=== PATIENT | male | born 1950 | race Caucasian/White ===

== ENCOUNTER → 2017-06-05 08:12 | Outpatient (CLI) | payer MEDICARE, OTHER, SELFPAY ==
--- NOTE | 2017-06-05 08:17 | EKG12_ITS ---
Test Reason : PRE OP Blood Pressure : / mmHG Vent. Rate : 069 BPM Atrial Rate : 069 BPM P-R Int : 200 ms QRS Dur : 068 ms QT Int : 388 ms P-R-T Axes : 045 018 024 degrees QTc Int : 415 ms Normal sinus rhythm Normal ECG When compared with ECG of 16-MAY-2014 09:37, Vent. rate has decreased BY 43 BPM Confirmed by ANGELIQUE VILLATORO, JUANITO ([id number]), film and video editor DREAD MADRID ([id number] on 06/06/2017 8:13:08 AM Referred By: Dariel Galan Confirmed By:JUANITO MERINO MD
== END ==
PROVIDERS: Family Provider Family Medicine; PCP Family Medicine; Visit Provider Urology
DX: I10 Essential (primary) hypertension (principal); E11.9 Type 2 diabetes mellitus without complications; E78.00 Pure hypercholesterolemia, unspecified
CPT/HCPCS: 93005

== ENCOUNTER 2017-09-18 05:35 | Inpatient (IN) | payer MEDICARE, OTHER, SELFPAY ==
[2017-08-30 14:05] VITALS: BP 146/70; PULSE 83; RESP 18; TEMP 36.3; O2SAT 93; BMI 46.7
[2017-08-30 14:36] LABS: Hematocrit 38.8 % (40-54); Hemoglobin 13.3 g/dl (13.0-16.5); Mean Corp Hgb Conc 34.3 g/gl (32-36); Mean Corpuscular Hgb 30.8 pg (27.0-32.0); Mean Corpuscular Volume 89.8 fL (80-94); Mean Platelet Vol. 10.3 fl (6.2-12.0); Platelet Count 67 K/mm3 (150-450); RBC Distribution Width CV 14.1 % (11.6-14.6); RBC Distribution Width SD 46.8 fl (35.1-43.9); Red Blood Count 4.32 M/mm3 (4.6-6.2); White Blood Count 2.9 K/mm3 (4.4-11.0)
[2017-08-30 14:37] LABS: Scan Indicated on CBC? Y/N NO
[2017-08-30 14:51] LABS: Anion Gap 6 (5-15); BUN 9 mg/dL (7-18); BUN/Creat Ratio 10.5 RATIO (10-20); Calcium,Total 8.8 mg/dL (8.5-10.1); Chloride 104 mmol/L (98-107); Creatinine, Serum 0.86 mg/dL (0.70-1.30); EST Glomerular Filtration Rate 94 mL/min (>60); Est Glom Filt Rate - Afr Amer 113 mL/min (>60); Estimated Creatinine Clearance 74.19 ml/min; Glucose 259 mg/dL (74-106); Potassium 4.1 mmol/L (3.5-5.1); Sodium Level 135 mmol/L (136-145)
[2017-09-18] VITALS (11 sets, daily range): BP systolic 122–166; BP diastolic 64–81; PULSE 80–93; RESP 14–18; TEMP 35.8–36.6; O2SAT 94–98; BMI 46.0; BMI 46.3
[2017-09-18 07:08] LABS: Platelet Count 61 K/mm3 (150-450)
--- NOTE | 2017-09-18 15:45 | RAD_ITS ---
STUDY: X-RAY - PELVIS AND LEFT HIP REASON FOR EXAM: Male, 66 years old. Postop TECHNIQUE: Radiological exam, hip, unilateral, with pelvis when performed; 2 or 3 views. COMPARISON: None. FINDINGS: The patient is status post left hip arthroplasty. The hardware is intact and alignment is satisfactory. RAD/Hip Min 2 Views (Portable) IMPRESSION: Status post left hip arthroplasty with intact hardware and satisfactory alignment. Electronically Signed: Billy Walker, at 17:14 EDT Tel , Service support ,
[2017-09-18] MEDS: Lactated Ringers 1,000 ML 125 ML IV (17:10)
[2017-09-18] MEDS: Cefazolin 1 GM/50 ML BAG IV (22:21)
[2017-09-18] MEDS: Glucerna Shake 120 ML LIQUID PO (22:22)
[2017-09-18] MEDS: Tamsulosin HCl 0.4 MG Capsule PO (22:22)
[2017-09-18] MEDS: Atorvastatin Calcium 10 MG Tablet PO (22:22)
[2017-09-18] MEDS: Acetaminophen 500 MG Tablet 1000 MG PO (22:23)
[2017-09-18] MEDS: Senna/Docusate Sodium 1 Tablet 2 TABLET PO (22:23)
[2017-09-19 02:49] VITALS: BP 130/67; PULSE 86; RESP 16; TEMP 37.1; O2SAT 99
[2017-09-19 05:55] LABS: Hemoglobin 10.4 g/dl (13.0-16.5); Mean Corp Hgb Conc 33.5 g/gl (32-36); Mean Corpuscular Hgb 30.6 pg (27.0-32.0); Mean Corpuscular Volume 91.2 fL (80-94); Mean Platelet Vol. 9.5 fl (6.2-12.0); Platelet Count 66 K/mm3 (150-450); RBC Distribution Width CV 14.1 % (11.6-14.6); RBC Distribution Width SD 46.9 fl (35.1-43.9)
[2017-09-19 06:03] LABS: Scan Indicated on CBC? Y/N NO
[2017-09-19 06:17] LABS: Anion Gap 7 (5-15); BUN 12 mg/dL (7-18); BUN/Creat Ratio 17.4 RATIO (10-20); Calcium,Total 7.6 mg/dL (8.5-10.1); Chloride 106 mmol/L (98-107); Creatinine, Serum 0.69 mg/dL (0.70-1.30); EST Glomerular Filtration Rate 121 mL/min (>60); Est Glom Filt Rate - Afr Amer 147 mL/min (>60); Glucose 170 mg/dL (74-106); Potassium 4.2 mmol/L (3.5-5.1); Sodium Level 139 mmol/L (136-145)
[2017-09-19] MEDS: Acetaminophen 500 MG Tablet 1000 MG PO ×3 (06:44→21:28)
[2017-09-19] MEDS: Cefazolin 1 GM/50 ML BAG IV (06:44)
[2017-09-19 06:51] LABS: Bedside Glucose 169 mg/dL (70-110)
[2017-09-19] MEDS: oxyCODONE 5 MG Tablet PO ×2 (07:57→12:15)
[2017-09-19] MEDS: Aspirin 325 MG Tablet PO (07:58)
[2017-09-19] MEDS: Finasteride 5 MG Tablet PO (07:59)
[2017-09-19] MEDS: Cyanocobalamin 500 MCG Tablet 1000 MCG PO (07:59)
[2017-09-19] MEDS: Famotidine 20 MG Tablet PO (07:59)
[2017-09-19] MEDS: Celecoxib 200 MG Capsule PO ×2 (07:59→20:00)
[2017-09-19] MEDS: Atenolol 25 MG Tablet 12.5 MG PO (08:00)
[2017-09-19] MEDS: Losartan Potassium 50 MG Tablet PO (08:01)
[2017-09-19 08:07] VITALS: BP 120/63; PULSE 98; RESP 18; TEMP 36.9; O2SAT 95
--- NOTE | 2017-09-19 09:24 | PCM.PN.ORT ---
Subjective: Patient is resting in bed during exam. No adverse events overnight. He bled through his bandage. It had to be changed. The nurse admits that she held his Pradaxa this morning but gave him aspirin. He did receive platelets yesterday. He currently denies chest pain, shortness of breath, dizziness, calf pain. His plan is for discharge to home upon leaving the hospital. Objective: Patient is alert and oriented ?3. No acute distress at rest. Breathing easily without respiratory distress. Inspection of left hip reveals a dressing with 2 borders that are covered with moist bloody drainage. Negative Keron bilaterally. Sensation intact to light touch bilaterally. Pedal pulses present and equal bilaterally. Without signs of DVT. Neurovascularly intact. - Physical Exam Vital Signs Temp Pulse Resp BP Pulse Ox 98.5 F 98 18 120/63 95 09/19/17 08:07 09/19/17 08:07 09/19/17 08:07 09/19/17 08:07 09/19/17 08:07 Oxygen Flow Rate (L/min) 2 Oxygen Delivery Method Room Air Weight: 132.5 kg Body Mass Index (BMI) 46.3 Finger Stick Blood Glucose 161 Intake and Output for Last 24 Hours 09/17/17 09/18/17 09/19/17 23:59 23:59 23:59 Intake Total 3200 / 3200 3097 / 3097 Output Total 1400 / 1400 Balance 3200 / 3200 1697 / 1697 Laboratory Tests Past 24 Hrs 09/18/17 09/19/17 09/19/17 08:15 05:18 05:18 WBC 4.0 L RBC 3.40 L Hgb 10.4 L Hct 31.0 L MCV 91.2 MCH 30.6 MCHC 33.5 RDW 14.1 RDW Differential 46.9 H Plt Count 66 L MPV 9.5 Sodium 139 Potassium 4.2 Chloride 106 Carbon Dioxide 26.0 Anion Gap 7 BUN 12 Creatinine 0.69 L Estim Creat Clear Calc 63.80 Est GFR (MDRD) Af Amer 147 Est GFR (MDRD) Non-Af 121 BUN/Creatinine Ratio 17.4 Glucose 170 H Calcium 7.6 L Blood Type O POSITIVE Antibody Screen NEGATIVE POC Glucose 09/19/17 06:47 POC Glucose 169 H Medical Necessity - Tobacco Use Smoking Status: Former smoker Tobacco Use: Non-smoker Assessment/Plan All Active Problems History of cholecystectomy (Acute) Prolonged pt (prothrombin time) (Acute) Tachycardia (Acute) Leukocytosis (Acute) Hyperlipidemia (Acute) Diabetes mellitus, type II (Acute) Morbid obesity (Acute) Shortness of breath (Acute) Hypertension (Acute) Paroxysmal atrial fibrillation (Acute) Obstructive sleep apnea (Acute) 1. Status post left JOSE; postop day #1 2. Continue OxyIR and Tylenol for pain control 3. DVT prophylaxis; bilateral teds, SCDs discontinue aspirin therapy resume Pradaxa therapy 4. Begin PT/OT; weightbearing as tolerated left lower extremity with a walker. Hip dislocation precautions 5. Drop in hemoglobin hematocrit, thrombocytopenia; status post platelet transfusion. Currently without indication for transfusion continue to monitor 6. Leukopenia 7. Encourage incentive spirometry 8. Continue discharge planning with case management
--- NOTE | 2017-09-19 10:38 | CASEMGMT ---
WOLFGANG DIAZ Face to Face with patient for initial transition planning/care coordination assessment. WOLFGANG DIAZ introduced self and role at [facility]. Patient lying in bed, alert and oriented. Patient willing to participate in assessment and is able to answer all questions appropriately. Care providers, pharmacy, and demographics verified. Patient lives with in 2 story home with first floor setup. Patient states that he has a walker, cane, shower chair, and grab bars at home. Patient wishes to discharge home with outpatient therapy through [facility] with providing transportation. Patient states he has no further needs or concerns at this time. CM to follow for discharge planning needs that may arise. Disposition Plan: Patient to discharge home with outpatient therapy, family support, and follow-up plans in place.
[2017-09-19] MEDS: [UNRECOGNIZED DRUG - OTHER] SQ ×2 (12:14→20:00)
[2017-09-19] MEDS: INSULIN DEGLUDEC SQ ×2 (12:14→20:00)
[2017-09-19 14:00] VITALS: BP 121/65; PULSE 88; RESP 18; TEMP 36.7; O2SAT 95
[2017-09-19 17:45] LABS: Bedside Glucose 144 mg/dL (70-110)
[2017-09-19 17:50] LABS: Bedside Glucose 161 mg/dL (70-110)
[2017-09-19] MEDS: Atorvastatin Calcium 10 MG Tablet PO (19:59)
[2017-09-19 20:00] VITALS: BP 124/75; PULSE 100; RESP 18; TEMP 37.1; O2SAT 94
[2017-09-19] MEDS: Tamsulosin HCl 0.4 MG Capsule PO (20:00)
--- NOTE | 2017-09-19 20:04 | NURSING ---
Patient requesting PM meds now, states he normally takes his PM meds @ 1900.
[2017-09-19] MEDS: 0.9% NaCl Peripheral Flush Adult/Peds IV (21:30)
[2017-09-20 02:19] VITALS: BP 127/71; PULSE 102; RESP 18; TEMP 36.8; O2SAT 94
[2017-09-20] MEDS: Dabigatran Etexilate Mesylate 150 MG Capsule PO (06:08)
[2017-09-20] MEDS: Acetaminophen 500 MG Tablet 1000 MG PO ×2 (06:08→14:22)
[2017-09-20 06:14] LABS: Hematocrit 29.1 % (40-54); Hemoglobin 9.9 g/dl (13.0-16.5); Mean Corpuscular Hgb 31.7 pg (27.0-32.0); Mean Corpuscular Volume 93.3 fL (80-94); Mean Platelet Vol. 10.4 fl (6.2-12.0); Platelet Count 57 K/mm3 (150-450); RBC Distribution Width CV 13.8 % (11.6-14.6); RBC Distribution Width SD 45.3 fl (35.1-43.9); Red Blood Count 3.12 M/mm3 (4.6-6.2); White Blood Count 2.8 K/mm3 (4.4-11.0)
[2017-09-20 06:56] LABS: Scan Indicated on CBC? Y/N NO
--- NOTE | 2017-09-20 07:34 | PCM.PN.ORT ---
Subjective: Patient sitting up in bed, alert. Denies chest pain, shortness breath, calf pain, nausea vomiting. Has no other complaints. Patient ready for discharge home. Objective: Patient's dressing is clean dry intact. Patient had postop oozing, per nursing dressing was changed last night, and has remained dry at this time. Patient's thigh is nontender with minimal swelling of the operative leg. Calf is nontender, neurovascular is otherwise intact. Negative signs and symptoms of DVT. Patient's platelet count continues to remain low as noted in the lab results vital signs otherwise within normal limits. Patient is afebrile and neurovascular is otherwise intact. - Physical Exam General: Alert, Oriented x3, Cooperative HEENT: PERRLA Neurological: Cranial nerves II-XII grossly intact Psych/Mental Status: Normal Affect, Alert and oriented to time, place, person, mood and affect Vital Signs Temp Pulse Resp BP Pulse Ox 98.2 F 102 H 18 127/71 H 94 09/20/17 02:19 09/20/17 02:19 09/20/17 02:19 09/20/17 02:19 09/20/17 02:19 Oxygen Flow Rate (L/min) 2 Oxygen Delivery Method Room Air Weight: 132.5 kg Body Mass Index (BMI) 46.3 Finger Stick Blood Glucose 161 Intake and Output for Last 24 Hours 09/18/17 09/19/17 09/20/17 23:59 23:59 23:59 Intake Total 3200 / 3200 3097 / 3097 Output Total 1400 / 1400 Balance 3200 / 3200 1697 / 1697 Laboratory Tests Past 24 Hrs 09/20/17 05:28 WBC 2.8 L RBC 3.12 L Hgb 9.9 L Hct 29.1 L MCV 93.3 MCH 31.7 MCHC 34.0 RDW 13.8 RDW Differential 45.3 H Plt Count 57 L MPV 10.4 POC Glucose 09/18/17 09/18/17 16:53 06:12 POC Glucose 161 H 144 H Medical Necessity - Tobacco Use Smoking Status: Former smoker Tobacco Use: Non-smoker Assessment/Plan All Active Problems History of cholecystectomy (Acute) Prolonged pt (prothrombin time) (Acute) Tachycardia (Acute) Leukocytosis (Acute) Hyperlipidemia (Acute) Diabetes mellitus, type II (Acute) Morbid obesity (Acute) Shortness of breath (Acute) Hypertension (Acute) Paroxysmal atrial fibrillation (Acute) Obstructive sleep apnea (Acute) Status post right total hip Chronic low platelet count Plan 1. Continue all pain medications as prescribed 2. Continue Pradaxa as prescribed for postop DVT prophylaxis 3. Continue physical therapy outpatient, at [facility]. Weight-bear as tolerated with walker 4. Follow-up as scheduled with Dr. Cruz 5. Follow-up in 1-2 weeks with primary care doctor for reevaluation of platelet count 6. Discharge home today
[2017-09-20 07:35] VITALS: O2SAT 93
--- NOTE | 2017-09-20 07:46 | PCM.DC.THR ---
Discharge Diet: No Restrictions Discharge Activity: May Not Drive, May Shower, Use Walker May shower in (days): 3 - only if incision is dry and without drainage. Do NOT soak/submerge in tub/pool/ogden/stream/hot tub. May resume sexual activity in: No Restrictions Ice area for (Minutes): 20 - every hour while awake Weight Bearing Status: Weight bearing as tolerated Lifting Restrictions: 20 pounds Elevate: Operative Extremity Call your doctor if your incision/area has: Continuous Slow Oozing, Sudden Increased Bleeding, Increased Pain/ Swelling, Increased Redness, Foul Smelling Discharge Call your doctor if you observe: Fever of 101 or Higher, Inability to urinate, Inability to have a bowel movement, Shortness of breath, Fainting spells, Chest pain, Increased palpitations (irregular heartbeat), Calf discomfort, Uncontrolled pain Change Dressing in (Days):: 0 - Change daily and as needed. Remove Dressing in (days):: 9 Cleanse incision/area with: Soap & Water Allergies/Adverse Reactions: Allergies adhesive Allergy (Verified 08/30/17 13:53) Hives Sulfa (Sulfonamide Antibiotics) Allergy (Verified 08/30/17 13:53) Hives Medications to take at Discharge Atenolol [Tenormin (beta frank)] 12.5 mg PO DAILY 04/03/13 Losartan Potassium [Cozaar] 50 mg PO DAILY 04/03/13 Simvastatin [Zocor] 20 mg PO QHS 04/03/13 Dabigatran Etexilate Mesylate [Pradaxa] 150 mg PO DAILY@0600 12/05/16 Metformin HCl [Glucophage] 1,500 mg PO LUNCH 12/05/16 Tamsulosin HCl [Flomax] 0.4 mg PO QHS 12/05/16 Cholecalciferol (VIT D3) [Vitamin D3] 1,000 unit PO BID 08/30/17 Cyanocobalamin [Vitamin B12] 1,000 mcg PO DAILY@0800 08/30/17 Finasteride [Proscar] 5 mg PO DAILY 08/30/17 Insulin Degludec/Liraglutide [Xultophy 100 Unit-3.6MG/ml Pen] 25 unit SQ BID 08/30/17 Acetaminophen [Tylenol] 1,000 mg PO Q8 #90 tab 09/20/17 Oxycodone [Oxyir] 5 - 10 mg PO Q6H PRN PRN 7 Days #90 tab 09/20/17 The following prescriptions were given: Oxycodone [Oxyir] 5 - 10 mg PO Q6H PRN PRN 7 Days #90 tab PRN Reason: Mod-Severe Pain (-01/16) Acetaminophen [Tylenol] 1,000 mg PO Q8 #90 tab Primary Care Physician: Nishant Waller [Primary Care Provider] - Please Follow Up With: Cherelle Cabrera When: as scheduled
[2017-09-20 08:17] VITALS: BP 128/78; PULSE 102; RESP 18; TEMP 36.9; O2SAT 95
[2017-09-20] MEDS: Cyanocobalamin 500 MCG Tablet 1000 MCG PO (08:20)
[2017-09-20] MEDS: Atenolol 25 MG Tablet 12.5 MG PO (08:21)
[2017-09-20] MEDS: Senna/Docusate Sodium 1 Tablet 2 TABLET PO (08:21)
[2017-09-20] MEDS: Celecoxib 200 MG Capsule PO (08:22)
[2017-09-20] MEDS: Losartan Potassium 50 MG Tablet PO (08:23)
[2017-09-20] MEDS: Famotidine 20 MG Tablet PO (08:23)
[2017-09-20] MEDS: Finasteride 5 MG Tablet PO (08:24)
[2017-09-20] MEDS: INSULIN DEGLUDEC SQ (08:26)
[2017-09-20] MEDS: [UNRECOGNIZED DRUG - OTHER] SQ (08:26)
--- NOTE | 2017-09-20 09:02 | PCA ---
pt in therapy
[2017-09-20] MEDS: oxyCODONE 5 MG Tablet PO (12:10)
--- NOTE | 2017-09-20 13:14 | PCA ---
pt in therapy
[2017-09-20 14:30] VITALS: BP 142/62; PULSE 89; RESP 18; TEMP 37.1; O2SAT 92
[2017-09-25 12:25] LABS: Bedside Glucose 269 mg/dL (70-110)
[2017-09-25 12:26] LABS: Bedside Glucose 163 mg/dL (70-110)
== END 2017-09-20 14:33 | disposition home or self-care (01) | DRG 470 ==
PROVIDERS: Anesthesiology; Admitting Provider Orthopaedic Surgery; Family Provider Family Medicine; PCP Family Medicine; Visit Provider Orthopaedic Surgery
PROC: 0SRB0JZ Replacement of Left Hip Joint with Synthetic Substitute, Open Approach (ICD-10-PCS; CPT 27130; principal; 2017-09-18 06:50)
DX: M16.12 Unilateral primary osteoarthritis, left hip (principal); Z68.42 Body mass index [BMI] 45.0-49.9, adult; D69.6 Thrombocytopenia, unspecified; R71.0 Precipitous drop in hematocrit; R79.1 Abnormal coagulation profile; I48.0 Paroxysmal atrial fibrillation; E11.9 Type 2 diabetes mellitus without complications; I10 Essential (primary) hypertension; E78.00 Pure hypercholesterolemia, unspecified; K58.9 Irritable bowel syndrome, unspecified; E66.09 Other obesity due to excess calories; Z96.653 Presence of artificial knee joint, bilateral; Z79.02 Long term (current) use of antithrombotics/antiplatelets; Z79.899 Other long term (current) drug therapy
CPT/HCPCS: 36415; 73502; 80048; 82962; 83036; 85027; 85049; 86850; 86900; 86965; 87077; 87081; 97110; 97116; 97162; 97165; 97530; 97535; 97802; C1776; J7030; J7040; J7120; P9035; A4216; J2405

== ENCOUNTER → 2019-09-08 15:42 | Outpatient (CLI) | payer MEDICARE, OTHER, SELFPAY | PROVIDERS: PCP Family Medicine; Referring Provider Urology; Visit Provider Urology | DX: Z12.5 Encounter for screening for malignant neoplasm of prostate (principal) | CPT/HCPCS: 36415; 84153; G0103 ==

== ENCOUNTER → 2019-09-10 11:15 | Outpatient (CLI) | payer MEDICARE, OTHER, SELFPAY ==
[2019-09-10 13:02] LABS: PSA,Total - Annual Screen 0.92 ng/mL (0.00-4.00)
== END ==
PROVIDERS: PCP Family Medicine; Referring Provider Urology; Visit Provider Urology
DX: Z12.5 Encounter for screening for malignant neoplasm of prostate (principal)
CPT/HCPCS: 36415; 84153; G0103

== ENCOUNTER 2020-04-29 16:24 | Emergency (ER) | payer MEDICARE, OTHER, SELFPAY ==
[2020-04-29 16:25] VITALS: BP 135/73; PULSE 102; RESP 18; TEMP 36.7; O2SAT 95; BMI 44.6
[2020-04-29 16:28] VITALS: BP 135/73; PULSE 102; RESP 18; TEMP 36.7; O2SAT 95
--- NOTE | 2020-04-29 16:39 | ED.VIS.GEN ---
History of Present Illness Chief Complaint: Shortness of Breath Informant: Patient Onset: Days Context: Gradual Onset Timing: Intermittent Current Severity: Mild Maximum Severity: Moderate Narrative: Patient is a 69-year-old male history of mild COPD and atrial fibrillation the presents to the emergency department with cough and shortness of breath. Patient states he tested positive for Covid about 6 days ago. He states that he had some mild diarrhea, diminished appetite, loss of taste or smell. He is also had some low-grade fevers. He states that he is been using albuterol with some improvement, but then he will get dyspneic and have increasing cough. He denies orthopnea or weight gain. He denies any chest pain. He denies any pain with taking a deep breath. Prior similar symptoms: No Recent Illness/Hospitalization: No Past Medical History - Allergies and Home Meds Allergies/Adverse Reactions: Allergies adhesive Allergy (Verified 08/30/17 13:53) Hives Sulfa (Sulfonamide Antibiotics) Allergy (Verified 08/30/17 13:53) Hives Primary Care Physician: Nishant Waller MD [Primary Care Provider] - Prior records reviewed: Yes Past Medical History: - - Hypertension, COPD Surgical History: cholecystectomy - Laparoscopic cholecystectomy and 05/12/[address] Griffiths, - Smoking Status: Former smoker - Family History Maternal Family History: Reports: No pertinent history Paternal Family History: Reports: No pertinent history Review of Systems General: Reports: Fever. Denies: Chills, Sweats Eyes: Denies: Visual changes - bilaterally, Diplopia ENT: Denies: Rhinorrhea, Sore throat Cardiovascular: Denies: Chest pain, Palpitations Respiratory: Reports: Dyspnea, Cough. Denies: Dyspnea on exertion Gastrointestinal: Denies: Abdominal pain, Nausea, Vomiting, Diarrhea, Melena, Hematochezia Genitourinary: Denies: Dysuria, Hematuria, Frequency Musculoskeletal: Denies: Back pain, Extremity Pain Skin: Denies: Rash, Wounds Neurological: Denies: Headache, Weakness, Numbness Physical Exam Vital Signs/Narrative: Vital Signs Temp Pulse Resp BP Pulse Ox 04/29/20 16:28 98.0 F 102 H 18 135/73 H 95 04/29/20 16:25 98.0 F 102 H 18 135/73 H 95 Inital Vital Signs reviewed: Yes General: Well nourished, Well developed, No Acute Distress Head: Normocephalic, Atraumatic Eyes: Perrl, EOMI ENT: Moist mucous membranes, No rhinorrhea Neck: Supple, Nontender Cardiovascular: Regular rate, Regular rhythm, No murmurs Respiratory: No distress, Chest nontender, Diminished Abdomen: Soft, Nontender, Nondistended, Normal bowel sounds Back: Nontender, Normal Inspection Extremities: Nontender, No edema Skin: Normal color, No rash Neurological: Alert, Oriented x3, Cranial nerves II-XII grossly intact, Normal Strength, Normal Sensation Psychological: Normal affect, Normal Mood Diagnostic/Tx/Re-eval Abnormal Lab Results 04/29/20 04/29/20 04/29/20 17:06 17:06 17:06 WBC 2.3 L RBC 4.91 Hgb 14.9 Hct 44.5 MCV 90.6 MCH 30.3 MCHC 33.5 RDW Std Deviation 45.9 H RDW Coeff of Taras 13.6 Plt Count 62 L MPV 10.8 Immature Gran % (Auto) 0.400 Neut % (Auto) 60.5 Lymph % (Auto) 26.1 [place] % (Auto) 11.7 H Eos % (Auto) 0.9 Baso % (Auto) 0.4 Absolute Neuts (auto) 1.4 L Absolute Lymphs (auto) 0.60 L Nucleated RBC % 0 Sodium 132 L Potassium 4.2 Chloride 102 Carbon Dioxide 23.0 Anion Gap 7 BUN 12 Creatinine 0.90 Estim Creat Clear Calc 67.94 Est GFR (MDRD) Af Amer 108 Est GFR (MDRD) Non-Af 89 BUN/Creatinine Ratio 13.4 Glucose 253 H Lactic Acid 2.4 H* Calcium 8.6 Total Bilirubin 1.20 H AST 44 H ALT 33 Alkaline Phosphatase 84 B-Natriuretic Peptide Total Protein 7.4 Albumin 3.0 L Globulin 4.4 H Albumin/Globulin Ratio 0.7 L 04/29/20 17:06 WBC RBC Hgb Hct MCV MCH MCHC RDW Std Deviation RDW Coeff of Taras Plt Count MPV Immature Gran % (Auto) Neut % (Auto) Lymph % (Auto) [place] % (Auto) Eos % (Auto) Baso % (Auto) Absolute Neuts (auto) Absolute Lymphs (auto) Nucleated RBC % Sodium Potassium Chloride Carbon Dioxide Anion Gap BUN Creatinine Estim Creat Clear Calc Est GFR (MDRD) Af Amer Est GFR (MDRD) Non-Af BUN/Creatinine Ratio Glucose Lactic Acid Calcium Total Bilirubin AST ALT Alkaline Phosphatase B-Natriuretic Peptide 6.8 Total Protein Albumin Globulin Albumin/Globulin Ratio - Rhythm Strip Rhythm Strip: Sinus Rhythm Rate: 80 Ectopy: None - Medical Decision Making Patient presents Covid positive with cough. He is not hypoxic or tachypneic. He was given a albuterol treatment and Decadron. On reevaluation, feeling markedly improved. Chest x-ray was obtained and reviewed by myself. There is no focal infiltrative process. His labs are relatively unremarkable. He does have some leukopenia consistent with his Covid. His lactic is 2.4, but he is been having diarrhea and is on Metformin. I do not feel this represents sepsis. On reevaluation, he continues to rest comfortably without need for supplemental oxygen. At this point, I do feel that he safe for outpatient follow-up. Impression 1. COVID-19 ED Disposition - Plan for ED Patient: Instructions: Coronavirus Disease 2019 (COVID-19): Overview Prescriptions: Dexamethasone [Decadron] 6 mg PO DAILY 5 Days #5 tab Prescription Printed Referrals: Nishant Waller MD [Primary Care Provider] -
[2020-04-29] MEDS: Acetaminophen 500 MG Tablet 1000 MG PO (17:14)
[2020-04-29] MEDS: dexAMETHasone 10 MG/ML Vial 6 MG IV (17:14)
[2020-04-29 17:20] VITALS: O2SAT 95
--- NOTE | 2020-04-29 17:20 | RAD_ITS ---
STUDY: X-RAY CHEST REASON FOR EXAM: Male, 69 years old. PT TESTED POSITIVE FOR COVID RILEY, C/O COUGH, SOB, FEVER, H/A, LOSE OF TASTE and amp; SMELL, CHILLS, DIARRHEA TECHNIQUE: AP portable COMPARISON: 05/16/2014 FINDINGS: Less than optimal inspiratory effort is seen.. There is discoid atelectasis in left lower lobe. There is patchy area of increased density in left lower lobe possibly representing atypical viral pneumonia. There is no demonstrated pleural abnormality. Normal size heart. Normal mediastinum and cyn. Normal visualized pulmonary arteries. Normal visualized aortic arch and descending thoracic aorta. Dorsal spine demonstrates degenerative change. Normal visualized ribs, clavicles, and shoulders. There is no demonstrated abnormality of the visualized soft tissue structures of the upper abdomen. RAD/Chest 1 View (Portable) IMPRESSION: Findings suspicious for Covid 19 pneumonia. Clinical correlation recommended. Electronically Signed: Mio Kerns MD at 18:31 EST , Service support ,
[2020-04-29 17:55] LABS: Absolute Neutrophil Count 1.4 X10^3/uL (2.0-7.7); Basophil# 0.01 X10^3/uL; Basophil% 0.4 % (0-1); Eosinophil# 0.02 X10^3/uL; Eosinophils% 0.9 % (0-5); Hematocrit 44.5 % (40-54); Hemoglobin 14.9 g/dL (13.0-16.5); Lymphocyte % 26.1 % (19-41); Mean Corp Hgb Conc 33.5 g/dL (32-36); Mean Corpuscular Hgb 30.3 pg (27.0-32.0); Mean Corpuscular Volume 90.6 fL (80-94); Mean Platelet Vol. 10.8 fl (6.2-12.0); Monocyte# 0.27 X10^3/uL; Monocyte% 11.7 % (0-10); NRBC Flagged by Analyzer 0 % (0-5); Neutrophil # 1.39 X10^3/uL (2.7-7.7); Neutrophil % 60.5 % (47-70); POSITIVE COUNT YES; POSITIVE DIFFERENTIAL YES; Platelet Count 62 K/mm3 (150-450); RBC Distribution Width CV 13.6 % (11.6-14.6); RBC Distribution Width SD 45.9 fl (35.1-43.9); Red Blood Count 4.91 M/mm3 (4.6-6.2); White Blood Count 2.3 K/mm3 (4.4-11.0)
[2020-04-29 18:06] LABS: BNP,B-Type NATRIURETIC PEPTIDE 6.8 pg/mL (0-100)
[2020-04-29 18:15] LABS: Differential Indicated SCAN CRITERIA MET
[2020-04-29 18:18] LABS: ALB/GLOB Ratio 0.7 RATIO (0.9-2.4); AST(SGOT) 44 U/L (15-37); Alanine Aminotransfer ALT/SGPT 33 U/L (16-61); Alkaline Phosphatase 84 U/L (45-117); Anion Gap 7 (5-15); BUN 12 mg/dL (7-18); BUN/Creat Ratio 13.4 RATIO (10-20); Calcium,Total 8.6 mg/dL (8.5-10.1); Chloride 102 mmol/L (98-107); EST Glomerular Filtration Rate 89 mL/min (>60); Est Glom Filt Rate - Afr Amer 108 mL/min (>60); Estimated Creatinine Clearance 67.94 ml/min; Globulin 4.4 g/dL (2.2-4.2); Glucose 253 mg/dL (74-106); Potassium 4.2 mmol/L (3.5-5.1); Protein, Total 7.4 g/dL (6.4-8.2); Sodium Level 132 mmol/L (136-145)
[2020-04-29 18:25] LABS: Lactic Acid 2.4 mmol/L (0.4-1.9)
[2020-04-29 18:29] LABS: Anisocytosis RARE; Macrocytosis RARE; Platelet Estimate MOD DEC (ADEQ); Red Cell Morphology N CHROM NORMAL (NORM C&C); Toxic Granulation RARE
[2020-04-29 19:15] VITALS: BP 154/71; PULSE 69; RESP 20; O2SAT 97
[2020-04-29 21:36] LABS: Reflex Lactate? Y
[2020-04-30 12:04] LABS: Pathologist Review Reviewed
== END 2020-04-29 19:17 | disposition home or self-care (01) ==
LOC: ED 16:59
PROVIDERS: Emergency Provider Emergency Medicine; PCP Family Medicine
DX: U07.1 COVID-19 (principal); I10 Essential (primary) hypertension; I48.91 Unspecified atrial fibrillation; J44.9 Chronic obstructive pulmonary disease, unspecified; Z87.891 Personal history of nicotine dependence; Z88.2 Allergy status to sulfonamides; Z90.49 Acquired absence of other specified parts of digestive tract
CPT/HCPCS: 71045; 80053; 83605; 83880; 85025; 96374; 99284; A4216

== ENCOUNTER 2020-05-03 08:17 | Inpatient (IN) | payer MEDICARE, OTHER, SELFPAY ==
[2020-05-03] VITALS (13 sets, daily range): BP systolic 136–157; BP diastolic 61–73; PULSE 75–90; RESP 19–29; TEMP 36.1–37.2; O2SAT 86–94; BMI 46.1; BMI 40.1
--- NOTE | 2020-05-03 08:41 | EKG12_ITS ---
Test Reason : SOB Blood Pressure : / mmHG Vent. Rate : 081 BPM Atrial Rate : 081 BPM P-R Int : 164 ms QRS Dur : 070 ms QT Int : 368 ms P-R-T Axes : 027 -01 041 degrees QTc Int : 427 ms Normal sinus rhythm Normal ECG Confirmed by JANEL VILLATORO, LIBBY ([id number]), managing editor JEREMIAH LYLES ([id number]) on 05/05/2020 11:03:47 AM Referred By: IZABELLA Confirmed By:LIBBY ISLAS MD
--- NOTE | 2020-05-03 08:43 | ED.VIS.GEN ---
History of Present Illness Chief Complaint: Shortness of Breath Informant: Patient Narrative: 69-year-old male presents on about day 11 of COVID-19 symptoms. He tested positive last Sunday. He was seen in the emergency department on and was started on Decadron and an butyryl inhaler with spacer. He tells me he was supposed to get home oxygen set up through his primary care physician but it did not happen. He does not wear oxygen at home. He denies any known lung conditions other than sleep apnea. He notes a history of a small stroke (on Pradaxa) as well as hypertension, hyperlipidemia, and type 2 diabetes. Patient states he has been up all night coughing unable to catch his breath. He notes his blood sugars are approaching 500. He denies any chest pain. No hemoptysis. Patient was noted to be 86% in triage on room air. No home oxygen. - Past Medical History (1) Diabetes mellitus, type II Status: Chronic (2) Hyperlipidemia Status: Chronic (3) Hypertension Status: Chronic (4) Morbid obesity Status: Chronic (5) Obstructive sleep apnea Status: Chronic (6) Paroxysmal atrial fibrillation Status: Chronic Past Medical History - Allergies and Home Meds Allergies/Adverse Reactions: Allergies adhesive Allergy (Verified 08/30/17 13:53) Hives Sulfa (Sulfonamide Antibiotics) Allergy (Verified 08/30/17 13:53) Hives Primary Care Physician: Nishant Waller MD [Primary Care Provider] - Surgical History: cholecystectomy - Laparoscopic cholecystectomy and 05/12/[address] Griffiths, - Lives: Spouse/ Significant Other Smoking Status: Never smoker Alcohol: None Drugs: None - Family History Maternal Family History: Reports: No pertinent history Paternal Family History: Reports: No pertinent history Review of Systems General: Reports: Chills, Fever, Malaise, Sweats Eyes: Denies: Visual changes - bilaterally, Diplopia ENT: Denies: Rhinorrhea, Sore throat Cardiovascular: Denies: Chest pain, Palpitations Respiratory: Reports: Dyspnea, Cough, Dyspnea on exertion Gastrointestinal: Reports: Diarrhea - Resolved. Denies: Abdominal pain, Nausea, Vomiting, Melena, Hematochezia Genitourinary: Denies: Dysuria, Hematuria, Frequency Musculoskeletal: Reports: Myalgias. Denies: Back pain, Extremity Pain Skin: Denies: Rash, Wounds Neurological: Denies: Headache, Weakness, Numbness Physical Exam Vital Signs/Narrative: Vital Signs Temp Pulse Resp BP Pulse Ox 05/03/20 08:26 96.9 F L 84 20 H 151/61 H 91 05/03/20 08:25 84 20 H 151/61 H 91 05/03/20 08:23 96.9 F L 90 22 H 86 Inital Vital Signs reviewed: Yes General: Well nourished, Well developed, No Acute Distress Head: Normocephalic, Atraumatic Eyes: Perrl, EOMI ENT: Moist mucous membranes, No rhinorrhea Neck: Supple, Nontender Cardiovascular: Regular rate, Regular rhythm, No murmurs Respiratory: No distress, CTA bilaterally, Chest nontender, - - With inspiratory effort Abdomen: Soft, Nontender, Nondistended, Normal bowel sounds Back: Nontender, Normal Inspection Extremities: Nontender, No edema Skin: Normal color, No rash Neurological: Alert, Oriented x3, Cranial nerves II-XII grossly intact, Normal Strength, Normal Sensation Psychological: Normal affect, Normal Mood Diagnostic/Tx/Re-eval Clinical Impression(s) from Imaging Studies Chest X-Ray 05/03/20 08:55 IMPRESSION: Minimal increased markings at the left lung base with blunting of left costophrenic angle. There has been no change since prior study. Electronically Signed: Casimiro Marie MD at 9:09 EST , Service support , Chest CTA 05/03/20 09:36 IMPRESSION: Multiple bilateral pulmonary emboli involving branches of the lower lobe pulmonary arteries. Multiple bilateral pulmonary infiltrates as described. Splenomegaly. Electronically Signed: Casimiro Marie MD at 10:41 EST , Service support , Laboratory Last Values WBC 8.2 K/mm3 (4.4-11.0) 05/03/20 08:40 RBC 4.53 M/mm3 (4.6-6.2) L 05/03/20 08:40 Hgb 13.6 g/dL (13.0-16.5) 05/03/20 08:40 Hct 40.0 % (40-54) 05/03/20 08:40 MCV 88.3 fL (80-94) 05/03/20 08:40 MCH 30.0 pg (27.0-32.0) 05/03/20 08:40 MCHC 34.0 g/dL (32-36) 05/03/20 08:40 RDW Std Deviation 43.2 fl (35.1-43.9) 05/03/20 08:40 RDW Coeff of Taras 13.2 % (11.6-14.6) 05/03/20 08:40 Plt Count 56 K/mm3 (150-450) L 05/03/20 08:40 MPV 10.9 fl (6.2-12.0) 05/03/20 08:40 Immature Gran % (Auto) 2.200 % (0.0-0.9) H 05/03/20 08:40 Neut % (Auto) 90.7 % (47-70) H 05/03/20 08:40 Lymph % (Auto) 4.6 % (19-41) L 05/03/20 08:40 [place] % (Auto) 2.4 % (0-10) 05/03/20 08:40 Eos % (Auto) 0.1 % (0-5) 05/03/20 08:40 Baso % (Auto) 0.0 % (0-1) 05/03/20 08:40 Absolute Neuts (auto) 7.4 X10^3/uL (2.0-7.7) 05/03/20 08:40 Absolute Lymphs (auto) 0.38 X10^3/uL (0.83-4.51) L 05/03/20 08:40 Nucleated RBC % 0 % (0-5) 05/03/20 08:40 Differential Comment COMMENT 05/03/20 08:40 Platelet Estimate MOD DEC (ADEQ) 05/03/20 08:40 Fibrinogen 548 mg/dl (203-444) H 05/03/20 08:40 D-Dimer Quant (PE/DVT) 0.99 FEU/ug/m (0.27-0.49) H* 05/03/20 08:40 Sodium 133 mmol/L (136-145) L 05/03/20 08:40 Potassium 4.2 mmol/L (3.5-5.1) 05/03/20 08:40 Chloride 101 mmol/L (98-107) 05/03/20 08:40 Carbon Dioxide 24.0 mmol/L (21.0-32.0) 05/03/20 08:40 Anion Gap 8 (5-15) 05/03/20 08:40 BUN 19 mg/dL (7-18) H 05/03/20 08:40 Creatinine 0.92 mg/dL (0.70-1.30) 05/03/20 08:40 Estim Creat Clear Calc 66.46 ml/min 05/03/20 08:40 Est GFR (MDRD) Af Amer 104 mL/min (>60) 05/03/20 08:40 Est GFR (MDRD) Non-Af 86 mL/min (>60) 05/03/20 08:40 BUN/Creatinine Ratio 20.6 RATIO (10-20) H 05/03/20 08:40 Glucose 312 mg/dL (74-106) H 05/03/20 08:40 Lactic Acid 2.9 mmol/L (0.4-1.9) H* 05/03/20 08:40 Calcium 8.5 mg/dL (8.5-10.1) 05/03/20 08:40 Total Bilirubin 1.60 mg/dL (0.20-1.00) H 05/03/20 08:40 AST 26 U/L (15-37) 05/03/20 08:40 ALT 28 U/L (16-61) 05/03/20 08:40 Alkaline Phosphatase 68 U/L (45-117) 05/03/20 08:40 Total Creatine Kinase 81 U/L (39-308) 05/03/20 08:40 Troponin I < 0.015 ng/mL (<0.045) 05/03/20 08:40 C-React Prot Ext Range 120.00 mg/L (0.0-3.0) H 05/03/20 08:40 Total Protein 6.5 g/dL (6.4-8.2) 05/03/20 08:40 Albumin 2.5 g/dL (3.2-5.0) L 05/03/20 08:40 Globulin 4.0 g/dL (2.2-4.2) 05/03/20 08:40 Albumin/Globulin Ratio 0.6 RATIO (0.9-2.4) L 05/03/20 08:40 Procalcitonin 0.29 ng/mL (0.00-0.09) H 05/03/20 08:40 - EKG Initial EKG Interpretation: Sinus Rhythm - EKG demonstrates a normal sinus rhythm at a rate of 81. No concerning features of ACS or ectopy noted - Medical Decision Making Patient presenting on day 11 of COVID-19 symptoms. He is already on Decadron. He presents with hypoxemia and worsening breathing. Work-up reveals significantly elevated CRP. He reveals hyperglycemia due to his diabetes and steroids. He has evidence of multiple pulmonary embolisms and COVID-19 pneumonia. His lactic acid is elevated. I think a large percentage of his lactic acid is related to hypoxemia. Plan will be admission into his hospital. ED Disposition - Plan for ED Patient: Disposition: Acute Care Hospital [facility] Diagnosis: Hyperglycemia due to diabetes mellitus, COVID-19, Hypoxemia, Pulmonary embolism, Sepsis Referrals: Nishant Waller MD [Primary Care Provider] -
--- NOTE | 2020-05-03 08:55 | RAD_ITS ---
STUDY: X-RAY CHEST REASON FOR EXAM: Male, 69 years old. covid positive week ago. sob. sats low in triage TECHNIQUE: Single AP portable view of the chest. COMPARISON: Comparison is made with prior study dated 04/29/2020. FINDINGS: EKG electrodes are seen. Minimal increased markings at the left lung base. Blunting of the left costophrenic angle. This is unchanged. Normal size heart. Normal mediastinum and cyn. Normal visualized pulmonary arteries. Normal visualized aortic arch and descending thoracic aorta. Normal visualized thoracic spine. Normal visualized ribs, clavicles, and shoulders. There is no demonstrated abnormality of the visualized soft tissue structures of the upper abdomen. RAD/Chest 1 View (Portable) IMPRESSION: Minimal increased markings at the left lung base with blunting of left costophrenic angle. There has been no change since prior study. Electronically Signed: Casimiro Marie MD at 9:09 EST , Service support ,
[2020-05-03 09:05] LABS: Absolute Lymphocyte Count 0.38 X10^3/uL (0.83-4.51); Absolute Neutrophil Count 7.4 X10^3/uL (2.0-7.7); Eosinophil# 0.01 X10^3/uL; Eosinophils% 0.1 % (0-5); Hemoglobin 13.6 g/dL (13.0-16.5); Lymphocyte # 0.38 X10^3/ul (4.0); Lymphocyte % 4.6 % (19-41); Mean Corpuscular Volume 88.3 fL (80-94); Mean Platelet Vol. 10.9 fl (6.2-12.0); Monocyte% 2.4 % (0-10); NRBC Flagged by Analyzer 0 % (0-5); Neutrophil # 7.44 X10^3/uL (2.7-7.7); Neutrophil % 90.7 % (47-70); POSITIVE COUNT YES; POSITIVE DIFFERENTIAL YES; Platelet Count 56 K/mm3 (150-450); RBC Distribution Width CV 13.2 % (11.6-14.6); RBC Distribution Width SD 43.2 fl (35.1-43.9); Red Blood Count 4.53 M/mm3 (4.6-6.2); White Blood Count 8.2 K/mm3 (4.4-11.0)
[2020-05-03 09:06] LABS: Differential Indicated SCAN CRITERIA MET
[2020-05-03 09:15] LABS: ALB/GLOB Ratio 0.6 RATIO (0.9-2.4); AST(SGOT) 26 U/L (15-37); Alanine Aminotransfer ALT/SGPT 28 U/L (16-61); Albumin, Serum 2.5 g/dL (3.2-5.0); Alkaline Phosphatase 68 U/L (45-117); Anion Gap 8 (5-15); BUN 19 mg/dL (7-18); BUN/Creat Ratio 20.6 RATIO (10-20); CPK Total, Creatine Kinase 81 U/L (39-308); Calcium,Total 8.5 mg/dL (8.5-10.1); Chloride 101 mmol/L (98-107); Creatinine, Serum 0.92 mg/dL (0.70-1.30); EST Glomerular Filtration Rate 86 mL/min (>60); Est Glom Filt Rate - Afr Amer 104 mL/min (>60); Estimated Creatinine Clearance 66.46 ml/min; Glucose 312 mg/dL (74-106); Potassium 4.2 mmol/L (3.5-5.1); Protein, Total 6.5 g/dL (6.4-8.2); Sodium Level 133 mmol/L (136-145)
[2020-05-03 09:22] LABS: Platelet Estimate MOD DEC (ADEQ)
[2020-05-03 09:25] LABS: Lactic Acid 2.9 mmol/L (0.4-1.9)
[2020-05-03 09:26] LABS: Procalcitonin 0.29 ng/mL (0.00-0.09)
--- NOTE | 2020-05-03 09:36 | CT_ITS ---
STUDY: CTA CHEST REASON FOR EXAM: Male, 69 years old. +COVID TEST X1 WEEK AGO/NEGATIVE TEST TODAY -- SHORT OF BREATH RADIATION DOSAGE (If Supplied By Facility): CTDIvol = ( 18.6 ) mGy, DLP = ( 559.25 ) mGycm TECHNIQUE: The examination was performed with the intravenous administration of IV 100mL [id number]-[id number]. Post-processing of the angiographic images was performed, with multiplanar reformation and 3D reconstruction. Individualized dose optimization techniques were used for this CT. COMPARISON: Comparison is made with prior study dated 05/18/2014. FINDINGS: There are multiple nonocclusive intraluminal filling defects in branches of the lower lobe pulmonary arteries in keeping with pulmonary emboli. Normal thoracic aorta and visualized great vessels. There is no demonstrated aortic dissection. Normal heart and pericardium. Normal mediastinum. Normal hilar regions. Normal visualized trachea and bronchi. The lungs are well expanded. There is evidence of diffuse bilateral groundglass appearance involving both lungs in the peripheral preferential distribution. This is in keeping with the patient''s history of Covid Normal pleura. Normal chest wall structures. There are degenerative changes of thoracic spine. Moderate degree of splenomegaly. CT/CTA Chest W/WO Contrast IMPRESSION: Multiple bilateral pulmonary emboli involving branches of the lower lobe pulmonary arteries. Multiple bilateral pulmonary infiltrates as described. Splenomegaly. Electronically Signed: Casimiro Marie MD at 10:41 EST , Service support ,
[2020-05-03 09:45] LABS: Fibrinogen 548 mg/dl (203-444)
[2020-05-03 09:51] LABS: D-Dimer Quantitative (DVT/PE) 0.99 FEU/ug/m (0.27-0.49)
--- NOTE | 2020-05-03 11:22 | PCM.HP.STD ---
Problem List (1) COVID-19 Status: Acute (2) Hyperglycemia due to diabetes mellitus Status: Acute (3) Hypoxemia Status: Acute (4) Pulmonary embolism Status: Acute (5) Sepsis Status: Acute (6) Diabetes mellitus, type II Status: Chronic (7) Hyperlipidemia Status: Chronic (8) Hypertension Status: Chronic (9) Morbid obesity Status: Chronic (10) Obstructive sleep apnea Status: Chronic (11) Paroxysmal atrial fibrillation Status: Chronic (12) History of cholecystectomy Status: Resolved Comment: Patient had a laparoscopic cholecystectomy on 05/12/14 (13) Shortness of breath Status: Acute (14) Intraperitoneal bleeding Status: Suspected History of Present Illness Date of Admission: 05/03/20 Chief Complaint: Shortness of breath The patient is a 69 year old M who was diagnosed with COVID-19 on 04/27/2020 at PCPs office, seen 2 days in the emergency department with worsening symptoms discharged home on Decadron. Patient presented 5 days later with progressive shortness of breath. Patient in addition did complain of headache fatigue fever and chills. Imaging studies obtained on admission demonstrated Multiple bilateral pulmonary emboli involving branches of the lower lobe pulmonary arteries. Multiple bilateral pulmonary infiltrates as described. Splenomegaly. Of note patient was on Pradaxa for paroxysmal A. fib prior to his admission. Admitted to the cohort floor with consultation placed to both pulmonary medicine and ID Past Medical History Past Medical History (Chronic Problems): Chronic Problems Hyperlipidemia (Chronic) Diabetes mellitus, type II (Chronic) Morbid obesity (Chronic) Hypertension (Chronic) Paroxysmal atrial fibrillation (Chronic) Obstructive sleep apnea (Chronic) Allergies adhesive Allergy (Verified 08/30/17 13:53) Hives Sulfa (Sulfonamide Antibiotics) Allergy (Verified 08/30/17 13:53) Hives Home Medications: Ambulatory Orders Medication Instructions Recorded Atenolol [Tenormin (beta frank)] 12.5 mg PO DAILY 04/03/13 Losartan Potassium [Cozaar] 50 mg PO DAILY 04/03/13 Simvastatin [Zocor] 20 mg PO QHS 04/03/13 Dabigatran Etexilate Mesylate 150 mg PO DAILY@0600 12/05/16 [Pradaxa] Tamsulosin HCl [Flomax] 0.4 mg PO QHS 12/05/16 metFORMIN HCl [Glucophage] 1,500 mg PO LUNCH 12/05/16 Cholecalciferol (VIT D3) [Vitamin 1,000 unit PO BID 08/30/17 D3] Cyanocobalamin [Vitamin B12] 1,000 mcg PO DAILY@0800 08/30/17 Finasteride [Proscar] 5 mg PO DAILY 08/30/17 Insulin Degludec/Liraglutide 25 unit SQ BID 08/30/17 [Xultophy 100 Unit-3.6MG/ml Pen] Acetaminophen [Tylenol] 1,000 mg PO Q8 #90 tab 09/20/17 Oxycodone [Oxyir] 5 - 10 mg PO Q6H PRN PRN 7 Days 09/20/17 #90 tab Dexamethasone [Decadron] 6 mg PO DAILY 5 Days #5 tab 04/29/20 Surgical History: cholecystectomy - Laparoscopic cholecystectomy and 05/12/[address] Griffiths, - Psychiatric History: No pertinent psych hx Lives: Spouse/ Significant Other Smoking Status: Never smoker Alcohol: None Drugs: None - *Family History Maternal History Items: - - Alzheimer's: at age 94 Paternal History Items: No pertinent history Review of Systems Constitutional: Reports: Anorexia, Chills, Fever, Weakness, Fatigue. Denies: Night Sweats, Weight Change HEENT: Denies: Head Aches, Sinus Congestion, Sinus Drainage Cardiovascular: Denies: Chest Pain, Orthopnea, Palpitations, Paroxysmal Noc. Dyspnea Respiratory: Reports: Cough, Shortness of Breath Gastrointestinal: Denies: Abdominal Pain, Hematemesis, Hematochezia, Nausea, Melena, Vomiting Genitourinary: Denies: Dysuria, Frequency, Hematuria, Urgency Musculoskeletal: Denies: Joint Pain, Joint Tenderness Skin: Denies: Rash Neurological: Denies: Focal weakness, Numbness, Tingling Psychiatric: Denies: Homicidal Ideations, Suicidal Ideations Hematologic/ Lymphatic: Denies: Easy Bruising, Easy Bleeding VTE Information - Inpt Only VTE Present on Admission: Yes VTE Mechan Device Prophylaxis: None VTE Pharm Prophylaxis ordered?: Yes Patient Problems: Active and Suspected Problems Hyperglycemia due to diabetes mellitus (Acute) COVID-19 (Acute) Hypoxemia (Acute) Pulmonary embolism (Acute) Sepsis (Acute) Shortness of breath (Acute) Intraperitoneal bleeding (Suspected) Objective: GENERAL: cooperative HEENT: Atraumatic; EYES; Anicteric, Normal Conjunctiva NECK; supple, normal thyroid, RESPIRATORY: Diminished to auscultation CARDIOVASCULAR: Regular S1 S2, GI: soft, normoactive bowel sounds, : No Renal angle tenderness; EXTREMITIES: No edema, no clubbing, MUSCULOSKELETAL: no muscle waisting NEURO: Awake; no lateralizing signs. SKIN: No Rash PSYCH; Flat affect - Physical Exam Vitals/I&O's: Vital Signs Temp Pulse Resp BP Pulse Ox 96.9 F L 77 29 H 137/61 H 94 05/03/20 08:26 05/03/20 10:08 05/03/20 10:08 05/03/20 10:08 05/03/20 10:08 Oxygen Flow Rate (L/min) 3 Oxygen Delivery Method Nasal Cannula Weight: 129.727 kg Body Mass Index (BMI) 46.1 Finger Stick Blood Glucose 161 Microbiology Past 72 Hours 05/03/20 08:52 Mucosa - Nose SARS-CoV-2 Antigen (Rapid) - Final Laboratory Results 05/03/20 08:40: Fibrinogen 548 H, D-Dimer Quant (PE/DVT) 0.99 H* 05/03/20 08:40: Sodium 133 L, Potassium 4.2, Chloride 101, Carbon Dioxide 24.0, Anion Gap 8, BUN 19 H, Creatinine 0.92, Estim Creat Clear Calc 66.46, Est GFR (MDRD) Af Amer 104, Est GFR (MDRD) Non-Af 86, BUN/Creatinine Ratio 20.6 H, Glucose 312 H, Calcium 8.5, Total Bilirubin 1.60 H, AST 26, ALT 28, Alkaline Phosphatase 68, Total Creatine Kinase 81, Troponin I < 0.015, C-React Prot Ext Range 120.00 H, Total Protein 6.5, Albumin 2.5 L, Globulin 4.0, Albumin/Globulin Ratio 0.6 L 05/03/20 08:40: Procalcitonin 0.29 H 05/03/20 08:40: WBC 8.2, RBC 4.53 L, Hgb 13.6, Hct 40.0, MCV 88.3, MCH 30.0, MCHC 34.0, RDW Std Deviation 43.2, RDW Coeff of Taras 13.2, Plt Count 56 L, MPV 10.9, Immature Gran % (Auto) 2.200 H, Neut % (Auto) 90.7 H, Lymph % (Auto) 4.6 L, [place] % (Auto) 2.4, Eos % (Auto) 0.1, Baso % (Auto) 0.0, Absolute Neuts (auto) 7.4, Absolute Lymphs (auto) 0.38 L, Nucleated RBC % 0, Differential Comment COMMENT, Platelet Estimate MOD 05/03/20 08:40: Lactic Acid 2.9 H* Assessment/Plan All Active Problems Hyperglycemia due to diabetes mellitus (Acute) COVID-19 (Acute) Hypoxemia (Acute) Pulmonary embolism (Acute) Sepsis (Acute) History of cholecystectomy (Resolved) Shortness of breath (Acute) The patient is a 69 year old M recently diagnosed with COVID-19 who presented with progressive shortness of breath. Patient in addition did complain of headache fatigue fever and chills. Imaging studies obtained on admission demonstrated Multiple bilateral pulmonary emboli involving branches of the lower lobe pulmonary arteries as well as multiple bilateral pulmonary infiltrates 1. Acute hypoxic respiratory insufficiency ?Secondary to acute COVID-19 pneumonia with superimposed bilateral pulmonary embolism and infiltrate. Admitted to the cohort floor. Patient is on Decadron did continue in addition patient was placed on supplemental oxygen titrated to keep saturation greater than 90 with consultation placed to both pulmonary medicine as well as infectious disease 2. Acute COVID-19 pneumonitis ?Management as discussed above 3. Covid induced hypercoagulable state ?Patient presented with bilateral pulmonary embolism despite being on systemic anticoagulation with Pradaxa. Pradaxa discontinued patient started on heparin 4. Paroxysmal A. fib ?Rate controlled on systemic anticoagulation with Pradaxa which is being held in view of above 5. Diabetes mellitus type II -Controlled with hyperglycemia,patient's oral hypoglycemics held. Placed on long acting insulin, Accu-Cheks a.c. and at bedtime and covered with sliding scale insulin 6. Hypertension - Blood pressure controlled, home medications continued with dose adjustment as needed 7. Dyslipidemia -Patient is on statin therapy, continued at home dose 8. BPH ?Patient is on tamsulosin did continue 9. Morbid obesity - With a BMI of 46.2 patient was counseled on weight reduction Advance planning; did discuss with the patient regarding advanced directives as well as CODE STATUS. Did explain the various scenarios involved ( FULL CODE, DNR CCA, DNR CCA with no intubation, and DNR CC and what each meant) patient elected to code with CPR and intubation if warranted. Order was placed. Time spent on discussion 18 minutes. Clinical Impression(s) from Imaging Studies Chest X-Ray 05/03/20 08:55 IMPRESSION: Minimal increased markings at the left lung base with blunting of left costophrenic angle. There has been no change since prior study. Electronically Signed: Casimiro Marie MD at 9:09 EST , Service support , Chest CTA 05/03/20 09:36 IMPRESSION: Multiple bilateral pulmonary emboli involving branches of the lower lobe pulmonary arteries. Multiple bilateral pulmonary infiltrates as described. Splenomegaly. Electronically Signed: Casimiro Marie MD at 10:41 EST , Service support , Inpatient E&M: 13885 Init Hosp L3 Procedures: 22681 Advncd Care Plan 30 Min
--- NOTE | 2020-05-03 11:51 | PCS.PANDOC ---
PANDEMIC DOCUMENTATION INITIATED: Date: 03/15/2020 Time:
[2020-05-03 12:19] LABS: Partial Thromboplast Time 33.4 Seconds (24.1-36.2)
[2020-05-03] MEDS: HEPARIN/D5w 25,000 UNITS 25,000 UNITS/250 ML IV.SOLN. 17 UNITS IV (12:44)
[2020-05-03] MEDS: Insulin Lispro 100 UNIT/ML INSULN.PEN 10 UNIT SC ×2 (12:47→16:44)
[2020-05-03 12:48] LABS: Reflex Lactate? Y
[2020-05-03] MEDS: dexAMETHasone 4 MG Tablet 6 MG PO (13:20)
[2020-05-03 13:26] LABS: Bedside Glucose 260 mg/dL (70-110)
--- NOTE | 2020-05-03 13:59 | CON.PCM_ITS ---
Reason for Consult Date of Consultation: 05/03/20 Reason for Consultation: Acute hypoxemic respiratory insufficiency History of Present Illness: The patient is a 69-year-old male, with a history as outlined below, who presented to the emergency department on May 03 with complaints of shortness of breath and nonproductive cough. The patient was initially evaluated in the emergency department on April 29 with similar complaints. At that time, he was not noted to be hypoxemic. The patient was provided with a prescription of Decadron and discharged home. The patient initially tested positive for coronavirus 6 days ago. The patient does report having been diagnosed with a lower extremity DVT a number of years ago around the time he had knee surgery. However, he has never been diagnosed with pulmonary emboli. He is currently anticoagulated on Pradaxa due to a history he said of a mini stroke. On presentation to the emergency department, the patient was noted to be afebrile and hemodynamically stable. He was initially documented to be saturating 86% on room air. Laboratory evaluation revealed evidence of lymphopenia. Coagulation profile revealed a D-dimer of 0.99. Chemistry profile was largely unremarkable. Lactate was elevated to 2.9. Total bilirubin was increased to 1.6. Troponin was negative. Procalcitonin was noted to be 0.29. CTA chest revealed evidence of bilateral pulmonary emboli along with peripherally based groundglass changes. The patient was subsequently admitted to the coronavirus cohort unit, where he was placed on a continuous heparin infusion and Decadron. Past Medical History Past Medical History (Chronic Problems): Chronic Problems Hyperlipidemia (Chronic) Diabetes mellitus, type II (Chronic) Morbid obesity (Chronic) Hypertension (Chronic) Paroxysmal atrial fibrillation (Chronic) Obstructive sleep apnea (Chronic) Allergies adhesive Allergy (Verified 08/30/17 13:53) Hives Sulfa (Sulfonamide Antibiotics) Allergy (Verified 08/30/17 13:53) Hives Home Medications: Ambulatory Orders Medication Instructions Recorded Atenolol [Tenormin (beta frank)] 12.5 mg PO DAILY 04/03/13 Losartan Potassium [Cozaar] 50 mg PO DAILY 04/03/13 Simvastatin [Zocor] 20 mg PO QHS 04/03/13 Dabigatran Etexilate Mesylate 150 mg PO DAILY@0600 12/05/16 [Pradaxa] Tamsulosin HCl [Flomax] 0.4 mg PO QHS 12/05/16 metFORMIN HCl [Glucophage] 1,500 mg PO LUNCH 12/05/16 Cholecalciferol (VIT D3) [Vitamin 1,000 unit PO BID 08/30/17 D3] Cyanocobalamin [Vitamin B12] 1,000 mcg PO DAILY@0800 08/30/17 Finasteride [Proscar] 5 mg PO DAILY 08/30/17 Insulin Degludec/Liraglutide 25 unit SQ BID 08/30/17 [Xultophy 100 Unit-3.6MG/ml Pen] Acetaminophen [Tylenol] 1,000 mg PO Q8 #90 tab 09/20/17 Oxycodone [Oxyir] 5 - 10 mg PO Q6H PRN PRN 7 Days 09/20/17 #90 tab Dexamethasone [Decadron] 6 mg PO DAILY 5 Days #5 tab 04/29/20 Surgical History: cholecystectomy - Laparoscopic cholecystectomy and 05/12/[address] Griffiths, - Psychiatric History: No pertinent psych hx Lives: Spouse/ Significant Other Smoking Status: Never smoker Alcohol: None Drugs: None - *Family History Maternal History Items: - - Alzheimer's: at age 94 Paternal History Items: No pertinent history Review of Systems Constitutional: Reports: Chills, Fever Eyes: Denies: Blurred vision, Double vision HEENT: Denies: Head Aches, Sinus Congestion, Sinus Drainage Cardiovascular: Denies: Chest Pain, Palpitations Respiratory: Reports: Cough, Shortness of Breath Gastrointestinal: Reports: Diarrhea Genitourinary: Denies: Dysuria Musculoskeletal: Denies: Joint Pain, Joint Tenderness Skin: Denies: Rash, Wounds Neurological: Denies: Numbness, Tingling, Focal weakness Psychiatric: Denies: Anxiety, Depression, Homicidal Ideations, Suicidal Ideations Hematologic/ Lymphatic: Reports: Hx of blood clot. Denies: Easy Bruising, Easy Bleeding Patient Problems: Active and Suspected Problems Hyperglycemia due to diabetes mellitus (Acute) COVID-19 (Acute) Hypoxemia (Acute) Pulmonary embolism (Acute) Sepsis (Acute) Shortness of breath (Acute) Intraperitoneal bleeding (Suspected) Objective: The patient's most recent lab work, culture data and imaging studies have all been personally reviewed. - Physical Exam Vitals/I&O's: Vital Signs Temp Pulse Resp BP Pulse Ox 98.7 F 81 19 H 143/73 H 90 05/03/20 12:51 05/03/20 12:51 05/03/20 12:51 05/03/20 12:51 05/03/20 12:51 Oxygen Flow Rate (L/min) 4 Oxygen Delivery Method Room Air Weight: 252 lb 10.396 oz Body Mass Index (BMI) 40.1 Finger Stick Blood Glucose 161 Intake and Output for Last 24 Hours 05/01/20 05/02/20 05/03/20 23:59 23:59 23:59 Intake Total 60 / 60 Balance 60 / 60 General: Alert, Cooperative, No apparent distress HEENT: Atraumatic, Normocephalic Oral: No Gingival or Mucosal Lesions/ Ulcerations Neck: Supple, No Nodes, Trachea Midline Lungs: No rhonchi, No wheeze, No rales, Diminished Cardiovascular: Regular rate, Regular Rhythm Abdomen: Bowel Sounds Present, Soft, Non Tender, Obese Extremities: No clubbing, No cyanosis, No edema Skin: No breakdown Musculoskeletal: No Tenderness to Palpation of Joints or Extremities Lymphatic: No Cervical, Supraclavicular, or Inguinal Adenopathy Neurological: Cranial nerves II-XII grossly intact, Neuro grossly intact Psych/Mental Status: Alert and oriented to time, place, person, mood and affect Labs (Last 48 Hours) 05/03/20 05/03/20 05/03/20 08:40 08:40 08:40 WBC RBC Hgb Hct MCV MCH MCHC RDW Std Deviation RDW Coeff of Taras Plt Count MPV Immature Gran % (Auto) Neut % (Auto) Lymph % (Auto) [place] % (Auto) Eos % (Auto) Baso % (Auto) Absolute Neuts (auto) Absolute Lymphs (auto) Nucleated RBC % Differential Comment Platelet Estimate APTT Fibrinogen 548 H D-Dimer Quant (PE/DVT) 0.99 H* Sodium 133 L Potassium 4.2 Chloride 101 Carbon Dioxide 24.0 Anion Gap 8 BUN 19 H Creatinine 0.92 Estim Creat Clear Calc 66.46 Est GFR (MDRD) Af Amer 104 Est GFR (MDRD) Non-Af 86 BUN/Creatinine Ratio 20.6 H Glucose 312 H Lactic Acid Calcium 8.5 Total Bilirubin 1.60 H AST 26 ALT 28 Alkaline Phosphatase 68 Total Creatine Kinase 81 Troponin I < 0.015 C-React Prot Ext Range 120.00 H Total Protein 6.5 Albumin 2.5 L Globulin 4.0 Albumin/Globulin Ratio 0.6 L Procalcitonin 0.29 H POC Glucose 05/03/20 05/03/20 05/03/20 08:40 08:40 08:40 WBC 8.2 RBC 4.53 L Hgb 13.6 Hct 40.0 MCV 88.3 MCH 30.0 MCHC 34.0 RDW Std Deviation 43.2 RDW Coeff of Taras 13.2 Plt Count 56 L MPV 10.9 Immature Gran % (Auto) 2.200 H Neut % (Auto) 90.7 H Lymph % (Auto) 4.6 L [place] % (Auto) 2.4 Eos % (Auto) 0.1 Baso % (Auto) 0.0 Absolute Neuts (auto) 7.4 Absolute Lymphs (auto) 0.38 L Nucleated RBC % 0 Differential Comment COMMENT Platelet Estimate MOD DEC APTT 33.4 Fibrinogen D-Dimer Quant (PE/DVT) Sodium Potassium Chloride Carbon Dioxide Anion Gap BUN Creatinine Estim Creat Clear Calc Est GFR (MDRD) Af Amer Est GFR (MDRD) Non-Af BUN/Creatinine Ratio Glucose Lactic Acid 2.9 H* Calcium Total Bilirubin AST ALT Alkaline Phosphatase Total Creatine Kinase Troponin I C-React Prot Ext Range Total Protein Albumin Globulin Albumin/Globulin Ratio Procalcitonin POC Glucose 05/03/20 05/03/20 12:26 13:23 WBC RBC Hgb Hct MCV MCH MCHC RDW Std Deviation RDW Coeff of Taras Plt Count MPV Immature Gran % (Auto) Neut % (Auto) Lymph % (Auto) [place] % (Auto) Eos % (Auto) Baso % (Auto) Absolute Neuts (auto) Absolute Lymphs (auto) Nucleated RBC % Differential Comment Platelet Estimate APTT Fibrinogen D-Dimer Quant (PE/DVT) Sodium Potassium Chloride Carbon Dioxide Anion Gap BUN Creatinine Estim Creat Clear Calc Est GFR (MDRD) Af Amer Est GFR (MDRD) Non-Af BUN/Creatinine Ratio Glucose Lactic Acid Pending Calcium Total Bilirubin AST ALT Alkaline Phosphatase Total Creatine Kinase Troponin I C-React Prot Ext Range Total Protein Albumin Globulin Albumin/Globulin Ratio Procalcitonin POC Glucose 260 H Microbiology 05/03/20 08:52 Mucosa - Nose SARS-CoV-2 Antigen (Rapid) - Final Clinical Impression(s) from Imaging Studies Chest X-Ray 05/03/20 08:55 IMPRESSION: Minimal increased markings at the left lung base with blunting of left costophrenic angle. There has been no change since prior study. Electronically Signed: Casimiro Marie MD at 9:09 EST , Service support , Chest CTA 05/03/20 09:36 IMPRESSION: Multiple bilateral pulmonary emboli involving branches of the lower lobe pulmonary arteries. Multiple bilateral pulmonary infiltrates as described. Splenomegaly. Electronically Signed: Casimiro Marie MD at 10:41 EST , Service support , Current Medications Acetaminophen (Acetaminophen 325 Mg Tablet) 650 mg PO Q6H PRN PRN PRN Reason: Pain Score 1-10/Temp > 100.7 F Al Hydroxide/Mg Hydroxide (Mag Hydrox/Al Hydrox/Simeth 30 Ml Udc) 30 ml PO Q6H PRN PRN PRN Reason: Gastric Burning Albuterol Sulfate (Albuterol Ih 8.5 Gm (Proair) Inhaler (200 Puffs)) 2.5 puff INHALATION Q2H PRN PRN PRN Reason: Shortness of Breath/Wheezing Atenolol (Atenolol 25 Mg Tablet) 12.5 mg PO DAILY KEERTHI Atorvastatin Calcium (Atorvastatin Calcium 20 Mg Tablet) 20 mg PO QHS KEERTHI Cholecalciferol (Cholecalciferol (Vit D3) 1,000 Unit (25mcg)) 1,000 unit PO BID KEERTHI Cyanocobalamin (Cyanocobalamin 500 Mcg Tablet) 1,000 mcg PO DAILY KEERTHI Dexamethasone (Dexamethasone 4 Mg Tablet) 6 mg PO DAILY KEERTHI Dextrose (Dextrose 50%-Water 25 Gm/50 Ml Disp.Syrin) 0 gm IV X1 PRN; Protocol PRN Reason: Hypoglycemia Finasteride (Finasteride 5 Mg Tablet) 5 mg PO DAILY KEERTHI Glucagon (Glucagon 1 Mg/Ml Syringe) 1 mg IM .X1 PRN PRN Reason: Hypoglycemia Heparin Sodium (Porcine) (Heparin Injection (Vial) 5,000 Unit/Ml Vial) 0 unit IV UD PRN; Protocol PRN Reason: dose adjustment Hydromorphone HCl (Hydromorphone 1 Mg/Ml Syringe) 1 mg IV Q4H PRN PRN PRN Reason: Pain Score 6-10 Heparin Sodium/Dextrose () 25,000 units in 250 mls @ 17 mls/hr IV .[id number] [facility]; Protocol Last Admin: 05/03/20 12:44 Dose: 1,700 units/hr, 17 mls/hr Documented by: Insulin Glargine (Insulin Glargine 100 Units/Ml Pen) 25 units SC 1100,2200 [facility] Insulin Human Lispro (Insulin Lispro 100 Unit/Ml Insuln.Pen) 0 unit SC ACHS [facility]; Protocol Insulin Human Lispro (Insulin Lispro 100 Unit/Ml Insuln.Pen) 10 unit SC BREAKFAST [facility] Insulin Human Lispro (Insulin Lispro 100 Unit/Ml Insuln.Pen) 10 unit SC DINNER [facility] Insulin Human Lispro (Insulin Lispro 100 Unit/Ml Insuln.Pen) 10 unit SC LUNCH [facility] Last Admin: 05/03/20 12:47 Dose: 10 units Documented by: Losartan Potassium (Losartan Potassium 50 Mg Tablet) 50 mg PO DAILY [facility] Magnesium Hydroxide (Magnesium Hydroxide 30 Ml Udc) 30 ml PO DAILY PRN PRN PRN Reason: Constipation Melatonin (Melatonin 3 Mg Tablet) 3 mg PO QHS PRN PRN PRN Reason: INSOMNIA Nitroglycerin (Nitroglycerin (Inpatient Use) 0.4 Mg Tab.Subl) 0.4 mg SUBLINGUAL Q5M PRN PRN Reason: CARDIAC/CHEST PAIN Ondansetron HCl (Ondansetron 4 Mg/2 Ml Vial) 4 mg IV Q8H PRN PRN PRN Reason: NAUSEA/VOMITING Oxycodone HCl (Oxycodone 5 Mg Tablet) 10 mg PO Q4H PRN PRN PRN Reason: Pain Score 4-5 Prochlorperazine Edisylate (Prochlorperazine 10 Mg/2 Ml Vial) 5 mg IV Q4H PRN PRN PRN Reason: Breakthrough nausea/vomiting Sodium Chloride (0.9% Saline Lock 10 Ml Syringe) 10 - 40 ml IV UD PRN PRN Reason: SALINE FLUSH Tamsulosin HCl (Tamsulosin Hcl 0.4 Mg Capsule) 0.4 mg PO QHS [facility] Assessment/Plan All Active Problems Hyperglycemia due to diabetes mellitus (Acute) COVID-19 (Acute) Hypoxemia (Acute) Pulmonary embolism (Acute) Sepsis (Acute) History of cholecystectomy (Resolved) Shortness of breath (Acute) RECOMMENDATIONS: 1. Wean supplemental oxygen to maintain saturations at or above 90%. 2. Continue Decadron with plans to complete a 10-day treatment course. 3. Recommend starting remdesivir. Monitor liver and renal function accordingly. 4. Discontinue Pradaxa completely at discharge. Continue heparin infusion for now. Recommend alternative oral anticoagulation regimen at discharge. 5. Encourage incentive spirometer use and mobilize patient as tolerated. IMPRESSIONS: 1. Acute hypoxemic respiratory failure secondary to COVID-19 pneumonia and bilateral pulmonary emboli At this time, the patient is relatively stable from an oxygenation status. Agree with continuing current supportive measures, including Decadron with plans to complete a 10-day treatment course. In addition, I would recommend that remdesivir also be initiated. Infectious diseases consultation is currently pending. Given the patient's pulmonary emboli, plan to continue current heparin infusion. I would strongly recommended at discharge the patient's Pradaxa be discontinued completely and the patient transition to an alternative oral anticoagulant regimen. Plan to wean supplemental oxygen to maintain saturations at or above 90%. 2. Diabetes mellitus/hypertension/hyperlipidemia/BPH/obesity/paroxysmal atrial fibrillation Complicates care, management, recovery and prognosis. As noted above, recommend complete discontinuation of Pradaxa given high risk for bleeding complications. Continue home medications as indicated. This note was generated with GoSave[employer] software. It may contain incorrect words, spelling, and punctuation that were not noted in checking the note before signing. Inpatient E&M: 80400 Init Hosp L3
--- NOTE | 2020-05-03 14:58 | CON.PCM_ITS ---
Problem List (1) COVID-19 Status: Acute Reason for Consult: covid Consulted by: Dr. Steiner History of Present Illness: The patient is a 69 year old M presented with sx since 04/23, c/o cough, AYERS, fever, change in taste/smell, diarrhea, aches, fatigue. Covid + at PCP office 04/27. Sx worsened, more dyspnea, some chest pain. CT showed PEs, admitted on dex and hep gtt. at home with cough, not sure if she got tested. Full ROS performed and neg except as noted above. - Medical History Past Medical History (Chronic Problems): Chronic Problems Hyperlipidemia (Chronic) Diabetes mellitus, type II (Chronic) Morbid obesity (Chronic) Hypertension (Chronic) Paroxysmal atrial fibrillation (Chronic) Obstructive sleep apnea (Chronic) Allergies/Adverse Reactions: Allergies adhesive Allergy (Verified 08/30/17 13:53) Hives Sulfa (Sulfonamide Antibiotics) Allergy (Verified 08/30/17 13:53) Hives Home Medications: Ambulatory Orders Medication Instructions Recorded Atenolol [Tenormin (beta frank)] 12.5 mg PO DAILY 04/03/13 Losartan Potassium [Cozaar] 50 mg PO DAILY 04/03/13 Simvastatin [Zocor] 20 mg PO QHS 04/03/13 Dabigatran Etexilate Mesylate 150 mg PO DAILY@0600 12/05/16 [Pradaxa] Tamsulosin HCl [Flomax] 0.4 mg PO QHS 12/05/16 metFORMIN HCl [Glucophage] 1,500 mg PO LUNCH 12/05/16 Cholecalciferol (VIT D3) [Vitamin 1,000 unit PO BID 08/30/17 D3] Cyanocobalamin [Vitamin B12] 1,000 mcg PO DAILY@0800 08/30/17 Finasteride [Proscar] 5 mg PO DAILY 08/30/17 Insulin Degludec/Liraglutide 25 unit SQ BID 08/30/17 [Xultophy 100 Unit-3.6MG/ml Pen] Acetaminophen [Tylenol] 1,000 mg PO Q8 #90 tab 09/20/17 Oxycodone [Oxyir] 5 - 10 mg PO Q6H PRN PRN 7 Days 09/20/17 #90 tab Dexamethasone [Decadron] 6 mg PO DAILY 5 Days #5 tab 04/29/20 - Social History SMOKING STATUS:: Never smoker Vital Signs Temp Pulse Resp BP Pulse Ox 98.7 F 81 19 H 143/73 H 90 05/03/20 12:51 05/03/20 12:51 05/03/20 12:51 05/03/20 12:51 05/03/20 12:51 Oxygen Flow Rate (L/min) 4 Oxygen Delivery Method Room Air Weight: 114.6 kg Body Mass Index (BMI) 40.1 Finger Stick Blood Glucose 161 Microbiology Past 72 Hours 05/03/20 08:52 SARS-CoV-2 Antigen (Rapid) - Final Mucosa - Nose Laboratory Tests Past 24 Hrs 05/03/20 05/03/20 05/03/20 08:40 08:40 08:40 WBC RBC Hgb Hct MCV MCH MCHC RDW Std Deviation RDW Coeff of Taras Plt Count MPV Immature Gran % (Auto) Neut % (Auto) Lymph % (Auto) [place] % (Auto) Eos % (Auto) Baso % (Auto) Absolute Neuts (auto) Absolute Lymphs (auto) Nucleated RBC % Differential Comment Platelet Estimate APTT Fibrinogen 548 H D-Dimer Quant (PE/DVT) 0.99 H* Sodium 133 L Potassium 4.2 Chloride 101 Carbon Dioxide 24.0 Anion Gap 8 BUN 19 H Creatinine 0.92 Estim Creat Clear Calc 66.46 Est GFR (MDRD) Af Amer 104 Est GFR (MDRD) Non-Af 86 BUN/Creatinine Ratio 20.6 H Glucose 312 H Lactic Acid Calcium 8.5 Total Bilirubin 1.60 H AST 26 ALT 28 Alkaline Phosphatase 68 Total Creatine Kinase 81 Troponin I < 0.015 C-React Prot Ext Range 120.00 H Total Protein 6.5 Albumin 2.5 L Globulin 4.0 Albumin/Globulin Ratio 0.6 L Procalcitonin 0.29 H 05/03/20 05/03/20 05/03/20 08:40 08:40 08:40 WBC 8.2 RBC 4.53 L Hgb 13.6 Hct 40.0 MCV 88.3 MCH 30.0 MCHC 34.0 RDW Std Deviation 43.2 RDW Coeff of Taras 13.2 Plt Count 56 L MPV 10.9 Immature Gran % (Auto) 2.200 H Neut % (Auto) 90.7 H Lymph % (Auto) 4.6 L [place] % (Auto) 2.4 Eos % (Auto) 0.1 Baso % (Auto) 0.0 Absolute Neuts (auto) 7.4 Absolute Lymphs (auto) 0.38 L Nucleated RBC % 0 Differential Comment COMMENT Platelet Estimate MOD DEC APTT 33.4 Fibrinogen D-Dimer Quant (PE/DVT) Sodium Potassium Chloride Carbon Dioxide Anion Gap BUN Creatinine Estim Creat Clear Calc Est GFR (MDRD) Af Amer Est GFR (MDRD) Non-Af BUN/Creatinine Ratio Glucose Lactic Acid 2.9 H* Calcium Total Bilirubin AST ALT Alkaline Phosphatase Total Creatine Kinase Troponin I C-React Prot Ext Range Total Protein Albumin Globulin Albumin/Globulin Ratio Procalcitonin 05/03/20 13:23 WBC RBC Hgb Hct MCV MCH MCHC RDW Std Deviation RDW Coeff of Taras Plt Count MPV Immature Gran % (Auto) Neut % (Auto) Lymph % (Auto) [place] % (Auto) Eos % (Auto) Baso % (Auto) Absolute Neuts (auto) Absolute Lymphs (auto) Nucleated RBC % Differential Comment Platelet Estimate APTT Fibrinogen D-Dimer Quant (PE/DVT) Sodium Potassium Chloride Carbon Dioxide Anion Gap BUN Creatinine Estim Creat Clear Calc Est GFR (MDRD) Af Amer Est GFR (MDRD) Non-Af BUN/Creatinine Ratio Glucose Lactic Acid 3.0 H* Calcium Total Bilirubin AST ALT Alkaline Phosphatase Total Creatine Kinase Troponin I C-React Prot Ext Range Total Protein Albumin Globulin Albumin/Globulin Ratio Procalcitonin - Other Studies Radiology: [] reviewed Other Studies: [] Route of nutrition/ use of supplements: [] Nutritional Intake: [] IV Site: [] Rao Catheter: [] - Physical Exam General: Alert, Oriented x3, Cooperative HEENT: Atraumatic, PERRLA, EOMI Neck: Supple, No Nodes Lungs: Diminished Cardiovascular: Regular rate, Regular Rhythm Abdomen: Soft, Non Tender, Non-Distended Extremities: No edema Skin: No rashes IV Site: Peripheral, without redness Musculoskeletal: No Tenderness to Palpation of Joints or Extremities Neurological: Cranial nerves II-XII grossly intact - Assessment/Plan Antibiotics: [] Assessment/Plan: [] Active and Suspected Problems Hyperglycemia due to diabetes mellitus (Acute) COVID-19 (Acute) Hypoxemia (Acute) Pulmonary embolism (Acute) Sepsis (Acute) Shortness of breath (Acute) Intraperitoneal bleeding (Suspected) covid with hypoxia and PEs - sx started 04/23, (+) covid as an outpt. with cough, recommended she get tested and quarantine. On dex and hep gtt. Will start remdesivir. Will follow, thank you
[2020-05-03] MEDS: Insulin Lispro 100 UNIT/ML INSULN.PEN SC ×2 (16:44→21:14)
[2020-05-03 17:00] LABS: Bedside Glucose 283 mg/dL (70-110)
[2020-05-03] MEDS: 0.9% Saline Lock 10 ML Syringe IV ×2 (18:46→21:15)
[2020-05-03] MEDS: Atorvastatin Calcium 20 MG Tablet PO (21:15)
[2020-05-03] MEDS: MELATONIN 3 MG TABLET PO (21:15)
[2020-05-03] MEDS: Tamsulosin HCl 0.4 MG Capsule PO (21:15)
[2020-05-03 21:31] LABS: Bedside Glucose 330 mg/dL (70-110)
[2020-05-04] VITALS (16 sets, daily range): BP systolic 116–144; BP diastolic 56–71; PULSE 59–79; RESP 18–20; TEMP 36.2–37.1; O2SAT 90–98
[2020-05-04 01:14] LABS: Absolute Lymphocyte Count 0.29 X10^3/uL (0.83-4.51); Absolute Neutrophil Count 3.1 X10^3/uL (2.0-7.7); Differential Indicated SCAN CRITERIA MET; Hematocrit 37.1 % (40-54); Hemoglobin 12.8 g/dL (13.0-16.5); Lymphocyte # 0.29 X10^3/ul (4.0); Lymphocyte % 8.3 % (19-41); Mean Corp Hgb Conc 34.5 g/dL (32-36); Mean Corpuscular Hgb 30.5 pg (27.0-32.0); Mean Corpuscular Volume 88.3 fL (80-94); Mean Platelet Vol. 11.5 fl (6.2-12.0); Monocyte# 0.09 X10^3/uL; Monocyte% 2.6 % (0-10); NRBC Flagged by Analyzer 0 % (0-5); Neutrophil # 3.08 X10^3/uL (2.7-7.7); POSITIVE COUNT YES; POSITIVE DIFFERENTIAL YES; RBC Distribution Width CV 13.3 % (11.6-14.6); White Blood Count 3.5 K/mm3 (4.4-11.0)
[2020-05-04 01:15] LABS: Platelet Count 43 K/mm3 (150-450)
[2020-05-04 01:23] LABS: Partial Thromboplast Time 98.5 Seconds (24.1-36.2)
[2020-05-04 01:26] LABS: Platelet Estimate MKD DEC (ADEQ)
[2020-05-04 01:33] LABS: ALB/GLOB Ratio 0.6 RATIO (0.9-2.4); AST(SGOT) 26 U/L (15-37); Alanine Aminotransfer ALT/SGPT 23 U/L (16-61); Albumin, Serum 2.2 g/dL (3.2-5.0); Alkaline Phosphatase 52 U/L (45-117); Anion Gap 6 (5-15); BUN 20 mg/dL (7-18); BUN/Creat Ratio 27.3 RATIO (10-20); Calcium,Total 8.5 mg/dL (8.5-10.1); Chloride 101 mmol/L (98-107); Creatinine, Serum 0.73 mg/dL (0.70-1.30); EST Glomerular Filtration Rate 112 mL/min (>60); Est Glom Filt Rate - Afr Amer 136 mL/min (>60); Estimated Creatinine Clearance 61.14 ml/min; Globulin 3.9 g/dL (2.2-4.2); Glucose 280 mg/dL (74-106); Magnesium 1.8 mg/dL (1.6-2.6); Phosphorus 2.5 mg/dL (2.5-4.9); Potassium 4.4 mmol/L (3.5-5.1); Protein, Total 6.1 g/dL (6.4-8.2); Sodium Level 133 mmol/L (136-145)
[2020-05-04] MEDS: HEPARIN/D5w 25,000 UNITS 25,000 UNITS/250 ML IV.SOLN. 15 UNITS IV (03:47)
--- NOTE | 2020-05-04 07:34 | PCM.PN.HOSP ---
Patient Problems: Active and Suspected Problems Hyperglycemia due to diabetes mellitus (Acute) COVID-19 (Acute) Hypoxemia (Acute) Pulmonary embolism (Acute) Sepsis (Acute) Shortness of breath (Acute) Intraperitoneal bleeding (Suspected) Reason for Visit: Acute hypoxic respiratory failure Bilateral multiple PEs Acute COVID-19 pneumonitis Subjective: The patient is a 69 year old M recently diagnosed with COVID-19 who presented with progressive shortness of breath. Patient in addition did complain of headache fatigue fever and chills. Imaging studies obtained on admission demonstrated Multiple bilateral pulmonary emboli involving branches of the lower lobe pulmonary arteries as well as multiple bilateral pulmonary infiltrates 05/04/2020. Patient was admitted to monitored bed. Was started on heparin drip discontinued due to drop in his platelet count to switch to Eliquis. Was also seen in consultation by Dr. Chowdhury with infectious disease did start patient on remdesivir. Patient oxygen requirements increasing currently on 8 L at rest Objective: GENERAL: cooperative HEENT: Atraumatic; EYES; Anicteric, Normal Conjunctiva NECK; supple, normal thyroid, RESPIRATORY: Diminished to auscultation CARDIOVASCULAR: Regular S1 S2, GI: soft, normoactive bowel sounds, : No Renal angle tenderness; EXTREMITIES: No edema, no clubbing, MUSCULOSKELETAL: no muscle waisting NEURO: Awake; no lateralizing signs. SKIN: No Rash PSYCH; Flat affect Vitals/I&O's: Vital Signs Temp Pulse Resp BP Pulse Ox 98.5 F 74 18 144/67 H 92 05/04/20 04:30 05/04/20 05:15 05/04/20 04:30 05/04/20 04:30 05/04/20 04:30 Oxygen Flow Rate (L/min) 5 Oxygen Delivery Method Nasal Cannula Weight: 114.6 kg Body Mass Index (BMI) 40.1 Finger Stick Blood Glucose 161 Intake and Output for Last 24 Hours 05/02/20 05/03/20 05/04/20 23:59 23:59 23:59 Intake Total 727.87 / 727.87 118.23 / 118.23 Output Total 450 / 450 Balance 277.87 / 277.87 118.23 / 118.23 Microbiology Past 72 Hours 05/04/20 Unknown Interface Orders Legionella Antigen - Final 05/04/20 Unknown Interface Orders Streptococcus pneumoniae Antigen (M - Final 05/03/20 08:52 Mucosa - Nose SARS-CoV-2 Antigen (Rapid) - Final Laboratory Results 05/03/20 08:40: Fibrinogen 548 H, D-Dimer Quant (PE/DVT) 0.99 H* 05/03/20 08:40: Sodium 133 L, Potassium 4.2, Chloride 101, Carbon Dioxide 24.0, Anion Gap 8, BUN 19 H, Creatinine 0.92, Estim Creat Clear Calc 66.46, Est GFR (MDRD) Af Amer 104, Est GFR (MDRD) Non-Af 86, BUN/Creatinine Ratio 20.6 H, Glucose 312 H, Calcium 8.5, Total Bilirubin 1.60 H, AST 26, ALT 28, Alkaline Phosphatase 68, Total Creatine Kinase 81, Troponin I < 0.015, C-React Prot Ext Range 120.00 H, Total Protein 6.5, Albumin 2.5 L, Globulin 4.0, Albumin/Globulin Ratio 0.6 L 05/03/20 08:40: Procalcitonin 0.29 H 05/03/20 08:40: WBC 8.2, RBC 4.53 L, Hgb 13.6, Hct 40.0, MCV 88.3, MCH 30.0, MCHC 34.0, RDW Std Deviation 43.2, RDW Coeff of Taras 13.2, Plt Count 56 L, MPV 10.9, Immature Gran % (Auto) 2.200 H, Neut % (Auto) 90.7 H, Lymph % (Auto) 4.6 L, [place] % (Auto) 2.4, Eos % (Auto) 0.1, Baso % (Auto) 0.0, Absolute Neuts (auto) 7.4, Absolute Lymphs (auto) 0.38 L, Nucleated RBC % 0, Differential Comment COMMENT, Platelet Estimate MOD 05/03/20 08:40: Lactic Acid 2.9 H* 05/03/20 08:40: APTT 33.4 05/03/20 12:26: POC Glucose 260 H 05/03/20 13:23: Lactic Acid 3.0 H* 05/03/20 16:42: POC Glucose 283 H 05/03/20 18:58: APTT 71.0 H 05/03/20 21:12: POC Glucose 330 H 05/04/20 01:06: WBC 3.5 L, RBC 4.20 L, Hgb 12.8 L, Hct 37.1 L, MCV 88.3, MCH 30.5, MCHC 34.5, RDW Std Deviation 43.0, RDW Coeff of Taras 13.3, Plt Count 43 L*, MPV 11.5, Immature Gran % (Auto) 1.100 H, Neut % (Auto) 88.0 H, Lymph % (Auto) 8.3 L, [place] % (Auto) 2.6, Eos % (Auto) 0.0, Baso % (Auto) 0.0, Absolute Neuts (auto) 3.1, Absolute Lymphs (auto) 0.29 L, Nucleated RBC % 0, Diff Path Review August foll, Platelet Estimate MKD 05/04/20 01:06: Sodium 133 L, Potassium 4.4, Chloride 101, Carbon Dioxide 26.0, Anion Gap 6, BUN 20 H, Creatinine 0.73, Estim Creat Clear Calc 61.14, Est GFR (MDRD) Af Amer 136, Est GFR (MDRD) Non-Af 112, BUN/Creatinine Ratio 27.3 H, Glucose 280 H, Calcium 8.5, Phosphorus 2.5, Magnesium 1.8, Total Bilirubin 1.00, AST 26, ALT 23, Alkaline Phosphatase 52, Total Protein 6.1 L, Albumin 2.2 L, Globulin 3.9, Albumin/Globulin Ratio 0.6 L 05/04/20 01:06: APTT 98.5 H* Current Medications Acetaminophen (Acetaminophen 325 Mg Tablet) 650 mg PO Q6H PRN PRN PRN Reason: Pain Score 1-10/Temp > 100.7 F Al Hydroxide/Mg Hydroxide (Mag Hydrox/Al Hydrox/Simeth 30 Ml Udc) 30 ml PO Q6H PRN PRN PRN Reason: Gastric Burning Albuterol Sulfate (Albuterol Ih 8.5 Gm (Proair) Inhaler (200 Puffs)) 2.5 puff INHALATION Q2H PRN PRN PRN Reason: Shortness of Breath/Wheezing Apixaban (Apixaban 5 Mg Tablet) 10 mg PO BID [facility] Atenolol (Atenolol 25 Mg Tablet) 12.5 mg PO DAILY [facility] Atorvastatin Calcium (Atorvastatin Calcium 20 Mg Tablet) 20 mg PO QHS [facility] Last Admin: 05/03/20 21:15 Dose: 20 mg Documented by: Cholecalciferol (Cholecalciferol (Vit D3) 1,000 Unit (25mcg)) 1,000 unit PO BID [facility] Last Admin: 05/03/20 21:15 Dose: 1,000 unit Documented by: Cyanocobalamin (Cyanocobalamin 500 Mcg Tablet) 1,000 mcg PO DAILY [facility] Dexamethasone (Dexamethasone 4 Mg Tablet) 6 mg PO DAILY [facility] Last Admin: 05/03/20 13:20 Dose: 6 mg Documented by: Dextrose (Dextrose 50%-Water 25 Gm/50 Ml Disp.Syrin) 0 gm IV X1 PRN; Protocol PRN Reason: Hypoglycemia Finasteride (Finasteride 5 Mg Tablet) 5 mg PO DAILY [facility] Glucagon (Glucagon 1 Mg/Ml Syringe) 1 mg IM .X1 PRN PRN Reason: Hypoglycemia Hydromorphone HCl (Hydromorphone 1 Mg/Ml Syringe) 1 mg IV Q4H PRN PRN PRN Reason: Pain Score 6-10 Remdesivir 100 mg/ Sodium (Chloride) 250 mls @ 125 mls/hr IV DAILY [facility] Stop: 05/07/20 11:59 Insulin Glargine (Insulin Glargine 100 Units/Ml Pen) 25 units SC 1100,2200 [facility] Last Admin: 05/03/20 21:13 Dose: 25 units Documented by: Insulin Human Lispro (Insulin Lispro 100 Unit/Ml Insuln.Pen) 0 unit SC ACHS [facility]; Protocol Last Admin: 05/03/20 21:14 Dose: 8 units Documented by: Insulin Human Lispro (Insulin Lispro 100 Unit/Ml Insuln.Pen) 10 unit SC BREAKFAST [facility] Insulin Human Lispro (Insulin Lispro 100 Unit/Ml Insuln.Pen) 10 unit SC DINNER [facility] Last Admin: 05/03/20 16:44 Dose: 10 units Documented by: Insulin Human Lispro (Insulin Lispro 100 Unit/Ml Insuln.Pen) 10 unit SC LUNCH [facility] Last Admin: 05/03/20 12:47 Dose: 10 units Documented by: Losartan Potassium (Losartan Potassium 50 Mg Tablet) 50 mg PO DAILY [facility] Magnesium Hydroxide (Magnesium Hydroxide 30 Ml Udc) 30 ml PO DAILY PRN PRN PRN Reason: Constipation Melatonin (Melatonin 3 Mg Tablet) 3 mg PO QHS PRN PRN PRN Reason: INSOMNIA Last Admin: 05/03/20 21:15 Dose: 3 mg Documented by: Nitroglycerin (Nitroglycerin (Inpatient Use) 0.4 Mg Tab.Subl) 0.4 mg SUBLINGUAL Q5M PRN PRN Reason: CARDIAC/CHEST PAIN Ondansetron HCl (Ondansetron 4 Mg/2 Ml Vial) 4 mg IV Q8H PRN PRN PRN Reason: NAUSEA/VOMITING Oxycodone HCl (Oxycodone 5 Mg Tablet) 10 mg PO Q4H PRN PRN PRN Reason: Pain Score 4-5 Prochlorperazine Edisylate (Prochlorperazine 10 Mg/2 Ml Vial) 5 mg IV Q4H PRN PRN PRN Reason: Breakthrough nausea/vomiting Sodium Chloride (0.9% Saline Lock 10 Ml Syringe) 10 - 40 ml IV UD PRN PRN Reason: SALINE FLUSH Last Admin: 05/03/20 21:15 Dose: 10 ml Documented by: Tamsulosin HCl (Tamsulosin Hcl 0.4 Mg Capsule) 0.4 mg PO QHS [facility] Last Admin: 05/03/20 21:15 Dose: 0.4 mg Documented by: STROKE Vital Signs/Narrative: Vital Signs Temp Pulse Resp BP Pulse Ox 05/04/20 05:15 74 05/04/20 04:30 98.5 F 68 18 144/67 H 92 Medical Necessity - Tobacco Use Smoking Status: Never smoker Assessment/Plan All Active Problems Hyperglycemia due to diabetes mellitus (Acute) COVID-19 (Acute) Hypoxemia (Acute) Pulmonary embolism (Acute) Sepsis (Acute) History of cholecystectomy (Resolved) Shortness of breath (Acute) The patient is a 69 year old M recently diagnosed with COVID-19 who presented with progressive shortness of breath. Patient in addition did complain of headache fatigue fever and chills. Imaging studies obtained on admission demonstrated Multiple bilateral pulmonary emboli involving branches of the lower lobe pulmonary arteries as well as multiple bilateral pulmonary infiltrates 1. Acute hypoxic respiratory insufficiency ?Secondary to acute COVID-19 pneumonia with superimposed bilateral pulmonary embolism and infiltrate. Admitted to the cohort floor. Patient is on Decadron did continue in addition patient was placed on supplemental oxygen titrated to keep saturation greater than 90 with consultation placed to both pulmonary medicine as well as infectious disease - 05/04/2020. Patient was admitted to monitored bed. Was started on heparin drip discontinued due to drop in his platelet count to switch to Eliquis. Was also seen in consultation by Dr. Chowdhury with infectious disease did start patient on remdesivir. Patient oxygen requirements increasing currently on 8 L at rest 2. Acute COVID-19 pneumonitis ?Management as discussed above 3. Covid induced hypercoagulable state ?Patient presented with bilateral pulmonary embolism despite being on systemic anticoagulation with Pradaxa. Pradaxa discontinued patient started on heparin 4. Paroxysmal A. fib ?Rate controlled on systemic anticoagulation with Pradaxa which is being held in view of above 5. Diabetes mellitus type II -Controlled with hyperglycemia,patient's oral hypoglycemics held. Placed on long acting insulin, Accu-Cheks a.c. and at bedtime and covered with sliding scale insulin 6. Hypertension - Blood pressure controlled, home medications continued with dose adjustment as needed 7. Dyslipidemia -Patient is on statin therapy, continued at home dose 8. BPH ?Patient is on tamsulosin did continue 9. Morbid obesity - With a BMI of 46.2 patient was counseled on weight reduction 9. Thrombocytopenia ?Heparin drip discontinued Inpatient E&M: 98135 [facility] [[email or web address]] Hosp L3
--- NOTE | 2020-05-04 07:35 | PN_ITS ---
Patient Problems: Active and Suspected Problems Hyperglycemia due to diabetes mellitus (Acute) COVID-19 (Acute) Hypoxemia (Acute) Pulmonary embolism (Acute) Sepsis (Acute) Shortness of breath (Acute) Intraperitoneal bleeding (Suspected) Subjective: The patient was seen and examined at the bedside this morning. Events from the last 24 hours have been reviewed. The patient is currently afebrile, hemodynamically stable and maintaining appropriate oxygen saturations on 5 L/min via nasal cannula. The patient remains on remdesivir, Decadron and Eliquis. Platelet count is low this morning at 43,000. Liver and renal function are stable. The patient denies any resting shortness of breath but does report the presence of a continued nonproductive cough. Objective: The patient's most recent lab work, culture data and imaging studies have all been personally reviewed. - Physical Exam Vitals/I&O's: Vital Signs Temp Pulse Resp BP Pulse Ox 98.5 F 74 18 144/67 H 92 05/04/20 04:30 05/04/20 05:15 05/04/20 04:30 05/04/20 04:30 05/04/20 04:30 Oxygen Flow Rate (L/min) 5 Oxygen Delivery Method Nasal Cannula Weight: 252 lb 10.396 oz Body Mass Index (BMI) 40.1 Finger Stick Blood Glucose 161 Intake and Output for Last 24 Hours 05/02/20 05/03/20 05/04/20 23:59 23:59 23:59 Intake Total 727.87 / 727.87 118.23 / 118.23 Output Total 450 / 450 Balance 277.87 / 277.87 118.23 / 118.23 General: Alert, Oriented x3, Cooperative, No apparent distress HEENT: Atraumatic, PERRLA, Normocephalic Oral: Moist Mucosa, No Gingival or Mucosal Lesions/ Ulcerations Neck: Supple, No Nodes, Trachea Midline Lungs: No rhonchi, No wheeze, No rales, Diminished Cardiovascular: Regular rate, Regular Rhythm Abdomen: Bowel Sounds Present, Soft, Non Tender, Obese Extremities: No clubbing, No cyanosis, No edema Skin: No breakdown Musculoskeletal: No Tenderness to Palpation of Joints or Extremities Lymphatic: No Cervical, Supraclavicular, or Inguinal Adenopathy Neurological: Cranial nerves II-XII grossly intact, Neuro grossly intact Psych/Mental Status: Alert and oriented to time, place, person, mood and affect Labs (Last 48 Hours) 05/03/20 05/03/20 05/03/20 08:40 08:40 08:40 WBC RBC Hgb Hct MCV MCH MCHC RDW Std Deviation RDW Coeff of Taras Plt Count MPV Immature Gran % (Auto) Neut % (Auto) Lymph % (Auto) [place] % (Auto) Eos % (Auto) Baso % (Auto) Absolute Neuts (auto) Absolute Lymphs (auto) Nucleated RBC % Differential Comment Diff Path Review Platelet Estimate APTT Fibrinogen 548 H D-Dimer Quant (PE/DVT) 0.99 H* Sodium 133 L Potassium 4.2 Chloride 101 Carbon Dioxide 24.0 Anion Gap 8 BUN 19 H Creatinine 0.92 Estim Creat Clear Calc 66.46 Est GFR (MDRD) Af Amer 104 Est GFR (MDRD) Non-Af 86 BUN/Creatinine Ratio 20.6 H Glucose 312 H Lactic Acid Calcium 8.5 Phosphorus Magnesium Total Bilirubin 1.60 H AST 26 ALT 28 Alkaline Phosphatase 68 Total Creatine Kinase 81 Troponin I < 0.015 C-React Prot Ext Range 120.00 H Total Protein 6.5 Albumin 2.5 L Globulin 4.0 Albumin/Globulin Ratio 0.6 L Procalcitonin 0.29 H POC Glucose 05/03/20 05/03/20 05/03/20 08:40 08:40 08:40 WBC 8.2 RBC 4.53 L Hgb 13.6 Hct 40.0 MCV 88.3 MCH 30.0 MCHC 34.0 RDW Std Deviation 43.2 RDW Coeff of Taras 13.2 Plt Count 56 L MPV 10.9 Immature Gran % (Auto) 2.200 H Neut % (Auto) 90.7 H Lymph % (Auto) 4.6 L [place] % (Auto) 2.4 Eos % (Auto) 0.1 Baso % (Auto) 0.0 Absolute Neuts (auto) 7.4 Absolute Lymphs (auto) 0.38 L Nucleated RBC % 0 Differential Comment COMMENT Diff Path Review Platelet Estimate MOD DEC APTT 33.4 Fibrinogen D-Dimer Quant (PE/DVT) Sodium Potassium Chloride Carbon Dioxide Anion Gap BUN Creatinine Estim Creat Clear Calc Est GFR (MDRD) Af Amer Est GFR (MDRD) Non-Af BUN/Creatinine Ratio Glucose Lactic Acid 2.9 H* Calcium Phosphorus Magnesium Total Bilirubin AST ALT Alkaline Phosphatase Total Creatine Kinase Troponin I C-React Prot Ext Range Total Protein Albumin Globulin Albumin/Globulin Ratio Procalcitonin POC Glucose 05/03/20 05/03/20 05/03/20 12:26 13:23 16:42 WBC RBC Hgb Hct MCV MCH MCHC RDW Std Deviation RDW Coeff of Taras Plt Count MPV Immature Gran % (Auto) Neut % (Auto) Lymph % (Auto) [place] % (Auto) Eos % (Auto) Baso % (Auto) Absolute Neuts (auto) Absolute Lymphs (auto) Nucleated RBC % Differential Comment Diff Path Review Platelet Estimate APTT Fibrinogen D-Dimer Quant (PE/DVT) Sodium Potassium Chloride Carbon Dioxide Anion Gap BUN Creatinine Estim Creat Clear Calc Est GFR (MDRD) Af Amer Est GFR (MDRD) Non-Af BUN/Creatinine Ratio Glucose Lactic Acid 3.0 H* Calcium Phosphorus Magnesium Total Bilirubin AST ALT Alkaline Phosphatase Total Creatine Kinase Troponin I C-React Prot Ext Range Total Protein Albumin Globulin Albumin/Globulin Ratio Procalcitonin POC Glucose 260 H 283 H 05/03/20 05/03/20 05/04/20 18:58 21:12 01:06 WBC 3.5 L RBC 4.20 L Hgb 12.8 L Hct 37.1 L MCV 88.3 MCH 30.5 MCHC 34.5 RDW Std Deviation 43.0 RDW Coeff of Taras 13.3 Plt Count 43 L* MPV 11.5 Immature Gran % (Auto) 1.100 H Neut % (Auto) 88.0 H Lymph % (Auto) 8.3 L [place] % (Auto) 2.6 Eos % (Auto) 0.0 Baso % (Auto) 0.0 Absolute Neuts (auto) 3.1 Absolute Lymphs (auto) 0.29 L Nucleated RBC % 0 Differential Comment Diff Path Review May foll Platelet Estimate MKD DEC APTT 71.0 H Fibrinogen D-Dimer Quant (PE/DVT) Sodium Potassium Chloride Carbon Dioxide Anion Gap BUN Creatinine Estim Creat Clear Calc Est GFR (MDRD) Af Amer Est GFR (MDRD) Non-Af BUN/Creatinine Ratio Glucose Lactic Acid Calcium Phosphorus Magnesium Total Bilirubin AST ALT Alkaline Phosphatase Total Creatine Kinase Troponin I C-React Prot Ext Range Total Protein Albumin Globulin Albumin/Globulin Ratio Procalcitonin POC Glucose 330 H 05/04/20 05/04/20 01:06 01:06 WBC RBC Hgb Hct MCV MCH MCHC RDW Std Deviation RDW Coeff of Taras Plt Count MPV Immature Gran % (Auto) Neut % (Auto) Lymph % (Auto) [place] % (Auto) Eos % (Auto) Baso % (Auto) Absolute Neuts (auto) Absolute Lymphs (auto) Nucleated RBC % Differential Comment Diff Path Review Platelet Estimate APTT 98.5 H* Fibrinogen D-Dimer Quant (PE/DVT) Sodium 133 L Potassium 4.4 Chloride 101 Carbon Dioxide 26.0 Anion Gap 6 BUN 20 H Creatinine 0.73 Estim Creat Clear Calc 61.14 Est GFR (MDRD) Af Amer 136 Est GFR (MDRD) Non-Af 112 BUN/Creatinine Ratio 27.3 H Glucose 280 H Lactic Acid Calcium 8.5 Phosphorus 2.5 Magnesium 1.8 Total Bilirubin 1.00 AST 26 ALT 23 Alkaline Phosphatase 52 Total Creatine Kinase Troponin I C-React Prot Ext Range Total Protein 6.1 L Albumin 2.2 L Globulin 3.9 Albumin/Globulin Ratio 0.6 L Procalcitonin POC Glucose Microbiology 05/04/20 Unknown Interface Orders Legionella Antigen - Final 05/04/20 Unknown Interface Orders Streptococcus pneumoniae Antigen (M - Final 05/03/20 08:52 Mucosa - Nose SARS-CoV-2 Antigen (Rapid) - Final Clinical Impression(s) from Imaging Studies Chest X-Ray 05/03/20 08:55 IMPRESSION: Minimal increased markings at the left lung base with blunting of left costophrenic angle. There has been no change since prior study. Electronically Signed: Casimiro Marie MD at 9:09 EST , Service support , Chest CTA 05/03/20 09:36 IMPRESSION: Multiple bilateral pulmonary emboli involving branches of the lower lobe pulmonary arteries. Multiple bilateral pulmonary infiltrates as described. Splenomegaly. Electronically Signed: Casimiro Marie MD at 10:41 EST , Service support , Current Medications Acetaminophen (Acetaminophen 325 Mg Tablet) 650 mg PO Q6H PRN PRN PRN Reason: Pain Score 1-10/Temp > 100.7 F Al Hydroxide/Mg Hydroxide (Mag Hydrox/Al Hydrox/Simeth 30 Ml Udc) 30 ml PO Q6H PRN PRN PRN Reason: Gastric Burning Albuterol Sulfate (Albuterol Ih 8.5 Gm (Proair) Inhaler (200 Puffs)) 2.5 puff INHALATION Q2H PRN PRN PRN Reason: Shortness of Breath/Wheezing Apixaban (Apixaban 5 Mg Tablet) 10 mg PO BID [facility] Atenolol (Atenolol 25 Mg Tablet) 12.5 mg PO DAILY [facility] Atorvastatin Calcium (Atorvastatin Calcium 20 Mg Tablet) 20 mg PO QHS [facility] Last Admin: 05/03/20 21:15 Dose: 20 mg Documented by: Cholecalciferol (Cholecalciferol (Vit D3) 1,000 Unit (25mcg)) 1,000 unit PO BID [facility] Last Admin: 05/03/20 21:15 Dose: 1,000 unit Documented by: Cyanocobalamin (Cyanocobalamin 500 Mcg Tablet) 1,000 mcg PO DAILY [facility] Dexamethasone (Dexamethasone 4 Mg Tablet) 6 mg PO DAILY [facility] Last Admin: 05/03/20 13:20 Dose: 6 mg Documented by: Dextrose (Dextrose 50%-Water 25 Gm/50 Ml Disp.Syrin) 0 gm IV X1 PRN; Protocol PRN Reason: Hypoglycemia Finasteride (Finasteride 5 Mg Tablet) 5 mg PO DAILY [facility] Glucagon (Glucagon 1 Mg/Ml Syringe) 1 mg IM .X1 PRN PRN Reason: Hypoglycemia Hydromorphone HCl (Hydromorphone 1 Mg/Ml Syringe) 1 mg IV Q4H PRN PRN PRN Reason: Pain Score 6-10 Remdesivir 100 mg/ Sodium (Chloride) 250 mls @ 125 mls/hr IV DAILY [facility] Stop: 05/07/20 11:59 Insulin Glargine (Insulin Glargine 100 Units/Ml Pen) 25 units SC 1100,2200 [facility] Last Admin: 05/03/20 21:13 Dose: 25 units Documented by: Insulin Human Lispro (Insulin Lispro 100 Unit/Ml Insuln.Pen) 0 unit SC ACHS [facility]; Protocol Last Admin: 05/03/20 21:14 Dose: 8 units Documented by: Insulin Human Lispro (Insulin Lispro 100 Unit/Ml Insuln.Pen) 10 unit SC BREAKFAST [facility] Insulin Human Lispro (Insulin Lispro 100 Unit/Ml Insuln.Pen) 10 unit SC DINNER [facility] Last Admin: 05/03/20 16:44 Dose: 10 units Documented by: Insulin Human Lispro (Insulin Lispro 100 Unit/Ml Insuln.Pen) 10 unit SC LUNCH [facility] Last Admin: 05/03/20 12:47 Dose: 10 units Documented by: Losartan Potassium (Losartan Potassium 50 Mg Tablet) 50 mg PO DAILY [facility] Magnesium Hydroxide (Magnesium Hydroxide 30 Ml Udc) 30 ml PO DAILY PRN PRN PRN Reason: Constipation Melatonin (Melatonin 3 Mg Tablet) 3 mg PO QHS PRN PRN PRN Reason: INSOMNIA Last Admin: 05/03/20 21:15 Dose: 3 mg Documented by: Nitroglycerin (Nitroglycerin (Inpatient Use) 0.4 Mg Tab.Subl) 0.4 mg SUBLINGUAL Q5M PRN PRN Reason: CARDIAC/CHEST PAIN Ondansetron HCl (Ondansetron 4 Mg/2 Ml Vial) 4 mg IV Q8H PRN PRN PRN Reason: NAUSEA/VOMITING Oxycodone HCl (Oxycodone 5 Mg Tablet) 10 mg PO Q4H PRN PRN PRN Reason: Pain Score 4-5 Prochlorperazine Edisylate (Prochlorperazine 10 Mg/2 Ml Vial) 5 mg IV Q4H PRN PRN PRN Reason: Breakthrough nausea/vomiting Sodium Chloride (0.9% Saline Lock 10 Ml Syringe) 10 - 40 ml IV UD PRN PRN Reason: SALINE FLUSH Last Admin: 05/03/20 21:15 Dose: 10 ml Documented by: Tamsulosin HCl (Tamsulosin Hcl 0.4 Mg Capsule) 0.4 mg PO QHS [facility] Last Admin: 05/03/20 21:15 Dose: 0.4 mg Documented by: Medical Necessity - Tobacco Use Smoking Status: Never smoker Assessment/Plan All Active Problems Hyperglycemia due to diabetes mellitus (Acute) COVID-19 (Acute) Hypoxemia (Acute) Pulmonary embolism (Acute) Sepsis (Acute) History of cholecystectomy (Resolved) Shortness of breath (Acute) RECOMMENDATIONS: 1. Wean supplemental oxygen to maintain saturations at or above 90%. 2. Continue Decadron with plans to complete a 10-day treatment course. 3. Continue remdesivir to complete treatment course. Monitor liver and renal f unction accordingly. 4. Discontinue Pradaxa completely at discharge. Agree with transition to Eliquis. 5. Encourage incentive spirometer use and mobilize patient as tolerated. IMPRESSIONS: 1. Acute hypoxemic respiratory failure secondary to COVID-19 pneumonia and bilateral pulmonary emboli At this time, the patient is relatively stable from an oxygenation status. Agree with continuing current supportive measures, including Decadron with plans to complete a 10-day treatment course. In addition, I would recommend that remdesivir also be continued. Given the patient's pulmonary emboli, plan to continue systemic anticoagulation with Eliquis. Plan to wean supplemental oxygen to maintain saturations at or above 90%. 2. Diabetes mellitus/hypertension/hyperlipidemia/BPH/obesity/paroxysmal atrial fibrillation Complicates care, management, recovery and prognosis. Recommend complete discontinuation of Pradaxa given high risk for bleeding complications. Continue home medications as indicated. This note was generated with [employer] dictation software. It may contain incorrect words, spelling, and punctuation that were not noted in checking the note before signing. Inpatient E&M: 00022 Subs Hosp L2
[2020-05-04 08:46] LABS: Bedside Glucose 295 mg/dL (70-110)
[2020-05-04] MEDS: Insulin Lispro 100 UNIT/ML INSULN.PEN 10 UNIT SC ×2 (08:58→11:28)
[2020-05-04] MEDS: Insulin Lispro 100 UNIT/ML INSULN.PEN SC ×4 (09:02→21:20)
[2020-05-04] MEDS: dexAMETHasone 4 MG Tablet 6 MG PO (09:03)
[2020-05-04] MEDS: Cyanocobalamin 500 MCG Tablet 1000 MCG PO ×2 (09:03→09:06)
[2020-05-04 09:04] LABS: Partial Thromboplast Time 71.8 Seconds (24.1-36.2)
[2020-05-04] MEDS: Atenolol 25 MG Tablet 12.5 MG PO (09:05)
[2020-05-04] MEDS: Finasteride 5 MG Tablet PO (09:06)
[2020-05-04] MEDS: APIXABAN 5 MG TABLET 10 MG PO ×2 (09:07→21:19)
[2020-05-04] MEDS: Losartan Potassium 50 MG Tablet PO (09:10)
[2020-05-04] MEDS: 0.9% Saline Lock 10 ML Syringe IV ×3 (09:11→16:34)
--- NOTE | 2020-05-04 10:39 | CASEMGMT ---
Addendum entered by Saurabh Grant 05/04/20 11:41: Call received from Dr. Payne's office. new patient appointment made for Sunday, September 17 @ 8:30 am. Appointment placed on DC appointment list. Original Note: RN CM Assessment Note Introduced role of CM to patient. Demographics, PCP verified. Patient is awake and alert and able to participate in assessment. Pt states he lives at home independently. 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 - is home, has mild symptoms but has not been tested. -Pt is able to quarantine @ home and has family/friends to bring supplies if needed. 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 WOLFGANG DIAZ will assist with this. COVID TESTING: @ Dr. Waller's office Presentation: worsening covid-19 symptoms with progressive shortness of breath Diagnosis: COVID-19 PCP: Dr. Waller Specialists: Pt has not seen cardiology since Dr. Guthrie retired. Call to [facility] and schedule will speak with cardiology for [place] and call patient with an appointment. [facility] endocrinology does not have appts until summer. Message also left with Dr. Payne's office for new patient appointment- awaiting call back Insurance: MCR/[employer] Preferred Pharmacy: [facility] Prescription Benefit: yes LNOK: , Louise Jason Living Arrangements: Lives independently with his . Tranportation: drives DME: Has Cpap nebulizer and blood glucose monitor. No other DME. Reviewed list of DME providers in are for patient including [facility] [place], [facility] [place] [facility] and [facility]. Pt does not have a preference. Will use [facility] if home oxygen is needed. HHC: none SNF: none Patient DC Goals: Home DC Plan: home. Patient may need home oxygen on dc. Awaiting call from Dr. Payne's office re: new patient appointment CM available for discharge planning coordination. Contact CM for any concerns/needs that may arise. Ralph ARCE RN ACM
[2020-05-04 11:40] LABS: Bedside Glucose 424 mg/dL (70-110)
[2020-05-04 12:46] LABS: Pathologist Review Reviewed
[2020-05-04] MEDS: Insulin Lispro 100 UNIT/ML INSULN.PEN 15 UNIT SC (16:36)
[2020-05-04 17:55] LABS: Bedside Glucose 354 mg/dL (70-110)
[2020-05-04] MEDS: MELATONIN 3 MG TABLET PO (21:19)
[2020-05-04] MEDS: Atorvastatin Calcium 20 MG Tablet PO (21:19)
[2020-05-04] MEDS: Tamsulosin HCl 0.4 MG Capsule PO (21:19)
[2020-05-04] MEDS: Acetaminophen 325 MG Tablet 650 MG PO (21:22)
[2020-05-04 22:35] LABS: Bedside Glucose 364 mg/dL (70-110)
[2020-05-05] VITALS (14 sets, daily range): BP systolic 118–132; BP diastolic 59–69; PULSE 58–75; RESP 18; TEMP 36.1–36.6; O2SAT 89–93
[2020-05-05 06:52] LABS: Absolute Lymphocyte Count 0.36 X10^3/uL (0.83-4.51); Absolute Neutrophil Count 3.1 X10^3/uL (2.0-7.7); Lymphocyte # 0.36 X10^3/ul (4.0); Lymphocyte % 9.9 % (19-41); Mean Corp Hgb Conc 33.3 g/dL (32-36); Mean Corpuscular Hgb 29.6 pg (27.0-32.0); Mean Corpuscular Volume 88.8 fL (80-94); Mean Platelet Vol. 11.6 fl (6.2-12.0); Monocyte% 5.5 % (0-10); NRBC Flagged by Analyzer 0 % (0-5); Neutrophil # 3.06 X10^3/uL (2.7-7.7); Neutrophil % 84.1 % (47-70); POSITIVE COUNT YES; POSITIVE DIFFERENTIAL YES; POSITIVE MORPHOLOGY YES; Platelet Count 63 K/mm3 (150-450); RBC Distribution Width CV 13.2 % (11.6-14.6); RBC Distribution Width SD 43.5 fl (35.1-43.9); Red Blood Count 4.39 M/mm3 (4.6-6.2); White Blood Count 3.6 K/mm3 (4.4-11.0)
[2020-05-05 06:55] LABS: Differential Indicated SCAN CRITERIA MET
[2020-05-05 07:10] LABS: Platelet Estimate SLT DEC (ADEQ)
[2020-05-05 07:22] LABS: ALB/GLOB Ratio 0.5 RATIO (0.9-2.4); AST(SGOT) 33 U/L (15-37); Alanine Aminotransfer ALT/SGPT 28 U/L (16-61); Albumin, Serum 2.1 g/dL (3.2-5.0); Alkaline Phosphatase 62 U/L (45-117); Anion Gap 4 (5-15); BUN 26 mg/dL (7-18); BUN/Creat Ratio 37.6 RATIO (10-20); Calcium,Total 8.3 mg/dL (8.5-10.1); Chloride 103 mmol/L (98-107); Creatinine, Serum 0.69 mg/dL (0.70-1.30); EST Glomerular Filtration Rate 120 mL/min (>60); Est Glom Filt Rate - Afr Amer 145 mL/min (>60); Estimated Creatinine Clearance 61.14 ml/min; Globulin 3.9 g/dL (2.2-4.2); Glucose 253 mg/dL (74-106); Potassium 4.2 mmol/L (3.5-5.1); Sodium Level 135 mmol/L (136-145)
--- NOTE | 2020-05-05 07:29 | PN_ITS ---
Patient Problems: Active and Suspected Problems Hyperglycemia due to diabetes mellitus (Acute) COVID-19 (Acute) Hypoxemia (Acute) Pulmonary embolism (Acute) Sepsis (Acute) Shortness of breath (Acute) Intraperitoneal bleeding (Suspected) Reason for Visit: Acute hypoxic respiratory failure Bilateral multiple PEs Acute COVID-19 pneumonitis Subjective: Seen remains on high flow oxygen. Lasix added to patient's therapy. Objective: GENERAL: cooperative HEENT: Atraumatic; EYES; Anicteric, Normal Conjunctiva NECK; supple, normal thyroid, RESPIRATORY: Diminished to auscultation CARDIOVASCULAR: Regular S1 S2, GI: soft, normoactive bowel sounds, : No Renal angle tenderness; EXTREMITIES: No edema, no clubbing, MUSCULOSKELETAL: no muscle waisting NEURO: Awake; no lateralizing signs. SKIN: No Rash PSYCH; Flat affect Vitals/I&O's: Vital Signs Temp Pulse Resp BP Pulse Ox 97.5 F L 60 18 118/60 91 05/05/20 05:09 05/05/20 05:09 05/05/20 05:09 05/05/20 05:09 05/05/20 05:53 Oxygen Flow Rate (L/min) 13 Oxygen Delivery Method Nasal Cannula Weight: 114.6 kg Body Mass Index (BMI) 40.1 Finger Stick Blood Glucose 161 Intake and Output for Last 24 Hours 05/03/20 05/04/20 05/05/20 23:59 23:59 23:59 Intake Total 727.87 / 727.87 1476.48 / 1476.48 300 / 300 Output Total 450 / 450 325 / 325 Balance 277.87 / 277.87 1476.48 / 1476.48 -25 / -25 Microbiology Past 72 Hours 05/03/20 08:45 Blood Culture (Wb) - Anticubital Left Bacteria Detection (PCR) - Preliminary Staphylococcus epidermidis 05/03/20 08:45 Blood Culture (Wb) - Left Hand Blood Culture - Preliminary 05/04/20 10:15 Sputum, Expectorated/Coughed Gram Stain - Final 05/04/20 Unknown Interface Orders Legionella Antigen - Final 05/04/20 Unknown Interface Orders Streptococcus pneumoniae Antigen (M - Final 05/03/20 08:52 Mucosa - Nose SARS-CoV-2 Antigen (Rapid) - Final Laboratory Results 05/04/20 01:06: Diff Path Review Reviewed 05/04/20 08:33: POC Glucose 295 H 05/04/20 08:43: APTT 71.8 H 05/04/20 11:27: POC Glucose 424 H 05/04/20 16:25: POC Glucose 354 H 05/04/20 21:16: POC Glucose 364 H 05/05/20 06:15: WBC 3.6 L, RBC 4.39 L, Hgb 13.0, Hct 39.0 L, MCV 88.8, MCH 29.6, MCHC 33.3, RDW Std Deviation 43.5, RDW Coeff of Taras 13.2, Plt Count 63 L, MPV 11.6, Immature Gran % (Auto) 0.500, Neut % (Auto) 84.1 H, Lymph % (Auto) 9.9 L, [place] % (Auto) 5.5, Eos % (Auto) 0.0, Baso % (Auto) 0.0, Absolute Neuts (auto) 3.1, Absolute Lymphs (auto) 0.36 L, Nucleated RBC % 0, Diff Path Review August, Platelet Estimate SLT 05/05/20 06:15: Sodium 135 L, Potassium 4.2, Chloride 103, Carbon Dioxide 28.0, Anion Gap 4 L, BUN 26 H, Creatinine 0.69 L, Estim Creat Clear Calc 61.14, Est GFR (MDRD) Af Amer 145, Est GFR (MDRD) Non-Af 120, BUN/Creatinine Ratio 37.6 H, Glucose 253 H, Calcium 8.3 L, Total Bilirubin 1.00, AST 33, ALT 28, Alkaline Phosphatase 62, Total Protein 6.0 L, Albumin 2.1 L, Globulin 3.9, Albumin/Globulin Ratio 0.5 L Current Medications Acetaminophen (Acetaminophen 325 Mg Tablet) 650 mg PO Q6H PRN PRN PRN Reason: Pain Score 1-10/Temp > 100.7 F Last Admin: 05/04/20 21:22 Dose: 650 mg Documented by: Al Hydroxide/Mg Hydroxide (Mag Hydrox/Al Hydrox/Simeth 30 Ml Udc) 30 ml PO Q6H PRN PRN PRN Reason: Gastric Burning Albuterol Sulfate (Albuterol Ih 8.5 Gm (Proair) Inhaler (200 Puffs)) 2.5 puff INHALATION Q2H PRN PRN PRN Reason: Shortness of Breath/Wheezing Last Admin: 05/04/20 09:21 Dose: 2.5 puff Documented by: Apixaban (Apixaban 5 Mg Tablet) 10 mg PO BID [facility] Last Admin: 05/04/20 21:19 Dose: 10 mg Documented by: Atenolol (Atenolol 25 Mg Tablet) 12.5 mg PO DAILY [facility] Last Admin: 05/04/20 09:05 Dose: 12.5 mg Documented by: Atorvastatin Calcium (Atorvastatin Calcium 20 Mg Tablet) 20 mg PO QHS [facility] Last Admin: 05/04/20 21:19 Dose: 20 mg Documented by: Cholecalciferol (Cholecalciferol (Vit D3) 1,000 Unit (25mcg)) 1,000 unit PO BID [facility] Last Admin: 05/04/20 21:19 Dose: 1,000 unit Documented by: Cyanocobalamin (Cyanocobalamin 500 Mcg Tablet) 1,000 mcg PO DAILY [facility] Last Admin: 05/04/20 09:06 Dose: 1,000 mcg Documented by: Dexamethasone (Dexamethasone 4 Mg Tablet) 6 mg PO DAILY [facility] Last Admin: 05/04/20 09:03 Dose: 6 mg Documented by: Dextrose (Dextrose 50%-Water 25 Gm/50 Ml Disp.Syrin) 0 gm IV X1 PRN; Protocol PRN Reason: Hypoglycemia Finasteride (Finasteride 5 Mg Tablet) 5 mg PO DAILY [facility] Last Admin: 05/04/20 09:06 Dose: 5 mg Documented by: Glucagon (Glucagon 1 Mg/Ml Syringe) 1 mg IM .X1 PRN PRN Reason: Hypoglycemia Hydromorphone HCl (Hydromorphone 1 Mg/Ml Syringe) 1 mg IV Q4H PRN PRN PRN Reason: Pain Score 6-10 Remdesivir 100 mg/ Sodium (Chloride) 250 mls @ 125 mls/hr IV DAILY [facility] Stop: 05/07/20 11:59 Last Infusion: 05/04/20 13:30 Dose: Infused Documented by: Sodium Chloride () 250 mls @ 15 mls/hr IV .[id number] PRN PRN Reason: Saline Flush Last Infusion: 05/04/20 15:30 Dose: 0 mls/hr Documented by: Sodium Chloride () 250 mls @ 15 mls/hr IV .[id number] PRN PRN Reason: Additional IVPB Infusion Insulin Glargine (Insulin Glargine 100 Units/Ml Pen) 50 units SC 1100,2200 [facility] Insulin Human Lispro (Insulin Lispro 100 Unit/Ml Insuln.Pen) 0 unit SC ACHS [facility]; Protocol Last Admin: 05/04/20 21:20 Dose: 8 units Documented by: Insulin Human Lispro (Insulin Lispro 100 Unit/Ml Insuln.Pen) 20 unit SC BREAKFAST [facility] Insulin Human Lispro (Insulin Lispro 100 Unit/Ml Insuln.Pen) 20 unit SC DINNER [facility] Insulin Human Lispro (Insulin Lispro 100 Unit/Ml Insuln.Pen) 20 unit SC LUNCH [facility] Losartan Potassium (Losartan Potassium 50 Mg Tablet) 50 mg PO DAILY [facility] Last Admin: 05/04/20 09:10 Dose: 50 mg Documented by: Magnesium Hydroxide (Magnesium Hydroxide 30 Ml Udc) 30 ml PO DAILY PRN PRN PRN Reason: Constipation Melatonin (Melatonin 3 Mg Tablet) 3 mg PO QHS PRN PRN PRN Reason: INSOMNIA Last Admin: 05/04/20 21:19 Dose: 3 mg Documented by: Nitroglycerin (Nitroglycerin (Inpatient Use) 0.4 Mg Tab.Subl) 0.4 mg SUBLINGUAL Q5M PRN PRN Reason: CARDIAC/CHEST PAIN Ondansetron HCl (Ondansetron 4 Mg/2 Ml Vial) 4 mg IV Q8H PRN PRN PRN Reason: NAUSEA/VOMITING Oxycodone HCl (Oxycodone 5 Mg Tablet) 10 mg PO Q4H PRN PRN PRN Reason: Pain Score 4-5 Prochlorperazine Edisylate (Prochlorperazine 10 Mg/2 Ml Vial) 5 mg IV Q4H PRN PRN PRN Reason: Breakthrough nausea/vomiting Sodium Chloride (0.9% Saline Lock 10 Ml Syringe) 10 - 40 ml IV UD PRN PRN Reason: SALINE FLUSH Last Admin: 05/04/20 16:34 Dose: 10 ml Documented by: Tamsulosin HCl (Tamsulosin Hcl 0.4 Mg Capsule) 0.4 mg PO QHS [facility] Last Admin: 05/04/20 21:19 Dose: 0.4 mg Documented by: STROKE Vital Signs/Narrative: Vital Signs Temp Pulse Resp BP Pulse Ox 05/05/20 05:53 91 05/05/20 05:09 97.5 F L 60 18 118/60 92 05/05/20 04:03 61 Medical Necessity - Tobacco Use Smoking Status: Never smoker Assessment/Plan All Active Problems Hyperglycemia due to diabetes mellitus (Acute) COVID-19 (Acute) Hypoxemia (Acute) Pulmonary embolism (Acute) Sepsis (Acute) History of cholecystectomy (Resolved) Shortness of breath (Acute) The patient is a 69 year old M recently diagnosed with COVID-19 who presented with progressive shortness of breath. Patient in addition did complain of headache fatigue fever and chills. Imaging studies obtained on admission demonstrated Multiple bilateral pulmonary emboli involving branches of the lower lobe pulmonary arteries as well as multiple bilateral pulmonary infiltrates 1. Acute hypoxic respiratory failure ?Secondary to acute COVID-19 pneumonia with superimposed bilateral pulmonary embolism and infiltrate. Admitted to the cohort floor. Patient is on Decadron did continue in addition patient was placed on supplemental oxygen titrated to keep saturation greater than 90 with consultation placed to both pulmonary medicine as well as infectious disease - 05/04/2020. Patient was admitted to monitored bed. Was started on heparin drip discontinued due to drop in his platelet count to switch to Eliquis. Was also seen in consultation by Dr. Chowdhury with infectious disease did start patient on remdesivir. Patient oxygen requirements increasing currently on 8 L at rest ?05/05/2020; patient seen still requires high flow oxygen 2. Acute COVID-19 pneumonitis ?Management as discussed above 3. Covid induced hypercoagulable state ?Patient presented with bilateral pulmonary embolism despite being on systemic anticoagulation with Pradaxa. Pradaxa discontinued patient started on heparin 4. Paroxysmal A. fib ?Rate controlled on systemic anticoagulation with Pradaxa which is being held in view of above 5. Diabetes mellitus type II -Controlled with hyperglycemia,patient's oral hypoglycemics held. Placed on long acting insulin, Accu-Cheks a.c. and at bedtime and covered with sliding scale insulin 6. Hypertension - Blood pressure controlled, home medications continued with dose adjustment as needed 7. Dyslipidemia -Patient is on statin therapy, continued at home dose 8. BPH ?Patient is on tamsulosin did continue 9. Morbid obesity - With a BMI of 46.2 patient was counseled on weight reduction 10. Thrombocytopenia ?Heparin drip discontinued Inpatient E&M: [id number] [facility] L2
--- NOTE | 2020-05-05 07:30 | PCM.PN.PUL ---
Patient Problems: Active and Suspected Problems Hyperglycemia due to diabetes mellitus (Acute) COVID-19 (Acute) Hypoxemia (Acute) Pulmonary embolism (Acute) Sepsis (Acute) Shortness of breath (Acute) Intraperitoneal bleeding (Suspected) Subjective: The patient was seen and examined at the bedside this morning. Events from the last 24 hours have been reviewed. The patient is currently afebrile, hemodynamically stable and maintaining appropriate oxygen saturations on 13 L/min via nasal cannula. The patient remains on remdesivir, Decadron and Eliquis. Liver and renal function are stable. Platelet count is improved to 63,000 this morning. Objective: The patient's most recent lab work, culture data and imaging studies have all been personally reviewed. Sputum culture was positive for possible Haemophilus and group B streptococcus. - Physical Exam Vitals/I&O's: Vital Signs Temp Pulse Resp BP Pulse Ox 97.5 F L 60 18 118/60 91 05/05/20 05:09 05/05/20 05:09 05/05/20 05:09 05/05/20 05:09 05/05/20 05:53 Oxygen Flow Rate (L/min) 13 Oxygen Delivery Method Nasal Cannula Weight: 252 lb 10.396 oz Body Mass Index (BMI) 40.1 Finger Stick Blood Glucose 161 Intake and Output for Last 24 Hours 05/03/20 05/04/20 05/05/20 23:59 23:59 23:59 Intake Total 727.87 / 727.87 1476.48 / 1476.48 300 / 300 Output Total 450 / 450 325 / 325 Balance 277.87 / 277.87 1476.48 / 1476.48 -25 / -25 General: Alert, Cooperative HEENT: Atraumatic, Normocephalic Oral: Moist Mucosa, No Gingival or Mucosal Lesions/ Ulcerations Neck: Supple, No Nodes, Trachea Midline Lungs: Diminished Cardiovascular: Regular rate, Regular Rhythm, Normal S1, Normal S2, No murmurs Abdomen: Bowel Sounds Present, Soft, Non Tender, Obese Extremities: No clubbing, No cyanosis, No edema Skin: No breakdown Musculoskeletal: No Tenderness to Palpation of Joints or Extremities Lymphatic: No Cervical, Supraclavicular, or Inguinal Adenopathy Neurological: Cranial nerves II-XII grossly intact, Neuro grossly intact Psych/Mental Status: Alert and oriented to time, place, person, mood and affect Labs (Last 48 Hours) 05/03/20 05/03/20 05/03/20 08:40 08:40 08:40 WBC RBC Hgb Hct MCV MCH MCHC RDW Std Deviation RDW Coeff of Taras Plt Count MPV Immature Gran % (Auto) Neut % (Auto) Lymph % (Auto) [place] % (Auto) Eos % (Auto) Baso % (Auto) Absolute Neuts (auto) Absolute Lymphs (auto) Nucleated RBC % Differential Comment Diff Path Review Platelet Estimate APTT Fibrinogen 548 H D-Dimer Quant (PE/DVT) 0.99 H* Sodium 133 L Potassium 4.2 Chloride 101 Carbon Dioxide 24.0 Anion Gap 8 BUN 19 H Creatinine 0.92 Estim Creat Clear Calc 66.46 Est GFR (MDRD) Af Amer 104 Est GFR (MDRD) Non-Af 86 BUN/Creatinine Ratio 20.6 H Glucose 312 H Lactic Acid Calcium 8.5 Phosphorus Magnesium Total Bilirubin 1.60 H AST 26 ALT 28 Alkaline Phosphatase 68 Total Creatine Kinase 81 Troponin I < 0.015 C-React Prot Ext Range 120.00 H Total Protein 6.5 Albumin 2.5 L Globulin 4.0 Albumin/Globulin Ratio 0.6 L Procalcitonin 0.29 H POC Glucose 05/03/20 05/03/20 05/03/20 08:40 08:40 08:40 WBC 8.2 RBC 4.53 L Hgb 13.6 Hct 40.0 MCV 88.3 MCH 30.0 MCHC 34.0 RDW Std Deviation 43.2 RDW Coeff of Taras 13.2 Plt Count 56 L MPV 10.9 Immature Gran % (Auto) 2.200 H Neut % (Auto) 90.7 H Lymph % (Auto) 4.6 L [place] % (Auto) 2.4 Eos % (Auto) 0.1 Baso % (Auto) 0.0 Absolute Neuts (auto) 7.4 Absolute Lymphs (auto) 0.38 L Nucleated RBC % 0 Differential Comment COMMENT Diff Path Review Platelet Estimate MOD DEC APTT 33.4 Fibrinogen D-Dimer Quant (PE/DVT) Sodium Potassium Chloride Carbon Dioxide Anion Gap BUN Creatinine Estim Creat Clear Calc Est GFR (MDRD) Af Amer Est GFR (MDRD) Non-Af BUN/Creatinine Ratio Glucose Lactic Acid 2.9 H* Calcium Phosphorus Magnesium Total Bilirubin AST ALT Alkaline Phosphatase Total Creatine Kinase Troponin I C-React Prot Ext Range Total Protein Albumin Globulin Albumin/Globulin Ratio Procalcitonin POC Glucose 05/03/20 05/03/20 05/03/20 12:26 13:23 16:42 WBC RBC Hgb Hct MCV MCH MCHC RDW Std Deviation RDW Coeff of Taras Plt Count MPV Immature Gran % (Auto) Neut % (Auto) Lymph % (Auto) [place] % (Auto) Eos % (Auto) Baso % (Auto) Absolute Neuts (auto) Absolute Lymphs (auto) Nucleated RBC % Differential Comment Diff Path Review Platelet Estimate APTT Fibrinogen D-Dimer Quant (PE/DVT) Sodium Potassium Chloride Carbon Dioxide Anion Gap BUN Creatinine Estim Creat Clear Calc Est GFR (MDRD) Af Amer Est GFR (MDRD) Non-Af BUN/Creatinine Ratio Glucose Lactic Acid 3.0 H* Calcium Phosphorus Magnesium Total Bilirubin AST ALT Alkaline Phosphatase Total Creatine Kinase Troponin I C-React Prot Ext Range Total Protein Albumin Globulin Albumin/Globulin Ratio Procalcitonin POC Glucose 260 H 283 H 05/03/20 05/03/20 05/04/20 18:58 21:12 01:06 WBC 3.5 L RBC 4.20 L Hgb 12.8 L Hct 37.1 L MCV 88.3 MCH 30.5 MCHC 34.5 RDW Std Deviation 43.0 RDW Coeff of Taras 13.3 Plt Count 43 L* MPV 11.5 Immature Gran % (Auto) 1.100 H Neut % (Auto) 88.0 H Lymph % (Auto) 8.3 L [place] % (Auto) 2.6 Eos % (Auto) 0.0 Baso % (Auto) 0.0 Absolute Neuts (auto) 3.1 Absolute Lymphs (auto) 0.29 L Nucleated RBC % 0 Differential Comment Diff Path Review Reviewed Platelet Estimate MKD DEC APTT 71.0 H Fibrinogen D-Dimer Quant (PE/DVT) Sodium Potassium Chloride Carbon Dioxide Anion Gap BUN Creatinine Estim Creat Clear Calc Est GFR (MDRD) Af Amer Est GFR (MDRD) Non-Af BUN/Creatinine Ratio Glucose Lactic Acid Calcium Phosphorus Magnesium Total Bilirubin AST ALT Alkaline Phosphatase Total Creatine Kinase Troponin I C-React Prot Ext Range Total Protein Albumin Globulin Albumin/Globulin Ratio Procalcitonin POC Glucose 330 H 01/26/21 01/26/21 01/26/21 01:06 01:06 08:33 WBC RBC Hgb Hct MCV MCH MCHC RDW Std Deviation RDW Coeff of Taras Plt Count MPV Immature Gran % (Auto) Neut % (Auto) Lymph % (Auto) [place] % (Auto) Eos % (Auto) Baso % (Auto) Absolute Neuts (auto) Absolute Lymphs (auto) Nucleated RBC % Differential Comment Diff Path Review Platelet Estimate APTT 98.5 H* Fibrinogen D-Dimer Quant (PE/DVT) Sodium 133 L Potassium 4.4 Chloride 101 Carbon Dioxide 26.0 Anion Gap 6 BUN 20 H Creatinine 0.73 Estim Creat Clear Calc 61.14 Est GFR (MDRD) Af Amer 136 Est GFR (MDRD) Non-Af 112 BUN/Creatinine Ratio 27.3 H Glucose 280 H Lactic Acid Calcium 8.5 Phosphorus 2.5 Magnesium 1.8 Total Bilirubin 1.00 AST 26 ALT 23 Alkaline Phosphatase 52 Total Creatine Kinase Troponin I C-React Prot Ext Range Total Protein 6.1 L Albumin 2.2 L Globulin 3.9 Albumin/Globulin Ratio 0.6 L Procalcitonin POC Glucose 295 H 05/04/20 05/04/20 05/04/20 08:43 11:27 16:25 WBC RBC Hgb Hct MCV MCH MCHC RDW Std Deviation RDW Coeff of Taras Plt Count MPV Immature Gran % (Auto) Neut % (Auto) Lymph % (Auto) [place] % (Auto) Eos % (Auto) Baso % (Auto) Absolute Neuts (auto) Absolute Lymphs (auto) Nucleated RBC % Differential Comment Diff Path Review Platelet Estimate APTT 71.8 H Fibrinogen D-Dimer Quant (PE/DVT) Sodium Potassium Chloride Carbon Dioxide Anion Gap BUN Creatinine Estim Creat Clear Calc Est GFR (MDRD) Af Amer Est GFR (MDRD) Non-Af BUN/Creatinine Ratio Glucose Lactic Acid Calcium Phosphorus Magnesium Total Bilirubin AST ALT Alkaline Phosphatase Total Creatine Kinase Troponin I C-React Prot Ext Range Total Protein Albumin Globulin Albumin/Globulin Ratio Procalcitonin POC Glucose 424 H 354 H 05/04/20 05/05/20 05/05/20 21:16 06:15 06:15 WBC 3.6 L RBC 4.39 L Hgb 13.0 Hct 39.0 L MCV 88.8 MCH 29.6 MCHC 33.3 RDW Std Deviation 43.5 RDW Coeff of Taras 13.2 Plt Count 63 L MPV 11.6 Immature Gran % (Auto) 0.500 Neut % (Auto) 84.1 H Lymph % (Auto) 9.9 L [place] % (Auto) 5.5 Eos % (Auto) 0.0 Baso % (Auto) 0.0 Absolute Neuts (auto) 3.1 Absolute Lymphs (auto) 0.36 L Nucleated RBC % 0 Differential Comment Diff Path Review May foll Platelet Estimate SLT DEC APTT Fibrinogen D-Dimer Quant (PE/DVT) Sodium 135 L Potassium 4.2 Chloride 103 Carbon Dioxide 28.0 Anion Gap 4 L BUN 26 H Creatinine 0.69 L Estim Creat Clear Calc 61.14 Est GFR (MDRD) Af Amer 145 Est GFR (MDRD) Non-Af 120 BUN/Creatinine Ratio 37.6 H Glucose 253 H Lactic Acid Calcium 8.3 L Phosphorus Magnesium Total Bilirubin 1.00 AST 33 ALT 28 Alkaline Phosphatase 62 Total Creatine Kinase Troponin I C-React Prot Ext Range Total Protein 6.0 L Albumin 2.1 L Globulin 3.9 Albumin/Globulin Ratio 0.5 L Procalcitonin POC Glucose 364 H Microbiology 05/03/20 08:45 Blood Culture (Wb) - Anticubital Left Bacteria Detection (PCR) - Preliminary Staphylococcus epidermidis 05/03/20 08:45 Blood Culture (Wb) - Left Hand Blood Culture - Preliminary 05/04/20 10:15 Sputum, Expectorated/Coughed Gram Stain - Final 05/04/20 Unknown Interface Orders Legionella Antigen - Final 05/04/20 Unknown Interface Orders Streptococcus pneumoniae Antigen (M - Final 05/03/20 08:52 Mucosa - Nose SARS-CoV-2 Antigen (Rapid) - Final Clinical Impression(s) from Imaging Studies Chest X-Ray 05/03/20 08:55 IMPRESSION: Minimal increased markings at the left lung base with blunting of left costophrenic angle. There has been no change since prior study. Electronically Signed: Casimiro Marie MD at 9:09 EST , Service support , Chest CTA 05/03/20 09:36 IMPRESSION: Multiple bilateral pulmonary emboli involving branches of the lower lobe pulmonary arteries. Multiple bilateral pulmonary infiltrates as described. Splenomegaly. Electronically Signed: Casimiro Marie MD at 10:41 EST , Service support , Current Medications Acetaminophen (Acetaminophen 325 Mg Tablet) 650 mg PO Q6H PRN PRN PRN Reason: Pain Score 1-10/Temp > 100.7 F Last Admin: 05/04/20 21:22 Dose: 650 mg Documented by: Al Hydroxide/Mg Hydroxide (Mag Hydrox/Al Hydrox/Simeth 30 Ml Udc) 30 ml PO Q6H PRN PRN PRN Reason: Gastric Burning Albuterol Sulfate (Albuterol Ih 8.5 Gm (Proair) Inhaler (200 Puffs)) 2.5 puff INHALATION Q2H PRN PRN PRN Reason: Shortness of Breath/Wheezing Last Admin: 05/04/20 09:21 Dose: 2.5 puff Documented by: Apixaban (Apixaban 5 Mg Tablet) 10 mg PO BID [facility] Last Admin: 05/04/20 21:19 Dose: 10 mg Documented by: Atenolol (Atenolol 25 Mg Tablet) 12.5 mg PO DAILY [facility] Last Admin: 05/04/20 09:05 Dose: 12.5 mg Documented by: Atorvastatin Calcium (Atorvastatin Calcium 20 Mg Tablet) 20 mg PO QHS [facility] Last Admin: 05/04/20 21:19 Dose: 20 mg Documented by: Cholecalciferol (Cholecalciferol (Vit D3) 1,000 Unit (25mcg)) 1,000 unit PO BID [facility] Last Admin: 05/04/20 21:19 Dose: 1,000 unit Documented by: Cyanocobalamin (Cyanocobalamin 500 Mcg Tablet) 1,000 mcg PO DAILY [facility] Last Admin: 05/04/20 09:06 Dose: 1,000 mcg Documented by: Dexamethasone (Dexamethasone 4 Mg Tablet) 6 mg PO DAILY [facility] Last Admin: 05/04/20 09:03 Dose: 6 mg Documented by: Dextrose (Dextrose 50%-Water 25 Gm/50 Ml Disp.Syrin) 0 gm IV X1 PRN; Protocol PRN Reason: Hypoglycemia Finasteride (Finasteride 5 Mg Tablet) 5 mg PO DAILY [facility] Last Admin: 05/04/20 09:06 Dose: 5 mg Documented by: Glucagon (Glucagon 1 Mg/Ml Syringe) 1 mg IM .X1 PRN PRN Reason: Hypoglycemia Hydromorphone HCl (Hydromorphone 1 Mg/Ml Syringe) 1 mg IV Q4H PRN PRN PRN Reason: Pain Score 6-10 Remdesivir 100 mg/ Sodium (Chloride) 250 mls @ 125 mls/hr IV DAILY [facility] Stop: 05/07/20 11:59 Last Infusion: 05/04/20 13:30 Dose: Infused Documented by: Sodium Chloride () 250 mls @ 15 mls/hr IV .[id number] PRN PRN Reason: Saline Flush Last Infusion: 05/04/20 15:30 Dose: 0 mls/hr Documented by: Sodium Chloride () 250 mls @ 15 mls/hr IV .[id number] PRN PRN Reason: Additional IVPB Infusion Insulin Glargine (Insulin Glargine 100 Units/Ml Pen) 50 units SC 1100,2200 [facility] Insulin Human Lispro (Insulin Lispro 100 Unit/Ml Insuln.Pen) 0 unit SC ACHS [facility]; Protocol Last Admin: 05/04/20 21:20 Dose: 8 units Documented by: Insulin Human Lispro (Insulin Lispro 100 Unit/Ml Insuln.Pen) 20 unit SC BREAKFAST [facility] Insulin Human Lispro (Insulin Lispro 100 Unit/Ml Insuln.Pen) 20 unit SC DINNER [facility] Insulin Human Lispro (Insulin Lispro 100 Unit/Ml Insuln.Pen) 20 unit SC LUNCH [facility] Losartan Potassium (Losartan Potassium 50 Mg Tablet) 50 mg PO DAILY [facility] Last Admin: 05/04/20 09:10 Dose: 50 mg Documented by: Magnesium Hydroxide (Magnesium Hydroxide 30 Ml Udc) 30 ml PO DAILY PRN PRN PRN Reason: Constipation Melatonin (Melatonin 3 Mg Tablet) 3 mg PO QHS PRN PRN PRN Reason: INSOMNIA Last Admin: 05/04/20 21:19 Dose: 3 mg Documented by: Nitroglycerin (Nitroglycerin (Inpatient Use) 0.4 Mg Tab.Subl) 0.4 mg SUBLINGUAL Q5M PRN PRN Reason: CARDIAC/CHEST PAIN Ondansetron HCl (Ondansetron 4 Mg/2 Ml Vial) 4 mg IV Q8H PRN PRN PRN Reason: NAUSEA/VOMITING Oxycodone HCl (Oxycodone 5 Mg Tablet) 10 mg PO Q4H PRN PRN PRN Reason: Pain Score 4-5 Prochlorperazine Edisylate (Prochlorperazine 10 Mg/2 Ml Vial) 5 mg IV Q4H PRN PRN PRN Reason: Breakthrough nausea/vomiting Sodium Chloride (0.9% Saline Lock 10 Ml Syringe) 10 - 40 ml IV UD PRN PRN Reason: SALINE FLUSH Last Admin: 05/04/20 16:34 Dose: 10 ml Documented by: Tamsulosin HCl (Tamsulosin Hcl 0.4 Mg Capsule) 0.4 mg PO QHS [facility] Last Admin: 05/04/20 21:19 Dose: 0.4 mg Documented by: Medical Necessity - Tobacco Use Smoking Status: Never smoker Assessment/Plan All Active Problems Hyperglycemia due to diabetes mellitus (Acute) COVID-19 (Acute) Hypoxemia (Acute) Pulmonary embolism (Acute) Sepsis (Acute) History of cholecystectomy (Resolved) Shortness of breath (Acute) RECOMMENDATIONS: 1. Wean supplemental oxygen to maintain saturations at or above 90%. 2. Continue Decadron with plans to complete a 10-day treatment course. 3. Continue remdesivir to complete treatment course. Monitor liver and renal function accordingly. 4. Discontinue Pradaxa completely at discharge. Agree with transition to Eliquis. 5. Encourage incentive spirometer use and mobilize patient as tolerated. 6. Start antimicrobials. Will defer to infectious diseases. 7. Attempt gentle diuresis with IV Lasix today. IMPRESSIONS: 1. Acute hypoxemic respiratory failure secondary to COVID-19 pneumonia and bilateral pulmonary emboli Plan to continue current supportive measures, including Decadron with plans to complete a 10-day treatment course. In addition, I would recommend that remdesivir also be continued. Given the patient's pulmonary emboli, plan to continue systemic anticoagulation with Eliquis. Plan to wean supplemental oxygen to maintain saturations at or above 90%. Given that the patient is now growing Haemophilus and Streptococcus from his sputum culture, recommend antimicrobials be initiated per ID recommendations. In addition, the patient will be started on gentle diuresis today. 2. Diabetes mellitus/hypertension/hyperlipidemia/BPH/obesity/paroxysmal atrial fibrillation Complicates care, management, recovery and prognosis. Recommend complete discontinuation of Pradaxa given high risk for bleeding complications. Continue home medications as indicated. This note was generated with Dragon dictation software. It may contain incorrect words, spelling, and punctuation that were not noted in checking the note before signing. Inpatient E&M: 50478 Subs Hosp L3
[2020-05-05] MEDS: Insulin Lispro 100 UNIT/ML INSULN.PEN SC ×4 (08:10→21:03)
[2020-05-05] MEDS: Insulin Lispro 100 UNIT/ML INSULN.PEN 20 UNIT SC ×3 (08:11→16:59)
[2020-05-05] MEDS: Furosemide 40 MG/4 ML Vial IV (08:12)
[2020-05-05] MEDS: Losartan Potassium 50 MG Tablet PO (08:13)
[2020-05-05] MEDS: dexAMETHasone 4 MG Tablet 6 MG PO (08:13)
[2020-05-05] MEDS: APIXABAN 5 MG TABLET 10 MG PO ×2 (08:13→21:07)
[2020-05-05] MEDS: Atenolol 25 MG Tablet 12.5 MG PO (08:14)
[2020-05-05] MEDS: Finasteride 5 MG Tablet PO (08:14)
[2020-05-05 08:50] LABS: Bedside Glucose 257 mg/dL (70-110)
[2020-05-05 11:05] LABS: Bedside Glucose 387 mg/dL (70-110)
[2020-05-05 12:10] LABS: Pathologist Review Reviewed
[2020-05-05] MEDS: Acetaminophen 325 MG Tablet 650 MG PO (13:09)
--- NOTE | 2020-05-05 13:58 | PN.ID_ITS ---
Patient Problems: Active and Suspected Problems Hyperglycemia due to diabetes mellitus (Acute) COVID-19 (Acute) Hypoxemia (Acute) Pulmonary embolism (Acute) Sepsis (Acute) Shortness of breath (Acute) Intraperitoneal bleeding (Suspected) Subjective: Feeling better overall, some sputum, no fever, O2 worse - Physical Exam Vitals/I&O's: Vital Signs Temp Pulse Resp BP Pulse Ox 97.6 F L 75 18 126/59 H 93 05/05/20 13:43 05/05/20 13:43 05/05/20 13:45 05/05/20 13:43 05/05/20 13:43 Oxygen Flow Rate (L/min) 6 Oxygen Delivery Method Nasal Cannula Weight: 114.6 kg Body Mass Index (BMI) 40.1 Finger Stick Blood Glucose 161 Intake and Output for Last 24 Hours 05/03/20 05/04/20 05/05/20 23:59 23:59 23:59 Intake Total 727.87 / 727.87 1476.48 / 1476.48 550 / 550 Output Total 450 / 450 325 / 325 Balance 277.87 / 277.87 1476.48 / 1476.48 225 / 225 General: Alert, Cooperative, No apparent distress Lungs: Diminished Cardiovascular: Regular rate, Regular Rhythm Abdomen: Soft, Non Tender, Non-Distended Skin: No rashes Microbiology Past 72 Hours 05/04/20 10:15 Sputum, Expectorated/Coughed Gram Stain - Final 05/04/20 10:15 Sputum, Expectorated/Coughed Respiratory Culture - Preliminary GNR Possible Haemophilus sp. Streptococcus group B 05/03/20 08:45 Blood Culture (Wb) - Left Hand Bacteria Detection (PCR) - Final Staphylococcus epidermidis 05/03/20 08:45 Blood Culture (Wb) - Left Hand Blood Culture - Preliminary Staphylococcus epidermidis 05/04/20 Unknown Interface Orders Legionella Antigen - Final 05/04/20 Unknown Interface Orders Streptococcus pneumoniae Antigen (M - Final 05/03/20 08:52 Mucosa - Nose SARS-CoV-2 Antigen (Rapid) - Final Laboratory Results 05/04/20 16:25: POC Glucose 354 H 05/04/20 21:16: POC Glucose 364 H 05/05/20 06:15: WBC 3.6 L, RBC 4.39 L, Hgb 13.0, Hct 39.0 L, MCV 88.8, MCH 29.6, MCHC 33.3, RDW Std Deviation 43.5, RDW Coeff of Taras 13.2, Plt Count 63 L, MPV 11.6, Immature Gran % (Auto) 0.500, Neut % (Auto) 84.1 H, Lymph % (Auto) 9.9 L, [place] % (Auto) 5.5, Eos % (Auto) 0.0, Baso % (Auto) 0.0, Absolute Neuts (auto) 3.1, Absolute Lymphs (auto) 0.36 L, Nucleated RBC % 0, Diff Path Review Reviewed, Platelet Estimate SLT 05/05/20 06:15: Sodium 135 L, Potassium 4.2, Chloride 103, Carbon Dioxide 28.0, Anion Gap 4 L, BUN 26 H, Creatinine 0.69 L, Estim Creat Clear Calc 61.14, Est GFR (MDRD) Af Amer 145, Est GFR (MDRD) Non-Af 120, BUN/Creatinine Ratio 37.6 H, Glucose 253 H, Calcium 8.3 L, Total Bilirubin 1.00, AST 33, ALT 28, Alkaline Phosphatase 62, Total Protein 6.0 L, Albumin 2.1 L, Globulin 3.9, Albumin/Globulin Ratio 0.5 L 05/05/20 07:56: POC Glucose 257 H 05/05/20 10:47: POC Glucose 387 H Current Medications Acetaminophen (Acetaminophen 325 Mg Tablet) 650 mg PO Q6H PRN PRN PRN Reason: Pain Score 1-10/Temp > 100.7 F Last Admin: 05/05/20 13:09 Dose: 650 mg Documented by: Al Hydroxide/Mg Hydroxide (Mag Hydrox/Al Hydrox/Simeth 30 Ml Udc) 30 ml PO Q6H PRN PRN PRN Reason: Gastric Burning Albuterol Sulfate (Albuterol Ih 8.5 Gm (Proair) Inhaler (200 Puffs)) 2.5 puff INHALATION Q2H PRN PRN PRN Reason: Shortness of Breath/Wheezing Last Admin: 05/04/20 09:21 Dose: 2.5 puff Documented by: Apixaban (Apixaban 5 Mg Tablet) 10 mg PO BID [facility] Last Admin: 05/05/20 08:13 Dose: 10 mg Documented by: Atenolol (Atenolol 25 Mg Tablet) 12.5 mg PO DAILY [facility] Last Admin: 05/05/20 08:14 Dose: 12.5 mg Documented by: Atorvastatin Calcium (Atorvastatin Calcium 20 Mg Tablet) 20 mg PO QHS [facility] Last Admin: 05/04/20 21:19 Dose: 20 mg Documented by: Cholecalciferol (Cholecalciferol (Vit D3) 1,000 Unit (25mcg)) 1,000 unit PO BID [facility] Last Admin: 05/05/20 08:16 Dose: 1,000 unit Documented by: Cyanocobalamin (Cyanocobalamin 500 Mcg Tablet) 1,000 mcg PO DAILY [facility] Last Admin: 05/04/20 09:06 Dose: 1,000 mcg Documented by: Dexamethasone (Dexamethasone 4 Mg Tablet) 6 mg PO DAILY [facility] Last Admin: 05/05/20 08:13 Dose: 6 mg Documented by: Dextrose (Dextrose 50%-Water 25 Gm/50 Ml Disp.Syrin) 0 gm IV X1 PRN; Protocol PRN Reason: Hypoglycemia Finasteride (Finasteride 5 Mg Tablet) 5 mg PO DAILY [facility] Last Admin: 05/05/20 08:14 Dose: 5 mg Documented by: Glucagon (Glucagon 1 Mg/Ml Syringe) 1 mg IM .X1 PRN PRN Reason: Hypoglycemia Hydromorphone HCl (Hydromorphone 1 Mg/Ml Syringe) 1 mg IV Q4H PRN PRN PRN Reason: Pain Score 6-10 Remdesivir 100 mg/ Sodium (Chloride) 250 mls @ 125 mls/hr IV DAILY [facility] Stop: 05/07/20 11:59 Last Infusion: 05/05/20 12:52 Dose: Infused Documented by: Sodium Chloride () 250 mls @ 15 mls/hr IV .[id number] PRN PRN Reason: Saline Flush Last Infusion: 05/04/20 15:30 Dose: 0 mls/hr Documented by: Sodium Chloride () 250 mls @ 15 mls/hr IV .[id number] PRN PRN Reason: Additional IVPB Infusion Ceftriaxone Sodium 2 gm/ (Sodium Chloride) 50 mls @ 100 mls/hr IV Q24 [facility] Insulin Glargine (Insulin Glargine 100 Units/Ml Pen) 50 units SC 1100,2200 [facility] Last Admin: 05/05/20 10:55 Dose: 50 u Documented by: Insulin Human Lispro (Insulin Lispro 100 Unit/Ml Insuln.Pen) 0 unit SC ACHS [facility]; Protocol Last Admin: 05/05/20 10:54 Dose: 10 units Documented by: Insulin Human Lispro (Insulin Lispro 100 Unit/Ml Insuln.Pen) 20 unit SC BREAKFAST [facility] Last Admin: 05/05/20 08:11 Dose: 20 u Documented by: Insulin Human Lispro (Insulin Lispro 100 Unit/Ml Insuln.Pen) 20 unit SC DINNER [facility] Insulin Human Lispro (Insulin Lispro 100 Unit/Ml Insuln.Pen) 20 unit SC LUNCH [facility] Last Admin: 05/05/20 13:05 Dose: 20 u Documented by: Losartan Potassium (Losartan Potassium 50 Mg Tablet) 50 mg PO DAILY [facility] Last Admin: 05/05/20 08:13 Dose: 50 mg Documented by: Magnesium Hydroxide (Magnesium Hydroxide 30 Ml Udc) 30 ml PO DAILY PRN PRN PRN Reason: Constipation Melatonin (Melatonin 3 Mg Tablet) 3 mg PO QHS PRN PRN PRN Reason: INSOMNIA Last Admin: 05/04/20 21:19 Dose: 3 mg Documented by: Nitroglycerin (Nitroglycerin (Inpatient Use) 0.4 Mg Tab.Subl) 0.4 mg SUBLINGUAL Q5M PRN PRN Reason: CARDIAC/CHEST PAIN Ondansetron HCl (Ondansetron 4 Mg/2 Ml Vial) 4 mg IV Q8H PRN PRN PRN Reason: NAUSEA/VOMITING Oxycodone HCl (Oxycodone 5 Mg Tablet) 10 mg PO Q4H PRN PRN PRN Reason: Pain Score 4-5 Prochlorperazine Edisylate (Prochlorperazine 10 Mg/2 Ml Vial) 5 mg IV Q4H PRN PRN PRN Reason: Breakthrough nausea/vomiting Sodium Chloride (0.9% Saline Lock 10 Ml Syringe) 10 - 40 ml IV UD PRN PRN Reason: SALINE FLUSH Last Admin: 05/04/20 16:34 Dose: 10 ml Documented by: Tamsulosin HCl (Tamsulosin Hcl 0.4 Mg Capsule) 0.4 mg PO QHS [facility] Last Admin: 05/04/20 21:19 Dose: 0.4 mg Documented by: Medical Necessity - Tobacco Use Smoking Status: Never smoker Route of nutrition/ use of supplements: [] Nutritional Intake: [] IV Site: [] Rao Catheter: [] - Assessment/Plan Antibiotics: [] Assessment/Plan: [] Active and Suspected Problems Hyperglycemia due to diabetes mellitus (Acute) COVID-19 (Acute) Hypoxemia (Acute) Pulmonary embolism (Acute) Sepsis (Acute) Shortness of breath (Acute) Intraperitoneal bleeding (Suspected) covid with hypoxia and PEs - sx started 04/23, (+) covid as an outpt. with cough, recommended she get tested and quarantine. On dex, anticoagulation, and remdesivir. 1 of 2 bcx with CoNS, consistent with contaminant. O2 worse, sputum now with haemophilus and strep, will start ceftriaxone. Will follow
[2020-05-05] MEDS: 0.9% Saline Lock 10 ML Syringe IV (21:02)
[2020-05-05] MEDS: Tamsulosin HCl 0.4 MG Capsule PO (21:06)
[2020-05-05] MEDS: Atorvastatin Calcium 20 MG Tablet PO (21:06)
[2020-05-05 21:20] LABS: Bedside Glucose 342 mg/dL (70-110)
[2020-05-05 21:36] LABS: Bedside Glucose 316 mg/dL (70-110)
[2020-05-05] MEDS: MELATONIN 3 MG TABLET PO (22:10)
[2020-05-06] VITALS (12 sets, daily range): BP systolic 115–146; BP diastolic 61–67; PULSE 56–64; RESP 16–20; TEMP 36.1–36.4; O2SAT 83–93
[2020-05-06 05:29] LABS: Absolute Lymphocyte Count 0.35 X10^3/uL (0.83-4.51); Absolute Neutrophil Count 3.2 X10^3/uL (2.0-7.7); Basophil# 0.01 X10^3/uL; Basophil% 0.3 % (0-1); Hematocrit 38.2 % (40-54); Hemoglobin 13.2 g/dL (13.0-16.5); Lymphocyte # 0.35 X10^3/ul (4.0); Lymphocyte % 8.9 % (19-41); Mean Corp Hgb Conc 34.6 g/dL (32-36); Mean Corpuscular Hgb 30.6 pg (27.0-32.0); Mean Corpuscular Volume 88.4 fL (80-94); Mean Platelet Vol. 11.2 fl (6.2-12.0); Monocyte# 0.34 X10^3/uL; Monocyte% 8.7 % (0-10); NRBC Flagged by Analyzer 0 % (0-5); Neutrophil # 3.21 X10^3/uL (2.7-7.7); Neutrophil % 81.6 % (47-70); POSITIVE COUNT YES; POSITIVE DIFFERENTIAL YES; POSITIVE MORPHOLOGY YES; Platelet Count 70 K/mm3 (150-450); RBC Distribution Width CV 13.1 % (11.6-14.6); RBC Distribution Width SD 42.6 fl (35.1-43.9); Red Blood Count 4.32 M/mm3 (4.6-6.2); White Blood Count 3.9 K/mm3 (4.4-11.0)
[2020-05-06 05:47] LABS: BNP,B-Type NATRIURETIC PEPTIDE 19.7 pg/mL (0-100)
[2020-05-06 05:52] LABS: Differential Indicated SCAN CRITERIA MET
[2020-05-06 06:10] LABS: Platelet Estimate MOD DEC (ADEQ)
--- NOTE | 2020-05-06 07:47 | PCM.PN.HOSP ---
Patient Problems: Active and Suspected Problems Hyperglycemia due to diabetes mellitus (Acute) COVID-19 (Acute) Hypoxemia (Acute) Pulmonary embolism (Acute) Sepsis (Acute) Shortness of breath (Acute) Intraperitoneal bleeding (Suspected) Reason for Visit: Acute hypoxic respiratory failure Bilateral multiple PEs Acute COVID-19 pneumonitis Subjective: Patient seen states he thinks his condition is getting better however still remains on high flow oxygen. Blood glucose remains uncontrolled subsequent adjustment made to patient insulin regimen Objective: GENERAL: cooperative HEENT: Atraumatic; EYES; Anicteric, Normal Conjunctiva NECK; supple, normal thyroid, RESPIRATORY: Diminished to auscultation CARDIOVASCULAR: Regular S1 S2, GI: soft, normoactive bowel sounds, : No Renal angle tenderness; EXTREMITIES: No edema, no clubbing, MUSCULOSKELETAL: no muscle waisting NEURO: Awake; no lateralizing signs. SKIN: No Rash PSYCH; Flat affect Vitals/I&O's: Vital Signs Temp Pulse Resp BP Pulse Ox 96.9 F L 61 18 115/61 92 05/06/20 03:58 05/06/20 04:07 05/06/20 03:58 05/06/20 03:58 05/06/20 03:58 Oxygen Flow Rate (L/min) 15 Oxygen Delivery Method Nasal Cannula Weight: 114.6 kg Body Mass Index (BMI) 40.1 Finger Stick Blood Glucose 161 Intake and Output for Last 24 Hours 05/04/20 05/05/20 05/06/20 23:59 23:59 23:59 Intake Total 1476.48 / 1476.48 600 / 600 Output Total 875 / 875 450 / 450 Balance 1476.48 / 1476.48 -275 / -275 -450 / -450 Microbiology Past 72 Hours 05/03/20 08:45 Blood Culture (Wb) - Left Hand Bacteria Detection (PCR) - Final Staphylococcus epidermidis 05/03/20 08:45 Blood Culture (Wb) - Left Hand Blood Culture - Preliminary Staphylococcus epidermidis 05/04/20 10:15 Sputum, Expectorated/Coughed Gram Stain - Final 05/04/20 10:15 Sputum, Expectorated/Coughed Respiratory Culture - Preliminary Haemophilus influenzae Streptococcus group B 05/04/20 Unknown Interface Orders Legionella Antigen - Final 05/04/20 Unknown Interface Orders Streptococcus pneumoniae Antigen (M - Final 05/03/20 08:52 Mucosa - Nose SARS-CoV-2 Antigen (Rapid) - Final Laboratory Results 05/05/20 06:15: Diff Path Review Reviewed 05/05/20 07:56: POC Glucose 257 H 05/05/20 10:47: POC Glucose 387 H 05/05/20 16:56: POC Glucose 342 H 05/05/20 20:52: POC Glucose 316 H 05/06/20 05:18: WBC 3.9 L, RBC 4.32 L, Hgb 13.2, Hct 38.2 L, MCV 88.4, MCH 30.6, MCHC 34.6, RDW Std Deviation 42.6, RDW Coeff of Taras 13.1, Plt Count 70 L, MPV 11.2, Immature Gran % (Auto) 0.500, Neut % (Auto) 81.6 H, Lymph % (Auto) 8.9 L, [place] % (Auto) 8.7, Eos % (Auto) 0.0, Baso % (Auto) 0.3, Absolute Neuts (auto) 3.2, Absolute Lymphs (auto) 0.35 L, Nucleated RBC % 0, Diff Path Review August foll, Platelet Estimate MOD 05/06/20 05:18: Sodium Pending, Potassium Pending, Chloride Pending, Carbon Dioxide Pending, Anion Gap Pending, BUN Pending, Creatinine Pending, Est GFR (MDRD) Af Amer Pending, Est GFR (MDRD) Non-Af Pending, BUN/Creatinine Ratio Pending, Glucose Pending, Calcium Pending, Total Bilirubin Pending, AST Pending, ALT Pending, Alkaline Phosphatase Pending, Total Protein Pending, Albumin Pending 05/06/20 05:18: B-Natriuretic Peptide 19.7 05/06/20 05:18: Procalcitonin Pending Current Medications Acetaminophen (Acetaminophen 325 Mg Tablet) 650 mg PO Q6H PRN PRN PRN Reason: Pain Score 1-10/Temp > 100.7 F Last Admin: 05/05/20 13:09 Dose: 650 mg Documented by: Al Hydroxide/Mg Hydroxide (Mag Hydrox/Al Hydrox/Simeth 30 Ml Udc) 30 ml PO Q6H PRN PRN PRN Reason: Gastric Burning Albuterol Sulfate (Albuterol Ih 8.5 Gm (Proair) Inhaler (200 Puffs)) 2.5 puff INHALATION Q2H PRN PRN PRN Reason: Shortness of Breath/Wheezing Last Admin: 05/04/20 09:21 Dose: 2.5 puff Documented by: Apixaban (Apixaban 5 Mg Tablet) 10 mg PO BID [facility] Last Admin: 05/05/20 21:07 Dose: 10 mg Documented by: Atenolol (Atenolol 25 Mg Tablet) 12.5 mg PO DAILY [facility] Last Admin: 05/05/20 08:14 Dose: 12.5 mg Documented by: Atorvastatin Calcium (Atorvastatin Calcium 20 Mg Tablet) 20 mg PO QHS [facility] Last Admin: 05/05/20 21:06 Dose: 20 mg Documented by: Cholecalciferol (Cholecalciferol (Vit D3) 1,000 Unit (25mcg)) 1,000 unit PO BID [facility] Last Admin: 05/05/20 21:06 Dose: 1,000 unit Documented by: Cyanocobalamin (Cyanocobalamin 500 Mcg Tablet) 1,000 mcg PO DAILY [facility] Last Admin: 05/04/20 09:06 Dose: 1,000 mcg Documented by: Dexamethasone (Dexamethasone 4 Mg Tablet) 6 mg PO DAILY [facility] Last Admin: 05/05/20 08:13 Dose: 6 mg Documented by: Dextrose (Dextrose 50%-Water 25 Gm/50 Ml Disp.Syrin) 0 gm IV X1 PRN; Protocol PRN Reason: Hypoglycemia Finasteride (Finasteride 5 Mg Tablet) 5 mg PO DAILY [facility] Last Admin: 05/05/20 08:14 Dose: 5 mg Documented by: Glucagon (Glucagon 1 Mg/Ml Syringe) 1 mg IM .X1 PRN PRN Reason: Hypoglycemia Hydromorphone HCl (Hydromorphone 1 Mg/Ml Syringe) 1 mg IV Q4H PRN PRN PRN Reason: Pain Score 6-10 Remdesivir 100 mg/ Sodium (Chloride) 250 mls @ 125 mls/hr IV DAILY [facility] Stop: 05/07/20 11:59 Last Infusion: 05/05/20 12:52 Dose: Infused Documented by: Sodium Chloride () 250 mls @ 15 mls/hr IV .[id number] PRN PRN Reason: Saline Flush Last Infusion: 05/04/20 15:30 Dose: 0 mls/hr Documented by: Sodium Chloride () 250 mls @ 15 mls/hr IV .[id number] PRN PRN Reason: Additional IVPB Infusion Ceftriaxone Sodium 2 gm/ (Sodium Chloride) 50 mls @ 100 mls/hr IV Q24 [facility] Last Infusion: 05/05/20 17:28 Dose: Infused Documented by: Insulin Glargine (Insulin Glargine 100 Units/Ml Pen) 50 units SC 1100,2200 [facility] Last Admin: 05/05/20 21:04 Dose: 50 u Documented by: Insulin Human Lispro (Insulin Lispro 100 Unit/Ml Insuln.Pen) 0 unit SC ACHS [facility]; Protocol Last Admin: 05/05/20 21:03 Dose: 6 units Documented by: Insulin Human Lispro (Insulin Lispro 100 Unit/Ml Insuln.Pen) 20 unit SC BREAKFAST [facility] Last Admin: 05/05/20 08:11 Dose: 20 u Documented by: Insulin Human Lispro (Insulin Lispro 100 Unit/Ml Insuln.Pen) 20 unit SC DINNER [facility] Last Admin: 05/05/20 16:59 Dose: 20 u Documented by: Insulin Human Lispro (Insulin Lispro 100 Unit/Ml Insuln.Pen) 20 unit SC LUNCH [facility] Last Admin: 05/05/20 13:05 Dose: 20 u Documented by: Losartan Potassium (Losartan Potassium 50 Mg Tablet) 50 mg PO DAILY [facility] Last Admin: 05/05/20 08:13 Dose: 50 mg Documented by: Magnesium Hydroxide (Magnesium Hydroxide 30 Ml Udc) 30 ml PO DAILY PRN PRN PRN Reason: Constipation Melatonin (Melatonin 3 Mg Tablet) 3 mg PO QHS PRN PRN PRN Reason: INSOMNIA Last Admin: 05/05/20 22:10 Dose: 3 mg Documented by: Nitroglycerin (Nitroglycerin (Inpatient Use) 0.4 Mg Tab.Subl) 0.4 mg SUBLINGUAL Q5M PRN PRN Reason: CARDIAC/CHEST PAIN Ondansetron HCl (Ondansetron 4 Mg/2 Ml Vial) 4 mg IV Q8H PRN PRN PRN Reason: NAUSEA/VOMITING Oxycodone HCl (Oxycodone 5 Mg Tablet) 10 mg PO Q4H PRN PRN PRN Reason: Pain Score 4-5 Prochlorperazine Edisylate (Prochlorperazine 10 Mg/2 Ml Vial) 5 mg IV Q4H PRN PRN PRN Reason: Breakthrough nausea/vomiting Sodium Chloride (0.9% Saline Lock 10 Ml Syringe) 10 - 40 ml IV UD PRN PRN Reason: SALINE FLUSH Last Admin: 05/05/20 21:02 Dose: 10 ml Documented by: Sodium Chloride (Sodium Chloride 0.65% 1 [place].Btl) 2 spray NASAL TID PRN PRN PRN Reason: NASAL DRYNESS Tamsulosin HCl (Tamsulosin Hcl 0.4 Mg Capsule) 0.4 mg PO QHS [facility] Last Admin: 05/05/20 21:06 Dose: 0.4 mg Documented by: STROKE Vital Signs/Narrative: Vital Signs Temp Pulse Resp BP Pulse Ox 05/06/20 04:07 61 05/06/20 03:58 96.9 F L 60 18 115/61 92 05/06/20 03:55 83 Medical Necessity - Tobacco Use Smoking Status: Never smoker Assessment/Plan All Active Problems Hyperglycemia due to diabetes mellitus (Acute) COVID-19 (Acute) Hypoxemia (Acute) Pulmonary embolism (Acute) Sepsis (Acute) History of cholecystectomy (Resolved) Shortness of breath (Acute) The patient is a 69 year old M recently diagnosed with COVID-19 who presented with progressive shortness of breath. Patient in addition did complain of headache fatigue fever and chills. Imaging studies obtained on admission demonstrated Multiple bilateral pulmonary emboli involving branches of the lower lobe pulmonary arteries as well as multiple bilateral pulmonary infiltrates 1. Acute hypoxic respiratory failure ?Secondary to acute COVID-19 pneumonia with superimposed bilateral pulmonary embolism and infiltrate. Admitted to the cohort floor. Patient is on Decadron did continue in addition patient was placed on supplemental oxygen titrated to keep saturation greater than 90 with consultation placed to both pulmonary medicine as well as infectious disease - 05/04/2020. Patient was admitted to monitored bed. Was started on heparin drip discontinued due to drop in his platelet count to switch to Eliquis. Was also seen in consultation by Dr. Chowdhury with infectious disease did start patient on remdesivir. Patient oxygen requirements increasing currently on 8 L at rest ?05/05/2020; patient seen still requires high flow oxygen -05/06/2020; Patient seen states he thinks his condition is getting better however still remains on high flow oxygen. 2. Acute COVID-19 pneumonitis ?Management as discussed above 3. Covid induced hypercoagulable state ?Patient presented with bilateral pulmonary embolism despite being on systemic anticoagulation with Pradaxa. Pradaxa discontinued patient started on heparin 4. Paroxysmal A. fib ?Rate controlled on systemic anticoagulation with Pradaxa which is being held in view of above 5. Diabetes mellitus type II -Controlled with hyperglycemia,patient's oral hypoglycemics held. Placed on long acting insulin, Accu-Cheks a.c. and at bedtime and covered with sliding scale insulin -05/06/2020; Blood glucose remains uncontrolled subsequent adjustment made to patient insulin regimen 6. Hypertension - Blood pressure controlled, home medications continued with dose adjustment as needed 7. Dyslipidemia -Patient is on statin therapy, continued at home dose 8. BPH ?Patient is on tamsulosin did continue 9. Morbid obesity - With a BMI of 46.2 patient was counseled on weight reduction 10. Thrombocytopenia ?Heparin drip discontinued Inpatient E&M: 54319 Subs Hosp L2
[2020-05-06 08:02] LABS: ALB/GLOB Ratio 0.6 RATIO (0.9-2.4); AST(SGOT) 39 U/L (15-37); Alanine Aminotransfer ALT/SGPT 39 U/L (16-61); Albumin, Serum 2.1 g/dL (3.2-5.0); Alkaline Phosphatase 67 U/L (45-117); Anion Gap 8 (5-15); BUN 26 mg/dL (7-18); BUN/Creat Ratio 37.7 RATIO (10-20); Chloride 104 mmol/L (98-107); Creatinine, Serum 0.69 mg/dL (0.70-1.30); EST Glomerular Filtration Rate 120 mL/min (>60); Est Glom Filt Rate - Afr Amer 146 mL/min (>60); Estimated Creatinine Clearance 61.14 ml/min; Globulin 3.4 g/dL (2.2-4.2); Glucose 228 mg/dL (74-106); Potassium 4.1 mmol/L (3.5-5.1); Protein, Total 5.5 g/dL (6.4-8.2); Sodium Level 137 mmol/L (136-145)
--- NOTE | 2020-05-06 08:13 | PN_ITS ---
Patient Problems: Active and Suspected Problems Hyperglycemia due to diabetes mellitus (Acute) COVID-19 (Acute) Hypoxemia (Acute) Pulmonary embolism (Acute) Sepsis (Acute) Shortness of breath (Acute) Intraperitoneal bleeding (Suspected) Subjective: The patient was seen and examined at the bedside this morning. Events from the last 24 hours have been reviewed. The patient is currently afebrile, hemodynamically stable and maintaining appropriate oxygen saturations on 15 L/min. However, upon entering the patient's room, it was noted that the nasal cannula was not even in his nose. Systemically anticoagulated on Eliquis. In addition, he remains on antimicrobials, Decadron and remdesivir. Liver and renal function are stable. Objective: The patient's most recent lab work, culture data and imaging studies have all been personally reviewed. Sputum culture was positive for possible Haemophilus and group B streptococcus. - Physical Exam Vitals/I&O's: Vital Signs Temp Pulse Resp BP Pulse Ox 96.9 F L 58 L 18 115/61 92 05/06/20 03:58 05/06/20 07:00 05/06/20 03:58 05/06/20 03:58 05/06/20 03:58 Oxygen Flow Rate (L/min) 15 Oxygen Delivery Method Nasal Cannula Weight: 252 lb 10.396 oz Body Mass Index (BMI) 40.1 Finger Stick Blood Glucose 161 Intake and Output for Last 24 Hours 05/04/20 05/05/20 05/06/20 23:59 23:59 23:59 Intake Total 1476.48 / 1476.48 600 / 600 Output Total 875 / 875 450 / 450 Balance 1476.48 / 1476.48 -275 / -275 -450 / -450 General: Alert, Oriented x3, Cooperative, No apparent distress HEENT: Atraumatic, PERRLA, Normocephalic Oral: No Gingival or Mucosal Lesions/ Ulcerations Neck: Supple, No Nodes, Trachea Midline Lungs: No rhonchi, No wheeze, No rales, Diminished Cardiovascular: Regular rate, Regular Rhythm, Normal S1, Normal S2, No murmurs Abdomen: Bowel Sounds Present, Soft, Non Tender, Obese Extremities: No clubbing, No cyanosis, No edema Skin: No breakdown Musculoskeletal: No Tenderness to Palpation of Joints or Extremities, No Muscle Wasting Lymphatic: No Cervical, Supraclavicular, or Inguinal Adenopathy Neurological: Cranial nerves II-XII grossly intact, Neuro grossly intact Psych/Mental Status: Alert and oriented to time, place, person, mood and affect Labs (Last 48 Hours) 05/04/20 05/04/20 05/04/20 01:06 08:33 08:43 WBC RBC Hgb Hct MCV MCH MCHC RDW Std Deviation RDW Coeff of Taras Plt Count MPV Immature Gran % (Auto) Neut % (Auto) Lymph % (Auto) [place] % (Auto) Eos % (Auto) Baso % (Auto) Absolute Neuts (auto) Absolute Lymphs (auto) Nucleated RBC % Diff Path Review Reviewed Platelet Estimate APTT 71.8 H Sodium Potassium Chloride Carbon Dioxide Anion Gap BUN Creatinine Estim Creat Clear Calc Est GFR (MDRD) Af Amer Est GFR (MDRD) Non-Af BUN/Creatinine Ratio Glucose Calcium Total Bilirubin AST ALT Alkaline Phosphatase B-Natriuretic Peptide Total Protein Albumin Globulin Albumin/Globulin Ratio Procalcitonin POC Glucose 295 H 05/04/20 05/04/20 05/04/20 11:27 16:25 21:16 WBC RBC Hgb Hct MCV MCH MCHC RDW Std Deviation RDW Coeff of Taras Plt Count MPV Immature Gran % (Auto) Neut % (Auto) Lymph % (Auto) [place] % (Auto) Eos % (Auto) Baso % (Auto) Absolute Neuts (auto) Absolute Lymphs (auto) Nucleated RBC % Diff Path Review Platelet Estimate APTT Sodium Potassium Chloride Carbon Dioxide Anion Gap BUN Creatinine Estim Creat Clear Calc Est GFR (MDRD) Af Amer Est GFR (MDRD) Non-Af BUN/Creatinine Ratio Glucose Calcium Total Bilirubin AST ALT Alkaline Phosphatase B-Natriuretic Peptide Total Protein Albumin Globulin Albumin/Globulin Ratio Procalcitonin POC Glucose 424 H 354 H 364 H 05/05/20 05/05/20 05/05/20 06:15 06:15 07:56 WBC 3.6 L RBC 4.39 L Hgb 13.0 Hct 39.0 L MCV 88.8 MCH 29.6 MCHC 33.3 RDW Std Deviation 43.5 RDW Coeff of Taras 13.2 Plt Count 63 L MPV 11.6 Immature Gran % (Auto) 0.500 Neut % (Auto) 84.1 H Lymph % (Auto) 9.9 L [place] % (Auto) 5.5 Eos % (Auto) 0.0 Baso % (Auto) 0.0 Absolute Neuts (auto) 3.1 Absolute Lymphs (auto) 0.36 L Nucleated RBC % 0 Diff Path Review Reviewed Platelet Estimate SLT DEC APTT Sodium 135 L Potassium 4.2 Chloride 103 Carbon Dioxide 28.0 Anion Gap 4 L BUN 26 H Creatinine 0.69 L Estim Creat Clear Calc 61.14 Est GFR (MDRD) Af Amer 145 Est GFR (MDRD) Non-Af 120 BUN/Creatinine Ratio 37.6 H Glucose 253 H Calcium 8.3 L Total Bilirubin 1.00 AST 33 ALT 28 Alkaline Phosphatase 62 B-Natriuretic Peptide Total Protein 6.0 L Albumin 2.1 L Globulin 3.9 Albumin/Globulin Ratio 0.5 L Procalcitonin POC Glucose 257 H 05/05/20 05/05/20 05/05/20 10:47 16:56 20:52 WBC RBC Hgb Hct MCV MCH MCHC RDW Std Deviation RDW Coeff of Taras Plt Count MPV Immature Gran % (Auto) Neut % (Auto) Lymph % (Auto) [place] % (Auto) Eos % (Auto) Baso % (Auto) Absolute Neuts (auto) Absolute Lymphs (auto) Nucleated RBC % Diff Path Review Platelet Estimate APTT Sodium Potassium Chloride Carbon Dioxide Anion Gap BUN Creatinine Estim Creat Clear Calc Est GFR (MDRD) Af Amer Est GFR (MDRD) Non-Af BUN/Creatinine Ratio Glucose Calcium Total Bilirubin AST ALT Alkaline Phosphatase B-Natriuretic Peptide Total Protein Albumin Globulin Albumin/Globulin Ratio Procalcitonin POC Glucose 387 H 342 H 316 H 05/06/20 05/06/20 05/06/20 05:18 05:18 05:18 WBC 3.9 L RBC 4.32 L Hgb 13.2 Hct 38.2 L MCV 88.4 MCH 30.6 MCHC 34.6 RDW Std Deviation 42.6 RDW Coeff of Taras 13.1 Plt Count 70 L MPV 11.2 Immature Gran % (Auto) 0.500 Neut % (Auto) 81.6 H Lymph % (Auto) 8.9 L [place] % (Auto) 8.7 Eos % (Auto) 0.0 Baso % (Auto) 0.3 Absolute Neuts (auto) 3.2 Absolute Lymphs (auto) 0.35 L Nucleated RBC % 0 Diff Path Review May foll Platelet Estimate MOD DEC APTT Sodium 137 Potassium 4.1 Chloride 104 Carbon Dioxide 25.0 Anion Gap 8 BUN 26 H Creatinine 0.69 L Estim Creat Clear Calc 61.14 Est GFR (MDRD) Af Amer 146 Est GFR (MDRD) Non-Af 120 BUN/Creatinine Ratio 37.7 H Glucose 228 H Calcium 8.0 L Total Bilirubin 0.90 AST 39 H ALT 39 Alkaline Phosphatase 67 B-Natriuretic Peptide 19.7 Total Protein 5.5 L Albumin 2.1 L Globulin 3.4 Albumin/Globulin Ratio 0.6 L Procalcitonin POC Glucose 05/06/20 05:18 WBC RBC Hgb Hct MCV MCH MCHC RDW Std Deviation RDW Coeff of Taras Plt Count MPV Immature Gran % (Auto) Neut % (Auto) Lymph % (Auto) [place] % (Auto) Eos % (Auto) Baso % (Auto) Absolute Neuts (auto) Absolute Lymphs (auto) Nucleated RBC % Diff Path Review Platelet Estimate APTT Sodium Potassium Chloride Carbon Dioxide Anion Gap BUN Creatinine Estim Creat Clear Calc Est GFR (MDRD) Af Amer Est GFR (MDRD) Non-Af BUN/Creatinine Ratio Glucose Calcium Total Bilirubin AST ALT Alkaline Phosphatase B-Natriuretic Peptide Total Protein Albumin Globulin Albumin/Globulin Ratio Procalcitonin Pending POC Glucose Microbiology 05/03/20 08:45 Blood Culture (Wb) - Left Hand Bacteria Detection (PCR) - Final Staphylococcus epidermidis 05/03/20 08:45 Blood Culture (Wb) - Left Hand Blood Culture - Preliminary Staphylococcus epidermidis 05/04/20 10:15 Sputum, Expectorated/Coughed Gram Stain - Final 05/04/20 10:15 Sputum, Expectorated/Coughed Respiratory Culture - Preliminary Haemophilus influenzae Streptococcus group B Clinical Impression(s) from Imaging Studies Chest X-Ray 05/03/20 08:55 IMPRESSION: Minimal increased markings at the left lung base with blunting of left costophrenic angle. There has been no change since prior study. Electronically Signed: Casimiro Marie MD at 9:09 EST , Service support , Chest CTA 05/03/20 09:36 IMPRESSION: Multiple bilateral pulmonary emboli involving branches of the lower lobe pulmonary arteries. Multiple bilateral pulmonary infiltrates as described. Splenomegaly. Electronically Signed: Casimiro Marie MD at 10:41 EST , Service support , Current Medications Acetaminophen (Acetaminophen 325 Mg Tablet) 650 mg PO Q6H PRN PRN PRN Reason: Pain Score 1-10/Temp > 100.7 F Last Admin: 05/05/20 13:09 Dose: 650 mg Documented by: Al Hydroxide/Mg Hydroxide (Mag Hydrox/Al Hydrox/Simeth 30 Ml Udc) 30 ml PO Q6H PRN PRN PRN Reason: Gastric Burning Albuterol Sulfate (Albuterol Ih 8.5 Gm (Proair) Inhaler (200 Puffs)) 2.5 puff INHALATION Q2H PRN PRN PRN Reason: Shortness of Breath/Wheezing Last Admin: 05/04/20 09:21 Dose: 2.5 puff Documented by: Apixaban (Apixaban 5 Mg Tablet) 10 mg PO BID [facility] Last Admin: 05/05/20 21:07 Dose: 10 mg Documented by: Atenolol (Atenolol 25 Mg Tablet) 12.5 mg PO DAILY [facility] Last Admin: 05/05/20 08:14 Dose: 12.5 mg Documented by: Atorvastatin Calcium (Atorvastatin Calcium 20 Mg Tablet) 20 mg PO QHS [facility] Last Admin: 05/05/20 21:06 Dose: 20 mg Documented by: Cholecalciferol (Cholecalciferol (Vit D3) 1,000 Unit (25mcg)) 1,000 unit PO BID [facility] Last Admin: 05/05/20 21:06 Dose: 1,000 unit Documented by: Cyanocobalamin (Cyanocobalamin 500 Mcg Tablet) 1,000 mcg PO DAILY [facility] Last Admin: 05/04/20 09:06 Dose: 1,000 mcg Documented by: Dexamethasone (Dexamethasone 4 Mg Tablet) 6 mg PO DAILY [facility] Last Admin: 05/05/20 08:13 Dose: 6 mg Documented by: Dextrose (Dextrose 50%-Water 25 Gm/50 Ml Disp.Syrin) 0 gm IV X1 PRN; Protocol PRN Reason: Hypoglycemia Finasteride (Finasteride 5 Mg Tablet) 5 mg PO DAILY [facility] Last Admin: 05/05/20 08:14 Dose: 5 mg Documented by: Glucagon (Glucagon 1 Mg/Ml Syringe) 1 mg IM .X1 PRN PRN Reason: Hypoglycemia Hydromorphone HCl (Hydromorphone 1 Mg/Ml Syringe) 1 mg IV Q4H PRN PRN PRN Reason: Pain Score 6-10 Remdesivir 100 mg/ Sodium (Chloride) 250 mls @ 125 mls/hr IV DAILY [facility] Stop: 05/07/20 11:59 Last Infusion: 05/05/20 12:52 Dose: Infused Documented by: Sodium Chloride () 250 mls @ 15 mls/hr IV .[id number] PRN PRN Reason: Saline Flush Last Infusion: 05/04/20 15:30 Dose: 0 mls/hr Documented by: Sodium Chloride () 250 mls @ 15 mls/hr IV .[id number] PRN PRN Reason: Additional IVPB Infusion Ceftriaxone Sodium 2 gm/ (Sodium Chloride) 50 mls @ 100 mls/hr IV Q24 [facility] Last Infusion: 05/05/20 17:28 Dose: Infused Documented by: Insulin Glargine (Insulin Glargine 100 Units/Ml Pen) 50 units SC 1100,2200 [facility] Last Admin: 05/05/20 21:04 Dose: 50 u Documented by: Insulin Human Lispro (Insulin Lispro 100 Unit/Ml Insuln.Pen) 0 unit SC ACHS [facility]; Protocol Last Admin: 05/05/20 21:03 Dose: 6 units Documented by: Insulin Human Lispro (Insulin Lispro 100 Unit/Ml Insuln.Pen) 20 unit SC BREAKFAST [facility] Last Admin: 05/05/20 08:11 Dose: 20 u Documented by: Insulin Human Lispro (Insulin Lispro 100 Unit/Ml Insuln.Pen) 20 unit SC DINNER [facility] Last Admin: 05/05/20 16:59 Dose: 20 u Documented by: Insulin Human Lispro (Insulin Lispro 100 Unit/Ml Insuln.Pen) 20 unit SC LUNCH [facility] Last Admin: 05/05/20 13:05 Dose: 20 u Documented by: Losartan Potassium (Losartan Potassium 50 Mg Tablet) 50 mg PO DAILY [facility] Last Admin: 05/05/20 08:13 Dose: 50 mg Documented by: Magnesium Hydroxide (Magnesium Hydroxide 30 Ml Udc) 30 ml PO DAILY PRN PRN PRN Reason: Constipation Melatonin (Melatonin 3 Mg Tablet) 3 mg PO QHS PRN PRN PRN Reason: INSOMNIA Last Admin: 05/05/20 22:10 Dose: 3 mg Documented by: Nitroglycerin (Nitroglycerin (Inpatient Use) 0.4 Mg Tab.Subl) 0.4 mg SUBLINGUAL Q5M PRN PRN Reason: CARDIAC/CHEST PAIN Ondansetron HCl (Ondansetron 4 Mg/2 Ml Vial) 4 mg IV Q8H PRN PRN PRN Reason: NAUSEA/VOMITING Oxycodone HCl (Oxycodone 5 Mg Tablet) 10 mg PO Q4H PRN PRN PRN Reason: Pain Score 4-5 Prochlorperazine Edisylate (Prochlorperazine 10 Mg/2 Ml Vial) 5 mg IV Q4H PRN PRN PRN Reason: Breakthrough nausea/vomiting Sodium Chloride (0.9% Saline Lock 10 Ml Syringe) 10 - 40 ml IV UD PRN PRN Reason: SALINE FLUSH Last Admin: 05/05/20 21:02 Dose: 10 ml Documented by: Sodium Chloride (Sodium Chloride 0.65% 1 [place].Btl) 2 spray NASAL TID PRN PRN PRN Reason: NASAL DRYNESS Tamsulosin HCl (Tamsulosin Hcl 0.4 Mg Capsule) 0.4 mg PO QHS KEERTHI Last Admin: 05/05/20 21:06 Dose: 0.4 mg Documented by: Medical Necessity - Tobacco Use Smoking Status: Never smoker Assessment/Plan All Active Problems Hyperglycemia due to diabetes mellitus (Acute) COVID-19 (Acute) Hypoxemia (Acute) Pulmonary embolism (Acute) Sepsis (Acute) History of cholecystectomy (Resolved) Shortness of breath (Acute) RECOMMENDATIONS: 1. Wean supplemental oxygen to maintain saturations at or above 90%. 2. Continue Decadron with plans to complete a 10-day treatment course. 3. Continue remdesivir to complete treatment course. Monitor liver and renal function accordingly. 4. Discontinue Pradaxa completely at discharge. Agree with transition to Eliquis. 5. Encourage incentive spirometer use and mobilize patient as tolerated. 6. Continue antimicrobials per ID recommendations. 7. Continue attempts at gentle diuresis as tolerated by hemodynamics and renal function. IMPRESSIONS: 1. Acute hypoxemic respiratory failure secondary to COVID-19 pneumonia and bilateral pulmonary emboli Plan to continue current supportive measures, including Decadron with plans to complete a 10-day treatment course. In addition, I would recommend that remdesivir also be continued. Given the patient's pulmonary emboli, plan to continue systemic anticoagulation with Eliquis. Plan to wean supplemental oxygen to maintain saturations at or above 90%. Given that the patient is now growing Haemophilus and Streptococcus from his sputum culture, recommend antimicrobials be initiated per ID recommendations. In addition, the patient will be started on gentle diuresis today. 2. Diabetes mellitus/hypertension/hyperlipidemia/BPH/obesity/paroxysmal atrial fibrillation Complicates care, management, recovery and prognosis. Recommend complete discontinuation of Pradaxa given high risk for bleeding complications. Continue home medications as indicated. This note was generated with [employer] dictation software. It may contain incorrect words, spelling, and punctuation that were not noted in checking the note before signing. Inpatient E&M: 73079 Subs Hosp L2
[2020-05-06] MEDS: Insulin Lispro 100 UNIT/ML INSULN.PEN SC ×4 (08:25→21:50)
[2020-05-06] MEDS: Insulin Lispro 100 UNIT/ML INSULN.PEN 20 UNIT SC ×3 (08:25→16:47)
[2020-05-06] MEDS: Losartan Potassium 50 MG Tablet PO (08:26)
[2020-05-06] MEDS: APIXABAN 5 MG TABLET 10 MG PO ×2 (08:27→21:46)
[2020-05-06] MEDS: Cyanocobalamin 500 MCG Tablet 1000 MCG PO (08:27)
[2020-05-06] MEDS: Finasteride 5 MG Tablet PO (08:27)
[2020-05-06] MEDS: Atenolol 25 MG Tablet 12.5 MG PO (08:27)
[2020-05-06] MEDS: dexAMETHasone 4 MG Tablet 6 MG PO (08:27)
[2020-05-06 08:46] LABS: Bedside Glucose 216 mg/dL (70-110)
[2020-05-06 09:07] LABS: Procalcitonin 0.16 ng/mL (0.00-0.09)
[2020-05-06] MEDS: Furosemide 40 MG/4 ML Vial IV (09:21)
[2020-05-06 12:26] LABS: Bedside Glucose 370 mg/dL (70-110)
[2020-05-06 12:37] LABS: Pathologist Review Reviewed
[2020-05-06 17:06] LABS: Bedside Glucose 343 mg/dL (70-110)
--- NOTE | 2020-05-06 21:15 | CPS ---
set up pt's home CPAP unit from home with 15 LPM O2 bleed in
[2020-05-06] MEDS: Tamsulosin HCl 0.4 MG Capsule PO (21:46)
[2020-05-06] MEDS: Atorvastatin Calcium 20 MG Tablet PO (21:46)
[2020-05-06] MEDS: Sodium Chloride 0.65% 1 SPRAY SPRAY.BTL 2 SPRAY NASAL (21:47)
[2020-05-06 22:10] LABS: Bedside Glucose 365 mg/dL (70-110)
[2020-05-06] MEDS: MELATONIN 3 MG TABLET PO (23:37)
[2020-05-06] MEDS: Acetaminophen 325 MG Tablet 650 MG PO (23:37)
[2020-05-07] VITALS (17 sets, daily range): BP systolic 106–134; BP diastolic 51–67; PULSE 51–80; RESP 12–24; TEMP 36–36.3; O2SAT 84–94
--- NOTE | 2020-05-07 06:36 | PCM.PN.PUL ---
Patient Problems: Active and Suspected Problems Hyperglycemia due to diabetes mellitus (Acute) COVID-19 (Acute) Hypoxemia (Acute) Pulmonary embolism (Acute) Sepsis (Acute) Shortness of breath (Acute) Intraperitoneal bleeding (Suspected) Subjective: The patient was seen and examined at the bedside this morning. Events from the last 24 hours have been reviewed. The patient is currently afebrile, hemodynamically stable and maintaining appropriate oxygen saturations on 15 L/min high flow nasal cannula. The patient remains on Eliquis, antimicrobials, Decadron, remdesivir and scheduled IV Lasix. Liver and renal function are stable. Objective: The patient's most recent lab work, culture data and imaging studies have all been personally reviewed. Sputum culture was positive for possible Haemophilus and group B streptococcus. - Physical Exam Vitals/I&O's: Vital Signs Temp Pulse Resp BP Pulse Ox 97.3 F L 51 L 18 131/67 H 94 05/07/20 03:42 05/07/20 04:04 05/07/20 03:42 05/07/20 03:42 05/07/20 03:42 Oxygen Flow Rate (L/min) 15 Oxygen Delivery Method Bi-pap Weight: 252 lb 10.396 oz Body Mass Index (BMI) 40.1 Finger Stick Blood Glucose 161 Intake and Output for Last 24 Hours 05/05/20 05/06/20 05/07/20 23:59 23:59 23:59 Intake Total 600 / 600 1550 / 1550 Output Total 875 / 875 2230 / 2230 200 / 200 Balance -275 / -275 -680 / -680 -200 / -200 General: Alert, Cooperative HEENT: Atraumatic, Normocephalic Oral: No Gingival or Mucosal Lesions/ Ulcerations Neck: Supple, No Nodes, Trachea Midline Lungs: No rhonchi, No wheeze, No rales, Diminished, Tachypneic Cardiovascular: Regular rate, Regular Rhythm Abdomen: Bowel Sounds Present, Soft, Non Tender, Obese Extremities: No clubbing, No cyanosis, No edema Skin: No breakdown Musculoskeletal: No Tenderness to Palpation of Joints or Extremities Lymphatic: No Cervical, Supraclavicular, or Inguinal Adenopathy Neurological: Cranial nerves II-XII grossly intact, Neuro grossly intact Psych/Mental Status: Normal Affect, Appropriate Labs (Last 48 Hours) 05/05/20 05/05/2021 06:15 06:15 07:56 WBC 3.6 L RBC 4.39 L Hgb 13.0 Hct 39.0 L MCV 88.8 MCH 29.6 MCHC 33.3 RDW Std Deviation 43.5 RDW Coeff of Taras 13.2 Plt Count 63 L MPV 11.6 Immature Gran % (Auto) 0.500 Neut % (Auto) 84.1 H Lymph % (Auto) 9.9 L Jack % (Auto) 5.5 Eos % (Auto) 0.0 Baso % (Auto) 0.0 Absolute Neuts (auto) 3.1 Absolute Lymphs (auto) 0.36 L Nucleated RBC % 0 Diff Path Review Reviewed Platelet Estimate SLT DEC Sodium 135 L Potassium 4.2 Chloride 103 Carbon Dioxide 28.0 Anion Gap 4 L BUN 26 H Creatinine 0.69 L Estim Creat Clear Calc 61.14 Est GFR (MDRD) Af Amer 145 Est GFR (MDRD) Non-Af 120 BUN/Creatinine Ratio 37.6 H Glucose 253 H Calcium 8.3 L Total Bilirubin 1.00 AST 33 ALT 28 Alkaline Phosphatase 62 B-Natriuretic Peptide Total Protein 6.0 L Albumin 2.1 L Globulin 3.9 Albumin/Globulin Ratio 0.5 L Procalcitonin POC Glucose 257 H 05/05/20 05/05/20 05/05/20 10:47 16:56 20:52 WBC RBC Hgb Hct MCV MCH MCHC RDW Std Deviation RDW Coeff of Taras Plt Count MPV Immature Gran % (Auto) Neut % (Auto) Lymph % (Auto) Jack % (Auto) Eos % (Auto) Baso % (Auto) Absolute Neuts (auto) Absolute Lymphs (auto) Nucleated RBC % Diff Path Review Platelet Estimate Sodium Potassium Chloride Carbon Dioxide Anion Gap BUN Creatinine Estim Creat Clear Calc Est GFR (MDRD) Af Amer Est GFR (MDRD) Non-Af BUN/Creatinine Ratio Glucose Calcium Total Bilirubin AST ALT Alkaline Phosphatase B-Natriuretic Peptide Total Protein Albumin Globulin Albumin/Globulin Ratio Procalcitonin POC Glucose 387 H 342 H 316 H 05/06/20 05/06/20 05/06/20 05:18 05:18 05:18 WBC 3.9 L RBC 4.32 L Hgb 13.2 Hct 38.2 L MCV 88.4 MCH 30.6 MCHC 34.6 RDW Std Deviation 42.6 RDW Coeff of Taras 13.1 Plt Count 70 L MPV 11.2 Immature Gran % (Auto) 0.500 Neut % (Auto) 81.6 H Lymph % (Auto) 8.9 L Jack % (Auto) 8.7 Eos % (Auto) 0.0 Baso % (Auto) 0.3 Absolute Neuts (auto) 3.2 Absolute Lymphs (auto) 0.35 L Nucleated RBC % 0 Diff Path Review Reviewed Platelet Estimate MOD DEC Sodium 137 Potassium 4.1 Chloride 104 Carbon Dioxide 25.0 Anion Gap 8 BUN 26 H Creatinine 0.69 L Estim Creat Clear Calc 61.14 Est GFR (MDRD) Af Amer 146 Est GFR (MDRD) Non-Af 120 BUN/Creatinine Ratio 37.7 H Glucose 228 H Calcium 8.0 L Total Bilirubin 0.90 AST 39 H ALT 39 Alkaline Phosphatase 67 B-Natriuretic Peptide 19.7 Total Protein 5.5 L Albumin 2.1 L Globulin 3.4 Albumin/Globulin Ratio 0.6 L Procalcitonin POC Glucose 05/06/20 05/06/20 05/06/20 05:18 08:19 11:33 WBC RBC Hgb Hct MCV MCH MCHC RDW Std Deviation RDW Coeff of Taras Plt Count MPV Immature Gran % (Auto) Neut % (Auto) Lymph % (Auto) Jack % (Auto) Eos % (Auto) Baso % (Auto) Absolute Neuts (auto) Absolute Lymphs (auto) Nucleated RBC % Diff Path Review Platelet Estimate Sodium Potassium Chloride Carbon Dioxide Anion Gap BUN Creatinine Estim Creat Clear Calc Est GFR (MDRD) Af Amer Est GFR (MDRD) Non-Af BUN/Creatinine Ratio Glucose Calcium Total Bilirubin AST ALT Alkaline Phosphatase B-Natriuretic Peptide Total Protein Albumin Globulin Albumin/Globulin Ratio Procalcitonin 0.16 H POC Glucose 216 H 370 H 05/06/20 05/06/20 16:44 21:41 WBC RBC Hgb Hct MCV MCH MCHC RDW Std Deviation RDW Coeff of Taras Plt Count MPV Immature Gran % (Auto) Neut % (Auto) Lymph % (Auto) Jack % (Auto) Eos % (Auto) Baso % (Auto) Absolute Neuts (auto) Absolute Lymphs (auto) Nucleated RBC % Diff Path Review Platelet Estimate Sodium Potassium Chloride Carbon Dioxide Anion Gap BUN Creatinine Estim Creat Clear Calc Est GFR (MDRD) Af Amer Est GFR (MDRD) Non-Af BUN/Creatinine Ratio Glucose Calcium Total Bilirubin AST ALT Alkaline Phosphatase B-Natriuretic Peptide Total Protein Albumin Globulin Albumin/Globulin Ratio Procalcitonin POC Glucose 343 H 365 H Microbiology 05/04/20 10:15 Sputum, Expectorated/Coughed Gram Stain - Final 05/04/20 10:15 Sputum, Expectorated/Coughed Respiratory Culture - Preliminary Haemophilus influenzae Streptococcus group B 05/03/20 08:45 Blood Culture (Wb) - Left Hand Bacteria Detection (PCR) - Final Staphylococcus epidermidis 05/03/20 08:45 Blood Culture (Wb) - Left Hand Blood Culture - Preliminary Staphylococcus epidermidis Clinical Impression(s) from Imaging Studies Chest X-Ray 05/03/20 08:55 IMPRESSION: Minimal increased markings at the left lung base with blunting of left costophrenic angle. There has been no change since prior study. Electronically Signed: Casimiro Marie MD at 9:09 EST , Service support , Chest CTA 05/03/20 09:36 IMPRESSION: Multiple bilateral pulmonary emboli involving branches of the lower lobe pulmonary arteries. Multiple bilateral pulmonary infiltrates as described. Splenomegaly. Electronically Signed: Casimiro Marie MD at 10:41 EST , Service support , Current Medications Acetaminophen (Acetaminophen 325 Mg Tablet) 650 mg PO Q6H PRN PRN PRN Reason: Pain Score 1-10/Temp > 100.7 F Last Admin: 05/06/20 23:37 Dose: 650 mg Documented by: Al Hydroxide/Mg Hydroxide (Mag Hydrox/Al Hydrox/Simeth 30 Ml Udc) 30 ml PO Q6H PRN PRN PRN Reason: Gastric Burning Albuterol Sulfate (Albuterol Ih 8.5 Gm (Proair) Inhaler (200 Puffs)) 2.5 puff INHALATION Q2H PRN PRN PRN Reason: Shortness of Breath/Wheezing Last Admin: 05/06/20 17:16 Dose: 2.5 puff Documented by: Apixaban (Apixaban 5 Mg Tablet) 10 mg PO BID [facility] Last Admin: 05/06/20 21:46 Dose: 10 mg Documented by: Atenolol (Atenolol 25 Mg Tablet) 12.5 mg PO DAILY [facility] [place] Last Admin: 05/06/20 08:27 Dose: 12.5 mg Documented by: Atorvastatin Calcium (Atorvastatin Calcium 20 Mg Tablet) 20 mg PO QHS [facility] [place] Last Admin: 05/06/20 21:46 Dose: 20 mg Documented by: Cholecalciferol (Cholecalciferol (Vit D3) 1,000 Unit (25mcg)) 1,000 unit PO BID [facility] [place] Last Admin: 05/06/20 21:46 Dose: 1,000 unit Documented by: Cyanocobalamin (Cyanocobalamin 500 Mcg Tablet) 1,000 mcg PO DAILY [facility] [place] Last Admin: 05/06/20 08:27 Dose: 1,000 mcg Documented by: Dexamethasone (Dexamethasone 4 Mg Tablet) 6 mg PO DAILY [facility] [place] Last Admin: 05/06/20 08:27 Dose: 6 mg Documented by: Dextrose (Dextrose 50%-Water 25 Gm/50 Ml Disp.Syrin) 0 gm IV X1 PRN; Protocol PRN Reason: Hypoglycemia Finasteride (Finasteride 5 Mg Tablet) 5 mg PO DAILY [facility] [place] Last Admin: 05/06/20 08:27 Dose: 5 mg Documented by: Furosemide (Furosemide 40 Mg/4 Ml Vial) 40 mg IV DAILY [facility] [place] Last Admin: 05/06/20 09:21 Dose: 40 mg Documented by: Glucagon (Glucagon 1 Mg/Ml Syringe) 1 mg IM .X1 PRN PRN Reason: Hypoglycemia Hydromorphone HCl (Hydromorphone 1 Mg/Ml Syringe) 1 mg IV Q4H PRN PRN PRN Reason: Pain Score 6-10 Remdesivir 100 mg/ Sodium (Chloride) 250 mls @ 125 mls/hr IV DAILY [facility] [place] Stop: 05/07/20 11:59 Last Infusion: 05/06/20 13:45 Dose: Infused Documented by: Sodium Chloride () 250 mls @ 15 mls/hr IV .[id number] PRN PRN Reason: Saline Flush Last Infusion: 05/04/20 15:30 Dose: 0 mls/hr Documented by: Sodium Chloride () 250 mls @ 15 mls/hr IV .[id number] PRN PRN Reason: Additional IVPB Infusion Ceftriaxone Sodium 2 gm/ (Sodium Chloride) 50 mls @ 100 mls/hr IV Q24 [facility] [place] Last Infusion: 05/06/20 09:20 Dose: Infused Documented by: Insulin Glargine (Insulin Glargine 100 Units/Ml Pen) 50 units SC 1100,2200 [facility] Last Admin: 05/06/20 21:49 Dose: 50 u Documented by: Insulin Human Lispro (Insulin Lispro 100 Unit/Ml Insuln.Pen) 0 unit SC ACHS [facility]; Protocol Last Admin: 05/06/20 21:50 Dose: 8 units Documented by: Insulin Human Lispro (Insulin Lispro 100 Unit/Ml Insuln.Pen) 20 unit SC BREAKFAST [facility] Last Admin: 05/06/20 08:25 Dose: 20 u Documented by: Insulin Human Lispro (Insulin Lispro 100 Unit/Ml Insuln.Pen) 20 unit SC DINNER [facility] [place] Last Admin: 05/06/20 16:47 Dose: 20 u Documented by: Insulin Human Lispro (Insulin Lispro 100 Unit/Ml Insuln.Pen) 20 unit SC LUNCH [facility] [place] Last Admin: 05/06/20 11:34 Dose: 20 u Documented by: Losartan Potassium (Losartan Potassium 50 Mg Tablet) 50 mg PO DAILY [facility] [place] Last Admin: 05/06/20 08:26 Dose: 50 mg Documented by: Magnesium Hydroxide (Magnesium Hydroxide 30 Ml Udc) 30 ml PO DAILY PRN PRN PRN Reason: Constipation Melatonin (Melatonin 3 Mg Tablet) 3 mg PO QHS PRN PRN PRN Reason: INSOMNIA Last Admin: 05/06/20 23:37 Dose: 3 mg Documented by: Nitroglycerin (Nitroglycerin (Inpatient Use) 0.4 Mg Tab.Subl) 0.4 mg SUBLINGUAL Q5M PRN PRN Reason: CARDIAC/CHEST PAIN Ondansetron HCl (Ondansetron 4 Mg/2 Ml Vial) 4 mg IV Q8H PRN PRN PRN Reason: NAUSEA/VOMITING Oxycodone HCl (Oxycodone 5 Mg Tablet) 10 mg PO Q4H PRN PRN PRN Reason: Pain Score 4-5 Prochlorperazine Edisylate (Prochlorperazine 10 Mg/2 Ml Vial) 5 mg IV Q4H PRN PRN PRN Reason: Breakthrough nausea/vomiting Sodium Chloride (0.9% Saline Lock 10 Ml Syringe) 10 - 40 ml IV UD PRN PRN Reason: SALINE FLUSH Last Admin: 05/05/20 21:02 Dose: 10 ml Documented by: Sodium Chloride (Sodium Chloride 0.65% 1 [place].Btl) 2 spray NASAL TID PRN PRN PRN Reason: NASAL DRYNESS Last Admin: 05/06/20 21:47 Dose: 2 spray Documented by: Tamsulosin HCl (Tamsulosin Hcl 0.4 Mg Capsule) 0.4 mg PO QHS [facility] Last Admin: 05/06/20 21:46 Dose: 0.4 mg Documented by: Medical Necessity - Tobacco Use Smoking Status: Never smoker Assessment/Plan All Active Problems Hyperglycemia due to diabetes mellitus (Acute) COVID-19 (Acute) Hypoxemia (Acute) Pulmonary embolism (Acute) Sepsis (Acute) History of cholecystectomy (Resolved) Shortness of breath (Acute) RECOMMENDATIONS: 1. Wean supplemental oxygen to maintain saturations at or above 90%. 2. Continue Decadron with plans to complete a 10-day treatment course. 3. Continue remdesivir to complete treatment course. Monitor liver and renal function accordingly. 4. Discontinue Pradaxa completely at discharge. Agree with transition to Eliquis. 5. Encourage incentive spirometer use and mobilize patient as tolerated. 6. Continue antimicrobials per ID recommendations. 7. Continue attempts at gentle diuresis as tolerated by hemodynamics and renal function. IMPRESSIONS: 1. Acute hypoxemic respiratory failure secondary to COVID-19 pneumonia and bilateral pulmonary emboli Plan to continue current supportive measures, including Decadron with plans to complete a 10-day treatment course. In addition, I would recommend that remdesivir also be continued. Given the patient's pulmonary emboli, plan to continue systemic anticoagulation with Eliquis. Plan to wean supplemental oxygen to maintain saturations at or above 90%. Given that the patient is now growing Haemophilus and Streptococcus from his sputum culture, recommend antimicrobials be initiated per ID recommendations. In addition, the patient will be continued on IV diuretic therapy as tolerated by hemodynamics and renal function. 2. Diabetes mellitus/hypertension/hyperlipidemia/BPH/obesity/paroxysmal atrial fibrillation Complicates care, management, recovery and prognosis. Recommend complete discontinuation of Pradaxa given high risk for bleeding complications. Continue home medications as indicated. This note was generated with [employer] software. It may contain incorrect words, spelling, and punctuation that were not noted in checking the note before signing. Inpatient E&M: 42993 Subs Hosp L2
[2020-05-07 07:16] LABS: Absolute Lymphocyte Count 0.38 X10^3/uL (0.83-4.51); Absolute Neutrophil Count 3.1 X10^3/uL (2.0-7.7); Basophil# 0.01 X10^3/uL; Basophil% 0.3 % (0-1); Hematocrit 40.2 % (40-54); Hemoglobin 13.1 g/dL (13.0-16.5); Lymphocyte # 0.38 X10^3/ul (4.0); Lymphocyte % 9.7 % (19-41); Mean Corp Hgb Conc 32.6 g/dL (32-36); Mean Corpuscular Hgb 29.4 pg (27.0-32.0); Mean Corpuscular Volume 90.3 fL (80-94); Monocyte% 10.2 % (0-10); NRBC Flagged by Analyzer 0 % (0-5); Neutrophil # 3.08 X10^3/uL (2.7-7.7); Neutrophil % 78.8 % (47-70); POSITIVE COUNT YES; POSITIVE DIFFERENTIAL YES; Platelet Count 68 K/mm3 (150-450); RBC Distribution Width CV 13.8 % (11.6-14.6); RBC Distribution Width SD 44.2 fl (35.1-43.9); Red Blood Count 4.45 M/mm3 (4.6-6.2); White Blood Count 3.9 K/mm3 (4.4-11.0)
--- NOTE | 2020-05-07 07:32 | PN_ITS ---
Patient Problems: Active and Suspected Problems Hyperglycemia due to diabetes mellitus (Acute) COVID-19 (Acute) Hypoxemia (Acute) Pulmonary embolism (Acute) Sepsis (Acute) Shortness of breath (Acute) Intraperitoneal bleeding (Suspected) Reason for Visit: Acute hypoxic respiratory failure Bilateral multiple PEs Acute COVID-19 pneumonitis Subjective: Patient seen states he thinks his condition is getting better however still remains on high flow oxygen. Blood glucose remains uncontrolled subsequent adjustment made to patient insulin regimen 05/07/2020; no significant improvement in patient's clinical condition with patient requiring BiPAP during the night. Cultures obtained on admission results are as below Microbiology 05/04/20 10:15 Gram Stain - Final Sputum, Expectorated/Coughed Respiratory Culture - Preliminary Haemophilus influenzae Streptococcus group B 05/03/20 08:45 Bacteria Detection (PCR) - Final Blood Culture (Wb) - Left Hand Staphylococcus epidermidis Blood Culture - Preliminary Staphylococcus epidermidis Objective: GENERAL: cooperative HEENT: Atraumatic; EYES; Anicteric, Normal Conjunctiva NECK; supple, normal thyroid, RESPIRATORY: Diminished to auscultation CARDIOVASCULAR: Regular S1 S2, GI: soft, normoactive bowel sounds, : No Renal angle tenderness; EXTREMITIES: No edema, no clubbing, MUSCULOSKELETAL: no muscle waisting NEURO: Awake; no lateralizing signs. SKIN: No Rash PSYCH; Flat affect Vitals/I&O's: Vital Signs Temp Pulse Resp BP Pulse Ox 97.3 F L 51 L 18 131/67 H 90 05/07/20 03:42 05/07/20 04:04 05/07/20 03:42 05/07/20 03:42 05/07/20 07:20 Oxygen Flow Rate (L/min) 15 Oxygen Delivery Method Nasal Cannula Weight: 114.6 kg Body Mass Index (BMI) 40.1 Finger Stick Blood Glucose 161 Intake and Output for Last 24 Hours 05/05/20 05/06/20 05/07/20 23:59 23:59 23:59 Intake Total 600 / 600 1550 / 1550 200 / 200 Output Total 875 / 875 2230 / 2230 500 / 500 Balance -275 / -275 -680 / -680 -300 / -300 Microbiology Past 72 Hours 05/04/20 10:15 Sputum, Expectorated/Coughed Gram Stain - Final 05/04/20 10:15 Sputum, Expectorated/Coughed Respiratory Culture - Preliminary Haemophilus influenzae Streptococcus group B 05/03/20 08:45 Blood Culture (Wb) - Left Hand Bacteria Detection (PCR) - Final Staphylococcus epidermidis 05/03/20 08:45 Blood Culture (Wb) - Left Hand Blood Culture - Preliminary Staphylococcus epidermidis Laboratory Results 05/06/20 05:18: Diff Path Review Reviewed 05/06/20 05:18: Sodium 137, Potassium 4.1, Chloride 104, Carbon Dioxide 25.0, Anion Gap 8, BUN 26 H, Creatinine 0.69 L, Estim Creat Clear Calc 61.14, Est GFR (MDRD) Af Amer 146, Est GFR (MDRD) Non-Af 120, BUN/Creatinine Ratio 37.7 H, Glucose 228 H, Calcium 8.0 L, Total Bilirubin 0.90, AST 39 H, ALT 39, Alkaline Phosphatase 67, Total Protein 5.5 L, Albumin 2.1 L, Globulin 3.4, Albumin/Globulin Ratio 0.6 L 05/06/20 05:18: Procalcitonin 0.16 H 05/06/20 08:19: POC Glucose 216 H 05/06/20 11:33: POC Glucose 370 H 05/06/20 16:44: POC Glucose 343 H 05/06/20 21:41: POC Glucose 365 H 05/07/20 06:30: WBC Pending, RBC Pending, Hgb Pending, Hct Pending, MCV Pending, MCH Pending, MCHC Pending, RDW Std Deviation Pending, RDW Coeff of Taras Pending, Plt Count Pending, Neut % (Auto) Pending, Absolute Neuts (auto) Pending 05/07/20 06:30: Sodium Pending, Potassium Pending, Chloride Pending, Carbon Dioxide Pending, Anion Gap Pending, BUN Pending, Creatinine Pending, Est GFR (MDRD) Af Amer Pending, Est GFR (MDRD) Non-Af Pending, BUN/Creatinine Ratio Pending, Glucose Pending, Calcium Pending, Total Bilirubin Pending, AST Pending, ALT Pending, Alkaline Phosphatase Pending, Total Protein Pending, Albumin Pend ing Current Medications Acetaminophen (Acetaminophen 325 Mg Tablet) 650 mg PO Q6H PRN PRN PRN Reason: Pain Score 1-10/Temp > 100.7 F Last Admin: 01/28/21 23:37 Dose: 650 mg Documented by: Al Hydroxide/Mg Hydroxide (Mag Hydrox/Al Hydrox/Simeth 30 Ml Udc) 30 ml PO Q6H PRN PRN PRN Reason: Gastric Burning Albuterol Sulfate (Albuterol Ih 8.5 Gm (Proair) Inhaler (200 Puffs)) 2.5 puff INHALATION Q2H PRN PRN PRN Reason: Shortness of Breath/Wheezing Last Admin: 05/06/20 17:16 Dose: 2.5 puff Documented by: Apixaban (Apixaban 5 Mg Tablet) 10 mg PO BID [facility] Last Admin: 05/06/20 21:46 Dose: 10 mg Documented by: Atenolol (Atenolol 25 Mg Tablet) 12.5 mg PO DAILY [facility] Last Admin: 05/06/20 08:27 Dose: 12.5 mg Documented by: Atorvastatin Calcium (Atorvastatin Calcium 20 Mg Tablet) 20 mg PO QHS [facility] Last Admin: 05/06/20 21:46 Dose: 20 mg Documented by: Cholecalciferol (Cholecalciferol (Vit D3) 1,000 Unit (25mcg)) 1,000 unit PO BID [facility] Last Admin: 05/06/20 21:46 Dose: 1,000 unit Documented by: Cyanocobalamin (Cyanocobalamin 500 Mcg Tablet) 1,000 mcg PO DAILY [facility] Last Admin: 05/06/20 08:27 Dose: 1,000 mcg Documented by: Dexamethasone (Dexamethasone 4 Mg Tablet) 6 mg PO DAILY [facility] Last Admin: 05/06/20 08:27 Dose: 6 mg Documented by: Dextrose (Dextrose 50%-Water 25 Gm/50 Ml Disp.Syrin) 0 gm IV X1 PRN; Protocol PRN Reason: Hypoglycemia Finasteride (Finasteride 5 Mg Tablet) 5 mg PO DAILY [facility] Last Admin: 05/06/20 08:27 Dose: 5 mg Documented by: Furosemide (Furosemide 40 Mg/4 Ml Vial) 40 mg IV DAILY [facility] Last Admin: 05/06/20 09:21 Dose: 40 mg Documented by: Glucagon (Glucagon 1 Mg/Ml Syringe) 1 mg IM .X1 PRN PRN Reason: Hypoglycemia Hydromorphone HCl (Hydromorphone 1 Mg/Ml Syringe) 1 mg IV Q4H PRN PRN PRN Reason: Pain Score 6-10 Remdesivir 100 mg/ Sodium (Chloride) 250 mls @ 125 mls/hr IV DAILY [facility] Stop: 05/07/20 11:59 Last Infusion: 05/06/20 13:45 Dose: Infused Documented by: Sodium Chloride () 250 mls @ 15 mls/hr IV .[id number] PRN PRN Reason: Saline Flush Last Infusion: 05/04/20 15:30 Dose: 0 mls/hr Documented by: Sodium Chloride () 250 mls @ 15 mls/hr IV .[id number] PRN PRN Reason: Additional IVPB Infusion Ceftriaxone Sodium 2 gm/ (Sodium Chloride) 50 mls @ 100 mls/hr IV Q24 [facility] Last Infusion: 05/06/20 09:20 Dose: Infused Documented by: Insulin Glargine (Insulin Glargine 100 Units/Ml Pen) 50 units SC 1100,2200 [facility] Last Admin: 05/06/20 21:49 Dose: 50 u Documented by: Insulin Human Lispro (Insulin Lispro 100 Unit/Ml Insuln.Pen) 0 unit SC ACHS [facility]; Protocol Last Admin: 05/06/20 21:50 Dose: 8 units Documented by: Insulin Human Lispro (Insulin Lispro 100 Unit/Ml Insuln.Pen) 20 unit SC BREAKFAST [facility] Last Admin: 05/06/20 08:25 Dose: 20 u Documented by: Insulin Human Lispro (Insulin Lispro 100 Unit/Ml Insuln.Pen) 20 unit SC DINNER [facility] Last Admin: 05/06/20 16:47 Dose: 20 u Documented by: Insulin Human Lispro (Insulin Lispro 100 Unit/Ml Insuln.Pen) 20 unit SC LUNCH [facility] Last Admin: 05/06/20 11:34 Dose: 20 u Documented by: Losartan Potassium (Losartan Potassium 50 Mg Tablet) 50 mg PO DAILY [facility] Last Admin: 05/06/20 08:26 Dose: 50 mg Documented by: Magnesium Hydroxide (Magnesium Hydroxide 30 Ml Udc) 30 ml PO DAILY PRN PRN PRN Reason: Constipation Melatonin (Melatonin 3 Mg Tablet) 3 mg PO QHS PRN PRN PRN Reason: INSOMNIA Last Admin: 05/06/20 23:37 Dose: 3 mg Documented by: Nitroglycerin (Nitroglycerin (Inpatient Use) 0.4 Mg Tab.Subl) 0.4 mg SUBLINGUAL Q5M PRN PRN Reason: CARDIAC/CHEST PAIN Ondansetron HCl (Ondansetron 4 Mg/2 Ml Vial) 4 mg IV Q8H PRN PRN PRN Reason: NAUSEA/VOMITING Oxycodone HCl (Oxycodone 5 Mg Tablet) 10 mg PO Q4H PRN PRN PRN Reason: Pain Score 4-5 Prochlorperazine Edisylate (Prochlorperazine 10 Mg/2 Ml Vial) 5 mg IV Q4H PRN PRN PRN Reason: Breakthrough nausea/vomiting Sodium Chloride (0.9% Saline Lock 10 Ml Syringe) 10 - 40 ml IV UD PRN PRN Reason: SALINE FLUSH Last Admin: 05/05/20 21:02 Dose: 10 ml Documented by: Sodium Chloride (Sodium Chloride 0.65% 1 [place].Btl) 2 spray NASAL TID PRN PRN PRN Reason: NASAL DRYNESS Last Admin: 05/06/20 21:47 Dose: 2 spray Documented by: Tamsulosin HCl (Tamsulosin Hcl 0.4 Mg Capsule) 0.4 mg PO QHS [facility] Last Admin: 05/06/20 21:46 Dose: 0.4 mg Documented by: STROKE Vital Signs/Narrative: Vital Signs Temp Pulse Resp BP Pulse Ox 05/07/20 07:20 90 05/07/20 04:04 51 L 05/07/20 03:42 97.3 F L 54 L 18 131/67 H 94 Medical Necessity - Tobacco Use Smoking Status: Never smoker Assessment/Plan All Active Problems Hyperglycemia due to diabetes mellitus (Acute) COVID-19 (Acute) Hypoxemia (Acute) Pulmonary embolism (Acute) Sepsis (Acute) History of cholecystectomy (Resolved) Shortness of breath (Acute) The patient is a 69 year old M recently diagnosed with COVID-19 who presented with progressive shortness of breath. Patient in addition did complain of headache fatigue fever and chills. Imaging studies obtained on admission demonstrated Multiple bilateral pulmonary emboli involving branches of the lower lobe pulmonary arteries as well as multiple bilateral pulmonary infiltrates 1. Acute hypoxic respiratory failure ?Secondary to acute COVID-19 pneumonia with superimposed bilateral pulmonary embolism and infiltrate. Admitted to the cohort floor. Patient is on Decadron did continue in addition patient was placed on supplemental oxygen titrated to keep saturation greater than 90 with consultation placed to both pulmonary medicine as well as infectious disease - 05/04/2020. Patient was admitted to monitored bed. Was started on heparin drip discontinued due to drop in his platelet count to switch to Eliquis. Was also seen in consultation by Dr. Chowdhury with infectious disease did start patient on remdesivir. Patient oxygen requirements increasing currently on 8 L at rest ?05/05/2020; patient seen still requires high flow oxygen -05/06/2020; Patient seen states he thinks his condition is getting better however still remains on high flow oxygen. -05/07/2020; 05/07/2020; no significant improvement in patient's clinical condition with patient requiring BiPAP during the night. patient sputum cultures grew Haemophilus influenzae Streptococcus group B Rocephin added to patient's therapy. Blood cultures positive for staph epi thought to be contaminant 2. Acute COVID-19 pneumonitis ?Management as discussed above -05/07/2020; patient sputum cultures grew Haemophilus influenzae Streptococcus group B Rocephin added to patient's therapy. Blood cultures positive for staph epi thought to be contaminant 3. Covid induced hypercoagulable state ?Patient presented with bilateral pulmonary embolism despite being on systemic anticoagulation with Pradaxa. Pradaxa discontinued patient started on heparin 4. Paroxysmal A. fib ?Rate controlled on systemic anticoagulation with Pradaxa which is being held in view of above 5. Diabetes mellitus type II -Controlled with hyperglycemia,patient's oral hypoglycemics held. Placed on long acting insulin, Accu-Cheks a.c. and at bedtime and covered with sliding scale insulin -05/06/2020; Blood glucose remains uncontrolled subsequent adjustment made to patient insulin regimen 6. Hypertension - Blood pressure controlled, home medications continued with dose adjustment as needed 7. Dyslipidemia -Patient is on statin therapy, continued at home dose 8. BPH ?Patient is on tamsulosin did continue 9. Morbid obesity - With a BMI of 46.2 patient was counseled on weight reduction 10. Thrombocytopenia ?Heparin drip discontinued Inpatient E&M: [id number] [facility] H[facility] L3
[2020-05-07 07:41] LABS: Differential Indicated SCAN CRITERIA MET
[2020-05-07 07:42] LABS: Platelet Estimate MOD DEC (ADEQ)
[2020-05-07] MEDS: Atenolol 25 MG Tablet 12.5 MG PO (08:01)
[2020-05-07] MEDS: Furosemide 40 MG/4 ML Vial IV (08:01)
[2020-05-07] MEDS: dexAMETHasone 4 MG Tablet 6 MG PO (08:01)
[2020-05-07] MEDS: Finasteride 5 MG Tablet PO (08:01)
[2020-05-07] MEDS: APIXABAN 5 MG TABLET 10 MG PO ×2 (08:01→20:24)
[2020-05-07] MEDS: Losartan Potassium 50 MG Tablet PO (08:02)
[2020-05-07] MEDS: Cyanocobalamin 500 MCG Tablet 1000 MCG PO (08:02)
[2020-05-07] MEDS: Insulin Lispro 100 UNIT/ML INSULN.PEN SC ×4 (08:03→23:13)
[2020-05-07] MEDS: Insulin Lispro 100 UNIT/ML INSULN.PEN 20 UNIT SC ×3 (08:03→16:16)
[2020-05-07 08:05] LABS: ALB/GLOB Ratio 0.6 RATIO (0.9-2.4); AST(SGOT) 53 U/L (15-37); Alanine Aminotransfer ALT/SGPT 46 U/L (16-61); Albumin, Serum 1.9 g/dL (3.2-5.0); Alkaline Phosphatase 89 U/L (45-117); Anion Gap 7 (5-15); BUN 28 mg/dL (7-18); BUN/Creat Ratio 40.9 RATIO (10-20); Calcium,Total 8.1 mg/dL (8.5-10.1); Chloride 106 mmol/L (98-107); Creatinine, Serum 0.68 mg/dL (0.70-1.30); EST Glomerular Filtration Rate 121 mL/min (>60); Est Glom Filt Rate - Afr Amer 146 mL/min (>60); Estimated Creatinine Clearance 61.14 ml/min; Globulin 3.4 g/dL (2.2-4.2); Glucose 284 mg/dL (74-106); Potassium 4.6 mmol/L (3.5-5.1); Protein, Total 5.3 g/dL (6.4-8.2); Sodium Level 136 mmol/L (136-145)
[2020-05-07 08:41] LABS: Bedside Glucose 284 mg/dL (70-110)
[2020-05-07 11:56] LABS: Bedside Glucose 337 mg/dL (70-110)
--- NOTE | 2020-05-07 15:51 | PN.ID_ITS ---
Patient Problems: Active and Suspected Problems Hyperglycemia due to diabetes mellitus (Acute) COVID-19 (Acute) Hypoxemia (Acute) Pulmonary embolism (Acute) Sepsis (Acute) Shortness of breath (Acute) Intraperitoneal bleeding (Suspected) Subjective: Feeling better, less sputum, no fever - Physical Exam Vitals/I&O's: Vital Signs Temp Pulse Resp BP Pulse Ox 97.1 F L 55 L 20 H 106/54 L 88 05/07/20 13:00 05/07/20 13:00 05/07/20 13:00 05/07/20 13:00 05/07/20 13:00 Oxygen Flow Rate (L/min) 14 Oxygen Delivery Method Nasal Cannula Weight: 114.6 kg Body Mass Index (BMI) 40.1 Finger Stick Blood Glucose 161 Intake and Output for Last 24 Hours 05/05/20 05/06/20 05/07/20 23:59 23:59 23:59 Intake Total 600 / 600 1550 / 1550 500 / 500 Output Total 875 / 875 2230 / 2230 500 / 500 Balance -275 / -275 -680 / -680 0 / 0 General: Alert, Cooperative, No apparent distress Lungs: Diminished Cardiovascular: Regular rate, Regular Rhythm Abdomen: Soft, Non Tender, Non-Distended Skin: No rashes Microbiology Past 72 Hours 05/04/20 10:15 Sputum, Expectorated/Coughed Gram Stain - Final 05/04/20 10:15 Sputum, Expectorated/Coughed Respiratory Culture - Final Haemophilus influenzae Streptococcus agalactiae (B) 05/03/20 08:45 Blood Culture (Wb) - Left Hand Bacteria Detection (PCR) - Final Staphylococcus epidermidis 05/03/20 08:45 Blood Culture (Wb) - Left Hand Blood Culture - Preliminary Staphylococcus epidermidis Laboratory Results 05/06/20 16:44: POC Glucose 343 H 05/06/20 21:41: POC Glucose 365 H 05/07/20 06:30: WBC 3.9 L, RBC 4.45 L, Hgb 13.1, Hct 40.2, MCV 90.3, MCH 29.4, MCHC 32.6 D, RDW Std Deviation 44.2 H, RDW Coeff of Taras 13.8, Plt Count 68 L, MPV 11.0, Immature Gran % (Auto) 1.000 H, Neut % (Auto) 78.8 H, Lymph % (Auto) 9 .7 L, [place] % (Auto) 10.2 H, Eos % (Auto) 0.0, Baso % (Auto) 0.3, Absolute Neuts (auto) 3.1, Absolute Lymphs (auto) 0.38 L, Nucleated RBC % 0, Platelet Estimate MOD 05/07/20 06:30: Sodium 136, Potassium 4.6, Chloride 106, Carbon Dioxide 23.0, Anion Gap 7, BUN 28 H, Creatinine 0.68 L, Estim Creat Clear Calc 61.14, Est GFR (MDRD) Af Amer 146, Est GFR (MDRD) Non-Af 121, BUN/Creatinine Ratio 40.9 H, Glucose 284 H, Calcium 8.1 L, Total Bilirubin 1.00, AST 53 H, ALT 46, Alkaline Phosphatase 89, Total Protein 5.3 L, Albumin 1.9 L, Globulin 3.4, Albumin/Globulin Ratio 0.6 L 05/07/20 07:55: POC Glucose 284 H 05/07/20 11:47: POC Glucose 337 H Current Medications Acetaminophen (Acetaminophen 325 Mg Tablet) 650 mg PO Q6H PRN PRN PRN Reason: Pain Score 1-10/Temp > 100.7 F Last Admin: 05/06/20 23:37 Dose: 650 mg Documented by: Al Hydroxide/Mg Hydroxide (Mag Hydrox/Al Hydrox/Simeth 30 Ml Udc) 30 ml PO Q6H PRN PRN PRN Reason: Gastric Burning Albuterol Sulfate (Albuterol Ih 8.5 Gm (Proair) Inhaler (200 Puffs)) 2.5 puff INHALATION Q2H PRN PRN PRN Reason: Shortness of Breath/Wheezing Last Admin: 05/06/20 17:16 Dose: 2.5 puff Documented by: Apixaban (Apixaban 5 Mg Tablet) 10 mg PO BID [facility] Last Admin: 05/07/20 08:01 Dose: 10 mg Documented by: Atenolol (Atenolol 25 Mg Tablet) 12.5 mg PO DAILY [facility] Last Admin: 05/07/20 08:01 Dose: 12.5 mg Documented by: Atorvastatin Calcium (Atorvastatin Calcium 20 Mg Tablet) 20 mg PO QHS [facility] Last Admin: 05/06/20 21:46 Dose: 20 mg Documented by: Cholecalciferol (Cholecalciferol (Vit D3) 1,000 Unit (25mcg)) 1,000 unit PO BID [facility] Last Admin: 05/07/20 08:02 Dose: 1,000 unit Documented by: Cyanocobalamin (Cyanocobalamin 500 Mcg Tablet) 1,000 mcg PO DAILY [facility] Last Admin: 05/07/20 08:02 Dose: 1,000 mcg Documented by: Dexamethasone (Dexamethasone 4 Mg Tablet) 6 mg PO DAILY [facility] Last Admin: 05/07/20 08:01 Dose: 6 mg Documented by: Dextrose (Dextrose 50%-Water 25 Gm/50 Ml Disp.Syrin) 0 gm IV X1 PRN; Protocol PRN Reason: Hypoglycemia Finasteride (Finasteride 5 Mg Tablet) 5 mg PO DAILY [facility] Last Admin: 05/07/20 08:01 Dose: 5 mg Documented by: Furosemide (Furosemide 40 Mg/4 Ml Vial) 40 mg IV DAILY [facility] Last Admin: 05/07/20 08:01 Dose: 40 mg Documented by: Glucagon (Glucagon 1 Mg/Ml Syringe) 1 mg IM .X1 PRN PRN Reason: Hypoglycemia Hydromorphone HCl (Hydromorphone 1 Mg/Ml Syringe) 1 mg IV Q4H PRN PRN PRN Reason: Pain Score 6-10 Sodium Chloride () 250 mls @ 15 mls/hr IV .[id number] PRN PRN Reason: Saline Flush Last Infusion: 05/04/20 15:30 Dose: 0 mls/hr Documented by: Sodium Chloride () 250 mls @ 15 mls/hr IV .[id number] PRN PRN Reason: Additional IVPB Infusion Ceftriaxone Sodium 2 gm/ (Sodium Chloride) 50 mls @ 100 mls/hr IV Q24 [facility] Last Infusion: 05/07/20 08:44 Dose: Infused Documented by: Insulin Glargine (Insulin Glargine 100 Units/Ml Pen) 50 units SC 1100,2200 [facility] Last Admin: 05/07/20 12:49 Dose: 50 u Documented by: Insulin Human Lispro (Insulin Lispro 100 Unit/Ml Insuln.Pen) 0 unit SC ACHS [facility]; Protocol Last Admin: 05/07/20 12:55 Dose: 8 units Documented by: Insulin Human Lispro (Insulin Lispro 100 Unit/Ml Insuln.Pen) 20 unit SC BREAKFAST [facility] Last Admin: 05/07/20 08:03 Dose: 20 u Documented by: Insulin Human Lispro (Insulin Lispro 100 Unit/Ml Insuln.Pen) 20 unit SC DINNER [facility] Last Admin: 05/06/20 16:47 Dose: 20 u Documented by: Insulin Human Lispro (Insulin Lispro 100 Unit/Ml Insuln.Pen) 20 unit SC LUNCH [facility] Last Admin: 05/07/20 12:53 Dose: 20 u Documented by: Losartan Potassium (Losartan Potassium 50 Mg Tablet) 50 mg PO DAILY [facility] Last Admin: 05/07/20 08:02 Dose: 50 mg Documented by: Magnesium Hydroxide (Magnesium Hydroxide 30 Ml Udc) 30 ml PO DAILY PRN PRN PRN Reason: Constipation Melatonin (Melatonin 3 Mg Tablet) 3 mg PO QHS PRN PRN PRN Reason: INSOMNIA Last Admin: 05/06/20 23:37 Dose: 3 mg Documented by: Nitroglycerin (Nitroglycerin (Inpatient Use) 0.4 Mg Tab.Subl) 0.4 mg SUBLINGUAL Q5M PRN PRN Reason: CARDIAC/CHEST PAIN Ondansetron HCl (Ondansetron 4 Mg/2 Ml Vial) 4 mg IV Q8H PRN PRN PRN Reason: NAUSEA/VOMITING Oxycodone HCl (Oxycodone 5 Mg Tablet) 10 mg PO Q4H PRN PRN PRN Reason: Pain Score 4-5 Prochlorperazine Edisylate (Prochlorperazine 10 Mg/2 Ml Vial) 5 mg IV Q4H PRN PRN PRN Reason: Breakthrough nausea/vomiting Sodium Chloride (0.9% Saline Lock 10 Ml Syringe) 10 - 40 ml IV UD PRN PRN Reason: SALINE FLUSH Last Admin: 05/05/20 21:02 Dose: 10 ml Documented by: Sodium Chloride (Sodium Chloride 0.65% 1 [place].Btl) 2 spray NASAL TID PRN PRN PRN Reason: NASAL DRYNESS Last Admin: 05/06/20 21:47 Dose: 2 spray Documented by: Tamsulosin HCl (Tamsulosin Hcl 0.4 Mg Capsule) 0.4 mg PO QHS [facility] Last Admin: 05/06/20 21:46 Dose: 0.4 mg Documented by: Medical Necessity - Tobacco Use Smoking Status: Never smoker Route of nutrition/ use of supplements: [] Nutritional Intake: [] IV Site: [] Rao Catheter: [] - Assessment/Plan Antibiotics: [] Assessment/Plan: [] Active and Suspected Problems Hyperglycemia due to diabetes mellitus (Acute) COVID-19 (Acute) Hypoxemia (Acute) Pulmonary embolism (Acute) Sepsis (Acute) Shortness of breath (Acute) Intraperitoneal bleeding (Suspected) covid with hypoxia and PEs - sx started 04/23, (+) covid as an outpt. with cough, recommended she get tested and quarantine. On dex, anticoagulation, and remdesivir. 1 of 2 bcx with CoNS, consistent with contaminant. Sputum with haemophilus and strep, cont ceftriaxone. Feeling better. Still sats in mid 80s on 13L with exertion. Will follow
--- NOTE | 2020-05-07 20:16 | NURSING ---
montyn,mariana aware, contacting hospitalist. this rn remains at bedside
[2020-05-07] MEDS: Atorvastatin Calcium 20 MG Tablet PO (20:23)
[2020-05-07] MEDS: Tamsulosin HCl 0.4 MG Capsule PO (20:23)
[2020-05-07] MEDS: MELATONIN 3 MG TABLET PO (20:26)
[2020-05-07 21:41] LABS: Bedside Glucose 343 mg/dL (70-110)
[2020-05-07] MEDS: LORazepam 2 MG/ML Syringe 0.5 MG IV (22:53)
[2020-05-07] MEDS: 0.9% Saline Lock 10 ML Syringe IV (22:54)
[2020-05-07] MEDS: Acetaminophen 325 MG Tablet 650 MG PO (23:14)
[2020-05-07 23:41] LABS: Bedside Glucose 301 mg/dL (70-110)
[2020-05-08] VITALS (14 sets, daily range): BP systolic 110–149; BP diastolic 49–70; PULSE 55–64; RESP 12–26; TEMP 36–36.6; O2SAT 86–99
[2020-05-08] MEDS: LORazepam 2 MG/ML Syringe 0.5 MG IV ×2 (03:23→23:15)
[2020-05-08] MEDS: 0.9% Saline Lock 10 ML Syringe IV ×3 (03:24→23:15)
--- NOTE | 2020-05-08 05:52 | PCM.PN.PUL ---
Patient Problems: Active and Suspected Problems Hyperglycemia due to diabetes mellitus (Acute) COVID-19 (Acute) Hypoxemia (Acute) Pulmonary embolism (Acute) Sepsis (Acute) Shortness of breath (Acute) Intraperitoneal bleeding (Suspected) Subjective: The patient was seen and examined at the bedside this morning. Events from the last 24 hours have been reviewed. The patient is currently afebrile, hemodynamically stable and maintaining appropriate oxygen saturations on Airvo heated high flow oxygen with an FiO2 requirement of 91%. The patient has completed his treatment course of remdesivir. He remains systemically anticoagulated on Eliquis. The patient also remains on antimicrobials, Decadron and scheduled IV Lasix. He is currently documented to be overall net +700 mL for the hospital admission. Objective: The patient's most recent lab work, culture data and imaging studies have all been personally reviewed. Sputum culture was positive for possible Haemophilus and group B streptococcus. - Physical Exam Vitals/I&O's: Vital Signs Temp Pulse Resp BP Pulse Ox 96.8 F L 59 L 24 H 149/66 H 89 05/08/20 05:23 05/08/20 05:31 05/08/20 05:31 05/08/20 05:23 05/08/20 05:31 Oxygen Flow Rate (L/min) 15 Oxygen Delivery Method Airvo Weight: 252 lb 10.396 oz Body Mass Index (BMI) 40.1 Finger Stick Blood Glucose 161 Intake and Output for Last 24 Hours 05/06/20 05/07/20 05/08/20 23:59 23:59 23:59 Intake Total 1550 / 1550 1550 / 1800 550 / 550 Output Total 2230 / 2230 1200 / 1700 1000 / 1000 Balance -680 / -680 350 / 100 -450 / -450 General: Alert, Cooperative HEENT: Atraumatic, PERRLA, Normocephalic Oral: No Gingival or Mucosal Lesions/ Ulcerations Neck: Supple, No Nodes, Trachea Midline Lungs: Diminished, Tachypneic Cardiovascular: Regular rate, Regular Rhythm, Normal S1, Normal S2, No murmurs Abdomen: Bowel Sounds Present, Soft, Non Tender, Obese Extremities: No clubbing, No cyanosis, No edema Skin: No breakdown Musculoskeletal: No Tenderness to Palpation of Joints or Extremities, No Muscle Wasting Lymphatic: No Cervical, Supraclavicular, or Inguinal Adenopathy Neurological: Cranial nerves II-XII grossly intact, Neuro grossly intact Psych/Mental Status: Normal Affect Labs (Last 48 Hours) 05/06/20 05/06/20 05/06/20 05:18 05:18 05:18 WBC RBC Hgb Hct MCV MCH MCHC RDW Std Deviation RDW Coeff of Taras Plt Count MPV Immature Gran % (Auto) Neut % (Auto) Lymph % (Auto) [place] % (Auto) Eos % (Auto) Baso % (Auto) Absolute Neuts (auto) Absolute Lymphs (auto) Nucleated RBC % Diff Path Review Reviewed Platelet Estimate MOD DEC Sodium 137 Potassium 4.1 Chloride 104 Carbon Dioxide 25.0 Anion Gap 8 BUN 26 H Creatinine 0.69 L Estim Creat Clear Calc 61.14 Est GFR (MDRD) Af Amer 146 Est GFR (MDRD) Non-Af 120 BUN/Creatinine Ratio 37.7 H Glucose 228 H Calcium 8.0 L Total Bilirubin 0.90 AST 39 H ALT 39 Alkaline Phosphatase 67 Total Protein 5.5 L Albumin 2.1 L Globulin 3.4 Albumin/Globulin Ratio 0.6 L Procalcitonin 0.16 H POC Glucose 05/06/20 05/06/20 05/06/20 08:19 11:33 16:44 WBC RBC Hgb Hct MCV MCH MCHC RDW Std Deviation RDW Coeff of Taras Plt Count MPV Immature Gran % (Auto) Neut % (Auto) Lymph % (Auto) [place] % (Auto) Eos % (Auto) Baso % (Auto) Absolute Neuts (auto) Absolute Lymphs (auto) Nucleated RBC % Diff Path Review Platelet Estimate Sodium Potassium Chloride Carbon Dioxide Anion Gap BUN Creatinine Estim Creat Clear Calc Est GFR (MDRD) Af Amer Est GFR (MDRD) Non-Af BUN/Creatinine Ratio Glucose Calcium Total Bilirubin AST ALT Alkaline Phosphatase Total Protein Albumin Globulin Albumin/Globulin Ratio Procalcitonin POC Glucose 216 H 370 H 343 H 05/06/20 05/07/20 05/07/20 21:41 06:30 06:30 WBC 3.9 L RBC 4.45 L Hgb 13.1 Hct 40.2 MCV 90.3 MCH 29.4 MCHC 32.6 D RDW Std Deviation 44.2 H RDW Coeff of Taras 13.8 Plt Count 68 L MPV 11.0 Immature Gran % (Auto) 1.000 H Neut % (Auto) 78.8 H Lymph % (Auto) 9.7 L [place] % (Auto) 10.2 H Eos % (Auto) 0.0 Baso % (Auto) 0.3 Absolute Neuts (auto) 3.1 Absolute Lymphs (auto) 0.38 L Nucleated RBC % 0 Diff Path Review Platelet Estimate MOD DEC Sodium 136 Potassium 4.6 Chloride 106 Carbon Dioxide 23.0 Anion Gap 7 BUN 28 H Creatinine 0.68 L Estim Creat Clear Calc 61.14 Est GFR (MDRD) Af Amer 146 Est GFR (MDRD) Non-Af 121 BUN/Creatinine Ratio 40.9 H Glucose 284 H Calcium 8.1 L Total Bilirubin 1.00 AST 53 H ALT 46 Alkaline Phosphatase 89 Total Protein 5.3 L Albumin 1.9 L Globulin 3.4 Albumin/Globulin Ratio 0.6 L Procalcitonin POC Glucose 365 H 05/07/20 05/07/20 05/07/20 07:55 11:47 16:15 WBC RBC Hgb Hct MCV MCH MCHC RDW Std Deviation RDW Coeff of Taras Plt Count MPV Immature Gran % (Auto) Neut % (Auto) Lymph % (Auto) [place] % (Auto) Eos % (Auto) Baso % (Auto) Absolute Neuts (auto) Absolute Lymphs (auto) Nucleated RBC % Diff Path Review Platelet Estimate Sodium Potassium Chloride Carbon Dioxide Anion Gap BUN Creatinine Estim Creat Clear Calc Est GFR (MDRD) Af Amer Est GFR (MDRD) Non-Af BUN/Creatinine Ratio Glucose Calcium Total Bilirubin AST ALT Alkaline Phosphatase Total Protein Albumin Globulin Albumin/Globulin Ratio Procalcitonin POC Glucose 284 H 337 H 343 H 05/07/20 23:00 WBC RBC Hgb Hct MCV MCH MCHC RDW Std Deviation RDW Coeff of Taras Plt Count MPV Immature Gran % (Auto) Neut % (Auto) Lymph % (Auto) [place] % (Auto) Eos % (Auto) Baso % (Auto) Absolute Neuts (auto) Absolute Lymphs (auto) Nucleated RBC % Diff Path Review Platelet Estimate Sodium Potassium Chloride Carbon Dioxide Anion Gap BUN Creatinine Estim Creat Clear Calc Est GFR (MDRD) Af Amer Est GFR (MDRD) Non-Af BUN/Creatinine Ratio Glucose Calcium Total Bilirubin AST ALT Alkaline Phosphatase Total Protein Albumin Globulin Albumin/Globulin Ratio Procalcitonin POC Glucose 301 H Microbiology 05/04/20 10:15 Sputum, Expectorated/Coughed Gram Stain - Final 05/04/20 10:15 Sputum, Expectorated/Coughed Respiratory Culture - Final Haemophilus influenzae Streptococcus agalactiae (B) 05/03/20 08:45 Blood Culture (Wb) - Left Hand Bacteria Detection (PCR) - Final Staphylococcus epidermidis 05/03/20 08:45 Blood Culture (Wb) - Left Hand Blood Culture - Preliminary Staphylococcus epidermidis Clinical Impression(s) from Imaging Studies Chest X-Ray 05/03/20 08:55 IMPRESSION: Minimal increased markings at the left lung base with blunting of left costophrenic angle. There has been no change since prior study. Electronically Signed: Casimiro Marie MD at 9:09 EST , Service support , Chest CTA 05/03/20 09:36 IMPRESSION: Multiple bilateral pulmonary emboli involving branches of the lower lobe pulmonary arteries. Multiple bilateral pulmonary infiltrates as described. Splenomegaly. Electronically Signed: Casimiro Marie MD at 10:41 EST , Service support , Current Medications Acetaminophen (Acetaminophen 325 Mg Tablet) 650 mg PO Q6H PRN PRN PRN Reason: Pain Score 1-10/Temp > 100.7 F Last Admin: 05/07/20 23:14 Dose: 650 mg Documented by: Al Hydroxide/Mg Hydroxide (Mag Hydrox/Al Hydrox/Simeth 30 Ml Udc) 30 ml PO Q6H PRN PRN PRN Reason: Gastric Burning Albuterol Sulfate (Albuterol Ih 8.5 Gm (Proair) Inhaler (200 Puffs)) 2.5 puff INHALATION Q2H PRN PRN PRN Reason: Shortness of Breath/Wheezing Last Admin: 05/07/20 16:21 Dose: 2.5 puff Documented by: Apixaban (Apixaban 5 Mg Tablet) 10 mg PO BID [facility] Last Admin: 05/07/20 20:24 Dose: 10 mg Documented by: Atenolol (Atenolol 25 Mg Tablet) 12.5 mg PO DAILY [facility] Last Admin: 05/07/20 08:01 Dose: 12.5 mg Documented by: Atorvastatin Calcium (Atorvastatin Calcium 20 Mg Tablet) 20 mg PO QHS [facility] Last Admin: 05/07/20 20:23 Dose: 20 mg Documented by: Cholecalciferol (Cholecalciferol (Vit D3) 1,000 Unit (25mcg)) 1,000 unit PO BID [facility] Last Admin: 05/07/20 23:14 Dose: 1,000 unit Documented by: Cyanocobalamin (Cyanocobalamin 500 Mcg Tablet) 1,000 mcg PO DAILY [facility] Last Admin: 05/07/20 08:02 Dose: 1,000 mcg Documented by: Dexamethasone (Dexamethasone 4 Mg Tablet) 6 mg PO DAILY [facility] Last Admin: 05/07/20 08:01 Dose: 6 mg Documented by: Dextrose (Dextrose 50%-Water 25 Gm/50 Ml Disp.Syrin) 0 gm IV X1 PRN; Protocol PRN Reason: Hypoglycemia Finasteride (Finasteride 5 Mg Tablet) 5 mg PO DAILY [facility] Last Admin: 05/07/20 08:01 Dose: 5 mg Documented by: Furosemide (Furosemide 40 Mg/4 Ml Vial) 40 mg IV DAILY [facility] Last Admin: 05/07/20 08:01 Dose: 40 mg Documented by: Glucagon (Glucagon 1 Mg/Ml Syringe) 1 mg IM .X1 PRN PRN Reason: Hypoglycemia Hydromorphone HCl (Hydromorphone 1 Mg/Ml Syringe) 1 mg IV Q4H PRN PRN PRN Reason: Pain Score 6-10 Sodium Chloride () 250 mls @ 15 mls/hr IV .[id number] PRN PRN Reason: Saline Flush Last Infusion: 05/04/20 15:30 Dose: 0 mls/hr Documented by: Sodium Chloride () 250 mls @ 15 mls/hr IV .[id number] PRN PRN Reason: Additional IVPB Infusion Ceftriaxone Sodium 2 gm/ (Sodium Chloride) 50 mls @ 100 mls/hr IV Q24 [facility] Last Infusion: 05/07/20 08:44 Dose: Infused Documented by: Insulin Glargine (Insulin Glargine 100 Units/Ml Pen) 50 units SC 1100,2200 [facility] Last Admin: 05/07/20 23:13 Dose: 50 u Documented by: Insulin Human Lispro (Insulin Lispro 100 Unit/Ml Insuln.Pen) 0 unit SC ACHS [facility]; Protocol Last Admin: 05/07/20 23:13 Dose: 6 units Documented by: Insulin Human Lispro (Insulin Lispro 100 Unit/Ml Insuln.Pen) 20 unit SC BREAKFAST [facility] Last Admin: 05/07/20 08:03 Dose: 20 u Documented by: Insulin Human Lispro (Insulin Lispro 100 Unit/Ml Insuln.Pen) 20 unit SC DINNER [facility] Last Admin: 05/07/20 16:16 Dose: 20 u Documented by: Insulin Human Lispro (Insulin Lispro 100 Unit/Ml Insuln.Pen) 20 unit SC LUNCH [facility] Last Admin: 05/07/20 12:53 Dose: 20 u Documented by: Lorazepam (Lorazepam 2 Mg/Ml Syringe) 0.5 mg IV Q4H PRN PRN PRN Reason: anxiety/agitation with BIPAP Last Admin: 05/08/20 03:23 Dose: 0.5 mg Documented by: Losartan Potassium (Losartan Potassium 50 Mg Tablet) 50 mg PO DAILY [facility] Last Admin: 05/07/20 08:02 Dose: 50 mg Documented by: Magnesium Hydroxide (Magnesium Hydroxide 30 Ml Udc) 30 ml PO DAILY PRN PRN PRN Reason: Constipation Melatonin (Melatonin 3 Mg Tablet) 3 mg PO QHS PRN PRN PRN Reason: INSOMNIA Last Admin: 05/07/20 20:26 Dose: 3 mg Documented by: Nitroglycerin (Nitroglycerin (Inpatient Use) 0.4 Mg Tab.Subl) 0.4 mg SUBLINGUAL Q5M PRN PRN Reason: CARDIAC/CHEST PAIN Ondansetron HCl (Ondansetron 4 Mg/2 Ml Vial) 4 mg IV Q8H PRN PRN PRN Reason: NAUSEA/VOMITING Oxycodone HCl (Oxycodone 5 Mg Tablet) 10 mg PO Q4H PRN PRN PRN Reason: Pain Score 4-5 Prochlorperazine Edisylate (Prochlorperazine 10 Mg/2 Ml Vial) 5 mg IV Q4H PRN PRN PRN Reason: Breakthrough nausea/vomiting Sodium Chloride (0.9% Saline Lock 10 Ml Syringe) 10 - 40 ml IV UD PRN PRN Reason: SALINE FLUSH Last Admin: 05/08/20 03:24 Dose: 10 ml Documented by: Sodium Chloride (Sodium Chloride 0.65% 1 [place].Btl) 2 spray NASAL TID PRN PRN PRN Reason: NASAL DRYNESS Last Admin: 05/06/20 21:47 Dose: 2 spray Documented by: Tamsulosin HCl (Tamsulosin Hcl 0.4 Mg Capsule) 0.4 mg PO QHS [facility] Last Admin: 05/07/20 20:23 Dose: 0.4 mg Documented by: Medical Necessity - Tobacco Use Smoking Status: Never smoker Assessment/Plan All Active Problems Hyperglycemia due to diabetes mellitus (Acute) COVID-19 (Acute) Hypoxemia (Acute) Pulmonary embolism (Acute) Sepsis (Acute) History of cholecystectomy (Resolved) Shortness of breath (Acute) RECOMMENDATIONS: 1. Continue to wean FiO2 to maintain saturations at or above 90%. 2. Continue Decadron with plans to complete a 10-day treatment course. 3. Continue systemic anticoagulation with Eliquis. 4. Encourage incentive spirometer use and mobilize patient as tolerated. 5. Continue antimicrobials per ID recommendations. 6. Continue attempts at gentle diuresis as tolerated by hemodynamics and renal function. 7. BiPAP, if needed, can be utilized to improve oxygenation and hopefully assist with alveolar recruitment. IMPRESSIONS: 1. Acute hypoxemic respiratory failure secondary to COVID-19 pneumonia and bilateral pulmonary emboli Plan to continue current supportive measures, including Decadron with plans to complete a 10-day treatment course. Goal to maintain oxygen saturations at or above 90%. The patient has completed a treatment course of remdesivir. He remains on antimicrobials per ID recommendations, given Haemophilus isolated from sputum culture. The patient will also be maintained on IV diuretic therapy as tolerated by hemodynamics and renal function. If needed, the patient can be transition to BiPAP to assist with alveolar recruitment. 2. Diabetes mellitus/hypertension/hyperlipidemia/BPH/obesity/paroxysmal atrial fibrillation Complicates care, management, recovery and prognosis. Recommend complete discontinuation of Pradaxa given high risk for bleeding complications. Continue home medications as indicated. This note was generated with [employer] dictation software. It may contain incorrect words, spelling, and punctuation that were not noted in checking the note before signing. Inpatient E&M: [id number] [facility] L[facility]
[2020-05-08 05:58] LABS: Absolute Lymphocyte Count 0.63 X10^3/uL (0.83-4.51); Absolute Neutrophil Count 5.5 X10^3/uL (2.0-7.7); Basophil# 0.01 X10^3/uL; Basophil% 0.1 % (0-1); Eosinophil# 0.02 X10^3/uL; Eosinophils% 0.3 % (0-5); Hematocrit 41.7 % (40-54); Hemoglobin 13.7 g/dL (13.0-16.5); Lymphocyte # 0.63 X10^3/ul (4.0); Lymphocyte % 9.4 % (19-41); Mean Corp Hgb Conc 32.9 g/dL (32-36); Mean Corpuscular Hgb 29.6 pg (27.0-32.0); Mean Corpuscular Volume 90.1 fL (80-94); Mean Platelet Vol. 11.2 fl (6.2-12.0); Monocyte# 0.45 X10^3/uL; Monocyte% 6.7 % (0-10); NRBC Flagged by Analyzer 0 % (0-5); Neutrophil # 5.49 X10^3/uL (2.7-7.7); Neutrophil % 81.7 % (47-70); POSITIVE COUNT YES; Platelet Count 84 K/mm3 (150-450); RBC Distribution Width CV 13.3 % (11.6-14.6); RBC Distribution Width SD 44.3 fl (35.1-43.9); Red Blood Count 4.63 M/mm3 (4.6-6.2); White Blood Count 6.7 K/mm3 (4.4-11.0)
[2020-05-08 07:14] LABS: ALB/GLOB Ratio 0.5 RATIO (0.9-2.4); AST(SGOT) 53 U/L (15-37); Alanine Aminotransfer ALT/SGPT 51 U/L (16-61); Alkaline Phosphatase 92 U/L (45-117); Anion Gap 5 (5-15); BUN 27 mg/dL (7-18); BUN/Creat Ratio 35.2 RATIO (10-20); Calcium,Total 8.5 mg/dL (8.5-10.1); Chloride 104 mmol/L (98-107); Creatinine, Serum 0.77 mg/dL (0.70-1.30); EST Glomerular Filtration Rate 106 mL/min (>60); Est Glom Filt Rate - Afr Amer 129 mL/min (>60); Estimated Creatinine Clearance 61.14 ml/min; Globulin 4.2 g/dL (2.2-4.2); Glucose 232 mg/dL (74-106); Potassium 4.2 mmol/L (3.5-5.1); Protein, Total 6.2 g/dL (6.4-8.2); Sodium Level 138 mmol/L (136-145)
--- NOTE | 2020-05-08 07:36 | PN_ITS ---
Patient Problems: Active and Suspected Problems Hyperglycemia due to diabetes mellitus (Acute) COVID-19 (Acute) Hypoxemia (Acute) Pulmonary embolism (Acute) Sepsis (Acute) Shortness of breath (Acute) Intraperitoneal bleeding (Suspected) Reason for Visit: Acute hypoxic respiratory failure Bilateral multiple PEs Acute COVID-19 pneumonitis Subjective: Patient seen states he thinks his condition is getting better however still remains on high flow oxygen. Blood glucose remains uncontrolled subsequent adjustment made to patient insulin regimen 05/07/2020; no significant improvement in patient's clinical condition with patient requiring BiPAP during the night. 05/08/2020; patient seen, remains on high flow oxygen Airvo. Patient requested for Rao catheter placement in view of patient being on Lasix. Blood glucose level still not well controlled. Objective: GENERAL: cooperative HEENT: Atraumatic; EYES; Anicteric, Normal Conjunctiva NECK; supple, normal thyroid, RESPIRATORY: Diminished to auscultation CARDIOVASCULAR: Regular S1 S2, GI: soft, normoactive bowel sounds, : No Renal angle tenderness; EXTREMITIES: No edema, no clubbing, MUSCULOSKELETAL: no muscle waisting NEURO: Awake; no lateralizing signs. SKIN: No Rash PSYCH; Flat affect Vitals/I&O's: Vital Signs Temp Pulse Resp BP Pulse Ox 97 F L 60 20 H 133/62 H 92 05/08/20 06:24 05/08/20 06:24 05/08/20 06:24 05/08/20 06:24 05/08/20 06:24 Oxygen Flow Rate (L/min) 15 Oxygen Delivery Method Airvo Weight: 114.6 kg Body Mass Index (BMI) 40.1 Finger Stick Blood Glucose 161 Intake and Output for Last 24 Hours 05/06/20 05/07/20 05/08/20 23:59 23:59 23:59 Intake Total 1550 / 1550 1550 / 1800 550 / 550 Output Total 2230 / 2230 1200 / 1700 1000 / 1000 Balance -680 / -680 350 / 100 -450 / -450 Microbiology Past 72 Hours 05/04/20 10:15 Sputum, Expectorated/Coughed Gram Stain - Final 05/04/20 10:15 Sputum, Expectorated/Coughed Respiratory Culture - Final Haemophilus influenzae Streptococcus agalactiae (B) 05/03/20 08:45 Blood Culture (Wb) - Left Hand Bacteria Detection (PCR) - Final Staphylococcus epidermidis 05/03/20 08:45 Blood Culture (Wb) - Left Hand Blood Culture - Preliminary Staphylococcus epidermidis Laboratory Results 05/07/20 06:30: WBC 3.9 L, RBC 4.45 L, Hgb 13.1, Hct 40.2, MCV 90.3, MCH 29.4, MCHC 32.6 D, RDW Std Deviation 44.2 H, RDW Coeff of Taras 13.8, Plt Count 68 L, MPV 11.0, Immature Gran % (Auto) 1.000 H, Neut % (Auto) 78.8 H, Lymph % (Auto) 9.7 L, Irwin % (Auto) 10.2 H, Eos % (Auto) 0.0, Baso % (Auto) 0.3, Absolute Neuts (auto) 3.1, Absolute Lymphs (auto) 0.38 L, Nucleated RBC % 0, Platelet Estimate MOD 05/07/20 06:30: Sodium 136, Potassium 4.6, Chloride 106, Carbon Dioxide 23.0, Anion Gap 7, BUN 28 H, Creatinine 0.68 L, Estim Creat Clear Calc 61.14, Est GFR (MDRD) Af Amer 146, Est GFR (MDRD) Non-Af 121, BUN/Creatinine Ratio 40.9 H, Glucose 284 H, Calcium 8.1 L, Total Bilirubin 1.00, AST 53 H, ALT 46, Alkaline Phosphatase 89, Total Protein 5.3 L, Albumin 1.9 L, Globulin 3.4, Albumin/Globulin Ratio 0.6 L 05/07/20 07:55: POC Glucose 284 H 05/07/20 11:47: POC Glucose 337 H 05/07/20 16:15: POC Glucose 343 H 05/07/20 23:00: POC Glucose 301 H 05/08/20 05:38: WBC 6.7, RBC 4.63, Hgb 13.7, Hct 41.7, MCV 90.1, MCH 29.6, MCHC 32.9, RDW Std Deviation 44.3 H, RDW Coeff of Taras 13.3, Plt Count 84 L, MPV 11.2, Immature Gran % (Auto) 1.800 H, Neut % (Auto) 81.7 H, Lymph % (Auto) 9.4 L, Irwin % (Auto) 6.7, Eos % (Auto) 0.3, Baso % (Auto) 0.1, Absolute Neuts (auto) 5.5, Absolute Lymphs (auto) 0.63 L, Nucleated RBC % 0 05/08/20 05:38: Sodium Cancelled, Potassium Cancelled, Chloride Cancelled, Carbon Dioxide Cancelled, Anion Gap Cancelled, BUN Cancelled, Creatinine Cancelled, Estim Creat Clear Calc Cancelled, Est GFR (MDRD) Af Amer Cancelled, Est GFR (MDRD) Non-Af Cancelled, BUN/Creatinine Ratio Cancelled, Glucose Cancelled, Calcium Cancelled, Total Bilirubin Cancelled, AST Cancelled, ALT Cancelled, Alkaline Phosphatase Cancelled, Total Protein Cancelled, Albumin Cancelled, Globulin Cancelled, Albumin/Globulin Ratio Cancelled 05/08/20 06:40: Sodium 138, Potassium 4.2, Chloride 104, Carbon Dioxide 29.0, Anion Gap 5, BUN 27 H, Creatinine 0.77, Estim Creat Clear Calc 61.14, Est GFR (MDRD) Af Amer 129, Est GFR (MDRD) Non-Af 106, BUN/Creatinine Ratio 35.2 H, Glucose 232 H, Calcium 8.5, Total Bilirubin 1.20 H, AST 53 H, ALT 51, Alkaline Phosphatase 92, Total Protein 6.2 L, Albumin 2.0 L, Globulin 4.2, Albumin/Globulin Ratio 0.5 L Current Medications Acetaminophen (Acetaminophen 325 Mg Tablet) 650 mg PO Q6H PRN PRN PRN Reason: Pain Score 1-10/Temp > 100.7 F Last Admin: 05/07/20 23:14 Dose: 650 mg Documented by: Al Hydroxide/Mg Hydroxide (Mag Hydrox/Al Hydrox/Simeth 30 Ml Udc) 30 ml PO Q6H PRN PRN PRN Reason: Gastric Burning Albuterol Sulfate (Albuterol Ih 8.5 Gm (Proair) Inhaler (200 Puffs)) 2.5 puff INHALATION Q2H PRN PRN PRN Reason: Shortness of Breath/Wheezing Last Admin: 05/07/20 16:21 Dose: 2.5 puff Documented by: Apixaban (Apixaban 5 Mg Tablet) 10 mg PO BID KEERTHI Last Admin: 05/07/20 20:24 Dose: 10 mg Documented by: Atenolol (Atenolol 25 Mg Tablet) 12.5 mg PO DAILY [facility] Last Admin: 05/07/20 08:01 Dose: 12.5 mg Documented by: Atorvastatin Calcium (Atorvastatin Calcium 20 Mg Tablet) 20 mg PO QHS [facility] Last Admin: 05/07/20 20:23 Dose: 20 mg Documented by: Cholecalciferol (Cholecalciferol (Vit D3) 1,000 Unit (25mcg)) 1,000 unit PO BID [facility] Last Admin: 05/07/20 23:14 Dose: 1,000 unit Documented by: Cyanocobalamin (Cyanocobalamin 500 Mcg Tablet) 1,000 mcg PO DAILY [facility] Last Admin: 05/07/20 08:02 Dose: 1,000 mcg Documented by: Dexamethasone (Dexamethasone 4 Mg Tablet) 6 mg PO DAILY [facility] Last Admin: 05/07/20 08:01 Dose: 6 mg Documented by: Dextrose (Dextrose 50%-Water 25 Gm/50 Ml Disp.Syrin) 0 gm IV X1 PRN; Protocol PRN Reason: Hypoglycemia Finasteride (Finasteride 5 Mg Tablet) 5 mg PO DAILY [facility] Last Admin: 05/07/20 08:01 Dose: 5 mg Documented by: Furosemide (Furosemide 40 Mg/4 Ml Vial) 40 mg IV DAILY [facility] Last Admin: 05/07/20 08:01 Dose: 40 mg Documented by: Glucagon (Glucagon 1 Mg/Ml Syringe) 1 mg IM .X1 PRN PRN Reason: Hypoglycemia Hydromorphone HCl (Hydromorphone 1 Mg/Ml Syringe) 1 mg IV Q4H PRN PRN PRN Reason: Pain Score 6-10 Sodium Chloride () 250 mls @ 15 mls/hr IV .[id number] PRN PRN Reason: Saline Flush Last Infusion: 05/04/20 15:30 Dose: 0 mls/hr Documented by: Sodium Chloride () 250 mls @ 15 mls/hr IV .[id number] PRN PRN Reason: Additional IVPB Infusion Ceftriaxone Sodium 2 gm/ (Sodium Chloride) 50 mls @ 100 mls/hr IV Q24 [facility] Last Infusion: 05/07/20 08:44 Dose: Infused Documented by: Insulin Glargine (Insulin Glargine 100 Units/Ml Pen) 50 units SC 1100,2200 [facility] Last Admin: 05/07/20 23:13 Dose: 50 u Documented by: Insulin Human Lispro (Insulin Lispro 100 Unit/Ml Insuln.Pen) 0 unit SC ACHS [facility]; Protocol Last Admin: 05/07/20 23:13 Dose: 6 units Documented by: Insulin Human Lispro (Insulin Lispro 100 Unit/Ml Insuln.Pen) 20 unit SC BREAKFAST [facility] Last Admin: 05/07/20 08:03 Dose: 20 u Documented by: Insulin Human Lispro (Insulin Lispro 100 Unit/Ml Insuln.Pen) 20 unit SC DINNER [facility] Last Admin: 05/07/20 16:16 Dose: 20 u Documented by: Insulin Human Lispro (Insulin Lispro 100 Unit/Ml Insuln.Pen) 20 unit SC LUNCH [facility] Last Admin: 05/07/20 12:53 Dose: 20 u Documented by: Lorazepam (Lorazepam 2 Mg/Ml Syringe) 0.5 mg IV Q4H PRN PRN PRN Reason: anxiety/agitation with BIPAP Last Admin: 05/08/20 03:23 Dose: 0.5 mg Documented by: Losartan Potassium (Losartan Potassium 50 Mg Tablet) 50 mg PO DAILY [facility] Last Admin: 05/07/20 08:02 Dose: 50 mg Documented by: Magnesium Hydroxide (Magnesium Hydroxide 30 Ml Udc) 30 ml PO DAILY PRN PRN PRN Reason: Constipation Melatonin (Melatonin 3 Mg Tablet) 3 mg PO QHS PRN PRN PRN Reason: INSOMNIA Last Admin: 05/07/20 20:26 Dose: 3 mg Documented by: Nitroglycerin (Nitroglycerin (Inpatient Use) 0.4 Mg Tab.Subl) 0.4 mg SUBLINGUAL Q5M PRN PRN Reason: CARDIAC/CHEST PAIN Ondansetron HCl (Ondansetron 4 Mg/2 Ml Vial) 4 mg IV Q8H PRN PRN PRN Reason: NAUSEA/VOMITING Oxycodone HCl (Oxycodone 5 Mg Tablet) 10 mg PO Q4H PRN PRN PRN Reason: Pain Score 4-5 Prochlorperazine Edisylate (Prochlorperazine 10 Mg/2 Ml Vial) 5 mg IV Q4H PRN PRN PRN Reason: Breakthrough nausea/vomiting Sodium Chloride (0.9% Saline Lock 10 Ml Syringe) 10 - 40 ml IV UD PRN PRN Reason: SALINE FLUSH Last Admin: 05/08/20 03:24 Dose: 10 ml Documented by: Sodium Chloride (Sodium Chloride 0.65% 1 Anthony Anthony.Btl) 2 spray NASAL TID PRN PRN PRN Reason: NASAL DRYNESS Last Admin: 05/06/20 21:47 Dose: 2 spray Documented by: Tamsulosin HCl (Tamsulosin Hcl 0.4 Mg Capsule) 0.4 mg PO QHS KEERTHI Last Admin: 05/07/20 20:23 Dose: 0.4 mg Documented by: STROKE Vital Signs/Narrative: Vital Signs Temp Pulse Resp BP Pulse Ox 05/08/20 06:24 97 F L 60 20 H 133/62 H 92 05/08/20 05:31 59 L 24 H 89 05/08/20 05:23 96.8 F L 63 20 H 149/66 H 92 05/08/20 03:39 56 L 26 H 86 Medical Necessity - Tobacco Use Smoking Status: Never smoker Assessment/Plan All Active Problems Hyperglycemia due to diabetes mellitus (Acute) COVID-19 (Acute) Hypoxemia (Acute) Pulmonary embolism (Acute) Sepsis (Acute) History of cholecystectomy (Resolved) Shortness of breath (Acute) The patient is a 69 year old M recently diagnosed with COVID-19 who presented with progressive shortness of breath. Patient in addition did complain of headache fatigue fever and chills. Imaging studies obtained on admission demonstrated Multiple bilateral pulmonary emboli involving branches of the lower lobe pulmonary arteries as well as multiple bilateral pulmonary infiltrates 1. Acute hypoxic respiratory failure ?Secondary to acute COVID-19 pneumonia with superimposed bilateral pulmonary embolism and infiltrate. Admitted to the cohort floor. Patient is on Decadron did continue in addition patient was placed on supplemental oxygen titrated to keep saturation greater than 90 with consultation placed to both pulmonary medicine as well as infectious disease - 05/04/2020. Patient was admitted to monitored bed. Was started on heparin drip discontinued due to drop in his platelet count to switch to Eliquis. Was also seen in consultation by Dr. Chowdhury with infectious disease did start patient on remdesivir. Patient oxygen requirements increasing currently on 8 L at rest ?05/05/2020; patient seen still requires high flow oxygen -05/06/2020; Patient seen states he thinks his condition is getting better however still remains on high flow oxygen. -05/07/2020; 05/07/2020; no significant improvement in patient's clinical condition with patient requiring BiPAP during the night. patient sputum cultures grew Haemophilus influenzae Streptococcus group B Rocephin added to patient's therapy. Blood cultures positive for staph epi thought to be contaminant 05/08/2020; patient seen, remains on high flow oxygen Airvo 2. Acute COVID-19 pneumonitis ?Management as discussed above -05/07/2020; patient sputum cultures grew Haemophilus influenzae Streptococcus group B Rocephin added to patient's therapy. Blood cultures positive for staph epi thought to be contaminant 3. Covid induced hypercoagulable state ?Patient presented with bilateral pulmonary embolism despite being on systemic anticoagulation with Pradaxa. Pradaxa discontinued patient started on heparin 4. Paroxysmal A. fib ?Rate controlled on systemic anticoagulation with Pradaxa which is being held in view of above 5. Diabetes mellitus type II -Controlled with hyperglycemia,patient's oral hypoglycemics held. Placed on long acting insulin, Accu-Cheks a.c. and at bedtime and covered with sliding scale insulin -05/06/2020; Blood glucose remains uncontrolled subsequent adjustment made to patient insulin regimen 6. Hypertension - Blood pressure controlled, home medications continued with dose adjustment as needed 7. Dyslipidemia -Patient is on statin therapy, continued at home dose 8. BPH ?Patient is on tamsulosin did continue 9. Morbid obesity - With a BMI of 46.2 patient was counseled on weight reduction 10. Thrombocytopenia ?Heparin drip discontinued -05/08/2020; patient platelet count continues to rise. 84 as of today Inpatient E&M: 63389 Subs Hosp L2
[2020-05-08] MEDS: Insulin Lispro 100 UNIT/ML INSULN.PEN 20 UNIT SC ×3 (09:15→16:56)
[2020-05-08] MEDS: Insulin Lispro 100 UNIT/ML INSULN.PEN SC ×4 (09:16→20:50)
[2020-05-08] MEDS: Furosemide 40 MG/4 ML Vial IV (09:22)
[2020-05-08] MEDS: dexAMETHasone 4 MG Tablet 6 MG PO (09:24)
[2020-05-08] MEDS: Cyanocobalamin 500 MCG Tablet 1000 MCG PO (09:25)
[2020-05-08] MEDS: Atenolol 25 MG Tablet 12.5 MG PO (09:26)
[2020-05-08] MEDS: APIXABAN 5 MG TABLET 10 MG PO ×2 (09:28→20:49)
[2020-05-08] MEDS: Losartan Potassium 50 MG Tablet PO (09:29)
[2020-05-08] MEDS: Finasteride 5 MG Tablet PO (09:29)
[2020-05-08 10:00] LABS: Bedside Glucose 239 mg/dL (70-110)
[2020-05-08 11:41] LABS: Bedside Glucose 304 mg/dL (70-110)
[2020-05-08] MEDS: oxyCODONE 5 MG Tablet 10 MG PO (13:54)
[2020-05-08 16:55] LABS: Bedside Glucose 333 mg/dL (70-110)
[2020-05-08] MEDS: Atorvastatin Calcium 20 MG Tablet PO (20:49)
[2020-05-08] MEDS: Tamsulosin HCl 0.4 MG Capsule PO (20:49)
[2020-05-08 22:41] LABS: Bedside Glucose 341 mg/dL (70-110)
[2020-05-09] VITALS (11 sets, daily range): BP systolic 124–134; BP diastolic 59–76; PULSE 58–75; RESP 12–24; TEMP 36.6; O2SAT 86–94
--- NOTE | 2020-05-09 05:51 | PCM.PN.PUL ---
Patient Problems: Active and Suspected Problems Hyperglycemia due to diabetes mellitus (Acute) COVID-19 (Acute) Hypoxemia (Acute) Pulmonary embolism (Acute) Sepsis (Acute) Shortness of breath (Acute) Intraperitoneal bleeding (Suspected) Subjective: The patient was seen and examined at the bedside this morning. Events from the last 24 hours have been reviewed. The patient is currently afebrile, hemodynamically stable and maintaining appropriate saturations on Airvo heated high flow oxygen with an FiO2 requirement of 90%. The patient did tolerate BiPAP overnight. The patient has completed his treatment course of remdesivir. He remains systemically anticoagulated on Eliquis. The patient also remains on antimicrobials, Decadron and scheduled IV Lasix. The patient is currently documented to be overall net -700 mL for the hospital admission. Renal function is stable. Objective: The patient's most recent lab work, culture data and imaging studies have all been personally reviewed. Sputum culture was positive for possible Haemophilus and group B streptococcus. - Physical Exam Vitals/I&O's: Vital Signs Temp Pulse Resp BP Pulse Ox 97.9 F 60 22 H 127/65 H 90 05/09/20 02:05 05/09/20 05:00 05/09/20 05:00 05/09/20 02:05 05/09/20 05:00 Oxygen Flow Rate (L/min) 60 Oxygen Delivery Method Bi-pap Weight: 252 lb 10.396 oz Body Mass Index (BMI) 40.1 Finger Stick Blood Glucose 161 Intake and Output for Last 24 Hours 05/07/20 05/08/20 05/09/20 23:59 23:59 23:59 Intake Total 1550 / 1800 1335.25 / 1335.25 Output Total 1200 / 1700 3200 / 3200 Balance 350 / 100 -1864.75 / -1864.75 General: Alert, Cooperative, No apparent distress HEENT: Atraumatic, PERRLA, Normocephalic Oral: No Gingival or Mucosal Lesions/ Ulcerations Neck: Supple, No Nodes, Trachea Midline Lungs: No rhonchi, No wheeze, No rales, Diminished, Tachypneic, - - Speaking in complete sentences. No accessory muscle use. Cardiovascular: Regular rate, Regular Rhythm, Normal S1, Normal S2, No murmurs Abdomen: Bowel Sounds Present, Soft, Non Tender, Obese Extremities: No clubbing, No cyanosis, No edema Skin: No breakdown Musculoskeletal: No Tenderness to Palpation of Joints or Extremities, No Muscle Wasting Lymphatic: No Cervical, Supraclavicular, or Inguinal Adenopathy Neurological: Cranial nerves II-XII grossly intact, Neuro grossly intact Psych/Mental Status: Normal Affect, Appropriate Labs (Last 48 Hours) 05/07/20 05/07/20 05/07/20 06:30 06:30 07:55 WBC 3.9 L RBC 4.45 L Hgb 13.1 Hct 40.2 MCV 90.3 MCH 29.4 MCHC 32.6 D RDW Std Deviation 44.2 H RDW Coeff of Taras 13.8 Plt Count 68 L MPV 11.0 Immature Gran % (Auto) 1.000 H Neut % (Auto) 78.8 H Lymph % (Auto) 9.7 L [place] % (Auto) 10.2 H Eos % (Auto) 0.0 Baso % (Auto) 0.3 Absolute Neuts (auto) 3.1 Absolute Lymphs (auto) 0.38 L Nucleated RBC % 0 Platelet Estimate MOD DEC Sodium 136 Potassium 4.6 Chloride 106 Carbon Dioxide 23.0 Anion Gap 7 BUN 28 H Creatinine 0.68 L Estim Creat Clear Calc 61.14 Est GFR (MDRD) Af Amer 146 Est GFR (MDRD) Non-Af 121 BUN/Creatinine Ratio 40.9 H Glucose 284 H Calcium 8.1 L Total Bilirubin 1.00 AST 53 H ALT 46 Alkaline Phosphatase 89 Total Protein 5.3 L Albumin 1.9 L Globulin 3.4 Albumin/Globulin Ratio 0.6 L POC Glucose 284 H 05/07/20 05/07/20 05/07/20 11:47 16:15 23:00 WBC RBC Hgb Hct MCV MCH MCHC RDW Std Deviation RDW Coeff of Taras Plt Count MPV Immature Gran % (Auto) Neut % (Auto) Lymph % (Auto) [place] % (Auto) Eos % (Auto) Baso % (Auto) Absolute Neuts (auto) Absolute Lymphs (auto) Nucleated RBC % Platelet Estimate Sodium Potassium Chloride Carbon Dioxide Anion Gap BUN Creatinine Estim Creat Clear Calc Est GFR (MDRD) Af Amer Est GFR (MDRD) Non-Af BUN/Creatinine Ratio Glucose Calcium Total Bilirubin AST ALT Alkaline Phosphatase Total Protein Albumin Globulin Albumin/Globulin Ratio POC Glucose 337 H 343 H 301 H 05/08/20 05/08/20 05/08/20 05:38 05:38 06:40 WBC 6.7 RBC 4.63 Hgb 13.7 Hct 41.7 MCV 90.1 MCH 29.6 MCHC 32.9 RDW Std Deviation 44.3 H RDW Coeff of Taras 13.3 Plt Count 84 L MPV 11.2 Immature Gran % (Auto) 1.800 H Neut % (Auto) 81.7 H Lymph % (Auto) 9.4 L [place] % (Auto) 6.7 Eos % (Auto) 0.3 Baso % (Auto) 0.1 Absolute Neuts (auto) 5.5 Absolute Lymphs (auto) 0.63 L Nucleated RBC % 0 Platelet Estimate Sodium Cancelled 138 Potassium Cancelled 4.2 Chloride Cancelled 104 Carbon Dioxide Cancelled 29.0 Anion Gap Cancelled 5 BUN Cancelled 27 H Creatinine Cancelled 0.77 Estim Creat Clear Calc Cancelled 61.14 Est GFR (MDRD) Af Amer Cancelled 129 Est GFR (MDRD) Non-Af Cancelled 106 BUN/Creatinine Ratio Cancelled 35.2 H Glucose Cancelled 232 H Calcium Cancelled 8.5 Total Bilirubin Cancelled 1.20 H AST Cancelled 53 H ALT Cancelled 51 Alkaline Phosphatase Cancelled 92 Total Protein Cancelled 6.2 L Albumin Cancelled 2.0 L Globulin Cancelled 4.2 Albumin/Globulin Ratio Cancelled 0.5 L POC Glucose 05/08/20 05/08/20 05/08/20 09:13 11:24 16:43 WBC RBC Hgb Hct MCV MCH MCHC RDW Std Deviation RDW Coeff of Taras Plt Count MPV Immature Gran % (Auto) Neut % (Auto) Lymph % (Auto) [place] % (Auto) Eos % (Auto) Baso % (Auto) Absolute Neuts (auto) Absolute Lymphs (auto) Nucleated RBC % Platelet Estimate Sodium Potassium Chloride Carbon Dioxide Anion Gap BUN Creatinine Estim Creat Clear Calc Est GFR (MDRD) Af Amer Est GFR (MDRD) Non-Af BUN/Creatinine Ratio Glucose Calcium Total Bilirubin AST ALT Alkaline Phosphatase Total Protein Albumin Globulin Albumin/Globulin Ratio POC Glucose 239 H 304 H 333 H 05/08/20 20:44 WBC RBC Hgb Hct MCV MCH MCHC RDW Std Deviation RDW Coeff of Taras Plt Count MPV Immature Gran % (Auto) Neut % (Auto) Lymph % (Auto) [place] % (Auto) Eos % (Auto) Baso % (Auto) Absolute Neuts (auto) Absolute Lymphs (auto) Nucleated RBC % Platelet Estimate Sodium Potassium Chloride Carbon Dioxide Anion Gap BUN Creatinine Estim Creat Clear Calc Est GFR (MDRD) Af Amer Est GFR (MDRD) Non-Af BUN/Creatinine Ratio Glucose Calcium Total Bilirubin AST ALT Alkaline Phosphatase Total Protein Albumin Globulin Albumin/Globulin Ratio POC Glucose 341 H Microbiology 05/03/20 08:45 Blood Culture (Wb) - Left Hand Bacteria Detection (PCR) - Final Staphylococcus epidermidis 05/03/20 08:45 Blood Culture (Wb) - Left Hand Blood Culture - Final Staphylococcus epidermidis 05/03/20 08:40 Blood Culture (Wb) - Anticubital Left Blood Culture - Final No growth in 5 days. 05/04/20 10:15 Sputum, Expectorated/Coughed Gram Stain - Final 05/04/20 10:15 Sputum, Expectorated/Coughed Respiratory Culture - Final Haemophilus influenzae Streptococcus agalactiae (B) Clinical Impression(s) from Imaging Studies Chest X-Ray 05/03/20 08:55 IMPRESSION: Minimal increased markings at the left lung base with blunting of left costophrenic angle. There has been no change since prior study. Electronically Signed: Casimiro Marie MD at 9:09 EST , Service support , Chest CTA 05/03/20 09:36 IMPRESSION: Multiple bilateral pulmonary emboli involving branches of the lower lobe pulmonary arteries. Multiple bilateral pulmonary infiltrates as described. Splenomegaly. Electronically Signed: Casimiro Marie MD at 10:41 EST , Service support , Current Medications Acetaminophen (Acetaminophen 325 Mg Tablet) 650 mg PO Q6H PRN PRN PRN Reason: Pain Score 1-10/Temp > 100.7 F Last Admin: 05/07/20 23:14 Dose: 650 mg Documented by: Al Hydroxide/Mg Hydroxide (Mag Hydrox/Al Hydrox/Simeth 30 Ml Udc) 30 ml PO Q6H PRN PRN PRN Reason: Gastric Burning Albuterol Sulfate (Albuterol Ih 8.5 Gm (Proair) Inhaler (200 Puffs)) 2.5 puff INHALATION Q2H PRN PRN PRN Reason: Shortness of Breath/Wheezing Last Admin: 05/08/20 09:42 Dose: 2.5 puff Documented by: Apixaban (Apixaban 5 Mg Tablet) 10 mg PO BID [facility] Last Admin: 05/08/20 20:49 Dose: 10 mg Documented by: Atenolol (Atenolol 25 Mg Tablet) 12.5 mg PO DAILY [facility] Last Admin: 05/08/20 09:26 Dose: 12.5 mg Documented by: Atorvastatin Calcium (Atorvastatin Calcium 20 Mg Tablet) 20 mg PO QHS [facility] Last Admin: 05/08/20 20:49 Dose: 20 mg Documented by: Cholecalciferol (Cholecalciferol (Vit D3) 1,000 Unit (25mcg)) 1,000 unit PO BID [facility] Last Admin: 05/08/20 20:49 Dose: 1,000 unit Documented by: Cyanocobalamin (Cyanocobalamin 500 Mcg Tablet) 1,000 mcg PO DAILY [facility] Last Admin: 05/08/20 09:25 Dose: 1,000 mcg Documented by: Dexamethasone (Dexamethasone 4 Mg Tablet) 6 mg PO DAILY [facility] Last Admin: 05/08/20 09:24 Dose: 6 mg Documented by: Dextrose (Dextrose 50%-Water 25 Gm/50 Ml Disp.Syrin) 0 gm IV X1 PRN; Protocol PRN Reason: Hypoglycemia Finasteride (Finasteride 5 Mg Tablet) 5 mg PO DAILY [facility] Last Admin: 05/08/20 09:29 Dose: 5 mg Documented by: Furosemide (Furosemide 40 Mg/4 Ml Vial) 40 mg IV DAILY [facility] Last Admin: 05/08/20 09:22 Dose: 40 mg Documented by: Glucagon (Glucagon 1 Mg/Ml Syringe) 1 mg IM .X1 PRN PRN Reason: Hypoglycemia Hydromorphone HCl (Hydromorphone 1 Mg/Ml Syringe) 1 mg IV Q4H PRN PRN PRN Reason: Pain Score 6-10 Sodium Chloride () 250 mls @ 15 mls/hr IV .[id number] PRN PRN Reason: Saline Flush Last Infusion: 05/08/20 12:21 Dose: 0 mls/hr Documented by: Sodium Chloride () 250 mls @ 15 mls/hr IV .[id number] PRN PRN Reason: Additional IVPB Infusion Ceftriaxone Sodium 2 gm/ (Sodium Chloride) 50 mls @ 100 mls/hr IV Q24 [facility] Last Infusion: 05/08/20 10:00 Dose: Infused Documented by: Insulin Glargine (Insulin Glargine 100 Units/Ml Pen) 50 units SC 1100,2200 [facility] Last Admin: 05/08/20 20:49 Dose: 50 u Documented by: Insulin Human Lispro (Insulin Lispro 100 Unit/Ml Insuln.Pen) 0 unit SC ACHS [facility]; Protocol Last Admin: 05/08/20 20:50 Dose: 8 units Documented by: Insulin Human Lispro (Insulin Lispro 100 Unit/Ml Insuln.Pen) 20 unit SC BREAKFAST [facility] Last Admin: 05/08/20 09:15 Dose: 20 u Documented by: Insulin Human Lispro (Insulin Lispro 100 Unit/Ml Insuln.Pen) 20 unit SC DINNER [facility] Last Admin: 05/08/20 16:56 Dose: 20 u Documented by: Insulin Human Lispro (Insulin Lispro 100 Unit/Ml Insuln.Pen) 20 unit SC LUNCH [facility] Last Admin: 05/08/20 11:26 Dose: 20 u Documented by: Lorazepam (Lorazepam 2 Mg/Ml Syringe) 0.5 mg IV Q4H PRN PRN PRN Reason: anxiety/agitation with BIPAP Last Admin: 05/08/20 23:15 Dose: 0.5 mg Documented by: Losartan Potassium (Losartan Potassium 50 Mg Tablet) 50 mg PO DAILY [facility] Last Admin: 05/08/20 09:29 Dose: 50 mg Documented by: Magnesium Hydroxide (Magnesium Hydroxide 30 Ml Udc) 30 ml PO DAILY PRN PRN PRN Reason: Constipation Melatonin (Melatonin 3 Mg Tablet) 3 mg PO QHS PRN PRN PRN Reason: INSOMNIA Last Admin: 05/07/20 20:26 Dose: 3 mg Documented by: Nitroglycerin (Nitroglycerin (Inpatient Use) 0.4 Mg Tab.Subl) 0.4 mg SUBLINGUAL Q5M PRN PRN Reason: CARDIAC/CHEST PAIN Ondansetron HCl (Ondansetron 4 Mg/2 Ml Vial) 4 mg IV Q8H PRN PRN PRN Reason: NAUSEA/VOMITING Oxycodone HCl (Oxycodone 5 Mg Tablet) 10 mg PO Q4H PRN PRN PRN Reason: Pain Score 4-5 Last Admin: 05/08/20 13:54 Dose: 5 mg Documented by: Prochlorperazine Edisylate (Prochlorperazine 10 Mg/2 Ml Vial) 5 mg IV Q4H PRN PRN PRN Reason: Breakthrough nausea/vomiting Sodium Chloride (0.9% Saline Lock 10 Ml Syringe) 10 - 40 ml IV UD PRN PRN Reason: SALINE FLUSH Last Admin: 05/08/20 23:15 Dose: 10 ml Documented by: Sodium Chloride (Sodium Chloride 0.65% 1 [place]gate.Btl) 2 spray NASAL TID PRN PRN PRN Reason: NASAL DRYNESS Last Admin: 05/06/20 21:47 Dose: 2 spray Documented by: Tamsulosin HCl (Tamsulosin Hcl 0.4 Mg Capsule) 0.4 mg PO QHS [facility] Last Admin: 05/08/20 20:49 Dose: 0.4 mg Documented by: Medical Necessity - Tobacco Use Smoking Status: Never smoker Assessment/Plan All Active Problems Hyperglycemia due to diabetes mellitus (Acute) COVID-19 (Acute) Hypoxemia (Acute) Pulmonary embolism (Acute) Sepsis (Acute) History of cholecystectomy (Resolved) Shortness of breath (Acute) RECOMMENDATIONS: 1. Continue to wean FiO2 to maintain saturations at or above 90%. 2. Continue Decadron with plans to complete a 10-day treatment course. 3. Continue systemic anticoagulation with Eliquis. 4. Encourage incentive spirometer use and mobilize patient as tolerated. 5. Continue antimicrobials per ID recommendations. 6. Continue attempts at gentle diuresis as tolerated by hemodynamics and renal function. 7. BiPAP, if needed, can be utilized to improve oxygenation and hopefully assist with alveolar recruitment. IMPRESSIONS: 1. Acute hypoxemic respiratory failure secondary to COVID-19 pneumonia and bilateral pulmonary emboli Plan to continue current supportive measures, including Decadron with plans to complete a 10-day treatment course. Goal to maintain oxygen saturations at or above 90%. The patient has completed a treatment course of remdesivir. He remains on antimicrobials per ID recommendations, given Haemophilus isolated from sputum culture. The patient will also be maintained on IV diuretic therapy as tolerated by hemodynamics and renal function. If needed, the patient can be transition to BiPAP to assist with alveolar recruitment. 2. Diabetes mellitus/hypertension/hyperlipidemia/BPH/obesity/paroxysmal atrial fibrillation Complicates care, management, recovery and prognosis. Recommend complete discontinuation of Pradaxa given high risk for bleeding complications. Continue home medications as indicated. This note was generated with [employer] ([employer]) dictation software. It may contain incorrect words, spelling, and punctuation that were not noted in checking the note before signing. Inpatient E&M: 62904 Subs Hosp L3
[2020-05-09 06:22] LABS: Absolute Lymphocyte Count 0.52 X10^3/uL (0.83-4.51); Absolute Neutrophil Count 6.3 X10^3/uL (2.0-7.7); Basophil# 0.01 X10^3/uL; Basophil% 0.1 % (0-1); Eosinophil# 0.02 X10^3/uL; Eosinophils% 0.3 % (0-5); Hemoglobin 14.1 g/dL (13.0-16.5); Lymphocyte # 0.52 X10^3/ul (4.0); Mean Corp Hgb Conc 32.8 g/dL (32-36); Mean Corpuscular Hgb 29.7 pg (27.0-32.0); Mean Corpuscular Volume 90.5 fL (80-94); Mean Platelet Vol. 11.3 fl (6.2-12.0); NRBC Flagged by Analyzer 0 % (0-5); Neutrophil # 6.28 X10^3/uL (2.7-7.7); Neutrophil % 84.7 % (47-70); POSITIVE COUNT YES; POSITIVE DIFFERENTIAL YES; Platelet Count 84 K/mm3 (150-450); RBC Distribution Width CV 13.6 % (11.6-14.6); RBC Distribution Width SD 45.5 fl (35.1-43.9); Red Blood Count 4.75 M/mm3 (4.6-6.2); White Blood Count 7.4 K/mm3 (4.4-11.0)
[2020-05-09 06:45] LABS: ALB/GLOB Ratio 0.5 RATIO (0.9-2.4); AST(SGOT) 35 U/L (15-37); Alanine Aminotransfer ALT/SGPT 50 U/L (16-61); Albumin, Serum 1.9 g/dL (3.2-5.0); Alkaline Phosphatase 90 U/L (45-117); Anion Gap 3 (5-15); BUN 26 mg/dL (7-18); BUN/Creat Ratio 34.1 RATIO (10-20); Calcium,Total 8.7 mg/dL (8.5-10.1); Chloride 102 mmol/L (98-107); Creatinine, Serum 0.76 mg/dL (0.70-1.30); EST Glomerular Filtration Rate 107 mL/min (>60); Est Glom Filt Rate - Afr Amer 129 mL/min (>60); Estimated Creatinine Clearance 61.14 ml/min; Globulin 4.2 g/dL (2.2-4.2); Glucose 248 mg/dL (74-106); Potassium 4.2 mmol/L (3.5-5.1); Protein, Total 6.1 g/dL (6.4-8.2); Sodium Level 136 mmol/L (136-145)
[2020-05-09] MEDS: Insulin Lispro 100 UNIT/ML INSULN.PEN SC ×4 (08:29→20:39)
[2020-05-09] MEDS: Insulin Lispro 100 UNIT/ML INSULN.PEN 25 UNIT SC ×3 (08:31→17:19)
[2020-05-09] MEDS: dexAMETHasone 4 MG Tablet 6 MG PO (08:37)
[2020-05-09] MEDS: Atenolol 25 MG Tablet 12.5 MG PO (08:38)
[2020-05-09] MEDS: APIXABAN 5 MG TABLET 10 MG PO ×2 (08:40→20:35)
[2020-05-09] MEDS: Losartan Potassium 50 MG Tablet PO (08:40)
[2020-05-09] MEDS: 0.9% Saline Lock 10 ML Syringe IV ×2 (08:41→23:20)
[2020-05-09] MEDS: Finasteride 5 MG Tablet PO (08:41)
[2020-05-09] MEDS: Furosemide 40 MG/4 ML Vial IV (08:41)
[2020-05-09] MEDS: Cyanocobalamin 500 MCG Tablet 1000 MCG PO (08:44)
--- NOTE | 2020-05-09 10:11 | PCM.PN.HOSP ---
Patient Problems: Active and Suspected Problems Hyperglycemia due to diabetes mellitus (Acute) COVID-19 (Acute) Hypoxemia (Acute) Pulmonary embolism (Acute) Sepsis (Acute) Shortness of breath (Acute) Intraperitoneal bleeding (Suspected) Reason for Visit: Acute hypoxic respiratory failure Bilateral multiple PEs Acute COVID-19 pneumonitis Subjective: Patient seen appears comfortable at rest however remains on Airvo oxygen saturation in the high 80s to low 90s. Objective: GENERAL: cooperative HEENT: Atraumatic; EYES; Anicteric, Normal Conjunctiva NECK; supple, normal thyroid, RESPIRATORY: Diminished to auscultation CARDIOVASCULAR: Regular S1 S2, GI: soft, normoactive bowel sounds, : No Renal angle tenderness; EXTREMITIES: No edema, no clubbing, MUSCULOSKELETAL: no muscle waisting NEURO: Awake; no lateralizing signs. SKIN: No Rash PSYCH; Flat affect Vitals/I&O's: Vital Signs Temp Pulse Resp BP Pulse Ox 97.8 F 64 18 134/64 H 93 05/09/20 08:57 05/09/20 08:57 05/09/20 08:57 05/09/20 08:57 05/09/20 08:57 Oxygen Flow Rate (L/min) 60 Oxygen Delivery Method Airvo Weight: 114.6 kg Body Mass Index (BMI) 40.1 Finger Stick Blood Glucose 161 Intake and Output for Last 24 Hours 05/07/20 05/08/20 05/09/20 23:59 23:59 23:59 Intake Total 1550 / 1800 1335.25 / 1335.25 500 / 500 Output Total 1200 / 1700 3200 / 3200 850 / 850 Balance 350 / 100 -1864.75 / -1864.75 -350 / -350 Microbiology Past 72 Hours 05/03/20 08:45 Blood Culture (Wb) - Left Hand Bacteria Detection (PCR) - Final Staphylococcus epidermidis 05/03/20 08:45 Blood Culture (Wb) - Left Hand Blood Culture - Final Staphylococcus epidermidis 05/03/20 08:40 Blood Culture (Wb) - Anticubital Left Blood Culture - Final No growth in 5 days. 05/04/20 10:15 Sputum, Expectorated/Coughed Gram Stain - Final 05/04/20 10:15 Sputum, Expectorated/Coughed Respiratory Culture - Final Haemophilus influenzae Streptococcus agalactiae (B) Laboratory Results 05/08/20 11:24: POC Glucose 304 H 05/08/20 16:43: POC Glucose 333 H 05/08/20 20:44: POC Glucose 341 H 05/09/20 05:50: WBC 7.4, RBC 4.75, Hgb 14.1, Hct 43.0, MCV 90.5, MCH 29.7, MCHC 32.8, RDW Std Deviation 45.5 H, RDW Coeff of Taras 13.6, Plt Count 84 L, MPV 11.3, Immature Gran % (Auto) 3.900 H, Neut % (Auto) 84.7 H, Lymph % (Auto) 7.0 L, [place] % (Auto) 4.0, Eos % (Auto) 0.3, Baso % (Auto) 0.1, Absolute Neuts (auto) 6.3, Absolute Lymphs (auto) 0.52 L, Nucleated RBC % 0 05/09/20 05:50: Sodium 136, Potassium 4.2, Chloride 102, Carbon Dioxide 31.0, Anion Gap 3 L, BUN 26 H, Creatinine 0.76, Estim Creat Clear Calc 61.14, Est GFR (MDRD) Af Amer 129, Est GFR (MDRD) Non-Af 107, BUN/Creatinine Ratio 34.1 H, Glucose 248 H, Calcium 8.7, Total Bilirubin 1.10 H, AST 35, ALT 50, Alkaline Phosphatase 90, Total Protein 6.1 L, Albumin 1.9 L, Globulin 4.2, Albumin/Globulin Ratio 0.5 L Current Medications Acetaminophen (Acetaminophen 325 Mg Tablet) 650 mg PO Q6H PRN PRN PRN Reason: Pain Score 1-10/Temp > 100.7 F Last Admin: 05/07/20 23:14 Dose: 650 mg Documented by: Al Hydroxide/Mg Hydroxide (Mag Hydrox/Al Hydrox/Simeth 30 Ml Udc) 30 ml PO Q6H PRN PRN PRN Reason: Gastric Burning Albuterol Sulfate (Albuterol Ih 8.5 Gm (Proair) Inhaler (200 Puffs)) 2.5 puff INHALATION Q2H PRN PRN PRN Reason: Shortness of Breath/Wheezing Last Admin: 05/08/20 09:42 Dose: 2.5 puff Documented by: Apixaban (Apixaban 5 Mg Tablet) 10 mg PO BID KEERTHI Last Admin: 05/09/20 08:40 Dose: 10 mg Documented by: Atenolol (Atenolol 25 Mg Tablet) 12.5 mg PO DAILY [facility] Last Admin: 05/09/20 08:38 Dose: 12.5 mg Documented by: Atorvastatin Calcium (Atorvastatin Calcium 20 Mg Tablet) 20 mg PO QHS [facility] Last Admin: 05/08/20 20:49 Dose: 20 mg Documented by: Cholecalciferol (Cholecalciferol (Vit D3) 1,000 Unit (25mcg)) 1,000 unit PO BID [facility] Last Admin: 05/09/20 08:38 Dose: 1,000 unit Documented by: Cyanocobalamin (Cyanocobalamin 500 Mcg Tablet) 1,000 mcg PO DAILY [facility] Last Admin: 05/09/20 08:44 Dose: 1,000 mcg Documented by: Dexamethasone (Dexamethasone 4 Mg Tablet) 6 mg PO DAILY [facility] Last Admin: 05/09/20 08:37 Dose: 6 mg Documented by: Dextrose (Dextrose 50%-Water 25 Gm/50 Ml Disp.Syrin) 0 gm IV X1 PRN; Protocol PRN Reason: Hypoglycemia Finasteride (Finasteride 5 Mg Tablet) 5 mg PO DAILY [facility] Last Admin: 05/09/20 08:41 Dose: 5 mg Documented by: Furosemide (Furosemide 40 Mg/4 Ml Vial) 40 mg IV DAILY [facility] Last Admin: 05/09/20 08:41 Dose: 40 mg Documented by: Glucagon (Glucagon 1 Mg/Ml Syringe) 1 mg IM .X1 PRN PRN Reason: Hypoglycemia Hydromorphone HCl (Hydromorphone 1 Mg/Ml Syringe) 1 mg IV Q4H PRN PRN PRN Reason: Pain Score 6-10 Sodium Chloride () 250 mls @ 15 mls/hr IV .[id number] PRN PRN Reason: Saline Flush Last Infusion: 05/08/20 12:21 Dose: 0 mls/hr Documented by: Sodium Chloride () 250 mls @ 15 mls/hr IV .[id number] PRN PRN Reason: Additional IVPB Infusion Ceftriaxone Sodium 2 gm/ (Sodium Chloride) 50 mls @ 100 mls/hr IV Q24 [facility] Last Admin: 05/09/20 08:52 Dose: 100 mls/hr Documented by: Insulin Glargine (Insulin Glargine 100 Units/Ml Pen) 60 units SC 1100,2200 [facility] Last Admin: 05/09/20 08:31 Dose: 60 u Documented by: Insulin Human Lispro (Insulin Lispro 100 Unit/Ml Insuln.Pen) 0 unit SC ACHS [facility]; Protocol Last Admin: 05/09/20 08:29 Dose: 4 units Documented by: Insulin Human Lispro (Insulin Lispro 100 Unit/Ml Insuln.Pen) 25 unit SC DINNER [facility] Insulin Human Lispro (Insulin Lispro 100 Unit/Ml Insuln.Pen) 25 unit SC BREAKFAST [facility] Last Admin: 05/09/20 08:31 Dose: 25 u Documented by: Insulin Human Lispro (Insulin Lispro 100 Unit/Ml Insuln.Pen) 25 unit SC LUNCH [facility] Lorazepam (Lorazepam 2 Mg/Ml Syringe) 0.5 mg IV Q4H PRN PRN PRN Reason: anxiety/agitation with BIPAP Last Admin: 05/08/20 23:15 Dose: 0.5 mg Documented by: Losartan Potassium (Losartan Potassium 50 Mg Tablet) 50 mg PO DAILY [facility] Last Admin: 05/09/20 08:40 Dose: 50 mg Documented by: Magnesium Hydroxide (Magnesium Hydroxide 30 Ml Udc) 30 ml PO DAILY PRN PRN PRN Reason: Constipation Melatonin (Melatonin 3 Mg Tablet) 3 mg PO QHS PRN PRN PRN Reason: INSOMNIA Last Admin: 05/07/20 20:26 Dose: 3 mg Documented by: Nitroglycerin (Nitroglycerin (Inpatient Use) 0.4 Mg Tab.Subl) 0.4 mg SUBLINGUAL Q5M PRN PRN Reason: CARDIAC/CHEST PAIN Ondansetron HCl (Ondansetron 4 Mg/2 Ml Vial) 4 mg IV Q8H PRN PRN PRN Reason: NAUSEA/VOMITING Oxycodone HCl (Oxycodone 5 Mg Tablet) 10 mg PO Q4H PRN PRN PRN Reason: Pain Score 4-5 Last Admin: 05/08/20 13:54 Dose: 5 mg Documented by: Prochlorperazine Edisylate (Prochlorperazine 10 Mg/2 Ml Vial) 5 mg IV Q4H PRN PRN PRN Reason: Breakthrough nausea/vomiting Sodium Chloride (0.9% Saline Lock 10 Ml Syringe) 10 - 40 ml IV UD PRN PRN Reason: SALINE FLUSH Last Admin: 05/09/20 08:41 Dose: 10 ml Documented by: Sodium Chloride (Sodium Chloride 0.65% 1 [place] Crenshaw.Btl) 2 spray NASAL TID PRN PRN PRN Reason: NASAL DRYNESS Last Admin: 05/06/20 21:47 Dose: 2 spray Documented by: Tamsulosin HCl (Tamsulosin Hcl 0.4 Mg Capsule) 0.4 mg PO QHS [facility] Last Admin: 05/08/20 20:49 Dose: 0.4 mg Documented by: STROKE Vital Signs/Narrative: Vital Signs Temp Pulse Resp BP Pulse Ox 05/09/20 08:57 97.8 F 64 18 134/64 H 93 05/09/20 07:12 59 L 22 H 90 Medical Necessity - Tobacco Use Smoking Status: Never smoker Assessment/Plan All Active Problems Hyperglycemia due to diabetes mellitus (Acute) COVID-19 (Acute) Hypoxemia (Acute) Pulmonary embolism (Acute) Sepsis (Acute) History of cholecystectomy (Resolved) Shortness of breath (Acute) The patient is a 69 year old M recently diagnosed with COVID-19 who presented with progressive shortness of breath. Patient in addition did complain of headache fatigue fever and chills. Imaging studies obtained on admission demonstrated Multiple bilateral pulmonary emboli involving branches of the lower lobe pulmonary arteries as well as multiple bilateral pulmonary infiltrates 1. Acute hypoxic respiratory failure ?Secondary to acute COVID-19 pneumonia with superimposed bilateral pulmonary embolism and infiltrate. Admitted to the cohort floor. Patient is on Decadron did continue in addition patient was placed on supplemental oxygen titrated to keep saturation greater than 90 with consultation placed to both pulmonary medicine as well as infectious disease - 05/04/2020. Patient was admitted to monitored bed. Was started on heparin drip discontinued due to drop in his platelet count to switch to Eliquis. Was also seen in consultation by Dr. Chowdhury with infectious disease did start patient on remdesivir. Patient oxygen requirements increasing currently on 8 L at rest ?05/05/2020; patient seen still requires high flow oxygen -05/06/2020; Patient seen states he thinks his condition is getting better however still remains on high flow oxygen. -05/07/2020; 05/07/2020; no significant improvement in patient's clinical condition with patient requiring BiPAP during the night. patient sputum cultures grew Haemophilus influenzae Streptococcus group B Rocephin added to patient's therapy. Blood cultures positive for staph epi thought to be contaminant 05/08/2020; patient seen, remains on high flow oxygen Airvo -05/09/2020: Patient seen appears comfortable at rest however remains on Airvo oxygen saturation in the high 80s to low 90s. He is also on Lasix 2. Acute COVID-19 pneumonitis ?Management as discussed above -05/07/2020; patient sputum cultures grew Haemophilus influenzae Streptococcus group B Rocephin added to patient's therapy. Blood cultures positive for staph epi thought to be contaminant 3. Covid induced hypercoagulable state ?Patient presented with bilateral pulmonary embolism despite being on systemic anticoagulation with Pradaxa. Pradaxa discontinued patient started on heparin 4. Paroxysmal A. fib ?Rate controlled on systemic anticoagulation with Pradaxa which is being held in view of above 5. Diabetes mellitus type II -Controlled with hyperglycemia,patient's oral hypoglycemics held. Placed on long acting insulin, Accu-Cheks a.c. and at bedtime and covered with sliding scale insulin -05/06/2020; Blood glucose remains uncontrolled subsequent adjustment made to patient insulin regimen -05/09/2020; blood glucose still remains uncontrolled did increase patient based as well as scheduled premeal insulin. 6. Hypertension - Blood pressure controlled, home medications continued with dose adjustment as needed 7. Dyslipidemia -Patient is on statin therapy, continued at home dose 8. BPH ?Patient is on tamsulosin did continue 9. Morbid obesity - With a BMI of 46.2 patient was counseled on weight reduction 10. Thrombocytopenia ?Heparin drip discontinued -05/08/2020; patient platelet count continues to rise. 84 as of today Inpatient E&M: 06887 Subs Hosp L2
[2020-05-09 12:15] LABS: Bedside Glucose 296 mg/dL (70-110)
--- NOTE | 2020-05-09 15:15 | CPS ---
Patient is eating, in no distress. Encouraged patient to wear Bipap. States he will not wear the Bipap because it morris him up. He will wear a non rebreather mask over the Airvo Cannula, by his choice.
[2020-05-09 17:15] LABS: Bedside Glucose 243 mg/dL (70-110)
[2020-05-09] MEDS: oxyCODONE 5 MG Tablet 10 MG PO (18:54)
[2020-05-09] MEDS: Atorvastatin Calcium 20 MG Tablet PO (20:36)
[2020-05-09] MEDS: Tamsulosin HCl 0.4 MG Capsule PO (20:36)
[2020-05-09 20:56] LABS: Bedside Glucose 283 mg/dL (70-110)
[2020-05-09] MEDS: LORazepam 2 MG/ML Syringe 0.5 MG IV (23:19)
[2020-05-09] MEDS: Acetaminophen 325 MG Tablet 650 MG PO (23:19)
[2020-05-09] MEDS: MELATONIN 3 MG TABLET PO (23:19)
[2020-05-10] VITALS (28 sets, daily range): BP systolic 96–141; BP diastolic 50–82; PULSE 54–80; RESP 12–26; TEMP 35.8–36.6; O2SAT 86–96
--- NOTE | 2020-05-10 00:20 | CPS ---
Patient desaturated quickly with transition to BiPAP. Poor recovery was observed. Patient was therefore transitioned to AVAPS to try to help with oxygenation. Patient is tolerating the mode change fine.
[2020-05-10 08:52] LABS: Absolute Lymphocyte Count 0.57 X10^3/uL (0.83-4.51); Absolute Neutrophil Count 6.5 X10^3/uL (2.0-7.7); Basophil# 0.03 X10^3/uL; Basophil% 0.4 % (0-1); Eosinophil# 0.05 X10^3/uL; Eosinophils% 0.7 % (0-5); Hematocrit 41.1 % (40-54); Hemoglobin 14.1 g/dL (13.0-16.5); Lymphocyte # 0.57 X10^3/ul (4.0); Lymphocyte % 7.5 % (19-41); Mean Corp Hgb Conc 34.3 g/dL (32-36); Mean Corpuscular Volume 90.3 fL (80-94); Mean Platelet Vol. 11.1 fl (6.2-12.0); Monocyte# 0.28 X10^3/uL; Monocyte% 3.7 % (0-10); NRBC Flagged by Analyzer 0 % (0-5); Neutrophil # 6.52 X10^3/uL (2.7-7.7); Neutrophil % 85.5 % (47-70); POSITIVE COUNT YES; POSITIVE DIFFERENTIAL YES; Platelet Count 80 K/mm3 (150-450); RBC Distribution Width CV 13.7 % (11.6-14.6); RBC Distribution Width SD 44.9 fl (35.1-43.9); Red Blood Count 4.55 M/mm3 (4.6-6.2); White Blood Count 7.6 K/mm3 (4.4-11.0)
[2020-05-10 08:53] LABS: Differential Indicated SCAN CRITERIA MET
[2020-05-10 09:14] LABS: ALB/GLOB Ratio 0.4 RATIO (0.9-2.4); AST(SGOT) 40 U/L (15-37); Alanine Aminotransfer ALT/SGPT 57 U/L (16-61); Albumin, Serum 1.8 g/dL (3.2-5.0); Alkaline Phosphatase 89 U/L (45-117); Anion Gap 6 (5-15); BUN 34 mg/dL (7-18); BUN/Creat Ratio 47.7 RATIO (10-20); Calcium,Total 8.8 mg/dL (8.5-10.1); Chloride 103 mmol/L (98-107); Creatinine, Serum 0.71 mg/dL (0.70-1.30); EST Glomerular Filtration Rate 116 mL/min (>60); Est Glom Filt Rate - Afr Amer 140 mL/min (>60); Estimated Creatinine Clearance 61.14 ml/min; Globulin 4.2 g/dL (2.2-4.2); Glucose 170 mg/dL (74-106); Potassium 4.3 mmol/L (3.5-5.1); Sodium Level 138 mmol/L (136-145)
[2020-05-10 09:17] LABS: Platelet Estimate MOD DEC (ADEQ)
[2020-05-10] MEDS: Insulin Lispro 100 UNIT/ML INSULN.PEN SC ×2 (09:33→12:26)
[2020-05-10] MEDS: APIXABAN 5 MG TABLET 10 MG PO ×2 (09:36→21:00)
[2020-05-10] MEDS: Insulin Lispro 100 UNIT/ML INSULN.PEN 25 UNIT SC ×2 (09:36→12:27)
[2020-05-10] MEDS: Losartan Potassium 50 MG Tablet PO (09:37)
[2020-05-10] MEDS: Finasteride 5 MG Tablet PO (09:37)
[2020-05-10] MEDS: Atenolol 25 MG Tablet 12.5 MG PO (09:37)
[2020-05-10] MEDS: dexAMETHasone 4 MG Tablet 6 MG PO (09:38)
[2020-05-10] MEDS: Furosemide 40 MG/4 ML Vial IV (09:38)
[2020-05-10 10:01] LABS: Bedside Glucose 208 mg/dL (70-110)
[2020-05-10] MEDS: oxyCODONE 5 MG Tablet 10 MG PO (10:47)
--- NOTE | 2020-05-10 11:05 | PCM.PN.PUL ---
Patient Problems: Active and Suspected Problems Hyperglycemia due to diabetes mellitus (Acute) COVID-19 (Acute) Hypoxemia (Acute) Pulmonary embolism (Acute) Sepsis (Acute) Shortness of breath (Acute) Intraperitoneal bleeding (Suspected) Subjective: Patient reports he subjectively improved compared to yesterday. Patient is still requiring a nonrebreather and Airvo to maintain marginal saturations during the day. Patient was able to tolerate breakfast this morning and wore BiPAP for approximately 5 hours overnight. Patient with very poor insight into overall condition and feels that he is doing fine despite requiring 100% FiO2 to maintain marginal saturations. - Physical Exam Vitals/I&O's: Vital Signs Temp Pulse Resp BP Pulse Ox 36.6 C 80 28 H 122/60 H 88 05/10/20 05:48 05/10/20 09:49 05/10/20 07:50 05/10/20 05:48 05/10/20 07:50 Oxygen Flow Rate (L/min) 60 Oxygen Delivery Method Airvo Weight: 114.6 kg Body Mass Index (BMI) 40.1 Finger Stick Blood Glucose 161 Intake and Output for Last 24 Hours 05/08/20 05/09/20 05/10/20 23:59 23:59 23:59 Intake Total 1335.25 / 1335.25 881.75 / 881.75 320 / 320 Output Total 3200 / 3200 2250 / 2250 300 / 300 Balance -1864.75 / -1864.75 -1368.25 / -1368.25 General: Alert, Oriented x3, Cooperative, No apparent distress, - - Moderate conversational dyspnea on Airvo and nonrebreather HEENT: Atraumatic, PERRLA, EOMI, Normocephalic, - - Glasses in place. Scleral injection noted. Oral: Moist Mucosa, No Gingival or Mucosal Lesions/ Ulcerations Neck: Supple, No JVD, No Nodes, Trachea Midline Lungs: No rhonchi, No wheeze, No rales, Diminished, - - Symmetric expansion. Cardiovascular: Regular rate, Regular Rhythm, Normal S1, Normal S2, No murmurs, No rub noted, No Gallop Abdomen: Bowel Sounds Present, Soft, Non Tender, Non-Distended, Obese Extremities: No clubbing, No cyanosis, No edema Skin: No rashes, - - Slight breakdown at the corner of nonrebreather mask Musculoskeletal: No Tenderness to Palpation of Joints or Extremities Lymphatic: No Cervical, Supraclavicular, or Inguinal Adenopathy Neurological: Cranial nerves II-XII grossly intact, Neuro grossly intact, Motor Exam 5/5 strength throughout Psych/Mental Status: Alert and oriented to time, place, person, mood and affect Microbiology Past 72 Hours 05/03/20 08:45 Blood Culture (Wb) - Left Hand Bacteria Detection (PCR) - Final Staphylococcus epidermidis 05/03/20 08:45 Blood Culture (Wb) - Left Hand Blood Culture - Final Staphylococcus epidermidis 05/03/20 08:40 Blood Culture (Wb) - Anticubital Left Blood Culture - Final No growth in 5 days. 05/04/20 10:15 Sputum, Expectorated/Coughed Gram Stain - Final 05/04/20 10:15 Sputum, Expectorated/Coughed Respiratory Culture - Final Haemophilus influenzae Streptococcus agalactiae (B) Laboratory Results 05/09/20 11:46: POC Glucose 296 H 05/09/20 16:55: POC Glucose 243 H 05/09/20 20:30: POC Glucose 283 H 05/10/20 08:36: WBC 7.6, RBC 4.55 L, Hgb 14.1, Hct 41.1, MCV 90.3, MCH 31.0, MCHC 34.3, RDW Std Deviation 44.9 H, RDW Coeff of Taras 13.7, Plt Count 80 L, MPV 11.1, Immature Gran % (Auto) 2.200 H, Neut % (Auto) 85.5 H, Lymph % (Auto) 7.5 L, [place] % (Auto) 3.7, Eos % (Auto) 0.7, Baso % (Auto) 0.4, Absolute Neuts (auto) 6.5, Absolute Lymphs (auto) 0.57 L, Nucleated RBC % 0, Differential Comment COMMENT, Platelet Estimate MOD 05/10/20 08:36: Sodium 138, Potassium 4.3, Chloride 103, Carbon Dioxide 29.0, Anion Gap 6, BUN 34 H, Creatinine 0.71, Estim Creat Clear Calc 61.14, Est GFR (MDRD) Af Amer 140, Est GFR (MDRD) Non-Af 116, BUN/Creatinine Ratio 47.7 H, Glucose 170 H, Calcium 8.8, Total Bilirubin 1.20 H, AST 40 H, ALT 57, Alkaline Phosphatase 89, Total Protein 6.0 L, Albumin 1.8 L, Globulin 4.2, Albumin/Globulin Ratio 0.4 L 05/10/20 09:30: POC Glucose 208 H Current Medications Acetaminophen (Acetaminophen 325 Mg Tablet) 650 mg PO Q6H PRN PRN PRN Reason: Pain Score 1-10/Temp > 100.7 F Last Admin: 05/09/20 23:19 Dose: 650 mg Documented by: Al Hydroxide/Mg Hydroxide (Mag Hydrox/Al Hydrox/Simeth 30 Ml Udc) 30 ml PO Q6H PRN PRN PRN Reason: Gastric Burning Albuterol Sulfate (Albuterol Ih 8.5 Gm (Proair) Inhaler (200 Puffs)) 2.5 puff INHALATION Q2H PRN PRN PRN Reason: Shortness of Breath/Wheezing Last Admin: 05/09/20 18:57 Dose: 2.5 puff Documented by: Apixaban (Apixaban 5 Mg Tablet) 10 mg PO BID [facility] Last Admin: 05/10/20 09:36 Dose: 10 mg Documented by: Atenolol (Atenolol 25 Mg Tablet) 12.5 mg PO DAILY [facility] Last Admin: 05/10/20 09:37 Dose: 12.5 mg Documented by: Atorvastatin Calcium (Atorvastatin Calcium 20 Mg Tablet) 20 mg PO QHS [facility] Last Admin: 05/09/20 20:36 Dose: 20 mg Documented by: Cholecalciferol (Cholecalciferol (Vit D3) 1,000 Unit (25mcg)) 1,000 unit PO BID [facility] Last Admin: 05/10/20 09:38 Dose: 1,000 unit Documented by: Cyanocobalamin (Cyanocobalamin 500 Mcg Tablet) 1,000 mcg PO DAILY [facility] Last Admin: 05/09/20 08:44 Dose: 1,000 mcg Documented by: Dexamethasone (Dexamethasone 4 Mg Tablet) 6 mg PO DAILY [facility] Last Admin: 05/10/20 09:38 Dose: 6 mg Documented by: Dextrose (Dextrose 50%-Water 25 Gm/50 Ml Disp.Syrin) 0 gm IV X1 PRN; Protocol PRN Reason: Hypoglycemia Finasteride (Finasteride 5 Mg Tablet) 5 mg PO DAILY [facility] Last Admin: 05/10/20 09:37 Dose: 5 mg Documented by: Furosemide (Furosemide 40 Mg/4 Ml Vial) 40 mg IV DAILY [facility] Last Admin: 05/10/20 09:38 Dose: 40 mg Documented by: Glucagon (Glucagon 1 Mg/Ml Syringe) 1 mg IM .X1 PRN PRN Reason: Hypoglycemia Hydromorphone HCl (Hydromorphone 1 Mg/Ml Syringe) 1 mg IV Q4H PRN PRN PRN Reason: Pain Score 6-10 Sodium Chloride () 250 mls @ 15 mls/hr IV .[id number] PRN PRN Reason: Saline Flush Last Infusion: 05/09/20 11:29 Dose: 0 mls/hr Documented by: Sodium Chloride () 250 mls @ 15 mls/hr IV .[id number] PRN PRN Reason: Additional IVPB Infusion Ceftriaxone Sodium 2 gm/ (Sodium Chloride) 50 mls @ 100 mls/hr IV Q24 [facility] Last Infusion: 05/09/20 09:22 Dose: Infused Documented by: Insulin Glargine (Insulin Glargine 100 Units/Ml Pen) 60 units SC 1100,2200 [facility] Last Admin: 05/09/20 20:40 Dose: 60 u Documented by: Insulin Human Lispro (Insulin Lispro 100 Unit/Ml Insuln.Pen) 0 unit SC ACHS [facility]; Protocol Last Admin: 05/10/20 09:33 Dose: 4 units Documented by: Insulin Human Lispro (Insulin Lispro 100 Unit/Ml Insuln.Pen) 25 unit SC DINNER [facility] Last Admin: 05/09/20 17:19 Dose: 25 u Documented by: Insulin Human Lispro (Insulin Lispro 100 Unit/Ml Insuln.Pen) 25 unit SC BREAKFAST [facility] Last Admin: 05/10/20 09:36 Dose: 25 u Documented by: Insulin Human Lispro (Insulin Lispro 100 Unit/Ml Insuln.Pen) 25 unit SC LUNCH [facility] Last Admin: 05/09/20 11:48 Dose: 25 u Documented by: Lorazepam (Lorazepam 2 Mg/Ml Syringe) 0.5 mg IV Q4H PRN PRN PRN Reason: anxiety/agitation with BIPAP Last Admin: 05/09/20 23:19 Dose: 0.5 mg Documented by: Losartan Potassium (Losartan Potassium 50 Mg Tablet) 50 mg PO DAILY [facility] Last Admin: 05/10/20 09:37 Dose: 50 mg Documented by: Magnesium Hydroxide (Magnesium Hydroxide 30 Ml Udc) 30 ml PO DAILY PRN PRN PRN Reason: Constipation Melatonin (Melatonin 3 Mg Tablet) 3 mg PO QHS PRN PRN PRN Reason: INSOMNIA Last Admin: 05/09/20 23:19 Dose: 3 mg Documented by: Nitroglycerin (Nitroglycerin (Inpatient Use) 0.4 Mg Tab.Subl) 0.4 mg SUBLINGUAL Q5M PRN PRN Reason: CARDIAC/CHEST PAIN Ondansetron HCl (Ondansetron 4 Mg/2 Ml Vial) 4 mg IV Q8H PRN PRN PRN Reason: NAUSEA/VOMITING Oxycodone HCl (Oxycodone 5 Mg Tablet) 10 mg PO Q4H PRN PRN PRN Reason: Pain Score 4-5 Last Admin: 05/10/20 10:47 Dose: 10 mg Documented by: Prochlorperazine Edisylate (Prochlorperazine 10 Mg/2 Ml Vial) 5 mg IV Q4H PRN PRN PRN Reason: Breakthrough nausea/vomiting Sodium Chloride (0.9% Saline Lock 10 Ml Syringe) 10 - 40 ml IV UD PRN PRN Reason: SALINE FLUSH Last Admin: 05/09/20 23:20 Dose: 10 ml Documented by: Sodium Chloride (Sodium Chloride 0.65% 1 [place] Mason.Btl) 2 spray NASAL TID PRN PRN PRN Reason: NASAL DRYNESS Last Admin: 05/06/20 21:47 Dose: 2 spray Documented by: Tamsulosin HCl (Tamsulosin Hcl 0.4 Mg Capsule) 0.4 mg PO QHS [facility] Last Admin: 05/09/20 20:36 Dose: 0.4 mg Documented by: Medical Necessity - Tobacco Use Smoking Status: Never smoker Assessment/Plan All Active Problems Hyperglycemia due to diabetes mellitus (Acute) COVID-19 (Acute) Hypoxemia (Acute) Pulmonary embolism (Acute) Sepsis (Acute) History of cholecystectomy (Resolved) Shortness of breath (Acute) RECOMMENDATIONS: 1. Continue to wean FiO2 to maintain saturations at or above 90%. 2. Continue Decadron with plans to complete a 10-day treatment course. 3. Continue systemic anticoagulation with Eliquis. 4. Encourage incentive spirometer use and mobilize patient as tolerated. 5. Continue antimicrobials per ID recommendations. 6. Continue attempts at gentle diuresis as tolerated by hemodynamics and renal function. 7. BiPAP, if needed, can be utilized to improve oxygenation and hopefully assist with alveolar recruitment. Cannot exclude the need for intubation IMPRESSIONS: 1. Acute hypoxemic respiratory failure secondary to COVID-19 pneumonia and bilateral pulmonary emboli Plan to continue current supportive measures, including Decadron with plans to complete a 10-day treatment course. Goal to maintain oxygen saturations at or above 90%. The patient has completed a treatment course of remdesivir. He remains on antimicrobials per ID recommendations, given Haemophilus isolated from sputum culture. The patient will also be maintained on IV diuretic therapy as tolerated by hemodynamics and renal function. If needed, the patient can be transition to BiPAP to assist with alveolar recruitment. Spent significant amount of time relating the patient is on 100% FiO2 and is still at risk for need for intubation. Patient is very clear that he would be intubated if necessary, but does not appear to realize just how close he currently is to requiring this intervention. Patient is willing to wear the BiPAP during the day if it would help. Total discussion time for CODE STATUS was 17 minutes. 2. Diabetes mellitus/hypertension/hyperlipidemia/BPH/obesity/paroxysmal atrial fibrillation Complicates care, management, recovery and prognosis. Recommend complete discontinuation of Pradaxa given high risk for bleeding complications. Continue home medications as indicated. Inpatient E&M: 69287 [facility] Hosp L3 Procedures: 61254 Advncd Care Plan 30 Min
[2020-05-10] MEDS: Cyanocobalamin 500 MCG Tablet 1000 MCG PO (12:01)
[2020-05-10 12:41] LABS: Bedside Glucose 238 mg/dL (70-110)
[2020-05-10] MEDS: 0.9% Saline Lock 10 ML Syringe IV ×2 (12:51→22:41)
--- NOTE | 2020-05-10 13:01 | RAD_ITS ---
STUDY: X-RAY CHEST REASON FOR EXAM: Male, 69 years old. Hypoxia, COVID, bilateral PE TECHNIQUE: Single AP portable view of the chest. COMPARISON: Comparison is made with prior study dated 10/31/2020. FINDINGS: EKG electrodes are seen. Since prior study, there is evidence of patchy infiltrates in the peripheral distribution involving both lungs slightly worse on the left side. There is no demonstrated pleural abnormality. Normal size heart. Normal mediastinum and cyn. Normal visualized pulmonary arteries. Normal visualized aortic arch and descending thoracic aorta. Normal visualized thoracic spine. Normal visualized ribs, clavicles, and shoulders. There is no demonstrated abnormality of the visualized soft tissue structures of the upper abdomen. RAD/Chest 1 View (Portable) IMPRESSION: Patchy bilateral pulmonary infiltrates in a peripheral distribution worse in the left hemithorax. Findings are in keeping with Covid. Electronically Signed: Casimiro Marie MD at 13:48 EST , Service support ,
--- NOTE | 2020-05-10 13:24 | PCM.PN.HOSP ---
Patient Problems: Active and Suspected Problems Hyperglycemia due to diabetes mellitus (Acute) COVID-19 (Acute) Hypoxemia (Acute) Pulmonary embolism (Acute) Sepsis (Acute) Shortness of breath (Acute) Intraperitoneal bleeding (Suspected) Reason for Visit: Follow-up on respiratory failure/COVID-19 pneumonia/bilateral multiple PE Subjective: Patient was seen and examined. His oxygen saturation is still low on Airvo; he has been refusing use of BiPAP. He agreed to use BiPAP more frequently when discussed with pulmonology. Objective: Physical exam: General: Alert, Cooperative, No apparent distress HEENT: Atraumatic, PERRLA, Normocephalic Oral: No Gingival or Mucosal Lesions/ Ulcerations Neck: Supple, No Nodes, Trachea Midline Lungs:Diminished, appears slightly dyspneic Cardiovascular: Regular rate, Regular Rhythm, Normal S1, Normal S2, No murmurs Abdomen: Bowel Sounds Present, Soft, Non Tender, Obese Extremities: No edema Skin: No breakdown Musculoskeletal: No Tenderness to Palpation of Joints or Extremities, No Muscle Wasting Lymphatic: No Cervical, Supraclavicular, or Inguinal Adenopathy Neurological: Cranial nerves II-XII grossly intact, Neuro grossly intact Psych/Mental Status: Normal Affect, Appropriate Vitals/I&O's: Vital Signs Temp Pulse Resp BP Pulse Ox 96.5 F L 56 L 20 H 114/62 88 05/10/20 12:17 05/10/20 12:17 05/10/20 12:17 05/10/20 12:17 05/10/20 12:17 Oxygen Flow Rate (L/min) 60 Oxygen Delivery Method Bi-pap Weight: 114.6 kg Body Mass Index (BMI) 40.1 Finger Stick Blood Glucose 161 Intake and Output for Last 24 Hours 05/08/20 05/09/20 05/10/20 23:59 23:59 23:59 Intake Total 1335.25 / 1335.25 881.75 / 881.75 805 / 805 Output Total 3200 / 3200 2250 / 2250 1450 / 1450 Balance -1864.75 / -1864.75 -1368.25 / -1368.25 -645 / -645 Microbiology Past 72 Hours 05/03/20 08:45 Blood Culture (Wb) - Left Hand Bacteria Detection (PCR) - Final Staphylococcus epidermidis 05/03/20 08:45 Blood Culture (Wb) - Left Hand Blood Culture - Final Staphylococcus epidermidis 05/03/20 08:40 Blood Culture (Wb) - Anticubital Left Blood Culture - Final No growth in 5 days. Laboratory Results 05/09/20 16:55: POC Glucose 243 H 05/09/20 20:30: POC Glucose 283 H 05/10/20 08:36: WBC 7.6, RBC 4.55 L, Hgb 14.1, Hct 41.1, MCV 90.3, MCH 31.0, MCHC 34.3, RDW Std Deviation 44.9 H, RDW Coeff of Taras 13.7, Plt Count 80 L, MPV 11.1, Immature Gran % (Auto) 2.200 H, Neut % (Auto) 85.5 H, Lymph % (Auto) 7.5 L, [place] % (Auto) 3.7, Eos % (Auto) 0.7, Baso % (Auto) 0.4, Absolute Neuts (auto) 6.5, Absolute Lymphs (auto) 0.57 L, Nucleated RBC % 0, Differential Comment COMMENT, Platelet Estimate MOD 05/10/20 08:36: Sodium 138, Potassium 4.3, Chloride 103, Carbon Dioxide 29.0, Anion Gap 6, BUN 34 H, Creatinine 0.71, Estim Creat Clear Calc 61.14, Est GFR (MDRD) Af Amer 140, Est GFR (MDRD) Non-Af 116, BUN/Creatinine Ratio 47.7 H, Glucose 170 H, Calcium 8.8, Total Bilirubin 1.20 H, AST 40 H, ALT 57, Alkaline Phosphatase 89, Total Protein 6.0 L, Albumin 1.8 L, Globulin 4.2, Albumin/Globulin Ratio 0.4 L 05/10/20 09:30: POC Glucose 208 H 05/10/20 12:25: POC Glucose 238 H Current Medications Acetaminophen (Acetaminophen 325 Mg Tablet) 650 mg PO Q6H PRN PRN PRN Reason: Pain Score 1-10/Temp > 100.7 F Last Admin: 05/09/20 23:19 Dose: 650 mg Documented by: Al Hydroxide/Mg Hydroxide (Mag Hydrox/Al Hydrox/Simeth 30 Ml Udc) 30 ml PO Q6H PRN PRN PRN Reason: Gastric Burning Albuterol Sulfate (Albuterol Ih 8.5 Gm (Proair) Inhaler (200 Puffs)) 2.5 puff INHALATION Q2H PRN PRN PRN Reason: Shortness of Breath/Wheezing Last Admin: 05/09/20 18:57 Dose: 2.5 puff Documented by: Apixaban (Apixaban 5 Mg Tablet) 10 mg PO BID [facility] Last Admin: 05/10/20 09:36 Dose: 10 mg Documented by: Atenolol (Atenolol 25 Mg Tablet) 12.5 mg PO DAILY [facility] Last Admin: 05/10/20 09:37 Dose: 12.5 mg Documented by: Atorvastatin Calcium (Atorvastatin Calcium 20 Mg Tablet) 20 mg PO QHS [facility] Last Admin: 05/09/20 20:36 Dose: 20 mg Documented by: Cholecalciferol (Cholecalciferol (Vit D3) 1,000 Unit (25mcg)) 1,000 unit PO BID [facility] Last Admin: 05/10/20 09:38 Dose: 1,000 unit Documented by: Cyanocobalamin (Cyanocobalamin 500 Mcg Tablet) 1,000 mcg PO DAILY [facility] Last Admin: 05/10/20 12:01 Dose: 1,000 mcg Documented by: Dexamethasone (Dexamethasone 4 Mg Tablet) 6 mg PO DAILY [facility] Last Admin: 05/10/20 09:38 Dose: 6 mg Documented by: Dextrose (Dextrose 50%-Water 25 Gm/50 Ml Disp.Syrin) 0 gm IV X1 PRN; Protocol PRN Reason: Hypoglycemia Finasteride (Finasteride 5 Mg Tablet) 5 mg PO DAILY [facility] Last Admin: 05/10/20 09:37 Dose: 5 mg Documented by: Furosemide (Furosemide 40 Mg/4 Ml Vial) 40 mg IV DAILY [facility] Last Admin: 05/10/20 09:38 Dose: 40 mg Documented by: Glucagon (Glucagon 1 Mg/Ml Syringe) 1 mg IM .X1 PRN PRN Reason: Hypoglycemia Hydromorphone HCl (Hydromorphone 1 Mg/Ml Syringe) 1 mg IV Q4H PRN PRN PRN Reason: Pain Score 6-10 Sodium Chloride () 250 mls @ 15 mls/hr IV .[id number] PRN PRN Reason: Saline Flush Last Infusion: 05/10/20 12:52 Dose: 0 mls/hr Documented by: Sodium Chloride () 250 mls @ 15 mls/hr IV .[id number] PRN PRN Reason: Additional IVPB Infusion Ceftriaxone Sodium 2 gm/ (Sodium Chloride) 50 mls @ 100 mls/hr IV Q24 [facility] Last Infusion: 05/10/20 12:31 Dose: Infused Documented by: Insulin Glargine (Insulin Glargine 100 Units/Ml Pen) 60 units SC 1100,2200 [facility] Last Admin: 05/10/20 12:01 Dose: 60 u Documented by: Insulin Human Lispro (Insulin Lispro 100 Unit/Ml Insuln.Pen) 0 unit SC ACHS [facility]; Protocol Last Admin: 05/10/20 12:26 Dose: 4 units Documented by: Insulin Human Lispro (Insulin Lispro 100 Unit/Ml Insuln.Pen) 25 unit SC DINNER [facility] Last Admin: 05/09/20 17:19 Dose: 25 u Documented by: Insulin Human Lispro (Insulin Lispro 100 Unit/Ml Insuln.Pen) 25 unit SC BREAKFAST [facility] Last Admin: 05/10/20 09:36 Dose: 25 u Documented by: Insulin Human Lispro (Insulin Lispro 100 Unit/Ml Insuln.Pen) 25 unit SC LUNCH [facility] Last Admin: 05/10/20 12:27 Dose: 25 u Documented by: Lorazepam (Lorazepam 2 Mg/Ml Syringe) 0.5 mg IV Q4H PRN PRN PRN Reason: anxiety/agitation with BIPAP Last Admin: 05/09/20 23:19 Dose: 0.5 mg Documented by: Losartan Potassium (Losartan Potassium 50 Mg Tablet) 50 mg PO DAILY [facility] Last Admin: 05/10/20 09:37 Dose: 50 mg Documented by: Magnesium Hydroxide (Magnesium Hydroxide 30 Ml Udc) 30 ml PO DAILY PRN PRN PRN Reason: Constipation Melatonin (Melatonin 3 Mg Tablet) 3 mg PO QHS PRN PRN PRN Reason: INSOMNIA Last Admin: 05/09/20 23:19 Dose: 3 mg Documented by: Nitroglycerin (Nitroglycerin (Inpatient Use) 0.4 Mg Tab.Subl) 0.4 mg SUBLINGUAL Q5M PRN PRN Reason: CARDIAC/CHEST PAIN Ondansetron HCl (Ondansetron 4 Mg/2 Ml Vial) 4 mg IV Q8H PRN PRN PRN Reason: NAUSEA/VOMITING Oxycodone HCl (Oxycodone 5 Mg Tablet) 10 mg PO Q4H PRN PRN PRN Reason: Pain Score 4-5 Last Admin: 05/10/20 10:47 Dose: 10 mg Documented by: Prochlorperazine Edisylate (Prochlorperazine 10 Mg/2 Ml Vial) 5 mg IV Q4H PRN PRN PRN Reason: Breakthrough nausea/vomiting Sodium Chloride (0.9% Saline Lock 10 Ml Syringe) 10 - 40 ml IV UD PRN PRN Reason: SALINE FLUSH Last Admin: 05/10/20 12:51 Dose: 10 ml Documented by: Sodium Chloride (Sodium Chloride 0.65% 1 [place].Btl) 2 spray NASAL TID PRN PRN PRN Reason: NASAL DRYNESS Last Admin: 05/06/20 21:47 Dose: 2 spray Documented by: Tamsulosin HCl (Tamsulosin Hcl 0.4 Mg Capsule) 0.4 mg PO QHS [facility] Last Admin: 05/09/20 20:36 Dose: 0.4 mg Documented by: STROKE Vital Signs/Narrative: Vital Signs Temp Pulse Resp BP Pulse Ox 05/10/20 12:17 96.5 F L 56 L 20 H 114/62 88 05/10/20 11:12 78 24 H 88 05/10/20 10:00 68 05/10/20 09:49 80 Medical Necessity - Tobacco Use Smoking Status: Never smoker Assessment/Plan All Active Problems Hyperglycemia due to diabetes mellitus (Acute) COVID-19 (Acute) Hypoxemia (Acute) Pulmonary embolism (Acute) Sepsis (Acute) History of cholecystectomy (Resolved) Shortness of breath (Acute) 1. Acute respiratory failure secondary to COVID-19 pneumonia/bilateral PE, slightly worsening Continue with breathing treatments, po steroids, encourage use of incentive spirometer. Wean off oxygen for SPO2 more than 94% Pulmonology following 2. Acute COVID-19 pneumonia with hypoxia, with possible concomitant HCAP Sputum cultures positive for Haemophilus influenza and Streptococcus agalactiae Continue IV ceftriaxone and Decadron 3. Acute bilateral PE likely secondary to #2 Continue on apixaban 4. Staph epidermidis bacteremia, likely contaminant Continue on IV ceftriaxone 5. Hypertension/hyperlipidemia/paroxysmal atrial fibrillation, appears stable, complicates care Continue on atenolol, atorvastatin, losartan 6. Type II DM, blood sugars fairly uncontrolled, Continue Lantus and premeal insulin as well as insulin sliding scale 7. DVT prophylaxis?on apixaban Inpatient E&M: 38856 Subs Hosp L3
[2020-05-10 13:26] LABS: Allen Test Positive; Base Excess 3 mmol/L (-2 to +2); Bicarbonate 26.5 mmol/L (22-26); Blood Gas Specimen Type ART; FI02 100; Mode BiLevel; O2 Delivery Device BiPAP; PEEP 12; PO2 57 mmHG (75-100); RR 12; SITE R Brach; SO2 91 % (95-99); Total Carbon Dioxide 28 mmol/L; Vt 500; pCO2 36.2 mmHg (35-45); pH 7.47 (7.35-7.45)
--- NOTE | 2020-05-10 14:20 | NURSING ---
REPORT CALLED TO ICU NURSE.
--- NOTE | 2020-05-10 15:36 | PCM.PN.ID ---
Patient Problems: Active and Suspected Problems Hyperglycemia due to diabetes mellitus (Acute) COVID-19 (Acute) Hypoxemia (Acute) Pulmonary embolism (Acute) Sepsis (Acute) Shortness of breath (Acute) Intraperitoneal bleeding (Suspected) Subjective: Moved to icu with hypoxia. Feeling ok, no sputum. - Physical Exam Vitals/I&O's: Vital Signs Temp Pulse Resp BP Pulse Ox 96.5 F L 59 L 20 H 118/58 L 94 05/10/20 12:17 05/10/20 15:15 05/10/20 15:15 05/10/20 15:15 05/10/20 15:15 Oxygen Flow Rate (L/min) 60 Oxygen Delivery Method Bi-pap Weight: 114.6 kg Body Mass Index (BMI) 40.1 Finger Stick Blood Glucose 161 Intake and Output for Last 24 Hours 05/08/20 05/09/20 05/10/20 23:59 23:59 23:59 Intake Total 1335.25 / 1335.25 881.75 / 881.75 805 / 805 Output Total 3200 / 3200 2250 / 2250 1450 / 1450 Balance -1864.75 / -1864.75 -1368.25 / -1368.25 -645 / -645 General: Alert, Cooperative, No apparent distress Lungs: Diminished Cardiovascular: Regular rate, Regular Rhythm Abdomen: Soft, Non Tender, Non-Distended Skin: No rashes Microbiology Past 72 Hours 05/03/20 08:45 Blood Culture (Wb) - Left Hand Bacteria Detection (PCR) - Final Staphylococcus epidermidis 05/03/20 08:45 Blood Culture (Wb) - Left Hand Blood Culture - Final Staphylococcus epidermidis 05/03/20 08:40 Blood Culture (Wb) - Anticubital Left Blood Culture - Final No growth in 5 days. Laboratory Results 05/09/20 16:55: POC Glucose 243 H 05/09/20 20:30: POC Glucose 283 H 05/10/20 08:36: WBC 7.6, RBC 4.55 L, Hgb 14.1, Hct 41.1, MCV 90.3, MCH 31.0, MCHC 34.3, RDW Std Deviation 44.9 H, RDW Coeff of Taras 13.7, Plt Count 80 L, MPV 11.1, Immature Gran % (Auto) 2.200 H, Neut % (Auto) 85.5 H, Lymph % (Auto) 7.5 L, [place] % (Auto) 3.7, Eos % (Auto) 0.7, Baso % (Auto) 0.4, Absolute Neuts (auto) 6.5, Absolute Lymphs (auto) 0.57 L, Nucleated RBC % 0, Differential Comment COMMENT, Platelet Estimate MOD 05/10/20 08:36: Sodium 138, Potassium 4.3, Chloride 103, Carbon Dioxide 29.0, Anion Gap 6, BUN 34 H, Creatinine 0.71, Estim Creat Clear Calc 61.14, Est GFR (MDRD) Af Amer 140, Est GFR (MDRD) Non-Af 116, BUN/Creatinine Ratio 47.7 H, Glucose 170 H, Calcium 8.8, Total Bilirubin 1.20 H, AST 40 H, ALT 57, Alkaline Phosphatase 89, Total Protein 6.0 L, Albumin 1.8 L, Globulin 4.2, Albumin/Globulin Ratio 0.4 L 05/10/20 09:30: POC Glucose 208 H 05/10/20 12:25: POC Glucose 238 H 05/10/20 13:19: Specimen Type ART, Sample Site R Brach, pH 7.47 H, Bicarbonate Actual 26.5 H, Total CO2 28, Base Excess 3 H, O2 Saturation 91 L, O2 % 100, ABG pCO2 36.2, ABG pO2 57 L, Agapito Test Positive, Respiration Rate 12, O2 Delivery Device BiPAP, Vent Mode BiLevel, Tidal Volume 500, POC PEEP 12 Current Medications Acetaminophen (Acetaminophen 325 Mg Tablet) 650 mg PO Q6H PRN PRN PRN Reason: Pain Score 1-10/Temp > 100.7 F Last Admin: 05/09/20 23:19 Dose: 650 mg Documented by: Al Hydroxide/Mg Hydroxide (Mag Hydrox/Al Hydrox/Simeth 30 Ml Udc) 30 ml PO Q6H PRN PRN PRN Reason: Gastric Burning Albuterol Sulfate (Albuterol Ih 8.5 Gm (Proair) Inhaler (200 Puffs)) 2.5 puff INHALATION Q2H PRN PRN PRN Reason: Shortness of Breath/Wheezing Last Admin: 05/09/20 18:57 Dose: 2.5 puff Documented by: Apixaban (Apixaban 5 Mg Tablet) 10 mg PO BID [facility] Last Admin: 05/10/20 09:36 Dose: 10 mg Documented by: Atenolol (Atenolol 25 Mg Tablet) 12.5 mg PO DAILY [facility] Last Admin: 05/10/20 09:37 Dose: 12.5 mg Documented by: Atorvastatin Calcium (Atorvastatin Calcium 20 Mg Tablet) 20 mg PO QHS [facility] Last Admin: 05/09/20 20:36 Dose: 20 mg Documented by: Cholecalciferol (Cholecalciferol (Vit D3) 1,000 Unit (25mcg)) 1,000 unit PO BID [facility] Last Admin: 05/10/20 09:38 Dose: 1,000 unit Documented by: Cyanocobalamin (Cyanocobalamin 500 Mcg Tablet) 1,000 mcg PO DAILY [facility] Last Admin: 05/10/20 12:01 Dose: 1,000 mcg Documented by: Dexamethasone (Dexamethasone 4 Mg Tablet) 6 mg PO DAILY [facility] Last Admin: 05/10/20 09:38 Dose: 6 mg Documented by: Dextrose (Dextrose 50%-Water 25 Gm/50 Ml Disp.Syrin) 0 gm IV X1 PRN; Protocol PRN Reason: Hypoglycemia Finasteride (Finasteride 5 Mg Tablet) 5 mg PO DAILY [facility] Last Admin: 05/10/20 09:37 Dose: 5 mg Documented by: Furosemide (Furosemide 40 Mg/4 Ml Vial) 40 mg IV DAILY [facility] Last Admin: 05/10/20 09:38 Dose: 40 mg Documented by: Glucagon (Glucagon 1 Mg/Ml Syringe) 1 mg IM .X1 PRN PRN Reason: Hypoglycemia Hydromorphone HCl (Hydromorphone 1 Mg/Ml Syringe) 1 mg IV Q4H PRN PRN PRN Reason: Pain Score 6-10 Sodium Chloride () 250 mls @ 15 mls/hr IV .[id number] PRN PRN Reason: Saline Flush Last Infusion: 05/10/20 14:57 Dose: Infused Documented by: Sodium Chloride () 250 mls @ 15 mls/hr IV .[id number] PRN PRN Reason: Additional IVPB Infusion Ceftriaxone Sodium 2 gm/ (Sodium Chloride) 50 mls @ 100 mls/hr IV Q24 [facility] Last Infusion: 05/10/20 12:31 Dose: Infused Documented by: Insulin Glargine (Insulin Glargine 100 Units/Ml Pen) 64 units SC 1100,2200 [facility] Insulin Human Lispro (Insulin Lispro 100 Unit/Ml Insuln.Pen) 25 unit SC DINNER [facility] Last Admin: 05/09/20 17:19 Dose: 25 u Documented by: Insulin Human Lispro (Insulin Lispro 100 Unit/Ml Insuln.Pen) 25 unit SC BREAKFAST [facility] Last Admin: 05/10/20 09:36 Dose: 25 u Documented by: Insulin Human Lispro (Insulin Lispro 100 Unit/Ml Insuln.Pen) 25 unit SC LUNCH [facility] Last Admin: 05/10/20 12:27 Dose: 25 u Documented by: Insulin Human Lispro (Insulin Lispro 100 Unit/Ml Insuln.Pen) 0 unit SC Q6 [facility]; Protocol Lorazepam (Lorazepam 2 Mg/Ml Syringe) 0.5 mg IV Q4H PRN PRN PRN Reason: anxiety/agitation with BIPAP Last Admin: 05/09/20 23:19 Dose: 0.5 mg Documented by: Losartan Potassium (Losartan Potassium 50 Mg Tablet) 50 mg PO DAILY [facility] Last Admin: 05/10/20 09:37 Dose: 50 mg Documented by: Magnesium Hydroxide (Magnesium Hydroxide 30 Ml Udc) 30 ml PO DAILY PRN PRN PRN Reason: Constipation Melatonin (Melatonin 3 Mg Tablet) 3 mg PO QHS PRN PRN PRN Reason: INSOMNIA Last Admin: 05/09/20 23:19 Dose: 3 mg Documented by: Nitroglycerin (Nitroglycerin (Inpatient Use) 0.4 Mg Tab.Subl) 0.4 mg SUBLINGUAL Q5M PRN PRN Reason: CARDIAC/CHEST PAIN Ondansetron HCl (Ondansetron 4 Mg/2 Ml Vial) 4 mg IV Q8H PRN PRN PRN Reason: NAUSEA/VOMITING Oxycodone HCl (Oxycodone 5 Mg Tablet) 10 mg PO Q4H PRN PRN PRN Reason: Pain Score 4-5 Last Admin: 05/10/20 10:47 Dose: 10 mg Documented by: Prochlorperazine Edisylate (Prochlorperazine 10 Mg/2 Ml Vial) 5 mg IV Q4H PRN PRN PRN Reason: Breakthrough nausea/vomiting Sodium Chloride (0.9% Saline Lock 10 Ml Syringe) 10 - 40 ml IV UD PRN PRN Reason: SALINE FLUSH Last Admin: 05/10/20 12:51 Dose: 10 ml Documented by: Sodium Chloride (Sodium Chloride 0.65% 1 [place].Btl) 2 spray NASAL TID PRN PRN PRN Reason: NASAL DRYNESS Last Admin: 05/06/20 21:47 Dose: 2 spray Documented by: Tamsulosin HCl (Tamsulosin Hcl 0.4 Mg Capsule) 0.4 mg PO QHS [facility] Last Admin: 05/09/20 20:36 Dose: 0.4 mg Documented by: Medical Necessity - Tobacco Use Smoking Status: Never smoker Route of nutrition/ use of supplements: [] Nutritional Intake: [] IV Site: [] Rao Catheter: [] - Assessment/Plan Antibiotics: [] Assessment/Plan: [] Active and Suspected Problems Hyperglycemia due to diabetes mellitus (Acute) COVID-19 (Acute) Hypoxemia (Acute) Pulmonary embolism (Acute) Sepsis (Acute) Shortness of breath (Acute) Intraperitoneal bleeding (Suspected) covid with hypoxia and PEs - sx started 04/23, (+) covid as an outpt. On dex, anticoagulation, and completed remdesivir. 1 of 2 bcx with CoNS, consistent with contaminant. Sputum with haemophilus and strep, cont ceftriaxone, day 6. O2 worse, moved to icu. Will follow, d/w Dr. López
[2020-05-10 17:11] LABS: Bedside Glucose 91 mg/dL (70-110)
[2020-05-10] MEDS: Tamsulosin HCl 0.4 MG Capsule PO (21:00)
[2020-05-10] MEDS: MELATONIN 3 MG TABLET PO (21:00)
[2020-05-10] MEDS: Atorvastatin Calcium 20 MG Tablet PO (21:00)
[2020-05-10 21:20] LABS: Bedside Glucose 89 mg/dL (70-110)
[2020-05-10] MEDS: LORazepam 2 MG/ML Syringe 0.5 MG IV (22:43)
[2020-05-11] VITALS (35 sets, daily range): BP systolic 93–133; BP diastolic 46–92; PULSE 51–70; RESP 12–28; TEMP 36.1–37; O2SAT 82–95
[2020-05-11 00:31] LABS: Bedside Glucose 82 mg/dL (70-110)
[2020-05-11] MEDS: Dextrose 50%-Water 25 GM/50 ML DISP.SYRIN IV (03:54)
[2020-05-11 03:55] LABS: Absolute Lymphocyte Count 1.14 X10^3/uL (0.83-4.51); Absolute Neutrophil Count 17.9 X10^3/uL (2.0-7.7); Basophil% 0.5 % (0-1); Eosinophil# 0.02 X10^3/uL; Eosinophils% 0.1 % (0-5); Hematocrit 43.9 % (40-54); Hemoglobin 15.3 g/dL (13.0-16.5); Lymphocyte # 1.14 X10^3/ul (4.0); Lymphocyte % 5.6 % (19-41); Mean Corp Hgb Conc 34.9 g/dL (32-36); Mean Corpuscular Hgb 31.4 pg (27.0-32.0); Mean Corpuscular Volume 90.1 fL (80-94); Mean Platelet Vol. 10.4 fl (6.2-12.0); Monocyte# 0.71 X10^3/uL; Monocyte% 3.5 % (0-10); NRBC Flagged by Analyzer 0 % (0-5); Neutrophil # 17.85 X10^3/uL (2.7-7.7); Neutrophil % 88.2 % (47-70); Platelet Count 182 K/mm3 (150-450); RBC Distribution Width SD 45.4 fl (35.1-43.9); Red Blood Count 4.87 M/mm3 (4.6-6.2); White Blood Count 20.2 K/mm3 (4.4-11.0)
--- NOTE | 2020-05-11 03:58 | NURSING ---
Pt states his stomach is in knots, like blood sugar is low. Checked blood glucose, 70mg/dl. 12.5 grams of D50 given as per protocol. Pt is NPO.
--- NOTE | 2020-05-11 04:10 | NURSING ---
Repeat glucose 134 mg/dl after admin of 12.5g D50.
[2020-05-11 04:11] LABS: ALB/GLOB Ratio 0.4 RATIO (0.9-2.4); AST(SGOT) 43 U/L (15-37); Alanine Aminotransfer ALT/SGPT 58 U/L (16-61); Albumin, Serum 1.8 g/dL (3.2-5.0); Alkaline Phosphatase 92 U/L (45-117); Anion Gap 9 (5-15); BUN 38 mg/dL (7-18); BUN/Creat Ratio 47.4 RATIO (10-20); Calcium,Total 8.7 mg/dL (8.5-10.1); Chloride 101 mmol/L (98-107); EST Glomerular Filtration Rate 101 mL/min (>60); Est Glom Filt Rate - Afr Amer 122 mL/min (>60); Estimated Creatinine Clearance 76.43 ml/min; Globulin 4.7 g/dL (2.2-4.2); Glucose 73 mg/dL (74-106); Potassium 4.3 mmol/L (3.5-5.1); Protein, Total 6.5 g/dL (6.4-8.2); Sodium Level 138 mmol/L (136-145)
--- NOTE | 2020-05-11 07:12 | PN_ITS ---
Patient Problems: Active and Suspected Problems Hyperglycemia due to diabetes mellitus (Acute) COVID-19 (Acute) Hypoxemia (Acute) Pulmonary embolism (Acute) Sepsis (Acute) Shortness of breath (Acute) Intraperitoneal bleeding (Suspected) Reason for Visit: Follow-up on respiratory failure/COVID-19 pneumonia/bilateral multiple PE Subjective: Patient seen and examined. Remains on Airvo; saturating between 90% on FiO2 100%. Objective: Physical exam: General: Alert, cooperative, no apparent distress HEENT: Atraumatic, PERRLA, Normocephalic Oral: No Gingival or Mucosal Lesions/ Ulcerations Neck: Supple, No Nodes, Trachea Midline Lungs:Diminished, appears slightly dyspneic Cardiovascular: Regular rate, Regular Rhythm, Normal S1, Normal S2, No murmurs Abdomen: Bowel Sounds Present, Soft, Non Tender, Obese Extremities: No edema Skin: No breakdown Musculoskeletal: No Tenderness to Palpation of Joints or Extremities, No Muscle Wasting Lymphatic: No cervical, supraclavicular, or inguinal adenopathy Neurological: Cranial nerves II-XII grossly intact, Neuro grossly intact Psych/Mental Status: Normal Affect, Appropriate Vitals/I&O's: Vital Signs Temp Pulse Resp BP Pulse Ox 97.2 F L 58 L 16 95/55 L 93 05/11/20 04:00 05/11/20 07:00 05/11/20 07:00 05/11/20 07:00 05/11/20 07:00 Oxygen Flow Rate (L/min) 60 Oxygen Delivery Method Bi-pap Weight: 120.5 kg Body Mass Index (BMI) 40.1 Finger Stick Blood Glucose 161 Intake and Output for Last 24 Hours 05/09/20 05/10/20 05/11/20 23:59 23:59 23:59 Intake Total 881.75 / 881.75 805 / 805 Output Total 2250 / 2250 1750 / 2050 550 / 550 Balance -1368.25 / -1368.25 -945 / -1245 -550 / -550 Microbiology Past 72 Hours 05/03/20 08:45 Blood Culture (Wb) - Left Hand Bacteria Detection (PCR) - Final Staphylococcus epidermidis 05/03/20 08:45 Blood Culture (Wb) - Left Hand Blood Culture - Final Staphylococcus epidermidis 05/03/20 08:40 Blood Culture (Wb) - Anticubital Left Blood Culture - Final No growth in 5 days. Laboratory Results 05/10/20 08:36: WBC 7.6, RBC 4.55 L, Hgb 14.1, Hct 41.1, MCV 90.3, MCH 31.0, MCHC 34.3, RDW Std Deviation 44.9 H, RDW Coeff of Taras 13.7, Plt Count 80 L, MPV 11.1, Immature Gran % (Auto) 2.200 H, Neut % (Auto) 85.5 H, Lymph % (Auto) 7.5 L , [place] % (Auto) 3.7, Eos % (Auto) 0.7, Baso % (Auto) 0.4, Absolute Neuts (auto) 6.5, Absolute Lymphs (auto) 0.57 L, Nucleated RBC % 0, Differential Comment COMMENT, Platelet Estimate MOD 05/10/20 08:36: Sodium 138, Potassium 4.3, Chloride 103, Carbon Dioxide 29.0, Anion Gap 6, BUN 34 H, Creatinine 0.71, Estim Creat Clear Calc 61.14, Est GFR (MDRD) Af Amer 140, Est GFR (MDRD) Non-Af 116, BUN/Creatinine Ratio 47.7 H, Glucose 170 H, Calcium 8.8, Total Bilirubin 1.20 H, AST 40 H, ALT 57, Alkaline Phosphatase 89, Total Protein 6.0 L, Albumin 1.8 L, Globulin 4.2, Albumin/Globulin Ratio 0.4 L 05/10/20 09:30: POC Glucose 208 H 05/10/20 12:25: POC Glucose 238 H 05/10/20 13:19: Specimen Type ART, Sample Site R Brach, pH 7.47 H, Bicarbonate Actual 26.5 H, Total CO2 28, Base Excess 3 H, O2 Saturation 91 L, O2 % 100, ABG pCO2 36.2, ABG pO2 57 L, Agapito Test Positive, Respiration Rate 12, O2 Delivery Device BiPAP, Vent Mode BiLevel, Tidal Volume 500, POC PEEP 12 05/10/20 17:03: POC Glucose 91 05/10/20 20:58: POC Glucose 89 05/11/20 00:10: POC Glucose 82 05/11/20 03:45: WBC 20.2 H, RBC 4.87, Hgb 15.3, Hct 43.9, MCV 90.1, MCH 31.4, MCHC 34.9, RDW Std Deviation 45.4 H, RDW Coeff of Taras 14.0, Plt Count 182, MPV 10.4, Immature Gran % (Auto) 2.100 H, Neut % (Auto) 88.2 H, Lymph % (Auto) 5.6 L , [place] % (Auto) 3.5, Eos % (Auto) 0.1, Baso % (Auto) 0.5, Absolute Neuts (auto) 17.9 H, Absolute Lymphs (auto) 1.14, Nucleated RBC % 0 05/11/20 03:45: Sodium 138, Potassium 4.3, Chloride 101, Carbon Dioxide 28.0, Anion Gap 9, BUN 38 H, Creatinine 0.80, Estim Creat Clear Calc 76.43, Est GFR (MDRD) Af Amer 122, Est GFR (MDRD) Non-Af 101, BUN/Creatinine Ratio 47.4 H, Glucose 73 L, Calcium 8.7, Total Bilirubin 1.50 H, AST 43 H, ALT 58, Alkaline Phosphatase 92, Total Protein 6.5, Albumin 1.8 L, Globulin 4.7 H, Albumin/Globulin Ratio 0.4 L Current Medications Acetaminophen (Acetaminophen 325 Mg Tablet) 650 mg PO Q6H PRN PRN PRN Reason: Pain Score 1-10/Temp > 100.7 F Last Admin: 05/09/20 23:19 Dose: 650 mg Documented by: Al Hydroxide/Mg Hydroxide (Mag Hydrox/Al Hydrox/Simeth 30 Ml Udc) 30 ml PO Q6H PRN PRN PRN Reason: Gastric Burning Albuterol Sulfate (Albuterol Ih 8.5 Gm (Proair) Inhaler (200 Puffs)) 2.5 puff INHALATION Q2H PRN PRN PRN Reason: Shortness of Breath/Wheezing Last Admin: 05/09/20 18:57 Dose: 2.5 puff Documented by: Apixaban (Apixaban 5 Mg Tablet) 10 mg PO BID [facility] Last Admin: 05/10/20 21:00 Dose: 10 mg Documented by: Atenolol (Atenolol 25 Mg Tablet) 12.5 mg PO DAILY [facility] Last Admin: 05/10/20 09:37 Dose: 12.5 mg Documented by: Atorvastatin Calcium (Atorvastatin Calcium 20 Mg Tablet) 20 mg PO QHS [facility] Last Admin: 05/10/20 21:00 Dose: 20 mg Documented by: Cholecalciferol (Cholecalciferol (Vit D3) 1,000 Unit (25mcg)) 1,000 unit PO BID [facility] Last Admin: 05/10/20 21:00 Dose: 1,000 unit Documented by: Cyanocobalamin (Cyanocobalamin 500 Mcg Tablet) 1,000 mcg PO DAILY [facility] Last Admin: 05/10/20 12:01 Dose: 1,000 mcg Documented by: Dexamethasone (Dexamethasone 4 Mg Tablet) 6 mg PO DAILY [facility] Last Admin: 05/10/20 09:38 Dose: 6 mg Documented by: Dextrose (Dextrose 50%-Water 25 Gm/50 Ml Disp.Syrin) 0 gm IV X1 PRN; Protocol PRN Reason: Hypoglycemia Last Admin: 05/11/20 03:54 Dose: 12.5 gm Documented by: Finasteride (Finasteride 5 Mg Tablet) 5 mg PO DAILY [facility] Last Admin: 05/10/20 09:37 Dose: 5 mg Documented by: Furosemide (Furosemide 40 Mg/4 Ml Vial) 40 mg IV DAILY [facility] Last Admin: 05/10/20 09:38 Dose: 40 mg Documented by: Glucagon (Glucagon 1 Mg/Ml Syringe) 1 mg IM .X1 PRN PRN Reason: Hypoglycemia Hydromorphone HCl (Hydromorphone 1 Mg/Ml Syringe) 1 mg IV Q4H PRN PRN PRN Reason: Pain Score 6-10 Sodium Chloride () 250 mls @ 15 mls/hr IV .[id number] PRN PRN Reason: Saline Flush Last Infusion: 05/10/20 14:57 Dose: Infused Documented by: Sodium Chloride () 250 mls @ 15 mls/hr IV .[id number] PRN PRN Reason: Additional IVPB Infusion Ceftriaxone Sodium 2 gm/ (Sodium Chloride) 50 mls @ 100 mls/hr IV Q24 [facility] Last Infusion: 05/10/20 12:31 Dose: Infused Documented by: Insulin Glargine (Insulin Glargine 100 Units/Ml Pen) 32 units SC 1100,2200 [facility] Insulin Human Lispro (Insulin Lispro 100 Unit/Ml Insuln.Pen) 0 unit SC Q6 [facility]; Protocol Last Admin: 05/11/20 06:10 Dose: Not Given Documented by: Lorazepam (Lorazepam 2 Mg/Ml Syringe) 0.5 mg IV Q4H PRN PRN PRN Reason: anxiety/agitation with BIPAP Last Admin: 05/10/20 22:43 Dose: 0.5 mg Documented by: Losartan Potassium (Losartan Potassium 50 Mg Tablet) 50 mg PO DAILY [facility] Last Admin: 05/10/20 09:37 Dose: 50 mg Documented by: Magnesium Hydroxide (Magnesium Hydroxide 30 Ml Udc) 30 ml PO DAILY PRN PRN PRN Reason: Constipation Melatonin (Melatonin 3 Mg Tablet) 3 mg PO QHS PRN PRN PRN Reason: INSOMNIA Last Admin: 05/10/20 21:00 Dose: 3 mg Documented by: Nitroglycerin (Nitroglycerin (Inpatient Use) 0.4 Mg Tab.Subl) 0.4 mg SUBLINGUAL Q5M PRN PRN Reason: CARDIAC/CHEST PAIN Ondansetron HCl (Ondansetron 4 Mg/2 Ml Vial) 4 mg IV Q8H PRN PRN PRN Reason: NAUSEA/VOMITING Oxycodone HCl (Oxycodone 5 Mg Tablet) 10 mg PO Q4H PRN PRN PRN Reason: Pain Score 4-5 Last Admin: 05/10/20 10:47 Dose: 10 mg Documented by: Prochlorperazine Edisylate (Prochlorperazine 10 Mg/2 Ml Vial) 5 mg IV Q4H PRN PRN PRN Reason: Breakthrough nausea/vomiting Sodium Chloride (0.9% Saline Lock 10 Ml Syringe) 10 - 40 ml IV UD PRN PRN Reason: SALINE FLUSH Last Admin: 05/10/20 22:41 Dose: 10 ml Documented by: Sodium Chloride (Sodium Chloride 0.65% 1 [place].Btl) 2 spray NASAL TID PRN PRN PRN Reason: NASAL DRYNESS Last Admin: 05/06/20 21:47 Dose: 2 spray Documented by: Tamsulosin HCl (Tamsulosin Hcl 0.4 Mg Capsule) 0.4 mg PO QHS [facility] Last Admin: 05/10/20 21:00 Dose: 0.4 mg Documented by: STROKE Vital Signs/Narrative: Vital Signs Temp Pulse Resp BP Pulse Ox 05/11/20 07:00 58 L 16 95/55 L 93 05/11/20 06:00 58 L 16 99/55 L 95 05/11/20 05:00 56 L 17 94/54 L 93 05/11/20 04:00 97.2 F L 53 L 20 H 105/46 L 94 05/11/20 03:59 53 L 05/11/20 03:20 53 L 15 92 Medical Necessity - Tobacco Use Smoking Status: Never smoker Assessment/Plan All Active Problems Hyperglycemia due to diabetes mellitus (Acute) COVID-19 (Acute) Hypoxemia (Acute) Pulmonary embolism (Acute) Sepsis (Acute) History of cholecystectomy (Resolved) Shortness of breath (Acute) 1. Acute respiratory failure secondary to COVID-19 pneumonia/bilateral PE, worsening Continue with breathing treatments, po steroids, encourage use of incentive spirometer. Wean off oxygen for SPO2 more than 94% Pulmonology following 2. Acute COVID-19 pneumonia with hypoxia, with possible concomitant HCAP Sputum cultures positive for Haemophilus influenza and Streptococcus agalactiae Continue IV ceftriaxone and Decadron Continue on Lasix IV 3. Acute bilateral PE likely secondary to #2 Continue on apixaban 4. Staph epidermidis bacteremia, likely contaminant Continue on IV ceftriaxone 5. Hypertension/hyperlipidemia/paroxysmal atrial fibrillation, appears stable, complicates care Continue on atenolol, atorvastatin, losartan 6. Type II DM, blood sugars fairly uncontrolled, Continue Lantus and premeal insulin as well as insulin sliding scale 7. DVT prophylaxis?on apixaban Inpatient E&M: [id number] [facility] L3
[2020-05-11 07:40] LABS: Bedside Glucose 70 mg/dL (70-110)
[2020-05-11 07:40] LABS: Bedside Glucose 134 mg/dL (70-110)
--- NOTE | 2020-05-11 07:45 | CPS ---
Placed pt on Airvo @60lpm and 93%, Sat of 91%.
--- NOTE | 2020-05-11 07:56 | PCM.PN.INT ---
Subjective: Patient was transferred to the intensive care unit overnight secondary to progressive hypoxia. However, upon arriving to the intensive care unit patient saturations improved. Patient did report a productive cough prior to leaving [facility] 2. Overnight, patient has been able to be weaned on FiO2 to 70% on BiPAP, but oxygenation is marginal on Airvo. General: Alert, Oriented x3, Cooperative, - - Mild to moderate conversational dyspnea HEENT: Atraumatic, PERRLA, EOMI, Normocephalic, - - No scleral icterus or injection noted Oral: No Gingival or Mucosal Lesions/ Ulcerations, Dry Mucosa Neck: Supple, No JVD, No Nodes, Trachea Midline Lungs: No rhonchi, No wheeze, No rales, Diminished Cardiovascular: Normal S1, Normal S2, No murmurs, Bradycardic, No rub noted, No Gallop Abdomen: Bowel Sounds Present, Soft, Non Tender, Non-Distended, Obese Extremities: No clubbing, No cyanosis, Capillary Refill Less than 3 Seconds Skin: No rashes, No breakdown Musculoskeletal: No Tenderness to Palpation of Joints or Extremities Lymphatic: No Cervical, Supraclavicular, or Inguinal Adenopathy Neurological: Cranial nerves II-XII grossly intact, Neuro grossly intact, Motor Exam 5/5 strength throughout Psych/Mental Status: Anxious, Restless Vital Signs Temp Pulse Resp BP Pulse Ox 36.2 C L 60 16 95/55 L 93 05/11/20 04:00 05/11/20 07:52 05/11/20 07:00 05/11/20 07:00 05/11/20 07:00 Oxygen Flow Rate (L/min) 60 Oxygen Delivery Method Bi-pap Weight: 120.5 kg Body Mass Index (BMI) 40.1 Finger Stick Blood Glucose 161 Intake and Output for Last 24 Hours 05/09/20 05/10/20 05/11/20 23:59 23:59 23:59 Intake Total 881.75 / 881.75 805 / 805 Output Total 2250 / 2250 1750 / 2050 550 / 550 Balance -1368.25 / -1368.25 -945 / -1245 -550 / -550 Labs (Last 48 Hours) 05/09/20 05/09/20 05/09/20 11:46 16:55 20:30 WBC RBC Hgb Hct MCV MCH MCHC RDW Std Deviation RDW Coeff of Taras Plt Count MPV Immature Gran % (Auto) Neut % (Auto) Lymph % (Auto) [place] % (Auto) Eos % (Auto) Baso % (Auto) Absolute Neuts (auto) Absolute Lymphs (auto) Nucleated RBC % Differential Comment Platelet Estimate Specimen Type Sample Site pH Bicarbonate Actual Total CO2 Base Excess O2 Saturation O2 % ABG pCO2 ABG pO2 Agapito Test Respiration Rate O2 Delivery Device Vent Mode Tidal Volume POC PEEP Sodium Potassium Chloride Carbon Dioxide Anion Gap BUN Creatinine Estim Creat Clear Calc Est GFR (MDRD) Af Amer Est GFR (MDRD) Non-Af BUN/Creatinine Ratio Glucose Calcium Total Bilirubin AST ALT Alkaline Phosphatase Total Protein Albumin Globulin Albumin/Globulin Ratio POC Glucose 296 H 243 H 283 H 05/10/20 05/10/20 05/10/20 08:36 08:36 09:30 WBC 7.6 RBC 4.55 L Hgb 14.1 Hct 41.1 MCV 90.3 MCH 31.0 MCHC 34.3 RDW Std Deviation 44.9 H RDW Coeff of Taras 13.7 Plt Count 80 L MPV 11.1 Immature Gran % (Auto) 2.200 H Neut % (Auto) 85.5 H Lymph % (Auto) 7.5 L [place] % (Auto) 3.7 Eos % (Auto) 0.7 Baso % (Auto) 0.4 Absolute Neuts (auto) 6.5 Absolute Lymphs (auto) 0.57 L Nucleated RBC % 0 Differential Comment COMMENT Platelet Estimate MOD DEC Specimen Type Sample Site pH Bicarbonate Actual Total CO2 Base Excess O2 Saturation O2 % ABG pCO2 ABG pO2 Agapito Test Respiration Rate O2 Delivery Device Vent Mode Tidal Volume POC PEEP Sodium 138 Potassium 4.3 Chloride 103 Carbon Dioxide 29.0 Anion Gap 6 BUN 34 H Creatinine 0.71 Estim Creat Clear Calc 61.14 Est GFR (MDRD) Af Amer 140 Est GFR (MDRD) Non-Af 116 BUN/Creatinine Ratio 47.7 H Glucose 170 H Calcium 8.8 Total Bilirubin 1.20 H AST 40 H ALT 57 Alkaline Phosphatase 89 Total Protein 6.0 L Albumin 1.8 L Globulin 4.2 Albumin/Globulin Ratio 0.4 L POC Glucose 208 H 05/10/20 05/10/20 05/10/20 12:25 13:19 17:03 WBC RBC Hgb Hct MCV MCH MCHC RDW Std Deviation RDW Coeff of Taras Plt Count MPV Immature Gran % (Auto) Neut % (Auto) Lymph % (Auto) [place] % (Auto) Eos % (Auto) Baso % (Auto) Absolute Neuts (auto) Absolute Lymphs (auto) Nucleated RBC % Differential Comment Platelet Estimate Specimen Type ART Sample Site R Brach pH 7.47 H Bicarbonate Actual 26.5 H Total CO2 28 Base Excess 3 H O2 Saturation 91 L O2 % 100 ABG pCO2 36.2 ABG pO2 57 L Agapito Test Positive Respiration Rate 12 O2 Delivery Device BiPAP Vent Mode BiLevel Tidal Volume 500 POC PEEP 12 Sodium Potassium Chloride Carbon Dioxide Anion Gap BUN Creatinine Estim Creat Clear Calc Est GFR (MDRD) Af Amer Est GFR (MDRD) Non-Af BUN/Creatinine Ratio Glucose Calcium Total Bilirubin AST ALT Alkaline Phosphatase Total Protein Albumin Globulin Albumin/Globulin Ratio POC Glucose 238 H 91 05/10/20 05/11/20 05/11/20 20:58 00:10 03:45 WBC 20.2 H RBC 4.87 Hgb 15.3 Hct 43.9 MCV 90.1 MCH 31.4 MCHC 34.9 RDW Std Deviation 45.4 H RDW Coeff of Taras 14.0 Plt Count 182 MPV 10.4 Immature Gran % (Auto) 2.100 H Neut % (Auto) 88.2 H Lymph % (Auto) 5.6 L [place] % (Auto) 3.5 Eos % (Auto) 0.1 Baso % (Auto) 0.5 Absolute Neuts (auto) 17.9 H Absolute Lymphs (auto) 1.14 Nucleated RBC % 0 Differential Comment Platelet Estimate Specimen Type Sample Site pH Bicarbonate Actual Total CO2 Base Excess O2 Saturation O2 % ABG pCO2 ABG pO2 Agapito Test Respiration Rate O2 Delivery Device Vent Mode Tidal Volume POC PEEP Sodium Potassium Chloride Carbon Dioxide Anion Gap BUN Creatinine Estim Creat Clear Calc Est GFR (MDRD) Af Amer Est GFR (MDRD) Non-Af BUN/Creatinine Ratio Glucose Calcium Total Bilirubin AST ALT Alkaline Phosphatase Total Protein Albumin Globulin Albumin/Globulin Ratio POC Glucose 89 82 05/11/20 05/11/20 05/11/20 03:45 03:51 04:09 WBC RBC Hgb Hct MCV MCH MCHC RDW Std Deviation RDW Coeff of Taras Plt Count MPV Immature Gran % (Auto) Neut % (Auto) Lymph % (Auto) [place] % (Auto) Eos % (Auto) Baso % (Auto) Absolute Neuts (auto) Absolute Lymphs (auto) Nucleated RBC % Differential Comment Platelet Estimate Specimen Type Sample Site pH Bicarbonate Actual Total CO2 Base Excess O2 Saturation O2 % ABG pCO2 ABG pO2 Agapito Test Respiration Rate O2 Delivery Device Vent Mode Tidal Volume POC PEEP Sodium 138 Potassium 4.3 Chloride 101 Carbon Dioxide 28.0 Anion Gap 9 BUN 38 H Creatinine 0.80 Estim Creat Clear Calc 76.43 Est GFR (MDRD) Af Amer 122 Est GFR (MDRD) Non-Af 101 BUN/Creatinine Ratio 47.4 H Glucose 73 L Calcium 8.7 Total Bilirubin 1.50 H AST 43 H ALT 58 Alkaline Phosphatase 92 Total Protein 6.5 Albumin 1.8 L Globulin 4.7 H Albumin/Globulin Ratio 0.4 L POC Glucose 70 134 H Clinical Impression(s) from Imaging Studies Chest X-Ray 05/10/20 13:01 IMPRESSION: Patchy bilateral pulmonary infiltrates in a peripheral distribution worse in the left hemithorax. Findings are in keeping with Covid. Electronically Signed: Casimiro Marie MD at 13:48 EST , Service support , Medical Necessity - Tobacco Use Smoking Status: Never smoker Assessment/Plan All Active Problems Hyperglycemia due to diabetes mellitus (Acute) COVID-19 (Acute) Hypoxemia (Acute) Pulmonary embolism (Acute) Sepsis (Acute) History of cholecystectomy (Resolved) Shortness of breath (Acute) RECOMMENDATIONS: 1. Continue to wean FiO2 to maintain saturations at or above 90%. 2. Continue Decadron with plans to complete a 10-day treatment course. 3. Continue systemic anticoagulation with Eliquis. 4. Encourage incentive spirometer use and mobilize patient as tolerated. 5. Continue antimicrobials per ID recommendations. 6. Continue attempts at gentle diuresis as tolerated by hemodynamics and renal function. 7. Anticipate short BiPAP breaks. Cannot exclude the need for intubation later today IMPRESSIONS: 1. Acute hypoxemic respiratory failure secondary to COVID-19 pneumonia and bilateral pulmonary emboli Patient appeared to respond well to recruitment measures with BiPAP therapy overnight with decreasing FiO2. However, patient is demanding transition to Airvo and may lose some recruitment. Patient did have some choking episodes overnight and chest x-ray looks slightly worse compared to previous. Cannot exclude the need for intubation moving forward. We will continue anticoagulation for now. Patient is on antibiotics, but defer to infectious disease on continuation/course. Will attempt to give an additional dose of Lasix this evening. Patient continues to have significantly poor insight into his overall condition. 2. Diabetes mellitus/hypertension/hyperlipidemia/BPH/obesity/paroxysmal atrial fibrillation Complicates care, management, recovery and prognosis. Recommend complete discontinuation of Pradaxa given high risk for bleeding complications. Continue home medications as indicated. Inpatient E&M: [id number] [facility] L3
[2020-05-11] MEDS: 0.9% Saline Lock 10 ML Syringe IV ×3 (09:11→18:03)
[2020-05-11] MEDS: Ondansetron 4 MG/2 ML Vial IV (09:14)
[2020-05-11] MEDS: Furosemide 40 MG/4 ML Vial IV ×2 (09:18→18:05)
[2020-05-11] MEDS: Atenolol 25 MG Tablet 12.5 MG PO (09:19)
[2020-05-11] MEDS: APIXABAN 5 MG TABLET 10 MG PO (09:19)
[2020-05-11] MEDS: dexAMETHasone 4 MG Tablet 6 MG PO (09:20)
[2020-05-11] MEDS: Finasteride 5 MG Tablet PO (09:20)
[2020-05-11] MEDS: Cyanocobalamin 500 MCG Tablet 1000 MCG PO (09:20)
--- NOTE | 2020-05-11 09:53 | PN.ID_ITS ---
Patient Problems: Active and Suspected Problems Hyperglycemia due to diabetes mellitus (Acute) COVID-19 (Acute) Hypoxemia (Acute) Pulmonary embolism (Acute) Sepsis (Acute) Shortness of breath (Acute) Intraperitoneal bleeding (Suspected) Subjective: Feeling better today. No fever, some upset stomach. - Physical Exam Vitals/I&O's: Vital Signs Temp Pulse Resp BP Pulse Ox 97.2 F L 60 28 H 95/55 L 91 05/11/20 04:00 05/11/20 07:52 05/11/20 07:45 05/11/20 07:00 05/11/20 09:30 Oxygen Flow Rate (L/min) 60 Oxygen Delivery Method Airvo Weight: 120.5 kg Body Mass Index (BMI) 40.1 Finger Stick Blood Glucose 161 Intake and Output for Last 24 Hours 05/09/20 05/10/20 05/11/20 23:59 23:59 23:59 Intake Total 881.75 / 881.75 805 / 805 50 / 50 Output Total 2250 / 2250 1750 / 2050 550 / 550 Balance -1368.25 / -1368.25 -945 / -1245 -500 / -500 General: Alert, Cooperative, No apparent distress Lungs: Diminished Cardiovascular: Regular rate, Regular Rhythm Abdomen: Soft, Non Tender, Non-Distended Skin: No rashes Microbiology Past 72 Hours 05/03/20 08:45 Blood Culture (Wb) - Left Hand Bacteria Detection (PCR) - Final Staphylococcus epidermidis 05/03/20 08:45 Blood Culture (Wb) - Left Hand Blood Culture - Final Staphylococcus epidermidis 05/03/20 08:40 Blood Culture (Wb) - Anticubital Left Blood Culture - Final No growth in 5 days. Laboratory Results 05/10/20 09:30: POC Glucose 208 H 05/10/20 12:25: POC Glucose 238 H 05/10/20 13:19: Specimen Type ART, Sample Site R Brach, pH 7.47 H, Bicarbonate Actual 26.5 H, Total CO2 28, Base Excess 3 H, O2 Saturation 91 L, O2 % 100, ABG pCO2 36.2, ABG pO2 57 L, Agapito Test Positive, Respiration Rate 12, O2 Delivery Device BiPAP, Vent Mode BiLevel, Tidal Volume 500, POC PEEP 12 05/10/20 17:03: POC Glucose 91 05/10/20 20:58: POC Glucose 89 05/11/20 00:10: POC Glucose 82 05/11/20 03:45: WBC 20.2 H, RBC 4.87, Hgb 15.3, Hct 43.9, MCV 90.1, MCH 31.4, MCHC 34.9, RDW Std Deviation 45.4 H, RDW Coeff of Taras 14.0, Plt Count 182, MPV 10.4, Immature Gran % (Auto) 2.100 H, Neut % (Auto) 88.2 H, Lymph % (Auto) 5.6 L , [place] % (Auto) 3.5, Eos % (Auto) 0.1, Baso % (Auto) 0.5, Absolute Neuts (auto) 17.9 H, Absolute Lymphs (auto) 1.14, Nucleated RBC % 0 05/11/20 03:45: Sodium 138, Potassium 4.3, Chloride 101, Carbon Dioxide 28.0, Anion Gap 9, BUN 38 H, Creatinine 0.80, Estim Creat Clear Calc 76.43, Est GFR (MDRD) Af Amer 122, Est GFR (MDRD) Non-Af 101, BUN/Creatinine Ratio 47.4 H, Glucose 73 L, Calcium 8.7, Total Bilirubin 1.50 H, AST 43 H, ALT 58, Alkaline Phosphatase 92, Total Protein 6.5, Albumin 1.8 L, Globulin 4.7 H, Albumin/Globulin Ratio 0.4 L 05/11/20 03:51: POC Glucose 70 05/11/20 04:09: POC Glucose 134 H Current Medications Acetaminophen (Acetaminophen 325 Mg Tablet) 650 mg PO Q6H PRN PRN PRN Reason: Pain Score 1-10/Temp > 100.7 F Last Admin: 05/09/20 23:19 Dose: 650 mg Documented by: Al Hydroxide/Mg Hydroxide (Mag Hydrox/Al Hydrox/Simeth 30 Ml Udc) 30 ml PO Q6H PRN PRN PRN Reason: Gastric Burning Albuterol Sulfate (Albuterol Ih 8.5 Gm (Proair) Inhaler (200 Puffs)) 2.5 puff INHALATION Q2H PRN PRN PRN Reason: Shortness of Breath/Wheezing Last Admin: 05/09/20 18:57 Dose: 2.5 puff Documented by: Apixaban (Apixaban 5 Mg Tablet) 10 mg PO BID [facility] Last Admin: 05/11/20 09:19 Dose: 10 mg Documented by: Atenolol (Atenolol 25 Mg Tablet) 12.5 mg PO DAILY [facility] Last Admin: 05/11/20 09:19 Dose: 12.5 mg Documented by: Atorvastatin Calcium (Atorvastatin Calcium 20 Mg Tablet) 20 mg PO QHS [facility] Last Admin: 05/10/20 21:00 Dose: 20 mg Documented by: Cholecalciferol (Cholecalciferol (Vit D3) 1,000 Unit (25mcg)) 1,000 unit PO BID [facility] Last Admin: 05/11/20 09:19 Dose: 1,000 unit Documented by: Cyanocobalamin (Cyanocobalamin 500 Mcg Tablet) 1,000 mcg PO DAILY [facility] Last Admin: 05/11/20 09:20 Dose: 1,000 mcg Documented by: Dexamethasone (Dexamethasone 4 Mg Tablet) 6 mg PO DAILY [facility] Last Admin: 05/11/20 09:20 Dose: 6 mg Documented by: Dextrose (Dextrose 50%-Water 25 Gm/50 Ml Disp.Syrin) 0 gm IV X1 PRN; Protocol PRN Reason: Hypoglycemia Last Admin: 05/11/20 03:54 Dose: 12.5 gm Documented by: Finasteride (Finasteride 5 Mg Tablet) 5 mg PO DAILY [facility] Last Admin: 05/11/20 09:20 Dose: 5 mg Documented by: Furosemide (Furosemide 40 Mg/4 Ml Vial) 40 mg IV DAILY [facility] Last Admin: 05/11/20 09:18 Dose: 40 mg Documented by: Furosemide (Furosemide 40 Mg/4 Ml Vial) 40 mg IV X1 ONE Stop: 05/11/20 18:01 Glucagon (Glucagon 1 Mg/Ml Syringe) 1 mg IM .X1 PRN PRN Reason: Hypoglycemia Hydromorphone HCl (Hydromorphone 1 Mg/Ml Syringe) 1 mg IV Q4H PRN PRN PRN Reason: Pain Score 6-10 Sodium Chloride () 250 mls @ 15 mls/hr IV .[id number] PRN PRN Reason: Saline Flush Last Admin: 05/11/20 09:10 Dose: 15 mls/hr Documented by: Sodium Chloride () 250 mls @ 15 mls/hr IV .[id number] PRN PRN Reason: Additional IVPB Infusion Ceftriaxone Sodium 2 gm/ (Sodium Chloride) 50 mls @ 100 mls/hr IV Q24 [facility] Last Infusion: 05/11/20 09:45 Dose: Infused Documented by: Insulin Glargine (Insulin Glargine 100 Units/Ml Pen) 32 units SC 1100,2200 [facility] Insulin Human Lispro (Insulin Lispro 100 Unit/Ml Insuln.Pen) 0 unit SC Q6 [facility]; Protocol Last Admin: 05/11/20 06:10 Dose: Not Given Documented by: Lorazepam (Lorazepam 2 Mg/Ml Syringe) 0.5 mg IV Q4H PRN PRN PRN Reason: anxiety/agitation with BIPAP Last Admin: 05/10/20 22:43 Dose: 0.5 mg Documented by: Magnesium Hydroxide (Magnesium Hydroxide 30 Ml Udc) 30 ml PO DAILY PRN PRN PRN Reason: Constipation Melatonin (Melatonin 3 Mg Tablet) 3 mg PO QHS PRN PRN PRN Reason: INSOMNIA Last Admin: 05/10/20 21:00 Dose: 3 mg Documented by: Nitroglycerin (Nitroglycerin (Inpatient Use) 0.4 Mg Tab.Subl) 0.4 mg SUBLINGUAL Q5M PRN PRN Reason: CARDIAC/CHEST PAIN Ondansetron HCl (Ondansetron 4 Mg/2 Ml Vial) 4 mg IV Q8H PRN PRN PRN Reason: NAUSEA/VOMITING Last Admin: 05/11/20 09:14 Dose: 4 mg Documented by: Oxycodone HCl (Oxycodone 5 Mg Tablet) 10 mg PO Q4H PRN PRN PRN Reason: Pain Score 4-5 Last Admin: 05/10/20 10:47 Dose: 10 mg Documented by: Prochlorperazine Edisylate (Prochlorperazine 10 Mg/2 Ml Vial) 5 mg IV Q4H PRN PRN PRN Reason: Breakthrough nausea/vomiting Sodium Chloride (0.9% Saline Lock 10 Ml Syringe) 10 - 40 ml IV UD PRN PRN Reason: SALINE FLUSH Last Admin: 05/11/20 09:11 Dose: 20 ml Documented by: Sodium Chloride (Sodium Chloride 0.65% 1 [place].Btl) 2 spray NASAL TID PRN PRN PRN Reason: NASAL DRYNESS Last Admin: 05/06/20 21:47 Dose: 2 spray Documented by: Tamsulosin HCl (Tamsulosin Hcl 0.4 Mg Capsule) 0.4 mg PO QHS [facility] Last Admin: 05/10/20 21:00 Dose: 0.4 mg Documented by: Medical Necessity - Tobacco Use Smoking Status: Never smoker Route of nutrition/ use of supplements: [] Nutritional Intake: [] IV Site: [] Rao Catheter: [] - Assessment/Plan Antibiotics: [] Assessment/Plan: [] Active and Suspected Problems Hyperglycemia due to diabetes mellitus (Acute) COVID-19 (Acute) Hypoxemia (Acute) Pulmonary embolism (Acute) Sepsis (Acute) Shortness of breath (Acute) Intraperitoneal bleeding (Suspected) covid with hypoxia and PEs - sx started 04/23, (+) covid as an outpt. On dex, anticoagulation, and completed remdesivir. 1 of 2 bcx with CoNS, consistent with contaminant. Sputum with haemophilus and strep, will stop ceftriaxone, day 7. O2 better today. Will follow
[2020-05-11 11:21] LABS: Bedside Glucose 91 mg/dL (70-110)
[2020-05-11] MEDS: oxyCODONE 5 MG Tablet 10 MG PO ×2 (12:21→21:42)
[2020-05-11] MEDS: Insulin Lispro 100 UNIT/ML INSULN.PEN SC (18:03)
[2020-05-11 18:15] LABS: Bedside Glucose 198 mg/dL (70-110)
[2020-05-11] MEDS: APIXABAN 5 MG TABLET PO (19:36)
[2020-05-11] MEDS: Tamsulosin HCl 0.4 MG Capsule PO (19:36)
[2020-05-11] MEDS: Atorvastatin Calcium 20 MG Tablet PO (19:36)
--- NOTE | 2020-05-11 20:37 | CPS ---
Pt.'s FiO2 decreased to 90%
[2020-05-11] MEDS: MELATONIN 3 MG TABLET PO (21:42)
[2020-05-11 21:55] LABS: Bedside Glucose 177 mg/dL (70-110)
[2020-05-12] VITALS (44 sets, daily range): BP systolic 71–165; BP diastolic 44–95; PULSE 54–73; RESP 12–22; TEMP 36.3–37.1; O2SAT 88–96; BMI 42.2
[2020-05-12 04:35] LABS: Absolute Lymphocyte Count 0.54 X10^3/uL (0.83-4.51); Absolute Neutrophil Count 11.6 X10^3/uL (2.0-7.7); Basophil# 0.02 X10^3/uL; Basophil% 0.2 % (0-1); Eosinophil# 0.04 X10^3/uL; Eosinophils% 0.3 % (0-5); Hematocrit 43.4 % (40-54); Hemoglobin 14.4 g/dL (13.0-16.5); Lymphocyte # 0.54 X10^3/ul (4.0); Lymphocyte % 4.2 % (19-41); Mean Corp Hgb Conc 33.2 g/dL (32-36); Mean Corpuscular Hgb 30.1 pg (27.0-32.0); Mean Corpuscular Volume 90.8 fL (80-94); Mean Platelet Vol. 11.3 fl (6.2-12.0); Monocyte# 0.59 X10^3/uL; Monocyte% 4.6 % (0-10); NRBC Flagged by Analyzer 0 % (0-5); Neutrophil # 11.55 X10^3/uL (2.7-7.7); Neutrophil % 89.7 % (47-70); POSITIVE DIFFERENTIAL YES; Platelet Count 123 K/mm3 (150-450); RBC Distribution Width CV 13.7 % (11.6-14.6); RBC Distribution Width SD 46.1 fl (35.1-43.9); Red Blood Count 4.78 M/mm3 (4.6-6.2); White Blood Count 12.9 K/mm3 (4.4-11.0)
[2020-05-12 04:50] LABS: Differential Indicated SCAN CRITERIA MET
[2020-05-12 05:12] LABS: Differential Comment SCANNED
[2020-05-12 05:52] LABS: Anion Gap 6 (5-15); BUN 46 mg/dL (7-18); BUN/Creat Ratio 48.7 RATIO (10-20); Calcium,Total 8.3 mg/dL (8.5-10.1); Chloride 101 mmol/L (98-107); Creatinine, Serum 0.94 mg/dL (0.70-1.30); EST Glomerular Filtration Rate 84 mL/min (>60); Est Glom Filt Rate - Afr Amer 101 mL/min (>60); Estimated Creatinine Clearance 65.04 ml/min; Glucose 216 mg/dL (74-106); Magnesium 2.4 mg/dL (1.6-2.6); Phosphorus 4.9 mg/dL (2.5-4.9); Potassium 4.7 mmol/L (3.5-5.1); Sodium Level 136 mmol/L (136-145)
--- NOTE | 2020-05-12 07:24 | PCM.PN.HOSP ---
Patient Problems: Active and Suspected Problems Hyperglycemia due to diabetes mellitus (Acute) COVID-19 (Acute) Hypoxemia (Acute) Pulmonary embolism (Acute) Sepsis (Acute) Shortness of breath (Acute) Intraperitoneal bleeding (Suspected) Reason for Visit: Follow-up on respiratory failure/COVID-19 pneumonia/bilateral multiple PE Subjective: Patient was seen and examined. Overnight, patient remained on very high levels of oxygen he was intubated this morning after a lengthy family discussion with voip engineer. Objective: Physical exam: General: Alert, cooperative, no apparent distress HEENT: Atraumatic, PERRLA, Normocephalic Oral: No Gingival or Mucosal Lesions/ Ulcerations Neck: Supple, No Nodes, Trachea Midline Lungs:Diminished, appears slightly dyspneic Cardiovascular: Regular rate, Regular Rhythm, Normal S1, Normal S2, No murmurs Abdomen: Bowel Sounds Present, Soft, Non Tender, Obese Extremities: No edema Skin: No breakdown Musculoskeletal: No Tenderness to Palpation of Joints or Extremities, No Muscle Wasting Lymphatic: No cervical, supraclavicular, or inguinal adenopathy Neurological: Cranial nerves II-XII grossly intact, Neuro grossly intact Psych/Mental Status: Normal Affect, Appropriate Vitals/I&O's: Vital Signs Temp Pulse Resp BP Pulse Ox 97.4 F L 66 18 109/67 93 05/12/20 04:00 05/12/20 07:00 05/12/20 07:00 05/12/20 07:00 05/12/20 07:00 Oxygen Flow Rate (L/min) 60 Oxygen Delivery Method Bi-pap Weight: 120.5 kg Body Mass Index (BMI) 40.1 Finger Stick Blood Glucose 161 Intake and Output for Last 24 Hours 05/10/20 05/11/20 05/12/20 23:59 23:59 23:59 Intake Total 805 / 805 621.25 / 621.25 120 / 120 Output Total 1750 / 2050 1675 / 1825 150 / 150 Balance -945 / -1245 -1053.75 / -1203.75 -30 / -30 Laboratory Results 05/11/20 03:51: POC Glucose 70 05/11/20 04:09: POC Glucose 134 H 05/11/20 10:56: POC Glucose 91 05/11/20 17:58: POC Glucose 198 H 05/11/20 21:41: POC Glucose 177 H 05/12/20 04:25: WBC 12.9 H, RBC 4.78, Hgb 14.4, Hct 43.4, MCV 90.8, MCH 30.1, MCHC 33.2, RDW Std Deviation 46.1 H, RDW Coeff of Taras 13.7, Plt Count 123 L, MPV 11.3, Immature Gran % (Auto) 1.000 H, Neut % (Auto) 89.7 H, Lymph % (Auto) 4.2 L, [place] % (Auto) 4.6, Eos % (Auto) 0.3, Baso % (Auto) 0.2, Absolute Neuts (auto) 11.6 H, Absolute Lymphs (auto) 0.54 L, Nucleated RBC % 0, Differential Comment SCANNED 05/12/20 04:25: Sodium 136, Potassium 4.7, Chloride 101, Carbon Dioxide 29.0, Anion Gap 6, BUN 46 H, Creatinine 0.94, Estim Creat Clear Calc 65.04, Est GFR (MDRD) Af Amer 101, Est GFR (MDRD) Non-Af 84, BUN/Creatinine Ratio 48.7 H, Glucose 216 H, Calcium 8.3 L, Phosphorus 4.9, Magnesium 2.4 Current Medications Acetaminophen (Acetaminophen 325 Mg Tablet) 650 mg PO Q6H PRN PRN PRN Reason: Pain Score 1-10/Temp > 100.7 F Last Admin: 05/09/20 23:19 Dose: 650 mg Documented by: Al Hydroxide/Mg Hydroxide (Mag Hydrox/Al Hydrox/Simeth 30 Ml Udc) 30 ml PO Q6H PRN PRN PRN Reason: Gastric Burning Albuterol Sulfate (Albuterol Ih 8.5 Gm (Proair) Inhaler (200 Puffs)) 2.5 puff INHALATION Q2H PRN PRN PRN Reason: Shortness of Breath/Wheezing Last Admin: 05/09/20 18:57 Dose: 2.5 puff Documented by: Apixaban (Apixaban 5 Mg Tablet) 5 mg PO BID [facility] Last Admin: 05/11/20 19:36 Dose: 5 mg Documented by: Atenolol (Atenolol 25 Mg Tablet) 12.5 mg PO DAILY [facility] Last Admin: 05/11/20 09:19 Dose: 12.5 mg Documented by: Atorvastatin Calcium (Atorvastatin Calcium 20 Mg Tablet) 20 mg PO QHS [facility] Last Admin: 05/11/20 19:36 Dose: 20 mg Documented by: Cholecalciferol (Cholecalciferol (Vit D3) 1,000 Unit (25mcg)) 1,000 unit PO BID [facility] Last Admin: 05/11/20 19:36 Dose: 1,000 unit Documented by: Cyanocobalamin (Cyanocobalamin 500 Mcg Tablet) 1,000 mcg PO DAILY [facility] Last Admin: 05/11/20 09:20 Dose: 1,000 mcg Documented by: Dexamethasone (Dexamethasone 4 Mg Tablet) 6 mg PO DAILY [facility] Stop: 05/12/20 12:31 Last Admin: 05/11/20 09:20 Dose: 6 mg Documented by: Dextrose (Dextrose 50%-Water 25 Gm/50 Ml Disp.Syrin) 0 gm IV X1 PRN; Protocol PRN Reason: Hypoglycemia Last Admin: 05/11/20 03:54 Dose: 12.5 gm Documented by: Finasteride (Finasteride 5 Mg Tablet) 5 mg PO DAILY [facility] Last Admin: 05/11/20 09:20 Dose: 5 mg Documented by: Furosemide (Furosemide 40 Mg/4 Ml Vial) 40 mg IV DAILY [facility] Last Admin: 05/11/20 09:18 Dose: 40 mg Documented by: Glucagon (Glucagon 1 Mg/Ml Syringe) 1 mg IM .X1 PRN PRN Reason: Hypoglycemia Hydromorphone HCl (Hydromorphone 1 Mg/Ml Syringe) 1 mg IV Q4H PRN PRN PRN Reason: Pain Score 6-10 Sodium Chloride () 250 mls @ 15 mls/hr IV .[id number] PRN PRN Reason: Saline Flush Last Infusion: 05/11/20 11:15 Dose: 0 mls/hr Documented by: Sodium Chloride () 250 mls @ 15 mls/hr IV .[id number] PRN PRN Reason: Additional IVPB Infusion Insulin Glargine (Insulin Glargine 100 Units/Ml Pen) 15 units SC 1100,2200 [facility] Insulin Human Lispro (Insulin Lispro 100 Unit/Ml Insuln.Pen) 0 unit SC Q6 [facility]; Protocol Last Admin: 05/12/20 06:16 Dose: Not Given Documented by: Lorazepam (Lorazepam 2 Mg/Ml Syringe) 0.5 mg IV Q4H PRN PRN PRN Reason: anxiety/agitation with BIPAP Last Admin: 05/10/20 22:43 Dose: 0.5 mg Documented by: Magnesium Hydroxide (Magnesium Hydroxide 30 Ml Udc) 30 ml PO DAILY PRN PRN PRN Reason: Constipation Melatonin (Melatonin 3 Mg Tablet) 3 mg PO QHS PRN PRN PRN Reason: INSOMNIA Last Admin: 05/11/20 21:42 Dose: 3 mg Documented by: Nitroglycerin (Nitroglycerin (Inpatient Use) 0.4 Mg Tab.Subl) 0.4 mg SUBLINGUAL Q5M PRN PRN Reason: CARDIAC/CHEST PAIN Ondansetron HCl (Ondansetron 4 Mg/2 Ml Vial) 4 mg IV Q8H PRN PRN PRN Reason: NAUSEA/VOMITING Last Admin: 05/11/20 09:14 Dose: 4 mg Documented by: Oxycodone HCl (Oxycodone 5 Mg Tablet) 10 mg PO Q4H PRN PRN PRN Reason: Pain Score 4-5 Last Admin: 05/11/20 21:42 Dose: 10 mg Documented by: Prochlorperazine Edisylate (Prochlorperazine 10 Mg/2 Ml Vial) 5 mg IV Q4H PRN PRN PRN Reason: Breakthrough nausea/vomiting Sodium Chloride (0.9% Saline Lock 10 Ml Syringe) 10 - 40 ml IV UD PRN PRN Reason: SALINE FLUSH Last Admin: 05/11/20 18:03 Dose: 20 ml Documented by: Sodium Chloride (Sodium Chloride 0.65% 1 [place].Btl) 2 spray NASAL TID PRN PRN PRN Reason: NASAL DRYNESS Last Admin: 05/06/20 21:47 Dose: 2 spray Documented by: Tamsulosin HCl (Tamsulosin Hcl 0.4 Mg Capsule) 0.4 mg PO QHS [facility] Last Admin: 05/11/20 19:36 Dose: 0.4 mg Documented by: STROKE Vital Signs/Narrative: Vital Signs Temp Pulse Resp BP Pulse Ox 05/12/20 07:00 66 18 109/67 93 05/12/20 06:00 56 L 14 133/61 H 91 05/12/20 05:00 59 L 17 126/59 H 92 05/12/20 04:52 65 16 91 05/12/20 04:00 97.4 F L 59 L 16 142/58 H 93 05/12/20 03:25 67 Medical Necessity - Tobacco Use Smoking Status: Never smoker Assessment/Plan All Active Problems Hyperglycemia due to diabetes mellitus (Acute) COVID-19 (Acute) Hypoxemia (Acute) Pulmonary embolism (Acute) Sepsis (Acute) History of cholecystectomy (Resolved) Shortness of breath (Acute) 1. Acute respiratory failure secondary to COVID-19 pneumonia/bilateral PE, worsened Status post intubation this morning, 05/12/20 Continue with breathing treatments Wean off oxygen for SPO2 more than 94% Pulmonology following 2. Acute COVID-19 pneumonia with hypoxia, with possible concomitant HCAP Sputum cultures positive for Haemophilus influenza and Streptococcus agalactiae Completed IV ceftriaxone and Decadron Continue on Lasix IV 3. Acute bilateral PE likely secondary to #2 Continue on apixaban 4. Staph epidermidis bacteremia, likely contaminant Completed IV ceftriaxone 5. Hypertension/hyperlipidemia/paroxysmal atrial fibrillation, appears stable, complicates care Continue on atenolol, atorvastatin, losartan 6. Type II DM, blood sugars fairly uncontrolled, Continue Lantus and premeal insulin as well as insulin sliding scale 7. DVT prophylaxis?on apixaban Inpatient E&M: 16002 [facility] Hosp L3
[2020-05-12] MEDS: Midazolam 2 MG/2 ML Syringe IV (09:05)
[2020-05-12] MEDS: Etomidate 20 MG/10 ML Vial IV (09:08)
[2020-05-12] MEDS: Propofol 10MG/Ml 1,000 MG/100 ML Bottle 7.2 MG CONT INF (09:10)
--- NOTE | 2020-05-12 09:30 | NURSING ---
Patient is discussing his code status with his on the phone. both the patient and his discussed options with Dr López before patient decided he wanted to continue as a full code. Respiratory therapy was notified and patient was prepared for intubation. Patient intubated with #8 ETT, 23 cm @ the lip. Intubation slightly complicated when patient began biting on the ETT, Propofol and fentanyl gtts were initiated and succinochline was given. after medication took effect the patient was intubated without further difficulty. Dr López placed the OG tube using the glidescope. X-ray confirmed good positioning for both tubes per Dr López.
--- NOTE | 2020-05-12 09:35 | RAD_ITS ---
STUDY: X-RAY CHEST REASON FOR EXAM: Male, 69 years old. ETT placement TECHNIQUE: Single AP portable view of the chest. COMPARISON: Comparison is made with prior study dated 05/10/2020. FINDINGS: An endotracheal tube has been placed. The tip of the endotracheal tube is at 4.5 cm proximal to the adonis. An orogastric tube is seen with tip below the left hemidiaphragm. EKG electrodes are seen. Stable bilateral pulmonary infiltrates in a peripheral distribution. There is no demonstrated pleural abnormality. Normal size heart. Normal mediastinum and cyn. Normal visualized pulmonary arteries. Normal visualized aortic arch and descending thoracic aorta. There are diffuse degenerative changes of the visualized thoracic spine. Normal visualized ribs, clavicles, and shoulders. There is no demonstrated abnormality of the visualized soft tissue structures of the upper abdomen. RAD/Chest 1 View (Portable) IMPRESSION: The tip of the endotracheal tube is at 4.5 cm proximal to the adonis. Stable bilateral patchy pulmonary infiltrates in a peripheral distribution. Electronically Signed: Casimiro Marie MD at 10:45 EST , Service support ,
[2020-05-12] MEDS: LORazepam 2 MG/ML Syringe IV (10:00)
--- NOTE | 2020-05-12 10:19 | PCM.PN.INT ---
Subjective: Extensive conversations this morning with patient and his about respiratory status. Patient was requesting to go home with hospice, but when he found that he was too sick to go home with hospice had elected to be intubated. Patient was intubated at approximately 9 AM in a semiurgent fashion. Patient overall felt subjectively unchanged compared to previous. Objective: Intubation was attempted using the glide scope. Patient did receive 2 of Versed, 20 of etomidate and initiation of propofol upon initial evaluation. Placement was difficult secondary to patient biting on the endotracheal tube, so did have a protracted attempts. Patient desaturated to 80% before he was given 150 of succinylcholine. Patient was then intubated and was noted to have positive color change with tube condensation and direct visualization through the cords. OG was placed using direct visualization. Chest x-ray was examined showing adequate placement of supportive devices with bilateral infiltrates. General: - - Intubated and sedated. Fair vent synchrony. Morbidly obese. HEENT: Atraumatic, PERRLA, EOMI, Normocephalic, - - Slight scleral injection without icterus Oral: No Gingival or Mucosal Lesions/ Ulcerations, Dry Mucosa Neck: Supple, No JVD, No Nodes, Trachea Midline Lungs: No wheeze, No rales, Diminished, Rhonchi - Right greater than left Cardiovascular: Normal S1, Normal S2, No murmurs, Bradycardic, No rub noted, No Gallop Abdomen: Bowel Sounds Present, Soft, Non Tender, Non-Distended, Obese Extremities: No clubbing, No cyanosis, Edema - 1+ lower extremity Skin: - - No change compared to previous Musculoskeletal: No Tenderness to Palpation of Joints or Extremities Lymphatic: No Cervical, Supraclavicular, or Inguinal Adenopathy Neurological: Cranial nerves II-XII grossly intact, Neuro grossly intact, Motor Exam 5/5 strength throughout Psych/Mental Status: Flat Affect Vital Signs Temp Pulse Resp BP Pulse Ox 36.3 C L 58 L 18 109/67 93 05/12/20 04:00 05/12/20 07:23 05/12/20 07:00 05/12/20 07:00 05/12/20 07:00 Oxygen Flow Rate (L/min) 60 Oxygen Delivery Method Bi-pap Weight: 120.5 kg Body Mass Index (BMI) 40.1 Finger Stick Blood Glucose 161 Intake and Output for Last 24 Hours 05/10/20 05/11/20 05/12/20 23:59 23:59 23:59 Intake Total 805 / 805 621.25 / 621.25 120 / 120 Output Total 1750 / 2050 1675 / 1825 150 / 150 Balance -945 / -1245 -1053.75 / -1203.75 -30 / -30 Labs (Last 48 Hours) 05/10/20 05/10/20 05/10/20 12:25 13:19 17:03 WBC RBC Hgb Hct MCV MCH MCHC RDW Std Deviation RDW Coeff of Taras Plt Count MPV Immature Gran % (Auto) Neut % (Auto) Lymph % (Auto) [place] % (Auto) Eos % (Auto) Baso % (Auto) Absolute Neuts (auto) Absolute Lymphs (auto) Nucleated RBC % Differential Comment Specimen Type ART Sample Site R Brach pH 7.47 H Bicarbonate Actual 26.5 H Total CO2 28 Base Excess 3 H O2 Saturation 91 L O2 % 100 ABG pCO2 36.2 ABG pO2 57 L [place] Test Positive Respiration Rate 12 O2 Delivery Device BiPAP Vent Mode BiLevel Tidal Volume 500 POC PEEP 12 Sodium Potassium Chloride Carbon Dioxide Anion Gap BUN Creatinine Estim Creat Clear Calc Est GFR (MDRD) Af Amer Est GFR (MDRD) Non-Af BUN/Creatinine Ratio Glucose Calcium Phosphorus Magnesium Total Bilirubin AST ALT Alkaline Phosphatase Total Protein Albumin Globulin Albumin/Globulin Ratio POC Glucose 238 H 91 05/10/20 05/11/20 05/11/20 20:58 00:10 03:45 WBC 20.2 H RBC 4.87 Hgb 15.3 Hct 43.9 MCV 90.1 MCH 31.4 MCHC 34.9 RDW Std Deviation 45.4 H RDW Coeff of Taras 14.0 Plt Count 182 MPV 10.4 Immature Gran % (Auto) 2.100 H Neut % (Auto) 88.2 H Lymph % (Auto) 5.6 L [place] % (Auto) 3.5 Eos % (Auto) 0.1 Baso % (Auto) 0.5 Absolute Neuts (auto) 17.9 H Absolute Lymphs (auto) 1.14 Nucleated RBC % 0 Differential Comment Specimen Type Sample Site pH Bicarbonate Actual Total CO2 Base Excess O2 Saturation O2 % ABG pCO2 ABG pO2 Ag[place]ito Test Respiration Rate O2 Delivery Device Vent Mode Tidal Volume POC PEEP Sodium Potassium Chloride Carbon Dioxide Anion Gap BUN Creatinine Estim Creat Clear Calc Est GFR (MDRD) Af Amer Est GFR (MDRD) Non-Af BUN/Creatinine Ratio Glucose Calcium Phosphorus Magnesium Total Bilirubin AST ALT Alkaline Phosphatase Total Protein Albumin Globulin Albumin/Globulin Ratio POC Glucose 89 82 05/11/20 05/11/20 05/11/20 03:45 03:51 04:09 WBC RBC Hgb Hct MCV MCH MCHC RDW Std Deviation RDW Coeff of Taras Plt Count MPV Immature Gran % (Auto) Neut % (Auto) Lymph % (Auto) [place] % (Auto) Eos % (Auto) Baso % (Auto) Absolute Neuts (auto) Absolute Lymphs (auto) Nucleated RBC % Differential Comment Specimen Type Sample Site pH Bicarbonate Actual Total CO2 Base Excess O2 Saturation O2 % ABG pCO2 ABG pO2 Agapito Test Respiration Rate O2 Delivery Device Vent Mode Tidal Volume POC PEEP Sodium 138 Potassium 4.3 Chloride 101 Carbon Dioxide 28.0 Anion Gap 9 BUN 38 H Creatinine 0.80 Estim Creat Clear Calc 76.43 Est GFR (MDRD) Af Amer 122 Est GFR (MDRD) Non-Af 101 BUN/Creatinine Ratio 47.4 H Glucose 73 L Calcium 8.7 Phosphorus Magnesium Total Bilirubin 1.50 H AST 43 H ALT 58 Alkaline Phosphatase 92 Total Protein 6.5 Albumin 1.8 L Globulin 4.7 H Albumin/Globulin Ratio 0.4 L POC Glucose 70 134 H 05/11/20 05/11/20 05/11/20 10:56 17:58 21:41 WBC RBC Hgb Hct MCV MCH MCHC RDW Std Deviation RDW Coeff of Taras Plt Count MPV Immature Gran % (Auto) Neut % (Auto) Lymph % (Auto) [place] % (Auto) Eos % (Auto) Baso % (Auto) Absolute Neuts (auto) Absolute Lymphs (auto) Nucleated RBC % Differential Comment Specimen Type Sample Site pH Bicarbonate Actual Total CO2 Base Excess O2 Saturation O2 % ABG pCO2 ABG pO2 [place]ito Test Respiration Rate O2 Delivery Device Vent Mode Tidal Volume POC PEEP Sodium Potassium Chloride Carbon Dioxide Anion Gap BUN Creatinine Estim Creat Clear Calc Est GFR (MDRD) Af Amer Est GFR (MDRD) Non-Af BUN/Creatinine Ratio Glucose Calcium Phosphorus Magnesium Total Bilirubin AST ALT Alkaline Phosphatase Total Protein Albumin Globulin Albumin/Globulin Ratio POC Glucose 91 198 H 177 H 05/12/20 05/12/20 04:25 04:25 WBC 12.9 H RBC 4.78 Hgb 14.4 Hct 43.4 MCV 90.8 MCH 30.1 MCHC 33.2 RDW Std Deviation 46.1 H RDW Coeff of Taras 13.7 Plt Count 123 L MPV 11.3 Immature Gran % (Auto) 1.000 H Neut % (Auto) 89.7 H Lymph % (Auto) 4.2 L [place] % (Auto) 4.6 Eos % (Auto) 0.3 Baso % (Auto) 0.2 Absolute Neuts (auto) 11.6 H Absolute Lymphs (auto) 0.54 L Nucleated RBC % 0 Differential Comment SCANNED Specimen Type Sample Site pH Bicarbonate Actual Total CO2 Base Excess O2 Saturation O2 % ABG pCO2 ABG pO2 Agapito Test Respiration Rate O2 Delivery Device Vent Mode Tidal Volume POC PEEP Sodium 136 Potassium 4.7 Chloride 101 Carbon Dioxide 29.0 Anion Gap 6 BUN 46 H Creatinine 0.94 Estim Creat Clear Calc 65.04 Est GFR (MDRD) Af Amer 101 Est GFR (MDRD) Non-Af 84 BUN/Creatinine Ratio 48.7 H Glucose 216 H Calcium 8.3 L Phosphorus 4.9 Magnesium 2.4 Total Bilirubin AST ALT Alkaline Phosphatase Total Protein Albumin Globulin Albumin/Globulin Ratio POC Glucose Clinical Impression(s) from Imaging Studies Chest X-Ray 05/03/20 08:55 IMPRESSION: Minimal increased markings at the left lung base with blunting of left costophrenic angle. There has been no change since prior study. Electronically Signed: Casimiro Marie MD at 9:09 EST , Service support , Chest CTA 05/03/20 09:36 IMPRESSION: Multiple bilateral pulmonary emboli involving branches of the lower lobe pulmonary arteries. Multiple bilateral pulmonary infiltrates as described. Splenomegaly. Electronically Signed: Casimiro Marie MD at 10:41 EST , Service support , Chest X-Ray 05/10/20 13:01 IMPRESSION: Patchy bilateral pulmonary infiltrates in a peripheral distribution worse in the left hemithorax. Findings are in keeping with Covid. Electronically Signed: Casimiro Marie MD at 13:48 EST , Service support , Medical Necessity - Tobacco Use Smoking Status: Never smoker Assessment/Plan All Active Problems Hyperglycemia due to diabetes mellitus (Acute) COVID-19 (Acute) Hypoxemia (Acute) Pulmonary embolism (Acute) Sepsis (Acute) History of cholecystectomy (Resolved) Shortness of breath (Acute) RECOMMENDATIONS: 1. Increase PEEP as necessary. Continue to wean FiO2 to maintain saturations at or above 90%. 2. Continue Decadron with plans to complete a 10-day treatment course. Place PICC 3. Continue systemic anticoagulation with Eliquis. 4. Propofol and fentanyl for vent synchrony. Obtain sputum culture after intubation 5. Initiate tube feeds 6. Continue attempts at gentle diuresis as tolerated by hemodynamics and renal function. 7. Discontinue p.o. pain medications IMPRESSIONS: 1. Acute hypoxemic respiratory failure secondary to COVID-19 pneumonia and bilateral pulmonary emboli Patient with consistent decompensation over hospital course. Patient was on BiPAP for essentially 3 days prior to requiring intubation on 05/12/2020. Will increase PEEP as necessary to provide oxygenation. Medications for synchrony will be added. Patient will also be placed on tube feeds to help with nutritional status along with a bowel regimen given narcotics. PICC line will be placed for access as renal function is within normal limits. has been updated as to patient's condition. 2. Diabetes mellitus/hypertension/hyperlipidemia/BPH/obesity/paroxysmal atrial fibrillation Complicates care, management, recovery and prognosis. Recommend complete discontinuation of Pradaxa given high risk for bleeding complications. Continue home medications as indicated. TIME: 78 minutes of critical care time spent addressing patient's acute hypoxic respiratory failure, COVID-19 pneumonia, pulmonary emboli, review of all data and collaboration with care team (7 AM to 9:30 AM) Procedures: [id number] Critial Care Addl 30 Min 9xxxx: [id number] Critical care first hour
[2020-05-12] MEDS: Propofol 10MG/Ml 1,000 MG/100 ML Bottle 36.2 MG CONT INF (10:44)
--- NOTE | 2020-05-12 11:24 | PCM.NTREPORT ---
Nutrition Therapy Report - History Nutrition Services has been consulted to:: Manage nutrient details of diet order, Manage enteral nutrition Current diet / nutrition support order:: clear liquid diet - Anthropometric Measurements Height:: 5 ft 6.5 in Weight:: 120.5 kg Body Mass Index (BMI):: 42.2 - Relevant Labs Relevant Labs:: WBC 12.9 K/mm3 (4.4-11.0) H 05/12/20 04:25 RBC 4.55 M/mm3 (4.6-6.2) L 05/10/20 08:36 Hgb 12.8 g/dL (13.0-16.5) L 05/04/20 01:06 Hct 38.2 % (40-54) L 05/06/20 05:18 RDW Std Deviation 46.1 fl (35.1-43.9) H 05/12/20 04:25 Plt Count 123 K/mm3 (150-450) L 05/12/20 04:25 Immature Gran % (Auto) 1.000 % (0.0-0.9) H 05/12/20 04:25 Neut % (Auto) 89.7 % (47-70) H 05/12/20 04:25 Lymph % (Auto) 4.2 % (19-41) L 05/12/20 04:25 [place] % (Auto) 10.2 % (0-10) H 05/07/20 06:30 Absolute Neuts (auto) 11.6 X10^3/uL (2.0-7.7) H 05/12/20 04:25 Absolute Lymphs (auto) 0.54 X10^3/uL (0.83-4.51) L 05/12/20 04:25 APTT 71.8 Seconds (24.1-36.2) H 05/04/20 08:43 Fibrinogen 548 mg/dl (203-444) H 05/03/20 08:40 D-Dimer Quant (PE/DVT) 0.99 FEU/ug/m (0.27-0.49) H* 05/03/20 08:40 Sodium 135 mmol/L (136-145) L 05/05/20 06:15 Anion Gap 3 (5-15) L 05/09/20 05:50 BUN 46 mg/dL (7-18) H 05/12/20 04:25 Creatinine 0.68 mg/dL (0.70-1.30) L 05/07/20 06:30 BUN/Creatinine Ratio 48.7 RATIO (10-20) H 05/12/20 04:25 Glucose 216 mg/dL (74-106) H 05/12/20 04:25 Lactic Acid 3.0 mmol/L (0.4-1.9) H* 05/03/20 13:23 Calcium 8.3 mg/dL (8.5-10.1) L 05/12/20 04:25 Total Bilirubin 1.50 mg/dL (0.20-1.00) H 05/11/20 03:45 AST 43 U/L (15-37) H 05/11/20 03:45 C-React Prot Ext Range 120.00 mg/L (0.0-3.0) H 05/03/20 08:40 Total Protein 6.0 g/dL (6.4-8.2) L 05/10/20 08:36 Albumin 1.8 g/dL (3.2-5.0) L 05/11/20 03:45 Globulin 4.7 g/dL (2.2-4.2) H 05/11/20 03:45 Albumin/Globulin Ratio 0.4 RATIO (0.9-2.4) L 05/11/20 03:45 Procalcitonin 0.16 ng/mL (0.00-0.09) H 05/06/20 05:18 - Assessment Food / Nutrition-Related History:: Discussed in ICU rounds. Pt intubated this AM. OGT in place. Last BM 05/09/20. Last ate breakfast 05/10; was on clear liquids/NPO d/t worsening resp. status and need for possible intubation. Per dante Trejo to start enteral nutrition support this date. - Nutrition Diagnosis Problem / Etiology / Signs & Symptoms (PES):: Inadequate oral intake related to inadequate energy intake d/t resp. failure as evidenced by as evidenced by PO intake meeting less than 75% of estimated nutritional needs x 48 hours Evidence of Malnutrition Exists:: No - Nutrition Intervention Nutrition Prescription:: [id number] calories/day (ASPEN guidelines, 11-14 calories/kg). 120-144 (1-1.2 g/kg). 1650mL fluid/day (1mL/calorie) - Food / Nutrient Delivery Interventions Summary of nutrition intervention:: Will start enteral nutrition support and change diet order to NPO while intubated. Nutrition support ordered as / adjusted to:: While intubated- Vital HP via OGT at 65mL/hour w/ 50mL H2O flush every 4 hours to provide 1560 calories, 136 g protein, and 1604mL total fluid/day. Would start at 15mL/hour and increase by 10mL every 12 hours as pt tolerates until goal rate achieved. Nutrition education provided?: No - MNT Monitoring Further MNT monitoring and evaluation required?: Yes MNT Follow-up in:: 1-2 days
[2020-05-12 11:33] LABS: CPK Total, Creatine Kinase 43 U/L (39-308); Triglycerides 69 mg/dL
[2020-05-12] MEDS: Furosemide 40 MG/4 ML Vial IV (11:58)
[2020-05-12] MEDS: APIXABAN 5 MG TABLET GT ×2 (11:58→20:02)
[2020-05-12] MEDS: dexAMETHasone 4 MG Tablet 6 MG GT (11:58)
[2020-05-12] MEDS: Finasteride 5 MG Tablet PO (11:58)
[2020-05-12] MEDS: Cyanocobalamin 500 MCG Tablet 1000 MCG GT (11:59)
[2020-05-12] MEDS: Vital High Protein 1,000 ML 65 ML GT (13:05)
--- NOTE | 2020-05-12 13:17 | PN.ID_ITS ---
Patient Problems: Active and Suspected Problems Hyperglycemia due to diabetes mellitus (Acute) COVID-19 (Acute) Hypoxemia (Acute) Pulmonary embolism (Acute) Sepsis (Acute) Shortness of breath (Acute) Intraperitoneal bleeding (Suspected) Subjective: Intubated this AM, had been feeling ok per notes, no fever. Small amount of secretions from ETT since intubation. - Physical Exam Vitals/I&O's: Vital Signs Temp Pulse Resp BP Pulse Ox 97.9 F 59 L 18 100/48 L 94 05/12/20 12:00 05/12/20 13:00 05/12/20 13:00 05/12/20 13:00 05/12/20 13:00 Oxygen Flow Rate (L/min) 60 Oxygen Delivery Method Mechanical Ventilator Weight: 120.5 kg Body Mass Index (BMI) 42.2 Finger Stick Blood Glucose 161 Intake and Output for Last 24 Hours 05/10/20 05/11/20 05/12/20 23:59 23:59 23:59 Intake Total 805 / 805 621.25 / 621.25 246.01 / 246.01 Output Total 1750 / 2050 1675 / 1825 300 / 300 Balance -945 / -1245 -1053.75 / -1203.75 -53.99 / -53.99 General: No apparent distress Lungs: Diminished Cardiovascular: Regular rate, Regular Rhythm Abdomen: Soft, Non Tender, Non-Distended Skin: No rashes Laboratory Results 05/11/20 17:58: POC Glucose 198 H 05/11/20 21:41: POC Glucose 177 H 05/12/20 04:25: WBC 12.9 H, RBC 4.78, Hgb 14.4, Hct 43.4, MCV 90.8, MCH 30.1, MCHC 33.2, RDW Std Deviation 46.1 H, RDW Coeff of Taras 13.7, Plt Count 123 L, MPV 11.3, Immature Gran % (Auto) 1.000 H, Neut % (Auto) 89.7 H, Lymph % (Auto) 4.2 L , [place] % (Auto) 4.6, Eos % (Auto) 0.3, Baso % (Auto) 0.2, Absolute Neuts (auto) 11.6 H, Absolute Lymphs (auto) 0.54 L, Nucleated RBC % 0, Differential Comment SCANNED 05/12/20 04:25: Sodium 136, Potassium 4.7, Chloride 101, Carbon Dioxide 29.0, Anion Gap 6, BUN 46 H, Creatinine 0.94, Estim Creat Clear Calc 65.04, Est GFR (MDRD) Af Amer 101, Est GFR (MDRD) Non-Af 84, BUN/Creatinine Ratio 48.7 H, Glucose 216 H, Calcium 8.3 L, Phosphorus 4.9, Magnesium 2.4 05/12/20 04:25: Total Creatine Kinase 43, Triglycerides 69 Current Medications Acetaminophen (Acetaminophen 650 Mg/20 Ml Udc) 650 mg GT Q6H PRN PRN PRN Reason: Pain Score 1-10/Temp > 100.7 F Al Hydroxide/Mg Hydroxide (Mag Hydrox/Al Hydrox/Simeth 30 Ml Udc) 30 ml GT Q6H PRN PRN PRN Reason: Gastric Burning Albuterol Sulfate (Albuterol Ih 8.5 Gm (Proair) Inhaler (200 Puffs)) 2.5 puff INHALATION Q2H PRN PRN PRN Reason: Shortness of Breath/Wheezing Last Admin: 05/09/20 18:57 Dose: 2.5 puff Documented by: Apixaban (Apixaban 5 Mg Tablet) 5 mg GT BID [facility] Last Admin: 05/12/20 11:58 Dose: 5 mg Documented by: Atenolol (Atenolol 25 Mg Tablet) 12.5 mg GT DAILY [facility] Last Admin: 05/12/20 11:59 Dose: Not Given Documented by: Atorvastatin Calcium (Atorvastatin Calcium 20 Mg Tablet) 20 mg GT QHS [facility] Cholecalciferol (Cholecalciferol (Vit D3) 1,000 Unit (25mcg)) 1,000 unit GT BID [facility] Last Admin: 05/12/20 11:59 Dose: 1,000 unit Documented by: Cyanocobalamin (Cyanocobalamin 500 Mcg Tablet) 1,000 mcg GT DAILY [facility] Last Admin: 05/12/20 11:59 Dose: 1,000 mcg Documented by: Dextrose (Dextrose 50%-Water 25 Gm/50 Ml Disp.Syrin) 0 gm IV X1 PRN; Protocol PRN Reason: Hypoglycemia Last Admin: 05/11/20 03:54 Dose: 12.5 gm Documented by: Finasteride (Finasteride 5 Mg Tablet) 5 mg PO DAILY [facility] Last Admin: 05/12/20 11:58 Dose: 5 mg Documented by: Furosemide (Furosemide 40 Mg/4 Ml Vial) 40 mg IV DAILY [facility] Last Admin: 05/12/20 11:58 Dose: 40 mg Documented by: Glucagon (Glucagon 1 Mg/Ml Syringe) 1 mg IM .X1 PRN PRN Reason: Hypoglycemia Sodium Chloride () 250 mls @ 15 mls/hr IV .[id number] PRN PRN Reason: Saline Flush Last Infusion: 05/11/20 11:15 Dose: 0 mls/hr Documented by: Sodium Chloride () 250 mls @ 15 mls/hr IV .[id number] PRN PRN Reason: Additional IVPB Infusion Propofol (Diprivan) 1,000 mg in 100 mls @ 7.23 mls/hr CONT INF .Q12H [facility]; Protocol Last Titration: 05/12/20 13:00 Dose: 20 mcg/kg/min, 14.5 mls/hr Documented by: Fentanyl Citrate 1,000 mcg/ (Sodium Chloride) 100 mls @ 5 mls/hr CONT INF .Q20H [facility]; Protocol Last Admin: 05/12/20 13:00 Dose: 150 mcg/hr, 15 mls/hr Documented by: Enteral Nutritional Formula (Vital High Protein) 1,000 mls @ 65 mls/hr GT .[id number] [facility] Last Admin: 05/12/20 13:05 Dose: 65 mls/hr Documented by: Insulin Glargine (Insulin Glargine 100 Units/Ml Pen) 15 units SC 1100,2200 [facility] Last Admin: 05/12/20 11:58 Dose: 15 u Documented by: Insulin Human Lispro (Insulin Lispro 100 Unit/Ml Insuln.Pen) 0 unit SC Q6 [facility]; Protocol Last Admin: 05/12/20 11:59 Dose: Not Given Documented by: Lorazepam (Lorazepam 2 Mg/Ml Syringe) 2 mg IV Q2H PRN PRN PRN Reason: ANXIETY/AGITATION Last Admin: 05/12/20 10:00 Dose: 2 mg Documented by: Magnesium Hydroxide (Magnesium Hydroxide 30 Ml Udc) 30 ml GT DAILY PRN PRN PRN Reason: Constipation Melatonin (Melatonin 3 Mg Tablet) 3 mg PO QHS PRN PRN PRN Reason: INSOMNIA Last Admin: 05/11/20 21:42 Dose: 3 mg Documented by: Nitroglycerin (Nitroglycerin (Inpatient Use) 0.4 Mg Tab.Subl) 0.4 mg SUBLINGUAL Q5M PRN PRN Reason: CARDIAC/CHEST PAIN Ondansetron HCl (Ondansetron 4 Mg/2 Ml Vial) 4 mg IV Q8H PRN PRN PRN Reason: NAUSEA/VOMITING Last Admin: 05/11/20 09:14 Dose: 4 mg Documented by: Prochlorperazine Edisylate (Prochlorperazine 10 Mg/2 Ml Vial) 5 mg IV Q4H PRN PRN PRN Reason: Breakthrough nausea/vomiting Senna/Docusate Sodium (Senna/Docusate Sodium 1 Tablet) 2 tablet GT BID KEERTHI Sodium Chloride (0.9% Saline Lock 10 Ml Syringe) 10 - 40 ml IV UD PRN PRN Reason: SALINE FLUSH Last Admin: 05/11/20 18:03 Dose: 20 ml Documented by: Sodium Chloride (Sodium Chloride 0.65% 1 Gladys Gladys.Btl) 2 spray NASAL TID PRN PRN PRN Reason: NASAL DRYNESS Last Admin: 05/06/20 21:47 Dose: 2 spray Documented by: Tamsulosin HCl (Tamsulosin Hcl 0.4 Mg Capsule) 0.4 mg PO QHS KEERTHI Last Admin: 05/11/20 19:36 Dose: 0.4 mg Documented by: Medical Necessity - Tobacco Use Smoking Status: Never smoker Route of nutrition/ use of supplements: [] Nutritional Intake: [] IV Site: [] Rao Catheter: [] - Assessment/Plan Antibiotics: [] Assessment/Plan: [] Active and Suspected Problems Hyperglycemia due to diabetes mellitus (Acute) COVID-19 (Acute) Hypoxemia (Acute) Pulmonary embolism (Acute) Sepsis (Acute) Shortness of breath (Acute) Intraperitoneal bleeding (Suspected) covid with hypoxia and PEs - sx started 04/23, (+) covid as an outpt. On dex, anticoagulation, and completed remdesivir. 1 of 2 bcx with CoNS, consistent with contaminant. Sputum with haemophilus and strep, treated with 7 days of ceftriaxone. Now intubated this AM, sputum cx sent. Will follow, d/w nursing
[2020-05-12] MEDS: Propofol 10MG/Ml 1,000 MG/100 ML Bottle 14.5 MG CONT INF (14:30)
--- NOTE | 2020-05-12 16:43 | RAD_ITS ---
HISTORY: PICC LINE PLACEMENT XR Chest 1 View TECHNIQUE: Single frontal view of chest. # of images incl. paperwork: 1 COMPARISON: 05/12/2020 at 9:34 AM FINDINGS: LINES: Interval placement of left-sided PICC line with the tip within the mid SVC. ET tube and nasogastric tube unchanged. CARDIOVASCULAR STRUCTURES: Normal heart size. LUNGS: Moderate parenchymal opacities throughout bilateral lungs compatible with multifocal pneumonia. PLEURA: No layering pleural effusions or pneumothorax. BONES: No acute osseous abnormality of the thorax. RAD/Chest 1 View (Portable) IMPRESSION: 1. Interval placement of left-sided PICC line with the tip within the mid SVC. No pneumothorax. 2. No significant interval change of cardiopulmonary status. at 1824 Reported and signed by: Keagan Hensley MD Electronically Signed: Keagan Hensley MD at 18:23 EST Tel , Service support ,
[2020-05-12] MEDS: Insulin Lispro 100 UNIT/ML INSULN.PEN SC (17:34)
[2020-05-12 18:00] LABS: Bedside Glucose 270 mg/dL (70-110)
[2020-05-12] MEDS: 0.9% Saline Lock 10 ML Syringe IV (20:01)
[2020-05-12] MEDS: Tamsulosin HCl 0.4 MG Capsule PO (20:01)
[2020-05-12] MEDS: Atorvastatin Calcium 20 MG Tablet GT (20:02)
[2020-05-12] MEDS: Senna/Docusate Sodium 1 Tablet 2 TABLET GT (20:02)
[2020-05-12] MEDS: Propofol 10MG/Ml 1,000 MG/100 ML Bottle 10.8 MG CONT INF (22:36)
[2020-05-12 23:05] LABS: Bedside Glucose 307 mg/dL (70-110)
[2020-05-13] VITALS (32 sets, daily range): BP systolic 95–155; BP diastolic 42–55; PULSE 44–67; RESP 11–21; TEMP 36.4–37.7; O2SAT 91–97
[2020-05-13] MEDS: Insulin Lispro 100 UNIT/ML INSULN.PEN SC ×5 (00:28→23:46)
[2020-05-13 03:48] LABS: Absolute Lymphocyte Count 0.48 X10^3/uL (0.83-4.51); Absolute Neutrophil Count 11.2 X10^3/uL (2.0-7.7); Basophil# 0.01 X10^3/uL; Basophil% 0.1 % (0-1); Eosinophil# 0.01 X10^3/uL; Eosinophils% 0.1 % (0-5); Hematocrit 39.9 % (40-54); Hemoglobin 13.2 g/dL (13.0-16.5); Lymphocyte # 0.48 X10^3/ul (4.0); Lymphocyte % 3.9 % (19-41); Mean Corp Hgb Conc 33.1 g/dL (32-36); Mean Corpuscular Hgb 30.8 pg (27.0-32.0); Mean Corpuscular Volume 93.2 fL (80-94); Mean Platelet Vol. 10.7 fl (6.2-12.0); Monocyte# 0.49 X10^3/uL; NRBC Flagged by Analyzer 0 % (0-5); Neutrophil # 11.16 X10^3/uL (2.7-7.7); POSITIVE DIFFERENTIAL YES; Platelet Count 116 K/mm3 (150-450); RBC Distribution Width CV 13.7 % (11.6-14.6); RBC Distribution Width SD 46.7 fl (35.1-43.9); Red Blood Count 4.28 M/mm3 (4.6-6.2); White Blood Count 12.3 K/mm3 (4.4-11.0)
[2020-05-13 03:50] LABS: Differential Indicated SCAN CRITERIA MET
[2020-05-13 04:06] LABS: Differential Comment SCANNED
[2020-05-13] MEDS: TITRATION PARAMETER CHANGE 1 EACH IV (04:12)
[2020-05-13 05:07] LABS: ALB/GLOB Ratio 0.4 RATIO (0.9-2.4); AST(SGOT) 53 U/L (15-37); Alanine Aminotransfer ALT/SGPT 78 U/L (16-61); Albumin, Serum 1.7 g/dL (3.2-5.0); Alkaline Phosphatase 119 U/L (45-117); Anion Gap 6 (5-15); BUN 74 mg/dL (7-18); BUN/Creat Ratio 56.9 RATIO (10-20); Calcium,Total 8.3 mg/dL (8.5-10.1); Chloride 99 mmol/L (98-107); EST Glomerular Filtration Rate 58 mL/min (>60); Est Glom Filt Rate - Afr Amer 70 mL/min (>60); Estimated Creatinine Clearance 47.03 ml/min; Glucose 364 mg/dL (74-106); Potassium 4.8 mmol/L (3.5-5.1); Protein, Total 5.7 g/dL (6.4-8.2); Sodium Level 134 mmol/L (136-145)
[2020-05-13] MEDS: Polyethylene Glycol 3350 17 GM PACKET GT (05:32)
[2020-05-13 05:45] LABS: Bedside Glucose 335 mg/dL (70-110)
--- NOTE | 2020-05-13 07:44 | PN_ITS ---
Subjective: Patient did okay overnight. Oxygen status has improved compared to previous. Blood sugars have been elevated. Significant secretions have been noted and endotracheal tube. Nursing did report that patient has signs of breakdown in the gluteal fold. General: - - Intubated and sedated. RASS -1. HEENT: Atraumatic, PERRLA, EOMI, Normocephalic, - - No scleral icterus or injection noted Oral: Moist Mucosa, No Gingival or Mucosal Lesions/ Ulcerations, - - Some breakdown of the lip noted Neck: Supple, No JVD, No Nodes, Trachea Midline Lungs: No wheeze, No rales, Diminished, Rhonchi, - - Symmetric expansion Cardiovascular: Regular rate, Regular Rhythm, Normal S1, Normal S2, No murmurs, No rub noted, No Gallop Abdomen: Bowel Sounds Present, Soft, Non Tender, Non-Distended Extremities: No clubbing, No cyanosis, Edema - Trace to lower extremity Skin: No rashes, No breakdown Musculoskeletal: No Tenderness to Palpation of Joints or Extremities Lymphatic: No Cervical, Supraclavicular, or Inguinal Adenopathy Neurological: Cranial nerves II-XII grossly intact, Neuro grossly intact, Motor Exam 5/5 strength throughout Psych/Mental Status: Flat Affect Vital Signs Temp Pulse Resp BP Pulse Ox 36.4 C L 65 16 106/50 L 95 05/13/20 04:00 05/13/20 07:12 05/13/20 07:12 05/13/20 07:00 05/13/20 07:12 Oxygen Flow Rate (L/min) 60 Oxygen Delivery Method Mechanical Ventilator Weight: 126.3 kg Body Mass Index (BMI) 42.2 Finger Stick Blood Glucose 161 Intake and Output for Last 24 Hours 05/11/20 05/12/20 05/13/20 23:59 23:59 23:59 Intake Total 621.25 / 621.25 494.58 / 878.38 695.53 / 695.53 Output Total 1675 / 1825 575 / 850 675 / 675 Balance -1053.75 / -1203.75 -80.42 / 28.38 20.53 / 20.53 Labs (Last 48 Hours) 05/11/20 05/11/20 05/11/20 10:56 17:58 21:41 WBC RBC Hgb Hct MCV MCH MCHC RDW Std Deviation RDW Coeff of Taras Plt Count MPV Immature Gran % (Auto) Neut % (Auto) Lymph % (Auto) [place] % (Auto) Eos % (Auto) Baso % (Auto) Absolute Neuts (auto) Absolute Lymphs (auto) Nucleated RBC % Differential Comment Sodium Potassium Chloride Carbon Dioxide Anion Gap BUN Creatinine Estim Creat Clear Calc Est GFR (MDRD) Af Amer Est GFR (MDRD) Non-Af BUN/Creatinine Ratio Glucose Calcium Phosphorus Magnesium Total Bilirubin AST ALT Alkaline Phosphatase Total Creatine Kinase Total Protein Albumin Globulin Albumin/Globulin Ratio Triglycerides POC Glucose 91 198 H 177 H 05/12/20 05/12/20 05/12/20 04:25 04:25 04:25 WBC 12.9 H RBC 4.78 Hgb 14.4 Hct 43.4 MCV 90.8 MCH 30.1 MCHC 33.2 RDW Std Deviation 46.1 H RDW Coeff of Taras 13.7 Plt Count 123 L MPV 11.3 Immature Gran % (Auto) 1.000 H Neut % (Auto) 89.7 H Lymph % (Auto) 4.2 L [place] % (Auto) 4.6 Eos % (Auto) 0.3 Baso % (Auto) 0.2 Absolute Neuts (auto) 11.6 H Absolute Lymphs (auto) 0.54 L Nucleated RBC % 0 Differential Comment SCANNED Sodium 136 Potassium 4.7 Chloride 101 Carbon Dioxide 29.0 Anion Gap 6 BUN 46 H Creatinine 0.94 Estim Creat Clear Calc 65.04 Est GFR (MDRD) Af Amer 101 Est GFR (MDRD) Non-Af 84 BUN/Creatinine Ratio 48.7 H Glucose 216 H Calcium 8.3 L Phosphorus 4.9 Magnesium 2.4 Total Bilirubin AST ALT Alkaline Phosphatase Total Creatine Kinase 43 Total Protein Albumin Globulin Albumin/Globulin Ratio Triglycerides 69 POC Glucose 05/12/20 05/12/20 05/13/20 17:33 19:53 03:40 WBC 12.3 H RBC 4.28 L Hgb 13.2 Hct 39.9 L MCV 93.2 MCH 30.8 MCHC 33.1 RDW Std Deviation 46.7 H RDW Coeff of Taras 13.7 Plt Count 116 L MPV 10.7 Immature Gran % (Auto) 0.900 Neut % (Auto) 91.0 H Lymph % (Auto) 3.9 L [place] % (Auto) 4.0 Eos % (Auto) 0.1 Baso % (Auto) 0.1 Absolute Neuts (auto) 11.2 H Absolute Lymphs (auto) 0.48 L Nucleated RBC % 0 Differential Comment SCANNED Sodium Potassium Chloride Carbon Dioxide Anion Gap BUN Creatinine Estim Creat Clear Calc Est GFR (MDRD) Af Amer Est GFR (MDRD) Non-Af BUN/Creatinine Ratio Glucose Calcium Phosphorus Magnesium Total Bilirubin AST ALT Alkaline Phosphatase Total Creatine Kinase Total Protein Albumin Globulin Albumin/Globulin Ratio Triglycerides POC Glucose 270 H 307 H 05/13/20 05/13/20 03:40 05:31 WBC RBC Hgb Hct MCV MCH MCHC RDW Std Deviation RDW Coeff of Taras Plt Count MPV Immature Gran % (Auto) Neut % (Auto) Lymph % (Auto) [place] % (Auto) Eos % (Auto) Baso % (Auto) Absolute Neuts (auto) Absolute Lymphs (auto) Nucleated RBC % Differential Comment Sodium 134 L Potassium 4.8 Chloride 99 Carbon Dioxide 29.0 Anion Gap 6 BUN 74 H Creatinine 1.30 Estim Creat Clear Calc 47.03 Est GFR (MDRD) Af Amer 70 Est GFR (MDRD) Non-Af 58 L BUN/Creatinine Ratio 56.9 H Glucose 364 H Calcium 8.3 L Phosphorus Magnesium Total Bilirubin 1.40 H AST 53 H ALT 78 H Alkaline Phosphatase 119 H Total Creatine Kinase Total Protein 5.7 L Albumin 1.7 L Globulin 4.0 Albumin/Globulin Ratio 0.4 L Triglycerides POC Glucose 335 H Microbiology 05/12/20 09:40 Sputum, Induced/Lukens Gram Stain - Final Medical Necessity - Tobacco Use Smoking Status: Never smoker Assessment/Plan All Active Problems Hyperglycemia due to diabetes mellitus (Acute) COVID-19 (Acute) Hypoxemia (Acute) Pulmonary embolism (Acute) Sepsis (Acute) History of cholecystectomy (Resolved) Shortness of breath (Acute) RECOMMENDATIONS: 1. Wean PEEP as necessary. Continue to wean FiO2 to maintain saturations at or above 90%. 2. Continue Decadron with plans to complete a 10-day treatment course. 3. Continue systemic anticoagulation with Eliquis. 4. Propofol and fentanyl for vent synchrony. Await sputum culture after intubation 5. Titrate tube feeds to goal. Increase insulin coverage. 6. Continue attempts at gentle diuresis as tolerated by hemodynamics and renal function. IMPRESSIONS: 1. Acute hypoxemic respiratory failure secondary to COVID-19 pneumonia and bilateral pulmonary emboli Patient with consistent decompensation over hospital course. Patient was on BiPAP for essentially 3 days prior to requiring intubation on 05/12/2020. Oxygenation status has significantly improved, possibly secondary to better pulmonary toileting. Discontinue Ativan. Increase tube feeds to goal. Will need increased Lantus with sliding scale. PICC line was placed for access 2. Diabetes mellitus/hypertension/hyperlipidemia/BPH/obesity/paroxysmal atrial fibrillation Complicates care, management, recovery and prognosis. Recommend complete discontinuation of Pradaxa given high risk for bleeding complications. Increase Lantus TIME: 38 minutes of critical care time spent addressing patient's acute hypoxic respiratory failure, COVID-19 pneumonia, pulmonary emboli, review of all data and collaboration with care team (5:30 AM to 7:30 AM) [phone]: [id number] Critical care first hour
[2020-05-13] MEDS: Propofol 10MG/Ml 1,000 MG/100 ML Bottle 11.4 MG CONT INF ×3 (08:06→20:54)
[2020-05-13] MEDS: Menthol/Lanolin/Calamine/Znox 113 GM Tube 1 APPLIC TOPICAL ×3 (08:30→17:28)
--- NOTE | 2020-05-13 09:41 | PN.ID_ITS ---
Patient Problems: Active and Suspected Problems Hyperglycemia due to diabetes mellitus (Acute) COVID-19 (Acute) Hypoxemia (Acute) Pulmonary embolism (Acute) Sepsis (Acute) Shortness of breath (Acute) Intraperitoneal bleeding (Suspected) Subjective: On vent, O2 improved, no fever - Physical Exam Vitals/I&O's: Vital Signs Temp Pulse Resp BP Pulse Ox 97.5 F L 65 16 106/50 L 95 05/13/20 04:00 05/13/20 07:12 05/13/20 07:12 05/13/20 07:00 05/13/20 07:12 Oxygen Flow Rate (L/min) 60 Oxygen Delivery Method Mechanical Ventilator Weight: 126.3 kg Body Mass Index (BMI) 42.2 Finger Stick Blood Glucose 161 Intake and Output for Last 24 Hours 05/11/20 05/12/20 05/13/20 23:59 23:59 23:59 Intake Total 621.25 / 621.25 494.58 / 878.38 735.77 / 735.77 Output Total 1675 / 1825 575 / 850 675 / 675 Balance -1053.75 / -1203.75 -80.42 / 28.38 60.77 / 60.77 General: No apparent distress Lungs: Diminished Cardiovascular: Regular rate, Regular Rhythm Abdomen: Soft, Non Tender, Non-Distended Skin: No rashes Microbiology Past 72 Hours 05/12/20 09:40 Sputum, Induced/Lukens Gram Stain - Final Laboratory Results 05/12/20 04:25: Total Creatine Kinase 43, Triglycerides 69 05/12/20 17:33: POC Glucose 270 H 05/12/20 19:53: POC Glucose 307 H 05/13/20 03:40: WBC 12.3 H, RBC 4.28 L, Hgb 13.2, Hct 39.9 L, MCV 93.2, MCH 30.8, MCHC 33.1, RDW Std Deviation 46.7 H, RDW Coeff of Taras 13.7, Plt Count 116 L, MPV 10.7, Immature Gran % (Auto) 0.900, Neut % (Auto) 91.0 H, Lymph % (Auto) 3.9 L, [place] % (Auto) 4.0, Eos % (Auto) 0.1, Baso % (Auto) 0.1, Absolute Neuts (auto) 11.2 H, Absolute Lymphs (auto) 0.48 L, Nucleated RBC % 0, Differential Comment SCANNED 05/13/20 03:40: Sodium 134 L, Potassium 4.8, Chloride 99, Carbon Dioxide 29.0, Anion Gap 6, BUN 74 H, Creatinine 1.30, Estim Creat Clear Calc 47.03, Est GFR (MDRD) Af Amer 70, Est GFR (MDRD) Non-Af 58 L, BUN/Creatinine Ratio 56.9 H, Glucose 364 H, Calcium 8.3 L, Total Bilirubin 1.40 H, AST 53 H, ALT 78 H, Alkaline Phosphatase 119 H, Total Protein 5.7 L, Albumin 1.7 L, Globulin 4.0, Albumin/Globulin Ratio 0.4 L 05/13/20 05:31: POC Glucose 335 H Current Medications Acetaminophen (Acetaminophen 650 Mg/20 Ml Udc) 650 mg GT Q6H PRN PRN PRN Reason: Pain Score 1-10/Temp > 100.7 F Al Hydroxide/Mg Hydroxide (Mag Hydrox/Al Hydrox/Simeth 30 Ml Udc) 30 ml GT Q6H PRN PRN PRN Reason: Gastric Burning Albuterol Sulfate (Albuterol Ih 8.5 Gm (Proair) Inhaler (200 Puffs)) 2.5 puff INHALATION Q2H PRN PRN PRN Reason: Shortness of Breath/Wheezing Last Admin: 05/09/20 18:57 Dose: 2.5 puff Documented by: Apixaban (Apixaban 5 Mg Tablet) 5 mg GT BID [facility] Last Admin: 05/12/20 20:02 Dose: 5 mg Documented by: Atenolol (Atenolol 25 Mg Tablet) 12.5 mg GT DAILY [facility] Last Admin: 05/12/20 11:59 Dose: Not Given Documented by: Atorvastatin Calcium (Atorvastatin Calcium 20 Mg Tablet) 20 mg GT QHS [facility] Last Admin: 05/12/20 20:02 Dose: 20 mg Documented by: Calamine/Phenol (Menthol/Lanolin/Calamine/Znox 113 Gm Tube) 1 applic TOPICAL TIDCM [facility]; Protocol Last Admin: 05/13/20 08:30 Dose: 1 applicatio Documented by: Chlorhexidine Gluconate (Chlorhexidine 15 Ml) 15 ml PO BID [facility] Cholecalciferol (Cholecalciferol (Vit D3) 1,000 Unit (25mcg)) 1,000 unit GT BID [facility] Last Admin: 05/12/20 20:01 Dose: 1,000 unit Documented by: Cyanocobalamin (Cyanocobalamin 500 Mcg Tablet) 1,000 mcg GT DAILY [facility] Last Admin: 05/12/20 11:59 Dose: 1,000 mcg Documented by: Dexamethasone (Dexamethasone 4 Mg Tablet) 6 mg GT DAILY [facility] Stop: 05/21/20 10:01 Dextrose (Dextrose 50%-Water 25 Gm/50 Ml Disp.Syrin) 0 gm IV X1 PRN; Protocol PRN Reason: Hypoglycemia Last Admin: 05/11/20 03:54 Dose: 12.5 gm Documented by: Finasteride (Finasteride 5 Mg Tablet) 5 mg PO DAILY [facility] Last Admin: 05/12/20 11:58 Dose: 5 mg Documented by: Furosemide (Furosemide 40 Mg/4 Ml Vial) 40 mg IV DAILY [facility] Last Admin: 05/12/20 11:58 Dose: 40 mg Documented by: Glucagon (Glucagon 1 Mg/Ml Syringe) 1 mg IM .X1 PRN PRN Reason: Hypoglycemia Sodium Chloride () 250 mls @ 15 mls/hr IV .[id number] PRN PRN Reason: Saline Flush Last Admin: 05/13/20 09:00 Dose: 15 mls/hr Documented by: Sodium Chloride () 250 mls @ 15 mls/hr IV .[id number] PRN PRN Reason: Additional IVPB Infusion Propofol (Diprivan) 1,000 mg in 100 mls @ 7.578 mls/hr CONT INF .Q12H [facility]; Protocol Last Admin: 05/13/20 09:26 Dose: Not Given Documented by: Fentanyl Citrate 1,000 mcg/ (Sodium Chloride) 100 mls @ 5 mls/hr CONT INF .Q20H [facility]; Protocol Last Titration: 05/13/20 09:00 Dose: 125 mcg/hr, 12.5 mls/hr Documented by: Enteral Nutritional Formula (Vital High Protein) 1,000 mls @ 65 mls/hr GT .[id number] [facility] Last Admin: 05/13/20 04:58 Dose: Not Given Documented by: Pantoprazole Sodium 40 mg/ (Sodium Chloride) 110 mls @ 330 mls/hr IV Q12 [facility] Insulin Glargine (Insulin Glargine 100 Units/Ml Pen) 35 units SC 1100,2200 [facility] Insulin Human Lispro (Insulin Lispro 100 Unit/Ml Insuln.Pen) 0 unit SC Q6 [facility]; Protocol Last Admin: 05/13/20 05:32 Dose: 8 u Documented by: Magnesium Hydroxide (Magnesium Hydroxide 30 Ml Udc) 30 ml GT DAILY PRN PRN PRN Reason: Constipation Melatonin (Melatonin 3 Mg Tablet) 3 mg PO QHS PRN PRN PRN Reason: INSOMNIA Last Admin: 05/11/20 21:42 Dose: 3 mg Documented by: Nitroglycerin (Nitroglycerin (Inpatient Use) 0.4 Mg Tab.Subl) 0.4 mg SUBLINGUAL Q5M PRN PRN Reason: CARDIAC/CHEST PAIN Ondansetron HCl (Ondansetron 4 Mg/2 Ml Vial) 4 mg IV Q8H PRN PRN PRN Reason: NAUSEA/VOMITING Last Admin: 05/11/20 09:14 Dose: 4 mg Documented by: Prochlorperazine Edisylate (Prochlorperazine 10 Mg/2 Ml Vial) 5 mg IV Q4H PRN PRN PRN Reason: Breakthrough nausea/vomiting Senna/Docusate Sodium (Senna/Docusate Sodium 1 Tablet) 2 tablet GT BID [facility] Last Admin: 05/12/20 20:02 Dose: 2 tablet Documented by: Sodium Chloride (0.9% Saline Lock 10 Ml Syringe) 10 - 40 ml IV UD PRN PRN Reason: SALINE FLUSH Last Admin: 05/12/20 20:01 Dose: 10 ml Documented by: Sodium Chloride (Sodium Chloride 0.65% 1 [place].Btl) 2 spray NASAL TID PRN PRN PRN Reason: NASAL DRYNESS Last Admin: 05/06/20 21:47 Dose: 2 spray Documented by: Tamsulosin HCl (Tamsulosin Hcl 0.4 Mg Capsule) 0.4 mg PO QHS [facility] Last Admin: 05/12/20 20:01 Dose: 0.4 mg Documented by: Medical Necessity - Tobacco Use Smoking Status: Never smoker Route of nutrition/ use of supplements: [] Nutritional Intake: [] IV Site: [] Rao Catheter: [] - Assessment/Plan Antibiotics: [] Assessment/Plan: [] Active and Suspected Problems Hyperglycemia due to diabetes mellitus (Acute) COVID-19 (Acute) Hypoxemia (Acute) Pulmonary embolism (Acute) Sepsis (Acute) Shortness of breath (Acute) Intraperitoneal bleeding (Suspected) covid with hypoxia and PEs - sx started 04/23, (+) covid as an outpt. On dex, anticoagulation, and completed remdesivir. 1 of 2 bcx with CoNS, consistent with contaminant. Sputum with haemophilus and strep, treated with 7 days of ceftriaxone. Now intubated 2/3, sputum cx neg so far. O2 improved. Will extend course of dex. Will follow
[2020-05-13] MEDS: Chlorhexidine 15 ML PO ×2 (10:47→20:54)
[2020-05-13] MEDS: APIXABAN 5 MG TABLET GT ×2 (10:48→20:57)
[2020-05-13] MEDS: Cyanocobalamin 500 MCG Tablet 1000 MCG GT (10:48)
[2020-05-13] MEDS: dexAMETHasone 4 MG Tablet 6 MG GT (10:48)
[2020-05-13] MEDS: Senna/Docusate Sodium 1 Tablet 2 TABLET GT ×2 (10:48→20:58)
[2020-05-13] MEDS: Atenolol 25 MG Tablet 12.5 MG GT (10:49)
[2020-05-13] MEDS: Furosemide 40 MG/4 ML Vial IV (10:49)
[2020-05-13 11:00] LABS: Bedside Glucose 374 mg/dL (70-110)
--- NOTE | 2020-05-13 12:53 | PN_ITS ---
Patient Problems: Active and Suspected Problems Hyperglycemia due to diabetes mellitus (Acute) COVID-19 (Acute) Hypoxemia (Acute) Pulmonary embolism (Acute) Sepsis (Acute) Shortness of breath (Acute) Intraperitoneal bleeding (Suspected) Subjective: Patient intubated, sedated and on a ventilator. O2 has been weaned from 70 to 60% in the last 24 hours and oxygenation remained stable. Vitals/I&O's: Vital Signs Temp Pulse Resp BP Pulse Ox 99.9 F H 61 18 101/44 L 95 05/13/20 08:00 05/13/20 11:10 05/13/20 11:10 05/13/20 09:00 05/13/20 11:10 Oxygen Flow Rate (L/min) 60 Oxygen Delivery Method Mechanical Ventilator Weight: 126.3 kg Body Mass Index (BMI) 42.2 Finger Stick Blood Glucose 161 Intake and Output for Last 24 Hours 05/11/20 05/12/20 05/13/20 23:59 23:59 23:59 Intake Total 621.25 / 621.25 494.58 / 878.38 787.77 / 787.77 Output Total 1675 / 1825 575 / 850 1125 / 1125 Balance -1053.75 / -1203.75 -80.42 / 28.38 -337.23 / -337.23 Microbiology Past 72 Hours 05/12/20 09:40 Sputum, Induced/Lukens Gram Stain - Final 05/12/20 09:40 Sputum, Induced/Lukens Respiratory Culture - Preliminary Presumptive C albicans Laboratory Results 05/12/20 17:33: POC Glucose 270 H 05/12/20 19:53: POC Glucose 307 H 05/13/20 03:40: WBC 12.3 H, RBC 4.28 L, Hgb 13.2, Hct 39.9 L, MCV 93.2, MCH 30.8, MCHC 33.1, RDW Std Deviation 46.7 H, RDW Coeff of Taras 13.7, Plt Count 116 L, MPV 10.7, Immature Gran % (Auto) 0.900, Neut % (Auto) 91.0 H, Lymph % (Auto) 3.9 L, [place] % (Auto) 4.0, Eos % (Auto) 0.1, Baso % (Auto) 0.1, Absolute Neuts (auto) 11.2 H, Absolute Lymphs (auto) 0.48 L, Nucleated RBC % 0, Differential Comment SCANNED 05/13/20 03:40: Sodium 134 L, Potassium 4.8, Chloride 99, Carbon Dioxide 29.0, Anion Gap 6, BUN 74 H, Creatinine 1.30, Estim Creat Clear Calc 47.03, Est GFR (MDRD) Af Amer 70, Est GFR (MDRD) Non-Af 58 L, BUN/Creatinine Ratio 56.9 H, Glucose 364 H, Calcium 8.3 L, Total Bilirubin 1.40 H, AST 53 H, ALT 78 H, Alkaline Phosphatase 119 H, Total Protein 5.7 L, Albumin 1.7 L, Globulin 4.0, Albumin/Globulin Ratio 0.4 L 05/13/20 05:31: POC Glucose 335 H 05/13/20 10:47: POC Glucose 374 H Current Medications Acetaminophen (Acetaminophen 650 Mg/20 Ml Udc) 650 mg GT Q6H PRN PRN PRN Reason: Pain Score 1-10/Temp > 100.7 F Al Hydroxide/Mg Hydroxide (Mag Hydrox/Al Hydrox/Simeth 30 Ml Udc) 30 ml GT Q6H PRN PRN PRN Reason: Gastric Burning Albuterol Sulfate (Albuterol Ih 8.5 Gm (Proair) Inhaler (200 Puffs)) 2.5 puff INHALATION Q2H PRN PRN PRN Reason: Shortness of Breath/Wheezing Last Admin: 05/09/20 18:57 Dose: 2.5 puff Documented by: Apixaban (Apixaban 5 Mg Tablet) 5 mg GT BID [facility] Last Admin: 05/13/20 10:48 Dose: 5 mg Documented by: Atenolol (Atenolol 25 Mg Tablet) 12.5 mg GT DAILY [facility] Last Admin: 05/13/20 10:49 Dose: 12.5 mg Documented by: Atorvastatin Calcium (Atorvastatin Calcium 20 Mg Tablet) 20 mg GT QHS [facility] Last Admin: 05/12/20 20:02 Dose: 20 mg Documented by: Calamine/Phenol (Menthol/Lanolin/Calamine/Znox 113 Gm Tube) 1 applic TOPICAL TIDCM [facility]; Protocol Last Admin: 05/13/20 10:55 Dose: 1 applicatio Documented by: Chlorhexidine Gluconate (Chlorhexidine 15 Ml) 15 ml PO BID [facility] Last Admin: 05/13/20 10:47 Dose: 15 ml Documented by: Cholecalciferol (Cholecalciferol (Vit D3) 1,000 Unit (25mcg)) 1,000 unit GT BID [facility] Last Admin: 05/13/20 10:48 Dose: 1,000 unit Documented by: Cyanocobalamin (Cyanocobalamin 500 Mcg Tablet) 1,000 mcg GT DAILY [facility] Last Admin: 05/13/20 10:48 Dose: 1,000 mcg Documented by: Dexamethasone (Dexamethasone 4 Mg Tablet) 6 mg GT DAILY [facility] Stop: 05/21/20 10:01 Last Admin: 05/13/20 10:48 Dose: 6 mg Documented by: Dextrose (Dextrose 50%-Water 25 Gm/50 Ml Disp.Syrin) 0 gm IV X1 PRN; Protocol PRN Reason: Hypoglycemia Last Admin: 05/11/20 03:54 Dose: 12.5 gm Documented by: Furosemide (Furosemide 40 Mg/4 Ml Vial) 40 mg IV DAILY [facility] Last Admin: 05/13/20 10:49 Dose: 40 mg Documented by: Glucagon (Glucagon 1 Mg/Ml Syringe) 1 mg IM .X1 PRN PRN Reason: Hypoglycemia Sodium Chloride () 250 mls @ 15 mls/hr IV .[id number] PRN PRN Reason: Saline Flush Last Infusion: 05/13/20 12:28 Dose: 0 mls/hr Documented by: Sodium Chloride () 250 mls @ 15 mls/hr IV .[id number] PRN PRN Reason: Additional IVPB Infusion Propofol (Diprivan) 1,000 mg in 100 mls @ 7.578 mls/hr CONT INF .Q12H [facility]; Protocol Last Admin: 05/13/20 09:26 Dose: Not Given Documented by: Fentanyl Citrate 1,000 mcg/ (Sodium Chloride) 100 mls @ 5 mls/hr CONT INF .Q20H [facility]; Protocol Last Titration: 05/13/20 09:00 Dose: 125 mcg/hr, 12.5 mls/hr Documented by: Enteral Nutritional Formula (Vital High Protein) 1,000 mls @ 65 mls/hr GT .[id number] [facility] Last Admin: 05/13/20 04:58 Dose: Not Given Documented by: Pantoprazole Sodium 40 mg/ (Sodium Chloride) 110 mls @ 330 mls/hr IV Q12 [facility] Last Admin: 05/13/20 12:28 Dose: 330 mls/hr Documented by: Insulin Glargine (Insulin Glargine 100 Units/Ml Pen) 35 units SC BID [facility] Last Admin: 05/13/20 10:50 Dose: 35 u Documented by: Insulin Human Lispro (Insulin Lispro 100 Unit/Ml Insuln.Pen) 0 unit SC Q6 [facility]; Protocol Last Admin: 05/13/20 10:55 Dose: 8 u Documented by: Magnesium Hydroxide (Magnesium Hydroxide 30 Ml Udc) 30 ml GT DAILY PRN PRN PRN Reason: Constipation Melatonin (Melatonin 3 Mg Tablet) 3 mg PO QHS PRN PRN PRN Reason: INSOMNIA Last Admin: 05/11/20 21:42 Dose: 3 mg Documented by: Nitroglycerin (Nitroglycerin (Inpatient Use) 0.4 Mg Tab.Subl) 0.4 mg SUBLINGUAL Q5M PRN PRN Reason: CARDIAC/CHEST PAIN Ondansetron HCl (Ondansetron 4 Mg/2 Ml Vial) 4 mg IV Q8H PRN PRN PRN Reason: NAUSEA/VOMITING Last Admin: 05/11/20 09:14 Dose: 4 mg Documented by: Prochlorperazine Edisylate (Prochlorperazine 10 Mg/2 Ml Vial) 5 mg IV Q4H PRN PRN PRN Reason: Breakthrough nausea/vomiting Senna/Docusate Sodium (Senna/Docusate Sodium 1 Tablet) 2 tablet GT BID [facility] Last Admin: 05/13/20 10:48 Dose: 2 tablet Documented by: Sodium Chloride (0.9% Saline Lock 10 Ml Syringe) 10 - 40 ml IV UD PRN PRN Reason: SALINE FLUSH Last Admin: 05/12/20 20:01 Dose: 10 ml Documented by: Sodium Chloride (Sodium Chloride 0.65% 1 [place].Btl) 2 spray NASAL TID PRN PRN PRN Reason: NASAL DRYNESS Last Admin: 05/06/20 21:47 Dose: 2 spray Documented by: STROKE Vital Signs/Narrative: Vital Signs Pulse Resp BP Pulse Ox 05/13/20 11:10 61 18 95 05/13/20 09:00 67 16 101/44 L 93 Medical Necessity - Tobacco Use Smoking Status: Never smoker Assessment/Plan All Active Problems Hyperglycemia due to diabetes mellitus (Acute) COVID-19 (Acute) Hypoxemia (Acute) Pulmonary embolism (Acute) Sepsis (Acute) History of cholecystectomy (Resolved) Shortness of breath (Acute) Acute hypoxic respiratory failure secondary to COVID-19 pneumonia and bilateral PE -Patient is currently intubated on a ventilator (intubation 05/12/2020) -Wean PEEP and FiO2 as oxygen saturations allow--> currently on 60% FiO2 PEEP of 8 -Patient has completed remdesivir -Continue Decadron through 05/21/2020 for infectious disease -Continue full anticoagulation with apixaban 5 mg twice daily -Pulmonary toilet -Appreciate pulmonary and ID consult Haemophilus influenza and strep agalactiae -Patient has completed a 7-day course of ceftriaxone Pulmonary embolism -Continue apixaban 5 mg twice daily DM-2 -Blood sugars are uncontrolled with Decadron -Lantus was already increased to 35 units twice daily today by Dr. López -Continue SSI -Consider scheduled log if blood sugars remain elevated Hyperlipidemia Continue atorvastatin Hypertension -Continue IV Lasix 40 mg daily -Continue atenolol 12.5 mg daily BPH -Rao -May need to consider Flomax or other alpha-frank prior to Rao removal PAF -Patient had been on Pradaxa this has been discontinued in favor of Eliquis at this time -Is currently in normal sinus rhythm -Continue beta-frank Morbid obesity -BMI 44.3 -Recommend weight loss -Complicates overall clinical picture DVT prophylaxis -Fully anticoagulated with Eliquis CODE STATUS -Full code
[2020-05-13] MEDS: Vital High Protein 1,000 ML 65 ML GT (15:23)
[2020-05-13 17:41] LABS: Bedside Glucose 390 mg/dL (70-110)
[2020-05-13] MEDS: Atorvastatin Calcium 20 MG Tablet GT (20:57)
[2020-05-13 23:46] LABS: Bedside Glucose 347 mg/dL (70-110)
[2020-05-13 23:50] LABS: Bedside Glucose 377 mg/dL (70-110)
[2020-05-14] VITALS (38 sets, daily range): BP systolic 93–168; BP diastolic 41–121; PULSE 46–85; RESP 11–31; TEMP 36.3–36.8; O2SAT 89–95
[2020-05-14 02:21] LABS: Bedside Glucose 398 mg/dL (70-110)
[2020-05-14] MEDS: Magnesium Hydroxide 30 ML UDC GT (02:45)
[2020-05-14] MEDS: Propofol 10MG/Ml 1,000 MG/100 ML Bottle 11.4 MG CONT INF (04:00)
[2020-05-14 04:35] LABS: Absolute Lymphocyte Count 0.64 X10^3/uL (0.83-4.51); Absolute Neutrophil Count 12.5 X10^3/uL (2.0-7.7); Basophil# 0.03 X10^3/uL; Basophil% 0.2 % (0-1); Eosinophil# 0.02 X10^3/uL; Eosinophils% 0.1 % (0-5); Hematocrit 41.9 % (40-54); Hemoglobin 13.8 g/dL (13.0-16.5); Lymphocyte # 0.64 X10^3/ul (4.0); Lymphocyte % 4.5 % (19-41); Mean Corp Hgb Conc 32.9 g/dL (32-36); Mean Corpuscular Hgb 30.3 pg (27.0-32.0); Mean Corpuscular Volume 91.9 fL (80-94); Mean Platelet Vol. 11.1 fl (6.2-12.0); Monocyte# 0.97 X10^3/uL; Monocyte% 6.8 % (0-10); NRBC Flagged by Analyzer 0 % (0-5); Neutrophil # 12.52 X10^3/uL (2.7-7.7); Neutrophil % 87.3 % (47-70); Platelet Count 123 K/mm3 (150-450); RBC Distribution Width CV 13.4 % (11.6-14.6); RBC Distribution Width SD 45.7 fl (35.1-43.9); Red Blood Count 4.56 M/mm3 (4.6-6.2); White Blood Count 14.3 K/mm3 (4.4-11.0)
[2020-05-14 04:56] LABS: ALB/GLOB Ratio 0.4 RATIO (0.9-2.4); AST(SGOT) 50 U/L (15-37); Alanine Aminotransfer ALT/SGPT 84 U/L (16-61); Albumin, Serum 1.7 g/dL (3.2-5.0); Alkaline Phosphatase 140 U/L (45-117); Anion Gap 4 (5-15); BUN 75 mg/dL (7-18); BUN/Creat Ratio 66.4 RATIO (10-20); Calcium,Total 8.3 mg/dL (8.5-10.1); Chloride 101 mmol/L (98-107); Creatinine, Serum 1.13 mg/dL (0.70-1.30); EST Glomerular Filtration Rate 68 mL/min (>60); Est Glom Filt Rate - Afr Amer 82 mL/min (>60); Estimated Creatinine Clearance 54.11 ml/min; Globulin 4.3 g/dL (2.2-4.2); Glucose 419 mg/dL (74-106); Potassium 4.7 mmol/L (3.5-5.1); Sodium Level 135 mmol/L (136-145)
--- NOTE | 2020-05-14 05:08 | NURSING ---
05/14/2020 0445: Patient self-extubated. RN at bedside. Oxygen applied to patient. Hospitalist and Respiratory called to bedside. 0510: Etomidate 20mg given 0511: Succinycholine 100mg given 0512: Size 8 ET placed, [address] Chaves
[2020-05-14] MEDS: Etomidate 20 MG/10 ML Vial IV (05:10)
--- NOTE | 2020-05-14 05:17 | RAD_ITS ---
STUDY: X-RAY CHEST REASON FOR EXAM: Male, 69 years old. COVID + -- ET AND OG TUBE PLACEMENTS TECHNIQUE: Single frontal view of the chest. COMPARISON: 05/12/2020. FINDINGS: EKG leads artifacts. Left upper extremity PICC line tip projects over the right atrium. Nasogastric tube the tip projecting over the topography of the stomach. Endotracheal tube with the tip approximately 2.3 cm superior to adonis. The heart is within normal limits in size on portable AP technique. There are low lung volumes present. Left pleural effusion. Diffuse pulmonary infiltrates. There is no pneumothorax identified. RAD/Chest 1 View (Portable) IMPRESSION: Support apparatus as above. Diffuse pulmonary infiltrates. Nonspecific however can be seen with infectious inflammatory process. Findings can be seen with an atypical viral infectious process given patient''s history. Recommend follow-up imaging to resolution. No significant change in the appearance of the lungs. Electronically Signed: Dennis Baldwin MD at 6:32 EST Tel , Service support ,
[2020-05-14] MEDS: Propofol 200 MG/20 ML Vial 20 MG IV BOLUS (05:20)
--- NOTE | 2020-05-14 05:29 | PCM.PN.BLA ---
Progress Note Endotracheal Intubation Note Indication: Acute hypoxemic respiratory failure Performed by: Dr. Sourav Chaves Patient extubated himself. He became hypoxic and despite ambu bagging he remained hypoxic. Glidescope was used and inserted into the oropharynx at which time there was a Grade 2 view of the vocal cords. An 8 -telugu endotracheal tube was inserted and visualized going through the vocal cords. The stylette was removed and cuff was inflated. Colorimetric change was visualized on the CO2 detector. Breath sounds were heard equally in both lung mark. The endotracheal tube was placed at 24 cm, measured at the lips. A STAT chest x-ray was ordered to verify endotracheal tube placement. The patient tolerated the procedure well and there were no immediate complications. STROKE Vital Signs/Narrative: Vital Signs Pulse Resp BP Pulse Ox 05/14/20 02:00 46 L 11 L 104/49 L 91 05/14/20 01:35 48 L 16 91 Procedures: [id number] Insert Emergency Airway
[2020-05-14] MEDS: Insulin Lispro 100 UNIT/ML INSULN.PEN SC ×3 (05:37→18:29)
[2020-05-14 06:46] LABS: Bedside Glucose 398 mg/dL (70-110)
--- NOTE | 2020-05-14 07:08 | PCM.PN.INT ---
Subjective: Patient did okay overnight. Unfortunately, patient self extubated at approximately 5 AM. Patient had to be immediately reintubated and has had increased oxygen requirements. Some bloody secretions have been noted after repeat intubation, but respiratory reports secretions had improved prior to acute event. Patient had also tolerated tube feeds, but has not had a bowel movement despite interventions. General: - - Intubated and sedated. RASS -2. Morbidly obese. Fair vent synchrony with intermittent coughing HEENT: Atraumatic, PERRLA, EOMI, Normocephalic, - - No scleral icterus or injection noted Oral: Moist Mucosa, No Gingival or Mucosal Lesions/ Ulcerations Neck: Supple, No JVD, No Nodes, Trachea Midline Lungs: No rhonchi, No wheeze, No rales, Diminished, - - Symmetric expansion. No dullness to percussion. Cardiovascular: Normal S1, Normal S2, No murmurs, Bradycardic, No rub noted, No Gallop Abdomen: Bowel Sounds Present, Soft, Non Tender, Non-Distended, Obese Extremities: No clubbing, No cyanosis, No edema, Capillary Refill Less than 3 Seconds Skin: No rashes, No breakdown Musculoskeletal: No Tenderness to Palpation of Joints or Extremities Lymphatic: No Cervical, Supraclavicular, or Inguinal Adenopathy Neurological: Cranial nerves II-XII grossly intact, Neuro grossly intact, - - Spontaneous movement of all extremities. Psych/Mental Status: Flat Affect, Restless Vital Signs Temp Pulse Resp BP Pulse Ox 36.6 C 64 20 H 129/70 H 93 05/14/20 04:00 05/14/20 06:50 05/14/20 06:50 05/14/20 06:00 05/14/20 06:50 Oxygen Flow Rate (L/min) 60 Oxygen Delivery Method Mechanical Ventilator Weight: 124.6 kg Body Mass Index (BMI) 42.2 Finger Stick Blood Glucose 161 Intake and Output for Last 24 Hours 05/12/20 05/13/20 05/14/20 23:59 23:59 23:59 Intake Total 494.58 / 878.38 2269.68 / 2331.29 747.08 / 747.08 Output Total 575 / 850 2425 / 2425 500 / 500 Balance -80.42 / 28.38 -155.32 / -93.71 247.08 / 247.08 Labs (Last 48 Hours) 05/12/20 05/12/20 05/12/20 04:25 17:33 19:53 WBC RBC Hgb Hct MCV MCH MCHC RDW Std Deviation RDW Coeff of Taras Plt Count MPV Immature Gran % (Auto) Neut % (Auto) Lymph % (Auto) Swisher % (Auto) Eos % (Auto) Baso % (Auto) Absolute Neuts (auto) Absolute Lymphs (auto) Nucleated RBC % Differential Comment Sodium Potassium Chloride Carbon Dioxide Anion Gap BUN Creatinine Estim Creat Clear Calc Est GFR (MDRD) Af Amer Est GFR (MDRD) Non-Af BUN/Creatinine Ratio Glucose Calcium Total Bilirubin AST ALT Alkaline Phosphatase Total Creatine Kinase 43 Total Protein Albumin Globulin Albumin/Globulin Ratio Triglycerides 69 POC Glucose 270 H 307 H 05/13/20 05/13/20 05/13/20 00:15 03:40 03:40 WBC 12.3 H RBC 4.28 L Hgb 13.2 Hct 39.9 L MCV 93.2 MCH 30.8 MCHC 33.1 RDW Std Deviation 46.7 H RDW Coeff of Taras 13.7 Plt Count 116 L MPV 10.7 Immature Gran % (Auto) 0.900 Neut % (Auto) 91.0 H Lymph % (Auto) 3.9 L Swisher % (Auto) 4.0 Eos % (Auto) 0.1 Baso % (Auto) 0.1 Absolute Neuts (auto) 11.2 H Absolute Lymphs (auto) 0.48 L Nucleated RBC % 0 Differential Comment SCANNED Sodium 134 L Potassium 4.8 Chloride 99 Carbon Dioxide 29.0 Anion Gap 6 BUN 74 H Creatinine 1.30 Estim Creat Clear Calc 47.03 Est GFR (MDRD) Af Amer 70 Est GFR (MDRD) Non-Af 58 L BUN/Creatinine Ratio 56.9 H Glucose 364 H Calcium 8.3 L Total Bilirubin 1.40 H AST 53 H ALT 78 H Alkaline Phosphatase 119 H Total Creatine Kinase Total Protein 5.7 L Albumin 1.7 L Globulin 4.0 Albumin/Globulin Ratio 0.4 L Triglycerides POC Glucose 347 H 05/13/20 05/13/20 05/13/20 05:31 10:47 17:26 WBC RBC Hgb Hct MCV MCH MCHC RDW Std Deviation RDW Coeff of Taras Plt Count MPV Immature Gran % (Auto) Neut % (Auto) Lymph % (Auto) Swisher % (Auto) Eos % (Auto) Baso % (Auto) Absolute Neuts (auto) Absolute Lymphs (auto) Nucleated RBC % Differential Comment Sodium Potassium Chloride Carbon Dioxide Anion Gap BUN Creatinine Estim Creat Clear Calc Est GFR (MDRD) Af Amer Est GFR (MDRD) Non-Af BUN/Creatinine Ratio Glucose Calcium Total Bilirubin AST ALT Alkaline Phosphatase Total Creatine Kinase Total Protein Albumin Globulin Albumin/Globulin Ratio Triglycerides POC Glucose 335 H 374 H 390 H 05/13/20 05/13/20 05/14/20 20:53 23:46 04:25 WBC 14.3 H RBC 4.56 L Hgb 13.8 Hct 41.9 MCV 91.9 MCH 30.3 MCHC 32.9 RDW Std Deviation 45.7 H RDW Coeff of Taras 13.4 Plt Count 123 L MPV 11.1 Immature Gran % (Auto) 1.100 H Neut % (Auto) 87.3 H Lymph % (Auto) 4.5 L Swisher % (Auto) 6.8 Eos % (Auto) 0.1 Baso % (Auto) 0.2 Absolute Neuts (auto) 12.5 H Absolute Lymphs (auto) 0.64 L Nucleated RBC % 0 Differential Comment Sodium Potassium Chloride Carbon Dioxide Anion Gap BUN Creatinine Estim Creat Clear Calc Est GFR (MDRD) Af Amer Est GFR (MDRD) Non-Af BUN/Creatinine Ratio Glucose Calcium Total Bilirubin AST ALT Alkaline Phosphatase Total Creatine Kinase Total Protein Albumin Globulin Albumin/Globulin Ratio Triglycerides POC Glucose 377 H 398 H 05/14/20 05/14/20 04:25 05:36 WBC RBC Hgb Hct MCV MCH MCHC RDW Std Deviation RDW Coeff of Taras Plt Count MPV Immature Gran % (Auto) Neut % (Auto) Lymph % (Auto) Swisher % (Auto) Eos % (Auto) Baso % (Auto) Absolute Neuts (auto) Absolute Lymphs (auto) Nucleated RBC % Differential Comment Sodium 135 L Potassium 4.7 Chloride 101 Carbon Dioxide 30.0 Anion Gap 4 L BUN 75 H Creatinine 1.13 Estim Creat Clear Calc 54.11 Est GFR (MDRD) Af Amer 82 Est GFR (MDRD) Non-Af 68 BUN/Creatinine Ratio 66.4 H Glucose 419 H Calcium 8.3 L Total Bilirubin 1.20 H AST 50 H ALT 84 H Alkaline Phosphatase 140 H Total Creatine Kinase Total Protein 6.0 L Albumin 1.7 L Globulin 4.3 H Albumin/Globulin Ratio 0.4 L Triglycerides POC Glucose 398 H Microbiology 05/12/20 09:40 Sputum, Induced/Lukens Gram Stain - Final 05/12/20 09:40 Sputum, Induced/Lukens Respiratory Culture - Preliminary Presumptive C albicans Clinical Impression(s) from Imaging Studies Chest X-Ray 05/14/20 05:17 IMPRESSION: Support apparatus as above. Diffuse pulmonary infiltrates. Nonspecific however can be seen with infectious inflammatory process. Findings can be seen with an atypical viral infectious process given patient''s history. Recommend follow-up imaging to resolution. No significant change in the appearance of the lungs. Electronically Signed: Dennis Baldwin MD at 6:32 EST Tel , Service support , Medical Necessity - Tobacco Use Smoking Status: Never smoker Assessment/Plan All Active Problems Hyperglycemia due to diabetes mellitus (Acute) COVID-19 (Acute) Hypoxemia (Acute) Pulmonary embolism (Acute) Sepsis (Acute) History of cholecystectomy (Resolved) Shortness of breath (Acute) RECOMMENDATIONS: 1. Wean PEEP as necessary. Continue to wean FiO2 to maintain saturations at or above 90%. 2. Continue repeat Decadron with plans to complete a 10-day treatment course. 3. Continue systemic anticoagulation with Eliquis. 4. Propofol and fentanyl for vent synchrony. 5. Titrate tube feeds to goal. Increase insulin coverage. Aggressive bowel regimen 6. Continue attempts at gentle diuresis as tolerated by hemodynamics and renal function. IMPRESSIONS: 1. Acute hypoxemic respiratory failure secondary to COVID-19 pneumonia and bilateral pulmonary emboli Patient with consistent decompensation over hospital course. Patient was on BiPAP for essentially 3 days prior to requiring intubation on 05/12/2020. Oxygenation had significantly improved immediately after intubation. However, with self extubation, the recruitment likely occurred. We will continue with ventilatory support through the day today. Slightly increased infiltrates may be secondary to decreased recruitment. Secretions have significantly improved and are only showing Shawna. This would be suggestive of retained secretions with contamination more than a superinfection. Infectious diseases following. 2. Diabetes mellitus/hypertension/hyperlipidemia/BPH/obesity/paroxysmal atrial fibrillation Complicates care, management, recovery and prognosis. Recommend complete discontinuation of Pradaxa given high risk for bleeding complications. Increase Lantus TIME: 33 minutes of critical care time spent addressing patient's acute hypoxic respiratory failure, COVID-19 pneumonia, pulmonary emboli, review of all data and collaboration with care team (6 AM to 7 AM) [id number]: [id number] Critical care first hour
--- NOTE | 2020-05-14 07:29 | PN_ITS ---
Patient Problems: Active and Suspected Problems Hyperglycemia due to diabetes mellitus (Acute) COVID-19 (Acute) Hypoxemia (Acute) Pulmonary embolism (Acute) Sepsis (Acute) Shortness of breath (Acute) Intraperitoneal bleeding (Suspected) Reason for Visit: Follow-up on respiratory failure/COVID-19 pneumonia/bilateral multiple PE Subjective: Patient was seen and examined. He extubated himself this morning. He has been re-intubated, sedated at time of exam. No other acute events overnight. Objective: Physical exam: General: Intubated and sedated HEENT: Atraumatic, PERRLA, EOMI, Normocephalic, - - No scleral icterus or injection noted Oral: Moist Mucosa, No Gingival or Mucosal Lesions/ Ulcerations, - - Some breakdown of the lip noted Neck: Supple, No JVD, No Nodes, Trachea Midline Lungs: No wheeze, No rales, Diminished, Rhonchi, - - Symmetric expansion Cardiovascular: Regular rate, Regular Rhythm, Normal S1, Normal S2, No murmurs, No rub noted, No Gallop Abdomen: Bowel Sounds Present, Soft, Non Tender, Non-Distended Extremities: No clubbing, No cyanosis, Edema - Trace to lower extremity Skin: No rashes, No breakdown Musculoskeletal: No Tenderness to Palpation of Joints or Extremities Lymphatic: No Cervical, Supraclavicular, or Inguinal Adenopathy Neurological: Cranial nerves II-XII grossly intact, Neuro grossly intact, Motor Exam 5/5 strength throughout Vitals/I&O's: Vital Signs Temp Pulse Resp BP Pulse Ox 97.8 F 64 20 H 129/70 H 93 05/14/20 04:00 05/14/20 06:50 05/14/20 06:50 05/14/20 06:00 05/14/20 06:50 Oxygen Flow Rate (L/min) 60 Oxygen Delivery Method Mechanical Ventilator Weight: 124.6 kg Body Mass Index (BMI) 42.2 Finger Stick Blood Glucose 161 Intake and Output for Last 24 Hours 05/12/20 05/13/20 05/14/20 23:59 23:59 23:59 Intake Total 494.58 / 878.38 2269.68 / 2331.29 747.08 / 747.08 Output Total 575 / 850 2425 / 2425 500 / 500 Balance -80.42 / 28.38 -155.32 / -93.71 247.08 / 247.08 Microbiology Past 72 Hours 05/12/20 09:40 Sputum, Induced/Lukens Gram Stain - Final 05/12/20 09:40 Sputum, Induced/Lukens Respiratory Culture - Preliminary Presumptive C albicans Laboratory Results 05/13/20 00:15: POC Glucose 347 H 05/13/20 10:47: POC Glucose 374 H 05/13/20 17:26: POC Glucose 390 H 05/13/20 20:53: POC Glucose 377 H 05/13/20 23:46: POC Glucose 398 H 05/14/20 04:25: WBC 14.3 H, RBC 4.56 L, Hgb 13.8, Hct 41.9, MCV 91.9, MCH 30.3, MCHC 32.9, RDW Std Deviation 45.7 H, RDW Coeff of Taras 13.4, Plt Count 123 L, MPV 11.1, Immature Gran % (Auto) 1.100 H, Neut % (Auto) 87.3 H, Lymph % (Auto) 4.5 L , [place] % (Auto) 6.8, Eos % (Auto) 0.1, Baso % (Auto) 0.2, Absolute Neuts (auto) 12.5 H, Absolute Lymphs (auto) 0.64 L, Nucleated RBC % 0 05/14/20 04:25: Sodium 135 L, Potassium 4.7, Chloride 101, Carbon Dioxide 30.0, Anion Gap 4 L, BUN 75 H, Creatinine 1.13, Estim Creat Clear Calc 54.11, Est GFR (MDRD) Af Amer 82, Est GFR (MDRD) Non-Af 68, BUN/Creatinine Ratio 66.4 H, Glucose 419 H, Calcium 8.3 L, Total Bilirubin 1.20 H, AST 50 H, ALT 84 H, Alkaline Phosphatase 140 H, Total Protein 6.0 L, Albumin 1.7 L, Globulin 4.3 H, Albumin/Globulin Ratio 0.4 L 05/14/20 05:36: POC Glucose 398 H Current Medications Acetaminophen (Acetaminophen 650 Mg/20 Ml Udc) 650 mg GT Q6H PRN PRN PRN Reason: Pain Score 1-10/Temp > 100.7 F Al Hydroxide/Mg Hydroxide (Mag Hydrox/Al Hydrox/Simeth 30 Ml Udc) 30 ml GT Q6H PRN PRN PRN Reason: Gastric Burning Albuterol Sulfate (Albuterol Ih 8.5 Gm (Proair) Inhaler (200 Puffs)) 2.5 puff INHALATION Q2H PRN PRN PRN Reason: Shortness of Breath/Wheezing Last Admin: 05/09/20 18:57 Dose: 2.5 puff Documented by: Apixaban (Apixaban 5 Mg Tablet) 5 mg GT BID [facility] Last Admin: 05/13/20 20:57 Dose: 5 mg Documented by: Atenolol (Atenolol 25 Mg Tablet) 12.5 mg GT DAILY [facility] Last Admin: 05/13/20 10:49 Dose: 12.5 mg Documented by: Atorvastatin Calcium (Atorvastatin Calcium 20 Mg Tablet) 20 mg GT QHS [facility] Last Admin: 05/13/20 20:57 Dose: 20 mg Documented by: Calamine/Phenol (Menthol/Lanolin/Calamine/Znox 113 Gm Tube) 1 applic TOPICAL TI DCM [facility]; Protocol Last Admin: 05/13/20 17:28 Dose: 1 applicatio Documented by: Chlorhexidine Gluconate (Chlorhexidine 15 Ml) 15 ml PO BID [facility] Last Admin: 05/13/20 20:54 Dose: 15 ml Documented by: Cholecalciferol (Cholecalciferol (Vit D3) 1,000 Unit (25mcg)) 1,000 unit GT BID [facility] Last Admin: 05/13/20 20:59 Dose: 1,000 unit Documented by: Cyanocobalamin (Cyanocobalamin 500 Mcg Tablet) 1,000 mcg GT DAILY [facility] Last Admin: 05/13/20 10:48 Dose: 1,000 mcg Documented by: Dexamethasone (Dexamethasone 4 Mg Tablet) 6 mg GT DAILY [facility] Stop: 05/21/20 10:01 Last Admin: 05/13/20 10:48 Dose: 6 mg Documented by: Dextrose (Dextrose 50%-Water 25 Gm/50 Ml Disp.Syrin) 0 gm IV X1 PRN; Protocol PRN Reason: Hypoglycemia Last Admin: 05/11/20 03:54 Dose: 12.5 gm Documented by: Furosemide (Furosemide 40 Mg/4 Ml Vial) 40 mg IV DAILY [facility] Last Admin: 05/13/20 10:49 Dose: 40 mg Documented by: Glucagon (Glucagon 1 Mg/Ml Syringe) 1 mg IM .X1 PRN PRN Reason: Hypoglycemia Sodium Chloride () 250 mls @ 15 mls/hr IV .[id number] PRN PRN Reason: Saline Flush Last Infusion: 05/14/20 06:00 Dose: Infused Documented by: Sodium Chloride () 250 mls @ 15 mls/hr IV .[id number] PRN PRN Reason: Additional IVPB Infusion Propofol (Diprivan) 1,000 mg in 100 mls @ 7.578 mls/hr CONT INF .Q12H [facility]; Protocol Last Titration: 05/14/20 06:30 Dose: 15 mcg/kg/min, 11.4 mls/hr Documented by: Fentanyl Citrate 1,000 mcg/ (Sodium Chloride) 100 mls @ 5 mls/hr CONT INF .Q20H [facility]; Protocol Last Titration: 05/14/20 06:45 Dose: 125 mcg/hr, 12.5 mls/hr Documented by: Enteral Nutritional Formula (Vital High Protein) 1,000 mls @ 65 mls/hr GT .[id number] [facility] Last Admin: 05/13/20 17:12 Dose: Not Given Documented by: Pantoprazole Sodium 40 mg/ (Sodium Chloride) 110 mls @ 330 mls/hr IV Q12 [facility] Last Infusion: 05/13/20 23:07 Dose: Infused Documented by: Insulin Glargine (Insulin Glargine 100 Units/Ml Pen) 65 units SC BID [facility] Insulin Human Lispro (Insulin Lispro 100 Unit/Ml Insuln.Pen) 0 unit SC Q6 [facility]; Protocol Last Admin: 05/14/20 05:37 Dose: 10 u Documented by: Magnesium Hydroxide (Magnesium Hydroxide 30 Ml Udc) 30 ml GT DAILY PRN PRN PRN Reason: Constipation Last Admin: 05/14/20 02:45 Dose: 30 ml Documented by: Melatonin (Melatonin 3 Mg Tablet) 3 mg PO QHS PRN PRN PRN Reason: INSOMNIA Last Admin: 05/11/20 21:42 Dose: 3 mg Documented by: Nitroglycerin (Nitroglycerin (Inpatient Use) 0.4 Mg Tab.Subl) 0.4 mg SUBLINGUAL Q5M PRN PRN Reason: CARDIAC/CHEST PAIN Ondansetron HCl (Ondansetron 4 Mg/2 Ml Vial) 4 mg IV Q8H PRN PRN PRN Reason: NAUSEA/VOMITING Last Admin: 05/11/20 09:14 Dose: 4 mg Documented by: Polyethylene Glycol (Polyethylene Glycol 3350 17 Gm Packet) 17 gm PO DAILY [facility] Prochlorperazine Edisylate (Prochlorperazine 10 Mg/2 Ml Vial) 5 mg IV Q4H PRN PRN PRN Reason: Breakthrough nausea/vomiting Senna/Docusate Sodium (Senna/Docusate Sodium 1 Tablet) 2 tablet GT BID [facility] Last Admin: 05/13/20 20:58 Dose: 2 tablet Documented by: Sodium Chloride (0.9% Saline Lock 10 Ml Syringe) 10 - 40 ml IV UD PRN PRN Reason: SALINE FLUSH Last Admin: 05/12/20 20:01 Dose: 10 ml Documented by: Sodium Chloride (Sodium Chloride 0.65% 1 [place].Btl) 2 spray NASAL TID PRN PRN PRN Reason: NASAL DRYNESS Last Admin: 05/06/20 21:47 Dose: 2 spray Documented by: STROKE Vital Signs/Narrative: Vital Signs Temp Pulse Resp BP Pulse Ox 05/14/20 06:50 64 20 H 93 05/14/20 06:00 68 15 129/70 H 94 05/14/20 05:30 80 21 H 168/67 H 90 05/14/20 05:15 85 14 152/84 H 89 05/14/20 05:11 82 31 H 91 05/14/20 05:00 82 12 131/121 H 92 05/14/20 04:20 72 18 92 05/14/20 04:00 97.8 F 48 L 11 L 114/49 L 90 Medical Necessity - Tobacco Use Smoking Status: Never smoker Assessment/Plan All Active Problems Hyperglycemia due to diabetes mellitus (Acute) COVID-19 (Acute) Hypoxemia (Acute) Pulmonary embolism (Acute) Sepsis (Acute) History of cholecystectomy (Resolved) Shortness of breath (Acute) 1. Acute respiratory failure secondary to COVID-19 pneumonia/bilateral PE, worsened Status post intubation on 05/12/20 Patient self extubated on 05/14/20 morning; reintubated later Continue with breathing treatments Pulmonology following 2. Acute COVID-19 pneumonia with hypoxia, with possible concomitant HCAP Sputum cultures positive for Haemophilus influenza and Streptococcus agalactiae Completed IV ceftriaxone; on Decadron Continue on Lasix IV 3. Acute bilateral PE likely secondary to #2 Continue on apixaban 4. Staph epidermidis bacteremia, likely contaminant Completed IV ceftriaxone 5. Hypertension/hyperlipidemia/paroxysmal atrial fibrillation, appears stable, complicates care Continue on atenolol, atorvastatin, losartan 6. Type II DM, blood sugars fairly uncontrolled, Lantus increased today to 65 units twice daily Continue with insulin sliding scale also 7. DVT prophylaxis?on apixaban Inpatient E&M: 34277 Subs Hosp L3
--- NOTE | 2020-05-14 09:07 | CRPHASE1 ---
Patient Communication Former Patient:: Phase I, Phase II Risk Factors/Lifestyle Laboratory Values: Cardiac Rehab Phase I Labs Triglycerides 69 mg/dL (-199) 05/12/20 04:25 Cardiac Rehabilitation Info Cardiac Rehabilitation Program Information: Cardiac Rehabilitation is important for patients like you who are recovering from a heart problem. Cardiac rehabilitation programs are recognized as integral to the continued care of the patient with coronary heart disease. The cardiac rehabilitation program is designed to optimize a patient's physical, psychological, and social functioning. Health manager care management work in cardiac rehabilitation programs and assist you with getting the treatments you need to get stronger and healthier - like exercise, healthy eating habits, and medications. Cardiac rehabilitation has been show to help people with heart problems live longer and have better life enjoyment than people who do not go to cardiac rehabilitation. Please contact the Cardiac Rehabilitation Program at [facility] at in two weeks if you have not heard from them.
[2020-05-14] MEDS: Propofol 10MG/Ml 1,000 MG/100 ML Bottle 18.7 MG CONT INF ×3 (09:09→21:43)
[2020-05-14] MEDS: Menthol/Lanolin/Calamine/Znox 113 GM Tube 1 APPLIC TOPICAL ×3 (09:53→17:39)
[2020-05-14] MEDS: Chlorhexidine 15 ML PO ×2 (11:22→21:44)
[2020-05-14] MEDS: Polyethylene Glycol 3350 17 GM PACKET PO (11:22)
[2020-05-14] MEDS: Senna/Docusate Sodium 1 Tablet 2 TABLET GT ×2 (11:23→21:42)
[2020-05-14] MEDS: APIXABAN 5 MG TABLET GT ×2 (11:23→21:43)
[2020-05-14] MEDS: dexAMETHasone 4 MG Tablet 6 MG GT (11:23)
[2020-05-14] MEDS: Furosemide 40 MG/4 ML Vial IV (11:23)
[2020-05-14] MEDS: 0.9% Saline Lock 10 ML Syringe IV (11:26)
[2020-05-14] MEDS: Cyanocobalamin 500 MCG Tablet 1000 MCG GT (12:05)
--- NOTE | 2020-05-14 12:38 | CASEMGMT ---
Social Work SW placed call to pt Louise Jason to offer support. Louise expresses appreciation for medical updates she has been getting from nursing staff. Louise states children and neighbors have been supportive of her during pt illness and hospitalization. Support provided and Louise made aware the SW will remain available should needs arise and will assist with discharge planning at appropriate time. MIKE Skinner
[2020-05-14 12:56] LABS: Bedside Glucose 241 mg/dL (70-110)
[2020-05-14] MEDS: Propofol 10MG/Ml 1,000 MG/100 ML Bottle 22.4 MG CONT INF (13:53)
[2020-05-14] MEDS: CHLORHEXIDINE GLUC 2% CLOTH 1 EACH TOWELETTE TOPICAL (14:27)
--- NOTE | 2020-05-14 14:29 | PCM.PN.ID ---
Patient Problems: Active and Suspected Problems Hyperglycemia due to diabetes mellitus (Acute) COVID-19 (Acute) Hypoxemia (Acute) Pulmonary embolism (Acute) Sepsis (Acute) Shortness of breath (Acute) Intraperitoneal bleeding (Suspected) Subjective: Self extubated and required reintubation. No fever. - Physical Exam Vitals/I&O's: Vital Signs Temp Pulse Resp BP Pulse Ox 98.0 F 55 L 16 110/46 L 94 05/14/20 12:00 05/14/20 13:50 05/14/20 13:50 05/14/20 13:45 05/14/20 13:50 Oxygen Flow Rate (L/min) 60 Oxygen Delivery Method Mechanical Ventilator Weight: 124.6 kg Body Mass Index (BMI) 42.2 Finger Stick Blood Glucose 161 Intake and Output for Last 24 Hours 05/12/20 05/13/20 05/14/20 23:59 23:59 23:59 Intake Total 494.58 / 878.38 2269.68 / 2331.29 1250.88 / 1250.88 Output Total 575 / 850 2425 / 2425 950 / 950 Balance -80.42 / 28.38 -155.32 / -93.71 300.88 / 300.88 General: No apparent distress Lungs: Diminished Cardiovascular: Regular rate, Regular Rhythm Abdomen: Soft, Non Tender, Non-Distended Skin: No rashes Microbiology Past 72 Hours 05/12/20 09:40 Sputum, Induced/Lukens Gram Stain - Final 05/12/20 09:40 Sputum, Induced/Lukens Respiratory Culture - Final Presumptive C albicans Laboratory Results 05/13/20 00:15: POC Glucose 347 H 05/13/20 17:26: POC Glucose 390 H 05/13/20 20:53: POC Glucose 377 H 05/13/20 23:46: POC Glucose 398 H 05/14/20 04:25: WBC 14.3 H, RBC 4.56 L, Hgb 13.8, Hct 41.9, MCV 91.9, MCH 30.3, MCHC 32.9, RDW Std Deviation 45.7 H, RDW Coeff of Taras 13.4, Plt Count 123 L, MPV 11.1, Immature Gran % (Auto) 1.100 H, Neut % (Auto) 87.3 H, Lymph % (Auto) 4.5 L, [place] % (Auto) 6.8, Eos % (Auto) 0.1, Baso % (Auto) 0.2, Absolute Neuts (auto) 12.5 H, Absolute Lymphs (auto) 0.64 L, Nucleated RBC % 0 05/14/20 04:25: Sodium 135 L, Potassium 4.7, Chloride 101, Carbon Dioxide 30.0, Anion Gap 4 L, BUN 75 H, Creatinine 1.13, Estim Creat Clear Calc 54.11, Est GFR (MDRD) Af Amer 82, Est GFR (MDRD) Non-Af 68, BUN/Creatinine Ratio 66.4 H, Glucose 419 H, Calcium 8.3 L, Total Bilirubin 1.20 H, AST 50 H, ALT 84 H, Alkaline Phosphatase 140 H, Total Protein 6.0 L, Albumin 1.7 L, Globulin 4.3 H, Albumin/Globulin Ratio 0.4 L 05/14/20 05:36: POC Glucose 398 H 05/14/20 12:46: POC Glucose 241 H Current Medications Acetaminophen (Acetaminophen 650 Mg/20 Ml Udc) 650 mg GT Q6H PRN PRN PRN Reason: Pain Score 1-10/Temp > 100.7 F Al Hydroxide/Mg Hydroxide (Mag Hydrox/Al Hydrox/Simeth 30 Ml Udc) 30 ml GT Q6H PRN PRN PRN Reason: Gastric Burning Albuterol Sulfate (Albuterol Ih 8.5 Gm (Proair) Inhaler (200 Puffs)) 2.5 puff INHALATION Q2H PRN PRN PRN Reason: Shortness of Breath/Wheezing Last Admin: 05/09/20 18:57 Dose: 2.5 puff Documented by: Apixaban (Apixaban 5 Mg Tablet) 5 mg GT BID [facility] Last Admin: 05/14/20 11:23 Dose: 5 mg Documented by: Atorvastatin Calcium (Atorvastatin Calcium 20 Mg Tablet) 20 mg GT QHS [facility] Last Admin: 05/13/20 20:57 Dose: 20 mg Documented by: Calamine/Phenol (Menthol/Lanolin/Calamine/Znox 113 Gm Tube) 1 applic TOPICAL TIDCM [facility]; Protocol Last Admin: 05/14/20 12:30 Dose: 1 applicatio Documented by: Chlorhexidine Gluconate (Chlorhexidine 15 Ml) 15 ml PO BID [facility] Last Admin: 05/14/20 11:22 Dose: 15 ml Documented by: Chlorhexidine Gluconate (Chlorhexidine Gluc 2% Cloth 1 Each [place]) 1 each TOPICAL DAILY [facility] Last Admin: 05/14/20 14:27 Dose: 1 each Documented by: Cholecalciferol (Cholecalciferol (Vit D3) 1,000 Unit (25mcg)) 1,000 unit GT BID [facility] Last Admin: 05/14/20 11:23 Dose: 1,000 unit Documented by: Cyanocobalamin (Cyanocobalamin 500 Mcg Tablet) 1,000 mcg GT DAILY [facility] Last Admin: 05/14/20 12:05 Dose: 1,000 mcg Documented by: Dexamethasone (Dexamethasone 4 Mg Tablet) 6 mg GT DAILY [facility] Stop: 05/21/20 10:01 Last Admin: 05/14/20 11:23 Dose: 6 mg Documented by: Dextrose (Dextrose 50%-Water 25 Gm/50 Ml Disp.Syrin) 0 gm IV X1 PRN; Protocol PRN Reason: Hypoglycemia Last Admin: 05/11/20 03:54 Dose: 12.5 gm Documented by: Furosemide (Furosemide 40 Mg/4 Ml Vial) 40 mg IV DAILY [facility]ERTH[facility] Last Admin: 05/14/20 11:23 Dose: 40 mg Documented by: Glucagon (Glucagon 1 Mg/Ml Syringe) 1 mg IM .X1 PRN PRN Reason: Hypoglycemia Sodium Chloride () 250 mls @ 15 mls/hr IV .[id number] PRN PRN Reason: Saline Flush Last Infusion: 05/14/20 06:00 Dose: Infused Documented by: Sodium Chloride () 250 mls @ 15 mls/hr IV .[id number] PRN PRN Reason: Additional IVPB Infusion Propofol (Diprivan) 1,000 mg in 100 mls @ 7.476 mls/hr CONT INF .Q12H [facility]; Protocol Last Admin: 05/14/20 13:53 Dose: 30 mcg/kg/min, 22.4 mls/hr Documented by: Fentanyl Citrate 1,000 mcg/ (Sodium Chloride) 100 mls @ 5 mls/hr CONT INF .Q20H [facility]; Protocol Last Titration: 05/14/20 13:55 Dose: 175 mcg/hr, 17.5 mls/hr Documented by: Enteral Nutritional Formula (Vital High Protein) 1,000 mls @ 65 mls/hr GT .[id number] [facility] Last Admin: 05/13/20 17:12 Dose: Not Given Documented by: Pantoprazole Sodium 40 mg/ (Sodium Chloride) 110 mls @ 330 mls/hr IV Q12 [facility] Last Infusion: 05/14/20 10:58 Dose: Infused Documented by: Insulin Glargine (Insulin Glargine 100 Units/Ml Pen) 65 units SC BID [facility] Last Admin: 05/14/20 11:24 Dose: 65 u Documented by: Insulin Human Lispro (Insulin Lispro 100 Unit/Ml Insuln.Pen) 0 unit SC Q6 [facility]; Protocol Last Admin: 05/14/20 12:47 Dose: 4 u Documented by: Magnesium Hydroxide (Magnesium Hydroxide 30 Ml Udc) 30 ml GT DAILY PRN PRN PRN Reason: Constipation Last Admin: 05/14/20 02:45 Dose: 30 ml Documented by: Melatonin (Melatonin 3 Mg Tablet) 3 mg PO QHS PRN PRN PRN Reason: INSOMNIA Last Admin: 05/11/20 21:42 Dose: 3 mg Documented by: Nitroglycerin (Nitroglycerin (Inpatient Use) 0.4 Mg Tab.Subl) 0.4 mg SUBLINGUAL Q5M PRN PRN Reason: CARDIAC/CHEST PAIN Ondansetron HCl (Ondansetron 4 Mg/2 Ml Vial) 4 mg IV Q8H PRN PRN PRN Reason: NAUSEA/VOMITING Last Admin: 05/11/20 09:14 Dose: 4 mg Documented by: Polyethylene Glycol (Polyethylene Glycol 3350 17 Gm Packet) 17 gm PO DAILY [facility] Last Admin: 05/14/20 11:22 Dose: 17 gm Documented by: Prochlorperazine Edisylate (Prochlorperazine 10 Mg/2 Ml Vial) 5 mg IV Q4H PRN PRN PRN Reason: Breakthrough nausea/vomiting Senna/Docusate Sodium (Senna/Docusate Sodium 1 Tablet) 2 tablet GT BID [facility] Last Admin: 05/14/20 11:23 Dose: 2 tablet Documented by: Sodium Chloride (0.9% Saline Lock 10 Ml Syringe) 10 - 40 ml IV UD PRN PRN Reason: SALINE FLUSH Last Admin: 05/14/20 11:26 Dose: 10 ml Documented by: Sodium Chloride (Sodium Chloride 0.65% [address].Btl) 2 spray NASAL TID PRN PRN PRN Reason: NASAL DRYNESS Last Admin: 05/06/20 21:47 Dose: 2 spray Documented by: Medical Necessity - Tobacco Use Smoking Status: Never smoker Route of nutrition/ use of supplements: [] Nutritional Intake: [] IV Site: [] Rao Catheter: [] - Assessment/Plan Antibiotics: [] Assessment/Plan: [] Active and Suspected Problems Hyperglycemia due to diabetes mellitus (Acute) COVID-19 (Acute) Hypoxemia (Acute) Pulmonary embolism (Acute) Sepsis (Acute) Shortness of breath (Acute) Intraperitoneal bleeding (Suspected) covid with hypoxia and PEs - sx started 04/23, (+) covid as an outpt. On dex, anticoagulation, and completed remdesivir. 1 of 2 bcx with CoNS, consistent with contaminant. Sputum with haemophilus and strep, treated with 7 days of ceftriaxone. Now intubated /3, sputum cx neg so far. O2 improved. Extended course of dex. Will follow, d/w nursing
[2020-05-14 18:35] LABS: Bedside Glucose 380 mg/dL (70-110)
[2020-05-14] MEDS: Atorvastatin Calcium 20 MG Tablet GT (21:42)
[2020-05-14] MEDS: Vital High Protein 1,000 ML 65 ML GT (21:44)
[2020-05-15] VITALS (37 sets, daily range): BP systolic 94–143; BP diastolic 45–70; PULSE 52–91; RESP 12–19; TEMP 36.2–37.3; O2SAT 88–94
[2020-05-15 00:01] LABS: Bedside Glucose 370 mg/dL (70-110)
[2020-05-15] MEDS: Insulin Lispro 100 UNIT/ML INSULN.PEN SC ×5 (00:07→23:31)
[2020-05-15 01:31] LABS: Bedside Glucose 320 mg/dL (70-110)
[2020-05-15] MEDS: Propofol 10MG/Ml 1,000 MG/100 ML Bottle 18.7 MG CONT INF (02:45)
[2020-05-15 04:45] LABS: Absolute Lymphocyte Count 0.66 X10^3/uL (0.83-4.51); Absolute Neutrophil Count 10.7 X10^3/uL (2.0-7.7); Basophil# 0.01 X10^3/uL; Basophil% 0.1 % (0-1); Eosinophils% 0.8 % (0-5); Hematocrit 39.6 % (40-54); Hemoglobin 13.2 g/dL (13.0-16.5); Lymphocyte # 0.66 X10^3/ul (4.0); Lymphocyte % 5.4 % (19-41); Mean Corp Hgb Conc 33.3 g/dL (32-36); Mean Corpuscular Hgb 31.2 pg (27.0-32.0); Mean Corpuscular Volume 93.6 fL (80-94); Monocyte# 0.78 X10^3/uL; Monocyte% 6.3 % (0-10); NRBC Flagged by Analyzer 0 % (0-5); Neutrophil # 10.65 X10^3/uL (2.7-7.7); Neutrophil % 86.3 % (47-70); POSITIVE COUNT YES; Platelet Count 90 K/mm3 (150-450); RBC Distribution Width CV 13.7 % (11.6-14.6); RBC Distribution Width SD 46.5 fl (35.1-43.9); Red Blood Count 4.23 M/mm3 (4.6-6.2); White Blood Count 12.3 K/mm3 (4.4-11.0)
[2020-05-15 04:46] LABS: Differential Indicated SCAN CRITERIA MET
[2020-05-15 05:05] LABS: Differential Comment SCANNED; Platelet Estimate SLT DEC (ADEQ)
[2020-05-15] MEDS: Propofol 10MG/Ml 1,000 MG/100 ML Bottle 19 MG CONT INF ×5 (05:20→23:00)
[2020-05-15] MEDS: TITRATION PARAMETER CHANGE 1 EACH IV (05:29)
[2020-05-15 05:47] LABS: ALB/GLOB Ratio 0.4 RATIO (0.9-2.4); AST(SGOT) 66 U/L (15-37); Alanine Aminotransfer ALT/SGPT 93 U/L (16-61); Albumin, Serum 1.5 g/dL (3.2-5.0); Alkaline Phosphatase 146 U/L (45-117); Anion Gap 3 (5-15); BUN 71 mg/dL (7-18); BUN/Creat Ratio 77.1 RATIO (10-20); Calcium,Total 7.6 mg/dL (8.5-10.1); Chloride 101 mmol/L (98-107); Creatinine, Serum 0.92 mg/dL (0.70-1.30); EST Glomerular Filtration Rate 86 mL/min (>60); Est Glom Filt Rate - Afr Amer 104 mL/min (>60); Estimated Creatinine Clearance 66.46 ml/min; Globulin 3.9 g/dL (2.2-4.2); Glucose 356 mg/dL (74-106); Magnesium 2.9 mg/dL (1.6-2.6); Phosphorus 3.2 mg/dL (2.5-4.9); Potassium 4.8 mmol/L (3.5-5.1); Protein, Total 5.4 g/dL (6.4-8.2); Sodium Level 135 mmol/L (136-145)
[2020-05-15] MEDS: Magnesium Hydroxide 30 ML UDC GT (05:54)
[2020-05-15] MEDS: Insulin Lispro 100 UNIT/ML INSULN.PEN 20 UNIT SC (06:47)
[2020-05-15 06:55] LABS: Bedside Glucose 306 mg/dL (70-110)
--- NOTE | 2020-05-15 07:45 | PCM.PN.INT ---
Subjective: Patient did okay overnight. Patient has had elevated glucoses despite elevated Lantus. Patient's oxygenation has remained relatively stable. However, patient is reportedly developing bloody secretions with occasional mucus plugging. Patient also noted to have maroon stools. No hemodynamic instability was reported. General: - - Intubated and sedated. RASS -2. Opens eyes to voice briefly. HEENT: Atraumatic, PERRLA, EOMI, Normocephalic, - - Scleral injection without icterus Oral: Moist Mucosa, No Gingival or Mucosal Lesions/ Ulcerations Neck: Supple, No JVD, No Nodes, Trachea Midline Lungs: No rhonchi, No wheeze, No rales, Diminished, - - Decreased breath sounds left lower lobe Cardiovascular: Normal S1, Normal S2, No murmurs, Irregular Rate, No rub noted, No Gallop, - - Intermittent nonsustained V. tach noted Abdomen: Soft, Non Tender, Hyperactive Bowel Sounds, Distended - Slightly Extremities: No clubbing, No cyanosis, Edema Skin: - - No change from previous Musculoskeletal: No Tenderness to Palpation of Joints or Extremities, No Muscle Wasting Lymphatic: No Cervical, Supraclavicular, or Inguinal Adenopathy Neurological: Cranial nerves II-XII grossly intact, Neuro grossly intact, Motor Exam 5/5 strength throughout Psych/Mental Status: Flat Affect Vital Signs Temp Pulse Resp BP Pulse Ox 36.4 C L 71 13 139/47 H 91 05/15/20 04:00 05/15/20 06:00 05/15/20 06:00 05/15/20 06:00 05/15/20 06:00 Oxygen Flow Rate (L/min) 60 Oxygen Delivery Method Mechanical Ventilator Weight: 126.4 kg Body Mass Index (BMI) 42.2 Finger Stick Blood Glucose 161 Intake and Output for Last 24 Hours 05/13/20 05/14/20 05/15/20 23:59 23:59 23:59 Intake Total 2269.68 / 2331.29 1782.28 / 2842.48 1719.76 / 1719.76 Output Total 2425 / 2425 1750 / 2150 850 / 850 Balance -155.32 / -93.71 32.28 / 692.48 869.76 / 869.76 Labs (Last 48 Hours) 05/13/20 05/13/20 05/13/20 00:15 10:47 17:26 WBC RBC Hgb Hct MCV MCH MCHC RDW Std Deviation RDW Coeff of Taras Plt Count MPV Immature Gran % (Auto) Neut % (Auto) Lymph % (Auto) [place] % (Auto) Eos % (Auto) Baso % (Auto) Absolute Neuts (auto) Absolute Lymphs (auto) Nucleated RBC % Differential Comment Platelet Estimate Sodium Potassium Chloride Carbon Dioxide Anion Gap BUN Creatinine Estim Creat Clear Calc Est GFR (MDRD) Af Amer Est GFR (MDRD) Non-Af BUN/Creatinine Ratio Glucose Calcium Phosphorus Magnesium Total Bilirubin AST ALT Alkaline Phosphatase Total Protein Albumin Globulin Albumin/Globulin Ratio POC Glucose 347 H 374 H 390 H 05/13/20 05/13/20 05/14/20 20:53 23:46 04:25 WBC 14.3 H RBC 4.56 L Hgb 13.8 Hct 41.9 MCV 91.9 MCH 30.3 MCHC 32.9 RDW Std Deviation 45.7 H RDW Coeff of Taras 13.4 Plt Count 123 L MPV 11.1 Immature Gran % (Auto) 1.100 H Neut % (Auto) 87.3 H Lymph % (Auto) 4.5 L [place] % (Auto) 6.8 Eos % (Auto) 0.1 Baso % (Auto) 0.2 Absolute Neuts (auto) 12.5 H Absolute Lymphs (auto) 0.64 L Nucleated RBC % 0 Differential Comment Platelet Estimate Sodium Potassium Chloride Carbon Dioxide Anion Gap BUN Creatinine Estim Creat Clear Calc Est GFR (MDRD) Af Amer Est GFR (MDRD) Non-Af BUN/Creatinine Ratio Glucose Calcium Phosphorus Magnesium Total Bilirubin AST ALT Alkaline Phosphatase Total Protein Albumin Globulin Albumin/Globulin Ratio POC Glucose 377 H 398 H 05/14/20 05/14/20 05/14/20 04:25 05:36 12:46 WBC RBC Hgb Hct MCV MCH MCHC RDW Std Deviation RDW Coeff of Taras Plt Count MPV Immature Gran % (Auto) Neut % (Auto) Lymph % (Auto) [place] % (Auto) Eos % (Auto) Baso % (Auto) Absolute Neuts (auto) Absolute Lymphs (auto) Nucleated RBC % Differential Comment Platelet Estimate Sodium 135 L Potassium 4.7 Chloride 101 Carbon Dioxide 30.0 Anion Gap 4 L BUN 75 H Creatinine 1.13 Estim Creat Clear Calc 54.11 Est GFR (MDRD) Af Amer 82 Est GFR (MDRD) Non-Af 68 BUN/Creatinine Ratio 66.4 H Glucose 419 H Calcium 8.3 L Phosphorus Magnesium Total Bilirubin 1.20 H AST 50 H ALT 84 H Alkaline Phosphatase 140 H Total Protein 6.0 L Albumin 1.7 L Globulin 4.3 H Albumin/Globulin Ratio 0.4 L POC Glucose 398 H 241 H 05/14/20 05/14/20 05/15/20 18:17 21:40 00:04 WBC RBC Hgb Hct MCV MCH MCHC RDW Std Deviation RDW Coeff of Taras Plt Count MPV Immature Gran % (Auto) Neut % (Auto) Lymph % (Auto) [place] % (Auto) Eos % (Auto) Baso % (Auto) Absolute Neuts (auto) Absolute Lymphs (auto) Nucleated RBC % Differential Comment Platelet Estimate Sodium Potassium Chloride Carbon Dioxide Anion Gap BUN Creatinine Estim Creat Clear Calc Est GFR (MDRD) Af Amer Est GFR (MDRD) Non-Af BUN/Creatinine Ratio Glucose Calcium Phosphorus Magnesium Total Bilirubin AST ALT Alkaline Phosphatase Total Protein Albumin Globulin Albumin/Globulin Ratio POC Glucose 380 H 370 H 320 H 05/15/20 05/15/20 05/15/20 04:29 04:29 04:29 WBC 12.3 H RBC 4.23 L Hgb 13.2 Hct 39.6 L MCV 93.6 MCH 31.2 MCHC 33.3 RDW Std Deviation 46.5 H RDW Coeff of Taras 13.7 Plt Count 90 L MPV 11.0 Immature Gran % (Auto) 1.100 H Neut % (Auto) 86.3 H Lymph % (Auto) 5.4 L [place] % (Auto) 6.3 Eos % (Auto) 0.8 Baso % (Auto) 0.1 Absolute Neuts (auto) 10.7 H Absolute Lymphs (auto) 0.66 L Nucleated RBC % 0 Differential Comment SCANNED Platelet Estimate SLT DEC Sodium 135 L Potassium 4.8 Chloride 101 Carbon Dioxide 31.0 Anion Gap 3 L BUN 71 H Creatinine 0.92 Estim Creat Clear Calc 66.46 Est GFR (MDRD) Af Amer 104 Est GFR (MDRD) Non-Af 86 BUN/Creatinine Ratio 77.1 H Glucose 356 H Calcium 7.6 L Phosphorus 3.2 Cancelled Magnesium 2.9 H Cancelled Total Bilirubin 1.20 H AST 66 H ALT 93 H Alkaline Phosphatase 146 H Total Protein 5.4 L Albumin 1.5 L Globulin 3.9 Albumin/Globulin Ratio 0.4 L POC Glucose 05/15/20 05:52 WBC RBC Hgb Hct MCV MCH MCHC RDW Std Deviation RDW Coeff of Taras Plt Count MPV Immature Gran % (Auto) Neut % (Auto) Lymph % (Auto) [place] % (Auto) Eos % (Auto) Baso % (Auto) Absolute Neuts (auto) Absolute Lymphs (auto) Nucleated RBC % Differential Comment Platelet Estimate Sodium Potassium Chloride Carbon Dioxide Anion Gap BUN Creatinine Estim Creat Clear Calc Est GFR (MDRD) Af Amer Est GFR (MDRD) Non-Af BUN/Creatinine Ratio Glucose Calcium Phosphorus Magnesium Total Bilirubin AST ALT Alkaline Phosphatase Total Protein Albumin Globulin Albumin/Globulin Ratio POC Glucose 306 H Microbiology 05/15/20 06:15 Stool Stool Occult Blood (GERMÁN) - Final Occult Blood Positive 05/12/20 09:40 Sputum, Induced/Lukens Gram Stain - Final 05/12/20 09:40 Sputum, Induced/Lukens Respiratory Culture - Final Presumptive C albicans Medical Necessity - Tobacco Use Smoking Status: Never smoker Assessment/Plan All Active Problems Hyperglycemia due to diabetes mellitus (Acute) COVID-19 (Acute) Hypoxemia (Acute) Pulmonary embolism (Acute) Sepsis (Acute) History of cholecystectomy (Resolved) Shortness of breath (Acute) RECOMMENDATIONS: 1. Wean PEEP as necessary. Continue to wean FiO2 to maintain saturations at or above 90%. 2. Continue repeat Decadron with plans to complete a 10-day treatment course. 3. Discontinue Eliquis given bleeding 4. Propofol and fentanyl for vent synchrony. 5. Continue tube feeds to goal. Increase insulin coverage. Aggressive bowel regimen 6. Continue attempts at gentle diuresis as tolerated by hemodynamics and renal function. IMPRESSIONS: 1. Acute hypoxemic respiratory failure secondary to COVID-19 pneumonia and bilateral pulmonary emboli Patient with consistent decompensation over hospital course. Patient was on BiPAP for essentially 3 days prior to requiring intubation on 05/12/2020. Oxygenation had significantly improved immediately after intubation. Patient appears to have stabilized from a respiratory standpoint outside of increased issues with plugging. This may be secondary to hemoptysis. Eliquis has been discontinued. 2. Diabetes mellitus/hypertension/hyperlipidemia/BPH/obesity/paroxysmal atrial fibrillation Complicates care, management, recovery and prognosis. Recommend complete discontinuation of Pradaxa given high risk for bleeding complications. Increase Lantus 3. Melanotic stools/hemoptysis Will have to hold anticoagulation for now. Possibly start heparin drip if bleeding persists. ROSE globin remained stable. There is no indication for transfusion at this time. TIME: 33 minutes of critical care time spent addressing patient's acute hypoxic respiratory failure, COVID-19 pneumonia, pulmonary emboli, review of all data and collaboration with care team (6:30 AM to 7:50 AM) [id number] Critical care first hour
--- NOTE | 2020-05-15 07:55 | PN_ITS ---
Patient Problems: Active and Suspected Problems Hyperglycemia due to diabetes mellitus (Acute) COVID-19 (Acute) Hypoxemia (Acute) Pulmonary embolism (Acute) Sepsis (Acute) Shortness of breath (Acute) Intraperitoneal bleeding (Suspected) Reason for Visit: Follow-up on respiratory failure/COVID-19 pneumonia/bilateral multiple PE Subjective: Patient was seen and examined. He developed maroon-colored stools. Off Lovenox, on pantoprazole IV. No other acute events overnight. Objective: Physical exam: General: Intubated and sedated HEENT: Atraumatic, PERRLA, EOMI, Normocephalic, - - No scleral icterus or injection noted Oral: Moist Mucosa, No Gingival or Mucosal Lesions/ Ulcerations, - - Some breakdown of the lip noted Neck: Supple, No JVD, No Nodes, Trachea Midline Lungs: No wheeze, No rales, Diminished, Rhonchi, - - Symmetric expansion Cardiovascular: Regular rate, Regular Rhythm, Normal S1, Normal S2, No murmurs, No rub noted, No Gallop Abdomen: Bowel Sounds Present, Soft, Non Tender, Non-Distended Extremities: No clubbing, No cyanosis, Edema - Trace to lower extremity Skin: No rashes, No breakdown Musculoskeletal: No Tenderness to Palpation of Joints or Extremities Lymphatic: No Cervical, Supraclavicular, or Inguinal Adenopathy Neurological: Cranial nerves II-XII grossly intact, Neuro grossly intact, Motor Exam 5/5 strength throughout Vitals/I&O's: Vital Signs Temp Pulse Resp BP Pulse Ox 97.5 F L 71 13 139/47 H 91 05/15/20 04:00 05/15/20 06:00 05/15/20 06:00 05/15/20 06:00 05/15/20 06:00 Oxygen Flow Rate (L/min) 60 Oxygen Delivery Method Mechanical Ventilator Weight: 126.4 kg Body Mass Index (BMI) 42.2 Finger Stick Blood Glucose 161 Intake and Output for Last 24 Hours 05/13/20 05/14/20 05/15/20 23:59 23:59 23:59 Intake Total 2269.68 / 2331.29 1782.28 / 2842.48 1719.76 / 1719.76 Output Total 2425 / 2425 1750 / 2150 850 / 850 Balance -155.32 / -93.71 32.28 / 692.48 869.76 / 869.76 Microbiology Past 72 Hours 05/15/20 06:15 Stool Stool Occult Blood (GERMÁN) - Final Occult Blood Positive 05/12/20 09:40 Sputum, Induced/Lukens Gram Stain - Final 05/12/20 09:40 Sputum, Induced/Lukens Respiratory Culture - Final Presumptive C albicans Laboratory Results 05/14/20 12:46: POC Glucose 241 H 05/14/20 18:17: POC Glucose 380 H 05/14/20 21:40: POC Glucose 370 H 05/15/20 00:04: POC Glucose 320 H 05/15/20 04:29: WBC 12.3 H, RBC 4.23 L, Hgb 13.2, Hct 39.6 L, MCV 93.6, MCH 31.2, MCHC 33.3, RDW Std Deviation 46.5 H, RDW Coeff of Taras 13.7, Plt Count 90 L , MPV 11.0, Immature Gran % (Auto) 1.100 H, Neut % (Auto) 86.3 H, Lymph % (Auto) 5.4 L, [place] % (Auto) 6.3, Eos % (Auto) 0.8, Baso % (Auto) 0.1, Absolute Neuts (auto) 10.7 H, Absolute Lymphs (auto) 0.66 L, Nucleated RBC % 0, Differential Comment SCANNED, Platelet Estimate SLT 05/15/20 04:29: Sodium 135 L, Potassium 4.8, Chloride 101, Carbon Dioxide 31.0, Anion Gap 3 L, BUN 71 H, Creatinine 0.92, Estim Creat Clear Calc 66.46, Est GFR (MDRD) Af Amer 104, Est GFR (MDRD) Non-Af 86, BUN/Creatinine Ratio 77.1 H, Glucose 356 H, Calcium 7.6 L, Phosphorus 3.2, Magnesium 2.9 H, Total Bilirubin 1.20 H, AST 66 H, ALT 93 H, Alkaline Phosphatase 146 H, Total Protein 5.4 L, Albumin 1.5 L, Globulin 3.9, Albumin/Globulin Ratio 0.4 L 05/15/20 04:29: Phosphorus Cancelled, Magnesium Cancelled 05/15/20 05:52: POC Glucose 306 H Current Medications Acetaminophen (Acetaminophen 650 Mg/20 Ml Udc) 650 mg GT Q6H PRN PRN PRN Reason: Pain Score 1-10/Temp > 100.7 F Al Hydroxide/Mg Hydroxide (Mag Hydrox/Al Hydrox/Simeth 30 Ml Udc) 30 ml GT Q6H PRN PRN PRN Reason: Gastric Burning Albuterol Sulfate (Albuterol Ih 8.5 Gm (Proair) Inhaler (200 Puffs)) 2.5 puff INHALATION Q2H PRN PRN PRN Reason: Shortness of Breath/Wheezing Last Admin: 05/09/20 18:57 Dose: 2.5 puff Documented by: Atorvastatin Calcium (Atorvastatin Calcium 20 Mg Tablet) 20 mg GT QHS [facility] Last Admin: 05/14/20 21:42 Dose: 20 mg Documented by: Calamine/Phenol (Menthol/Lanolin/Calamine/Znox 113 Gm Tube) 1 applic TOPICAL TIDCM [facility]; Protocol Last Admin: 05/14/20 17:39 Dose: 1 applicatio Documented by: Chlorhexidine Gluconate (Chlorhexidine 15 Ml) 15 ml PO BID [facility] Last Admin: 05/14/20 21:44 Dose: 15 ml Documented by: Chlorhexidine Gluconate (Chlorhexidine Gluc 2% Cloth 1 Each Towelette) 1 each TOPICAL DAILY [facility] Last Admin: 05/14/20 14:27 Dose: 1 each Documented by: Cholecalciferol (Cholecalciferol (Vit D3) 1,000 Unit (25mcg)) 1,000 unit GT BID [facility] Last Admin: 05/14/20 21:43 Dose: 1,000 unit Documented by: Cyanocobalamin (Cyanocobalamin 500 Mcg Tablet) 1,000 mcg GT DAILY [facility] Last Admin: 05/14/20 12:05 Dose: 1,000 mcg Documented by: Dexamethasone (Dexamethasone 4 Mg Tablet) 6 mg GT DAILY [facility] Stop: 05/21/20 10:01 Last Admin: 05/14/20 11:23 Dose: 6 mg Documented by: Dextrose (Dextrose 50%-Water 25 Gm/50 Ml Disp.Syrin) 0 gm IV X1 PRN; Protocol PRN Reason: Hypoglycemia Last Admin: 05/11/20 03:54 Dose: 12.5 gm Documented by: Furosemide (Furosemide 40 Mg/4 Ml Vial) 40 mg IV DAILY [facility] Last Admin: 05/14/20 11:23 Dose: 40 mg Documented by: Glucagon (Glucagon 1 Mg/Ml Syringe) 1 mg IM .X1 PRN PRN Reason: Hypoglycemia Sodium Chloride () 250 mls @ 15 mls/hr IV .[id number] PRN PRN Reason: Saline Flush Last Admin: 05/14/20 14:41 Dose: 15 mls/hr Documented by: Sodium Chloride () 250 mls @ 15 mls/hr IV .[id number] PRN PRN Reason: Additional IVPB Infusion Propofol (Diprivan) 1,000 mg in 100 mls @ 7.584 mls/hr CONT INF .Q12H [facility]; Protocol Last Titration: 05/15/20 06:00 Dose: 15 mcg/kg/min, 11.4 mls/hr Documented by: Fentanyl Citrate 1,000 mcg/ (Sodium Chloride) 100 mls @ 5 mls/hr CONT INF .Q20H [facility]; Protocol Last Titration: 05/15/20 06:00 Dose: 175 mcg/hr, 17.5 mls/hr Documented by: Enteral Nutritional Formula (Vital High Protein) 1,000 mls @ 65 mls/hr GT .[id number] [facility] Last Admin: 05/14/20 21:44 Dose: 65 mls/hr Documented by: Pantoprazole Sodium 40 mg/ (Sodium Chloride) 110 mls @ 330 mls/hr IV Q12 [facility] Last Infusion: 05/14/20 22:50 Dose: Infused Documented by: Insulin Glargine (Insulin Glargine 100 Units/Ml Pen) 100 units SC BID [facility] Insulin Human Lispro (Insulin Lispro 100 Unit/Ml Insuln.Pen) 0 unit SC Q6 [facility]; Protocol Last Admin: 05/15/20 05:53 Dose: 6 u Documented by: Magnesium Hydroxide (Magnesium Hydroxide 30 Ml Udc) 30 ml GT DAILY PRN PRN PRN Reason: Constipation Last Admin: 05/15/20 05:54 Dose: 30 ml Documented by: Melatonin (Melatonin 3 Mg Tablet) 3 mg PO QHS PRN PRN PRN Reason: INSOMNIA Last Admin: 05/11/20 21:42 Dose: 3 mg Documented by: Nitroglycerin (Nitroglycerin (Inpatient Use) 0.4 Mg Tab.Subl) 0.4 mg SUBLINGUAL Q5M PRN PRN Reason: CARDIAC/CHEST PAIN Ondansetron HCl (Ondansetron 4 Mg/2 Ml Vial) 4 mg IV Q8H PRN PRN PRN Reason: NAUSEA/VOMITING Last Admin: 05/11/20 09:14 Dose: 4 mg Documented by: Polyethylene Glycol (Polyethylene Glycol 3350 17 Gm Packet) 17 gm PO DAILY [facility] Last Admin: 05/14/20 11:22 Dose: 17 gm Documented by: Prochlorperazine Edisylate (Prochlorperazine 10 Mg/2 Ml Vial) 5 mg IV Q4H PRN PRN PRN Reason: Breakthrough nausea/vomiting Senna/Docusate Sodium (Senna/Docusate Sodium 1 Tablet) 2 tablet GT BID [facility] Last Admin: 05/14/20 21:42 Dose: 2 tablet Documented by: Sodium Chloride (0.9% Saline Lock 10 Ml Syringe) 10 - 40 ml IV UD PRN PRN Reason: SALINE FLUSH Last Admin: 05/14/20 11:26 Dose: 10 ml Documented by: Sodium Chloride (Sodium Chloride 0.65% 1 [place].Btl) 2 spray NASAL TID PRN PRN PRN Reason: NASAL DRYNESS Last Admin: 05/06/20 21:47 Dose: 2 spray Documented by: STROKE Vital Signs/Narrative: Vital Signs Temp Pulse Resp BP Pulse Ox 05/15/20 06:00 71 13 139/47 H 91 05/15/20 05:00 66 13 129/51 H 91 05/15/20 04:56 66 15 91 05/15/20 04:00 97.5 F L 60 13 108/70 93 Medical Necessity - Tobacco Use Smoking Status: Never smoker Assessment/Plan All Active Problems Hyperglycemia due to diabetes mellitus (Acute) COVID-19 (Acute) Hypoxemia (Acute) Pulmonary embolism (Acute) Sepsis (Acute) History of cholecystectomy (Resolved) Shortness of breath (Acute) 1. Acute respiratory failure secondary to COVID-19 pneumonia/bilateral PE, worsened Status post intubation on 05/12/20 Patient self extubated on 05/14/20 morning; reintubated later Continue with breathing treatments Pulmonology following 2. Acute COVID-19 pneumonia with hypoxia, with possible concomitant HCAP Sputum cultures positive for Haemophilus influenza and Streptococcus agalactiae Completed 7 days of IV ceftriaxone; on extended Decadron Continue on Lasix IV 3. Acute GI bleed, off Eliquis, on IV PPI 4. Acute bilateral PE likely secondary to #2 Off Apixaban 5. Staph epidermidis bacteremia, likely contaminant Completed IV ceftriaxone 6. Hypertension/hyperlipidemia/paroxysmal atrial fibrillation, appears stable, complicates care Continue on atenolol, atorvastatin, losartan 7. Type II DM, blood sugars fairly uncontrolled, Lantus increased today to 100 units BID Continue with insulin sliding scale also 8. DVT prophylaxis?off apixaban Inpatient E&M: 54223 Subs Hosp L3
[2020-05-15] MEDS: Furosemide 40 MG/4 ML Vial IV (08:33)
[2020-05-15] MEDS: Senna/Docusate Sodium 1 Tablet 2 TABLET GT ×2 (08:33→21:00)
[2020-05-15] MEDS: dexAMETHasone 4 MG Tablet 6 MG GT (08:33)
[2020-05-15] MEDS: Polyethylene Glycol 3350 17 GM PACKET PO (08:34)
[2020-05-15] MEDS: Cyanocobalamin 500 MCG Tablet 1000 MCG GT (08:34)
[2020-05-15] MEDS: Chlorhexidine 15 ML PO ×2 (08:35→21:01)
[2020-05-15] MEDS: Menthol/Lanolin/Calamine/Znox 113 GM Tube 1 APPLIC TOPICAL ×3 (08:45→17:10)
[2020-05-15] MEDS: CHLORHEXIDINE GLUC 2% CLOTH 1 EACH TOWELETTE TOPICAL (09:37)
--- NOTE | 2020-05-15 10:02 | CM.UR ---
Participated in interdisciplinary rounds this am. participated via phone. Patient remains on vent. He started with rectal bleeding and some bloody secretions when suctioned. Dr. López is holding the eliquis. Has completed his course of antibiotics. Case management will continue to follow for discharge planning. Salas Billings RN, [facility].
[2020-05-15] MEDS: Vital High Protein 1,000 ML 65 ML GT (12:45)
[2020-05-15] MEDS: 0.9% Saline Lock 10 ML Syringe IV ×2 (12:48→20:59)
[2020-05-15 13:51] LABS: Bedside Glucose 297 mg/dL (70-110)
[2020-05-15 17:21] LABS: Bedside Glucose 340 mg/dL (70-110)
[2020-05-15] MEDS: Atorvastatin Calcium 20 MG Tablet GT (21:00)
[2020-05-15 23:55] LABS: Bedside Glucose 345 mg/dL (70-110)
[2020-05-16] VITALS (36 sets, daily range): BP systolic 93–169; BP diastolic 43–87; PULSE 59–102; RESP 12–24; TEMP 36.8–37.4; O2SAT 90–93
[2020-05-16] MEDS: CHLORHEXIDINE GLUC 2% CLOTH 1 EACH TOWELETTE TOPICAL ×2 (01:20→23:33)
[2020-05-16] MEDS: Propofol 10MG/Ml 1,000 MG/100 ML Bottle 19 MG CONT INF (01:37)
[2020-05-16 04:39] LABS: Absolute Lymphocyte Count 0.57 X10^3/uL (0.83-4.51); Basophil# 0.01 X10^3/uL; Basophil% 0.1 % (0-1); Eosinophil# 0.08 X10^3/uL; Eosinophils% 1.1 % (0-5); Hematocrit 37.4 % (40-54); Hemoglobin 11.7 g/dL (13.0-16.5); Lymphocyte # 0.57 X10^3/ul (4.0); Mean Corp Hgb Conc 31.3 g/dL (32-36); Mean Corpuscular Hgb 29.7 pg (27.0-32.0); Mean Corpuscular Volume 94.9 fL (80-94); Mean Platelet Vol. 10.5 fl (6.2-12.0); Monocyte# 0.39 X10^3/uL; Monocyte% 5.5 % (0-10); NRBC Flagged by Analyzer 0 % (0-5); Neutrophil # 6.02 X10^3/uL (2.7-7.7); Neutrophil % 84.5 % (47-70); POSITIVE COUNT YES; POSITIVE DIFFERENTIAL YES; Platelet Count 62 K/mm3 (150-450); RBC Distribution Width CV 13.9 % (11.6-14.6); RBC Distribution Width SD 48.3 fl (35.1-43.9); Red Blood Count 3.94 M/mm3 (4.6-6.2); White Blood Count 7.1 K/mm3 (4.4-11.0)
[2020-05-16] MEDS: TITRATION PARAMETER CHANGE 1 EACH IV (04:56)
[2020-05-16 05:05] LABS: Differential Indicated SCAN CRITERIA MET
[2020-05-16 05:06] LABS: Differential Comment SCANNED; Platelet Estimate MOD DEC (ADEQ)
[2020-05-16 05:22] LABS: ALB/GLOB Ratio 0.4 RATIO (0.9-2.4); AST(SGOT) 61 U/L (15-37); Alanine Aminotransfer ALT/SGPT 105 U/L (16-61); Albumin, Serum 1.4 g/dL (3.2-5.0); Alkaline Phosphatase 162 U/L (45-117); Anion Gap 2 (5-15); BUN 69 mg/dL (7-18); BUN/Creat Ratio 78.8 RATIO (10-20); Calcium,Total 7.9 mg/dL (8.5-10.1); Chloride 106 mmol/L (98-107); Creatinine, Serum 0.88 mg/dL (0.70-1.30); EST Glomerular Filtration Rate 91 mL/min (>60); Est Glom Filt Rate - Afr Amer 110 mL/min (>60); Estimated Creatinine Clearance 69.48 ml/min; Globulin 3.8 g/dL (2.2-4.2); Glucose 363 mg/dL (74-106); Potassium 5.1 mmol/L (3.5-5.1); Protein, Total 5.2 g/dL (6.4-8.2); Sodium Level 142 mmol/L (136-145)
[2020-05-16] MEDS: Insulin Lispro 100 UNIT/ML INSULN.PEN SC ×4 (06:17→23:04)
[2020-05-16] MEDS: 0.9% Saline Lock 10 ML Syringe IV ×6 (06:18→23:33)
[2020-05-16] MEDS: Vital High Protein 1,000 ML 65 ML GT ×2 (06:18→21:15)
[2020-05-16] MEDS: Propofol 10MG/Ml 1,000 MG/100 ML Bottle 15.2 MG CONT INF ×2 (07:15→14:00)
[2020-05-16 07:25] LABS: Bedside Glucose 322 mg/dL (70-110)
--- NOTE | 2020-05-16 07:38 | PCM.PN.HOSP ---
Patient Problems: Active and Suspected Problems Hyperglycemia due to diabetes mellitus (Acute) COVID-19 (Acute) Hypoxemia (Acute) Pulmonary embolism (Acute) Sepsis (Acute) Shortness of breath (Acute) Intraperitoneal bleeding (Suspected) Reason for Visit: Follow-up on respiratory failure/COVID-19 pneumonia/bilateral multiple PE Subjective: Patient was seen and examined. He continues to have multiple maroon-colored stools. Remains intubated. Otherwise no new complaints. Objective: Physical exam: General: Intubated and sedated HEENT: Atraumatic, PERRLA, EOMI, Normocephalic, - - No scleral icterus or injection noted Oral: Moist Mucosa, No Gingival or Mucosal Lesions/ Ulcerations, - - Some breakdown of the lip noted Neck: Supple, No JVD, No Nodes, Trachea Midline Lungs: No wheeze, No rales, Diminished, Rhonchi, - - Symmetric expansion Cardiovascular: Regular rate, Regular Rhythm, Normal S1, Normal S2, No murmurs, No rub noted, No Gallop Abdomen: Bowel Sounds Present, Soft, Non Tender, Non-Distended Extremities: No clubbing, No cyanosis, Edema - Trace to lower extremity Skin: No rashes, No breakdown Musculoskeletal: No Tenderness to Palpation of Joints or Extremities Lymphatic: No Cervical, Supraclavicular, or Inguinal Adenopathy Neurological: Cranial nerves II-XII grossly intact, Neuro grossly intact Vitals/I&O's: Vital Signs Temp Pulse Resp BP Pulse Ox 98.8 F 64 13 121/52 H 92 05/16/20 07:00 05/16/20 07:00 05/16/20 07:00 05/16/20 07:00 05/16/20 07:00 Oxygen Flow Rate (L/min) 60 Oxygen Delivery Method Mechanical Ventilator Weight: 127 kg Body Mass Index (BMI) 42.2 Finger Stick Blood Glucose 161 Intake and Output for Last 24 Hours 05/14/20 05/15/20 05/16/20 23:59 23:59 23:59 Intake Total 1782.28 / 2842.48 3740.03 / 3776.53 758.70 / 758.70 Output Total 1750 / 2150 2575 / 2575 455 / 455 Balance 32.28 / 692.48 1165.03 / 1201.53 303.70 / 303.70 Microbiology Past 72 Hours 05/15/20 06:15 Stool Stool Occult Blood (GERMÁN) - Final Occult Blood Positive 05/12/20 09:40 Sputum, Induced/Lukens Gram Stain - Final 05/12/20 09:40 Sputum, Induced/Lukens Respiratory Culture - Final Presumptive C albicans Laboratory Results 05/15/20 12:43: POC Glucose 297 H 05/15/20 16:50: POC Glucose 340 H 05/15/20 22:58: POC Glucose 345 H 05/16/20 04:20: WBC 7.1, RBC 3.94 L, Hgb 11.7 L, Hct 37.4 L, MCV 94.9 H, MCH 29.7, MCHC 31.3 L D, RDW Std Deviation 48.3 H, RDW Coeff of Taras 13.9, Plt Count 62 L, MPV 10.5, Immature Gran % (Auto) 0.800, Neut % (Auto) 84.5 H, Lymph % (Auto) 8.0 L, [place] % (Auto) 5.5, Eos % (Auto) 1.1, Baso % (Auto) 0.1, Absolute Neuts (auto) 6.0, Absolute Lymphs (auto) 0.57 L, Nucleated RBC % 0, Differential Comment SCANNED, Platelet Estimate MOD 05/16/20 04:20: Sodium 142, Potassium 5.1, Chloride 106, Carbon Dioxide 34.0 H, Anion Gap 2 L, BUN 69 H, Creatinine 0.88, Estim Creat Clear Calc 69.48, Est GFR (MDRD) Af Amer 110, Est GFR (MDRD) Non-Af 91, BUN/Creatinine Ratio 78.8 H, Glucose 363 H, Calcium 7.9 L, Total Bilirubin 0.80, AST 61 H, ALT 105 H, Alkaline Phosphatase 162 H, Total Protein 5.2 L, Albumin 1.4 L, Globulin 3.8, Albumin/Globulin Ratio 0.4 L 05/16/20 06:13: POC Glucose 322 H Current Medications Acetaminophen (Acetaminophen 650 Mg/20 Ml Udc) 650 mg GT Q6H PRN PRN PRN Reason: Pain Score 1-10/Temp > 100.7 F Al Hydroxide/Mg Hydroxide (Mag Hydrox/Al Hydrox/Simeth 30 Ml Udc) 30 ml GT Q6H PRN PRN PRN Reason: Gastric Burning Albuterol Sulfate (Albuterol Ih 8.5 Gm (Proair) Inhaler (200 Puffs)) 2.5 puff INHALATION Q2H PRN PRN PRN Reason: Shortness of Breath/Wheezing Last Admin: 05/09/20 18:57 Dose: 2.5 puff Documented by: Atorvastatin Calcium (Atorvastatin Calcium 20 Mg Tablet) 20 mg GT QHS [facility] Last Admin: 05/15/20 21:00 Dose: 20 mg Documented by: Calamine/Phenol (Menthol/Lanolin/Calamine/Znox 113 Gm Tube) 1 applic TOPICAL TIDCM [facility]; Protocol Last Admin: 05/15/20 17:10 Dose: 1 applicatio Documented by: Chlorhexidine Gluconate (Chlorhexidine 15 Ml) 15 ml PO BID [facility] Last Admin: 05/15/20 21:01 Dose: 15 ml Documented by: Chlorhexidine Gluconate (Chlorhexidine Gluc 2% Cloth 1 Each Towelette) 1 each TOPICAL DAILY [facility] Last Admin: 05/16/20 01:20 Dose: 1 each Documented by: Cholecalciferol (Cholecalciferol (Vit D3) 1,000 Unit (25mcg)) 1,000 unit GT BID [facility] Last Admin: 05/15/20 21:00 Dose: 1,000 unit Documented by: Cyanocobalamin (Cyanocobalamin 500 Mcg Tablet) 1,000 mcg GT DAILY [facility] Last Admin: 05/15/20 08:34 Dose: 1,000 mcg Documented by: Dexamethasone (Dexamethasone 4 Mg Tablet) 6 mg GT DAILY [facility] Stop: 05/21/20 10:01 Last Admin: 05/15/20 08:33 Dose: 6 mg Documented by: Dextrose (Dextrose 50%-Water 25 Gm/50 Ml Disp.Syrin) 0 gm IV X1 PRN; Protocol PRN Reason: Hypoglycemia Last Admin: 05/11/20 03:54 Dose: 12.5 gm Documented by: Furosemide (Furosemide 40 Mg/4 Ml Vial) 40 mg IV DAILY [facility] Last Admin: 05/15/20 08:33 Dose: 40 mg Documented by: Glucagon (Glucagon 1 Mg/Ml Syringe) 1 mg IM .X1 PRN PRN Reason: Hypoglycemia Sodium Chloride () 250 mls @ 15 mls/hr IV .[id number] PRN PRN Reason: Saline Flush Last Infusion: 05/15/20 07:22 Dose: Infused Documented by: Sodium Chloride () 250 mls @ 15 mls/hr IV .[id number] PRN PRN Reason: Additional IVPB Infusion Propofol (Diprivan) 1,000 mg in 100 mls @ 7.62 mls/hr CONT INF .Q12H [facility]; Protocol Last Admin: 05/16/20 07:15 Dose: 20 mcg/kg/min, 15.2 mls/hr Documented by: Fentanyl Citrate 1,000 mcg/ (Sodium Chloride) 100 mls @ 5 mls/hr CONT INF .Q20H [facility]; Protocol Last Titration: 05/16/20 07:15 Dose: 175 mcg/hr, 17.5 mls/hr Documented by: Enteral Nutritional Formula (Vital High Protein) 1,000 mls @ 65 mls/hr GT .[id number] [facility] Last Admin: 05/16/20 06:18 Dose: 65 mls/hr Documented by: Pantoprazole Sodium 40 mg/ (Sodium Chloride) 110 mls @ 330 mls/hr IV Q12 [facility] Last Infusion: 05/15/20 21:26 Dose: Infused Documented by: Insulin Glargine (Insulin Glargine 100 Units/Ml Pen) 120 units SC BID [facility] Insulin Human Lispro (Insulin Lispro 100 Unit/Ml Insuln.Pen) 0 unit SC Q6 [facility]; Protocol Last Admin: 05/16/20 06:17 Dose: 9 u Documented by: Magnesium Hydroxide (Magnesium Hydroxide 30 Ml Udc) 30 ml GT DAILY PRN PRN PRN Reason: Constipation Last Admin: 05/15/20 05:54 Dose: 30 ml Documented by: Melatonin (Melatonin 3 Mg Tablet) 3 mg PO QHS PRN PRN PRN Reason: INSOMNIA Last Admin: 05/11/20 21:42 Dose: 3 mg Documented by: Nitroglycerin (Nitroglycerin (Inpatient Use) 0.4 Mg Tab.Subl) 0.4 mg SUBLINGUAL Q5M PRN PRN Reason: CARDIAC/CHEST PAIN Ondansetron HCl (Ondansetron 4 Mg/2 Ml Vial) 4 mg IV Q8H PRN PRN PRN Reason: NAUSEA/VOMITING Last Admin: 05/11/20 09:14 Dose: 4 mg Documented by: Polyethylene Glycol (Polyethylene Glycol 3350 17 Gm Packet) 17 gm PO DAILY [facility] Last Admin: 05/15/20 08:34 Dose: 17 gm Documented by: Prochlorperazine Edisylate (Prochlorperazine 10 Mg/2 Ml Vial) 5 mg IV Q4H PRN PRN PRN Reason: Breakthrough nausea/vomiting Senna/Docusate Sodium (Senna/Docusate Sodium 1 Tablet) 2 tablet GT BID [facility] Last Admin: 05/15/20 21:00 Dose: 2 tablet Documented by: Sodium Chloride (0.9% Saline Lock 10 Ml Syringe) 10 - 40 ml IV UD PRN PRN Reason: SALINE FLUSH Last Admin: 05/16/20 06:18 Dose: 20 ml Documented by: Sodium Chloride (Sodium Chloride 0.65% 1 [place].Btl) 2 spray NASAL TID PRN PRN PRN Reason: NASAL DRYNESS Last Admin: 05/06/20 21:47 Dose: 2 spray Documented by: STROKE Vital Signs/Narrative: Vital Signs Temp Pulse Resp BP Pulse Ox 05/16/20 07:00 98.8 F 64 13 121/52 H 92 05/16/20 06:00 98.4 F 60 13 108/47 L 93 05/16/20 05:00 98.4 F 61 14 99/46 L 92 05/16/20 04:00 98.6 F 62 14 97/48 L 92 Medical Necessity - Tobacco Use Smoking Status: Never smoker Assessment/Plan All Active Problems Hyperglycemia due to diabetes mellitus (Acute) COVID-19 (Acute) Hypoxemia (Acute) Pulmonary embolism (Acute) Sepsis (Acute) History of cholecystectomy (Resolved) Shortness of breath (Acute) 1. Acute respiratory failure secondary to COVID-19 pneumonia/bilateral PE, worsened Status post intubation on 05/12/20 Patient self extubated on 05/14/20 morning; reintubated later Continue with breathing treatments Pulmonology following 2. Acute COVID-19 pneumonia with hypoxia, with possible concomitant HCAP Sputum cultures positive for Haemophilus influenza and Streptococcus agalactiae Completed 7 days of IV ceftriaxone; on extended Decadron Continue on Lasix IV 3. Acute GI bleed, noted on 05/15/20, hemoglobin appears to have dropped from 13.2-11.7 Repeat H&H at 5 PM Continue off Eliquis, on IV PPI 4. Acute bilateral PE likely secondary to #2 Off Apixaban 5. Staph epidermidis bacteremia, likely contaminant Completed IV ceftriaxone 6. Hypertension/hyperlipidemia/paroxysmal atrial fibrillation, appears stable, complicates care Continue on atenolol, atorvastatin, losartan 7. Type II DM, blood sugars fairly uncontrolled, Lantus increased today to 100 units BID Continue with insulin sliding scale also 8. DVT prophylaxis?off apixaban, SCDs Inpatient E&M: 53018 Subs Hosp L3
--- NOTE | 2020-05-16 07:39 | PCM.PN.INT ---
Subjective: Patient did okay overnight. Blood pressures have been marginal, but no pressors have been required. Patient continues to have hyperglycemia despite Lantus therapy. Nursing has reported multiple small to moderate bowel movements that are maroon in color. Endotracheal secretions have improved and oxygen has been weaned. General: - - Intubated and sedated. RASS -2. HEENT: Atraumatic, PERRLA, EOMI, Normocephalic, - - No scleral icterus or injection noted Oral: No Gingival or Mucosal Lesions/ Ulcerations, Dry Mucosa Neck: Supple, No JVD, No Nodes, Trachea Midline, - - PICC is clean, dry and intact Lungs: No rhonchi, No wheeze, No rales, Diminished Cardiovascular: Regular rate, Regular Rhythm, Normal S1, Normal S2, No murmurs, No rub noted, No Gallop Abdomen: Bowel Sounds Present, Soft, Non Tender, Non-Distended, Obese Extremities: No clubbing, No cyanosis, Edema - Trace Skin: - - Significant breakdown in the gluteal fold Musculoskeletal: No Tenderness to Palpation of Joints or Extremities Lymphatic: No Cervical, Supraclavicular, or Inguinal Adenopathy Neurological: Cranial nerves II-XII grossly intact, Neuro grossly intact, Motor Exam 5/5 strength throughout Psych/Mental Status: Flat Affect Vital Signs Temp Pulse Resp BP Pulse Ox 37.1 C 64 13 121/52 H 92 05/16/20 07:00 05/16/20 07:00 05/16/20 07:00 05/16/20 07:00 05/16/20 07:00 Oxygen Flow Rate (L/min) 60 Oxygen Delivery Method Mechanical Ventilator Weight: 127 kg Body Mass Index (BMI) 42.2 Finger Stick Blood Glucose 161 Intake and Output for Last 24 Hours 05/14/20 05/15/20 05/16/20 23:59 23:59 23:59 Intake Total 1782.28 / 2842.48 3740.03 / 3776.53 758.70 / 758.70 Output Total 1750 / 2150 2575 / 2575 455 / 455 Balance 32.28 / 692.48 1165.03 / 1201.53 303.70 / 303.70 Labs (Last 48 Hours) 05/14/20 05/14/20 05/14/20 12:46 18:17 21:40 WBC RBC Hgb Hct MCV MCH MCHC RDW Std Deviation RDW Coeff of Taras Plt Count MPV Immature Gran % (Auto) Neut % (Auto) Lymph % (Auto) [place] % (Auto) Eos % (Auto) Baso % (Auto) Absolute Neuts (auto) Absolute Lymphs (auto) Nucleated RBC % Differential Comment Platelet Estimate Sodium Potassium Chloride Carbon Dioxide Anion Gap BUN Creatinine Estim Creat Clear Calc Est GFR (MDRD) Af Amer Est GFR (MDRD) Non-Af BUN/Creatinine Ratio Glucose Calcium Phosphorus Magnesium Total Bilirubin AST ALT Alkaline Phosphatase Total Protein Albumin Globulin Albumin/Globulin Ratio POC Glucose 241 H 380 H 370 H 05/15/20 05/15/20 05/15/20 00:04 04:29 04:29 WBC 12.3 H RBC 4.23 L Hgb 13.2 Hct 39.6 L MCV 93.6 MCH 31.2 MCHC 33.3 RDW Std Deviation 46.5 H RDW Coeff of Taras 13.7 Plt Count 90 L MPV 11.0 Immature Gran % (Auto) 1.100 H Neut % (Auto) 86.3 H Lymph % (Auto) 5.4 L [place] % (Auto) 6.3 Eos % (Auto) 0.8 Baso % (Auto) 0.1 Absolute Neuts (auto) 10.7 H Absolute Lymphs (auto) 0.66 L Nucleated RBC % 0 Differential Comment SCANNED Platelet Estimate SLT DEC Sodium 135 L Potassium 4.8 Chloride 101 Carbon Dioxide 31.0 Anion Gap 3 L BUN 71 H Creatinine 0.92 Estim Creat Clear Calc 66.46 Est GFR (MDRD) Af Amer 104 Est GFR (MDRD) Non-Af 86 BUN/Creatinine Ratio 77.1 H Glucose 356 H Calcium 7.6 L Phosphorus 3.2 Magnesium 2.9 H Total Bilirubin 1.20 H AST 66 H ALT 93 H Alkaline Phosphatase 146 H Total Protein 5.4 L Albumin 1.5 L Globulin 3.9 Albumin/Globulin Ratio 0.4 L POC Glucose 320 H 05/15/20 05/15/20 05/15/20 04:29 05:52 12:43 WBC RBC Hgb Hct MCV MCH MCHC RDW Std Deviation RDW Coeff of Taras Plt Count MPV Immature Gran % (Auto) Neut % (Auto) Lymph % (Auto) [place] % (Auto) Eos % (Auto) Baso % (Auto) Absolute Neuts (auto) Absolute Lymphs (auto) Nucleated RBC % Differential Comment Platelet Estimate Sodium Potassium Chloride Carbon Dioxide Anion Gap BUN Creatinine Estim Creat Clear Calc Est GFR (MDRD) Af Amer Est GFR (MDRD) Non-Af BUN/Creatinine Ratio Glucose Calcium Phosphorus Cancelled Magnesium Cancelled Total Bilirubin AST ALT Alkaline Phosphatase Total Protein Albumin Globulin Albumin/Globulin Ratio POC Glucose 306 H 297 H 05/15/20 05/15/20 05/16/20 16:50 22:58 04:20 WBC 7.1 RBC 3.94 L Hgb 11.7 L Hct 37.4 L MCV 94.9 H MCH 29.7 MCHC 31.3 L D RDW Std Deviation 48.3 H RDW Coeff of Taras 13.9 Plt Count 62 L MPV 10.5 Immature Gran % (Auto) 0.800 Neut % (Auto) 84.5 H Lymph % (Auto) 8.0 L [place] % (Auto) 5.5 Eos % (Auto) 1.1 Baso % (Auto) 0.1 Absolute Neuts (auto) 6.0 Absolute Lymphs (auto) 0.57 L Nucleated RBC % 0 Differential Comment SCANNED Platelet Estimate MOD DEC Sodium Potassium Chloride Carbon Dioxide Anion Gap BUN Creatinine Estim Creat Clear Calc Est GFR (MDRD) Af Amer Est GFR (MDRD) Non-Af BUN/Creatinine Ratio Glucose Calcium Phosphorus Magnesium Total Bilirubin AST ALT Alkaline Phosphatase Total Protein Albumin Globulin Albumin/Globulin Ratio POC Glucose 340 H 345 H 05/16/20 05/16/20 04:20 06:13 WBC RBC Hgb Hct MCV MCH MCHC RDW Std Deviation RDW Coeff of Taras Plt Count MPV Immature Gran % (Auto) Neut % (Auto) Lymph % (Auto) [place] % (Auto) Eos % (Auto) Baso % (Auto) Absolute Neuts (auto) Absolute Lymphs (auto) Nucleated RBC % Differential Comment Platelet Estimate Sodium 142 Potassium 5.1 Chloride 106 Carbon Dioxide 34.0 H Anion Gap 2 L BUN 69 H Creatinine 0.88 Estim Creat Clear Calc 69.48 Est GFR (MDRD) Af Amer 110 Est GFR (MDRD) Non-Af 91 BUN/Creatinine Ratio 78.8 H Glucose 363 H Calcium 7.9 L Phosphorus Magnesium Total Bilirubin 0.80 AST 61 H ALT 105 H Alkaline Phosphatase 162 H Total Protein 5.2 L Albumin 1.4 L Globulin 3.8 Albumin/Globulin Ratio 0.4 L POC Glucose 322 H Microbiology 05/15/20 06:15 Stool Stool Occult Blood (GERMÁN) - Final Occult Blood Positive 05/12/20 09:40 Sputum, Induced/Lukens Gram Stain - Final 05/12/20 09:40 Sputum, Induced/Lukens Respiratory Culture - Final Presumptive C albicans Medical Necessity - Tobacco Use Smoking Status: Never smoker Assessment/Plan All Active Problems Hyperglycemia due to diabetes mellitus (Acute) COVID-19 (Acute) Hypoxemia (Acute) Pulmonary embolism (Acute) Sepsis (Acute) History of cholecystectomy (Resolved) Shortness of breath (Acute) RECOMMENDATIONS: 1. Wean PEEP as possible. Continue to wean FiO2 to maintain saturations at or above 90%. 2. Continue repeat Decadron with plans to complete a 10-day treatment course. 3. Discontinue Eliquis given bleeding. On PPI twice daily 4. Propofol and fentanyl for vent synchrony. 5. Continue tube feeds to goal. Increase insulin coverage. Aggressive bowel regimen 6. Hold diuretic therapy given possible GI bleed IMPRESSIONS: 1. Acute hypoxemic respiratory failure secondary to COVID-19 pneumonia and bilateral pulmonary emboli Patient with consistent decompensation over hospital course. Patient was on BiPAP for essentially 3 days prior to requiring intubation on 05/12/2020. Oxygenation had significantly improved immediately after intubation. Patient appears to have stabilized from a respiratory standpoint outside of increased issues with plugging. This may be secondary to hemoptysis. Eliquis has been discontinued. Patient may need to be evaluated for lower extremity Dopplers with an IVC filter if present as anticoagulation will likely not be able to be continued. Continue to wean PEEP as tolerated. 2. Diabetes mellitus/hypertension/hyperlipidemia/BPH/obesity/paroxysmal atrial fibrillation Complicates care, management, recovery and prognosis. Recommend complete discontinuation of Pradaxa given high risk for bleeding complications. Increase Lantus 3. Melanotic stools/hemoptysis Will have to hold anticoagulation for now. Possibly start heparin drip if needs anticoagulation. There is no indication for transfusion at this time. Family understands why patient cannot receive anticoagulation at this time. Patient may benefit from a surgery evaluation, but hopes that coagulation will occur with discontinuation of Eliquis. TIME: 35 minutes of critical care time spent addressing patient's acute hypoxic respiratory failure, COVID-19 pneumonia, pulmonary emboli, review of all data and collaboration with care team (5:30 AM to 6:45 AM) [phone]: [id number] Critical care first hour
[2020-05-16] MEDS: Menthol/Lanolin/Calamine/Znox 113 GM Tube 1 APPLIC TOPICAL ×3 (08:18→17:38)
[2020-05-16] MEDS: Cyanocobalamin 500 MCG Tablet 1000 MCG GT (08:18)
[2020-05-16] MEDS: dexAMETHasone 4 MG Tablet 6 MG GT (08:19)
[2020-05-16] MEDS: Senna/Docusate Sodium 1 Tablet 2 TABLET GT ×2 (08:19→21:11)
[2020-05-16] MEDS: Chlorhexidine 15 ML PO ×2 (11:21→21:11)
[2020-05-16 11:55] LABS: Bedside Glucose 319 mg/dL (70-110)
[2020-05-16] MEDS: Polyethylene Glycol 3350 17 GM PACKET PO (17:38)
[2020-05-16 17:46] LABS: Hematocrit 38.4 % (40-54); Hemoglobin 12.4 g/dL (13.0-16.5); POSITIVE COUNT YES
[2020-05-16 17:52] LABS: International Normalized Ratio 1.4; Prothrombin Time (Protime)PT. 16.1 SECONDS (11.7-14.9)
[2020-05-16 17:53] LABS: Partial Thromboplast Time 27.9 Seconds (24.1-36.2)
[2020-05-16 19:16] LABS: Bedside Glucose 298 mg/dL (70-110)
[2020-05-16] MEDS: Atorvastatin Calcium 20 MG Tablet GT (21:11)
[2020-05-16] MEDS: Propofol 10MG/Ml 1,000 MG/100 ML Bottle 11.4 MG CONT INF (21:40)
[2020-05-17] VITALS (36 sets, daily range): BP systolic 90–144; BP diastolic 44–88; PULSE 59–93; RESP 12–21; TEMP 37.1–37.5; O2SAT 90–95
[2020-05-17 01:46] LABS: Bedside Glucose 217 mg/dL (70-110)
[2020-05-17] MEDS: Propofol 10MG/Ml 1,000 MG/100 ML Bottle 15.2 MG CONT INF (03:40)
[2020-05-17 03:42] LABS: Absolute Lymphocyte Count 0.54 X10^3/uL (0.83-4.51); Absolute Neutrophil Count 4.7 X10^3/uL (2.0-7.7); Basophil# 0.01 X10^3/uL; Basophil% 0.2 % (0-1); Eosinophils% 1.7 % (0-5); Hematocrit 36.3 % (40-54); Hemoglobin 11.9 g/dL (13.0-16.5); Lymphocyte # 0.54 X10^3/ul (4.0); Lymphocyte % 9.3 % (19-41); Mean Corp Hgb Conc 32.8 g/dL (32-36); Mean Corpuscular Hgb 31.2 pg (27.0-32.0); Mean Platelet Vol. 11.5 fl (6.2-12.0); Monocyte# 0.42 X10^3/uL; Monocyte% 7.2 % (0-10); NRBC Flagged by Analyzer 0 % (0-5); Neutrophil # 4.69 X10^3/uL (2.7-7.7); Neutrophil % 80.9 % (47-70); POSITIVE COUNT YES; POSITIVE DIFFERENTIAL YES; Platelet Count 56 K/mm3 (150-450); RBC Distribution Width CV 14.1 % (11.6-14.6); RBC Distribution Width SD 49.1 fl (35.1-43.9); Red Blood Count 3.82 M/mm3 (4.6-6.2); White Blood Count 5.8 K/mm3 (4.4-11.0)
[2020-05-17 03:43] LABS: Differential Indicated SCAN CRITERIA MET
[2020-05-17 03:59] LABS: ALB/GLOB Ratio 0.4 RATIO (0.9-2.4); AST(SGOT) 68 U/L (15-37); Alanine Aminotransfer ALT/SGPT 105 U/L (16-61); Albumin, Serum 1.4 g/dL (3.2-5.0); Alkaline Phosphatase 168 U/L (45-117); Anion Gap 2 (5-15); BUN 56 mg/dL (7-18); BUN/Creat Ratio 75.4 RATIO (10-20); Chloride 106 mmol/L (98-107); Creatinine, Serum 0.74 mg/dL (0.70-1.30); EST Glomerular Filtration Rate 110 mL/min (>60); Est Glom Filt Rate - Afr Amer 133 mL/min (>60); Estimated Creatinine Clearance 61.14 ml/min; Glucose 228 mg/dL (74-106); Potassium 5.3 mmol/L (3.5-5.1); Protein, Total 5.4 g/dL (6.4-8.2); Sodium Level 142 mmol/L (136-145)
[2020-05-17] MEDS: Insulin Lispro 100 UNIT/ML INSULN.PEN SC ×3 (05:47→17:32)
[2020-05-17] MEDS: 0.9% Saline Lock 10 ML Syringe IV ×3 (05:55→17:33)
[2020-05-17] MEDS: TITRATION PARAMETER CHANGE 1 EACH IV ×2 (06:11→06:19)
[2020-05-17] MEDS: Propofol 10MG/Ml 1,000 MG/100 ML Bottle 15.4 MG CONT INF ×2 (06:33→21:20)
--- NOTE | 2020-05-17 06:34 | PN_ITS ---
Subjective: The patient was seen and examined at the bedside this morning. Events from the last 24 hours have been reviewed. The patient currently has a low-grade fever but remains hemodynamically stable. He remains on assist control mode of mechanical ventilation with an FiO2 requirement of 50% and PEEP of 10. He remains sedated on both propofol and fentanyl. He is currently tolerating tube feeds. The patient does continue to have maroon-colored bowel movements, per nursing report. However, hemoglobin remains stable. The patient is currently documented to be overall net -2 L for the hospital admission. Objective: The patient's most recent lab work, culture data and imaging studies have all been personally reviewed. Sputum culture was positive for possible Haemophilus and group B streptococcus. General: - - Intubated, sedated and mechanically ventilated. No ventilator dyssynchrony noted. HEENT: Atraumatic, PERRLA, Normocephalic Oral: No Gingival or Mucosal Lesions/ Ulcerations, - - Endotracheal and OG tubes in place Neck: Supple, No Nodes, Trachea Midline Lungs: No rhonchi, No wheeze, No rales, Diminished Cardiovascular: Regular rate, Regular Rhythm Abdomen: Bowel Sounds Present, Soft, Non Tender, Obese Extremities: No clubbing, No cyanosis, No edema Skin: No rashes Musculoskeletal: No Muscle Wasting Lymphatic: No Cervical, Supraclavicular, or Inguinal Adenopathy Neurological: - - No focal neurological deficits. Remains sedated on the ventilator. Vital Signs Temp Pulse Resp BP Pulse Ox 99.2 F H 69 12 105/45 L 93 05/17/20 06:00 05/17/20 06:00 05/17/20 06:00 05/17/20 06:00 05/17/20 06:00 Oxygen Flow Rate (L/min) 60 Oxygen Delivery Method Mechanical Ventilator Weight: 282 lb 3.067 oz Body Mass Index (BMI) 42.2 Finger Stick Blood Glucose 161 Intake and Output for Last 24 Hours 05/15/20 05/16/20 05/17/20 23:59 23:59 23:59 Intake Total 3740.03 / 3776.53 2385.52 / 2406.82 721.12 / 721.12 Output Total 2575 / 2575 1780 / 1780 300 / 300 Balance 1165.03 / 1201.53 605.52 / 626.82 421.12 / 421.12 Labs (Last 48 Hours) 05/15/20 05/15/20 05/15/20 05:52 12:43 16:50 WBC RBC Hgb Hct MCV MCH MCHC RDW Std Deviation RDW Coeff of Taras Plt Count MPV Immature Gran % (Auto) Neut % (Auto) Lymph % (Auto) [place] % (Auto) Eos % (Auto) Baso % (Auto) Absolute Neuts (auto) Absolute Lymphs (auto) Nucleated RBC % Differential Comment Platelet Estimate PT INR APTT Sodium Potassium Chloride Carbon Dioxide Anion Gap BUN Creatinine Estim Creat Clear Calc Est GFR (MDRD) Af Amer Est GFR (MDRD) Non-Af BUN/Creatinine Ratio Glucose Calcium Total Bilirubin AST ALT Alkaline Phosphatase Total Protein Albumin Globulin Albumin/Globulin Ratio POC Glucose 306 H 297 H 340 H 05/15/20 05/16/20 05/16/20 22:58 04:20 04:20 WBC 7.1 RBC 3.94 L Hgb 11.7 L Hct 37.4 L MCV 94.9 H MCH 29.7 MCHC 31.3 L D RDW Std Deviation 48.3 H RDW Coeff of Taras 13.9 Plt Count 62 L MPV 10.5 Immature Gran % (Auto) 0.800 Neut % (Auto) 84.5 H Lymph % (Auto) 8.0 L [place] % (Auto) 5.5 Eos % (Auto) 1.1 Baso % (Auto) 0.1 Absolute Neuts (auto) 6.0 Absolute Lymphs (auto) 0.57 L Nucleated RBC % 0 Differential Comment SCANNED Platelet Estimate MOD DEC PT INR APTT Sodium 142 Potassium 5.1 Chloride 106 Carbon Dioxide 34.0 H Anion Gap 2 L BUN 69 H Creatinine 0.88 Estim Creat Clear Calc 69.48 Est GFR (MDRD) Af Amer 110 Est GFR (MDRD) Non-Af 91 BUN/Creatinine Ratio 78.8 H Glucose 363 H Calcium 7.9 L Total Bilirubin 0.80 AST 61 H ALT 105 H Alkaline Phosphatase 162 H Total Protein 5.2 L Albumin 1.4 L Globulin 3.8 Albumin/Globulin Ratio 0.4 L POC Glucose 345 H 05/16/20 05/16/20 05/16/20 06:13 11:13 16:48 WBC RBC Hgb Hct MCV MCH MCHC RDW Std Deviation RDW Coeff of Taras Plt Count MPV Immature Gran % (Auto) Neut % (Auto) Lymph % (Auto) [place] % (Auto) Eos % (Auto) Baso % (Auto) Absolute Neuts (auto) Absolute Lymphs (auto) Nucleated RBC % Differential Comment Platelet Estimate PT INR APTT Sodium Potassium Chloride Carbon Dioxide Anion Gap BUN Creatinine Estim Creat Clear Calc Est GFR (MDRD) Af Amer Est GFR (MDRD) Non-Af BUN/Creatinine Ratio Glucose Calcium Total Bilirubin AST ALT Alkaline Phosphatase Total Protein Albumin Globulin Albumin/Globulin Ratio POC Glucose 322 H 319 H 298 H 05/16/20 05/16/20 05/16/20 17:30 17:30 23:03 WBC RBC Hgb 12.4 L Hct 38.4 L MCV MCH MCHC RDW Std Deviation RDW Coeff of Taras Plt Count MPV Immature Gran % (Auto) Neut % (Auto) Lymph % (Auto) [place] % (Auto) Eos % (Auto) Baso % (Auto) Absolute Neuts (auto) Absolute Lymphs (auto) Nucleated RBC % Differential Comment Platelet Estimate PT 16.1 H INR 1.4 APTT 27.9 Sodium Potassium Chloride Carbon Dioxide Anion Gap BUN Creatinine Estim Creat Clear Calc Est GFR (MDRD) Af Amer Est GFR (MDRD) Non-Af BUN/Creatinine Ratio Glucose Calcium Total Bilirubin AST ALT Alkaline Phosphatase Total Protein Albumin Globulin Albumin/Globulin Ratio POC Glucose 217 H 05/17/20 05/17/20 03:30 03:30 WBC 5.8 RBC 3.82 L Hgb 11.9 L Hct 36.3 L MCV 95.0 H MCH 31.2 MCHC 32.8 RDW Std Deviation 49.1 H RDW Coeff of Taras 14.1 Plt Count 56 L MPV 11.5 Immature Gran % (Auto) 0.700 Neut % (Auto) 80.9 H Lymph % (Auto) 9.3 L [place] % (Auto) 7.2 Eos % (Auto) 1.7 Baso % (Auto) 0.2 Absolute Neuts (auto) 4.7 Absolute Lymphs (auto) 0.54 L Nucleated RBC % 0 Differential Comment Platelet Estimate PT INR APTT Sodium 142 Potassium 5.3 H Chloride 106 Carbon Dioxide 34.0 H Anion Gap 2 L BUN 56 H Creatinine 0.74 Estim Creat Clear Calc 61.14 Est GFR (MDRD) Af Amer 133 Est GFR (MDRD) Non-Af 110 BUN/Creatinine Ratio 75.4 H Glucose 228 H Calcium 8.0 L Total Bilirubin 0.90 AST 68 H ALT 105 H Alkaline Phosphatase 168 H Total Protein 5.4 L Albumin 1.4 L Globulin 4.0 Albumin/Globulin Ratio 0.4 L POC Glucose Microbiology 05/15/20 15:00 Sputum, Induced/Lukens Gram Stain - Final 05/15/20 15:00 Sputum, Induced/Lukens Respiratory Culture - Preliminary Appears to be normal respiratory manasa. Further studies to follow. 05/15/20 06:15 Stool Stool Occult Blood (GERMÁN) - Final Occult Blood Positive Clinical Impression(s) from Imaging Studies Chest X-Ray 05/03/20 08:55 IMPRESSION: Minimal increased markings at the left lung base with blunting of left costophrenic angle. There has been no change since prior study. Electronically Signed: Casimiro Marie MD at 9:09 EST , Service support , Chest CTA 05/03/20 09:36 IMPRESSION: Multiple bilateral pulmonary emboli involving branches of the lower lobe pulmonary arteries. Multiple bilateral pulmonary infiltrates as described. Splenomegaly. Electronically Signed: Casimiro Marie MD at 10:41 EST , Service support , Chest X-Ray 05/10/20 13:01 IMPRESSION: Patchy bilateral pulmonary infiltrates in a peripheral distribution worse in the left hemithorax. Findings are in keeping with Covid. Electronically Signed: Casimiro Marie MD at 13:48 EST , Service support , Chest X-Ray 05/12/20 09:35 IMPRESSION: The tip of the endotracheal tube is at 4.5 cm proximal to the adonis. Stable bilateral patchy pulmonary infiltrates in a peripheral distribution. Electronically Signed: Casimiro Marie MD at 10:45 EST , Service support , Chest X-Ray 05/12/20 16:43 IMPRESSION: 1. Interval placement of left-sided PICC line with the tip within the mid SVC. No pneumothorax. 2. No significant interval change of cardiopulmonary status. at 1824 Reported and signed by: Keagan Hensley MD Electronically Signed: Keagan Hensley MD at 18:23 EST Tel , Service support , Chest X-Ray 05/14/20 05:17 IMPRESSION: Support apparatus as above. Diffuse pulmonary infiltrates. Nonspecific however can be seen with infectious inflammatory process. Findings can be seen with an atypical viral infectious process given patient''s history. Recommend follow-up imaging to resolution. No significant change in the appearance of the lungs. Electronically Signed: Dennis Baldwin MD at 6:32 EST Tel , Service support , Medical Necessity - Tobacco Use Smoking Status: Never smoker Assessment/Plan All Active Problems Hyperglycemia due to diabetes mellitus (Acute) COVID-19 (Acute) Hypoxemia (Acute) Pulmonary embolism (Acute) Sepsis (Acute) History of cholecystectomy (Resolved) Shortness of breath (Acute) RECOMMENDATIONS: 1. Continue patient on assist control mode of mechanical ventilation and wean FiO2 and PEEP to maintain saturations at or above 90%. 2. Continue Decadron as ordered. 3. Start continuous heparin infusion. Monitor hemoglobin and platelet count tomorrow. 4. Continue PPI therapy twice daily. 5. Continue tube feeds as tolerated. 6. Continue Lantus and sliding scale insulin coverage. 7. Ongoing goals of care discussions with the patient's . IMPRESSIONS: 1. Acute hypoxemic respiratory failure secondary to COVID-19 pneumonia and bilateral pulmonary emboli The patient was initially admitted to the hospital and diagnosed with COVID-19 pneumonia and bilateral pulmonary emboli. Over the course of his hospitalization, the patient continued to decompensate from a respiratory perspective, requiring increasing amounts of supplemental oxygen. The patient eventually required intubation on May 12. Plan to continue the patient on assist control mode of mechanical ventilation and wean FiO2 and PEEP to maintain saturations at or above 90%. The patient has completed a treatment course of remdesivir and will remain on Decadron. The patient was also treated with antibiotics given Haemophilus isolated from sputum culture. Although the patient was initially started on Eliquis, his systemic anticoagulation was discontinued over concerns for possible lower GI bleeding. However, given the fact that his hemoglobin remained stable, I would advocate that a continuous heparin infusion be started today. 2. Melena/occult blood positive stools Plan to continue current supportive measures with twice daily PPI therapy. As noted above, given the patient's history of PE, he will be started on a continuous heparin infusion today. If hemoglobin or platelet count continues to drop, will need to reconsider possibly discontinuing all forms of antico agulation. 3. Diabetes mellitus/hypertension/hyperlipidemia/BPH/obesity/paroxysmal atrial fibrillation Complicates care, management, recovery and prognosis. Continue home medications as indicated. Physical therapy to work with the patient as tolerated. Continue Lantus and sliding scale insulin coverage. TIME: 38 minutes of critical care time, independent of procedures, was spent addressing the patient's acute hypoxemic respiratory failure, COVID-19 pneumonia, pulmonary emboli, possible lower GI bleeding, review of all data and collaboration with the care team. ([id number]) [id number]: [id number] Critical care first hour
[2020-05-17 06:35] LABS: Bedside Glucose 238 mg/dL (70-110)
--- NOTE | 2020-05-17 07:20 | PCM.PN.HOSP ---
Patient Problems: Active and Suspected Problems Hyperglycemia due to diabetes mellitus (Acute) COVID-19 (Acute) Hypoxemia (Acute) Pulmonary embolism (Acute) Sepsis (Acute) Shortness of breath (Acute) Intraperitoneal bleeding (Suspected) Subjective: Patient overnight with continued low-grade fevers otherwise no acute events per nursing report. Patient continued intubated with FiO2 50% and PEEP of 10 on both propofol and fentanyl with toleration of tube feeds. Per discussion with ICU staff patient with continued maroon-colored bowel movements although hemoglobin has remained stable. ICU staff discussed current presentation with patient family this a.m. and they understand that at this point he is near 2 weeks intubated status and will continue to closely monitor but likely will not want patient trached or PEG. Patient without obvious evidence of chills, nausea, emesis, abdominal pain, chest pain or dyspnea although limited given intubated, sedated status. Objective: Physical Examination: General: Sedated, intubated, no obvious distress, laying in the ICU bed. Skin: normal color, turgor, no icterus, cyanosis. HEENT: AT/NC, EOM unable to be assessed given sedated status as noted, PERRLA, mildly dry MM, ET tube and OG tube in place. Lungs: Diminished breath sounds, greater bases, symmetric rise, intubated, sedated, no obvious rales, rhonchi or wheezing currently. Heart: Regular rate and rhythm; no gallop, rub audible. Abdomen: soft, overly obese, NTTP, ND, mildly hyperactive bowel sounds. Extremities: no cyanosis or clubbing, mild bilateral ankle and hand nonpitting edema. Neurological: Patient sedated, intubated, not alert or oriented, cognitive function not baseline intact, pupils equally reactive to light and accomodation; cranial nerves unable to be assessed given sedated status, not moving extremities to withdrawal but heavily sedated, strength accordingly severely globally decreased. Psychiatric: affect appears flat, sedate, no acute evidence of depressive or anxiety feelings. Vitals/I&O's: Vital Signs Temp Pulse Resp BP Pulse Ox 99.2 F H 69 12 105/45 L 93 05/17/20 06:00 05/17/20 06:00 05/17/20 06:00 05/17/20 06:00 05/17/20 06:00 Oxygen Flow Rate (L/min) 60 Oxygen Delivery Method Mechanical Ventilator Weight: 282 lb 3.067 oz Body Mass Index (BMI) 42.2 Finger Stick Blood Glucose 161 Intake and Output for Last 24 Hours 05/15/20 05/16/20 05/17/20 23:59 23:59 23:59 Intake Total 3740.03 / 3776.53 2385.52 / 2406.82 721.12 / 721.12 Output Total 2575 / 2575 1780 / 1780 300 / 300 Balance 1165.03 / 1201.53 605.52 / 626.82 421.12 / 421.12 Microbiology Past 72 Hours 05/15/20 15:00 Sputum, Induced/Lukens Gram Stain - Final 05/15/20 15:00 Sputum, Induced/Lukens Respiratory Culture - Preliminary Appears to be normal respiratory manasa. Further studies to follow. 05/15/20 06:15 Stool Stool Occult Blood (GERMÁN) - Final Occult Blood Positive 05/12/20 09:40 Sputum, Induced/Lukens Gram Stain - Final 05/12/20 09:40 Sputum, Induced/Lukens Respiratory Culture - Final Presumptive C albicans Laboratory Results 05/16/20 06:13: POC Glucose 322 H 05/16/20 11:13: POC Glucose 319 H 05/16/20 16:48: POC Glucose 298 H 05/16/20 17:30: Hgb 12.4 L, Hct 38.4 L 05/16/20 17:30: PT 16.1 H, INR 1.4, APTT 27.9 05/16/20 23:03: POC Glucose 217 H 05/17/20 03:30: WBC 5.8, RBC 3.82 L, Hgb 11.9 L, Hct 36.3 L, MCV 95.0 H, MCH 31.2, MCHC 32.8, RDW Std Deviation 49.1 H, RDW Coeff of Taras 14.1, Plt Count 56 L, MPV 11.5, Immature Gran % (Auto) 0.700, Neut % (Auto) 80.9 H, Lymph % (Auto) 9.3 L, [place] % (Auto) 7.2, Eos % (Auto) 1.7, Baso % (Auto) 0.2, Absolute Neuts (auto) 4.7, Absolute Lymphs (auto) 0.54 L, Nucleated RBC % 0 02/08/21 03:30: Sodium 142, Potassium 5.3 H, Chloride 106, Carbon Dioxide 34.0 H, Anion Gap 2 L, BUN 56 H, Creatinine 0.74, Estim Creat Clear Calc 61.14, Est GFR (MDRD) Af Amer 133, Est GFR (MDRD) Non-Af 110, BUN/Creatinine Ratio 75.4 H, Glucose 228 H, Calcium 8.0 L, Total Bilirubin 0.90, AST 68 H, ALT 105 H, Alkaline Phosphatase 168 H, Total Protein 5.4 L, Albumin 1.4 L, Globulin 4.0, Albumin/Globulin Ratio 0.4 L 05/17/20 05:46: POC Glucose 238 H Current Medications Acetaminophen (Acetaminophen 650 Mg/20 Ml Udc) 650 mg GT Q6H PRN PRN PRN Reason: Pain Score 1-10/Temp > 100.7 F Al Hydroxide/Mg Hydroxide (Mag Hydrox/Al Hydrox/Simeth 30 Ml Udc) 30 ml GT Q6H PRN PRN PRN Reason: Gastric Burning Albuterol Sulfate (Albuterol Ih 8.5 Gm (Proair) Inhaler (200 Puffs)) 2.5 puff INHALATION Q2H PRN PRN PRN Reason: Shortness of Breath/Wheezing Last Admin: 05/09/20 18:57 Dose: 2.5 puff Documented by: Atorvastatin Calcium (Atorvastatin Calcium 20 Mg Tablet) 20 mg GT QHS [facility] Last Admin: 05/16/20 21:11 Dose: 20 mg Documented by: Calamine/Phenol (Menthol/Lanolin/Calamine/Znox 113 Gm Tube) 1 applic TOPICAL TIDCM KEERTHI; Protocol Last Admin: 05/16/20 17:38 Dose: 1 applicatio Documented by: Chlorhexidine Gluconate (Chlorhexidine 15 Ml) 15 ml PO BID [facility] Last Admin: 05/16/20 21:11 Dose: 15 ml Documented by: Chlorhexidine Gluconate (Chlorhexidine Gluc 2% Cloth 1 Each Towelette) 1 each TOPICAL DAILY [facility] Last Admin: 05/16/20 23:33 Dose: 1 each Documented by: Cholecalciferol (Cholecalciferol (Vit D3) 1,000 Unit (25mcg)) 1,000 unit GT BID [facility] Last Admin: 05/16/20 21:12 Dose: 1,000 unit Documented by: Cyanocobalamin (Cyanocobalamin 500 Mcg Tablet) 1,000 mcg GT DAILY KEERTHI Last Admin: 05/16/20 08:18 Dose: 1,000 mcg Documented by: Dexamethasone (Dexamethasone 4 Mg Tablet) 6 mg GT DAILY [facility] Stop: 05/21/20 10:01 Last Admin: 05/16/20 08:19 Dose: 6 mg Documented by: Dextrose (Dextrose 50%-Water 25 Gm/50 Ml Disp.Syrin) 0 gm IV X1 PRN; Protocol PRN Reason: Hypoglycemia Last Admin: 05/11/20 03:54 Dose: 12.5 gm Documented by: Glucagon (Glucagon 1 Mg/Ml Syringe) 1 mg IM .X1 PRN PRN Reason: Hypoglycemia Sodium Chloride () 250 mls @ 15 mls/hr IV .[id number] PRN PRN Reason: Saline Flush Last Infusion: 05/15/20 07:22 Dose: Infused Documented by: Sodium Chloride () 250 mls @ 15 mls/hr IV .[id number] PRN PRN Reason: Additional IVPB Infusion Propofol (Diprivan) 1,000 mg in 100 mls @ 7.68 mls/hr CONT INF .Q12H KEERTHI; Protocol Last Admin: 05/17/20 06:33 Dose: 20 mcg/kg/min, 15.4 mls/hr Documented by: Fentanyl Citrate 1,000 mcg/ (Sodium Chloride) 100 mls @ 5 mls/hr CONT INF .Q20H [facility]; Protocol Last Titration: 05/17/20 06:00 Dose: 175 mcg/hr, 17.5 mls/hr Documented by: Enteral Nutritional Formula (Vital High Protein) 1,000 mls @ 65 mls/hr GT .[id number] [facility] Last Admin: 05/16/20 21:15 Dose: 65 mls/hr Documented by: Pantoprazole Sodium 40 mg/ (Sodium Chloride) 110 mls @ 330 mls/hr IV Q12 [facility] Last Infusion: 05/16/20 21:32 Dose: Infused Documented by: Insulin Glargine (Insulin Glargine 100 Units/Ml Pen) 120 units SC BID@0000,1200 KEERTHI Last Admin: 05/16/20 23:06 Dose: 120 units Documented by: Insulin Human Lispro (Insulin Lispro 100 Unit/Ml Insuln.Pen) 0 unit SC Q6 KEERTHI; Protocol Last Admin: 05/17/20 05:47 Dose: 6 u Documented by: Magnesium Hydroxide (Magnesium Hydroxide 30 Ml Udc) 30 ml GT DAILY PRN PRN PRN Reason: Constipation Last Admin: 05/15/20 05:54 Dose: 30 ml Documented by: Melatonin (Melatonin 3 Mg Tablet) 3 mg PO QHS PRN PRN PRN Reason: INSOMNIA Last Admin: 05/11/20 21:42 Dose: 3 mg Documented by: Nitroglycerin (Nitroglycerin (Inpatient Use) 0.4 Mg Tab.Subl) 0.4 mg SUBLINGUAL Q5M PRN PRN Reason: CARDIAC/CHEST PAIN Ondansetron HCl (Ondansetron 4 Mg/2 Ml Vial) 4 mg IV Q8H PRN PRN PRN Reason: NAUSEA/VOMITING Last Admin: 05/11/20 09:14 Dose: 4 mg Documented by: Polyethylene Glycol (Polyethylene Glycol 3350 17 Gm Packet) 17 gm PO DAILY KEERTHI Last Admin: 05/16/20 17:38 Dose: 17 gm Documented by: Prochlorperazine Edisylate (Prochlorperazine 10 Mg/2 Ml Vial) 5 mg IV Q4H PRN PRN PRN Reason: Breakthrough nausea/vomiting Senna/Docusate Sodium (Senna/Docusate Sodium 1 Tablet) 2 tablet GT BID [facility] Last Admin: 05/16/20 21:11 Dose: 2 tablet Documented by: Sodium Chloride (0.9% Saline Lock 10 Ml Syringe) 10 - 40 ml IV UD PRN PRN Reason: SALINE FLUSH Last Admin: 05/17/20 05:55 Dose: 30 ml Documented by: Sodium Chloride (Sodium Chloride 0.65% 1 [place].Btl) 2 spray NASAL TID PRN PRN PRN Reason: NASAL DRYNESS Last Admin: 05/06/20 21:47 Dose: 2 spray Documented by: STROKE Vital Signs/Narrative: Vital Signs Temp Pulse Resp BP Pulse Ox 05/17/20 06:00 99.2 F H 69 12 105/45 L 93 05/17/20 05:00 99.2 F H 70 12 111/55 L 92 05/17/20 04:00 98.8 F 81 14 138/58 H 92 05/17/20 03:21 62 16 92 Medical Necessity - Tobacco Use Smoking Status: Never smoker Assessment/Plan All Active Problems Hyperglycemia due to diabetes mellitus (Acute) COVID-19 (Acute) Hypoxemia (Acute) Pulmonary embolism (Acute) Sepsis (Acute) History of cholecystectomy (Resolved) Shortness of breath (Acute) The patient is a 69 y/o M w/ PMHx: Chronic Thrombocytopenia, Morbid Obesity, HTN, HLD, Diabetes mellitus type II, PAF, MARIELLE, BPH who presents to the [facility] ED on 05/03/20 with history of Covid diagnosis on 04/27/2020 per PCP office with worsening symptoms despite discharged home at that time on Decadron with progressively worsening dyspnea, headache, fatigue, fever, chills. 1. Acute hypoxic respiratory failure secondary to acute bilateral pneumonia and bilateral pulmonary emboli secondary to acute COVID-19 viral syndrome: Following admission patient with continued decompensation requiring eventual intubation 05/12/2020, evaluated by insurance broker and infectious disease with completion of remdesivir regimen, continued on Decadron with plan to continue 10-day course, treated also initially with antibiotics for sputum culture with noted Haemophilus, transition to Eliquis from Pradaxa secondary to bilateral PE however significant concerns as noted with possible GI bleeding although hemoglobin had remained stable therefore this had transiently been discontinued, plan 05/17/2020 transition to heparin drip with continued close monitoring without bolus, trend CBC, CMP, continue sedation with vent management per insurance broker, continue tube feeds currently at goal, continue both Lantus and insulin sliding scale coverage per tube feed protocols. Family 05/17/2020 noting would likely defer trach or PEG if patient is unable to be extubated. 2. Questionable GI bleed with melanotic stools noted to be occult blood positive: Continue patient on twice daily high-dose PPI, had been on Pradaxa prior to presentation with transition to Eliquis given noted bilateral PE however onset of concerning GI bleed therefore this has been discontinued, given significant presentation, high risk planned reinitiation anticoagulation with heparin drip 05/17/2020, will continue to closely monitor hemoglobin level, admission 05/03/2020 hemoglobin 13.6, 05/17/2020 11.9, continue to closely follow. If platelets or hemoglobin significantly decreased will necessitate discontinuation of heparin drip. Acute on Chronic thrombocytopenia: Admission platelets 56, improved following anticoagulation hold however despite this hold trended down again with noted 05/17/2020 platelets 56, will continue to closely monitor especially given intention for heparin initiation as noted above #1, #2. Prior baseline platelets appear to 3. Be primarily 60-80. 4. Elevated LFTs: Admission 05/03/2020 AST/ALT 26/28, alk phos 68 with eventual rise starting on 05/13/2020 with total bilirubin 1.40, AST/ALT 53/78, alk phos 119, now 05/17/2020 total bilirubin 0.9, AST/ALT 68/105, alk phos 168, likely secondary to acute presentation as noted #1, continue to closely trend. 5. Diabetes mellitus type II with hyperglycemia secondary to #1 with steroid usage as noted: Hold oral home regimen, continue altered insulin regimen currently insulin glargine 120 units subcu twice daily, currently on tube feeds, continue accu checks w/ ISS per tube feed protocols. 6. PAF: Previously on Pradaxa, discontinued and transition to Eliquis upon presentation as noted with #1 however held given #2, currently attempting heparin drip with continued close monitoring as noted, not on rate or rhythm agent currently. 7. Hypertension: BPs remain low normal, outpatient normally on atenolol, losartan which were both held, resume if clinically appropriate. 8. Hyperlipidemia: We will continue patient statin therapy. 9. Morbid Obesity: Weight loss and lifestyle changes will be encouraged once patient becomes cognizant/extubated if appropriate, nutrition consulted and following as noted for tube feeds. 10. MARIELLE: Currently intubated and sedated as noted above. 11. GERD: Currently on IV PPI as noted above. 12. DVT prophylaxis: SCDs, heparin drip being initiated, continue to closely monitor CBC as noted above. 13. CODE STATUS: Full code currently however family reticent to perform trach and PEG therefore likely if unable to be extubated would have transition of CODE STATUS. Inpatient E&M: [id number] [facility]
[2020-05-17] MEDS: Menthol/Lanolin/Calamine/Znox 113 GM Tube 1 APPLIC TOPICAL ×4 (08:28→21:38)
[2020-05-17] MEDS: Chlorhexidine 15 ML PO ×2 (08:29→21:36)
[2020-05-17] MEDS: dexAMETHasone 4 MG Tablet 6 MG GT (08:31)
[2020-05-17] MEDS: Polyethylene Glycol 3350 17 GM PACKET PO (08:31)
[2020-05-17] MEDS: Cyanocobalamin 500 MCG Tablet 1000 MCG GT (08:32)
[2020-05-17] MEDS: Senna/Docusate Sodium 1 Tablet 2 TABLET GT ×2 (08:32→21:39)
--- NOTE | 2020-05-17 10:14 | CASEMGMT ---
SW participated in ICU rounds, SW called after rounds to offer support. states that the doctor was talking about the pt getting a trach and peg, and she spoke w/their daughter about this. She states their daughter said pt would not want to do this. SW offered support and reminded her as per what the doctor said this morning, pt could be on the vent about 14 days before he would be asking family for a decision in regard to this. SW reminded that she is making decisions based on what the pt would want, though acknowledged that this can be difficult. SW let know SW is here for support to her and her family as needed. states understanding. She did also ask about how the hospital stay would be covered. SW explained pt will have a deductible and then should be covered, based on his insurance. SW remains available as needed. MIKALA Armas
[2020-05-17] MEDS: HEPARIN/D5w 25,000 UNITS 25,000 UNITS/250 ML IV.SOLN. 16 UNITS IV (11:15)
[2020-05-17 11:35] LABS: Bedside Glucose 209 mg/dL (70-110)
[2020-05-17] MEDS: Propofol 10MG/Ml 1,000 MG/100 ML Bottle 19.2 MG CONT INF ×2 (13:00→15:30)
--- NOTE | 2020-05-17 14:08 | PN.ID_ITS ---
Patient Problems: Active and Suspected Problems Hyperglycemia due to diabetes mellitus (Acute) COVID-19 (Acute) Hypoxemia (Acute) Pulmonary embolism (Acute) Sepsis (Acute) Shortness of breath (Acute) Intraperitoneal bleeding (Suspected) Subjective: No fever, on vent - Physical Exam Vitals/I&O's: Vital Signs Temp Pulse Resp BP Pulse Ox 99.5 F H 65 14 126/50 H 93 05/17/20 14:00 05/17/20 14:00 05/17/20 14:00 05/17/20 14:00 05/17/20 14:00 Oxygen Flow Rate (L/min) 60 Oxygen Delivery Method Mechanical Ventilator Weight: 128 kg Body Mass Index (BMI) 42.2 Finger Stick Blood Glucose 161 Intake and Output for Last 24 Hours 05/15/20 05/16/20 05/17/20 23:59 23:59 23:59 Intake Total 3740.03 / 3776.53 2385.52 / 2406.82 1602.99 / 1602.99 Output Total 2575 / 2575 1780 / 1780 900 / 900 Balance 1165.03 / 1201.53 605.52 / 626.82 702.99 / 702.99 General: No apparent distress Lungs: Diminished Cardiovascular: Regular rate, Regular Rhythm Abdomen: Soft, Non Tender, Non-Distended Skin: No rashes Microbiology Past 72 Hours 05/15/20 15:00 Sputum, Induced/Lukens Gram Stain - Final 05/15/20 15:00 Sputum, Induced/Lukens Respiratory Culture - Preliminary Appears to be normal respiratory manasa. Further studies to follow. 05/15/20 06:15 Stool Stool Occult Blood (GERMÁN) - Final Occult Blood Positive Laboratory Results 05/16/20 16:48: POC Glucose 298 H 05/16/20 17:30: Hgb 12.4 L, Hct 38.4 L 05/16/20 17:30: PT 16.1 H, INR 1.4, APTT 27.9 05/16/20 23:03: POC Glucose 217 H 05/17/20 03:30: WBC 5.8, RBC 3.82 L, Hgb 11.9 L, Hct 36.3 L, MCV 95.0 H, MCH 31.2, MCHC 32.8, RDW Std Deviation 49.1 H, RDW Coeff of Taras 14.1, Plt Count 56 L , MPV 11.5, Immature Gran % (Auto) 0.700, Neut % (Auto) 80.9 H, Lymph % (Auto) 9.3 L, [place] % (Auto) 7.2, Eos % (Auto) 1.7, Baso % (Auto) 0.2, Absolute Neuts (auto) 4.7, Absolute Lymphs (auto) 0.54 L, Nucleated RBC % 0 05/17/20 03:30: Sodium 142, Potassium 5.3 H, Chloride 106, Carbon Dioxide 34.0 H , Anion Gap 2 L, BUN 56 H, Creatinine 0.74, Estim Creat Clear Calc 61.14, Est GFR (MDRD) Af Amer 133, Est GFR (MDRD) Non-Af 110, BUN/Creatinine Ratio 75.4 H, Glucose 228 H, Calcium 8.0 L, Total Bilirubin 0.90, AST 68 H, ALT 105 H, Alkaline Phosphatase 168 H, Total Protein 5.4 L, Albumin 1.4 L, Globulin 4.0, Albumin/Globulin Ratio 0.4 L 05/17/20 05:46: POC Glucose 238 H 05/17/20 11:08: POC Glucose 209 H Current Medications Acetaminophen (Acetaminophen 650 Mg/20 Ml Udc) 650 mg GT Q6H PRN PRN PRN Reason: Pain Score 1-10/Temp > 100.7 F Al Hydroxide/Mg Hydroxide (Mag Hydrox/Al Hydrox/Simeth 30 Ml Udc) 30 ml GT Q6H PRN PRN PRN Reason: Gastric Burning Albuterol Sulfate (Albuterol Ih 8.5 Gm (Proair) Inhaler (200 Puffs)) 2.5 puff INHALATION Q2H PRN PRN PRN Reason: Shortness of Breath/Wheezing Last Admin: 05/09/20 18:57 Dose: 2.5 puff Documented by: Atorvastatin Calcium (Atorvastatin Calcium 20 Mg Tablet) 20 mg GT QHS KEERTHI Last Admin: 05/16/20 21:11 Dose: 20 mg Documented by: Calamine/Phenol (Menthol/Lanolin/Calamine/Znox 113 Gm Tube) 1 applic TOPICAL TID KEERTHI; Protocol Chlorhexidine Gluconate (Chlorhexidine 15 Ml) 15 ml PO BID KEERTHI Last Admin: 05/17/20 08:29 Dose: 15 ml Documented by: Chlorhexidine Gluconate (Chlorhexidine Gluc 2% Cloth 1 Each Towelette) 1 each TOPICAL DAILY KEERTHI Last Admin: 05/16/20 23:33 Dose: 1 each Documented by: Cholecalciferol (Cholecalciferol (Vit D3) 1,000 Unit (25mcg)) 1,000 unit GT BID KEERTHI Last Admin: 05/17/20 08:32 Dose: 1,000 unit Documented by: Cyanocobalamin (Cyanocobalamin 500 Mcg Tablet) 1,000 mcg GT DAILY KEERTHI Last Admin: 05/17/20 08:32 Dose: 1,000 mcg Documented by: Dexamethasone (Dexamethasone 4 Mg Tablet) 6 mg GT DAILY KEERTHI Stop: 05/21/20 10:01 Last Admin: 05/17/20 08:31 Dose: 6 mg Documented by: Dextrose (Dextrose 50%-Water 25 Gm/50 Ml Disp.Syrin) 0 gm IV X1 PRN; Protocol PRN Reason: Hypoglycemia Last Admin: 05/11/20 03:54 Dose: 12.5 gm Documented by: Glucagon (Glucagon 1 Mg/Ml Syringe) 1 mg IM .X1 PRN PRN Reason: Hypoglycemia Heparin Sodium (Porcine) (Heparin Injection (Vial) 5,000 Unit/Ml Vial) 0 unit IV UD PRN; Protocol PRN Reason: dose adjustment Sodium Chloride () 250 mls @ 15 mls/hr IV .[id number] PRN PRN Reason: Saline Flush Last Infusion: 05/17/20 11:55 Dose: 0 mls/hr Documented by: Sodium Chloride () 250 mls @ 15 mls/hr IV .[id number] PRN PRN Reason: Additional IVPB Infusion Propofol (Diprivan) 1,000 mg in 100 mls @ 7.68 mls/hr CONT INF .Q12H KEERTHI; Protocol Last Titration: 05/17/20 14:00 Dose: 25 mcg/kg/min, 19.2 mls/hr Documented by: Fentanyl Citrate 1,000 mcg/ (Sodium Chloride) 100 mls @ 5 mls/hr CONT INF .Q20H KEERTHI; Protocol Last Titration: 05/17/20 14:00 Dose: 175 mcg/hr, 17.5 mls/hr Documented by: Enteral Nutritional Formula (Vital High Protein) 1,000 mls @ 65 mls/hr GT .[id number] KEERTHI Last Admin: 05/16/20 21:15 Dose: 65 mls/hr Documented by: Pantoprazole Sodium 40 mg/ (Sodium Chloride) 110 mls @ 330 mls/hr IV Q12 REPLACED BY [facility] Last Infusion: 05/17/20 09:54 Dose: Infused Documented by: Heparin Sodium/Dextrose () 25,000 units in 250 mls @ 16 mls/hr IV .[id number] REPLACED BY [facility]; Protocol Last Admin: 05/17/20 11:15 Dose: 1,600 units/hr, 16 mls/hr Documented by: Insulin Glargine (Insulin Glargine 100 Units/Ml Pen) 120 units SC BID@0000,1200 REPLACED BY [facility] Last Admin: 05/17/20 11:18 Dose: 120 units Documented by: Insulin Human Lispro (Insulin Lispro 100 Unit/Ml Insuln.Pen) 0 unit SC Q6 REPLACED BY [facility]; Protocol Last Admin: 05/17/20 11:18 Dose: 3 u Documented by: Magnesium Hydroxide (Magnesium Hydroxide 30 Ml Udc) 30 ml GT DAILY PRN PRN PRN Reason: Constipation Last Admin: 05/15/20 05:54 Dose: 30 ml Documented by: Melatonin (Melatonin 3 Mg Tablet) 3 mg PO QHS PRN PRN PRN Reason: INSOMNIA Last Admin: 05/11/20 21:42 Dose: 3 mg Documented by: Nitroglycerin (Nitroglycerin (Inpatient Use) 0.4 Mg Tab.Subl) 0.4 mg SUBLINGUAL Q5M PRN PRN Reason: CARDIAC/CHEST PAIN Ondansetron HCl (Ondansetron 4 Mg/2 Ml Vial) 4 mg IV Q8H PRN PRN PRN Reason: NAUSEA/VOMITING Last Admin: 05/11/20 09:14 Dose: 4 mg Documented by: Polyethylene Glycol (Polyethylene Glycol 3350 17 Gm Packet) 17 gm PO DAILY REPLACED BY [facility] Last Admin: 05/17/20 08:31 Dose: 17 gm Documented by: Prochlorperazine Edisylate (Prochlorperazine 10 Mg/2 Ml Vial) 5 mg IV Q4H PRN PRN PRN Reason: Breakthrough nausea/vomiting Senna/Docusate Sodium (Senna/Docusate Sodium 1 Tablet) 2 tablet GT BID REPLACED BY [facility] Last Admin: 05/17/20 08:32 Dose: 2 tablet Documented by: Sodium Chloride (0.9% Saline Lock 10 Ml Syringe) 10 - 40 ml IV UD PRN PRN Reason: SALINE FLUSH Last Admin: 05/17/20 08:32 Dose: 20 ml Documented by: Sodium Chloride (Sodium Chloride 0.65% 1 [place].Btl) 2 spray NASAL TID PRN PRN PRN Reason: NASAL DRYNESS Last Admin: 05/06/20 21:47 Dose: 2 spray Documented by: Medical Necessity - Tobacco Use Smoking Status: Never smoker Route of nutrition/ use of supplements: [] Nutritional Intake: [] IV Site: [] Rao Catheter: [] - Assessment/Plan Antibiotics: [] Assessment/Plan: [] Active and Suspected Problems Hyperglycemia due to diabetes mellitus (Acute) COVID-19 (Acute) Hypoxemia (Acute) Pulmonary embolism (Acute) Sepsis (Acute) Shortness of breath (Acute) Intraperitoneal bleeding (Suspected) covid with hypoxia and PEs - sx started 04/23, (+) covid as an outpt. On dex, anticoagulation, and completed remdesivir. 1 of 2 bcx with CoNS, consistent with contaminant. Sputum with haemophilus and strep, treated with 7 days of ceftriaxone. Now intubated 2/3, sputum cx neg so far. O2 improved. Extended course of dex. Will follow
[2020-05-17] MEDS: Vital High Protein 1,000 ML 65 ML GT (15:08)
[2020-05-17 17:51] LABS: Bedside Glucose 260 mg/dL (70-110)
[2020-05-17] MEDS: Nystatin Powder 15gm Bottle 1 APPLIC TOPICAL (21:38)
[2020-05-17] MEDS: Atorvastatin Calcium 20 MG Tablet GT (21:39)
[2020-05-18] VITALS (40 sets, daily range): BP systolic 84–137; BP diastolic 43–69; PULSE 58–85; RESP 11–24; TEMP 37.2–37.6; O2SAT 88–98
[2020-05-18] MEDS: Insulin Lispro 100 UNIT/ML INSULN.PEN SC ×4 (00:37→17:30)
[2020-05-18] MEDS: Propofol 10MG/Ml 1,000 MG/100 ML Bottle 15.4 MG CONT INF ×2 (02:15→05:40)
[2020-05-18 04:56] LABS: Absolute Lymphocyte Count 0.62 X10^3/uL (0.83-4.51); Absolute Neutrophil Count 5.6 X10^3/uL (2.0-7.7); Basophil# 0.01 X10^3/uL; Basophil% 0.1 % (0-1); Eosinophil# 0.12 X10^3/uL; Eosinophils% 1.7 % (0-5); Hematocrit 37.9 % (40-54); Hemoglobin 12.4 g/dL (13.0-16.5); Lymphocyte # 0.62 X10^3/ul (4.0); Lymphocyte % 8.9 % (19-41); Mean Corp Hgb Conc 32.7 g/dL (32-36); Mean Corpuscular Hgb 31.2 pg (27.0-32.0); Mean Corpuscular Volume 95.2 fL (80-94); Mean Platelet Vol. 11.9 fl (6.2-12.0); Monocyte# 0.49 X10^3/uL; Monocyte% 7.1 % (0-10); NRBC Flagged by Analyzer 0 % (0-5); Neutrophil # 5.62 X10^3/uL (2.7-7.7); Neutrophil % 80.9 % (47-70); POSITIVE COUNT YES; Platelet Count 58 K/mm3 (150-450); RBC Distribution Width CV 14.2 % (11.6-14.6); RBC Distribution Width SD 49.3 fl (35.1-43.9); Red Blood Count 3.98 M/mm3 (4.6-6.2)
[2020-05-18] MEDS: TITRATION PARAMETER CHANGE 1 EACH IV (05:09)
[2020-05-18 05:12] LABS: ALB/GLOB Ratio 0.3 RATIO (0.9-2.4); AST(SGOT) 66 U/L (15-37); Alanine Aminotransfer ALT/SGPT 103 U/L (16-61); Albumin, Serum 1.3 g/dL (3.2-5.0); Alkaline Phosphatase 175 U/L (45-117); Anion Gap 2 (5-15); BUN 50 mg/dL (7-18); Calcium,Total 7.7 mg/dL (8.5-10.1); Chloride 106 mmol/L (98-107); EST Glomerular Filtration Rate 117 mL/min (>60); Est Glom Filt Rate - Afr Amer 142 mL/min (>60); Estimated Creatinine Clearance 61.14 ml/min; Globulin 4.1 g/dL (2.2-4.2); Glucose 197 mg/dL (74-106); Potassium 4.8 mmol/L (3.5-5.1); Protein, Total 5.4 g/dL (6.4-8.2); Sodium Level 141 mmol/L (136-145)
[2020-05-18] MEDS: Menthol/Lanolin/Calamine/Znox 113 GM Tube 1 APPLIC TOPICAL ×3 (06:00→21:15)
[2020-05-18] MEDS: Nystatin Powder 15gm Bottle 1 APPLIC TOPICAL ×3 (06:00→21:16)
--- NOTE | 2020-05-18 06:01 | PN_ITS ---
Subjective: The patient was seen and examined at the bedside this morning. Events from the last 24 hours have been reviewed. The patient is currently afebrile, hemodynamically stable and maintaining appropriate oxygen saturations on assist control mode of mechanical ventilation with an FiO2 requirement of 55% and PEEP of 5. The patient did have some yellow secretions noted from his endotracheal tube overnight. Attempt to reinstitute systemic anticoagulation with continuous heparin yesterday was unsuccessful as the patient had increased bloody GI outpu t. Therefore, all forms of systemic anticoagulation have been discontinued at this time, despite the patient's known recent diagnosis of pulmonary embolism. Objective: The patient's most recent lab work, culture data and imaging studies have all been personally reviewed. Sputum culture was positive for possible Haemophilus and group B streptococcus. General: - - Remains intubated, sedated and mechanically ventilated. HEENT: Atraumatic, PERRLA, Normocephalic Oral: No Gingival or Mucosal Lesions/ Ulcerations, - - Stable endotracheal and OG tubes. Neck: Supple, No Nodes, Trachea Midline Lungs: Diminished, - - Scant rhonchi Cardiovascular: Regular rate, Regular Rhythm Abdomen: Bowel Sounds Present, Soft, Non Tender, Obese Extremities: No clubbing, No cyanosis, No edema Skin: - - No significant change from previous Musculoskeletal: No Tenderness to Palpation of Joints or Extremities, No Muscle Wasting Lymphatic: No Cervical, Supraclavicular, or Inguinal Adenopathy Neurological: - - No focal neurological deficits. Remains sedated with a RASS of +1. Vital Signs Temp Pulse Resp BP Pulse Ox 99.3 F H 72 12 110/55 L 93 05/18/20 05:00 05/18/20 05:00 05/18/20 05:00 05/18/20 05:00 05/18/20 05:00 Oxygen Flow Rate (L/min) 60 Oxygen Delivery Method Mechanical Ventilator Weight: 283 lb 8.231 oz Body Mass Index (BMI) 42.2 Finger Stick Blood Glucose 161 Intake and Output for Last 24 Hours 05/16/20 05/17/20 05/18/20 23:59 23:59 23:59 Intake Total 2385.52 / 2406.82 2541.29 / 3128.19 830.61 / 830.61 Output Total 1780 / 1780 1255 / 1605 350 / 350 Balance 605.52 / 626.82 1286.29 / 1523.19 480.61 / 480.61 Labs (Last 48 Hours) 05/16/20 05/16/20 05/16/20 06:13 11:13 16:48 WBC RBC Hgb Hct MCV MCH MCHC RDW Std Deviation RDW Coeff of Taras Plt Count MPV Immature Gran % (Auto) Neut % (Auto) Lymph % (Auto) [place] % (Auto) Eos % (Auto) Baso % (Auto) Absolute Neuts (auto) Absolute Lymphs (auto) Nucleated RBC % PT INR APTT Sodium Potassium Chloride Carbon Dioxide Anion Gap BUN Creatinine Estim Creat Clear Calc Est GFR (MDRD) Af Amer Est GFR (MDRD) Non-Af BUN/Creatinine Ratio Glucose Calcium Total Bilirubin AST ALT Alkaline Phosphatase Total Protein Albumin Globulin Albumin/Globulin Ratio POC Glucose 322 H 319 H 298 H 05/16/20 05/16/20 05/16/20 17:30 17:30 23:03 WBC RBC Hgb 12.4 L Hct 38.4 L MCV MCH MCHC RDW Std Deviation RDW Coeff of Taras Plt Count MPV Immature Gran % (Auto) Neut % (Auto) Lymph % (Auto) [place] % (Auto) Eos % (Auto) Baso % (Auto) Absolute Neuts (auto) Absolute Lymphs (auto) Nucleated RBC % PT 16.1 H INR 1.4 APTT 27.9 Sodium Potassium Chloride Carbon Dioxide Anion Gap BUN Creatinine Estim Creat Clear Calc Est GFR (MDRD) Af Amer Est GFR (MDRD) Non-Af BUN/Creatinine Ratio Glucose Calcium Total Bilirubin AST ALT Alkaline Phosphatase Total Protein Albumin Globulin Albumin/Globulin Ratio POC Glucose 217 H 05/17/20 05/17/20 05/17/20 03:30 03:30 05:46 WBC 5.8 RBC 3.82 L Hgb 11.9 L Hct 36.3 L MCV 95.0 H MCH 31.2 MCHC 32.8 RDW Std Deviation 49.1 H RDW Coeff of Taras 14.1 Plt Count 56 L MPV 11.5 Immature Gran % (Auto) 0.700 Neut % (Auto) 80.9 H Lymph % (Auto) 9.3 L [place] % (Auto) 7.2 Eos % (Auto) 1.7 Baso % (Auto) 0.2 Absolute Neuts (auto) 4.7 Absolute Lymphs (auto) 0.54 L Nucleated RBC % 0 PT INR APTT Sodium 142 Potassium 5.3 H Chloride 106 Carbon Dioxide 34.0 H Anion Gap 2 L BUN 56 H Creatinine 0.74 Estim Creat Clear Calc 61.14 Est GFR (MDRD) Af Amer 133 Est GFR (MDRD) Non-Af 110 BUN/Creatinine Ratio 75.4 H Glucose 228 H Calcium 8.0 L Total Bilirubin 0.90 AST 68 H ALT 105 H Alkaline Phosphatase 168 H Total Protein 5.4 L Albumin 1.4 L Globulin 4.0 Albumin/Globulin Ratio 0.4 L POC Glucose 238 H 05/17/20 05/17/20 05/18/20 11:08 17:30 04:30 WBC 7.0 RBC 3.98 L Hgb 12.4 L Hct 37.9 L MCV 95.2 H MCH 31.2 MCHC 32.7 RDW Std Deviation 49.3 H RDW Coeff of Taras 14.2 Plt Count 58 L MPV 11.9 Immature Gran % (Auto) 1.300 H Neut % (Auto) 80.9 H Lymph % (Auto) 8.9 L [place] % (Auto) 7.1 Eos % (Auto) 1.7 Baso % (Auto) 0.1 Absolute Neuts (auto) 5.6 Absolute Lymphs (auto) 0.62 L Nucleated RBC % 0 PT INR APTT Sodium Potassium Chloride Carbon Dioxide Anion Gap BUN Creatinine Estim Creat Clear Calc Est GFR (MDRD) Af Amer Est GFR (MDRD) Non-Af BUN/Creatinine Ratio Glucose Calcium Total Bilirubin AST ALT Alkaline Phosphatase Total Protein Albumin Globulin Albumin/Globulin Ratio POC Glucose 209 H 260 H 05/18/20 04:30 WBC RBC Hgb Hct MCV MCH MCHC RDW Std Deviation RDW Coeff of Taras Plt Count MPV Immature Gran % (Auto) Neut % (Auto) Lymph % (Auto) [place] % (Auto) Eos % (Auto) Baso % (Auto) Absolute Neuts (auto) Absolute Lymphs (auto) Nucleated RBC % PT INR APTT Sodium 141 Potassium 4.8 Chloride 106 Carbon Dioxide 33.0 H Anion Gap 2 L BUN 50 H Creatinine 0.70 Estim Creat Clear Calc 61.14 Est GFR (MDRD) Af Amer 142 Est GFR (MDRD) Non-Af 117 BUN/Creatinine Ratio 71.0 H Glucose 197 H Calcium 7.7 L Total Bilirubin 1.10 H AST 66 H ALT 103 H Alkaline Phosphatase 175 H Total Protein 5.4 L Albumin 1.3 L Globulin 4.1 Albumin/Globulin Ratio 0.3 L POC Glucose Microbiology 05/15/20 15:00 Sputum, Induced/Lukens Gram Stain - Final 05/15/20 15:00 Sputum, Induced/Lukens Respiratory Culture - Preliminary Appears to be normal respiratory manasa. Further studies to follow. Clinical Impression(s) from Imaging Studies Chest X-Ray 05/03/20 08:55 IMPRESSION: Minimal increased markings at the left lung base with blunting of left costophrenic angle. There has been no change since prior study. Electronically Signed: Casimiro Marie MD at 9:09 EST , Service support , Chest CTA 05/03/20 09:36 IMPRESSION: Multiple bilateral pulmonary emboli involving branches of the lower lobe pulmonary arteries. Multiple bilateral pulmonary infiltrates as described. Splenomegaly. Electronically Signed: Casimiro Marie MD at 10:41 EST , Service support , Chest X-Ray 05/10/20 13:01 IMPRESSION: Patchy bilateral pulmonary infiltrates in a peripheral distribution worse in the left hemithorax. Findings are in keeping with Covid. Electronically Signed: Casimiro Marie MD at 13:48 EST , Service support , Chest X-Ray 05/12/20 09:35 IMPRESSION: The tip of the endotracheal tube is at 4.5 cm proximal to the adonis. Stable bilateral patchy pulmonary infiltrates in a peripheral distribution. Electronically Signed: Casimiro Marie MD at 10:45 EST , Service support , Chest X-Ray 05/12/20 16:43 IMPRESSION: 1. Interval placement of left-sided PICC line with the tip within the mid SVC. No pneumothorax. 2. No significant interval change of cardiopulmonary status. at 1824 Reported and signed by: Keagan Hensley MD Electronically Signed: Keagan Hensley MD at 18:23 EST Tel , Service support , Chest X-Ray 05/14/20 05:17 IMPRESSION: Support apparatus as above. Diffuse pulmonary infiltrates. Nonspecific however can be seen with infectious inflammatory process. Findings can be seen with an atypical viral infectious process given patient''s history. Recommend follow-up imaging to resolution. No significant change in the appearance of the lungs. Electronically Signed: Dennis Baldwin MD at 6:32 EST Tel , Service support , Medical Necessity - Tobacco Use Smoking Status: Never smoker Assessment/Plan All Active Problems Hyperglycemia due to diabetes mellitus (Acute) COVID-19 (Acute) Hypoxemia (Acute) Pulmonary embolism (Acute) Sepsis (Acute) History of cholecystectomy (Resolved) Shortness of breath (Acute) RECOMMENDATIONS: 1. Continue patient on assist control mode of mechanical ventilation and wean FiO2 and PEEP to maintain saturations at or above 90%. 2. Continue Decadron as ordered. 3. Stop all forms of systemic anticoagulation however concerns for GI blood loss. 4. Continue PPI therapy twice daily. 5. Continue tube feeds as tolerated. 6. Continue Lantus and sliding scale insulin coverage. 7. Start scheduled IV Lasix as tolerated by hemodynamics and renal function. 8. Ongoing goals of care discussions with the patient's . IMPRESSIONS: 1. Acute hypoxemic respiratory failure secondary to COVID-19 pneumonia and bilateral pulmonary emboli The patient was initially admitted to the hospital and diagnosed with COVID-19 pneumonia and bilateral pulmonary emboli. Over the course of his hospitalization, the patient continued to decompensate from a respiratory perspective, requiring increasing amounts of supplemental oxygen. The patient eventually required intubation on May 12. Plan to continue the patient on assist control mode of mechanical ventilation and wean FiO2 and PEEP to maintain saturations at or above 90%. The patient has completed a treatment course of remdesivir and will remain on Decadron. The patient was also treated with antibiotics given Haemophilus isolated from sputum culture. Although the patient was initially started on Eliquis, his systemic anticoagulation was discontinued over concerns for possible lower GI bleeding. 2. Melena/occult blood positive stools Plan to continue current supportive measures with twice daily PPI therapy. The patient is unable to tolerate any form of systemic anticoagulation without developing increased GI blood loss. Continue to monitor H&H daily. No current indication for transfusion of blood products. 3. Diabetes mellitus/hypertension/hyperlipidemia/BPH/obesity/paroxysmal atrial fibrillation Complicates care, management, recovery and prognosis. Continue home medications as indicated. Physical therapy to work with the patient as tolerated. Continue Lantus and sliding scale insulin coverage. TIME: 35 minutes of critical care time, independent of procedures, was spent addressing the patient's acute hypoxemic respiratory failure, COVID-19 pneumonia, pulmonary emboli, possible lower GI bleeding, review of all data and collaboration with the care team. [id number]) [phone] [id number] Critical care first hour
[2020-05-18 06:06] LABS: Bedside Glucose 206 mg/dL (70-110)
[2020-05-18 06:55] LABS: Bedside Glucose 167 mg/dL (70-110)
--- NOTE | 2020-05-18 07:10 | PCM.PN.HOSP ---
Patient Problems: Active and Suspected Problems Hyperglycemia due to diabetes mellitus (Acute) COVID-19 (Acute) Hypoxemia (Acute) Pulmonary embolism (Acute) Sepsis (Acute) Shortness of breath (Acute) Intraperitoneal bleeding (Suspected) Subjective: Patient remains afebrile with continued mechanical ventilation with FiO2 60% currently on PEEP of 5. Patient with ongoing toleration of tube feeds. Patient was continued propofol and fentanyl. Patient trialed yesterday on heparin drip however this was unsuccessful as he had bloody output 5 the OG therefore patient currently not anticoagulated with history of pulmonary embolism currently. Patient no obvious evidence of fevers, chills, nausea, emesis, abdominal pain, chest pain or dyspnea; however, intubated and sedated thus questioning and examination limited. Objective: Physical Examination: General: Sedated, intubated, no obvious distress, laying in the ICU bed, NAD currently, does not awaken to stimuli. Skin: normal color, turgor, no icterus, cyanosis. HEENT: AT/NC, EOM unable to be assessed given sedated status as noted, PERRLA, mildly dry MM, ET tube and OG tube in place. Lungs: Diminished breath sounds, greater bases, symmetric rise, intubated, sedated, no obvious rales, rhonchi or wheezing currently. Heart: Regular rate and rhythm; no gallop, rub audible. Abdomen: soft, overly obese, NTTP, ND, mildly hyperactive bowel sounds. Extremities: no cyanosis or clubbing, mild bilateral ankle and hand nonpitting edema. Neurological: Patient sedated, intubated, not alert or oriented, cognitive function not baseline intact, pupils equally reactive to light and accomodation; cranial nerves unable to be assessed given sedated status, not moving extremities to withdrawal, strength accordingly severely globally decreased. Psychiatric: affect appears flat, no acute evidence of depressive or anxiety feelings. Vitals/I&O's: Vital Signs Temp Pulse Resp BP Pulse Ox 99.3 F H 76 18 107/45 L 91 05/18/20 06:00 05/18/20 07:01 05/18/20 07:01 05/18/20 06:00 05/18/20 07:01 Oxygen Flow Rate (L/min) 60 Oxygen Delivery Method Mechanical Ventilator Weight: 283 lb 8.231 oz Body Mass Index (BMI) 42.2 Finger Stick Blood Glucose 161 Intake and Output for Last 24 Hours 05/16/20 05/17/20 05/18/20 23:59 23:59 23:59 Intake Total 2385.52 / 2406.82 2541.29 / 3128.19 1275.51 / 1275.51 Output Total 1780 / 1780 1255 / 1605 750 / 750 Balance 605.52 / 626.82 1286.29 / 1523.19 525.51 / 525.51 Microbiology Past 72 Hours 05/15/20 15:00 Sputum, Induced/Lukens Gram Stain - Final 05/15/20 15:00 Sputum, Induced/Lukens Respiratory Culture - Preliminary Appears to be normal respiratory manasa. Further studies to follow. 05/15/20 06:15 Stool Stool Occult Blood (GERMÁN) - Final Occult Blood Positive Laboratory Results 05/17/20 11:08: POC Glucose 209 H 05/17/20 17:30: POC Glucose 260 H 05/18/20 00:20: POC Glucose 206 H 05/18/20 04:30: WBC 7.0, RBC 3.98 L, Hgb 12.4 L, Hct 37.9 L, MCV 95.2 H, MCH 31.2, MCHC 32.7, RDW Std Deviation 49.3 H, RDW Coeff of Taras 14.2, Plt Count 58 L, MPV 11.9, Immature Gran % (Auto) 1.300 H, Neut % (Auto) 80.9 H, Lymph % (Auto) 8.9 L, [place] % (Auto) 7.1, Eos % (Auto) 1.7, Baso % (Auto) 0.1, Absolute Neuts (auto) 5.6, Absolute Lymphs (auto) 0.62 L, Nucleated RBC % 0 05/18/20 04:30: Sodium 141, Potassium 4.8, Chloride 106, Carbon Dioxide 33.0 H, Anion Gap 2 L, BUN 50 H, Creatinine 0.70, Estim Creat Clear Calc 61.14, Est GFR (MDRD) Af Amer 142, Est GFR (MDRD) Non-Af 117, BUN/Creatinine Ratio 71.0 H, Glucose 197 H, Calcium 7.7 L, Total Bilirubin 1.10 H, AST 66 H, ALT 103 H, Alkaline Phosphatase 175 H, Total Protein 5.4 L, Albumin 1.3 L, Globulin 4.1, Albumin/Globulin Ratio 0.3 L 05/18/20 05:58: POC Glucose 167 H Current Medications Acetaminophen (Acetaminophen 650 Mg/20 Ml Udc) 650 mg GT Q6H PRN PRN PRN Reason: Pain Score 1-10/Temp > 100.7 F Al Hydroxide/Mg Hydroxide (Mag Hydrox/Al Hydrox/Simeth 30 Ml Udc) 30 ml GT Q6H PRN PRN PRN Reason: Gastric Burning Albuterol Sulfate (Albuterol Ih 8.5 Gm (Proair) Inhaler (200 Puffs)) 2.5 puff INHALATION Q2H PRN PRN PRN Reason: Shortness of Breath/Wheezing Last Admin: 05/09/20 18:57 Dose: 2.5 puff Documented by: Atorvastatin Calcium (Atorvastatin Calcium 20 Mg Tablet) 20 mg GT QHS [facility] Last Admin: 05/17/20 21:39 Dose: 20 mg Documented by: Calamine/Phenol (Menthol/Lanolin/Calamine/Znox 113 Gm Tube) 1 applic TOPICAL TID [facility] [place]; Protocol Last Admin: 05/18/20 06:00 Dose: 1 applicatio Documented by: Chlorhexidine Gluconate (Chlorhexidine 15 Ml) 15 ml PO BID [facility] [place] Last Admin: 05/17/20 21:36 Dose: 15 ml Documented by: Chlorhexidine Gluconate (Chlorhexidine Gluc 2% Cloth 1 Each Towelette) 1 each TOPICAL DAILY [facility] [place] Last Admin: 05/16/20 23:33 Dose: 1 each Documented by: Cholecalciferol (Cholecalciferol (Vit D3) 1,000 Unit (25mcg)) 1,000 unit GT BID [facility] [place] Last Admin: 05/17/20 21:39 Dose: 1,000 unit Documented by: Cyanocobalamin (Cyanocobalamin 500 Mcg Tablet) 1,000 mcg GT DAILY [facility] [place] Last Admin: 05/17/20 08:32 Dose: 1,000 mcg Documented by: Dexamethasone (Dexamethasone 4 Mg Tablet) 6 mg GT DAILY [facility] [place] Stop: 05/21/20 10:01 Last Admin: 05/17/20 08:31 Dose: 6 mg Documented by: Dextrose (Dextrose 50%-Water 25 Gm/50 Ml Disp.Syrin) 0 gm IV X1 PRN; Protocol PRN Reason: Hypoglycemia Last Admin: 05/11/20 03:54 Dose: 12.5 gm Documented by: Glucagon (Glucagon 1 Mg/Ml Syringe) 1 mg IM .X1 PRN PRN Reason: Hypoglycemia Sodium Chloride () 250 mls @ 15 mls/hr IV .[id number] PRN PRN Reason: Saline Flush Last Infusion: 05/18/20 00:50 Dose: 0 mls/hr Documented by: Sodium Chloride () 250 mls @ 15 mls/hr IV .[id number] PRN PRN Reason: Additional IVPB Infusion Propofol (Diprivan) 1,000 mg in 100 mls @ 7.716 mls/hr CONT INF .Q12H [facility]; Protocol Last Titration: 05/18/20 06:00 Dose: 20 mcg/kg/min, 15.4 mls/hr Documented by: Fentanyl Citrate 1,000 mcg/ (Sodium Chloride) 100 mls @ 5 mls/hr CONT INF .Q20H [facility]; Protocol Last Titration: 05/18/20 06:00 Dose: 175 mcg/hr, 17.5 mls/hr Documented by: Enteral Nutritional Formula (Vital High Protein) 1,000 mls @ 65 mls/hr GT .[id number] [facility] Last Admin: 05/17/20 15:08 Dose: 65 mls/hr Documented by: Pantoprazole Sodium 40 mg/ (Sodium Chloride) 110 mls @ 330 mls/hr IV Q12 [facility] [place] Last Infusion: 05/17/20 22:18 Dose: Infused Documented by: Insulin Glargine (Insulin Glargine 100 Units/Ml Pen) 120 units SC BID@0000,1200 [facility] Last Admin: 05/18/20 00:38 Dose: 120 units Documented by: Insulin Human Lispro (Insulin Lispro 100 Unit/Ml Insuln.Pen) 0 unit SC Q6 [facility]; Protocol Last Admin: 05/18/20 05:59 Dose: 3 u Documented by: Magnesium Hydroxide (Magnesium Hydroxide 30 Ml Udc) 30 ml GT DAILY PRN PRN PRN Reason: Constipation Last Admin: 05/15/20 05:54 Dose: 30 ml Documented by: Melatonin (Melatonin 3 Mg Tablet) 3 mg PO QHS PRN PRN PRN Reason: INSOMNIA Last Admin: 05/11/20 21:42 Dose: 3 mg Documented by: Nitroglycerin (Nitroglycerin (Inpatient Use) 0.4 Mg Tab.Subl) 0.4 mg SUBLINGUAL Q5M PRN PRN Reason: CARDIAC/CHEST PAIN Nystatin (Nystatin Powder 15gm Bottle) 1 applic TOPICAL TID [facility] [place]; Protocol Last Admin: 05/18/20 06:00 Dose: 1 applicatio Documented by: Ondansetron HCl (Ondansetron 4 Mg/2 Ml Vial) 4 mg IV Q8H PRN PRN PRN Reason: NAUSEA/VOMITING Last Admin: 05/11/20 09:14 Dose: 4 mg Documented by: Polyethylene Glycol (Polyethylene Glycol 3350 17 Gm Packet) 17 gm PO DAILY [facility] [place] Last Admin: 05/17/20 08:31 Dose: 17 gm Documented by: Prochlorperazine Edisylate (Prochlorperazine 10 Mg/2 Ml Vial) 5 mg IV Q4H PRN PRN PRN Reason: Breakthrough nausea/vomiting Senna/Docusate Sodium (Senna/Docusate Sodium 1 Tablet) 2 tablet GT BID [facility] [place] Last Admin: 05/17/20 21:39 Dose: 2 tablet Documented by: Sodium Chloride (0.9% Saline Lock 10 Ml Syringe) 10 - 40 ml IV UD PRN PRN Reason: SALINE FLUSH Last Admin: 05/17/20 17:33 Dose: 20 ml Documented by: Sodium Chloride (Sodium Chloride 0.65% 1 [place] Mascotte.Btl) 2 spray NASAL TID PRN PRN PRN Reason: NASAL DRYNESS Last Admin: 05/06/20 21:47 Dose: 2 spray Documented by: STROKE Vital Signs/Narrative: Vital Signs Temp Pulse Resp BP Pulse Ox 05/18/20 07:01 76 18 91 05/18/20 06:00 99.3 F H 75 15 107/45 L 91 05/18/20 05:00 99.3 F H 72 12 110/55 L 93 05/18/20 04:39 72 17 93 05/18/20 04:00 99.5 F H 73 15 97/51 L 92 Medical Necessity - Tobacco Use Smoking Status: Never smoker Assessment/Plan All Active Problems Hyperglycemia due to diabetes mellitus (Acute) COVID-19 (Acute) Hypoxemia (Acute) Pulmonary embolism (Acute) Sepsis (Acute) History of cholecystectomy (Resolved) Shortness of breath (Acute) The patient is a 69 y/o M w/ PMHx: Chronic Thrombocytopenia, Morbid Obesity, HTN, HLD, Diabetes mellitus type II, PAF, MARIELLE, BPH who presents to the [facility] ED on 05/03/20 with history of Covid diagnosis on 04/27/2020 per PCP office with worsening symptoms despite discharged home at that time on Decadron with progressively worsening dyspnea, headache, fatigue, fever, chills. 1. Acute hypoxic respiratory failure secondary to acute bilateral pneumonia and bilateral pulmonary emboli secondary to acute COVID-19 viral syndrome: Following admission patient with continued decompensation requiring eventual intubation 05/12/2020, evaluated by welt treater and infectious disease with completion of remdesivir regimen, continued on Decadron with plan to continue 10-day course, treated also initially with antibiotics for sputum culture with noted Haemophilus, transitioned to Eliquis from Pradaxa secondary to bilateral PE however significant concerns as noted with possible GI bleeding although hemoglobin had remained stable therefore discontinued, 05/17/2020 transitioned to heparin drip which failed with onset bloody output via OG however Hgb remained stable despite this onset. Continued sedation with vent management per welt treater, continue tube feeds currently at goal, continue both Lantus and insulin sliding scale coverage per tube feed protocols, 05/18/20 IV scheduled lasix intention per ICU. Family 05/17/2020 noting would likely defer trach or PEG if patient is unable to be extubated. 2. Acute GI bleed with melanotic stools noted to be occult blood positive: Continue patient on twice daily high-dose PPI, had been on Pradaxa prior to presentation with transition to Eliquis given noted bilateral PE however onset of concerning GI bleed therefore this had been discontinued, given significant presentation, high risk planned reinitiation anticoagulation with heparin drip 05/17/2020 with close monitoring with noted blood output via OG thus discontinued. Admission 05/03/2020 hemoglobin 13.6, 05/17/2020 11.9-->05/18/20 CBC w/ Hgb 12.4, Plts 58. 3. Acute on Chronic thrombocytopenia: Admission platelets 56, improved following anticoagulation hold however despite this hold trended down again with noted 05/17/2020 platelets 56, heparin drip trial as noted 05/17/20 failed, 05/18/20 CBC w/ plts 58, continue to closely monitor. Prior baseline platelets appeared primarily 60-80. 4. Elevated LFTs: Admission 05/03/2020 AST/ALT 26/28, alk phos 68 with eventual rise starting on 05/13/2020 with total bilirubin 1.40, AST/ALT 53/78, alk phos 119-->05/18/2020 total bilirubin 1.10, AST/ALT 66/103, alk phos 175, likely secondary to acute presentation as noted #1, continue to closely trend. 5. Diabetes mellitus type II with hyperglycemia secondary to #1 with steroid usage as noted: Hold oral home regimen, continue altered insulin regimen currently insulin glargine 120 units subcu twice daily, currently on tube feeds, continue accu checks w/ ISS per tube feed protocols. 6. PAF: Previously on Pradaxa, discontinued and transition to Eliquis upon presentation as noted with #1 however held given #2, currently attempting heparin drip with continued close monitoring as noted, not on rate or rhythm agent currently. 7. Hypertension: BPs remain low normal, outpatient normally on atenolol, losartan which were both held, resume if clinically appropriate. 8. Hyperlipidemia: We will continue patient statin therapy. 9. Morbid Obesity: Weight loss and lifestyle changes will be encouraged once patient becomes cognizant/extubated if appropriate, nutrition consulted and following as noted for tube feeds. 10. MARIELLE: Currently intubated and sedated as noted above. 11. GERD: Currently on IV PPI as noted above. 12. DVT prophylaxis: SCDs, heparin drip unsuccessful, not anticoagulated. 13. CODE STATUS: Full code currently however family reticent to perform trach and PEG therefore likely if unable to be extubated would have transition of CODE STATUS. Inpatient E&M: [id number] [facility] L3
[2020-05-18] MEDS: 0.9% Saline Lock 10 ML Syringe IV (08:22)
[2020-05-18] MEDS: Senna/Docusate Sodium 1 Tablet 2 TABLET GT (08:23)
[2020-05-18] MEDS: Chlorhexidine 15 ML PO ×2 (08:23→21:16)
[2020-05-18] MEDS: Furosemide 40 MG/4 ML Vial IV (08:24)
[2020-05-18] MEDS: dexAMETHasone 4 MG Tablet 6 MG GT (08:24)
[2020-05-18] MEDS: Cyanocobalamin 500 MCG Tablet 1000 MCG GT (08:24)
[2020-05-18] MEDS: CHLORHEXIDINE GLUC 2% CLOTH 1 EACH TOWELETTE TOPICAL (08:24)
[2020-05-18] MEDS: Vital High Protein 1,000 ML 65 ML GT ×2 (08:25→21:17)
[2020-05-18] MEDS: Propofol 10MG/Ml 1,000 MG/100 ML Bottle 11.6 MG CONT INF ×2 (12:19→18:54)
[2020-05-18 12:46] LABS: Bedside Glucose 158 mg/dL (70-110)
[2020-05-18 17:25] LABS: Bedside Glucose 191 mg/dL (70-110)
[2020-05-18] MEDS: Atorvastatin Calcium 20 MG Tablet GT (21:12)
[2020-05-19] VITALS (40 sets, daily range): BP systolic 88–180; BP diastolic 44–89; PULSE 53–108; RESP 11–32; TEMP 37.2–37.7; O2SAT 89–95
[2020-05-19] MEDS: Insulin Lispro 100 UNIT/ML INSULN.PEN SC ×3 (01:16→17:59)
[2020-05-19] MEDS: Propofol 10MG/Ml 1,000 MG/100 ML Bottle 15.4 MG CONT INF (01:20)
[2020-05-19 04:43] LABS: Absolute Lymphocyte Count 0.95 X10^3/uL (0.83-4.51); Absolute Neutrophil Count 4.5 X10^3/uL (2.0-7.7); Basophil# 0.01 X10^3/uL; Basophil% 0.2 % (0-1); Eosinophil# 0.12 X10^3/uL; Eosinophils% 1.9 % (0-5); Hematocrit 40.7 % (40-54); Hemoglobin 13.1 g/dL (13.0-16.5); Lymphocyte # 0.95 X10^3/ul (4.0); Lymphocyte % 15.4 % (19-41); Mean Corp Hgb Conc 32.2 g/dL (32-36); Mean Corpuscular Volume 96.2 fL (80-94); Mean Platelet Vol. 12.3 fl (6.2-12.0); Monocyte# 0.52 X10^3/uL; Monocyte% 8.4 % (0-10); NRBC Flagged by Analyzer 0 % (0-5); Neutrophil # 4.51 X10^3/uL (2.7-7.7); POSITIVE COUNT YES; RBC Distribution Width CV 14.4 % (11.6-14.6); RBC Distribution Width SD 49.9 fl (35.1-43.9); Red Blood Count 4.23 M/mm3 (4.6-6.2); White Blood Count 6.2 K/mm3 (4.4-11.0)
[2020-05-19 04:44] LABS: Differential Indicated SCAN CRITERIA MET; Platelet Count 45 K/mm3 (150-450)
[2020-05-19 04:46] LABS: Bedside Glucose 189 mg/dL (70-110)
[2020-05-19 05:04] LABS: Platelet Estimate ADEQUATE (ADEQ)
[2020-05-19 05:30] LABS: ALB/GLOB Ratio 0.3 RATIO (0.9-2.4); AST(SGOT) 73 U/L (15-37); Alanine Aminotransfer ALT/SGPT 106 U/L (16-61); Albumin, Serum 1.6 g/dL (3.2-5.0); Alkaline Phosphatase 202 U/L (45-117); Anion Gap 3 (5-15); BUN 51 mg/dL (7-18); BUN/Creat Ratio 62.7 RATIO (10-20); Calcium,Total 8.4 mg/dL (8.5-10.1); Chloride 107 mmol/L (98-107); Creatinine, Serum 0.81 mg/dL (0.70-1.30); EST Glomerular Filtration Rate 99 mL/min (>60); Est Glom Filt Rate - Afr Amer 120 mL/min (>60); Estimated Creatinine Clearance 75.48 ml/min; Globulin 4.8 g/dL (2.2-4.2); Glucose 203 mg/dL (74-106); Potassium 4.9 mmol/L (3.5-5.1); Protein, Total 6.4 g/dL (6.4-8.2); Sodium Level 143 mmol/L (136-145)
[2020-05-19] MEDS: Nystatin Powder 15gm Bottle 1 APPLIC TOPICAL ×3 (06:14→21:14)
[2020-05-19] MEDS: Menthol/Lanolin/Calamine/Znox 113 GM Tube 1 APPLIC TOPICAL ×3 (06:14→21:14)
[2020-05-19 06:20] LABS: Bedside Glucose 178 mg/dL (70-110)
[2020-05-19] MEDS: Propofol 10MG/Ml 1,000 MG/100 ML Bottle 23.1 MG CONT INF (06:30)
--- NOTE | 2020-05-19 06:38 | PCM.PN.INT ---
Subjective: The patient was seen and examined at the bedside this morning. Events from the last 24 hours have been reviewed. The patient is currently afebrile, hemodynamically stable and maintaining appropriate oxygen saturations on assist control mode of mechanical ventilation with an FiO2 requirement of 65%. The patient failed his spontaneous awakening trial this morning due to development of agitation and oxygen desaturation. The patient does continue to have maroon-colored stools, per nursing report. Platelet count continues to drop and was noted to be 45,000 this morning. Creatinine is stable. The patient is essentially overall net even for the hospitalization, according to I's and O's documented. Objective: The patient's most recent lab work, culture data and imaging studies have all been personally reviewed. Sputum culture was positive for possible Haemophilus and group B streptococcus. General: - - The patient remains intubated, sedated and mechanically ventilated. HEENT: Atraumatic, PERRLA, Normocephalic Oral: No Gingival or Mucosal Lesions/ Ulcerations, - - Stable endotracheal and OG tubes Neck: Supple, No Nodes, Trachea Midline Lungs: No rhonchi, No wheeze, No rales, Diminished Cardiovascular: Regular rate, Regular Rhythm, No murmurs Abdomen: Bowel Sounds Present, Soft, Non Tender, Obese Extremities: No clubbing, No cyanosis, No edema Skin: - - No significant change from previous Musculoskeletal: No Tenderness to Palpation of Joints or Extremities Lymphatic: No Cervical, Supraclavicular, or Inguinal Adenopathy Neurological: - - No focal neurological deficits. Remains sedated with a RASS of -1. Vital Signs Temp Pulse Resp BP Pulse Ox 99.8 F H 108 H 26 H 180/89 H 89 05/19/20 06:00 05/19/20 06:00 05/19/20 06:00 05/19/20 06:00 05/19/20 06:00 Oxygen Flow Rate (L/min) 60 Oxygen Delivery Method Mechanical Ventilator Weight: 283 lb 4.704 oz Body Mass Index (BMI) 42.2 Finger Stick Blood Glucose 161 Intake and Output for Last 24 Hours 05/17/20 05/18/20 05/19/20 23:59 23:59 23:59 Intake Total 2541.29 / 3128.19 3533.58 / 4008.98 754.50 / 754.50 Output Total 1255 / 1605 2350 / 2700 350 / 350 Balance 1286.29 / 1523.19 1183.58 / 1308.98 404.50 / 404.50 Labs (Last 48 Hours) 05/17/20 05/17/20 05/18/20 11:08 17:30 00:20 WBC RBC Hgb Hct MCV MCH MCHC RDW Std Deviation RDW Coeff of Taras Plt Count MPV Immature Gran % (Auto) Neut % (Auto) Lymph % (Auto) [place] % (Auto) Eos % (Auto) Baso % (Auto) Absolute Neuts (auto) Absolute Lymphs (auto) Nucleated RBC % Diff Path Review Platelet Estimate Sodium Potassium Chloride Carbon Dioxide Anion Gap BUN Creatinine Estim Creat Clear Calc Est GFR (MDRD) Af Amer Est GFR (MDRD) Non-Af BUN/Creatinine Ratio Glucose Calcium Total Bilirubin AST ALT Alkaline Phosphatase Total Protein Albumin Globulin Albumin/Globulin Ratio POC Glucose 209 H 260 H 206 H 05/18/20 05/18/20 05/18/20 04:30 04:30 05:58 WBC 7.0 RBC 3.98 L Hgb 12.4 L Hct 37.9 L MCV 95.2 H MCH 31.2 MCHC 32.7 RDW Std Deviation 49.3 H RDW Coeff of Taras 14.2 Plt Count 58 L MPV 11.9 Immature Gran % (Auto) 1.300 H Neut % (Auto) 80.9 H Lymph % (Auto) 8.9 L [place] % (Auto) 7.1 Eos % (Auto) 1.7 Baso % (Auto) 0.1 Absolute Neuts (auto) 5.6 Absolute Lymphs (auto) 0.62 L Nucleated RBC % 0 [address] Review Platelet Estimate Sodium 141 Potassium 4.8 Chloride 106 Carbon Dioxide 33.0 H Anion Gap 2 L BUN 50 H Creatinine 0.70 Estim Creat Clear Calc 61.14 Est GFR (MDRD) Af Amer 142 Est GFR (MDRD) Non-Af 117 BUN/Creatinine Ratio 71.0 H Glucose 197 H Calcium 7.7 L Total Bilirubin 1.10 H AST 66 H ALT 103 H Alkaline Phosphatase 175 H Total Protein 5.4 L Albumin 1.3 L Globulin 4.1 Albumin/Globulin Ratio 0.3 L POC Glucose 167 H 05/18/20 05/18/20 05/19/20 12:16 17:18 01:07 WBC RBC Hgb Hct MCV MCH MCHC RDW Std Deviation RDW Coeff of Taras Plt Count MPV Immature Gran % (Auto) Neut % (Auto) Lymph % (Auto) [place] % (Auto) Eos % (Auto) Baso % (Auto) Absolute Neuts (auto) Absolute Lymphs (auto) Nucleated RBC % Diff Path Review Platelet Estimate Sodium Potassium Chloride Carbon Dioxide Anion Gap BUN Creatinine Estim Creat Clear Calc Est GFR (MDRD) Af Amer Est GFR (MDRD) Non-Af BUN/Creatinine Ratio Glucose Calcium Total Bilirubin AST ALT Alkaline Phosphatase Total Protein Albumin Globulin Albumin/Globulin Ratio POC Glucose 158 H 191 H 189 H 05/19/20 05/19/20 05/19/20 04:30 04:30 05:00 WBC 6.2 RBC 4.23 L Hgb 13.1 Hct 40.7 MCV 96.2 H MCH 31.0 MCHC 32.2 RDW Std Deviation 49.9 H RDW Coeff of Taras 14.4 Plt Count 45 L* MPV 12.3 H Immature Gran % (Auto) 1.100 H Neut % (Auto) 73.0 H Lymph % (Auto) 15.4 L [place] % (Auto) 8.4 Eos % (Auto) 1.9 Baso % (Auto) 0.2 Absolute Neuts (auto) 4.5 Absolute Lymphs (auto) 0.95 Nucleated RBC % 0 [address] Review May foll Platelet Estimate ADEQUATE Sodium Cancelled 143 Potassium Cancelled 4.9 Chloride Cancelled 107 Carbon Dioxide Cancelled 33.0 H Anion Gap Cancelled 3 L BUN Cancelled 51 H Creatinine Cancelled 0.81 Estim Creat Clear Calc Cancelled 75.48 Est GFR (MDRD) Af Amer Cancelled 120 Est GFR (MDRD) Non-Af Cancelled 99 BUN/Creatinine Ratio Cancelled 62.7 H Glucose Cancelled 203 H Calcium Cancelled 8.4 L Total Bilirubin Cancelled 1.20 H AST Cancelled 73 H ALT Cancelled 106 H Alkaline Phosphatase Cancelled 202 H Total Protein Cancelled 6.4 Albumin Cancelled 1.6 L Globulin Cancelled 4.8 H Albumin/Globulin Ratio Cancelled 0.3 L POC Glucose 05/19/20 05:15 WBC RBC Hgb Hct MCV MCH MCHC RDW Std Deviation RDW Coeff of Taras Plt Count MPV Immature Gran % (Auto) Neut % (Auto) Lymph % (Auto) [place] % (Auto) Eos % (Auto) Baso % (Auto) Absolute Neuts (auto) Absolute Lymphs (auto) Nucleated RBC % Diff Path Review Platelet Estimate Sodium Potassium Chloride Carbon Dioxide Anion Gap BUN Creatinine Estim Creat Clear Calc Est GFR (MDRD) Af Amer Est GFR (MDRD) Non-Af BUN/Creatinine Ratio Glucose Calcium Total Bilirubin AST ALT Alkaline Phosphatase Total Protein Albumin Globulin Albumin/Globulin Ratio POC Glucose 178 H Microbiology 05/15/20 15:00 Sputum, Induced/Lukens Gram Stain - Final 05/15/20 15:00 Sputum, Induced/Lukens Respiratory Culture - Final Clinical Impression(s) from Imaging Studies Chest X-Ray 05/03/20 08:55 IMPRESSION: Minimal increased markings at the left lung base with blunting of left costophrenic angle. There has been no change since prior study. Electronically Signed: Casimiro Marie MD at 9:09 EST , Service support , Chest CTA 05/03/20 09:36 IMPRESSION: Multiple bilateral pulmonary emboli involving branches of the lower lobe pulmonary arteries. Multiple bilateral pulmonary infiltrates as described. Splenomegaly. Electronically Signed: Casimiro Marie MD at 10:41 EST , Service support , Chest X-Ray 05/10/20 13:01 IMPRESSION: Patchy bilateral pulmonary infiltrates in a peripheral distribution worse in the left hemithorax. Findings are in keeping with Covid. Electronically Signed: Casimiro Marie MD at 13:48 EST , Service support , Chest X-Ray 05/12/20 09:35 IMPRESSION: The tip of the endotracheal tube is at 4.5 cm proximal to the adonis. Stable bilateral patchy pulmonary infiltrates in a peripheral distribution. Electronically Signed: Casimiro Marie MD at 10:45 EST , Service support , Chest X-Ray 05/12/20 16:43 IMPRESSION: 1. Interval placement of left-sided PICC line with the tip within the mid SVC. No pneumothorax. 2. No significant interval change of cardiopulmonary status. at 1824 Reported and signed by: Keagan Hensley MD Electronically Signed: Keagan Hensley MD at 18:23 EST Tel , Service support , Chest X-Ray 05/14/20 05:17 IMPRESSION: Support apparatus as above. Diffuse pulmonary infiltrates. Nonspecific however can be seen with infectious inflammatory process. Findings can be seen with an atypical viral infectious process given patient''s history. Recommend follow-up imaging to resolution. No significant change in the appearance of the lungs. Electronically Signed: Dennis Baldwin MD at 6:32 EST Tel , Service support , Medical Necessity - Tobacco Use Smoking Status: Never smoker Assessment/Plan All Active Problems Hyperglycemia due to diabetes mellitus (Acute) COVID-19 (Acute) Hypoxemia (Acute) Pulmonary embolism (Acute) Sepsis (Acute) History of cholecystectomy (Resolved) Shortness of breath (Acute) RECOMMENDATIONS: 1. Continue to wean FiO2 and PEEP to maintain saturations at or above 90%. 2. Continue Decadron as ordered. 3. Stop all forms of systemic anticoagulation over concerns for GI blood loss. 4. Continue PPI therapy twice daily. 5. Continue tube feeds as tolerated. 6. Continue Lantus and sliding scale insulin coverage. 7. Ongoing goals of care discussions with the patient's . 8. Start scheduled Seroquel and transition to Precedex for sedation. IMPRESSIONS: 1. Acute hypoxemic respiratory failure secondary to COVID-19 pneumonia and bilateral pulmonary emboli The patient was initially admitted to the hospital and diagnosed with COVID-19 pneumonia and bilateral pulmonary emboli. Over the course of his hospitalization, the patient continued to decompensate from a respiratory perspective, requiring increasing amounts of supplemental oxygen. The patient eventually required intubation on May 12. Plan to continue the patient on assist control mode of mechanical ventilation and wean FiO2 and PEEP to maintain saturations at or above 90%. The patient has completed a treatment course of remdesivir and will remain on Decadron. The patient was also treated with antibiotics given Haemophilus isolated from sputum culture. Although the patient was initially started on Eliquis, his systemic anticoagulation was discontinued over concerns for possible lower GI bleeding. 2. Melena/occult blood positive stools Plan to continue current supportive measures with twice daily PPI therapy. The patient is unable to tolerate any form of systemic anticoagulation without developing increased GI blood loss. Continue to monitor H&H daily. No current indication for transfusion of blood products. 3. Diabetes mellitus/hypertension/hyperlipidemia/BPH/obesity/paroxysmal atrial fibrillation Complicates care, management, recovery and prognosis. Continue home medications as indicated. Physical therapy to work with the patient as tolerated. Continue Lantus and sliding scale insulin coverage. TIME: 35 minutes of critical care time, independent of procedures, was spent addressing the patient's acute hypoxemic respiratory failure, COVID-19 pneumonia, pulmonary emboli, possible lower GI bleeding, review of all data and collaboration with the care team. ([id number]) [id number]: [id number] Critical care first hour
--- NOTE | 2020-05-19 07:14 | PCM.PN.HOSP ---
Patient Problems: Active and Suspected Problems Hyperglycemia due to diabetes mellitus (Acute) COVID-19 (Acute) Hypoxemia (Acute) Pulmonary embolism (Acute) Sepsis (Acute) Shortness of breath (Acute) Intraperitoneal bleeding (Suspected) Subjective: Patient overnight with stable vital signs, remained afebrile, notable agitation and hypoxia with weaning trial. Patient with ongoing maroon-colored holes although hemoglobin remained stable, currently 13.1 but did have platelet decreased to 45. Discussed case and patient current presentation with junior electrical engineer who noted plan for transition to Seroquel and Precedex with wean off of propofol with planned repeat trial in a.m. 05/20/2020 for extubation. Patient with more coarse rhonchorous breath sounds and staff notes that he did improve with RT interventions. Patient with no obvious evidence of fevers, chills, nausea, emesis, abdominal pain, chest pain although limited given sedated, intubated status. Objective: Physical Examination: General: Sedated, intubated, no obvious distress, laying in the ICU bed, NAD currently, does not awaken to stimuli, currently being weaned off of propofol to Seroquel and Precedex. Skin: normal color, turgor, no icterus, cyanosis. HEENT: AT/NC, EOM unable to be assessed given sedated status as noted, PERRLA, mildly dry MM, ET tube and OG tube in place. Lungs: Diminished breath sounds, greater bases, symmetric rise, intubated, sedated, no obvious rales, rhonchi or wheezing currently. Heart: Regular rate and rhythm; no gallop, rub audible. Abdomen: soft, overly obese, NTTP, ND, continued mildly hyperactive bowel sounds. Extremities: no cyanosis or clubbing, mild bilateral ankle and hand nonpitting edema. Neurological: Patient sedated, intubated, not alert or oriented, cognitive function not baseline intact, pupils equally reactive to light and accomodation; cranial nerves unable to be assessed given sedated status, not moving extremities to withdrawal, strength accordingly severely globally decreased. Psychiatric: affect appears flat, no acute evidence of depressive or anxiety feelings. Vitals/I&O's: Vital Signs Temp Pulse Resp BP Pulse Ox 99.8 F H 108 H 26 H 180/89 H 89 05/19/20 06:00 05/19/20 06:00 05/19/20 06:00 05/19/20 06:00 05/19/20 06:00 Oxygen Flow Rate (L/min) 60 Oxygen Delivery Method Mechanical Ventilator Weight: 283 lb 4.704 oz Body Mass Index (BMI) 42.2 Finger Stick Blood Glucose 161 Intake and Output for Last 24 Hours 05/17/20 05/18/20 05/19/20 23:59 23:59 23:59 Intake Total 2541.29 / 3128.19 3533.58 / 4008.98 1239.50 / 1239.50 Output Total 1255 / 1605 2350 / 2700 700 / 700 Balance 1286.29 / 1523.19 1183.58 / 1308.98 539.50 / 539.50 Microbiology Past 72 Hours 05/15/20 15:00 Sputum, Induced/Lukens Gram Stain - Final 05/15/20 15:00 Sputum, Induced/Lukens Respiratory Culture - Final Laboratory Results 05/18/20 12:16: POC Glucose 158 H 05/18/20 17:18: POC Glucose 191 H 05/19/20 01:07: POC Glucose 189 H 05/19/20 04:30: WBC 6.2, RBC 4.23 L, Hgb 13.1, Hct 40.7, MCV 96.2 H, MCH 31.0, MCHC 32.2, RDW Std Deviation 49.9 H, RDW Coeff of Taras 14.4, Plt Count 45 L*, MPV 12.3 H, Immature Gran % (Auto) 1.100 H, Neut % (Auto) 73.0 H, Lymph % (Auto) 15.4 L, [place] % (Auto) 8.4, Eos % (Auto) 1.9, Baso % (Auto) 0.2, Absolute Neuts (auto) 4.5, Absolute Lymphs (auto) 0.95, Nucleated RBC % 0, Diff Path Review May najma, Platelet Estimate ADEQUATE 05/19/20 04:30: Sodium Cancelled, Potassium Cancelled, Chloride Cancelled, Carbon Dioxide Cancelled, Anion Gap Cancelled, BUN Cancelled, Creatinine Cancelled, Estim Creat Clear Calc Cancelled, Est GFR (MDRD) Af Amer Cancelled, Est GFR (MDRD) Non-Af Cancelled, BUN/Creatinine Ratio Cancelled, Glucose Cancelled, Calcium Cancelled, Total Bilirubin Cancelled, AST Cancelled, ALT Cancelled, Alkaline Phosphatase Cancelled, Total Protein Cancelled, Albumin Cancelled, Globulin Cancelled, Albumin/Globulin Ratio Cancelled 05/19/20 05:00: Sodium 143, Potassium 4.9, Chloride 107, Carbon Dioxide 33.0 H, Anion Gap 3 L, BUN 51 H, Creatinine 0.81, Estim Creat Clear Calc 75.48, Est GFR (MDRD) Af Amer 120, Est GFR (MDRD) Non-Af 99, BUN/Creatinine Ratio 62.7 H, Glucose 203 H, Calcium 8.4 L, Total Bilirubin 1.20 H, AST 73 H, ALT 106 H, Alkaline Phosphatase 202 H, Total Protein 6.4, Albumin 1.6 L, Globulin 4.8 H, Albumin/Globulin Ratio 0.3 L 05/19/20 05:15: POC Glucose 178 H Current Medications Acetaminophen (Acetaminophen 650 Mg/20 Ml Udc) 650 mg GT Q6H PRN PRN PRN Reason: Pain Score 1-10/Temp > 100.7 F Al Hydroxide/Mg Hydroxide (Mag Hydrox/Al Hydrox/Simeth 30 Ml Udc) 30 ml GT Q6H PRN PRN PRN Reason: Gastric Burning Albuterol Sulfate (Albuterol Ih 8.5 Gm (Proair) Inhaler (200 Puffs)) 2.5 puff INHALATION Q2H PRN PRN PRN Reason: Shortness of Breath/Wheezing Last Admin: 05/09/20 18:57 Dose: 2.5 puff Documented by: Atorvastatin Calcium (Atorvastatin Calcium 20 Mg Tablet) 20 mg GT QHS KEERTHI Last Admin: 05/18/20 21:12 Dose: 20 mg Documented by: Calamine/Phenol (Menthol/Lanolin/Calamine/Znox 113 Gm Tube) 1 applic TOPICAL TID KEERTHI; Protocol Last Admin: 05/19/20 06:14 Dose: 1 applicatio Documented by: Chlorhexidine Gluconate (Chlorhexidine 15 Ml) 15 ml PO BID KEERTHI Last Admin: 05/18/20 21:16 Dose: 15 ml Documented by: Chlorhexidine Gluconate (Chlorhexidine Gluc 2% Cloth 1 Each Towelette) 1 each TOPICAL DAILY KEERTHI Last Admin: 05/18/20 08:24 Dose: 1 each Documented by: Cholecalciferol (Cholecalciferol (Vit D3) 1,000 Unit (25mcg)) 1,000 unit GT BID [facility] Last Admin: 05/18/20 21:12 Dose: 1,000 unit Documented by: Cyanocobalamin (Cyanocobalamin 500 Mcg Tablet) 1,000 mcg GT DAILY [facility] Last Admin: 05/18/20 08:24 Dose: 1,000 mcg Documented by: Dexamethasone (Dexamethasone 4 Mg Tablet) 6 mg GT DAILY [facility] Stop: 05/21/20 10:01 Last Admin: 05/18/20 08:24 Dose: 6 mg Documented by: Dextrose (Dextrose 50%-Water 25 Gm/50 Ml Disp.Syrin) 0 gm IV X1 PRN; Protocol PRN Reason: Hypoglycemia Last Admin: 05/11/20 03:54 Dose: 12.5 gm Documented by: Glucagon (Glucagon 1 Mg/Ml Syringe) 1 mg IM .X1 PRN PRN Reason: Hypoglycemia Sodium Chloride () 250 mls @ 15 mls/hr IV .[id number] PRN PRN Reason: Saline Flush Last Infusion: 05/18/20 19:27 Dose: Infused Documented by: Sodium Chloride () 250 mls @ 15 mls/hr IV .[id number] PRN PRN Reason: Additional IVPB Infusion Propofol (Diprivan) 1,000 mg in 100 mls @ 7.716 mls/hr CONT INF .Q12H [facility]; Protocol Last Admin: 05/19/20 06:30 Dose: 30 mcg/kg/min, 23.1 mls/hr Documented by: Fentanyl Citrate 1,000 mcg/ (Sodium Chloride) 100 mls @ 5 mls/hr CONT INF .Q20H [facility]; Protocol Last Admin: 05/19/20 06:30 Dose: 200 mcg/hr, 20 mls/hr Documented by: Enteral Nutritional Formula (Vital High Protein) 1,000 mls @ 65 mls/hr GT .[id number] [facility] Last Admin: 05/18/20 21:17 Dose: 65 mls/hr Documented by: Pantoprazole Sodium 40 mg/ (Sodium Chloride) 110 mls @ 330 mls/hr IV Q12 [facility] Last Infusion: 05/19/20 00:04 Dose: Infused Documented by: Insulin Glargine (Insulin Glargine 100 Units/Ml Pen) 120 units SC BID@0000,1200 [facility] Last Admin: 05/19/20 01:16 Dose: 120 units Documented by: Insulin Human Lispro (Insulin Lispro 100 Unit/Ml Insuln.Pen) 0 unit SC Q6 [facility]; Protocol Last Admin: 05/19/20 06:13 Dose: 3 u Documented by: Magnesium Hydroxide (Magnesium Hydroxide 30 Ml Udc) 30 ml GT DAILY PRN PRN PRN Reason: Constipation Last Admin: 05/15/20 05:54 Dose: 30 ml Documented by: Melatonin (Melatonin 3 Mg Tablet) 3 mg PO QHS PRN PRN PRN Reason: INSOMNIA Last Admin: 05/11/20 21:42 Dose: 3 mg Documented by: Nitroglycerin (Nitroglycerin (Inpatient Use) 0.4 Mg Tab.Subl) 0.4 mg SUBLINGUAL Q5M PRN PRN Reason: CARDIAC/CHEST PAIN Nystatin (Nystatin Powder 15gm Bottle) 1 applic TOPICAL TID [facility]; Protocol Last Admin: 05/19/20 06:14 Dose: 1 applicatio Documented by: Ondansetron HCl (Ondansetron 4 Mg/2 Ml Vial) 4 mg IV Q8H PRN PRN PRN Reason: NAUSEA/VOMITING Last Admin: 05/11/20 09:14 Dose: 4 mg Documented by: Polyethylene Glycol (Polyethylene Glycol 3350 17 Gm Packet) 17 gm PO DAILY PRN PRN Reason: CONSTIPATION Prochlorperazine Edisylate (Prochlorperazine 10 Mg/2 Ml Vial) 5 mg IV Q4H PRN PRN PRN Reason: Breakthrough nausea/vomiting Senna/Docusate Sodium (Senna/Docusate Sodium 1 Tablet) 2 tablet GT BID PRN PRN Reason: CONSTIPATION Sodium Chloride (0.9% Saline Lock 10 Ml Syringe) 10 - 40 ml IV UD PRN PRN Reason: SALINE FLUSH Last Admin: 05/18/20 08:22 Dose: 20 ml Documented by: Sodium Chloride (Sodium Chloride 0.65% 1 [place].Btl) 2 spray NASAL TID PRN PRN PRN Reason: NASAL DRYNESS Last Admin: 05/06/20 21:47 Dose: 2 spray Documented by: STROKE Vital Signs/Narrative: Vital Signs Temp Pulse Resp BP Pulse Ox 05/19/20 06:00 99.8 F H 108 H 26 H 180/89 H 89 05/19/20 05:44 92 05/19/20 05:00 99.3 F H 88 19 H 160/66 H 90 05/19/20 04:59 92 20 H 90 05/19/20 04:00 99.1 F 105 H 24 H 101/54 L 89 05/19/20 03:24 69 Medical Necessity - Tobacco Use Smoking Status: Never smoker Assessment/Plan All Active Problems Hyperglycemia due to diabetes mellitus (Acute) COVID-19 (Acute) Hypoxemia (Acute) Pulmonary embolism (Acute) Sepsis (Acute) History of cholecystectomy (Resolved) Shortness of breath (Acute) The patient is a 69 y/o M w/ PMHx: Chronic Thrombocytopenia, Morbid Obesity, HTN, HLD, Diabetes mellitus type II, PAF, MARIELLE, BPH who presents to the [facility] ED on 05/03/20 with history of Covid diagnosis on 04/27/2020 per PCP office with worsening symptoms despite discharged home at that time on Decadron with progressively worsening dyspnea, headache, fatigue, fever, chills. 1. Acute hypoxic respiratory failure secondary to acute bilateral pneumonia and bilateral pulmonary emboli secondary to acute COVID-19 viral syndrome: Following admission patient with continued decompensation requiring eventual intubation 05/12/2020, evaluated by junior electrical engineer and infectious disease with completion of remdesivir regimen, continued on Decadron with plan to continue 10-day course, treated also initially with antibiotics for sputum culture with noted Haemophilus, transitioned to Eliquis from Pradaxa secondary to bilateral PE however significant concerns as noted with possible GI bleeding although hemoglobin had remained stable therefore discontinued, 05/17/2020 transitioned to heparin drip which failed with onset bloody output via OG however Hgb remained stable despite this onset. Continued sedation with vent management per junior electrical engineer, continue tube feeds currently at goal, continue both Lantus and insulin sliding scale coverage per tube feed protocols, 05/18/20 IV scheduled lasix intention per ICU; however, patient with resulting hypotension thus diuresis held. Family 05/17/2020 noting would likely defer trach or PEG if patient is unable to be extubated. 05/19/2020 planned transition off propofol to Precedex and Seroquel per discussion with junior electrical engineer with repeat attempted extubation trial 05/20/2020. 2. Acute GI bleed with melanotic stools noted to be occult blood positive: Continue patient on twice daily high-dose PPI, had been on Pradaxa prior to presentation with transition to Eliquis given noted bilateral PE however onset of concerning GI bleed therefore this had been discontinued, given significant presentation, high risk planned reinitiation anticoagulation with heparin drip 05/17/2020 with close monitoring with noted blood output via OG thus discontinued. Admission 05/03/2020 hemoglobin 13.6, 05/17/2020 11.9-->05/19/20 CBC w/ Hgb 13.1, Plts 45. 3. Acute on Chronic thrombocytopenia: Admission platelets 56, improved following anticoagulation hold however despite this hold trended down again with noted 05/17/2020 platelets 56, heparin drip trial as noted 05/17/20 failed, 05/19/20 CBC w/ plts 45, continue to closely monitor. Prior baseline platelets appeared primarily 60-80. 4. Elevated LFTs: Admission 05/03/2020 AST/ALT 26/28, alk phos 68 with eventual rise starting on 05/13/2020 with total bilirubin 1.40, AST/ALT 53/78, alk phos 119-->05/19/2020 total bilirubin 1.20, AST/ALT 73/106, alk phos 202, likely secondary to acute presentation as noted #1, continue to closely trend. 5. Diabetes mellitus type II with hyperglycemia secondary to #1 with steroid usage as noted: Hold oral home regimen, continue altered insulin regimen currently insulin glargine 120 units subcu twice daily, currently on tube feeds, continue accu checks w/ ISS per tube feed protocols. BS currently 150-200. 6. PAF: Previously on Pradaxa, discontinued and transition to Eliquis upon presentation as noted with #1 however held given #2, currently attempting heparin drip with continued close monitoring as noted, not on rate or rhythm agent currently. 7. Hypertension: BPs remain low normal, outpatient normally on atenolol, losartan which were both held, resume if clinically appropriate. 8. Hyperlipidemia: We will continue patient statin therapy. 9. Morbid Obesity: Weight loss and lifestyle changes will be encouraged once patient becomes cognizant/extubated if appropriate, nutrition consulted and following as noted for tube feeds. 10. MARIELLE: Currently intubated and sedated as noted above. 11. GERD: Currently on IV PPI as noted above. 12. DVT prophylaxis: SCDs, heparin drip unsuccessful, not anticoagulated. 13. CODE STATUS: Full code currently however family reticent to perform trach and PEG therefore likely if unable to be extubated would have transition of CODE STATUS. Inpatient E&M: 38580 Subs Hosp L3
[2020-05-19] MEDS: Chlorhexidine 15 ML PO ×2 (08:33→21:20)
[2020-05-19] MEDS: dexAMETHasone 4 MG Tablet 6 MG GT (08:34)
[2020-05-19] MEDS: CHLORHEXIDINE GLUC 2% CLOTH 1 EACH TOWELETTE TOPICAL (08:34)
[2020-05-19] MEDS: Cyanocobalamin 500 MCG Tablet 1000 MCG GT (08:34)
[2020-05-19] MEDS: Propofol 10MG/Ml 1,000 MG/100 ML Bottle 19.3 MG CONT INF (09:00)
[2020-05-19 09:43] LABS: CPK Total, Creatine Kinase 50 U/L (39-308); Triglycerides 81 mg/dL
[2020-05-19] MEDS: Dexmedetomidine 400 mcg in 0.9% NS 96 mL 16.1 MCG CONT INF (11:01)
[2020-05-19] MEDS: QUEtiapine 25 MG Tablet GT ×2 (11:02→21:13)
[2020-05-19] MEDS: Vital High Protein 1,000 ML 65 ML GT (11:05)
--- NOTE | 2020-05-19 11:06 | CASEMGMT ---
RN Note: participated in ICU interdisciplinary rounds. participated in rounds via phone. Pt remains on ventilator,60% O2. Failed spontaneous breathing trial this am. Anticoagulation on hold due to melena. Pt is on PPI therapy. Presedix started. TF vital High Protein, 65 ml/hr. DC Disposition: ROBIND. Ralph VON RN ACM
[2020-05-19 11:40] LABS: Bedside Glucose 147 mg/dL (70-110)
[2020-05-19 13:33] LABS: Pathologist Review Reviewed
--- NOTE | 2020-05-19 15:35 | PN.ID_ITS ---
Patient Problems: Active and Suspected Problems Hyperglycemia due to diabetes mellitus (Acute) COVID-19 (Acute) Hypoxemia (Acute) Pulmonary embolism (Acute) Sepsis (Acute) Shortness of breath (Acute) Intraperitoneal bleeding (Suspected) Subjective: O2 improving, no fever - Physical Exam Vitals/I&O's: Vital Signs Temp Pulse Resp BP Pulse Ox 99.6 F H 64 18 106/44 L 95 05/19/20 14:00 05/19/20 15:08 05/19/20 15:00 05/19/20 15:00 05/19/20 15:00 Oxygen Flow Rate (L/min) 60 Oxygen Delivery Method Mechanical Ventilator Weight: 128.5 kg Body Mass Index (BMI) 42.2 Finger Stick Blood Glucose 161 Intake and Output for Last 24 Hours 05/17/20 05/18/20 05/19/20 23:59 23:59 23:59 Intake Total 2541.29 / 3128.19 3533.58 / 4008.98 2387.12 / 2387.12 Output Total 1255 / 1605 2350 / 2700 1050 / 1050 Balance 1286.29 / 1523.19 1183.58 / 1308.98 1337.12 / 1337.12 General: No apparent distress Lungs: Clear to auscultation, Diminished Cardiovascular: Regular rate, Regular Rhythm Abdomen: Soft, Non Tender, Non-Distended Skin: No rashes Microbiology Past 72 Hours 05/15/20 15:00 Sputum, Induced/Lukens Gram Stain - Final 05/15/20 15:00 Sputum, Induced/Lukens Respiratory Culture - Final Laboratory Results 05/18/20 17:18: POC Glucose 191 H 05/19/20 01:07: POC Glucose 189 H 05/19/20 04:30: WBC 6.2, RBC 4.23 L, Hgb 13.1, Hct 40.7, MCV 96.2 H, MCH 31.0, MCHC 32.2, RDW Std Deviation 49.9 H, RDW Coeff of Atras 14.4, Plt Count 45 L*, MPV 12.3 H, Immature Gran % (Auto) 1.100 H, Neut % (Auto) 73.0 H, Lymph % (Auto) 15.4 L, [place] % (Auto) 8.4, Eos % (Auto) 1.9, Baso % (Auto) 0.2, Absolute Neuts (auto) 4.5, Absolute Lymphs (auto) 0.95, Nucleated RBC % 0, Diff Path Review Reviewed, Platelet Estimate ADEQUATE 05/19/20 04:30: Sodium Cancelled, Potassium Cancelled, Chloride Cancelled, Carbon Dioxide Cancelled, Anion Gap Cancelled, BUN Cancelled, Creatinine Cancelled, Estim Creat Clear Calc Cancelled, Est GFR (MDRD) Af Amer Cancelled, Est GFR (MDRD) Non-Af Cancelled, BUN/Creatinine Ratio Cancelled, Glucose Cancelled, Calcium Cancelled, Total Bilirubin Cancelled, AST Cancelled, ALT Cancelled, Alkaline Phosphatase Cancelled, Total Protein Cancelled, Albumin Cancelled, Globulin Cancelled, Albumin/Globulin Ratio Cancelled 05/19/20 05:00: Sodium 143, Potassium 4.9, Chloride 107, Carbon Dioxide 33.0 H, Anion Gap 3 L, BUN 51 H, Creatinine 0.81, Estim Creat Clear Calc 75.48, Est GFR (MDRD) Af Amer 120, Est GFR (MDRD) Non-Af 99, BUN/Creatinine Ratio 62.7 H, Gluc ose 203 H, Calcium 8.4 L, Total Bilirubin 1.20 H, AST 73 H, ALT 106 H, Alkaline Phosphatase 202 H, Total Protein 6.4, Albumin 1.6 L, Globulin 4.8 H, Albumin/Globulin Ratio 0.3 L 05/19/20 05:00: Total Creatine Kinase 50, Triglycerides 81 05/19/20 05:15: POC Glucose 178 H 05/19/20 11:03: POC Glucose 147 H Current Medications Acetaminophen (Acetaminophen 650 Mg/20 Ml Udc) 650 mg GT Q6H PRN PRN PRN Reason: Pain Score 1-10/Temp > 100.7 F Al Hydroxide/Mg Hydroxide (Mag Hydrox/Al Hydrox/Simeth 30 Ml Udc) 30 ml GT Q6H PRN PRN PRN Reason: Gastric Burning Albuterol Sulfate (Albuterol Ih 8.5 Gm (Proair) Inhaler (200 Puffs)) 2.5 puff INHALATION Q2H PRN PRN PRN Reason: Shortness of Breath/Wheezing Last Admin: 05/09/20 18:57 Dose: 2.5 puff Documented by: Atorvastatin Calcium (Atorvastatin Calcium 20 Mg Tablet) 20 mg GT QHS [facility] Last Admin: 05/18/20 21:12 Dose: 20 mg Documented by: Calamine/Phenol (Menthol/Lanolin/Calamine/Znox 113 Gm Tube) 1 applic TOPICAL TID [facility]; Protocol Last Admin: 05/19/20 13:09 Dose: 1 applicatio Documented by: Chlorhexidine Gluconate (Chlorhexidine 15 Ml) 15 ml PO BID [facility] Last Admin: 05/19/20 08:33 Dose: 15 ml Documented by: Chlorhexidine Gluconate (Chlorhexidine Gluc 2% Cloth 1 Each Towelette) 1 each TOPICAL DAILY [facility] Last Admin: 05/19/20 08:34 Dose: 1 each Documented by: Cholecalciferol (Cholecalciferol (Vit D3) 1,000 Unit (25mcg)) 1,000 unit GT BID [facility] Last Admin: 05/19/20 08:34 Dose: 1,000 unit Documented by: Cyanocobalamin (Cyanocobalamin 500 Mcg Tablet) 1,000 mcg GT DAILY [facility] Last Admin: 05/19/20 08:34 Dose: 1,000 mcg Documented by: Dexamethasone (Dexamethasone 4 Mg Tablet) 6 mg GT DAILY [facility] Stop: 05/21/20 10:01 Last Admin: 05/19/20 08:34 Dose: 6 mg Documented by: Dextrose (Dextrose 50%-Water 25 Gm/50 Ml Disp.Syrin) 0 gm IV X1 PRN; Protocol PRN Reason: Hypoglycemia Last Admin: 05/11/20 03:54 Dose: 12.5 gm Documented by: Glucagon (Glucagon 1 Mg/Ml Syringe) 1 mg IM .X1 PRN PRN Reason: Hypoglycemia Sodium Chloride () 250 mls @ 15 mls/hr IV .[id number] PRN PRN Reason: Saline Flush Last Infusion: 05/18/20 19:27 Dose: Infused Documented by: Sodium Chloride () 250 mls @ 15 mls/hr IV .[id number] PRN PRN Reason: Additional IVPB Infusion Propofol (Diprivan) 1,000 mg in 100 mls @ 7.716 mls/hr CONT INF .Q12H [facility]; Protocol Last Titration: 05/19/20 15:00 Dose: 5 mcg/kg/min, 3.9 mls/hr Documented by: Fentanyl Citrate 1,000 mcg/ (Sodium Chloride) 100 mls @ 5 mls/hr CONT INF .Q20H [facility]; Protocol Last Titration: 05/19/20 15:00 Dose: 150 mcg/hr, 15 mls/hr Documented by: Enteral Nutritional Formula (Vital High Protein) 1,000 mls @ 65 mls/hr GT .[id number] [facility] Last Admin: 05/19/20 11:05 Dose: 65 mls/hr Documented by: Pantoprazole Sodium 40 mg/ (Sodium Chloride) 110 mls @ 330 mls/hr IV Q12 [facility] Last Infusion: 05/19/20 10:32 Dose: Infused Documented by: Insulin Glargine (Insulin Glargine 100 Units/Ml Pen) 120 units SC BID@0000,1200 [facility] Last Admin: 05/19/20 11:04 Dose: 120 units Documented by: Insulin Human Lispro (Insulin Lispro 100 Unit/Ml Insuln.Pen) 0 unit SC Q6 [facility]; Protocol Last Admin: 05/19/20 11:04 Dose: Not Given Documented by: Magnesium Hydroxide (Magnesium Hydroxide 30 Ml Udc) 30 ml GT DAILY PRN PRN PRN Reason: Constipation Last Admin: 05/15/20 05:54 Dose: 30 ml Documented by: Melatonin (Melatonin 3 Mg Tablet) 3 mg PO QHS PRN PRN PRN Reason: INSOMNIA Last Admin: 05/11/20 21:42 Dose: 3 mg Documented by: Nitroglycerin (Nitroglycerin (Inpatient Use) 0.4 Mg Tab.Subl) 0.4 mg SUBLINGUAL Q5M PRN PRN Reason: CARDIAC/CHEST PAIN Nystatin (Nystatin Powder 15gm Bottle) 1 applic TOPICAL TID [facility]; Protocol Last Admin: 05/19/20 13:09 Dose: 1 applicatio Documented by: Ondansetron HCl (Ondansetron 4 Mg/2 Ml Vial) 4 mg IV Q8H PRN PRN PRN Reason: NAUSEA/VOMITING Last Admin: 05/11/20 09:14 Dose: 4 mg Documented by: Polyethylene Glycol (Polyethylene Glycol 3350 17 Gm Packet) 17 gm PO DAILY PRN PRN Reason: CONSTIPATION Prochlorperazine Edisylate (Prochlorperazine 10 Mg/2 Ml Vial) 5 mg IV Q4H PRN PRN PRN Reason: Breakthrough nausea/vomiting Quetiapine Fumarate (Quetiapine 25 Mg Tablet) 25 mg GT BID [facility] Last Admin: 05/19/20 11:02 Dose: 25 mg Documented by: Senna/Docusate Sodium (Senna/Docusate Sodium 1 Tablet) 2 tablet GT BID PRN PRN Reason: CONSTIPATION Sodium Chloride (0.9% Saline Lock 10 Ml Syringe) 10 - 40 ml IV UD PRN PRN Reason: SALINE FLUSH Last Admin: 05/18/20 08:22 Dose: 20 ml Documented by: Sodium Chloride (Sodium Chloride 0.65% 1 [place].Btl) 2 spray NASAL TID PRN PRN PRN Reason: NASAL DRYNESS Last Admin: 05/06/20 21:47 Dose: 2 spray Documented by: Medical Necessity - Tobacco Use Smoking Status: Never smoker Route of nutrition/ use of supplements: [] Nutritional Intake: [] IV Site: [] Rao Catheter: [] - Assessment/Plan Antibiotics: [] Assessment/Plan: [] Active and Suspected Problems Hyperglycemia due to diabetes mellitus (Acute) COVID-19 (Acute) Hypoxemia (Acute) Pulmonary embolism (Acute) Sepsis (Acute) Shortness of breath (Acute) Intraperitoneal bleeding (Suspected) covid with hypoxia and PEs - sx started 04/23, (+) covid as an outpt. On dex, anticoagulation, and completed remdesivir. 1 of 2 bcx with CoNS, consistent with contaminant. Sputum with haemophilus and strep, treated with 7 days of ceftriaxone. Now intubated 2/3, sputum cx neg so far. O2 improved. Extended course of dex. Out of iso today. Will follow, d/w Dr. Black
[2020-05-19] MEDS: Propofol 10MG/Ml 1,000 MG/100 ML Bottle 7.7 MG CONT INF ×2 (16:23→23:36)
[2020-05-19 18:05] LABS: Bedside Glucose 161 mg/dL (70-110)
[2020-05-19] MEDS: Atorvastatin Calcium 20 MG Tablet GT (21:13)
[2020-05-19] MEDS: 0.9% Saline Lock 10 ML Syringe IV (23:31)
[2020-05-19 23:35] LABS: Bedside Glucose 127 mg/dL (70-110)
[2020-05-20] VITALS (37 sets, daily range): BP systolic 82–179; BP diastolic 44–102; PULSE 69–125; RESP 12–29; TEMP 37.3–37.9; O2SAT 89–98
[2020-05-20] MEDS: CHLORHEXIDINE GLUC 2% CLOTH 1 EACH TOWELETTE TOPICAL (00:03)
[2020-05-20] MEDS: Vital High Protein 1,000 ML 65 ML GT ×2 (04:02→21:44)
[2020-05-20] MEDS: 0.9% Saline Lock 10 ML Syringe IV ×3 (04:02→21:56)
[2020-05-20 04:19] LABS: Absolute Lymphocyte Count 1.01 X10^3/uL (0.83-4.51); Absolute Neutrophil Count 5.6 X10^3/uL (2.0-7.7); Basophil# 0.03 X10^3/uL; Basophil% 0.4 % (0-1); Eosinophil# 0.13 X10^3/uL; Eosinophils% 1.7 % (0-5); Hematocrit 36.8 % (40-54); Hemoglobin 11.9 g/dL (13.0-16.5); Lymphocyte # 1.01 X10^3/ul (4.0); Lymphocyte % 13.3 % (19-41); Mean Corp Hgb Conc 32.3 g/dL (32-36); Mean Corpuscular Hgb 30.9 pg (27.0-32.0); Mean Corpuscular Volume 95.6 fL (80-94); Monocyte# 0.63 X10^3/uL; Monocyte% 8.3 % (0-10); NRBC Flagged by Analyzer 0 % (0-5); Neutrophil # 5.62 X10^3/uL (2.7-7.7); Neutrophil % 74.2 % (47-70); POSITIVE COUNT YES; Platelet Count 51 K/mm3 (150-450); RBC Distribution Width CV 14.6 % (11.6-14.6); RBC Distribution Width SD 49.8 fl (35.1-43.9); Red Blood Count 3.85 M/mm3 (4.6-6.2); White Blood Count 7.6 K/mm3 (4.4-11.0)
[2020-05-20] MEDS: TITRATION PARAMETER CHANGE 1 EACH IV (04:26)
[2020-05-20 04:28] LABS: BUN 52 mg/dL (7-18); Creatinine, Serum 0.72 mg/dL (0.70-1.30); Estimated Creatinine Clearance 61.14 ml/min; Glucose 103 mg/dL (74-106)
[2020-05-20 04:29] LABS: ALB/GLOB Ratio 0.3 RATIO (0.9-2.4); AST(SGOT) 81 U/L (15-37); Alanine Aminotransfer ALT/SGPT 101 U/L (16-61); Albumin, Serum 1.4 g/dL (3.2-5.0); Alkaline Phosphatase 191 U/L (45-117); Anion Gap 3 (5-15); BUN/Creat Ratio 72.1 RATIO (10-20); Calcium,Total 8.1 mg/dL (8.5-10.1); Chloride 109 mmol/L (98-107); EST Glomerular Filtration Rate 114 mL/min (>60); Est Glom Filt Rate - Afr Amer 138 mL/min (>60); Globulin 4.5 g/dL (2.2-4.2); Potassium 4.3 mmol/L (3.5-5.1); Protein, Total 5.9 g/dL (6.4-8.2); Sodium Level 145 mmol/L (136-145)
[2020-05-20] MEDS: Nystatin Powder 15gm Bottle 1 APPLIC TOPICAL ×3 (05:22→21:40)
[2020-05-20] MEDS: Menthol/Lanolin/Calamine/Znox 113 GM Tube 1 APPLIC TOPICAL ×3 (05:23→21:41)
[2020-05-20 05:36] LABS: Bedside Glucose 93 mg/dL (70-110)
[2020-05-20] MEDS: Propofol 10MG/Ml 1,000 MG/100 ML Bottle 15.5 MG CONT INF (06:12)
--- NOTE | 2020-05-20 06:14 | PN_ITS ---
Subjective: The patient was seen and examined at the bedside this morning. Events from the last 24 hours have been reviewed. The patient is currently afebrile, hemodynamically stable and maintaining appropriate oxygen saturations on assist control mode of mechanical ventilation with an FiO2 requirement of 55% and PEEP of 5. Yesterday, an attempt was made to transition the patient to Precedex for sedation. However, the patient did develop significant bradycardia and the aforementioned medication had to be discontinued. He was then transition back to propofol and fentanyl. This morning, his sedation was placed on hold for a spontaneous awakening trial. As a consequence of holding his sedation, the patient became tachypneic and tachycardic. His FiO2 requirement also increased. Therefore, the patient did fail his spontaneous awakening trial. He did have 2 stools noted by nursing staff overnight. He is currently tolerating tube feeds. Platelet count has stabilized at 51,000 this morning. The patient is currently documented to be overall net +1.6 L for the hospital admission. Objective: The patient's most recent lab work, culture data and imaging studies have all been personally reviewed. Sputum culture was positive for possible Haemophilus and group B streptococcus. General: - - Remains intubated, sedated and mechanically ventilated. No ventilator dyssynchrony noted. HEENT: Atraumatic, Normocephalic Oral: No Gingival or Mucosal Lesions/ Ulcerations, - - Endotracheal and OG tubes in place Neck: Supple, No Nodes, Trachea Midline Lungs: Diminished, Tachypneic, Wheezes Cardiovascular: Normal S1, Normal S2, No murmurs, Tachycardic Abdomen: Bowel Sounds Present, Soft, Non Tender, Obese Extremities: No clubbing, No cyanosis, No edema Skin: - - No significant change from previous Musculoskeletal: No Tenderness to Palpation of Joints or Extremities Lymphatic: No Cervical, Supraclavicular, or Inguinal Adenopathy Neurological: - - No focal neurological deficits. Moves extremities spontaneously. Not following commands at the present time. Vital Signs Temp Pulse Resp BP Pulse Ox 99.9 F H 118 H 29 H 179/82 H 90 05/20/20 06:00 05/20/20 06:00 05/20/20 06:00 05/20/20 06:00 05/20/20 06:00 Oxygen Flow Rate (L/min) 60 Oxygen Delivery Method Mechanical Ventilator Weight: 283 lb 15.286 oz Body Mass Index (BMI) 42.2 Finger Stick Blood Glucose 161 Intake and Output for Last 24 Hours 05/18/20 05/19/20 05/20/20 23:59 23:59 23:59 Intake Total 3533.58 / 4008.98 3599.83 / 3614.26 387.69 / 387.69 Output Total 2350 / 2700 1885 / 1885 450 / 450 Balance 1183.58 / 1308.98 1714.83 / 1729.26 -62.31 / -62.31 Labs (Last 48 Hours) 05/18/20 05/18/20 05/18/20 05:58 12:16 17:18 WBC RBC Hgb Hct MCV MCH MCHC RDW Std Deviation RDW Coeff of Taras Plt Count MPV Immature Gran % (Auto) Neut % (Auto) Lymph % (Auto) Clayton % (Auto) Eos % (Auto) Baso % (Auto) Absolute Neuts (auto) Absolute Lymphs (auto) Nucleated RBC % Diff Path Review Platelet Estimate Sodium Potassium Chloride Carbon Dioxide Anion Gap BUN Creatinine Estim Creat Clear Calc Est GFR (MDRD) Af Amer Est GFR (MDRD) Non-Af BUN/Creatinine Ratio Glucose Calcium Total Bilirubin AST ALT Alkaline Phosphatase Total Creatine Kinase Total Protein Albumin Globulin Albumin/Globulin Ratio Triglycerides POC Glucose 167 H 158 H 191 H 05/19/20 05/19/20 05/19/20 01:07 04:30 04:30 WBC 6.2 RBC 4.23 L Hgb 13.1 Hct 40.7 MCV 96.2 H MCH 31.0 MCHC 32.2 RDW Std Deviation 49.9 H RDW Coeff of Taras 14.4 Plt Count 45 L* MPV 12.3 H Immature Gran % (Auto) 1.100 H Neut % (Auto) 73.0 H Lymph % (Auto) 15.4 L Clayton % (Auto) 8.4 Eos % (Auto) 1.9 Baso % (Auto) 0.2 Absolute Neuts (auto) 4.5 Absolute Lymphs (auto) 0.95 Nucleated RBC % 0 [address] Review Reviewed Platelet Estimate ADEQUATE Sodium Cancelled Potassium Cancelled Chloride Cancelled Carbon Dioxide Cancelled Anion Gap Cancelled BUN Cancelled Creatinine Cancelled Estim Creat Clear Calc Cancelled Est GFR (MDRD) Af Amer Cancelled Est GFR (MDRD) Non-Af Cancelled BUN/Creatinine Ratio Cancelled Glucose Cancelled Calcium Cancelled Total Bilirubin Cancelled AST Cancelled ALT Cancelled Alkaline Phosphatase Cancelled Total Creatine Kinase Total Protein Cancelled Albumin Cancelled Globulin Cancelled Albumin/Globulin Ratio Cancelled Triglycerides POC Glucose 189 H 05/19/20 05/19/20 05/19/20 05:00 05:00 05:15 WBC RBC Hgb Hct MCV MCH MCHC RDW Std Deviation RDW Coeff of Taras Plt Count MPV Immature Gran % (Auto) Neut % (Auto) Lymph % (Auto) Clayton % (Auto) Eos % (Auto) Baso % (Auto) Absolute Neuts (auto) Absolute Lymphs (auto) Nucleated RBC % Diff Path Review Platelet Estimate Sodium 143 Potassium 4.9 Chloride 107 Carbon Dioxide 33.0 H Anion Gap 3 L BUN 51 H Creatinine 0.81 Estim Creat Clear Calc 75.48 Est GFR (MDRD) Af Amer 120 Est GFR (MDRD) Non-Af 99 BUN/Creatinine Ratio 62.7 H Glucose 203 H Calcium 8.4 L Total Bilirubin 1.20 H AST 73 H ALT 106 H Alkaline Phosphatase 202 H Total Creatine Kinase 50 Total Protein 6.4 Albumin 1.6 L Globulin 4.8 H Albumin/Globulin Ratio 0.3 L Triglycerides 81 POC Glucose 178 H 05/19/20 05/19/20 05/19/20 11:03 17:58 23:27 WBC RBC Hgb Hct MCV MCH MCHC RDW Std Deviation RDW Coeff of Taras Plt Count MPV Immature Gran % (Auto) Neut % (Auto) Lymph % (Auto) Clayton % (Auto) Eos % (Auto) Baso % (Auto) Absolute Neuts (auto) Absolute Lymphs (auto) Nucleated RBC % Diff Path Review Platelet Estimate Sodium Potassium Chloride Carbon Dioxide Anion Gap BUN Creatinine Estim Creat Clear Calc Est GFR (MDRD) Af Amer Est GFR (MDRD) Non-Af BUN/Creatinine Ratio Glucose Calcium Total Bilirubin AST ALT Alkaline Phosphatase Total Creatine Kinase Total Protein Albumin Globulin Albumin/Globulin Ratio Triglycerides POC Glucose 147 H 161 H 127 H 05/20/20 05/20/20 05/20/20 04:05 04:05 05:18 WBC 7.6 RBC 3.85 L Hgb 11.9 L Hct 36.8 L MCV 95.6 H MCH 30.9 MCHC 32.3 RDW Std Deviation 49.8 H RDW Coeff of Taras 14.6 Plt Count 51 L MPV 12.0 Immature Gran % (Auto) 2.100 H Neut % (Auto) 74.2 H Lymph % (Auto) 13.3 L Clayton % (Auto) 8.3 Eos % (Auto) 1.7 Baso % (Auto) 0.4 Absolute Neuts (auto) 5.6 Absolute Lymphs (auto) 1.01 Nucleated RBC % 0 [address] Review Platelet Estimate Sodium 145 Potassium 4.3 Chloride 109 H Carbon Dioxide 33.0 H Anion Gap 3 L BUN 52 H Creatinine 0.72 Estim Creat Clear Calc 61.14 Est GFR (MDRD) Af Amer 138 Est GFR (MDRD) Non-Af 114 BUN/Creatinine Ratio 72.1 H Glucose 103 Calcium 8.1 L Total Bilirubin 1.20 H AST 81 H ALT 101 H Alkaline Phosphatase 191 H Total Creatine Kinase Total Protein 5.9 L Albumin 1.4 L Globulin 4.5 H Albumin/Globulin Ratio 0.3 L Triglycerides POC Glucose 93 Microbiology 05/15/20 15:00 Sputum, Induced/Lukens Gram Stain - Final 05/15/20 15:00 Sputum, Induced/Lukens Respiratory Culture - Final Clinical Impression(s) from Imaging Studies Chest X-Ray 05/03/20 08:55 IMPRESSION: Minimal increased markings at the left lung base with blunting of left costophrenic angle. There has been no change since prior study. Electronically Signed: Casimiro Marie MD at 9:09 EST , Service support , Chest CTA 05/03/20 09:36 IMPRESSION: Multiple bilateral pulmonary emboli involving branches of the lower lobe pulmonary arteries. Multiple bilateral pulmonary infiltrates as described. Splenomegaly. Electronically Signed: Casimiro Marie MD at 10:41 EST , Service support , Chest X-Ray 05/10/20 13:01 IMPRESSION: Patchy bilateral pulmonary infiltrates in a peripheral distribution worse in the left hemithorax. Findings are in keeping with Covid. Electronically Signed: Casimiro Marie MD at 13:48 EST , Service support , Chest X-Ray 05/12/20 09:35 IMPRESSION: The tip of the endotracheal tube is at 4.5 cm proximal to the adonis. Stable bilateral patchy pulmonary infiltrates in a peripheral distribution. Electronically Signed: Casimiro Marie MD at 10:45 EST , Service support , Chest X-Ray 05/12/20 16:43 IMPRESSION: 1. Interval placement of left-sided PICC line with the tip within the mid SVC. No pneumothorax. 2. No significant interval change of cardiopulmonary status. at 1824 Reported and signed by: Keagan Hensley MD Electronically Signed: Keagan Hensley MD at 18:23 EST Tel , Service support , Chest X-Ray 05/14/20 05:17 IMPRESSION: Support apparatus as above. Diffuse pulmonary infiltrates. Nonspecific however can be seen with infectious inflammatory process. Findings can be seen with an atypical viral infectious process given patient''s history. Recommend follow-up imaging to resolution. No significant change in the appearance of the lungs. Electronically Signed: Dennis Baldwin MD at 6:32 EST Tel , Service support , Medical Necessity - Tobacco Use Smoking Status: Never smoker Assessment/Plan All Active Problems Hyperglycemia due to diabetes mellitus (Acute) COVID-19 (Acute) Hypoxemia (Acute) Pulmonary embolism (Acute) Sepsis (Acute) History of cholecystectomy (Resolved) Shortness of breath (Acute) RECOMMENDATIONS: 1. Continue to wean FiO2 and PEEP to maintain saturations at or above 90%. 2. Continue Decadron as ordered. 3. Continue to hold all forms of systemic anticoagulation over concerns for GI blood loss. 4. Continue PPI therapy twice daily. 5. Continue tube feeds as tolerated. 6. Continue Lantus and sliding scale insulin coverage. 7. Ongoing goals of care discussions with the patient's . IMPRESSIONS: 1. Acute hypoxemic respiratory failure secondary to COVID-19 pneumonia and bilateral pulmonary emboli The patient was initially admitted to the hospital and diagnosed with COVID-19 pneumonia and bilateral pulmonary emboli. Over the course of his hospitalization, the patient continued to decompensate from a respiratory perspective, requiring increasing amounts of supplemental oxygen. The patient eventually required intubation on May 12. Plan to continue the patient on assist control mode of mechanical ventilation and wean FiO2 and PEEP to maintain saturations at or above 90%. The patient has completed a treatment course of remdesivir and will remain on Decadron. The patient was also treated with antibiotics given Haemophilus isolated from sputum culture. Although the patient was initially started on Eliquis, his systemic anticoagulation was discontinued over concerns for possible lower GI bleeding. 2. Melena/occult blood positive stools Plan to continue current supportive measures with twice daily PPI therapy. The patient is unable to tolerate any form of systemic anticoagulation without developing increased GI blood loss. Continue to monitor H&H daily. No current indication for transfusion of blood products. 3. Diabetes mellitus/hypertension/hyperlipidemia/BPH/obesity/paroxysmal atrial fibrillation Complicates care, management, recovery and prognosis. Continue home medications as indicated. Physical therapy to work with the patient as tolerated. Continue Lantus and sliding scale insulin coverage. TIME: 35 minutes of critical care time, independent of procedures, was spent addressing the patient's acute hypoxemic respiratory failure, COVID-19 pneumonia, pulmonary emboli, possible lower GI bleeding, review of all data and collaboration with the care team. [id number]) [id number] Critical care first hour
[2020-05-20 07:11] LABS: Allen Test Positive; Base Excess 8 mmol/L (-2 to +2); Bicarbonate 30.9 mmol/L (22-26); Blood Gas Specimen Type ART; FI02 55; Mode AC; O2 Delivery Device Adult Vent; PEEP 5; PO2 62 mmHG (75-100); RR 12; SITE L Radial; SO2 94 % (95-99); Total Carbon Dioxide 32 mmol/L; Vt 450; pCO2 38.5 mmHg (35-45); pH 7.51 (7.35-7.45)
--- NOTE | 2020-05-20 07:11 | PN_ITS ---
Patient Problems: Active and Suspected Problems Hyperglycemia due to diabetes mellitus (Acute) COVID-19 (Acute) Hypoxemia (Acute) Pulmonary embolism (Acute) Sepsis (Acute) Shortness of breath (Acute) Intraperitoneal bleeding (Suspected) Subjective: Patient became bradycardic with precedex and was transitioned back to propofol. He had onset of tachycardia following sedation hold for spontaneous breathing trial with significant tachypnea in addition prompting reinitiation of sedation. Patient FiO2 requirement additionally increased overnight. Patient with 2 stools overnight and continues to have maroon color. Patient with continued low-grade temperatures overnight, mild hypotension but no obvious evidence of chills, nausea, emesis, abdominal pain, chest pain. Objective: Physical Examination: General: Sedated, intubated, no obvious distress, laying in the ICU bed, NAD, sedation has been resumed, patient will awaken currently to some stimuli. Skin: normal color, turgor, no icterus, cyanosis. HEENT: AT/NC, EOM unable to be assessed given sedated status as noted, PERRLA, mildly dry MM, ET tube and OG tube in place. Lungs: Diminished breath sounds, greater bases, symmetric rise, intubated, sedated, no obvious rales, rhonchi or wheezing currently. Heart: Regular rate and rhythm; no gallop, rub audible. Abdomen: soft, overly obese, NTTP, ND, continued mildly hyperactive bowel sounds. Extremities: no cyanosis or clubbing, mild bilateral ankle and hand nonpitting edema. Neurological: Patient sedated, intubated, will awaken to some stimuli, not able to answer orientation questions, cognitive function not baseline intact, pupils equally reactive to light and accomodation; cranial nerves unable to be assessed given sedated status, not moving extremities to withdrawal, strength accordingly severely globally decreased. Psychiatric: affect appears flat, does awaken to some stimuli, not agitated, no acute evidence of depressive or anxiety feelings. Vitals/I&O's: Vital Signs Temp Pulse Resp BP Pulse Ox 99.9 F H 107 H 27 H 179/82 H 90 05/20/20 06:00 05/20/20 06:45 05/20/20 06:45 05/20/20 06:00 05/20/20 06:45 Oxygen Flow Rate (L/min) 60 Oxygen Delivery Method Mechanical Ventilator Weight: 283 lb 15.286 oz Body Mass Index (BMI) 42.2 Finger Stick Blood Glucose 161 Intake and Output for Last 24 Hours 05/18/20 05/19/20 05/20/20 23:59 23:59 23:59 Intake Total 3533.58 / 4008.98 3599.83 / 3614.26 399.33 / 399.33 Output Total 2350 / 2700 1885 / 1885 450 / 450 Balance 1183.58 / 1308.98 1714.83 / 1729.26 -50.67 / -50.67 Microbiology Past 72 Hours 05/15/20 15:00 Sputum, Induced/Lukens Gram Stain - Final 05/15/20 15:00 Sputum, Induced/Lukens Respiratory Culture - Final Laboratory Results 05/19/20 04:30: Diff Path Review Reviewed 05/19/20 05:00: Total Creatine Kinase 50, Triglycerides 81 05/19/20 11:03: POC Glucose 147 H 05/19/20 17:58: POC Glucose 161 H 05/19/20 23:27: POC Glucose 127 H 05/20/20 04:05: WBC 7.6, RBC 3.85 L, Hgb 11.9 L, Hct 36.8 L, MCV 95.6 H, MCH 30.9, MCHC 32.3, RDW Std Deviation 49.8 H, RDW Coeff of Taras 14.6, Plt Count 51 L , MPV 12.0, Immature Gran % (Auto) 2.100 H, Neut % (Auto) 74.2 H, Lymph % (Auto) 13.3 L, Estill % (Auto) 8.3, Eos % (Auto) 1.7, Baso % (Auto) 0.4, Absolute Neuts (auto) 5.6, Absolute Lymphs (auto) 1.01, Nucleated RBC % 0 05/20/20 04:05: Sodium 145, Potassium 4.3, Chloride 109 H, Carbon Dioxide 33.0 H , Anion Gap 3 L, BUN 52 H, Creatinine 0.72, Estim Creat Clear Calc 61.14, Est GFR (MDRD) Af Amer 138, Est GFR (MDRD) Non-Af 114, BUN/Creatinine Ratio 72.1 H, Glucose 103, Calcium 8.1 L, Total Bilirubin 1.20 H, AST 81 H, ALT 101 H, Alkaline Phosphatase 191 H, Total Protein 5.9 L, Albumin 1.4 L, Globulin 4.5 H, Albumin/Globulin Ratio 0.3 L 05/20/20 05:18: POC Glucose 93 05/20/20 07:02: Specimen Type ART, Sample Site L Radial, pH 7.51 H, Bicarbonate Actual 30.9 H, Total CO2 32, Base Excess 8 H, O2 Saturation 94 L, O2 % 55, ABG pCO2 38.5, ABG pO2 62 L, Agapito Test Positive, Respiration Rate 12, O2 Delivery Device Adult Vent, Vent Mode AC, Tidal Volume 450, POC PEEP 5 Current Medications Acetaminophen (Acetaminophen 650 Mg/20 Ml Udc) 650 mg GT Q6H PRN PRN PRN Reason: Pain Score 1-10/Temp > 100.7 F Al Hydroxide/Mg Hydroxide (Mag Hydrox/Al Hydrox/Simeth 30 Ml Udc) 30 ml GT Q6H PRN PRN PRN Reason: Gastric Burning Albuterol Sulfate (Albuterol Ih 8.5 Gm (Proair) Inhaler (200 Puffs)) 2.5 puff INHALATION Q2H PRN PRN PRN Reason: Shortness of Breath/Wheezing Last Admin: 05/09/20 18:57 Dose: 2.5 puff Documented by: Atorvastatin Calcium (Atorvastatin Calcium 20 Mg Tablet) 20 mg GT QHS [facility] Last Admin: 05/19/20 21:13 Dose: 20 mg Documented by: Calamine/Phenol (Menthol/Lanolin/Calamine/Znox 113 Gm Tube) 1 applic TOPICAL TID [facility]; Protocol Last Admin: 05/20/20 05:23 Dose: 1 applicatio Documented by: Chlorhexidine Gluconate (Chlorhexidine 15 Ml) 15 ml PO BID [facility] Last Admin: 05/19/20 21:20 Dose: 15 ml Documented by: Chlorhexidine Gluconate (Chlorhexidine Gluc 2% Cloth 1 Each Towelette) 1 each TOPICAL DAILY [facility] Last Admin: 05/20/20 00:03 Dose: 1 each Documented by: Cholecalciferol (Cholecalciferol (Vit D3) 1,000 Unit (25mcg)) 1,000 unit GT BID [facility] Last Admin: 05/19/20 21:13 Dose: 1,000 unit Documented by: Cyanocobalamin (Cyanocobalamin 500 Mcg Tablet) 1,000 mcg GT DAILY [facility] Last Admin: 05/19/20 08:34 Dose: 1,000 mcg Documented by: Dexamethasone (Dexamethasone 4 Mg Tablet) 6 mg GT DAILY [facility]ERTH[facility] Stop: 05/21/20 10:01 Last Admin: 05/19/20 08:34 Dose: 6 mg Documented by: Dextrose (Dextrose 50%-Water 25 Gm/50 Ml Disp.Syrin) 0 gm IV X1 PRN; Protocol PRN Reason: Hypoglycemia Last Admin: 05/11/20 03:54 Dose: 12.5 gm Documented by: Glucagon (Glucagon 1 Mg/Ml Syringe) 1 mg IM .X1 PRN PRN Reason: Hypoglycemia Sodium Chloride () 250 mls @ 15 mls/hr IV .[id number] PRN PRN Reason: Saline Flush Last Infusion: 05/18/20 19:27 Dose: Infused Documented by: Sodium Chloride () 250 mls @ 15 mls/hr IV .[id number] PRN PRN Reason: Additional IVPB Infusion Propofol (Diprivan) 1,000 mg in 100 mls @ 7.728 mls/hr CONT INF .Q12H [facility]; Protocol Last Titration: 05/20/20 06:45 Dose: 20 mcg/kg/min, 15.5 mls/hr Documented by: Fentanyl Citrate 1,000 mcg/ (Sodium Chloride) 100 mls @ 5 mls/hr CONT INF .Q20H [facility]; Protocol Last Titration: 05/20/20 06:00 Dose: 125 mcg/hr, 12.5 mls/hr Documented by: Enteral Nutritional Formula (Vital High Protein) 1,000 mls @ 65 mls/hr GT .[id number] [facility] Last Admin: 05/20/20 04:02 Dose: 65 mls/hr Documented by: Pantoprazole Sodium 40 mg/ (Sodium Chloride) 110 mls @ 330 mls/hr IV Q12 [facility] Last Infusion: 05/19/20 21:40 Dose: Infused Documented by: Insulin Glargine (Insulin Glargine 100 Units/Ml Pen) 120 units SC BID@0000,1200 [facility] Last Admin: 05/19/20 23:28 Dose: 120 units Documented by: Insulin Human Lispro (Insulin Lispro 100 Unit/Ml Insuln.Pen) 0 unit SC Q6 [facility]; Protocol Last Admin: 05/20/20 05:23 Dose: Not Given Documented by: Magnesium Hydroxide (Magnesium Hydroxide 30 Ml Udc) 30 ml GT DAILY PRN PRN PRN Reason: Constipation Last Admin: 05/15/20 05:54 Dose: 30 ml Documented by: Melatonin (Melatonin 3 Mg Tablet) 3 mg PO QHS PRN PRN PRN Reason: INSOMNIA Last Admin: 05/11/20 21:42 Dose: 3 mg Documented by: Nitroglycerin (Nitroglycerin (Inpatient Use) 0.4 Mg Tab.Subl) 0.4 mg SUBLINGUAL Q5M PRN PRN Reason: CARDIAC/CHEST PAIN Nystatin (Nystatin Powder 15gm Bottle) 1 applic TOPICAL TID [facility]; Protocol Last Admin: 05/20/20 05:22 Dose: 1 applicatio Documented by: Ondansetron HCl (Ondansetron 4 Mg/2 Ml Vial) 4 mg IV Q8H PRN PRN PRN Reason: NAUSEA/VOMITING Last Admin: 05/11/20 09:14 Dose: 4 mg Documented by: Polyethylene Glycol (Polyethylene Glycol 3350 17 Gm Packet) 17 gm PO DAILY PRN PRN Reason: CONSTIPATION Prochlorperazine Edisylate (Prochlorperazine 10 Mg/2 Ml Vial) 5 mg IV Q4H PRN PRN PRN Reason: Breakthrough nausea/vomiting Quetiapine Fumarate (Quetiapine 25 Mg Tablet) 25 mg GT BID [facility] Last Admin: 05/19/20 21:13 Dose: 25 mg Documented by: Senna/Docusate Sodium (Senna/Docusate Sodium 1 Tablet) 2 tablet GT BID PRN PRN Reason: CONSTIPATION Sodium Chloride (0.9% Saline Lock 10 Ml Syringe) 10 - 40 ml IV UD PRN PRN Reason: SALINE FLUSH Last Admin: 05/20/20 04:02 Dose: 30 ml Documented by: Sodium Chloride (Sodium Chloride 0.65% 1 [place].Btl) 2 spray NASAL TID PRN PRN PRN Reason: NASAL DRYNESS Last Admin: 05/06/20 21:47 Dose: 2 spray Documented by: STROKE Vital Signs/Narrative: Vital Signs Temp Pulse Resp BP Pulse Ox 05/20/20 06:45 107 H 27 H 90 05/20/20 06:00 99.9 F H 118 H 29 H 179/82 H 90 05/20/20 05:00 99.6 F H 110 H 22 H 134/51 H 90 05/20/20 04:27 117 H 24 H 91 05/20/20 04:00 99.6 F H 81 17 117/45 L 89 Medical Necessity - Tobacco Use Smoking Status: Never smoker Assessment/Plan All Active Problems Hyperglycemia due to diabetes mellitus (Acute) COVID-19 (Acute) Hypoxemia (Acute) Pulmonary embolism (Acute) Sepsis (Acute) History of cholecystectomy (Resolved) Shortness of breath (Acute) The patient is a 69 y/o M w/ PMHx: Chronic Thrombocytopenia, Morbid Obesity, HTN, HLD, Diabetes mellitus type II, PAF, MARIELLE, BPH who presents to the [facility] ED on 05/03/20 with history of Covid diagnosis on 04/27/2020 per PCP office with worsening symptoms despite discharged home at that time on Decadron with progressively worsening dyspnea, headache, fatigue, fever, chills. 1. Acute hypoxic respiratory failure secondary to acute bilateral pneumonia and bilateral pulmonary emboli secondary to acute COVID-19 viral syndrome: Following admission patient with continued decompensation requiring eventual intubation 05/12/2020, evaluated by cryptologist and infectious disease with completion of remdesivir regimen, continued on Decadron with plan to continue 10-day course, treated also initially with antibiotics for sputum culture with noted Haemophilus, transitioned to Eliquis from Pradaxa secondary to bilateral PE however significant concerns as noted with possible GI bleeding although hemoglobin had remained stable therefore discontinued, 05/17/2020 transitioned to heparin drip which failed with onset bloody output via OG however Hgb remained stable despite this onset. Continued sedation with vent management per cryptologist, continue tube feeds currently at goal, continue both Lantus and insulin sliding scale coverage per tube feed protocols, 05/18/20 IV scheduled lasix intention per ICU; however, patient with resulting hypotension thus diuresis held. Family 05/17/2020 noting would likely defer trach or PEG if patient is unable to be extubated. 05/19/2020 attempted transition off propofol to Precedex and Seroquel; however, significant bradycardia and agitation with resumption of propofol and fentanyl. 05/19/20-05/20/20 increased FiO2, low grade T, failed AM SBT. 2 weeks intubation deon 05/26/20, will continue SBT; however, given increased requirements some concerns about extubation potential. Family remains specific about no intention for trach/peg. 2. Acute GI bleed with melanotic stools noted to be occult blood positive: Continue patient on twice daily high-dose PPI, had been on Pradaxa prior to presentation with transition to Eliquis given noted bilateral PE however onset of concerning GI bleed therefore this had been discontinued, given significant presentation, high risk planned reinitiation anticoagulation with heparin drip with close monitoring with noted blood output via OG thus discontinued. Admission 05/03/2020 hemoglobin 13.6, 05/17/2020 11.9-->05/20/20 CBC w/ Hgb 11.9, Plts 51. 3. Acute on Chronic thrombocytopenia: Admission platelets 56, improved following anticoagulation hold however despite this hold trended down again with noted 05/17/2020 platelets 56, heparin drip trial as noted 05/17/20 failed, 05/20/20 CBC w/ plts 51, continue to closely monitor. Prior baseline platelets appeared primarily 60-80. 4. Elevated LFTs: Admission 05/03/2020 AST/ALT 26/28, alk phos 68 with eventual rise starting on 05/13/2020 with total bilirubin 1.40, AST/ALT 53/78, alk phos 119-->05/20/2020 total bilirubin 1.20, AST/ALT 81/101, alk phos 191, likely secondary to acute presentation as noted #1, continue to closely trend. 5. Diabetes mellitus type II with hyperglycemia secondary to #1 with steroid usage as noted: Hold oral home regimen, continue altered insulin regimen currently insulin glargine 120 units subcu twice daily, currently on tube feeds, continue accu checks w/ ISS per tube feed protocols. BS currently 150-200. 6. PAF: Previously on Pradaxa, discontinued and transition to Eliquis upon presentation as noted with #1 however held given #2, currently attempting heparin drip with continued close monitoring as noted, not on rate or rhythm agent currently. 7. Hypertension: BPs remain low normal, outpatient normally on atenolol, losartan which were both held, resume if clinically appropriate. 8. Hyperlipidemia: We will continue patient statin therapy. 9. Morbid Obesity: Weight loss and lifestyle changes will be encouraged once patient becomes cognizant/extubated if appropriate, nutrition consulted and following as noted for tube feeds. 10. MARIELLE: Currently intubated and sedated as noted above. 11. GERD: Currently on IV PPI as noted above. 12. DVT prophylaxis: SCDs, heparin drip unsuccessful, not anticoagulated. 13. CODE STATUS: Full code currently however family reticent to perform trach and PEG therefore likely if unable to be extubated would have transition of CODE STATUS if intubation ongoing to 05/26/20. Inpatient E&M: [id number] [facility] L3
[2020-05-20] MEDS: Chlorhexidine 15 ML PO ×2 (07:58→21:47)
[2020-05-20] MEDS: Acetaminophen 650 MG/20 ML UDC GT (08:00)
[2020-05-20] MEDS: Furosemide 40 MG/4 ML Vial IV (08:55)
[2020-05-20] MEDS: dexAMETHasone 4 MG Tablet 6 MG GT (10:03)
[2020-05-20] MEDS: QUEtiapine 25 MG Tablet 50 MG GT ×2 (10:03→21:40)
[2020-05-20] MEDS: Cyanocobalamin 500 MCG Tablet 1000 MCG GT (10:03)
[2020-05-20 11:10] LABS: Bedside Glucose 101 mg/dL (70-110)
[2020-05-20] MEDS: Propofol 10MG/Ml 1,000 MG/100 ML Bottle 7.7 MG CONT INF (12:44)
--- NOTE | 2020-05-20 13:29 | CASEMGMT ---
Social Work SW attended ICU rounds. Pt continues to be intubated. Discussed benefit of family visit with team which is agreeable for to come in. Phone call to pt Louise and informed she can visit pt today. Luoise in and with pt. SW met with Louise in room and offered emotional support. Louise tearful throughout conversation. States she has talked to physician and nursing and is understanding of pt prognosis. Louise states their daughter who lives in [place] will be arriving on Sunday and will be assisting Louise in making decisions concerning pt care. Louise advised that SW will remain available for additional support as needed. SW to continue to follow. MIKE Skinner
--- NOTE | 2020-05-20 14:49 | CHAPLAIN ---
Type of Pastoral Visit _x__ Initial Visit ___ Follow-up Visit ___ On-call Visit ___ General Patient Visit ___ Spiritual Assessment ___ Family Conference ___ Bereavement ___ Rapid Response ___ Code Blue ___ Other (describe below) Pastoral Care Referral From ___ Patient ___ Family _x__ Nurse ___ Physician ___ Advertising Strategist ___ Health Care Manager ___ Other (describe below) Sacrament/Intervention _x__ Active listening ___ Anointing ___ Roman Catholic ___ Bereavement ___ Communion _x__ Shelia exploration ___ _x__ Life review _x__ Prayer ___ Reconciliation ___ Sacrament of Sick _x__ Supportive presence ___ Wedding ___ Other (describe below) Pastoral Comments request by RN for support to spouse of this patient as spouse is in the room for first time with patient since his admission; spouse is very welcoming of presence and spiritual/emotional support; spouse talks of patient and his interests, his shelia, and his service to others; spouse expresses the difficulty of the situation and that her shelia and support/prayers of many others are what help her in this time; DR enters room to talk with spouse; spouse is tearful; continual presence and offer of support given to spouse; prayer is requested; offer of future support given
[2020-05-20] MEDS: Insulin Lispro 100 UNIT/ML INSULN.PEN SC ×2 (17:10→23:13)
[2020-05-20 17:16] LABS: Bedside Glucose 170 mg/dL (70-110)
[2020-05-20] MEDS: Propofol 10MG/Ml 1,000 MG/100 ML Bottle 11.6 MG CONT INF (20:35)
[2020-05-20] MEDS: Atorvastatin Calcium 20 MG Tablet GT (21:40)
[2020-05-20 23:25] LABS: Bedside Glucose 159 mg/dL (70-110)
[2020-05-21] VITALS (37 sets, daily range): BP systolic 83–180; BP diastolic 35–85; PULSE 68–107; RESP 11–29; TEMP 37.2–37.8; O2SAT 90–97
[2020-05-21] MEDS: CHLORHEXIDINE GLUC 2% CLOTH 1 EACH TOWELETTE TOPICAL (03:34)
[2020-05-21 04:15] LABS: Absolute Lymphocyte Count 0.68 X10^3/uL (0.83-4.51); Absolute Neutrophil Count 2.8 X10^3/uL (2.0-7.7); Basophil# 0.01 X10^3/uL; Basophil% 0.3 % (0-1); Eosinophil# 0.07 X10^3/uL; Eosinophils% 1.8 % (0-5); Hematocrit 33.6 % (40-54); Hemoglobin 10.7 g/dL (13.0-16.5); Lymphocyte # 0.68 X10^3/ul (4.0); Lymphocyte % 17.2 % (19-41); Mean Corp Hgb Conc 31.8 g/dL (32-36); Mean Corpuscular Hgb 30.5 pg (27.0-32.0); Mean Corpuscular Volume 95.7 fL (80-94); Mean Platelet Vol. 11.8 fl (6.2-12.0); Monocyte# 0.37 X10^3/uL; Monocyte% 9.4 % (0-10); NRBC Flagged by Analyzer 0 % (0-5); Neutrophil # 2.78 X10^3/uL (2.7-7.7); Neutrophil % 70.3 % (47-70); POSITIVE COUNT YES; RBC Distribution Width CV 14.6 % (11.6-14.6); RBC Distribution Width SD 50.4 fl (35.1-43.9); Red Blood Count 3.51 M/mm3 (4.6-6.2)
[2020-05-21] MEDS: TITRATION PARAMETER CHANGE 1 EACH IV (04:18)
[2020-05-21] MEDS: 0.9% Saline Lock 10 ML Syringe IV ×2 (04:18→10:20)
[2020-05-21 04:22] LABS: Differential Indicated SCAN CRITERIA MET; Platelet Count 40 K/mm3 (150-450)
[2020-05-21 04:39] LABS: ALB/GLOB Ratio 0.3 RATIO (0.9-2.4); AST(SGOT) 72 U/L (15-37); Alanine Aminotransfer ALT/SGPT 92 U/L (16-61); Albumin, Serum 1.3 g/dL (3.2-5.0); Alkaline Phosphatase 169 U/L (45-117); Anion Gap 3 (5-15); BUN 50 mg/dL (7-18); Calcium,Total 7.8 mg/dL (8.5-10.1); Chloride 110 mmol/L (98-107); Creatinine, Serum 0.69 mg/dL (0.70-1.30); EST Glomerular Filtration Rate 119 mL/min (>60); Est Glom Filt Rate - Afr Amer 144 mL/min (>60); Estimated Creatinine Clearance 61.14 ml/min; Globulin 4.2 g/dL (2.2-4.2); Glucose 153 mg/dL (74-106); Potassium 4.3 mmol/L (3.5-5.1); Protein, Total 5.5 g/dL (6.4-8.2); Sodium Level 145 mmol/L (136-145)
[2020-05-21 04:41] LABS: Platelet Estimate MKD DEC (ADEQ)
[2020-05-21] MEDS: Nystatin Powder 15gm Bottle 1 APPLIC TOPICAL ×3 (05:32→21:11)
[2020-05-21] MEDS: Menthol/Lanolin/Calamine/Znox 113 GM Tube 1 APPLIC TOPICAL ×3 (05:32→21:11)
[2020-05-21 05:40] LABS: Bedside Glucose 142 mg/dL (70-110)
[2020-05-21] MEDS: Propofol 10MG/Ml 1,000 MG/100 ML Bottle 11.6 MG CONT INF ×2 (05:41→12:24)
--- NOTE | 2020-05-21 06:23 | PCM.PN.INT ---
Subjective: The patient was seen and examined at the bedside this morning. Events from the last 24 hours have been reviewed. The patient is currently afebrile, hemodynamically stable and maintaining appropriate oxygen saturations on assist control mode of mechanical ventilation with an FiO2 requirement of 40% and PEEP of 5. Although the patient did pass his spontaneous awakening trial this morning, he subsequently failed his SBT due to worsening hypoxia. The patient did have 2 brown bowel movements noted overnight by the nursing staff. He continues to tolerate tube feeds. Platelet count fell this morning to 40,000. Hemoglobin is stable at 10.7 g/dL. The patient was again given a one-time dose of Lasix yesterday, only to become hypotensive as a consequence. Objective: The patient's most recent lab work, culture data and imaging studies have all been personally reviewed. Sputum culture was positive for possible Haemophilus and group B streptococcus. General: - - Remains intubated, sedated and mechanically ventilated. HEENT: Atraumatic, PERRLA, Normocephalic Oral: No Gingival or Mucosal Lesions/ Ulcerations, - - Endotracheal and OG tubes remain in place Neck: Supple, No Nodes, Trachea Midline Lungs: No rhonchi, No wheeze, No rales, Diminished, Tachypneic Cardiovascular: Regular rate, Regular Rhythm Abdomen: Bowel Sounds Present, Soft, Non Tender, Obese Extremities: No clubbing, No cyanosis, No edema Skin: - - No significant change from previous Musculoskeletal: No Tenderness to Palpation of Joints or Extremities Lymphatic: No Cervical, Supraclavicular, or Inguinal Adenopathy Neurological: - - No focal deficits. Attempt to move extremities spontaneously. Still not following commands appropriately. Vital Signs Temp Pulse Resp BP Pulse Ox 99.6 F H 84 16 142/75 H 90 05/21/20 06:00 05/21/20 06:00 05/21/20 06:00 05/21/20 06:00 05/21/20 06:00 Oxygen Flow Rate (L/min) 60 Oxygen Delivery Method Mechanical Ventilator Weight: 285 lb 4.45 oz Body Mass Index (BMI) 42.2 Finger Stick Blood Glucose 161 Intake and Output for Last 24 Hours 05/19/20 05/20/20 05/21/20 23:59 23:59 23:59 Intake Total 3599.83 / 3614.26 2789.60 / 2798.80 505.67 / 505.67 Output Total 1885 / 1885 2300 / 2300 440 / 440 Balance 1714.83 / 1729.26 489.60 / 498.80 65.67 / 65.67 Labs (Last 48 Hours) 05/19/20 05/19/20 05/19/20 04:30 05:00 11:03 WBC RBC Hgb Hct MCV MCH MCHC RDW Std Deviation RDW Coeff of Taras Plt Count MPV Immature Gran % (Auto) Neut % (Auto) Lymph % (Auto) [place] % (Auto) Eos % (Auto) Baso % (Auto) Absolute Neuts (auto) Absolute Lymphs (auto) Nucleated RBC % Diff Path Review Reviewed Platelet Estimate Specimen Type Sample Site pH Bicarbonate Actual Total CO2 Base Excess O2 Saturation O2 % ABG pCO2 ABG pO2 Agapito Test Respiration Rate O2 Delivery Device Vent Mode Tidal Volume POC PEEP Sodium Potassium Chloride Carbon Dioxide Anion Gap BUN Creatinine Estim Creat Clear Calc Est GFR (MDRD) Af Amer Est GFR (MDRD) Non-Af BUN/Creatinine Ratio Glucose Calcium Total Bilirubin AST ALT Alkaline Phosphatase Total Creatine Kinase 50 Total Protein Albumin Globulin Albumin/Globulin Ratio Triglycerides 81 POC Glucose 147 H 05/19/20 05/19/20 05/20/20 17:58 23:27 04:05 WBC 7.6 RBC 3.85 L Hgb 11.9 L Hct 36.8 L MCV 95.6 H MCH 30.9 MCHC 32.3 RDW Std Deviation 49.8 H RDW Coeff of Taras 14.6 Plt Count 51 L MPV 12.0 Immature Gran % (Auto) 2.100 H Neut % (Auto) 74.2 H Lymph % (Auto) 13.3 L [place] % (Auto) 8.3 Eos % (Auto) 1.7 Baso % (Auto) 0.4 Absolute Neuts (auto) 5.6 Absolute Lymphs (auto) 1.01 Nucleated RBC % 0 Diff Path Review Platelet Estimate Specimen Type Sample Site pH Bicarbonate Actual Total CO2 Base Excess O2 Saturation O2 % ABG pCO2 ABG pO2 Agapito Test Respiration Rate O2 Delivery Device Vent Mode Tidal Volume POC PEEP Sodium Potassium Chloride Carbon Dioxide Anion Gap BUN Creatinine Estim Creat Clear Calc Est GFR (MDRD) Af Amer Est GFR (MDRD) Non-Af BUN/Creatinine Ratio Glucose Calcium Total Bilirubin AST ALT Alkaline Phosphatase Total Creatine Kinase Total Protein Albumin Globulin Albumin/Globulin Ratio Triglycerides POC Glucose 161 H 127 H 05/20/20 05/20/20 05/20/20 04:05 05:18 07:02 WBC RBC Hgb Hct MCV MCH MCHC RDW Std Deviation RDW Coeff of Taras Plt Count MPV Immature Gran % (Auto) Neut % (Auto) Lymph % (Auto) [place] % (Auto) Eos % (Auto) Baso % (Auto) Absolute Neuts (auto) Absolute Lymphs (auto) Nucleated RBC % Diff Path Review Platelet Estimate Specimen Type ART Sample Site L Radial pH 7.51 H Bicarbonate Actual 30.9 H Total CO2 32 Base Excess 8 H O2 Saturation 94 L O2 % 55 ABG pCO2 38.5 ABG pO2 62 L Agapito Test Positive Respiration Rate 12 O2 Delivery Device Adult Vent Vent Mode AC Tidal Volume 450 POC PEEP 5 Sodium 145 Potassium 4.3 Chloride 109 H Carbon Dioxide 33.0 H Anion Gap 3 L BUN 52 H Creatinine 0.72 Estim Creat Clear Calc 61.14 Est GFR (MDRD) Af Amer 138 Est GFR (MDRD) Non-Af 114 BUN/Creatinine Ratio 72.1 H Glucose 103 Calcium 8.1 L Total Bilirubin 1.20 H AST 81 H ALT 101 H Alkaline Phosphatase 191 H Total Creatine Kinase Total Protein 5.9 L Albumin 1.4 L Globulin 4.5 H Albumin/Globulin Ratio 0.3 L Triglycerides POC Glucose 93 05/20/20 05/20/20 05/20/20 11:03 17:10 23:10 WBC RBC Hgb Hct MCV MCH MCHC RDW Std Deviation RDW Coeff of Taras Plt Count MPV Immature Gran % (Auto) Neut % (Auto) Lymph % (Auto) [place] % (Auto) Eos % (Auto) Baso % (Auto) Absolute Neuts (auto) Absolute Lymphs (auto) Nucleated RBC % Diff Path Review Platelet Estimate Specimen Type Sample Site pH Bicarbonate Actual Total CO2 Base Excess O2 Saturation O2 % ABG pCO2 ABG pO2 Agapito Test Respiration Rate O2 Delivery Device Vent Mode Tidal Volume POC PEEP Sodium Potassium Chloride Carbon Dioxide Anion Gap BUN Creatinine Estim Creat Clear Calc Est GFR (MDRD) Af Amer Est GFR (MDRD) Non-Af BUN/Creatinine Ratio Glucose Calcium Total Bilirubin AST ALT Alkaline Phosphatase Total Creatine Kinase Total Protein Albumin Globulin Albumin/Globulin Ratio Triglycerides POC Glucose 101 170 H 159 H 05/21/20 05/21/20 05/21/20 04:10 04:10 05:28 WBC 4.0 L RBC 3.51 L Hgb 10.7 L Hct 33.6 L MCV 95.7 H MCH 30.5 MCHC 31.8 L RDW Std Deviation 50.4 H RDW Coeff of Taras 14.6 Plt Count 40 L* MPV 11.8 Immature Gran % (Auto) 1.000 H Neut % (Auto) 70.3 H Lymph % (Auto) 17.2 L [place] % (Auto) 9.4 Eos % (Auto) 1.8 Baso % (Auto) 0.3 Absolute Neuts (auto) 2.8 Absolute Lymphs (auto) 0.68 L Nucleated RBC % 0 Diff Path Review May foll Platelet Estimate MKD DEC Specimen Type Sample Site pH Bicarbonate Actual Total CO2 Base Excess O2 Saturation O2 % ABG pCO2 ABG pO2 Agapito Test Respiration Rate O2 Delivery Device Vent Mode Tidal Volume POC PEEP Sodium 145 Potassium 4.3 Chloride 110 H Carbon Dioxide 32.0 Anion Gap 3 L BUN 50 H Creatinine 0.69 L Estim Creat Clear Calc 61.14 Est GFR (MDRD) Af Amer 144 Est GFR (MDRD) Non-Af 119 BUN/Creatinine Ratio 72.0 H Glucose 153 H Calcium 7.8 L Total Bilirubin 0.90 AST 72 H ALT 92 H Alkaline Phosphatase 169 H Total Creatine Kinase Total Protein 5.5 L Albumin 1.3 L Globulin 4.2 Albumin/Globulin Ratio 0.3 L Triglycerides POC Glucose 142 H Clinical Impression(s) from Imaging Studies Chest X-Ray 05/03/20 08:55 IMPRESSION: Minimal increased markings at the left lung base with blunting of left costophrenic angle. There has been no change since prior study. Electronically Signed: Casimiro Marie MD at 9:09 EST , Service support , Chest CTA 05/03/20 09:36 IMPRESSION: Multiple bilateral pulmonary emboli involving branches of the lower lobe pulmonary arteries. Multiple bilateral pulmonary infiltrates as described. Splenomegaly. Electronically Signed: Casimiro Marie MD at 10:41 EST , Service support , Chest X-Ray 05/10/20 13:01 IMPRESSION: Patchy bilateral pulmonary infiltrates in a peripheral distribution worse in the left hemithorax. Findings are in keeping with Covid. Electronically Signed: Casimiro Marie MD at 13:48 EST , Service support , Chest X-Ray 05/12/20 09:35 IMPRESSION: The tip of the endotracheal tube is at 4.5 cm proximal to the adonis. Stable bilateral patchy pulmonary infiltrates in a peripheral distribution. Electronically Signed: Casimiro Marie MD at 10:45 EST , Service support , Chest X-Ray 05/12/20 16:43 IMPRESSION: 1. Interval placement of left-sided PICC line with the tip within the mid SVC. No pneumothorax. 2. No significant interval change of cardiopulmonary status. at 1824 Reported and signed by: Keagan Hensley MD Electronically Signed: Keagan Hensley MD at 18:23 EST Tel , Service support , Chest X-Ray 05/14/20 05:17 IMPRESSION: Support apparatus as above. Diffuse pulmonary infiltrates. Nonspecific however can be seen with infectious inflammatory process. Findings can be seen with an atypical viral infectious process given patient''s history. Recommend follow-up imaging to resolution. No significant change in the appearance of the lungs. Electronically Signed: Dennis Baldwin MD at 6:32 EST Tel , Service support , Medical Necessity - Tobacco Use Smoking Status: Never smoker Assessment/Plan All Active Problems Hyperglycemia due to diabetes mellitus (Acute) COVID-19 (Acute) Hypoxemia (Acute) Pulmonary embolism (Acute) Sepsis (Acute) History of cholecystectomy (Resolved) Shortness of breath (Acute) RECOMMENDATIONS: 1. Continue to wean FiO2 and PEEP to maintain saturations at or above 90%. 2. Continue Decadron as ordered. 3. Continue to hold all forms of systemic anticoagulation over concerns for GI blood loss. 4. Continue PPI therapy twice daily. 5. Continue tube feeds as tolerated. 6. Continue Lantus and sliding scale insulin coverage. 7. Given foul-smelling sputum noted by nursing staff and lack of overall clinical improvement, will start empiric antimicrobials. 8. Ongoing goals of care discussions with the patient's . IMPRESSIONS: 1. Acute hypoxemic respiratory failure secondary to COVID-19 pneumonia and bilateral pulmonary emboli The patient was initially admitted to the hospital and diagnosed with COVID-19 pneumonia and bilateral pulmonary emboli. Over the course of his hospitalization, the patient continued to decompensate from a respiratory perspective, requiring increasing amounts of supplemental oxygen. The patient eventually required intubation on May 12. Plan to continue the patient on assist control mode of mechanical ventilation and wean FiO2 and PEEP to maintain saturations at or above 90%. The patient has completed a treatment course of remdesivir and will remain on Decadron. The patient was also treated with antibiotics given Haemophilus isolated from sputum culture. Although the patient was initially started on Eliquis, his systemic anticoagulation was discontinued over concerns for possible lower GI bleeding. 2. Melena/occult blood positive stools Plan to continue current supportive measures with twice daily PPI therapy. The patient is unable to tolerate any form of systemic anticoagulation without developing increased GI blood loss. Continue to monitor H&H daily. No current indication for transfusion of blood products. 3. Diabetes mellitus/hypertension/hyperlipidemia/BPH/obesity/paroxysmal atrial fibrillation Complicates care, management, recovery and prognosis. Continue home medications as indicated. Physical therapy to work with the patient as tolerated. Continue Lantus and sliding scale insulin coverage. TIME: 34 minutes of critical care time, independent of procedures, was spent addressing the patient's acute hypoxemic respiratory failure, COVID-19 pneumonia, pulmonary emboli, possible lower GI bleeding, review of all data and collaboration with the care team. [id number]) [id number] Critical care first hour
--- NOTE | 2020-05-21 07:02 | PN_ITS ---
Patient Problems: Active and Suspected Problems Hyperglycemia due to diabetes mellitus (Acute) COVID-19 (Acute) Hypoxemia (Acute) Pulmonary embolism (Acute) Sepsis (Acute) Shortness of breath (Acute) Intraperitoneal bleeding (Suspected) Subjective: Patient overnight with no acute events per staff report continued on both fentanyl and propofol until weaning trial with improved toleration however eventually patient became significantly hypoxic therefore sedation and settings were resumed. Patient fortunately was able to decrease his FiO2 to 40%. Overnight patient with brown bowel movements per report with no obvious maroon- colored stools. Tube feeds remain at goal. Patient with administration of IV Lasix day prior however output still notable for positive balance and patient became hypotensive. Patient with ongoing low-grade temperatures. Patient without evidence evidence of chills, nausea, emesis, abdominal pain, chest pain. Objective: Physical Examination: General: Sedated, intubated, no obvious distress, laying in the ICU bed, NAD, awakens to stimuli but very lethargic. Skin: normal color, turgor, no icterus, cyanosis. HEENT: AT/NC, EOM unable to be assessed given sedated status as noted although does awaken to stimuli today, PERRLA, mildly dry MM, ET tube and OG tube in place. Lungs: Diminished breath sounds, mildly coarse, symmetric rise, intubated, sedated, no obvious rales or wheezing currently. Heart: Regular rate and rhythm; no gallop, rub audible. Abdomen: soft, overly obese, NTTP, ND, normalize bowel sounds currently. Extremities: no cyanosis or clubbing, mild bilateral ankle and hand nonpitting edema. Neurological: Patient sedated, intubated, awakens to some stimuli today, not able to answer orientation questions, cognitive function not baseline intact, pupils equally reactive to light and accomodation; cranial nerves unable to be assessed given sedated status, not moving extremities to withdrawal, strength accordingly severely globally decreased. Psychiatric: affect appears flat, sedate, no acute evidence of depressive or anxiety feelings. Vitals/I&O's: Vital Signs Temp Pulse Resp BP Pulse Ox 99.6 F H 83 22 H 142/75 H 91 05/21/20 06:00 05/21/20 06:45 05/21/20 06:45 05/21/20 06:00 05/21/20 06:45 Oxygen Flow Rate (L/min) 60 Oxygen Delivery Method Mechanical Ventilator Weight: 285 lb 4.45 oz Body Mass Index (BMI) 42.2 Finger Stick Blood Glucose 161 Intake and Output for Last 24 Hours 05/19/20 05/20/20 05/21/20 23:59 23:59 23:59 Intake Total 3599.83 / 3614.26 2789.60 / 2798.80 508.57 / 508.57 Output Total 1885 / 1885 2300 / 2300 440 / 440 Balance 1714.83 / 1729.26 489.60 / 498.80 68.57 / 68.57 Microbiology Past 72 Hours 05/15/20 15:00 Sputum, Induced/Lukens Gram Stain - Final 05/15/20 15:00 Sputum, Induced/[place]ukens Respiratory Culture - Final Laboratory Results 05/20/20 07:02: Specimen Type ART, Sample Site L Radial, pH 7.51 H, Bicarbonate Actual 30.9 H, Total CO2 32, Base Excess 8 H, O2 Saturation 94 L, O2 % 55, ABG pCO2 38.5, ABG pO2 62 L, Agapito Test Positive, Respiration Rate 12, O2 Delivery Device Adult Vent, Vent Mode AC, Tidal Volume 450, POC PEEP 5 05/20/20 11:03: POC Glucose 101 05/20/20 17:10: POC Glucose 170 H 05/20/20 23:10: POC Glucose 159 H 05/21/20 04:10: WBC 4.0 L, RBC 3.51 L, Hgb 10.7 L, Hct 33.6 L, MCV 95.7 H, MCH 30.5, MCHC 31.8 L, RDW Std Deviation 50.4 H, RDW Coeff of Taras 14.6, Plt Count 40 L*, MPV 11.8, Immature Gran % (Auto) 1.000 H, Neut % (Auto) 70.3 H, Lymph % (Auto) 17.2 L, Ogle % (Auto) 9.4, Eos % (Auto) 1.8, Baso % (Auto) 0.3, Absolute Neuts (auto) 2.8, Absolute Lymphs (auto) 0.68 L, Nucleated RBC % 0, Diff Path Review August, Platelet Estimate MKD 05/21/20 04:10: Sodium 145, Potassium 4.3, Chloride 110 H, Carbon Dioxide 32.0, Anion Gap 3 L, BUN 50 H, Creatinine 0.69 L, Estim Creat Clear Calc 61.14, Est GFR (MDRD) Af Amer 144, Est GFR (MDRD) Non-Af 119, BUN/Creatinine Ratio 72.0 H, Glucose 153 H, Calcium 7.8 L, Total Bilirubin 0.90, AST 72 H, ALT 92 H, Alkaline Phosphatase 169 H, Total Protein 5.5 L, Albumin 1.3 L, Globulin 4.2, Albumin/Globulin Ratio 0.3 L 05/21/20 05:28: POC Glucose 142 H Current Medications Acetaminophen (Acetaminophen 650 Mg/20 Ml Udc) 650 mg GT Q6H PRN PRN PRN Reason: Pain Score 1-10/Temp > 100.7 F Last Admin: 05/20/20 08:00 Dose: 650 mg Documented by: Al Hydroxide/Mg Hydroxide (Mag Hydrox/Al Hydrox/Simeth 30 Ml Udc) 30 ml GT Q6H PRN PRN PRN Reason: Gastric Burning Albuterol Sulfate (Albuterol Ih 8.5 Gm (Proair) Inhaler (200 Puffs)) 2.5 puff INHALATION Q2H PRN PRN PRN Reason: Shortness of Breath/Wheezing Last Admin: 05/09/20 18:57 Dose: 2.5 puff Documented by: Atorvastatin Calcium (Atorvastatin Calcium 20 Mg Tablet) 20 mg GT QHS [facility] Last Admin: 05/20/20 21:40 Dose: 20 mg Documented by: Calamine/Phenol (Menthol/Lanolin/Calamine/Znox 113 Gm Tube) 1 applic TOPICAL TID KEERTHI; Protocol Last Admin: 05/21/20 05:32 Dose: 1 applicatio Documented by: Chlorhexidine Gluconate (Chlorhexidine 15 Ml) 15 ml PO BID [facility] Last Admin: 05/20/20 21:47 Dose: 15 ml Documented by: Chlorhexidine Gluconate (Chlorhexidine Gluc 2% Cloth 1 Each Towe[place]) 1 each TOPICAL DAILY [facility] Last Admin: 05/21/20 03:34 Dose: 1 each Documented by: Cholecalciferol (Cholecalciferol (Vit D3) 1,000 Unit (25mcg)) 1,000 unit GT BID [facility] Last Admin: 05/20/20 21:40 Dose: 1,000 unit Documented by: Cyanocobalamin (Cyanocobalamin 500 Mcg Tablet) 1,000 mcg GT DAILY KEERTHI Last Admin: 05/20/20 10:03 Dose: 1,000 mcg Documented by: Dexamethasone (Dexamethasone 4 Mg Tablet) 6 mg GT DAILY KEERTHI Stop: 05/21/20 10:01 Last Admin: 05/20/20 10:03 Dose: 6 mg Documented by: Dextrose (Dextrose 50%-Water 25 Gm/50 Ml Disp.Syrin) 0 gm IV X1 PRN; Protocol PRN Reason: Hypoglycemia Last Admin: 05/11/20 03:54 Dose: 12.5 gm Documented by: Glucagon (Glucagon 1 Mg/Ml Syringe) 1 mg IM .X1 PRN PRN Reason: Hypoglycemia Sodium Chloride () 250 mls @ 15 mls/hr IV .[id number] PRN PRN Reason: Saline Flush Last Infusion: 05/18/20 19:27 Dose: Infused Documented by: Sodium Chloride () 250 mls @ 15 mls/hr IV .[id number] PRN PRN Reason: Additional IVPB Infusion Propofol (Diprivan) 1,000 mg in 100 mls @ 7.764 mls/hr CONT INF .Q12H KEERTHI; Protocol Last Titration: 05/21/20 06:15 Dose: 15 mcg/kg/min, 11.6 mls/hr Documented by: Fentanyl Citrate 1,000 mcg/ (Sodium Chloride) 100 mls @ 5 mls/hr CONT INF .Q20H KEERTHI; Protocol Last Titration: 05/21/20 06:00 Dose: 125 mcg/hr, 12.5 mls/hr Documented by: Enteral Nutritional Formula (Vital High Protein) 1,000 mls @ 65 mls/hr GT .[id number] KEERTHI Last Admin: 05/20/20 21:44 Dose: 65 mls/hr Documented by: Pantoprazole Sodium 40 mg/ (Sodium Chloride) 110 mls @ 330 mls/hr IV Q12 [facility] Last Infusion: 05/20/20 22:05 Dose: Infused Documented by: Insulin Glargine (Insulin Glargine 100 Units/Ml Pen) 100 units SC BID [facility] Last Admin: 05/20/20 23:11 Dose: 100 u Documented by: Insulin Human Lispro (Insulin Lispro 100 Unit/Ml Insuln.Pen) 0 unit SC Q6 KEERTHI; Protocol Last Admin: 05/21/20 05:32 Dose: Not Given Documented by: Magnesium Hydroxide (Magnesium Hydroxide 30 Ml Udc) 30 ml GT DAILY PRN PRN PRN Reason: Constipation Last Admin: 05/15/20 05:54 Dose: 30 ml Documented by: Nitroglycerin (Nitroglycerin (Inpatient Use) 0.4 Mg Tab.Subl) 0.4 mg SUBLINGUAL Q5M PRN PRN Reason: CARDIAC/CHEST PAIN Nystatin (Nystatin Powder 15gm Bottle) 1 applic TOPICAL TID [facility]; Protocol Last Admin: 05/21/20 05:32 Dose: 1 applicatio Documented by: Ondansetron HCl (Ondansetron 4 Mg/2 Ml Vial) 4 mg IV Q8H PRN PRN PRN Reason: NAUSEA/VOMITING Last Admin: 05/11/20 09:14 Dose: 4 mg Documented by: Polyethylene Glycol (Polyethylene Glycol 3350 17 Gm Packet) 17 gm PO DAILY PRN PRN Reason: CONSTIPATION Prochlorperazine Edisylate (Prochlorperazine 10 Mg/2 Ml Vial) 5 mg IV Q4H PRN PRN PRN Reason: Breakthrough nausea/vomiting Quetiapine Fumarate (Quetiapine 25 Mg Tablet) 50 mg GT BID [facility] Last Admin: 05/20/20 21:40 Dose: 50 mg Documented by: Senna/Docusate Sodium (Senna/Docusate Sodium 1 Tablet) 2 tablet GT BID PRN PRN Reason: CONSTIPATION Sodium Chloride (0.9% Saline Lock 10 Ml Syringe) 10 - 40 ml IV UD PRN PRN Reason: SALINE FLUSH Last Admin: 05/21/20 04:18 Dose: 20 ml Documented by: Sodium Chloride (Sodium Chloride 0.65% 1 [place].Btl) 2 spray NASAL TID PRN PRN PRN Reason: NASAL DRYNESS Last Admin: 05/06/20 21:47 Dose: 2 spray Documented by: STROKE Vital Signs/Narrative: Vital Signs Temp Pulse Resp BP Pulse Ox 05/21/20 06:45 83 22 H 91 05/21/20 06:00 99.6 F H 84 16 142/75 H 90 05/21/20 05:00 99.4 F H 103 H 21 H 180/85 H 91 05/21/20 04:48 107 H 29 H 90 05/21/20 04:00 98.9 F 78 15 98/61 94 05/21/20 03:41 73 Medical Necessity - Tobacco Use Smoking Status: Never smoker Assessment/Plan All Active Problems Hyperglycemia due to diabetes mellitus (Acute) COVID-19 (Acute) Hypoxemia (Acute) Pulmonary embolism (Acute) Sepsis (Acute) History of cholecystectomy (Resolved) Shortness of breath (Acute) The patient is a 69 y/o M w/ PMHx: Chronic Thrombocytopenia, Morbid Obesity, HTN, HLD, Diabetes mellitus type II, PAF, MARIELLE, BPH who presents to the [facility] ED on 05/03/20 with history of Covid diagnosis on 04/27/2020 per PCP office with worsening symptoms despite discharged home at that time on Decadron with progressively worsening dyspnea, headache, fatigue, fever, chills. 1. Acute hypoxic respiratory failure secondary to acute bilateral pneumonia and bilateral pulmonary emboli secondary to acute COVID-19 viral syndrome: Following admission patient with continued decompensation requiring eventual intubation 05/12/2020, evaluated by technical support professional and infectious disease with completion of remdesivir regimen, continued on Decadron with plan to continue 10-day course, treated also initially with antibiotics for sputum culture with noted Haemophilus with 7-day course of Rocephin, transitioned to Eliquis from Pradaxa secondary to bilateral PE however significant concerns as noted with possible GI bleeding although hemoglobin had remained stable therefore discontinued, 05/17/2020 transitioned to heparin drip which failed with onset bloody output via OG however Hgb remained stable despite this onset. 05/18/20 IV scheduled lasix intention per ICU; however, patient with resulting hypotension thus diuresis held with occasional pulse dose Lasix times with recurrent hypotension. 05/19/2020 attempted transition off propofol to Precedex and Seroquel; however, significant bradycardia and agitation with resumption of propofol and fentanyl. 2 weeks intubation deon 05/26/20 and per discussion with family would attempt extubation at that time and institute comfort measures if declined with transition to to DNR CCA, no intubation status. Patient 05/21/2020 with ongoing low-grade temperature, coarse breath sounds with reported foul-smelling sputum patient initiated on IV Zosyn therapy, MRSA screen performed and negative. 2. Acute GI bleed with melanotic stools noted to be occult blood positive: Continue patient on twice daily high-dose PPI, had been on Pradaxa prior to presentation with transition to Eliquis given noted bilateral PE however onset of concerning GI bleed therefore this had been discontinued, given significant presentation, high risk planned reinitiation anticoagulation with heparin drip 05/17/2020 with close monitoring with noted blood output via OG thus discontinued. Admission 05/03/2020 hemoglobin 13.6, 05/17/2020 11.9-->05/21/20 CBC w/ Hgb 10.7, Plts 40. As noted 05/20/2020 overnight brown stools, hemoglobin however continu es to slowly decline. 3. Acute on Chronic thrombocytopenia: Admission platelets 56, improved following anticoagulation hold however despite this hold trended down again with noted 05/17/2020 platelets 56, heparin drip trial as noted 05/17/20 failed, 05/21/20 CBC w/ plts 40, continue to closely monitor. Prior baseline platelets appeared primarily 60-80. 4. Elevated LFTs: Admission 05/03/2020 AST/ALT 26/28, alk phos 68 with eventual rise starting on 05/13/2020 with total bilirubin 1.40, AST/ALT 53/78, alk phos 119-->05/21/2020 total bilirubin 0.90, AST/ALT 72/92, alk phos 169, likely secondary to acute presentation as noted #1, continue to closely trend. 5. Diabetes mellitus type II with hyperglycemia secondary to #1 with steroid usage as noted: Hold oral home regimen, continue altered insulin regimen currently insulin glargine 120 units subcu twice daily, currently on tube feeds, continue accu checks w/ ISS per tube feed protocols. BS currently 150-200. 6. PAF: Previously on Pradaxa, discontinued and transition to Eliquis upon presentation as noted with #1 however held given #2, currently attempting heparin drip with continued close monitoring as noted, not on rate or rhythm agent currently. 7. Hypertension: BPs remain low normal step following IV Lasix and ministration with hypotension transiently, outpatient normally on atenolol, losartan, continue to hold. 8. Hyperlipidemia: We will continue patient statin therapy. 9. Morbid Obesity: Weight loss and lifestyle changes will be encouraged once patient becomes cognizant/extubated if appropriate, nutrition consulted and f ollowing as noted for tube feeds. 10. MARIELLE: Currently intubated and sedated as noted above. 11. GERD: Currently on IV PPI as noted above. 12. DVT prophylaxis: SCDs, heparin drip unsuccessful, not anticoagulated. 13. CODE STATUS: DNR CCA, no intubation status, transition to per family request. Inpatient E&M: [id number] [facility] Hosp L3
[2020-05-21] MEDS: Chlorhexidine 15 ML PO ×2 (08:45→20:08)
[2020-05-21 09:36] LABS: Pathologist Review Reviewed
[2020-05-21] MEDS: dexAMETHasone 4 MG Tablet 6 MG GT (10:20)
[2020-05-21] MEDS: QUEtiapine 25 MG Tablet 50 MG GT ×2 (10:20→20:57)
[2020-05-21] MEDS: Cyanocobalamin 500 MCG Tablet 1000 MCG GT (10:20)
[2020-05-21] MEDS: Vital High Protein 1,000 ML 65 ML GT (12:25)
--- NOTE | 2020-05-21 13:52 | PCM.PN.ID ---
Patient Problems: Active and Suspected Problems Hyperglycemia due to diabetes mellitus (Acute) COVID-19 (Acute) Hypoxemia (Acute) Pulmonary embolism (Acute) Sepsis (Acute) Shortness of breath (Acute) Intraperitoneal bleeding (Suspected) Subjective: On vent, no fever, foul smelling sputum reported - Physical Exam Vitals/I&O's: Vital Signs Temp Pulse Resp BP Pulse Ox 99.5 F H 71 16 99/51 L 93 05/21/20 12:00 05/21/20 13:15 05/21/20 13:15 05/21/20 13:00 05/21/20 13:15 Oxygen Flow Rate (L/min) 60 Oxygen Delivery Method Mechanical Ventilator Weight: 129.4 kg Body Mass Index (BMI) 42.2 Finger Stick Blood Glucose 161 Intake and Output for Last 24 Hours 05/19/20 05/20/20 05/21/20 23:59 23:59 23:59 Intake Total 3599.83 / 3614.26 2789.60 / 2798.80 1298.79 / 1298.79 Output Total 1885 / 1885 2300 / 2300 990 / 990 Balance 1714.83 / 1729.26 489.60 / 498.80 308.79 / 308.79 General: Non-Cooperative Lungs: Diminished Cardiovascular: Regular rate, Regular Rhythm Abdomen: Soft, Non Tender, Non-Distended Skin: No rashes Laboratory Results 05/20/20 17:10: POC Glucose 170 H 05/20/20 23:10: POC Glucose 159 H 05/21/20 04:10: WBC 4.0 L, RBC 3.51 L, Hgb 10.7 L, Hct 33.6 L, MCV 95.7 H, MCH 30.5, MCHC 31.8 L, RDW Std Deviation 50.4 H, RDW Coeff of Taras 14.6, Plt Count 40 L*, MPV 11.8, Immature Gran % (Auto) 1.000 H, Neut % (Auto) 70.3 H, Lymph % (Auto) 17.2 L, [place] % (Auto) 9.4, Eos % (Auto) 1.8, Baso % (Auto) 0.3, Absolute Neuts (auto) 2.8, Absolute Lymphs (auto) 0.68 L, Nucleated RBC % 0, Diff Path Review Reviewed, Platelet Estimate MKD 05/21/20 04:10: Sodium 145, Potassium 4.3, Chloride 110 H, Carbon Dioxide 32.0, Anion Gap 3 L, BUN 50 H, Creatinine 0.69 L, Estim Creat Clear Calc 61.14, Est GFR (MDRD) Af Amer 144, Est GFR (MDRD) Non-Af 119, BUN/Creatinine Ratio 72.0 H, Glucose 153 H, Calcium 7.8 L, Total Bilirubin 0.90, AST 72 H, ALT 92 H, Alkaline Phosphatase 169 H, Total Protein 5.5 L, Albumin 1.3 L, Globulin 4.2, Albumin/Globulin Ratio 0.3 L 05/21/20 05:28: POC Glucose 142 H 05/21/20 11:45: MRSA (PCR) Pending Current Medications Acetaminophen (Acetaminophen 650 Mg/20 Ml Udc) 650 mg GT Q6H PRN PRN PRN Reason: Pain Score 1-10/Temp > 100.7 F Last Admin: 05/20/20 08:00 Dose: 650 mg Documented by: Al Hydroxide/Mg Hydroxide (Mag Hydrox/Al Hydrox/Simeth 30 Ml Udc) 30 ml GT Q6H PRN PRN PRN Reason: Gastric Burning Albuterol Sulfate (Albuterol Ih 8.5 Gm (Proair) Inhaler (200 Puffs)) 2.5 puff INHALATION Q2H PRN PRN PRN Reason: Shortness of Breath/Wheezing Last Admin: 05/09/20 18:57 Dose: 2.5 puff Documented by: Atorvastatin Calcium (Atorvastatin Calcium 20 Mg Tablet) 20 mg GT QHS KEERTHI Last Admin: 05/20/20 21:40 Dose: 20 mg Documented by: Calamine/Phenol (Menthol/Lanolin/Calamine/Znox 113 Gm Tube) 1 applic TOPICAL TID KEERTHI; Protocol Last Admin: 05/21/20 05:32 Dose: 1 applicatio Documented by: Chlorhexidine Gluconate (Chlorhexidine 15 Ml) 15 ml PO BID KEERTHI Last Admin: 05/21/20 08:45 Dose: 15 ml Documented by: Chlorhexidine Gluconate (Chlorhexidine Gluc 2% Cloth 1 Each Towelette) 1 each TOPICAL DAILY KEERTHI Last Admin: 05/21/20 03:34 Dose: 1 each Documented by: Cholecalciferol (Cholecalciferol (Vit D3) 1,000 Unit (25mcg)) 1,000 unit GT BID [facility] [place] Last Admin: 05/21/20 10:20 Dose: 1,000 unit Documented by: Cyanocobalamin (Cyanocobalamin 500 Mcg Tablet) 1,000 mcg GT DAILY [facility] [place] Last Admin: 05/21/20 10:20 Dose: 1,000 mcg Documented by: Dextrose (Dextrose 50%-Water 25 Gm/50 Ml Disp.Syrin) 0 gm IV X1 PRN; Protocol PRN Reason: Hypoglycemia Last Admin: 05/11/20 03:54 Dose: 12.5 gm Documented by: Glucagon (Glucagon 1 Mg/Ml Syringe) 1 mg IM .X1 PRN PRN Reason: Hypoglycemia Sodium Chloride () 250 mls @ 15 mls/hr IV .[id number] PRN PRN Reason: Saline Flush Last Infusion: 05/18/20 19:27 Dose: Infused Documented by: Sodium Chloride () 250 mls @ 15 mls/hr IV .[id number] PRN PRN Reason: Additional IVPB Infusion Propofol (Diprivan) 1,000 mg in 100 mls @ 7.764 mls/hr CONT INF .Q12H [facility] [place]; Protocol Last Titration: 05/21/20 13:00 Dose: 15 mcg/kg/min, 11.6 mls/hr Documented by: Fentanyl Citrate 1,000 mcg/ (Sodium Chloride) 100 mls @ 5 mls/hr CONT INF .Q20H [facility] [place]; Protocol Last Titration: 05/21/20 13:00 Dose: 150 mcg/hr, 15 mls/hr Documented by: Enteral Nutritional Formula (Vital High Protein) 1,000 mls @ 65 mls/hr GT .[id number] [facility] [place] Last Admin: 05/21/20 12:25 Dose: 65 mls/hr Documented by: Pantoprazole Sodium 40 mg/ (Sodium Chloride) 110 mls @ 330 mls/hr IV Q12 [facility] [place] Last Infusion: 05/21/20 10:47 Dose: Infused Documented by: Piperacillin Sod/Tazobactam (Sod 3.375 gm/ Sodium Chloride) 50 mls @ 12.5 mls/hr IV Q8 [facility] [place] Last Admin: 05/21/20 10:56 Dose: 12.5 mls/hr Documented by: Insulin Glargine (Insulin Glargine 100 Units/Ml Pen) 90 units SC Q12H [facility] [place] Last Admin: 05/21/20 11:44 Dose: 90 u Documented by: Insulin Human Lispro (Insulin Lispro 100 Unit/Ml Insuln.Pen) 0 unit SC Q6 [facility] [place]; Protocol Last Admin: 05/21/20 11:44 Dose: Not Given Documented by: Magnesium Hydroxide (Magnesium Hydroxide 30 Ml Udc) 30 ml GT DAILY PRN PRN PRN Reason: Constipation Last Admin: 05/15/20 05:54 Dose: 30 ml Documented by: Nitroglycerin (Nitroglycerin (Inpatient Use) 0.4 Mg Tab.Subl) 0.4 mg SUBLINGUAL Q5M PRN PRN Reason: CARDIAC/CHEST PAIN Nystatin (Nystatin Powder 15gm Bottle) 1 applic TOPICAL TID [facility] [place]; Protocol Last Admin: 05/21/20 05:32 Dose: 1 applicatio Documented by: Ondansetron HCl (Ondansetron 4 Mg/2 Ml Vial) 4 mg IV Q8H PRN PRN PRN Reason: NAUSEA/VOMITING Last Admin: 05/11/20 09:14 Dose: 4 mg Documented by: Polyethylene Glycol (Polyethylene Glycol 3350 17 Gm Packet) 17 gm PO DAILY PRN PRN Reason: CONSTIPATION Prochlorperazine Edisylate (Prochlorperazine 10 Mg/2 Ml Vial) 5 mg IV Q4H PRN PRN PRN Reason: Breakthrough nausea/vomiting Quetiapine Fumarate (Quetiapine 25 Mg Tablet) 50 mg GT BID [facility] [place] Last Admin: 05/21/20 10:20 Dose: 50 mg Documented by: Senna/Docusate Sodium (Senna/Docusate Sodium 1 Tablet) 2 tablet GT BID PRN PRN Reason: CONSTIPATION Sodium Chloride (0.9% Saline Lock 10 Ml Syringe) 10 - 40 ml IV UD PRN PRN Reason: SALINE FLUSH Last Admin: 05/21/20 10:20 Dose: 10 ml Documented by: Sodium Chloride (Sodium Chloride 0.65% 1 [place].Btl) 2 spray NASAL TID PRN PRN PRN Reason: NASAL DRYNESS Last Admin: 05/06/20 21:47 Dose: 2 spray Documented by: Medical Necessity - Tobacco Use Smoking Status: Never smoker Route of nutrition/ use of supplements: [] Nutritional Intake: [] IV Site: [] Rao Catheter: [] - Assessment/Plan Antibiotics: [] Assessment/Plan: [] Active and Suspected Problems Hyperglycemia due to diabetes mellitus (Acute) COVID-19 (Acute) Hypoxemia (Acute) Pulmonary embolism (Acute) Sepsis (Acute) Shortness of breath (Acute) Intraperitoneal bleeding (Suspected) covid with hypoxia and PEs - sx started 04/23, (+) covid as an outpt. On dex, anticoagulation, and completed remdesivir. 1 of 2 bcx with CoNS, consistent with contaminant. Sputum with haemophilus and strep, treated with 7 days of ceftriaxone. Now intubated 2/3, sputum cx neg so far. Extended course of dex. Out of iso. Zosyn started. Will follow, d/w Dr. Black
[2020-05-21 14:22] LABS: M R Staph aureus DNA By PCR Negative (Negative); Probe Check PASS; Specimen Processing Control PASS
[2020-05-21 15:16] LABS: Bedside Glucose 113 mg/dL (70-110)
[2020-05-21 18:16] LABS: Bedside Glucose 189 mg/dL (70-110)
[2020-05-21] MEDS: Insulin Lispro 100 UNIT/ML INSULN.PEN SC (18:33)
[2020-05-21] MEDS: Propofol 10MG/Ml 1,000 MG/100 ML Bottle 7.8 MG CONT INF (20:20)
[2020-05-21] MEDS: Atorvastatin Calcium 20 MG Tablet GT (20:58)
[2020-05-22] VITALS (35 sets, daily range): BP systolic 78–168; BP diastolic 40–75; PULSE 67–116; RESP 10–32; TEMP 36.9–38.5; O2SAT 87–97
[2020-05-22] MEDS: Insulin Lispro 100 UNIT/ML INSULN.PEN SC ×2 (00:38→05:47)
[2020-05-22 00:46] LABS: Bedside Glucose 192 mg/dL (70-110)
[2020-05-22] MEDS: Propofol 10MG/Ml 1,000 MG/100 ML Bottle 3.9 MG CONT INF (03:29)
[2020-05-22] MEDS: Vital High Protein 1,000 ML 65 ML GT ×2 (03:36→18:48)
[2020-05-22 04:18] LABS: Absolute Lymphocyte Count 0.77 X10^3/uL (0.83-4.51); Absolute Neutrophil Count 4.6 X10^3/uL (2.0-7.7); Basophil# 0.01 X10^3/uL; Basophil% 0.2 % (0-1); Eosinophil# 0.09 X10^3/uL; Eosinophils% 1.5 % (0-5); Hematocrit 39.4 % (40-54); Hemoglobin 12.4 g/dL (13.0-16.5); Lymphocyte # 0.77 X10^3/ul (4.0); Lymphocyte % 12.5 % (19-41); Mean Corp Hgb Conc 31.5 g/dL (32-36); Mean Corpuscular Hgb 29.7 pg (27.0-32.0); Mean Corpuscular Volume 94.5 fL (80-94); Mean Platelet Vol. 11.7 fl (6.2-12.0); Monocyte# 0.54 X10^3/uL; Monocyte% 8.7 % (0-10); NRBC Flagged by Analyzer 0 % (0-5); Neutrophil # 4.56 X10^3/uL (2.7-7.7); Neutrophil % 73.7 % (47-70); POSITIVE COUNT YES; Platelet Count 53 K/mm3 (150-450); RBC Distribution Width CV 14.6 % (11.6-14.6); RBC Distribution Width SD 50.3 fl (35.1-43.9); Red Blood Count 4.17 M/mm3 (4.6-6.2); White Blood Count 6.2 K/mm3 (4.4-11.0)
[2020-05-22 04:36] LABS: ALB/GLOB Ratio 0.3 RATIO (0.9-2.4); AST(SGOT) 89 U/L (15-37); Alanine Aminotransfer ALT/SGPT 110 U/L (16-61); Albumin, Serum 1.5 g/dL (3.2-5.0); Alkaline Phosphatase 210 U/L (45-117); Anion Gap 5 (5-15); BUN 50 mg/dL (7-18); BUN/Creat Ratio 63.5 RATIO (10-20); Calcium,Total 8.3 mg/dL (8.5-10.1); Chloride 108 mmol/L (98-107); Creatinine, Serum 0.79 mg/dL (0.70-1.30); EST Glomerular Filtration Rate 103 mL/min (>60); Est Glom Filt Rate - Afr Amer 125 mL/min (>60); Estimated Creatinine Clearance 61.14 ml/min; Globulin 5.1 g/dL (2.2-4.2); Glucose 177 mg/dL (74-106); Potassium 4.1 mmol/L (3.5-5.1); Protein, Total 6.6 g/dL (6.4-8.2); Sodium Level 143 mmol/L (136-145)
[2020-05-22] MEDS: Menthol/Lanolin/Calamine/Znox 113 GM Tube 1 APPLIC TOPICAL ×3 (05:08→21:08)
[2020-05-22] MEDS: Nystatin Powder 15gm Bottle 1 APPLIC TOPICAL ×3 (05:08→21:08)
[2020-05-22] MEDS: TITRATION PARAMETER CHANGE 1 EACH IV (05:38)
[2020-05-22 05:56] LABS: Bedside Glucose 152 mg/dL (70-110)
--- NOTE | 2020-05-22 06:06 | PCM.PN.INT ---
Subjective: The patient was seen and examined at the bedside this morning. Events from the last 24 hours have been reviewed. The patient is currently afebrile, hemodynamically stable and maintaining appropriate oxygen saturations on assist control mode of mechanical ventilation with an FiO2 requirement of 55%. Although the patient tolerated a spontaneous awakening trial this morning, he did desaturate into the 80s. Therefore, a spontaneous breathing trial was not performed. He did have 2 bowel movements overnight per nursing report. Platelet count is stable at 53,000. Renal function is stable. The patient is currently documented to be overall net +2.9 L for the hospital admission. Additional family members will be in town tomorrow. In speaking with the patient's , the plan is to consider terminal extubation upon arrival of additional family members. Objective: The patient's most recent lab work, culture data and imaging studies have all been personally reviewed. Sputum culture was positive for possible Haemophilus and group B streptococcus. General: - - Remains intubated, sedated and mechanically ventilated. HEENT: Atraumatic, PERRLA, Normocephalic Oral: No Gingival or Mucosal Lesions/ Ulcerations, - - Stable endotracheal and OG tubes. Neck: Supple, No Nodes, Trachea Midline Lungs: No rhonchi, No wheeze, No rales, Diminished, Tachypneic Cardiovascular: Normal S1, Normal S2, Tachycardic Abdomen: Bowel Sounds Present, Soft, Non Tender, Obese Extremities: No clubbing, No cyanosis, No edema Skin: - - No significant change from previous Musculoskeletal: No Muscle Wasting Lymphatic: No Cervical, Supraclavicular, or Inguinal Adenopathy Neurological: - - Remains sedated on the ventilator. Moves all extremities spontaneously. The patient is still unable to follow any commands. Psych/Mental Status: - - Intermittently agitated and restless. Vital Signs Temp Pulse Resp BP Pulse Ox 99.6 F H 101 H 28 H 168/73 H 91 05/22/20 05:00 05/22/20 05:20 05/22/20 05:20 05/22/20 05:00 05/22/20 05:20 Oxygen Flow Rate (L/min) 60 Oxygen Delivery Method Mechanical Ventilator Weight: 286 lb 9.615 oz Body Mass Index (BMI) 42.2 Finger Stick Blood Glucose 161 Intake and Output for Last 24 Hours 05/20/20 05/21/2021 23:59 23:59 23:59 Intake Total 2789.60 / 2798.80 2182.90 / 2673.10 608.21 / 608.21 Output Total 2300 / 2300 1440 / 1840 400 / 400 Balance 489.60 / 498.80 742.90 / 833.10 208.21 / 208.21 Labs (Last 48 Hours) 05/20/20 05/20/20 05/20/20 07:02 11:03 17:10 WBC RBC Hgb Hct MCV MCH MCHC RDW Std Deviation RDW Coeff of Taras Plt Count MPV Immature Gran % (Auto) Neut % (Auto) Lymph % (Auto) [place] % (Auto) Eos % (Auto) Baso % (Auto) Absolute Neuts (auto) Absolute Lymphs (auto) Nucleated RBC % Diff Path Review Platelet Estimate Specimen Type ART Sample Site L Radial pH 7.51 H Bicarbonate Actual 30.9 H Total CO2 32 Base Excess 8 H O2 Saturation 94 L O2 % 55 ABG pCO2 38.5 ABG pO2 62 L Agapito Test Positive Respiration Rate 12 O2 Delivery Device Adult Vent Vent Mode AC Tidal Volume 450 POC PEEP 5 Sodium Potassium Chloride Carbon Dioxide Anion Gap BUN Creatinine Estim Creat Clear Calc Est GFR (MDRD) Af Amer Est GFR (MDRD) Non-Af BUN/Creatinine Ratio Glucose Calcium Total Bilirubin AST ALT Alkaline Phosphatase Total Protein Albumin Globulin Albumin/Globulin Ratio MRSA (PCR) POC Glucose 101 170 H 05/20/20 05/21/20 05/21/20 23:10 04:10 04:10 WBC 4.0 L RBC 3.51 L Hgb 10.7 L Hct 33.6 L MCV 95.7 H MCH 30.5 MCHC 31.8 L RDW Std Deviation 50.4 H RDW Coeff of Taras 14.6 Plt Count 40 L* MPV 11.8 Immature Gran % (Auto) 1.000 H Neut % (Auto) 70.3 H Lymph % (Auto) 17.2 L [place] % (Auto) 9.4 Eos % (Auto) 1.8 Baso % (Auto) 0.3 Absolute Neuts (auto) 2.8 Absolute Lymphs (auto) 0.68 L Nucleated RBC % 0 Diff Path Review Reviewed Platelet Estimate MKD DEC Specimen Type Sample Site pH Bicarbonate Actual Total CO2 Base Excess O2 Saturation O2 % ABG pCO2 ABG pO2 Agapito Test Respiration Rate O2 Delivery Device Vent Mode Tidal Volume POC PEEP Sodium 145 Potassium 4.3 Chloride 110 H Carbon Dioxide 32.0 Anion Gap 3 L BUN 50 H Creatinine 0.69 L Estim Creat Clear Calc 61.14 Est GFR (MDRD) Af Amer 144 Est GFR (MDRD) Non-Af 119 BUN/Creatinine Ratio 72.0 H Glucose 153 H Calcium 7.8 L Total Bilirubin 0.90 AST 72 H ALT 92 H Alkaline Phosphatase 169 H Total Protein 5.5 L Albumin 1.3 L Globulin 4.2 Albumin/Globulin Ratio 0.3 L MRSA (PCR) POC Glucose 159 H 05/21/20 05/21/20 05/21/20 05:28 11:42 11:45 WBC RBC Hgb Hct MCV MCH MCHC RDW Std Deviation RDW Coeff of Taras Plt Count MPV Immature Gran % (Auto) Neut % (Auto) Lymph % (Auto) [place] % (Auto) Eos % (Auto) Baso % (Auto) Absolute Neuts (auto) Absolute Lymphs (auto) Nucleated RBC % Diff Path Review Platelet Estimate Specimen Type Sample Site pH Bicarbonate Actual Total CO2 Base Excess O2 Saturation O2 % ABG pCO2 ABG pO2 Agapito Test Respiration Rate O2 Delivery Device Vent Mode Tidal Volume POC PEEP Sodium Potassium Chloride Carbon Dioxide Anion Gap BUN Creatinine Estim Creat Clear Calc Est GFR (MDRD) Af Amer Est GFR (MDRD) Non-Af BUN/Creatinine Ratio Glucose Calcium Total Bilirubin AST ALT Alkaline Phosphatase Total Protein Albumin Globulin Albumin/Globulin Ratio MRSA (PCR) Negative POC Glucose 142 H 113 H 05/21/20 05/22/20 05/22/20 18:13 00:37 04:05 WBC 6.2 RBC 4.17 L Hgb 12.4 L Hct 39.4 L MCV 94.5 H MCH 29.7 MCHC 31.5 L RDW Std Deviation 50.3 H RDW Coeff of Taras 14.6 Plt Count 53 L MPV 11.7 Immature Gran % (Auto) 3.400 H Neut % (Auto) 73.7 H Lymph % (Auto) 12.5 L [place] % (Auto) 8.7 Eos % (Auto) 1.5 Baso % (Auto) 0.2 Absolute Neuts (auto) 4.6 Absolute Lymphs (auto) 0.77 L Nucleated RBC % 0 Diff Path Review Platelet Estimate Specimen Type Sample Site pH Bicarbonate Actual Total CO2 Base Excess O2 Saturation O2 % ABG pCO2 ABG pO2 Agapito Test Respiration Rate O2 Delivery Device Vent Mode Tidal Volume POC PEEP Sodium Potassium Chloride Carbon Dioxide Anion Gap BUN Creatinine Estim Creat Clear Calc Est GFR (MDRD) Af Amer Est GFR (MDRD) Non-Af BUN/Creatinine Ratio Glucose Calcium Total Bilirubin AST ALT Alkaline Phosphatase Total Protein Albumin Globulin Albumin/Globulin Ratio MRSA (PCR) POC Glucose 189 H 192 H 05/22/20 05/22/20 04:05 05:46 WBC RBC Hgb Hct MCV MCH MCHC RDW Std Deviation RDW Coeff of Taras Plt Count MPV Immature Gran % (Auto) Neut % (Auto) Lymph % (Auto) [place] % (Auto) Eos % (Auto) Baso % (Auto) Absolute Neuts (auto) Absolute Lymphs (auto) Nucleated RBC % Diff Path Review Platelet Estimate Specimen Type Sample Site pH Bicarbonate Actual Total CO2 Base Excess O2 Saturation O2 % ABG pCO2 ABG pO2 Agapito Test Respiration Rate O2 Delivery Device Vent Mode Tidal Volume POC PEEP Sodium 143 Potassium 4.1 Chloride 108 H Carbon Dioxide 30.0 Anion Gap 5 BUN 50 H Creatinine 0.79 Estim Creat Clear Calc 61.14 Est GFR (MDRD) Af Amer 125 Est GFR (MDRD) Non-Af 103 BUN/Creatinine Ratio 63.5 H Glucose 177 H Calcium 8.3 L Total Bilirubin 1.50 H AST 89 H ALT 110 H Alkaline Phosphatase 210 H Total Protein 6.6 Albumin 1.5 L Globulin 5.1 H Albumin/Globulin Ratio 0.3 L MRSA (PCR) POC Glucose 152 H Clinical Impression(s) from Imaging Studies Chest X-Ray 05/03/20 08:55 IMPRESSION: Minimal increased markings at the left lung base with blunting of left costophrenic angle. There has been no change since prior study. Electronically Signed: Casimiro Marie MD at 9:09 EST , Service support , Chest CTA 05/03/20 09:36 IMPRESSION: Multiple bilateral pulmonary emboli involving branches of the lower lobe pulmonary arteries. Multiple bilateral pulmonary infiltrates as described. Splenomegaly. Electronically Signed: Casimiro Marie MD at 10:41 EST , Service support , Chest X-Ray 05/10/20 13:01 IMPRESSION: Patchy bilateral pulmonary infiltrates in a peripheral distribution worse in the left hemithorax. Findings are in keeping with Covid. Electronically Signed: Casimiro Marie MD at 13:48 EST , Service support , Chest X-Ray 05/12/20 09:35 IMPRESSION: The tip of the endotracheal tube is at 4.5 cm proximal to the adonis. Stable bilateral patchy pulmonary infiltrates in a peripheral distribution. Electronically Signed: Casimiro Marie MD at 10:45 EST , Service support , Chest X-Ray 05/12/20 16:43 IMPRESSION: 1. Interval placement of left-sided PICC line with the tip within the mid SVC. No pneumothorax. 2. No significant interval change of cardiopulmonary status. at 1824 Reported and signed by: Keagan Hensley MD Electronically Signed: Keagan Hensley MD at 18:23 EST Tel , Service support , Chest X-Ray 05/14/20 05:17 IMPRESSION: Support apparatus as above. Diffuse pulmonary infiltrates. Nonspecific however can be seen with infectious inflammatory process. Findings can be seen with an atypical viral infectious process given patient''s history. Recommend follow-up imaging to resolution. No significant change in the appearance of the lungs. Electronically Signed: Dennis Baldwin MD at 6:32 EST Tel , Service support , Medical Necessity - Tobacco Use Smoking Status: Never smoker Assessment/Plan All Active Problems Hyperglycemia due to diabetes mellitus (Acute) COVID-19 (Acute) Hypoxemia (Acute) Pulmonary embolism (Acute) Sepsis (Acute) History of cholecystectomy (Resolved) Shortness of breath (Acute) RECOMMENDATIONS: 1. Continue to wean FiO2 and PEEP to maintain saturations at or above 90%. 2. Continue to hold all forms of systemic anticoagulation over concerns for GI blood loss. 3. Continue PPI therapy twice daily. 4. Continue tube feeds as tolerated. 5. Continue Lantus and sliding scale insulin coverage. 6. Continue empiric antimicrobials. 7. Ongoing goals of care discussions with the patient's . IMPRESSIONS: 1. Acute hypoxemic respiratory failure secondary to COVID-19 pneumonia and bilateral pulmonary emboli The patient was initially admitted to the hospital and diagnosed with COVID-19 pneumonia and bilateral pulmonary emboli. Over the course of his hospitalization, the patient continued to decompensate from a respiratory perspective, requiring increasing amounts of supplemental oxygen. The patient eventually required intubation on May 12. Plan to continue the patient on assist control mode of mechanical ventilation and wean FiO2 and PEEP to maintain saturations at or above 90%. The patient has completed a treatment course of remdesivir and Decadron. The patient was also treated with antibiotics given Haemophilus isolated from sputum culture. Although the patient was initially started on Eliquis, his systemic anticoagulation was discontinued over concerns for possible lower GI bleeding. 2. Melena/occult blood positive stools Plan to continue current supportive measures with twice daily PPI therapy. The patient is unable to tolerate any form of systemic anticoagulation without developing increased GI blood loss. Continue to monitor H&H daily. No current indication for transfusion of blood products. 3. Diabetes mellitus/hypertension/hyperlipidemia/BPH/obesity/paroxysmal atrial fibrillation Complicates care, management, recovery and prognosis. Continue home medications as indicated. Physical therapy to work with the patient as tolerated. Continue Lantus and sliding scale insulin coverage. TIME: 34 minutes of critical care time, independent of procedures, was spent addressing the patient's acute hypoxemic respiratory failure, COVID-19 pneumonia, pulmonary emboli, possible lower GI bleeding, review of all data and collaboration with the care team. ([id number]) [id number] Critical care first hour
--- NOTE | 2020-05-22 06:46 | PCM.PN.HOSP ---
Patient Problems: Active and Suspected Problems Hyperglycemia due to diabetes mellitus (Acute) COVID-19 (Acute) Hypoxemia (Acute) Pulmonary embolism (Acute) Sepsis (Acute) Shortness of breath (Acute) Intraperitoneal bleeding (Suspected) Subjective: Patient overnight with ongoing low-grade temperatures through the evening and this morning temperature up to 101.3 with no specific acute events however did require increased FiO2 requirements up to 55%. Patient again had significant hypoxia into the 80s with SBT trial. Family plan to be present 05/23/2020 at the 14-day deon and per previous discussions expect likely extubation attempt, likely terminal. Patient with only documented last bowel movement 05/21/2020 at 1800. Patient without any evidence of chills, nausea, emesis, abdominal pain, chest pain or dyspnea. Objective: Physical Examination: General: Sedated, intubated, no obvious distress, laying in the ICU bed, NAD, more lethargic, not awakening to stimuli today. Skin: normal color, turgor, no icterus, cyanosis. HEENT: AT/NC, EOM unable to be assessed given sedated status, PERRLA, mildly dry MM, ET tube and OG tube in place. Lungs: Diminished breath sounds, more so than day prior, symmetric rise, intubated, sedated, no obvious rales or wheezing, less coarse than day prior but decreased movement. Heart: Mildly tachycardic with regular rhythm; no gallop, rub audible. Abdomen: soft, overly obese, NTTP, ND, normalize bowel sounds currently. Extremities: no cyanosis or clubbing, mild bilateral ankle and hand nonpitting edema. Neurological: Patient sedated, intubated, not awakening to stimuli today, not able to answer orientation questions, cognitive function not baseline intact, pupils equally reactive to light and accomodation; cranial nerves unable to be assessed given sedated status, not moving extremities to withdrawal, strength accordingly severely globally decreased. Psychiatric: affect appears more sedate, no acute evidence of depressive or anxiety feelings. Vitals/I&O's: Vital Signs Temp Pulse Resp BP Pulse Ox 100.2 F H 107 H 28 H 122/56 H 91 05/22/20 06:00 05/22/20 06:00 05/22/20 06:00 05/22/20 06:00 05/22/20 06:00 Oxygen Flow Rate (L/min) 60 Oxygen Delivery Method Mechanical Ventilator Weight: 286 lb 9.615 oz Body Mass Index (BMI) 42.2 Finger Stick Blood Glucose 161 Intake and Output for Last 24 Hours 05/20/20 05/21/20 05/22/20 23:59 23:59 23:59 Intake Total 2789.60 / 2798.80 2182.90 / 2673.10 972.61 / 972.61 Output Total 2300 / 2300 1440 / 1840 950 / 950 Balance 489.60 / 498.80 742.90 / 833.10 22.61 / 22.61 Laboratory Results 05/21/20 04:10: Diff Path Review Reviewed 05/21/20 11:42: POC Glucose 113 H 05/21/20 11:45: MRSA (PCR) Negative 05/21/20 18:13: POC Glucose 189 H 05/22/20 00:37: POC Glucose 192 H 05/22/20 04:05: WBC 6.2, RBC 4.17 L, Hgb 12.4 L, Hct 39.4 L, MCV 94.5 H, MCH 29.7, MCHC 31.5 L, RDW Std Deviation 50.3 H, RDW Coeff of Taras 14.6, Plt Count 53 L, MPV 11.7, Immature Gran % (Auto) 3.400 H, Neut % (Auto) 73.7 H, Lymph % (Auto) 12.5 L, [place] % (Auto) 8.7, Eos % (Auto) 1.5, Baso % (Auto) 0.2, Absolute Neuts (auto) 4.6, Absolute Lymphs (auto) 0.77 L, Nucleated RBC % 0 05/22/20 04:05: Sodium 143, Potassium 4.1, Chloride 108 H, Carbon Dioxide 30.0, Anion Gap 5, BUN 50 H, Creatinine 0.79, Estim Creat Clear Calc 61.14, Est GFR (MDRD) Af Amer 125, Est GFR (MDRD) Non-Af 103, BUN/Creatinine Ratio 63.5 H, Glucose 177 H, Calcium 8.3 L, Total Bilirubin 1.50 H, AST 89 H, ALT 110 H, Alkaline Phosphatase 210 H, Total Protein 6.6, Albumin 1.5 L, Globulin 5.1 H, Albumin/Globulin Ratio 0.3 L 05/22/20 05:46: POC Glucose 152 H Current Medications Acetaminophen (Acetaminophen 650 Mg/20 Ml Udc) 650 mg GT Q6H PRN PRN PRN Reason: Pain Score 1-10/Temp > 100.7 F Last Admin: 05/20/20 08:00 Dose: 650 mg Documented by: Al Hydroxide/Mg Hydroxide (Mag Hydrox/Al Hydrox/Simeth 30 Ml Udc) 30 ml GT Q6H PRN PRN PRN Reason: Gastric Burning Albuterol Sulfate (Albuterol Ih 8.5 Gm (Proair) Inhaler (200 Puffs)) 2.5 puff INHALATION Q2H PRN PRN PRN Reason: Shortness of Breath/Wheezing Last Admin: 05/09/20 18:57 Dose: 2.5 puff Documented by: Atorvastatin Calcium (Atorvastatin Calcium 20 Mg Tablet) 20 mg GT QHS [facility] Last Admin: 05/21/20 20:58 Dose: 20 mg Documented by: Calamine/Phenol (Menthol/Lanolin/Calamine/Znox 113 Gm Tube) 1 applic TOPICAL TID KEERTHI; Protocol Last Admin: 05/22/20 05:08 Dose: 1 applicatio Documented by: Chlorhexidine Gluconate (Chlorhexidine 15 Ml) 15 ml PO BID [facility] Last Admin: 05/21/20 20:08 Dose: 15 ml Documented by: Chlorhexidine Gluconate (Chlorhexidine Gluc 2% Cloth 1 Each Towelette) 1 each TOPICAL DAILY [facility] Last Admin: 05/21/20 03:34 Dose: 1 each Documented by: Cholecalciferol (Cholecalciferol (Vit D3) 1,000 Unit (25mcg)) 1,000 unit GT BID [facility] Last Admin: 05/21/20 20:57 Dose: 1,000 unit Documented by: Cyanocobalamin (Cyanocobalamin 500 Mcg Tablet) 1,000 mcg GT DAILY [facility] Last Admin: 05/21/20 10:20 Dose: 1,000 mcg Documented by: Dextrose (Dextrose 50%-Water 25 Gm/50 Ml Disp.Syrin) 0 gm IV X1 PRN; Protocol PRN Reason: Hypoglycemia Last Admin: 05/11/20 03:54 Dose: 12.5 gm Documented by: Glucagon (Glucagon 1 Mg/Ml Syringe) 1 mg IM .X1 PRN PRN Reason: Hypoglycemia Sodium Chloride () 250 mls @ 15 mls/hr IV .[id number] PRN PRN Reason: Saline Flush Last Infusion: 05/18/20 19:27 Dose: Infused Documented by: Sodium Chloride () 250 mls @ 15 mls/hr IV .[id number] PRN PRN Reason: Additional IVPB Infusion Propofol (Diprivan) 1,000 mg in 100 mls @ 7.8 mls/hr CONT INF .Q12H KEERTHI; Protocol Last Titration: 05/22/20 06:30 Dose: 10 mcg/kg/min, 7.8 mls/hr Documented by: Fentanyl Citrate 1,000 mcg/ (Sodium Chloride) 100 mls @ 5 mls/hr CONT INF .Q20H KEERTHI; Protocol Last Titration: 05/22/20 06:00 Dose: 50 mcg/hr, 5 mls/hr Documented by: Enteral Nutritional Formula (Vital High Protein) 1,000 mls @ 65 mls/hr GT .[id number] KEERTHI Last Admin: 05/22/20 03:36 Dose: 65 mls/hr Documented by: Pantoprazole Sodium 40 mg/ (Sodium Chloride) 110 mls @ 330 mls/hr IV Q12 KEERTHI Last Infusion: 05/21/20 21:27 Dose: Infused Documented by: Piperacillin Sod/Tazobactam (Sod 3.375 gm/ Sodium Chloride) 50 mls @ 12.5 mls/hr IV Q8 KEERTHI Last Admin: 05/22/20 05:08 Dose: 12.5 mls/hr Documented by: Insulin Glargine (Insulin Glargine 100 Units/Ml Pen) 90 units SC Q12H KEERTHI Last Admin: 05/22/20 00:39 Dose: 90 u Documented by: Insulin Human Lispro (Insulin Lispro 100 Unit/Ml Insuln.Pen) 0 unit SC Q6 KEERTHI; Protocol Last Admin: 05/22/20 05:47 Dose: 3 u Documented by: Magnesium Hydroxide (Magnesium Hydroxide 30 Ml Udc) 30 ml GT DAILY PRN PRN PRN Reason: Constipation Last Admin: 05/15/20 05:54 Dose: 30 ml Documented by: Nitroglycerin (Nitroglycerin (Inpatient Use) 0.4 Mg Tab.Subl) 0.4 mg SUBLINGUAL Q5M PRN PRN Reason: CARDIAC/CHEST PAIN Nystatin (Nystatin Powder 15gm Bottle) 1 applic TOPICAL TID [facility]; Protocol Last Admin: 05/22/20 05:08 Dose: 1 applicatio Documented by: Ondansetron HCl (Ondansetron 4 Mg/2 Ml Vial) 4 mg IV Q8H PRN PRN PRN Reason: NAUSEA/VOMITING Last Admin: 05/11/20 09:14 Dose: 4 mg Documented by: Polyethylene Glycol (Polyethylene Glycol 3350 17 Gm Packet) 17 gm PO DAILY PRN PRN Reason: CONSTIPATION Prochlorperazine Edisylate (Prochlorperazine 10 Mg/2 Ml Vial) 5 mg IV Q4H PRN PRN PRN Reason: Breakthrough nausea/vomiting Quetiapine Fumarate (Quetiapine 25 Mg Tablet) 50 mg GT BID [facility] Last Admin: 05/21/20 20:57 Dose: 50 mg Documented by: Senna/Docusate Sodium (Senna/Docusate Sodium 1 Tablet) 2 tablet GT BID PRN PRN Reason: CONSTIPATION Sodium Chloride (0.9% Saline Lock 10 Ml Syringe) 10 - 40 ml IV UD PRN PRN Reason: SALINE FLUSH Last Admin: 05/21/20 10:20 Dose: 10 ml Documented by: Sodium Chloride (Sodium Chloride 0.65% 1 [place].Btl) 2 spray NASAL TID PRN PRN PRN Reason: NASAL DRYNESS Last Admin: 05/06/20 21:47 Dose: 2 spray Documented by: STROKE Vital Signs/Narrative: Vital Signs Temp Pulse Resp BP Pulse Ox 05/22/20 06:00 100.2 F H 107 H 28 H 122/56 H 91 05/22/20 05:20 101 H 28 H 91 05/22/20 05:00 99.6 F H 116 H 30 H 168/73 H 87 05/22/20 04:00 99.2 F H 106 H 27 H 150/70 H 88 05/22/20 03:15 70 05/22/20 03:00 99.3 F H 87 20 H 158/75 H 91 Medical Necessity - Tobacco Use Smoking Status: Never smoker Assessment/Plan All Active Problems Hyperglycemia due to diabetes mellitus (Acute) COVID-19 (Acute) Hypoxemia (Acute) Pulmonary embolism (Acute) Sepsis (Acute) History of cholecystectomy (Resolved) Shortness of breath (Acute) The patient is a 69 y/o M w/ PMHx: Chronic Thrombocytopenia, Morbid Obesity, HTN, HLD, Diabetes mellitus type II, PAF, MARIELLE, BPH who presents to the [facility] ED on 05/03/20 with history of Covid diagnosis on 04/27/2020 per PCP office with worsening symptoms despite discharged home at that time on Decadron with progressively worsening dyspnea, headache, fatigue, fever, chills. 1. Acute hypoxic respiratory failure secondary to acute bilateral pneumonia and bilateral pulmonary emboli secondary to acute COVID-19 viral syndrome: Following admission patient with continued decompensation requiring eventual intubation 05/12/2020, evaluated by crusher tender and infectious disease with completion of remdesivir regimen, continued on Decadron with plan to continue 10-day course, treated also initially with antibiotics for sputum culture with noted Haemophilus with 7-day course of Rocephin, transitioned to Eliquis from Pradaxa secondary to bilateral PE however significant concerns as noted with possible GI bleeding although hemoglobin had remained stable therefore discontinued, 05/17/2020 transitioned to heparin drip which failed with onset bloody output via OG however Hgb remained stable despite this onset. 05/18/20 IV scheduled lasix intention per ICU; however, patient with resulting hypotension thus diuresis held with occasional pulse dose Lasix times with recurrent hypotension. 05/19/2020 attempted transition off propofol to Precedex and Seroquel; however, significant bradycardia and agitation with resumption of propofol and fentanyl. 05/21/20 transition to DNR CCA, no intubation status. Patient 05/21/2020 with ongoing low-grade temperature, coarse breath sounds with reported foul-smelling sputum patient initiated on IV Zosyn therapy, MRSA screen performed and negative. Patient with elevated temperatures, hypotensive, failed SBT with hypoxia. Awaiting family 05/23/2020 and do suspect at that time likely terminal extubation. 2. Acute GI bleed with melanotic stools noted to be occult blood positive: Continue patient on twice daily high-dose PPI, had been on Pradaxa prior to presentation with transition to Eliquis given noted bilateral PE however onset of concerning GI bleed therefore this had been discontinued, given significant presentation, high risk planned reinitiation anticoagulation with heparin drip 05/17/2020 with close monitoring with noted blood output via OG thus discontinued. Admission 05/03/2020 hemoglobin 13.6, 05/17/2020 11.9-->05/22/20 CBC w/ Hgb 12.4, Plts 53, has significantly vacillated. Stools per staff have transition from maroon-colored to brown. 3. Acute on Chronic thrombocytopenia: Admission platelets 56, improved following anticoagulation hold however despite this hold trended down again with noted 05/17/2020 platelets 56, heparin drip trial as noted 05/17/20 failed, 05/22/20 CBC w/ plts 53, continue to closely monitor. Prior baseline platelets appeared primarily 60-80. 4. Elevated LFTs: Admission 05/03/2020 AST/ALT 26/28, alk phos 68 with eventual rise starting on 05/13/2020 with total bilirubin 1.40, AST/ALT 53/78, alk phos 119-->05/22/2020 total bilirubin 1.50, AST/ALT 89/110, alk phos 210, rising from previous levels, had been initially improving, likely secondary to #1. 5. Diabetes mellitus type II with hyperglycemia secondary to #1 with steroid usage as noted: Hold oral home regimen, continue altered insulin regimen currently insulin glargine 90 units subcu twice daily which was decreased by Dr. Black 05/21/2020, continue on tube feeds, continue accu checks w/ ISS per tube feed protocols. BS over the last 24 hours ranged 93-192. 6. PAF: Previously on Pradaxa, discontinued and transition to Eliquis upon presentation as noted with #1 however held given #2, currently attempting heparin drip with continued close monitoring as noted, not on rate or rhythm agent currently. 7. Hypertension: BPs remain low normal step following IV Lasix and ministration with hypotension transiently, outpatient normally on atenolol, losartan, continue to hold. 8. Hyperlipidemia: We will continue patient statin therapy. 9. Morbid Obesity: Weight loss and lifestyle changes will be encouraged once patient becomes cognizant/extubated if appropriate, nutrition consulted and following as noted for tube feeds. 10. MARIELLE: Currently intubated and sedated as noted above. 11. GERD: Currently on IV PPI as noted above. 12. DVT prophylaxis: SCDs, heparin drip unsuccessful, not anticoagulated. 13. CODE STATUS: DNR CCA, no intubation status, do suspect likely family visitation 05/23/2020 with terminal extubation. Inpatient E&M: 78090 Subs Hosp L3
[2020-05-22] MEDS: CHLORHEXIDINE GLUC 2% CLOTH 1 EACH TOWELETTE TOPICAL (08:37)
[2020-05-22] MEDS: Acetaminophen 650 MG/20 ML UDC GT (08:37)
[2020-05-22] MEDS: Chlorhexidine 15 ML PO ×2 (08:37→19:49)
[2020-05-22] MEDS: QUEtiapine 25 MG Tablet 50 MG GT ×2 (08:39→21:08)
[2020-05-22] MEDS: Cyanocobalamin 500 MCG Tablet 1000 MCG GT (08:39)
[2020-05-22] MEDS: 0.9% Saline Lock 10 ML Syringe IV (08:46)
[2020-05-22 12:05] LABS: Bedside Glucose 73 mg/dL (70-110)
[2020-05-22] MEDS: Propofol 10MG/Ml 1,000 MG/100 ML Bottle 15.6 MG CONT INF ×2 (14:35→19:30)
[2020-05-22 18:45] LABS: Bedside Glucose 72 mg/dL (70-110)
[2020-05-22] MEDS: Atorvastatin Calcium 20 MG Tablet GT (21:07)
[2020-05-22 23:31] LABS: Bedside Glucose 80 mg/dL (70-110)
[2020-05-23] VITALS (40 sets, daily range): BP systolic 74–152; BP diastolic 40–69; PULSE 71–106; RESP 12–31; TEMP 37.2–38.4; O2SAT 90–98
[2020-05-23] MEDS: Propofol 10MG/Ml 1,000 MG/100 ML Bottle 15.6 MG CONT INF ×2 (01:19→22:29)
[2020-05-23 03:44] LABS: Absolute Lymphocyte Count 0.97 X10^3/uL (0.83-4.51); Absolute Neutrophil Count 3.7 X10^3/uL (2.0-7.7); Basophil# 0.02 X10^3/uL; Basophil% 0.4 % (0-1); Eosinophil# 0.28 X10^3/uL; Eosinophils% 5.2 % (0-5); Hematocrit 36.6 % (40-54); Hemoglobin 11.4 g/dL (13.0-16.5); Lymphocyte # 0.97 X10^3/ul (4.0); Lymphocyte % 18.2 % (19-41); Mean Corp Hgb Conc 31.1 g/dL (32-36); Mean Corpuscular Hgb 30.2 pg (27.0-32.0); Mean Corpuscular Volume 96.8 fL (80-94); Mean Platelet Vol. 12.5 fl (6.2-12.0); Monocyte# 0.32 X10^3/uL; NRBC Flagged by Analyzer 0 % (0-5); Neutrophil # 3.68 X10^3/uL (2.7-7.7); Neutrophil % 68.9 % (47-70); POSITIVE COUNT YES; RBC Distribution Width CV 15.1 % (11.6-14.6); RBC Distribution Width SD 51.7 fl (35.1-43.9); Red Blood Count 3.78 M/mm3 (4.6-6.2); White Blood Count 5.3 K/mm3 (4.4-11.0)
[2020-05-23 03:47] LABS: Differential Indicated SCAN CRITERIA MET
[2020-05-23 03:49] LABS: Platelet Count 45 K/mm3 (150-450)
[2020-05-23 04:06] LABS: ALB/GLOB Ratio 0.3 RATIO (0.9-2.4); AST(SGOT) 120 U/L (15-37); Alanine Aminotransfer ALT/SGPT 132 U/L (16-61); Albumin, Serum 1.4 g/dL (3.2-5.0); Alkaline Phosphatase 213 U/L (45-117); Anion Gap 4 (5-15); BUN 40 mg/dL (7-18); BUN/Creat Ratio 63.3 RATIO (10-20); Chloride 110 mmol/L (98-107); Creatinine, Serum 0.63 mg/dL (0.70-1.30); EST Glomerular Filtration Rate 133 mL/min (>60); Est Glom Filt Rate - Afr Amer 161 mL/min (>60); Estimated Creatinine Clearance 61.14 ml/min; Globulin 4.3 g/dL (2.2-4.2); Glucose 97 mg/dL (74-106); Potassium 3.7 mmol/L (3.5-5.1); Protein, Total 5.7 g/dL (6.4-8.2); Sodium Level 144 mmol/L (136-145)
[2020-05-23 05:13] LABS: Differential Comment SCANNED
[2020-05-23 05:14] LABS: Anisocytosis RARE; Macrocytosis RARE; Platelet Estimate MKD DEC (ADEQ); Polychromasia RARE
--- NOTE | 2020-05-23 05:23 | PCM.PN.INT ---
Subjective: The patient was seen and examined at the bedside this morning. Events from the last 24 hours have been reviewed. The patient currently has a low-grade fever but remains hemodynamically stable on assist control mode mechanical ventilation with an FiO2 requirement of 50%. Platelet count again remains low at 45,000. Nursing staff continues to report secretions from the patient's endotracheal tube. The patient again failed his spontaneous awakening trial this morning after he developed tachycardia, tachypnea and worsening hypoxemia. The patient's daughter is supposed to be in town from out of state this evening after 5 PM, after which time the family is planning to make some final decisions regarding goals of care. The patient is currently documented to be overall net +4.3 L for the hospital admission. However, attempts in the past to use diuretics has led to hypotension. Objective: The patient's most recent lab work, culture data and imaging studies have all been personally reviewed. Sputum culture was positive for possible Haemophilus and group B streptococcus. General: Lethargic, - - Remains intubated, sedated and mechanically ventilated. No ventilator dyssynchrony. HEENT: Atraumatic, Normocephalic Oral: No Gingival or Mucosal Lesions/ Ulcerations, - - Endotracheal and OG tubes remain in place. Neck: Supple, No Nodes, Trachea Midline Lungs: No rhonchi, No wheeze, No rales, Diminished, Tachypneic Cardiovascular: Normal S1, Normal S2, No murmurs, Tachycardic Abdomen: Bowel Sounds Present, Soft, Non Tender, Obese Extremities: No clubbing, No cyanosis, Edema Skin: - - No significant change from previous Musculoskeletal: No Muscle Wasting Lymphatic: No Cervical, Supraclavicular, or Inguinal Adenopathy Neurological: - - No focal deficits. The patient remains quite lethargic and is unable to follow any simple commands. Psych/Mental Status: - - Remains intermittently agitated and restless. Vital Signs Temp Pulse Resp BP Pulse Ox 100.7 F H 97 16 137/67 H 90 05/23/20 05:00 05/23/20 05:00 05/23/20 05:00 05/23/20 05:00 05/23/20 05:00 Oxygen Flow Rate (L/min) 60 Oxygen Delivery Method Mechanical Ventilator Weight: 288 lb 2.307 oz Body Mass Index (BMI) 42.2 Finger Stick Blood Glucose 161 Intake and Output for Last 24 Hours 05/21/20 05/22/20 05/23/20 23:59 23:59 23:59 Intake Total 2182.90 / 2673.10 3149.09 / 3149.09 240.80 / 240.80 Output Total 1440 / 1840 2014 Balance 742.90 / 833.10 1134.09 / 1134.09 240.80 / 240.80 Labs (Last 48 Hours) 05/21/20 05/21/20 05/21/20 04:10 05:28 11:42 WBC RBC Hgb Hct MCV MCH MCHC RDW Std Deviation RDW Coeff of Taras Plt Count MPV Immature Gran % (Auto) Neut % (Auto) Lymph % (Auto) [place] % (Auto) Eos % (Auto) Baso % (Auto) Absolute Neuts (auto) Absolute Lymphs (auto) Nucleated RBC % Differential Comment Diff Path Review Reviewed Platelet Estimate Polychromasia Anisocytosis Macrocytosis Sodium Potassium Chloride Carbon Dioxide Anion Gap BUN Creatinine Estim Creat Clear Calc Est GFR (MDRD) Af Amer Est GFR (MDRD) Non-Af BUN/Creatinine Ratio Glucose Calcium Total Bilirubin AST ALT Alkaline Phosphatase Total Protein Albumin Globulin Albumin/Globulin Ratio MRSA (PCR) POC Glucose 142 H 113 H 05/21/20 05/21/20 05/22/20 11:45 18:13 00:37 WBC RBC Hgb Hct MCV MCH MCHC RDW Std Deviation RDW Coeff of Taras Plt Count MPV Immature Gran % (Auto) Neut % (Auto) Lymph % (Auto) [place] % (Auto) Eos % (Auto) Baso % (Auto) Absolute Neuts (auto) Absolute Lymphs (auto) Nucleated RBC % Differential Comment Diff Path Review Platelet Estimate Polychromasia Anisocytosis Macrocytosis Sodium Potassium Chloride Carbon Dioxide Anion Gap BUN Creatinine Estim Creat Clear Calc Est GFR (MDRD) Af Amer Est GFR (MDRD) Non-Af BUN/Creatinine Ratio Glucose Calcium Total Bilirubin AST ALT Alkaline Phosphatase Total Protein Albumin Globulin Albumin/Globulin Ratio MRSA (PCR) Negative POC Glucose 189 H 192 H 05/22/20 05/22/20 05/22/20 04:05 04:05 05:46 WBC 6.2 RBC 4.17 L Hgb 12.4 L Hct 39.4 L MCV 94.5 H MCH 29.7 MCHC 31.5 L RDW Std Deviation 50.3 H RDW Coeff of Taras 14.6 Plt Count 53 L MPV 11.7 Immature Gran % (Auto) 3.400 H Neut % (Auto) 73.7 H Lymph % (Auto) 12.5 L [place] % (Auto) 8.7 Eos % (Auto) 1.5 Baso % (Auto) 0.2 Absolute Neuts (auto) 4.6 Absolute Lymphs (auto) 0.77 L Nucleated RBC % 0 Differential Comment Diff Path Review Platelet Estimate Polychromasia Anisocytosis Macrocytosis Sodium 143 Potassium 4.1 Chloride 108 H Carbon Dioxide 30.0 Anion Gap 5 BUN 50 H Creatinine 0.79 Estim Creat Clear Calc 61.14 Est GFR (MDRD) Af Amer 125 Est GFR (MDRD) Non-Af 103 BUN/Creatinine Ratio 63.5 H Glucose 177 H Calcium 8.3 L Total Bilirubin 1.50 H AST 89 H ALT 110 H Alkaline Phosphatase 210 H Total Protein 6.6 Albumin 1.5 L Globulin 5.1 H Albumin/Globulin Ratio 0.3 L MRSA (PCR) POC Glucose 152 H 05/22/20 05/22/20 05/22/20 12:00 18:41 23:25 WBC RBC Hgb Hct MCV MCH MCHC RDW Std Deviation RDW Coeff of Taras Plt Count MPV Immature Gran % (Auto) Neut % (Auto) Lymph % (Auto) [place] % (Auto) Eos % (Auto) Baso % (Auto) Absolute Neuts (auto) Absolute Lymphs (auto) Nucleated RBC % Differential Comment Diff Path Review Platelet Estimate Polychromasia Anisocytosis Macrocytosis Sodium Potassium Chloride Carbon Dioxide Anion Gap BUN Creatinine Estim Creat Clear Calc Est GFR (MDRD) Af Amer Est GFR (MDRD) Non-Af BUN/Creatinine Ratio Glucose Calcium Total Bilirubin AST ALT Alkaline Phosphatase Total Protein Albumin Globulin Albumin/Globulin Ratio MRSA (PCR) POC Glucose 73 72 80 05/23/20 05/23/20 03:30 03:30 WBC 5.3 RBC 3.78 L Hgb 11.4 L Hct 36.6 L MCV 96.8 H MCH 30.2 MCHC 31.1 L RDW Std Deviation 51.7 H RDW Coeff of Taras 15.1 H Plt Count 45 L* MPV 12.5 H Immature Gran % (Auto) 1.300 H Neut % (Auto) 68.9 Lymph % (Auto) 18.2 L [place] % (Auto) 6.0 Eos % (Auto) 5.2 H Baso % (Auto) 0.4 Absolute Neuts (auto) 3.7 Absolute Lymphs (auto) 0.97 Nucleated RBC % 0 Differential Comment SCANNED Diff Path Review May foll Platelet Estimate MKD DEC Polychromasia RARE Anisocytosis RARE Macrocytosis RARE Sodium 144 Potassium 3.7 Chloride 110 H Carbon Dioxide 30.0 Anion Gap 4 L BUN 40 H Creatinine 0.63 L Estim Creat Clear Calc 61.14 Est GFR (MDRD) Af Amer 161 Est GFR (MDRD) Non-Af 133 BUN/Creatinine Ratio 63.3 H Glucose 97 Calcium 8.0 L Total Bilirubin 1.60 H AST 120 H ALT 132 H Alkaline Phosphatase 213 H Total Protein 5.7 L Albumin 1.4 L Globulin 4.3 H Albumin/Globulin Ratio 0.3 L MRSA (PCR) POC Glucose Clinical Impression(s) from Imaging Studies Chest X-Ray 05/03/20 08:55 IMPRESSION: Minimal increased markings at the left lung base with blunting of left costophrenic angle. There has been no change since prior study. Electronically Signed: Casimiro Marie MD at 9:09 EST , Service support , Chest CTA 05/03/20 09:36 IMPRESSION: Multiple bilateral pulmonary emboli involving branches of the lower lobe pulmonary arteries. Multiple bilateral pulmonary infiltrates as described. Splenomegaly. Electronically Signed: Casimiro Marie MD at 10:41 EST , Service support , Chest X-Ray 05/10/20 13:01 IMPRESSION: Patchy bilateral pulmonary infiltrates in a peripheral distribution worse in the left hemithorax. Findings are in keeping with Covid. Electronically Signed: Casimiro Marie MD at 13:48 EST , Service support , Chest X-Ray 05/12/20 09:35 IMPRESSION: The tip of the endotracheal tube is at 4.5 cm proximal to the adonis. Stable bilateral patchy pulmonary infiltrates in a peripheral distribution. Electronically Signed: Casimiro Marie MD at 10:45 EST , Service support , Chest X-Ray 05/12/20 16:43 IMPRESSION: 1. Interval placement of left-sided PICC line with the tip within the mid SVC. No pneumothorax. 2. No significant interval change of cardiopulmonary status. at 1824 Reported and signed by: Keagan Hensley MD Electronically Signed: Keagan Hensley MD at 18:23 EST Tel , Service support , Chest X-Ray 05/14/20 05:17 IMPRESSION: Support apparatus as above. Diffuse pulmonary infiltrates. Nonspecific however can be seen with infectious inflammatory process. Findings can be seen with an atypical viral infectious process given patient''s history. Recommend follow-up imaging to resolution. No significant change in the appearance of the lungs. Electronically Signed: Dennis Baldwin MD at 6:32 EST Tel , Service support , Medical Necessity - Tobacco Use Smoking Status: Never smoker Assessment/Plan All Active Problems Hyperglycemia due to diabetes mellitus (Acute) COVID-19 (Acute) Hypoxemia (Acute) Pulmonary embolism (Acute) Sepsis (Acute) History of cholecystectomy (Resolved) Shortness of breath (Acute) RECOMMENDATIONS: 1. Continue to wean FiO2 and PEEP to maintain saturations at or above 90%. 2. Continue to hold all forms of systemic anticoagulation over concerns for GI blood loss. 3. Continue PPI therapy twice daily. 4. Continue tube feeds as tolerated. 5. Continue sliding scale insulin coverage. 6. Continue empiric antimicrobials. 7. Ongoing goals of care discussions with the patient's . IMPRESSIONS: 1. Acute hypoxemic respiratory failure secondary to COVID-19 pneumonia and bilateral pulmonary emboli The patient was initially admitted to the hospital and diagnosed with COVID-19 pneumonia and bilateral pulmonary emboli. Over the course of his hospitalization, the patient continued to decompensate from a respiratory perspective, requiring increasing amounts of supplemental oxygen. The patient eventually required intubation on May 12. Plan to continue the patient on assist control mode of mechanical ventilation and wean FiO2 and PEEP to maintain saturations at or above 90%. The patient has completed a treatment course of remdesivir and Decadron. The patient was also treated with antibiotics given Haemophilus isolated from sputum culture. Although the patient was initially started on Eliquis, his systemic anticoagulation was discontinued over concerns for possible lower GI bleeding. 2. Melena/occult blood positive stools Plan to continue current supportive measures with twice daily PPI therapy. The patient is unable to tolerate any form of systemic anticoagulation without developing increased GI blood loss. Continue to monitor H&H daily. No current indication for transfusion of blood products. 3. Diabetes mellitus/hypertension/hyperlipidemia/BPH/obesity/paroxysmal atrial fibrillation Complicates care, management, recovery and prognosis. Continue home medications as indicated. Physical therapy to work with the patient as tolerated. Continue sliding scale insulin coverage. TIME: 33 minutes of critical care time, independent of procedures, was spent addressing the patient's acute hypoxemic respiratory failure, COVID-19 pneumonia, pulmonary emboli, possible lower GI bleeding, review of all data and collaboration with the care team. ([id number]) [id number]: [id number] Critical care first hour
[2020-05-23] MEDS: Menthol/Lanolin/Calamine/Znox 113 GM Tube 1 APPLIC TOPICAL ×3 (05:44→21:11)
[2020-05-23] MEDS: Nystatin Powder 15gm Bottle 1 APPLIC TOPICAL ×3 (05:45→21:11)
[2020-05-23 05:46] LABS: Bedside Glucose 92 mg/dL (70-110)
[2020-05-23] MEDS: Acetaminophen 650 MG/20 ML UDC GT (05:48)
--- NOTE | 2020-05-23 07:12 | PN_ITS ---
Patient Problems: Active and Suspected Problems Hyperglycemia due to diabetes mellitus (Acute) COVID-19 (Acute) Hypoxemia (Acute) Pulmonary embolism (Acute) Sepsis (Acute) Shortness of breath (Acute) Intraperitoneal bleeding (Suspected) Subjective: The patient is a 69 y/o M w/ PMHx: Chronic Thrombocytopenia, Morbid Obesity, HTN, HLD, Diabetes mellitus type II, PAF, MARIELLE, BPH who presented to the [facility] ED on 05/03/20 with history of Covid diagnosis on 04/27/2020 per PCP office with worsening symptoms despite discharged home at that time on Decadron with progressively worsening dyspnea, headache, fatigue, fever, chills. Patient admitted with respiratory failure with BL PNA and BL PE with acute COVID-19 viral syndrome with continued decompensation requiring eventual intubation 05/12/2020, evaluated by communications associate and infectious disease with completion of remdesivir regimen, continued on Decadron with plan to continue 10-day course, treated also initially with antibiotics for sputum culture with noted Haemophilus with 7-day course of Rocephin, transitioned to Eliquis from Pradaxa secondary to bilateral PE however significant concerns as noted with possible GI bleeding although hemoglobin had remained stable therefore discontinued, 05/17/2020 transitioned to heparin drip which failed with onset bloody output via OG however Hgb remained stable despite this onset. 05/18/20 IV scheduled lasix intention per ICU; however, patient with resulting hypotension thus diuresis held with occasional pulse dose Lasix times with recurrent hypotension. 05/19/2020 attempted transition off propofol to Precedex and Seroquel; however, significant bradycardia and agitation with resumption of propofol and fentanyl. 05/21/20 transition to DNR CCA, no intubation status. Patient 05/21/2020 with ongoing low-grade temperature, coarse breath sounds with reported foul-smelling sputum patient initiated on IV Zosyn therapy, MRSA screen performed and negative. Patient with ongoing elevated temperatures, hypotensive especially with any lasix administration attempts, routinely failing SBT with hypoxia, tachycardia and tachypnea. Awaiting family with current plan unless weather causes delay for visit 05/23/2020 with likely terminal extubation. During admission, concern for GI bleed as had been on Pradaxa prior to presentation with transition to Eliquis given noted bilateral PE however onset of concerning GI bleed therefore this had been discontinued, given significant presentation, high risk planned reinitiation anticoagulation with heparin drip 05/17/2020 with close monitoring with noted blood output via OG thus discontinued. Admission 05/03/2020 hemoglobin 13.6, 05/17/2020 11.9-->05/23/20 CBC w/ Hgb 11.4. Stools per staff have transitioned from maroon-colored to brown. Patietn with acute on chronic thrombocytopenia w/ admission platelets 56, improved following anticoagulation hold however despite this hold trended down again with noted platelets 56, heparin drip trial as noted 05/17/20 failed, 05/23/20 CBC w/ plts 45. Elevated LFTs secondary to COVID presentation with admission 05/03/2020 AST/ALT 26/28, alk phos 68 with eventual rise starting on 05/13/2020 with total bilirubin 1.40, AST/ALT 53/78, alk phos 119-->05/23/2020 total bilirubin 1.60, AST/ALT 120/132, alk phos 213, rising again. Patient overnight with no acute events per RN report with noted ongoing fevers, T max 101.1 overnight, failed SBT with ongoing issues with hypoxia, tachycardia, tachypnea with sedation decrease with increased FiO2 requirements following. No further maroon stools. Tolerating TFs. Per discussion with ICU staff and physician plan for family to potentially be present for terminal extubation 05/24/20 most likely. Patient without evidence of chills, nausea, emesis, abdominal pain, chest pain but sedated as noted. Objective: Physical Examination: General: Sedated, intubated, no obvious distress, laying in the ICU bed, NAD, not responding to stimuli. Skin: normal color, turgor, no icterus, cyanosis. HEENT: AT/NC, EOM unable to be assessed given sedated status, PERRLA, mildly dry MM, ET tube and OG tube in place. Lungs: Diminished breath sounds, symmetric rise, intubated, sedated, no obvious rales, rhonchi, wheezing. Heart: Currently, regular rate and regular rhythm; no gallop, rub audible. Abdomen: soft, overly obese, NTTP, ND, normalize distant bowel sounds. Extremities: no cyanosis or clubbing, lessened prior noted mild bilateral ankle and hand nonpitting edema. Neurological: Patient sedated, intubated, not awakening to stimuli today, not able to answer orientation questions, cognitive function not baseline intact, pupils equally reactive to light and accomodation; cranial nerves unable to be assessed given sedated status, not moving extremities to withdrawal, strength accordingly severely globally decreased. Psychiatric: affect appears flat, no acute evidence of depressive or anxiety f eelings. Vitals/I&O's: Vital Signs Temp Pulse Resp BP Pulse Ox 101.1 F H 99 22 H 121/48 H 93 05/23/20 06:00 05/23/20 06:00 05/23/20 06:00 05/23/20 06:00 05/23/20 06:00 Oxygen Flow Rate (L/min) 60 Oxygen Delivery Method Mechanical Ventilator Weight: 288 lb 2.307 oz Body Mass Index (BMI) 42.2 Finger Stick Blood Glucose 161 Intake and Output for Last 24 Hours 05/21/20 05/22/20 05/23/20 23:59 23:59 23:59 Intake Total 2182.90 / 2673.10 3149.09 / 3149.09 689.80 / 689.80 Output Total 1440 / 1840 2014 400 / 400 Balance 742.90 / 833.10 1134.09 / 1134.09 289.80 / 289.80 Laboratory Results 05/22/20 12:00: POC Glucose 73 05/22/20 18:41: POC Glucose 72 05/22/20 23:25: POC Glucose 80 05/23/20 03:30: WBC 5.3, RBC 3.78 L, Hgb 11.4 L, Hct 36.6 L, MCV 96.8 H, MCH 30.2, MCHC 31.1 L, RDW Std Deviation 51.7 H, RDW Coeff of Taras 15.1 H, Plt Count 45 L*, MPV 12.5 H, Immature Gran % (Auto) 1.300 H, Neut % (Auto) 68.9, Lymph % (Auto) 18.2 L, [place] % (Auto) 6.0, Eos % (Auto) 5.2 H, Baso % (Auto) 0.4, Absolute Neuts (auto) 3.7, Absolute Lymphs (auto) 0.97, Nucleated RBC % 0, Differential Comment SCANNED, Diff Path Review August, Platelet Estimate MKD DEC, Polychromasia RARE, Anisocytosis RARE, Macrocytosis RARE 05/23/20 03:30: Sodium 144, Potassium 3.7, Chloride 110 H, Carbon Dioxide 30.0, Anion Gap 4 L, BUN 40 H, Creatinine 0.63 L, Estim Creat Clear Calc 61.14, Est GFR (MDRD) Af Amer 161, Est GFR (MDRD) Non-Af 133, BUN/Creatinine Ratio 63.3 H, Glucose 97, Calcium 8.0 L, Total Bilirubin 1.60 H, AST 120 H, ALT 132 H, Alkaline Phosphatase 213 H, Total Protein 5.7 L, Albumin 1.4 L, Globulin 4.3 H, Albumin/Globulin Ratio 0.3 L 05/23/20 05:41: POC Glucose 92 Current Medications Acetaminophen (Acetaminophen 650 Mg/20 Ml Udc) 650 mg GT Q6H PRN PRN PRN Reason: Pain Score 1-10/Temp > 100.7 F Last Admin: 05/23/20 05:48 Dose: 650 mg Documented by: Al Hydroxide/Mg Hydroxide (Mag Hydrox/Al Hydrox/Simeth 30 Ml Udc) 30 ml GT Q6H PRN PRN PRN Reason: Gastric Burning Albuterol Sulfate (Albuterol Ih 8.5 Gm (Proair) Inhaler (200 Puffs)) 2.5 puff INHALATION Q2H PRN PRN PRN Reason: Shortness of Breath/Wheezing Last Admin: 05/09/20 18:57 Dose: 2.5 puff Documented by: Atorvastatin Calcium (Atorvastatin Calcium 20 Mg Tablet) 20 mg GT QHS KEERTHI Last Admin: 05/22/20 21:07 Dose: 20 mg Documented by: Calamine/Phenol (Menthol/Lanolin/Calamine/Znox 113 Gm Tube) 1 applic TOPICAL TID KEERTHI; Protocol Last Admin: 05/23/20 05:44 Dose: 1 applicatio Documented by: Chlorhexidine Gluconate (Chlorhexidine 15 Ml) 15 ml PO BID KEERTHI Last Admin: 05/22/20 19:49 Dose: 15 ml Documented by: Chlorhexidine Gluconate (Chlorhexidine Gluc 2% Cloth 1 Each Towelette) 1 each TOPICAL DAILY KEERTHI Last Admin: 05/22/20 08:37 Dose: 1 each Documented by: Cholecalciferol (Cholecalciferol (Vit D3) 1,000 Unit (25mcg)) 1,000 unit GT BID COUNT INCLUDES THE [facility] Last Admin: 05/22/20 21:07 Dose: 1,000 unit Documented by: Cyanocobalamin (Cyanocobalamin 500 Mcg Tablet) 1,000 mcg GT DAILY COUNT INCLUDES THE [facility] Last Admin: 05/22/20 08:39 Dose: 1,000 mcg Documented by: Dextrose (Dextrose 50%-Water 25 Gm/50 Ml Disp.Syrin) 0 gm IV X1 PRN; Protocol PRN Reason: Hypoglycemia Last Admin: 05/11/20 03:54 Dose: 12.5 gm Documented by: Glucagon (Glucagon 1 Mg/Ml Syringe) 1 mg IM .X1 PRN PRN Reason: Hypoglycemia Sodium Chloride () 250 mls @ 15 mls/hr IV .[id number] PRN PRN Reason: Saline Flush Last Infusion: 05/23/20 05:44 Dose: 0 mls/hr Documented by: Sodium Chloride () 250 mls @ 15 mls/hr IV .[id number] PRN PRN Reason: Additional IVPB Infusion Propofol (Diprivan) 1,000 mg in 100 mls @ 7.8 mls/hr CONT INF .Q12H COUNT INCLUDES THE [facility]; Protocol Last Titration: 05/23/20 05:00 Dose: 20 mcg/kg/min, 15.6 mls/hr Documented by: Fentanyl Citrate 1,000 mcg/ (Sodium Chloride) 100 mls @ 5 mls/hr CONT INF .Q20H COUNT INCLUDES THE [facility]; Protocol Last Titration: 05/23/20 05:00 Dose: 100 mcg/hr, 10 mls/hr Documented by: Enteral Nutritional Formula (Vital High Protein) 1,000 mls @ 65 mls/hr GT .[id number] COUNT INCLUDES THE [facility] Last Admin: 05/22/20 18:48 Dose: 65 mls/hr Documented by: Pantoprazole Sodium 40 mg/ (Sodium Chloride) 110 mls @ 330 mls/hr IV Q12 COUNT INCLUDES THE [facility] Last Infusion: 05/22/20 21:50 Dose: Infused Documented by: Piperacillin Sod/Tazobactam (Sod 3.375 gm/ Sodium Chloride) 50 mls @ 12.5 mls/hr IV Q8 COUNT INCLUDES THE [facility] Last Admin: 05/23/20 05:44 Dose: 12.5 mls/hr Documented by: Insulin Human Lispro (Insulin Lispro 100 Unit/Ml Insuln.Pen) 0 unit SC Q6 COUNT INCLUDES THE [facility]; Protocol Last Admin: 05/23/20 05:47 Dose: Not Given Documented by: Magnesium Hydroxide (Magnesium Hydroxide 30 Ml Udc) 30 ml GT DAILY PRN PRN PRN Reason: Constipation Last Admin: 05/15/20 05:54 Dose: 30 ml Documented by: Nitroglycerin (Nitroglycerin (Inpatient Use) 0.4 Mg Tab.Subl) 0.4 mg SUBLINGUAL Q5M PRN PRN Reason: CARDIAC/CHEST PAIN Nystatin (Nystatin Powder 15gm Bottle) 1 applic TOPICAL TID COUNT INCLUDES THE [facility]; Protocol Last Admin: 05/23/20 05:45 Dose: 1 applicatio Documented by: Ondansetron HCl (Ondansetron 4 Mg/2 Ml Vial) 4 mg IV Q8H PRN PRN PRN Reason: NAUSEA/VOMITING Last Admin: 05/11/20 09:14 Dose: 4 mg Documented by: Polyethylene Glycol (Polyethylene Glycol 3350 17 Gm Packet) 17 gm PO DAILY PRN PRN Reason: CONSTIPATION Prochlorperazine Edisylate (Prochlorperazine 10 Mg/2 Ml Vial) 5 mg IV Q4H PRN PRN PRN Reason: Breakthrough nausea/vomiting Quetiapine Fumarate (Quetiapine 25 Mg Tablet) 50 mg GT BID COUNT INCLUDES THE [facility] Last Admin: 05/22/20 21:08 Dose: 50 mg Documented by: Senna/Docusate Sodium (Senna/Docusate Sodium 1 Tablet) 2 tablet GT BID PRN PRN Reason: CONSTIPATION Sodium Chloride (0.9% Saline Lock 10 Ml Syringe) 10 - 40 ml IV UD PRN PRN Reason: SALINE FLUSH Last Admin: 05/22/20 08:46 Dose: 10 ml Documented by: Sodium Chloride (Sodium Chloride 0.65% 1 Bertrand Bertrand.Btl) 2 spray NASAL TID PRN PRN PRN Reason: NASAL DRYNESS Last Admin: 05/06/20 21:47 Dose: 2 spray Documented by: STROKE Vital Signs/Narrative: Vital Signs Temp Pulse Resp BP Pulse Ox 05/23/20 06:00 101.1 F H 99 22 H 121/48 H 93 05/23/20 05:00 100.7 F H 97 16 137/67 H 90 05/23/20 04:00 100.2 F H 89 31 H 136/50 H 91 05/23/20 03:40 82 19 H 91 05/23/20 03:38 86 Medical Necessity - Tobacco Use Smoking Status: Never smoker Assessment/Plan All Active Problems Hyperglycemia due to diabetes mellitus (Acute) COVID-19 (Acute) Hypoxemia (Acute) Pulmonary embolism (Acute) Sepsis (Acute) History of cholecystectomy (Resolved) Shortness of breath (Acute) The patient is a 69 y/o M w/ PMHx: Chronic Thrombocytopenia, Morbid Obesity, HTN, HLD, Diabetes mellitus type II, PAF, MARIELLE, BPH who presents to the [facility] ED on 05/03/20 with history of Covid diagnosis on 04/27/2020 per PCP office with worsening symptoms despite discharged home at that time on Decadron with progressively worsening dyspnea, headache, fatigue, fever, chills. 1. Acute hypoxic respiratory failure secondary to acute bilateral pneumonia and bilateral pulmonary emboli secondary to acute COVID-19 viral syndrome: Following admission patient with continued decompensation requiring eventual intubation 05/12/2020, evaluated by communications associate and infectious disease with completion of remdesivir regimen, continued on Decadron with plan to continue 10-day course, treated also initially with antibiotics for sputum culture with noted Haemophilus with 7-day course of Rocephin, transitioned to Eliquis from Pradaxa secondary to bilateral PE however significant concerns as noted with possible GI bleeding although hemoglobin had remained stable therefore discontinued, 05/17/2020 transitioned to heparin drip which failed with onset bloody output via OG however Hgb remained stable despite this onset. 05/18/20 IV scheduled lasix intention per ICU; however, patient with resulting hypotension thus diuresis held with occasional pulse dose Lasix times with recurrent hypotension. 05/19/2020 attempted transition off propofol to Precedex and Seroquel; however, significant bradycardia and agitation with resumption of propofol and fentanyl. 05/21/20 transition to DNR CCA, no intubation status. Patient 05/21/2020 with ongoing low-grade temperature, coarse breath sounds with reported foul-smelling sputum patient initiated on IV Zosyn therapy, MRSA screen performed and negative. Patient with ongoing elevated temperatures, hypotensive especially with any lasix administration attempts, routinely failing SBT with hypoxia, tachycardia and tachypnea. Awaiting family with current plan unless weather causes delay for visit 05/23/2020 with likely terminal extubation. 2. Acute GI bleed with melanotic stools noted to be occult blood positive: Continue patient on twice daily high-dose PPI, had been on Pradaxa prior to presentation with transition to Eliquis given noted bilateral PE however onset of concerning GI bleed therefore this had been discontinued, given significant presentation, high risk planned reinitiation anticoagulation with heparin drip 05/17/2020 with close monitoring with noted blood output via OG thus discontinued. Admission 05/03/2020 hemoglobin 13.6, 05/17/2020 11.9-->05/23/20 CBC w/ Hgb 11.4, Plts 45. Stools per staff have transition from maroon-colored to brown. 3. Acute on Chronic thrombocytopenia: Admission platelets 56, improved following anticoagulation hold however despite this hold trended down again with noted 05/17/2020 platelets 56, heparin drip trial as noted 05/17/20 failed, 05/23/20 CBC w/ plts 45, continue to closely monitor. Prior baseline platelets appeared primarily 60-80. 4. Elevated LFTs: Admission 05/03/2020 AST/ALT 26/28, alk phos 68 with eventual rise starting on 05/13/2020 with total bilirubin 1.40, AST/ALT 53/78, alk phos 119-->05/23/2020 total bilirubin 1.60, AST/ALT 120/132, alk phos 213, continues to slowly rise again, had been initially improving, secondary to #1. 5. Diabetes mellitus type II with hyperglycemia secondary to #1 with steroid usage as noted: Hold oral home regimen, altered insulin regimen given since presentation, initially 120 u BID-->90 u BID-->70 u BID 05/22/20, now d/c given episodes of worsening hypoglycemia over the last 24 hours, continued on tube feeds, continue accu checks w/ ISS per tube feed protocols. BS over the last 24 hours ranged 72-192. 6. PAF: Previously on Pradaxa, discontinued and transition to Eliquis upon presentation as noted with #1 however held given #2, currently attempting heparin drip with continued close monitoring as noted, not on rate or rhythm agent currently. 7. Hypertension: BPs remain low normal step following IV Lasix and ministration with hypotension transiently, outpatient normally on atenolol, losartan, jacqui nue to hold. 8. Hyperlipidemia: We will continue patient statin therapy. 9. Morbid Obesity: Weight loss and lifestyle changes will be encouraged once patient becomes cognizant/extubated if appropriate, nutrition consulted and following as noted for tube feeds. 10. MARIELLE: Currently intubated and sedated as noted above. 11. GERD: Currently on IV PPI as noted above. 12. DVT prophylaxis: SCDs, heparin drip unsuccessful, not anticoagulated. 13. CODE STATUS: DNR CCA, no intubation status, expect likely family visitation 05/23/2020 with terminal extubation. Inpatient E&M: 07992 Subs Hosp L3
[2020-05-23] MEDS: CHLORHEXIDINE GLUC 2% CLOTH 1 EACH TOWELETTE TOPICAL (08:00)
[2020-05-23] MEDS: Chlorhexidine 15 ML PO ×2 (08:00→21:11)
[2020-05-23] MEDS: Propofol 10MG/Ml 1,000 MG/100 ML Bottle 19.5 MG CONT INF (08:50)
[2020-05-23] MEDS: QUEtiapine 25 MG Tablet 50 MG GT ×2 (09:46→21:07)
[2020-05-23] MEDS: Cyanocobalamin 500 MCG Tablet 1000 MCG GT (09:47)
[2020-05-23] MEDS: Vital High Protein 1,000 ML 65 ML GT (10:27)
[2020-05-23 11:16] LABS: Bedside Glucose 142 mg/dL (70-110)
[2020-05-23] MEDS: Propofol 10MG/Ml 1,000 MG/100 ML Bottle 11.7 MG CONT INF (16:10)
[2020-05-23] MEDS: Insulin Lispro 100 UNIT/ML INSULN.PEN SC ×2 (17:43→23:24)
[2020-05-23 17:46] LABS: Bedside Glucose 203 mg/dL (70-110)
[2020-05-23] MEDS: Atorvastatin Calcium 20 MG Tablet GT (21:07)
[2020-05-23 23:31] LABS: Bedside Glucose 252 mg/dL (70-110)
[2020-05-24] VITALS (35 sets, daily range): BP systolic 107–184; BP diastolic 48–83; PULSE 74–100; RESP 12–30; TEMP 37.4–37.9; O2SAT 88–96
[2020-05-24] MEDS: Vital High Protein 1,000 ML 65 ML GT ×2 (02:53→17:03)
[2020-05-24 04:40] LABS: Absolute Lymphocyte Count 0.75 X10^3/uL (0.83-4.51); Absolute Neutrophil Count 2.4 X10^3/uL (2.0-7.7); Basophil# 0.01 X10^3/uL; Basophil% 0.3 % (0-1); Eosinophil# 0.19 X10^3/uL; Eosinophils% 5.3 % (0-5); Hematocrit 34.1 % (40-54); Hemoglobin 10.7 g/dL (13.0-16.5); Lymphocyte # 0.75 X10^3/ul (4.0); Lymphocyte % 20.8 % (19-41); Mean Corp Hgb Conc 31.4 g/dL (32-36); Mean Corpuscular Hgb 30.7 pg (27.0-32.0); Mean Platelet Vol. 12.2 fl (6.2-12.0); Monocyte# 0.24 X10^3/uL; Monocyte% 6.6 % (0-10); NRBC Flagged by Analyzer 0 % (0-5); Neutrophil # 2.36 X10^3/uL (2.7-7.7); Neutrophil % 65.3 % (47-70); POSITIVE COUNT YES; RBC Distribution Width CV 15.6 % (11.6-14.6); RBC Distribution Width SD 54.5 fl (35.1-43.9); Red Blood Count 3.48 M/mm3 (4.6-6.2); White Blood Count 3.6 K/mm3 (4.4-11.0)
[2020-05-24 04:42] LABS: Differential Indicated SCAN CRITERIA MET; Platelet Count 40 K/mm3 (150-450)
[2020-05-24 05:00] LABS: ALB/GLOB Ratio 0.3 RATIO (0.9-2.4); AST(SGOT) 64 U/L (15-37); Alanine Aminotransfer ALT/SGPT 91 U/L (16-61); Albumin, Serum 1.2 g/dL (3.2-5.0); Alkaline Phosphatase 205 U/L (45-117); Anion Gap 4 (5-15); BUN 37 mg/dL (7-18); BUN/Creat Ratio 53.1 RATIO (10-20); Chloride 109 mmol/L (98-107); EST Glomerular Filtration Rate 119 mL/min (>60); Est Glom Filt Rate - Afr Amer 144 mL/min (>60); Estimated Creatinine Clearance 61.14 ml/min; Globulin 4.3 g/dL (2.2-4.2); Glucose 279 mg/dL (74-106); Potassium 4.2 mmol/L (3.5-5.1); Protein, Total 5.5 g/dL (6.4-8.2); Sodium Level 143 mmol/L (136-145)
[2020-05-24 05:14] LABS: Platelet Estimate MKD DEC (ADEQ)
[2020-05-24] MEDS: Propofol 10MG/Ml 1,000 MG/100 ML Bottle 15.6 MG CONT INF (05:22)
[2020-05-24] MEDS: Nystatin Powder 15gm Bottle 1 APPLIC TOPICAL ×3 (05:28→21:02)
[2020-05-24] MEDS: Menthol/Lanolin/Calamine/Znox 113 GM Tube 1 APPLIC TOPICAL ×3 (05:28→21:02)
[2020-05-24] MEDS: Insulin Lispro 100 UNIT/ML INSULN.PEN SC ×4 (05:28→23:26)
[2020-05-24 05:36] LABS: Bedside Glucose 253 mg/dL (70-110)
--- NOTE | 2020-05-24 07:22 | PCM.PN.INT ---
Subjective: Patient did okay overnight. Patient has had multiple bowel movements, but no melena has been reported. Patient's blood sugars have been trending up. Patient's daughter is reportedly coming into town, but there is been no communication with the hospital staff thus far about goals of therapy. General: - - Intubated and sedated. Opens eyes briefly to voice, but not following commands. HEENT: Atraumatic, PERRLA, EOMI, Normocephalic, - - Scleral injection without icterus Oral: No Gingival or Mucosal Lesions/ Ulcerations, Dry Mucosa Neck: Supple, No Nodes, Trachea Midline Lungs: No rales, Rhonchi, Wheezes, - - Symmetric expansion Cardiovascular: Regular rate, Regular Rhythm, Normal S1, Normal S2, Murmur - Grade 2 out of 6 systolic ejection murmur at the right sternal border, No rub noted, No Gallop Abdomen: Bowel Sounds Present, Soft, Non Tender, Non-Distended, Obese Extremities: No clubbing, No cyanosis, Edema Skin: - - No change from previous Musculoskeletal: No Tenderness to Palpation of Joints or Extremities Lymphatic: No Cervical, Supraclavicular, or Inguinal Adenopathy Neurological: - - Some possible posturing of the upper extremities, but not consistent to painful stimuli. Positive gag and cough reflex is noted. Psych/Mental Status: Flat Affect Vital Signs Temp Pulse Resp BP Pulse Ox 37.8 C H 95 24 H 136/61 H 89 05/24/20 05:00 05/24/20 06:00 05/24/20 06:00 05/24/20 06:00 05/24/20 06:00 Oxygen Flow Rate (L/min) 60 Oxygen Delivery Method Mechanical Ventilator Weight: 126.4 kg Body Mass Index (BMI) 42.2 Finger Stick Blood Glucose 161 Intake and Output for Last 24 Hours 05/22/20 05/23/20 05/24/20 23:59 23:59 23:59 Intake Total 3149.09 / 3149.09 3225.63 / 3251.23 523.37 / 523.37 Output Total 2014 1575 / 1575 350 / 350 Balance 1134.09 / 1134.09 1650.63 / 1676.23 173.37 / 173.37 Labs (Last 48 Hours) 05/22/20 05/22/20 05/22/20 12:00 18:41 23:25 WBC RBC Hgb Hct MCV MCH MCHC RDW Std Deviation RDW Coeff of Taras Plt Count MPV Immature Gran % (Auto) Neut % (Auto) Lymph % (Auto) [place] % (Auto) Eos % (Auto) Baso % (Auto) Absolute Neuts (auto) Absolute Lymphs (auto) Nucleated RBC % Differential Comment Diff Path Review Platelet Estimate Polychromasia Anisocytosis Macrocytosis Sodium Potassium Chloride Carbon Dioxide Anion Gap BUN Creatinine Estim Creat Clear Calc Est GFR (MDRD) Af Amer Est GFR (MDRD) Non-Af BUN/Creatinine Ratio Glucose Calcium Total Bilirubin AST ALT Alkaline Phosphatase Total Protein Albumin Globulin Albumin/Globulin Ratio POC Glucose 73 72 80 05/23/20 05/23/20 05/23/20 03:30 03:30 05:41 WBC 5.3 RBC 3.78 L Hgb 11.4 L Hct 36.6 L MCV 96.8 H MCH 30.2 MCHC 31.1 L RDW Std Deviation 51.7 H RDW Coeff of Taras 15.1 H Plt Count 45 L* MPV 12.5 H Immature Gran % (Auto) 1.300 H Neut % (Auto) 68.9 Lymph % (Auto) 18.2 L [place] % (Auto) 6.0 Eos % (Auto) 5.2 H Baso % (Auto) 0.4 Absolute Neuts (auto) 3.7 Absolute Lymphs (auto) 0.97 Nucleated RBC % 0 Differential Comment SCANNED Diff Path Review May foll Platelet Estimate MKD DEC Polychromasia RARE Anisocytosis RARE Macrocytosis RARE Sodium 144 Potassium 3.7 Chloride 110 H Carbon Dioxide 30.0 Anion Gap 4 L BUN 40 H Creatinine 0.63 L Estim Creat Clear Calc 61.14 Est GFR (MDRD) Af Amer 161 Est GFR (MDRD) Non-Af 133 BUN/Creatinine Ratio 63.3 H Glucose 97 Calcium 8.0 L Total Bilirubin 1.60 H AST 120 H ALT 132 H Alkaline Phosphatase 213 H Total Protein 5.7 L Albumin 1.4 L Globulin 4.3 H Albumin/Globulin Ratio 0.3 L POC Glucose 92 05/23/20 05/23/20 05/23/20 11:09 17:40 23:23 WBC RBC Hgb Hct MCV MCH MCHC RDW Std Deviation RDW Coeff of Taras Plt Count MPV Immature Gran % (Auto) Neut % (Auto) Lymph % (Auto) [place] % (Auto) Eos % (Auto) Baso % (Auto) Absolute Neuts (auto) Absolute Lymphs (auto) Nucleated RBC % Differential Comment Diff Path Review Platelet Estimate Polychromasia Anisocytosis Macrocytosis Sodium Potassium Chloride Carbon Dioxide Anion Gap BUN Creatinine Estim Creat Clear Calc Est GFR (MDRD) Af Amer Est GFR (MDRD) Non-Af BUN/Creatinine Ratio Glucose Calcium Total Bilirubin AST ALT Alkaline Phosphatase Total Protein Albumin Globulin Albumin/Globulin Ratio POC Glucose 142 H 203 H 252 H 05/24/20 05/24/20 05/24/20 04:30 04:30 05:26 WBC 3.6 L RBC 3.48 L Hgb 10.7 L Hct 34.1 L MCV 98.0 H MCH 30.7 MCHC 31.4 L RDW Std Deviation 54.5 H RDW Coeff of Taras 15.6 H Plt Count 40 L* MPV 12.2 H Immature Gran % (Auto) 1.700 H Neut % (Auto) 65.3 Lymph % (Auto) 20.8 [place] % (Auto) 6.6 Eos % (Auto) 5.3 H Baso % (Auto) 0.3 Absolute Neuts (auto) 2.4 Absolute Lymphs (auto) 0.75 L Nucleated RBC % 0 Differential Comment Diff Path Review May foll Platelet Estimate MKD DEC Polychromasia Anisocytosis Macrocytosis Sodium 143 Potassium 4.2 Chloride 109 H Carbon Dioxide 30.0 Anion Gap 4 L BUN 37 H Creatinine 0.70 Estim Creat Clear Calc 61.14 Est GFR (MDRD) Af Amer 144 Est GFR (MDRD) Non-Af 119 BUN/Creatinine Ratio 53.1 H Glucose 279 H Calcium 8.0 L Total Bilirubin 1.50 H AST 64 H ALT 91 H Alkaline Phosphatase 205 H Total Protein 5.5 L Albumin 1.2 L Globulin 4.3 H Albumin/Globulin Ratio 0.3 L POC Glucose 253 H Medical Necessity - Tobacco Use Smoking Status: Never smoker Assessment/Plan All Active Problems Hyperglycemia due to diabetes mellitus (Acute) COVID-19 (Acute) Hypoxemia (Acute) Pulmonary embolism (Acute) Sepsis (Acute) History of cholecystectomy (Resolved) Shortness of breath (Acute) RECOMMENDATIONS: 1. Continue to wean FiO2 and PEEP to maintain saturations at or above 90%. 2. Continue to hold all forms of systemic anticoagulation over concerns for GI blood loss. 3. Continue PPI therapy twice daily. 4. Continue tube feeds as tolerated. 5. Continue sliding scale insulin coverage. 6. Continue empiric antimicrobials. 7. Await decision from patient's family on goals of therapy IMPRESSIONS: 1. Acute hypoxemic respiratory failure secondary to COVID-19 pneumonia and bilateral pulmonary emboli The patient was initially admitted to the hospital and diagnosed with COVID-19 pneumonia and bilateral pulmonary emboli. Over the course of his hospitalization, the patient continued to decompensate from a respiratory perspective, requiring increasing amounts of supplemental oxygen. The patient eventually required intubation on May 12. Plan to continue the patient on assist control mode of mechanical ventilation and wean FiO2 and PEEP to maintain saturations at or above 90%. The patient has completed a treatment course of remdesivir and Decadron. Patient has not been able to tolerate anticoagulation secondary to bowel issues. Patient is on day 13 of ventilator, and previous conversations were not suggestive that trach and PEG would be an option. Hold on any active intervention until goals of therapy can be addressed with family. 2. Melena/occult blood positive stools Plan to continue current supportive measures with twice daily PPI therapy. The patient is unable to tolerate any form of systemic anticoagulation without developing increased GI blood loss. Continue to monitor H&H daily. No current indication for transfusion of blood products. 3. Diabetes mellitus/hypertension/hyperlipidemia/BPH/obesity/paroxysmal atrial fibrillation Complicates care, management, recovery and prognosis. Continue home medications as indicated. Physical therapy to work with the patient as tolerated. Continue sliding scale insulin coverage. Will restart Lantus at half dose given progression of hyperglycemia. Addendum 1320: Spoke with and daughter at length about goals of therapy. Family anticipates visiting tomorrow following the snowstorm at approximately 2-3 PM. Following visitation, a palliative extubation would be expected. Patient is to continue on the ventilator overnight. They understand that if his heart were to stop the no aggressive measures will be taken. Patient's daughter has had a liver transplant and plans to visit via [facility] once her mother arrives. No plans to escalate care overnight otherwise. TIME: 48 minutes of critical care time, independent of procedures, was spent addressing the patient's acute hypoxemic respiratory failure, COVID-19 pneumonia, pulmonary emboli, possible lower GI bleeding, review of all data and collaboration with the care team. (6 AM to 7 AM) [phone]: [id number] Critical care first hour
[2020-05-24] MEDS: Chlorhexidine 15 ML PO ×2 (07:55→20:59)
[2020-05-24] MEDS: CHLORHEXIDINE GLUC 2% CLOTH 1 EACH TOWELETTE TOPICAL (07:55)
[2020-05-24] MEDS: Cyanocobalamin 500 MCG Tablet 1000 MCG GT (07:56)
[2020-05-24] MEDS: QUEtiapine 25 MG Tablet 50 MG GT ×2 (07:56→21:01)
[2020-05-24] MEDS: Propofol 10MG/Ml 1,000 MG/100 ML Bottle 15.2 MG CONT INF ×3 (08:30→20:59)
[2020-05-24 12:05] LABS: Bedside Glucose 290 mg/dL (70-110)
--- NOTE | 2020-05-24 12:17 | PN_ITS ---
Patient Problems: Active and Suspected Problems Hyperglycemia due to diabetes mellitus (Acute) COVID-19 (Acute) Hypoxemia (Acute) Pulmonary embolism (Acute) Sepsis (Acute) Shortness of breath (Acute) Intraperitoneal bleeding (Suspected) Subjective: Still on vent 50% FiO2. Vitals/I&O's: Vital Signs Temp Pulse Resp BP Pulse Ox 37.4 C H 75 18 132/59 H 95 05/24/20 12:00 05/24/20 12:00 05/24/20 12:00 05/24/20 12:00 05/24/20 12:00 Oxygen Flow Rate (L/min) 60 Oxygen Delivery Method Mechanical Ventilator Weight: 126.4 kg Body Mass Index (BMI) 42.2 Finger Stick Blood Glucose 161 Intake and Output for Last 24 Hours 05/22/20 05/23/20 05/24/20 23:59 23:59 23:59 Intake Total 3149.09 / 3149.09 3225.63 / 3251.23 1459.27 / 1459.27 Output Total 2014 1575 / 1575 565 / 565 Balance 1134.09 / 1134.09 1650.63 / 1676.23 894.27 / 894.27 General: - - unresponsive to verbal and noxious stimuli. HEENT: Atraumatic, Normocephalic Oral: Moist Mucosa, No Gingival or Mucosal Lesions/ Ulcerations Neck: No Nodes, Thyroid Normal Size and Texture Lungs: Clear to auscultation, - - coarse breath sounds Cardiovascular: Regular rate, Regular Rhythm, Normal S1, Normal S2, No murmurs Abdomen: Bowel Sounds Present, Soft, Non Tender, Non-Distended, No Hepato- splenomegaly Extremities: No edema, No Calf Tenderness Laboratory Results 05/23/20 17:40: POC Glucose 203 H 05/23/20 23:23: POC Glucose 252 H 05/24/20 04:30: WBC 3.6 L, RBC 3.48 L, Hgb 10.7 L, Hct 34.1 L, MCV 98.0 H, MCH 30.7, MCHC 31.4 L, RDW Std Deviation 54.5 H, RDW Coeff of Taras 15.6 H, Plt Count 40 L*, MPV 12.2 H, Immature Gran % (Auto) 1.700 H, Neut % (Auto) 65.3, Lymph % (Auto) 20.8, [place] % (Auto) 6.6, Eos % (Auto) 5.3 H, Baso % (Auto) 0.3, Absolute Neuts (auto) 2.4, Absolute Lymphs (auto) 0.75 L, Nucleated RBC % 0, Diff Path Review August foll, Platelet Estimate MKD 05/24/20 04:30: Sodium 143, Potassium 4.2, Chloride 109 H, Carbon Dioxide 30.0, Anion Gap 4 L, BUN 37 H, Creatinine 0.70, Estim Creat Clear Calc 61.14, Est GFR (MDRD) Af Amer 144, Est GFR (MDRD) Non-Af 119, BUN/Creatinine Ratio 53.1 H, Glucose 279 H, Calcium 8.0 L, Total Bilirubin 1.50 H, AST 64 H, ALT 91 H, Alkaline Phosphatase 205 H, Total Protein 5.5 L, Albumin 1.2 L, Globulin 4.3 H, Albumin/Globulin Ratio 0.3 L 05/24/20 05:26: POC Glucose 253 H 05/24/20 11:53: POC Glucose 290 H Current Medications Acetaminophen (Acetaminophen 650 Mg/20 Ml Udc) 650 mg GT Q6H PRN PRN PRN Reason: Pain Score 1-10/Temp > 100.7 F Last Admin: 05/23/20 05:48 Dose: 650 mg Documented by: Al Hydroxide/Mg Hydroxide (Mag Hydrox/Al Hydrox/Simeth 30 Ml Udc) 30 ml GT Q6H PRN PRN PRN Reason: Gastric Burning Albuterol Sulfate (Albuterol Ih 8.5 Gm (Proair) Inhaler (200 Puffs)) 2.5 puff INHALATION Q2H PRN PRN PRN Reason: Shortness of Breath/Wheezing Last Admin: 05/09/20 18:57 Dose: 2.5 puff Documented by: Atorvastatin Calcium (Atorvastatin Calcium 20 Mg Tablet) 20 mg GT QHS KEERTHI Last Admin: 05/23/20 21:07 Dose: 20 mg Documented by: Calamine/Phenol (Menthol/Lanolin/Calamine/Znox 113 Gm Tube) 1 applic TOPICAL TID KEERTHI; Protocol Last Admin: 05/24/20 11:55 Dose: 1 applicatio Documented by: Chlorhexidine Gluconate (Chlorhexidine 15 Ml) 15 ml PO BID KEERTHI Last Admin: 05/24/20 07:55 Dose: 15 ml Documented by: Chlorhexidine Gluconate (Chlorhexidine Gluc 2% Cloth 1 Each [place]) 1 each TOPICAL DAILY [facility] Last Admin: 05/24/20 07:55 Dose: 1 each Documented by: Cholecalciferol (Cholecalciferol (Vit D3) 1,000 Unit (25mcg)) 1,000 unit GT BID KEERTHI Last Admin: 05/24/20 07:56 Dose: 1,000 unit Documented by: Cyanocobalamin (Cyanocobalamin 500 Mcg Tablet) 1,000 mcg GT DAILY [facility] Last Admin: 05/24/20 07:56 Dose: 1,000 mcg Documented by: Dextrose (Dextrose 50%-Water 25 Gm/50 Ml Disp.Syrin) 0 gm IV X1 PRN; Protocol PRN Reason: Hypoglycemia Last Admin: 05/11/20 03:54 Dose: 12.5 gm Documented by: Glucagon (Glucagon 1 Mg/Ml Syringe) 1 mg IM .X1 PRN PRN Reason: Hypoglycemia Sodium Chloride () 250 mls @ 15 mls/hr IV .[id number] PRN PRN Reason: Saline Flush Last Infusion: 05/24/20 11:22 Dose: 0 mls/hr Documented by: Sodium Chloride () 250 mls @ 15 mls/hr IV .[id number] PRN PRN Reason: Additional IVPB Infusion Enteral Nutritional Formula (Vital High Protein) 1,000 mls @ 65 mls/hr GT .[id number] [facility] Last Admin: 05/24/20 02:53 Dose: 65 mls/hr Documented by: Pantoprazole Sodium 40 mg/ (Sodium Chloride) 110 mls @ 330 mls/hr IV Q12 [facility] Last Infusion: 05/24/20 08:19 Dose: Infused Documented by: Fentanyl Citrate 1,000 mcg/ (Sodium Chloride) 100 mls @ 5 mls/hr CONT INF .Q20H [facility]; Protocol Last Titration: 05/24/20 11:00 Dose: 100 mcg/hr, 10 mls/hr Documented by: Propofol (Diprivan) 1,000 mg in 100 mls @ 7.584 mls/hr CONT INF .Q12H [facility]; Protocol Last Titration: 05/24/20 11:00 Dose: 20 mcg/kg/min, 15.2 mls/hr Documented by: Insulin Glargine (Insulin Glargine 100 Units/Ml Pen) 35 units SC BID [facility] Last Admin: 05/24/20 07:55 Dose: 35 u Documented by: Insulin Human Lispro (Insulin Lispro 100 Unit/Ml Insuln.Pen) 0 unit SC Q6 [facility]; Protocol Last Admin: 05/24/20 11:55 Dose: 9 u Documented by: Magnesium Hydroxide (Magnesium Hydroxide 30 Ml Udc) 30 ml GT DAILY PRN PRN PRN Reason: Constipation Last Admin: 05/15/20 05:54 Dose: 30 ml Documented by: Nitroglycerin (Nitroglycerin (Inpatient Use) 0.4 Mg Tab.Subl) 0.4 mg SUBLINGUAL Q5M PRN PRN Reason: CARDIAC/CHEST PAIN Nystatin (Nystatin Powder 15gm Bottle) 1 applic TOPICAL TID [facility]; Protocol Last Admin: 05/24/20 11:56 Dose: 1 applicatio Documented by: Ondansetron HCl (Ondansetron 4 Mg/2 Ml Vial) 4 mg IV Q8H PRN PRN PRN Reason: NAUSEA/VOMITING Last Admin: 05/11/20 09:14 Dose: 4 mg Documented by: Polyethylene Glycol (Polyethylene Glycol 3350 17 Gm Packet) 17 gm PO DAILY PRN PRN Reason: CONSTIPATION Prochlorperazine Edisylate (Prochlorperazine 10 Mg/2 Ml Vial) 5 mg IV Q4H PRN PRN PRN Reason: Breakthrough nausea/vomiting Quetiapine Fumarate (Quetiapine 25 Mg Tablet) 50 mg GT BID [facility] Last Admin: 05/24/20 07:56 Dose: 50 mg Documented by: Senna/Docusate Sodium (Senna/Docusate Sodium 1 Tablet) 2 tablet GT BID PRN PRN Reason: CONSTIPATION Sodium Chloride (0.9% Saline Lock 10 Ml Syringe) 10 - 40 ml IV UD PRN PRN Reason: SALINE FLUSH Last Admin: 05/22/20 08:46 Dose: 10 ml Documented by: Sodium Chloride (Sodium Chloride 0.65% 1 [place].Btl) 2 spray NASAL TID PRN PRN PRN Reason: NASAL DRYNESS Last Admin: 05/06/20 21:47 Dose: 2 spray Documented by: STROKE Vital Signs/Narrative: Vital Signs Temp Pulse Resp BP BP Pulse Ox 05/24/20 12:00 37.4 C H 75 18 132/59 H 95 05/24/20 11:00 76 18 129/60 H 93 05/24/20 10:00 77 17 121/54 H 94 05/24/20 09:15 78 18 92 05/24/20 09:00 78 19 H 120/48 L 92 Medical Necessity - Tobacco Use Smoking Status: Never smoker Assessment/Plan All Active Problems Hyperglycemia due to diabetes mellitus (Acute) COVID-19 (Acute) Hypoxemia (Acute) Pulmonary embolism (Acute) Sepsis (Acute) History of cholecystectomy (Resolved) Shortness of breath (Acute) 1. Acute hypoxic respiratory failure secondary * multifactorial * on vent with FiO2 50% * family en route for possible terminal extubation 2. acute bilateral pneumonia, pneumococcal and H. influenza: * completed pip/tazo 3. bilateral pulmonary emboli secondary to acute COVID-19 viral syndrome * anticoagulation held given GI bleed. 4. acute COVID 19 pneumonia: * completed dexa and rem-d 5. Acute GI bleed with melanotic stools noted to be occult blood positive: * 2/ anticoagulation and thrombocytopenia * anticoagulation held. * Stools per staff have transition from maroon-colored to brown. 6. Acute on Chronic thrombocytopenia: * Admission platelets 56, improved following anticoagulation hold however despite this hold trended down again with noted 05/17/2020 platelets 56, heparin drip trial as noted 05/17/20 failed, 05/23/20 CBC w/ plts 45, continue to closely monitor. Prior baseline platelets appeared primarily 60-80. 7. Transaminitis: * Ongoing * Admission 05/03/2020 AST/ALT 26/28, alk phos 68 with eventual rise starting on 05/13/2020 with total bilirubin 1.40, AST/ALT 53/78, alk phos 119-->05/23/2020 total bilirubin 1.60, AST/ALT 120/132, alk phos 213, continues to slowly rise again, had been initially improving, secondary to #1. 8. Diabetes mellitus type II * uncontrolled * glargine increased * continue SSI 9. PAF: * off anticoagulation given #5 10. Hypertension: * BPs remain low normal step following IV Lasix and ministration with hypotension transiently, outpatient normally on atenolol, losartan, continue to hold. 11. Hyperlipidemia: We will continue patient statin therapy. 12. Morbid Obesity: Weight loss and lifestyle changes will be encouraged once patient becomes cognizant/extubated if appropriate, nutrition consulted and following as noted for tube feeds. 13. MARIELLE: Currently intubated and sedated as noted above. 14. GERD: Currently on IV PPI as noted above. 15. DVT prophylaxis: SCDs, heparin drip unsuccessful, not anticoagulated. 16. CODE STATUS: DNR CCA, no intubation status, Inpatient E&M: [id number] [facility] L2
--- NOTE | 2020-05-24 14:11 | PN.ID_ITS ---
Patient Problems: Active and Suspected Problems Hyperglycemia due to diabetes mellitus (Acute) COVID-19 (Acute) Hypoxemia (Acute) Pulmonary embolism (Acute) Sepsis (Acute) Shortness of breath (Acute) Intraperitoneal bleeding (Suspected) Subjective: On vent, no fever - Physical Exam Vitals/I&O's: Vital Signs Temp Pulse Resp BP Pulse Ox 99.3 F H 74 17 127/59 H 95 05/24/20 12:00 05/24/20 13:08 05/24/20 13:08 05/24/20 13:00 05/24/20 13:08 Oxygen Flow Rate (L/min) 60 Oxygen Delivery Method Mechanical Ventilator Weight: 126.4 kg Body Mass Index (BMI) 42.2 Finger Stick Blood Glucose 161 Intake and Output for Last 24 Hours 05/22/20 05/23/20 05/24/20 23:59 23:59 23:59 Intake Total 3149.09 / 3149.09 3225.63 / 3251.23 1509.67 / 1509.67 Output Total 2014 1575 / 1575 565 / 565 Balance 1134.09 / 1134.09 1650.63 / 1676.23 944.67 / 944.67 General: Non-Cooperative Lungs: Clear to auscultation, Normal air movement Cardiovascular: Regular rate, Regular Rhythm Abdomen: Soft, Non Tender, Non-Distended Skin: No rashes Laboratory Results 05/23/20 17:40: POC Glucose 203 H 05/23/20 23:23: POC Glucose 252 H 05/24/20 04:30: WBC 3.6 L, RBC 3.48 L, Hgb 10.7 L, Hct 34.1 L, MCV 98.0 H, MCH 30.7, MCHC 31.4 L, RDW Std Deviation 54.5 H, RDW Coeff of Taras 15.6 H, Plt Count 40 L*, MPV 12.2 H, Immature Gran % (Auto) 1.700 H, Neut % (Auto) 65.3, Lymph % (Auto) 20.8, [place] % (Auto) 6.6, Eos % (Auto) 5.3 H, Baso % (Auto) 0.3, Absolute Neuts (auto) 2.4, Absolute Lymphs (auto) 0.75 L, Nucleated RBC % 0, Diff Path Review May foll, Platelet Estimate MKD 05/24/20 04:30: Sodium 143, Potassium 4.2, Chloride 109 H, Carbon Dioxide 30.0, Anion Gap 4 L, BUN 37 H, Creatinine 0.70, Estim Creat Clear Calc 61.14, Est GFR (MDRD) Af Amer 144, Est GFR (MDRD) Non-Af 119, BUN/Creatinine Ratio 53.1 H, Glucose 279 H, Calcium 8.0 L, Total Bilirubin 1.50 H, AST 64 H, ALT 91 H, Alkaline Phosphatase 205 H, Total Protein 5.5 L, Albumin 1.2 L, Globulin 4.3 H, Albumin/Globulin Ratio 0.3 L 05/24/20 05:26: POC Glucose 253 H 05/24/20 11:53: POC Glucose 290 H Current Medications Acetaminophen (Acetaminophen 650 Mg/20 Ml Udc) 650 mg GT Q6H PRN PRN PRN Reason: Pain Score 1-10/Temp > 100.7 F Last Admin: 05/23/20 05:48 Dose: 650 mg Documented by: Al Hydroxide/Mg Hydroxide (Mag Hydrox/Al Hydrox/Simeth 30 Ml Udc) 30 ml GT Q6H PRN PRN PRN Reason: Gastric Burning Albuterol Sulfate (Albuterol Ih 8.5 Gm (Proair) Inhaler (200 Puffs)) 2.5 puff INHALATION Q2H PRN PRN PRN Reason: Shortness of Breath/Wheezing Last Admin: 05/09/20 18:57 Dose: 2.5 puff Documented by: Atorvastatin Calcium (Atorvastatin Calcium 20 Mg Tablet) 20 mg GT QHS KEERTHI Last Admin: 05/23/20 21:07 Dose: 20 mg Documented by: Calamine/Phenol (Menthol/Lanolin/Calamine/Znox 113 Gm Tube) 1 applic TOPICAL TID KEERTHI; Protocol Last Admin: 05/24/20 11:55 Dose: 1 applicatio Documented by: Chlorhexidine Gluconate (Chlorhexidine 15 Ml) 15 ml PO BID KEERTHI Last Admin: 05/24/20 07:55 Dose: 15 ml Documented by: Chlorhexidine Gluconate (Chlorhexidine Gluc 2% Cloth 1 Each Tow[place]lette) 1 each TOPICAL DAILY KEERTHI Last Admin: 05/24/20 07:55 Dose: 1 each Documented by: Cholecalciferol (Cholecalciferol (Vit D3) 1,000 Unit (25mcg)) 1,000 unit GT BID [facility] Last Admin: 05/24/20 07:56 Dose: 1,000 unit Documented by: Cyanocobalamin (Cyanocobalamin 500 Mcg Tablet) 1,000 mcg GT DAILY [facility] Last Admin: 05/24/20 07:56 Dose: 1,000 mcg Documented by: Dextrose (Dextrose 50%-Water 25 Gm/50 Ml Disp.Syrin) 0 gm IV X1 PRN; Protocol PRN Reason: Hypoglycemia Last Admin: 05/11/20 03:54 Dose: 12.5 gm Documented by: Glucagon (Glucagon 1 Mg/Ml Syringe) 1 mg IM .X1 PRN PRN Reason: Hypoglycemia Sodium Chloride () 250 mls @ 15 mls/hr IV .[id number] PRN PRN Reason: Saline Flush Last Infusion: 05/24/20 11:22 Dose: 0 mls/hr Documented by: Sodium Chloride () 250 mls @ 15 mls/hr IV .[id number] PRN PRN Reason: Additional IVPB Infusion Enteral Nutritional Formula (Vital High Protein) 1,000 mls @ 65 mls/hr GT .[id number] [facility] Last Admin: 05/24/20 02:53 Dose: 65 mls/hr Documented by: Pantoprazole Sodium 40 mg/ (Sodium Chloride) 110 mls @ 330 mls/hr IV Q12 [facility] Last Infusion: 05/24/20 08:19 Dose: Infused Documented by: Fentanyl Citrate 1,000 mcg/ (Sodium Chloride) 100 mls @ 5 mls/hr CONT INF .Q20H KEERTHI; Protocol Last Titration: 05/24/20 13:00 Dose: 100 mcg/hr, 10 mls/hr Documented by: Propofol (Diprivan) 1,000 mg in 100 mls @ 7.584 mls/hr CONT INF .Q12H [facility]; Protocol Last Titration: 05/24/20 13:00 Dose: 20 mcg/kg/min, 15.2 mls/hr Documented by: Insulin Glargine (Insulin Glargine 100 Units/Ml Pen) 35 units SC BID [facility] Last Admin: 05/24/20 07:55 Dose: 35 u Documented by: Insulin Human Lispro (Insulin Lispro 100 Unit/Ml Insuln.Pen) 0 unit SC Q6 KEERTHI; Protocol Last Admin: 05/24/20 11:55 Dose: 9 u Documented by: Magnesium Hydroxide (Magnesium Hydroxide 30 Ml Udc) 30 ml GT DAILY PRN PRN PRN Reason: Constipation Last Admin: 05/15/20 05:54 Dose: 30 ml Documented by: Nitroglycerin (Nitroglycerin (Inpatient Use) 0.4 Mg Tab.Subl) 0.4 mg SUBLINGUAL Q5M PRN PRN Reason: CARDIAC/CHEST PAIN Nystatin (Nystatin Powder 15gm Bottle) 1 applic TOPICAL TID [facility]; Protocol Last Admin: 05/24/20 11:56 Dose: 1 applicatio Documented by: Ondansetron HCl (Ondansetron 4 Mg/2 Ml Vial) 4 mg IV Q8H PRN PRN PRN Reason: NAUSEA/VOMITING Last Admin: 05/11/20 09:14 Dose: 4 mg Documented by: Polyethylene Glycol (Polyethylene Glycol 3350 17 Gm Packet) 17 gm PO DAILY PRN PRN Reason: CONSTIPATION Prochlorperazine Edisylate (Prochlorperazine 10 Mg/2 Ml Vial) 5 mg IV Q4H PRN PRN PRN Reason: Breakthrough nausea/vomiting Quetiapine Fumarate (Quetiapine 25 Mg Tablet) 50 mg GT BID [facility] Last Admin: 05/24/20 07:56 Dose: 50 mg Documented by: Senna/Docusate Sodium (Senna/Docusate Sodium 1 Tablet) 2 tablet GT BID PRN PRN Reason: CONSTIPATION Sodium Chloride (0.9% Saline Lock 10 Ml Syringe) 10 - 40 ml IV UD PRN PRN Reason: SALINE FLUSH Last Admin: 05/22/20 08:46 Dose: 10 ml Documented by: Sodium Chloride (Sodium Chloride 0.65% 1 [place].Btl) 2 spray NASAL TID PRN PRN PRN Reason: NASAL DRYNESS Last Admin: 05/06/20 21:47 Dose: 2 spray Documented by: Medical Necessity - Tobacco Use Smoking Status: Never smoker Route of nutrition/ use of supplements: [] Nutritional Intake: [] IV Site: [] Rao Catheter: [] - Assessment/Plan Antibiotics: [] Assessment/Plan: [] Active and Suspected Problems Hyperglycemia due to diabetes mellitus (Acute) COVID-19 (Acute) Hypoxemia (Acute) Pulmonary embolism (Acute) Sepsis (Acute) Shortness of breath (Acute) Intraperitoneal bleeding (Suspected) covid with hypoxia and PEs - sx started 04/23, (+) covid as an outpt. On dex, anticoagulation, and completed remdesivir. 1 of 2 bcx with CoNS, consistent with contaminant. Sputum with haemophilus and strep, treated with 7 days of ceftriaxone. Now intubated 2/3, sputum cx neg so far. Extended course of dex. Out of iso. Off abx. Will follow
[2020-05-24 14:12] LABS: Pathologist Review Reviewed
[2020-05-24 14:15] LABS: Pathologist Review Reviewed
[2020-05-24 17:15] LABS: Bedside Glucose 287 mg/dL (70-110)
[2020-05-24] MEDS: Atorvastatin Calcium 20 MG Tablet GT (21:01)
[2020-05-24] MEDS: 0.9% Saline Lock 10 ML Syringe IV (23:27)
[2020-05-24 23:35] LABS: Bedside Glucose 286 mg/dL (70-110)
[2020-05-25] VITALS (25 sets, daily range): BP systolic 84–173; BP diastolic 50–87; PULSE 77–132; RESP 12–28; TEMP 37.7–38.6; O2SAT 74–95
[2020-05-25] MEDS: Propofol 10MG/Ml 1,000 MG/100 ML Bottle 15.2 MG CONT INF (02:57)
[2020-05-25] MEDS: TITRATION PARAMETER CHANGE 1 EACH IV (03:42)
[2020-05-25] MEDS: 0.9% Saline Lock 10 ML Syringe IV ×10 (04:06→22:33)
[2020-05-25 04:10] LABS: Absolute Lymphocyte Count 0.68 X10^3/uL (0.83-4.51); Absolute Neutrophil Count 1.7 X10^3/uL (2.0-7.7); Eosinophil# 0.18 X10^3/uL; Eosinophils% 6.5 % (0-5); Hematocrit 30.9 % (40-54); Hemoglobin 9.7 g/dL (13.0-16.5); Lymphocyte # 0.68 X10^3/ul (4.0); Lymphocyte % 24.5 % (19-41); Mean Corp Hgb Conc 31.4 g/dL (32-36); Mean Corpuscular Hgb 30.8 pg (27.0-32.0); Mean Corpuscular Volume 98.1 fL (80-94); Mean Platelet Vol. 11.7 fl (6.2-12.0); Monocyte# 0.21 X10^3/uL; Monocyte% 7.6 % (0-10); NRBC Flagged by Analyzer 0 % (0-5); Neutrophil # 1.67 X10^3/uL (2.7-7.7); POSITIVE COUNT YES; RBC Distribution Width CV 15.5 % (11.6-14.6); RBC Distribution Width SD 54.2 fl (35.1-43.9); Red Blood Count 3.15 M/mm3 (4.6-6.2); White Blood Count 2.8 K/mm3 (4.4-11.0)
[2020-05-25 04:12] LABS: Differential Indicated SCAN CRITERIA MET; Platelet Count 45 K/mm3 (150-450)
[2020-05-25 04:21] LABS: Platelet Estimate MKD DEC (ADEQ)
[2020-05-25 04:25] LABS: Anion Gap 1 (5-15); BUN 37 mg/dL (7-18); BUN/Creat Ratio 59.2 RATIO (10-20); Calcium,Total 7.9 mg/dL (8.5-10.1); Chloride 109 mmol/L (98-107); Creatinine, Serum 0.62 mg/dL (0.70-1.30); EST Glomerular Filtration Rate 135 mL/min (>60); Est Glom Filt Rate - Afr Amer 163 mL/min (>60); Estimated Creatinine Clearance 61.14 ml/min; Glucose 258 mg/dL (74-106); Potassium 3.8 mmol/L (3.5-5.1); Sodium Level 142 mmol/L (136-145)
[2020-05-25] MEDS: Insulin Lispro 100 UNIT/ML INSULN.PEN SC ×2 (05:24→11:39)
[2020-05-25] MEDS: Nystatin Powder 15gm Bottle 1 APPLIC TOPICAL (05:32)
[2020-05-25] MEDS: Menthol/Lanolin/Calamine/Znox 113 GM Tube 1 APPLIC TOPICAL (05:33)
[2020-05-25] MEDS: Acetaminophen 650 MG/20 ML UDC GT ×2 (05:35→11:48)
[2020-05-25 05:41] LABS: Bedside Glucose 253 mg/dL (70-110)
--- NOTE | 2020-05-25 07:26 | PN_ITS ---
Subjective: Patient did okay overnight. Patient continues to have significant secretions requiring frequent suctioning. Patient was able to have a spontaneous breathing trial this morning and did tolerate an hour. Patient was tachypneic, but was able to tolerate with good oxygenation. General: - - Intubated and sedated. Not following commands. Fair vent synchrony. HEENT: Atraumatic, PERRLA, EOMI, Normocephalic, - - Scleral injection without icterus Oral: Moist Mucosa, No Gingival or Mucosal Lesions/ Ulcerations Neck: Supple, No JVD, No Nodes, Trachea Midline Lungs: No rales, Diminished, Rhonchi, Wheezes, - - Symmetric expansion Cardiovascular: Normal S1, Normal S2, No murmurs, No rub noted, No Gallop, Tachycardic Abdomen: Bowel Sounds Present, Soft, Non Tender, Non-Distended Extremities: No clubbing, No cyanosis, Edema Skin: No rashes, No breakdown Musculoskeletal: No Tenderness to Palpation of Joints or Extremities Lymphatic: No Cervical, Supraclavicular, or Inguinal Adenopathy Neurological: Cranial nerves II-XII grossly intact, Neuro grossly intact, Motor Exam 5/5 strength throughout Psych/Mental Status: Alert and oriented to time, place, person, mood and affect Vital Signs Temp Pulse Resp BP Pulse Ox 38.2 C H 103 H 28 H 173/68 H 89 05/25/20 06:00 05/25/20 06:00 05/25/20 06:00 05/25/20 06:00 05/25/20 06:00 Oxygen Flow Rate (L/min) 60 Oxygen Delivery Method Mechanical Ventilator Weight: 131.7 kg Body Mass Index (BMI) 42.2 Finger Stick Blood Glucose 161 Intake and Output for Last 24 Hours 05/23/20 05/24/20 05/25/20 23:59 23:59 23:59 Intake Total 3225.63 / 3251.23 2842.02 / 2867.22 544.83 / 544.83 Output Total 1575 / 1575 975 / 975 305 / 305 Balance 1650.63 / 1676.23 1867.02 / 1892.22 239.83 / 239.83 Labs (Last 48 Hours) 05/23/20 05/23/20 05/23/20 03:30 11:09 17:40 WBC RBC Hgb Hct MCV MCH MCHC RDW Std Deviation RDW Coeff of Taras Plt Count MPV Immature Gran % (Auto) Neut % (Auto) Lymph % (Auto) [place] % (Auto) Eos % (Auto) Baso % (Auto) Absolute Neuts (auto) Absolute Lymphs (auto) Nucleated RBC % Diff Path Review Reviewed Platelet Estimate Sodium Potassium Chloride Carbon Dioxide Anion Gap BUN Creatinine Estim Creat Clear Calc Est GFR (MDRD) Af Amer Est GFR (MDRD) Non-Af BUN/Creatinine Ratio Glucose Calcium Total Bilirubin AST ALT Alkaline Phosphatase Total Protein Albumin Globulin Albumin/Globulin Ratio POC Glucose 142 H 203 H 05/23/20 05/24/20 05/24/20 23:23 04:30 04:30 WBC 3.6 L RBC 3.48 L Hgb 10.7 L Hct 34.1 L MCV 98.0 H MCH 30.7 MCHC 31.4 L RDW Std Deviation 54.5 H RDW Coeff of Taras 15.6 H Plt Count 40 L* MPV 12.2 H Immature Gran % (Auto) 1.700 H Neut % (Auto) 65.3 Lymph % (Auto) 20.8 [place] % (Auto) 6.6 Eos % (Auto) 5.3 H Baso % (Auto) 0.3 Absolute Neuts (auto) 2.4 Absolute Lymphs (auto) 0.75 L Nucleated RBC % 0 Diff Path Review Reviewed Platelet Estimate MKD DEC Sodium 143 Potassium 4.2 Chloride 109 H Carbon Dioxide 30.0 Anion Gap 4 L BUN 37 H Creatinine 0.70 Estim Creat Clear Calc 61.14 Est GFR (MDRD) Af Amer 144 Est GFR (MDRD) Non-Af 119 BUN/Creatinine Ratio 53.1 H Glucose 279 H Calcium 8.0 L Total Bilirubin 1.50 H AST 64 H ALT 91 H Alkaline Phosphatase 205 H Total Protein 5.5 L Albumin 1.2 L Globulin 4.3 H Albumin/Globulin Ratio 0.3 L POC Glucose 252 H 05/24/20 05/24/20 05/24/20 05:26 11:53 17:02 WBC RBC Hgb Hct MCV MCH MCHC RDW Std Deviation RDW Coeff of Taras Plt Count MPV Immature Gran % (Auto) Neut % (Auto) Lymph % (Auto) [place] % (Auto) Eos % (Auto) Baso % (Auto) Absolute Neuts (auto) Absolute Lymphs (auto) Nucleated RBC % Diff Path Review Platelet Estimate Sodium Potassium Chloride Carbon Dioxide Anion Gap BUN Creatinine Estim Creat Clear Calc Est GFR (MDRD) Af Amer Est GFR (MDRD) Non-Af BUN/Creatinine Ratio Glucose Calcium Total Bilirubin AST ALT Alkaline Phosphatase Total Protein Albumin Globulin Albumin/Globulin Ratio POC Glucose 253 H 290 H 287 H 05/24/20 05/25/20 05/25/20 23:22 04:00 04:00 WBC 2.8 L RBC 3.15 L Hgb 9.7 L Hct 30.9 L MCV 98.1 H MCH 30.8 MCHC 31.4 L RDW Std Deviation 54.2 H RDW Coeff of Taras 15.5 H Plt Count 45 L* MPV 11.7 Immature Gran % (Auto) 1.400 H Neut % (Auto) 60.0 Lymph % (Auto) 24.5 [place] % (Auto) 7.6 Eos % (Auto) 6.5 H Baso % (Auto) 0.0 Absolute Neuts (auto) 1.7 L Absolute Lymphs (auto) 0.68 L Nucleated RBC % 0 Diff Path Review May foll Platelet Estimate MKD DEC Sodium 142 Potassium 3.8 Chloride 109 H Carbon Dioxide 32.0 Anion Gap 1 L BUN 37 H Creatinine 0.62 L Estim Creat Clear Calc 61.14 Est GFR (MDRD) Af Amer 163 Est GFR (MDRD) Non-Af 135 BUN/Creatinine Ratio 59.2 H Glucose 258 H Calcium 7.9 L Total Bilirubin AST ALT Alkaline Phosphatase Total Protein Albumin Globulin Albumin/Globulin Ratio POC Glucose 286 H 05/25/20 05:22 WBC RBC Hgb Hct MCV MCH MCHC RDW Std Deviation RDW Coeff of Taras Plt Count MPV Immature Gran % (Auto) Neut % (Auto) Lymph % (Auto) [place] % (Auto) Eos % (Auto) Baso % (Auto) Absolute Neuts (auto) Absolute Lymphs (auto) Nucleated RBC % Diff Path Review Platelet Estimate Sodium Potassium Chloride Carbon Dioxide Anion Gap BUN Creatinine Estim Creat Clear Calc Est GFR (MDRD) Af Amer Est GFR (MDRD) Non-Af BUN/Creatinine Ratio Glucose Calcium Total Bilirubin AST ALT Alkaline Phosphatase Total Protein Albumin Globulin Albumin/Globulin Ratio POC Glucose 253 H Medical Necessity - Tobacco Use Smoking Status: Never smoker Assessment/Plan All Active Problems Hyperglycemia due to diabetes mellitus (Acute) COVID-19 (Acute) Hypoxemia (Acute) Pulmonary embolism (Acute) Sepsis (Acute) History of cholecystectomy (Resolved) Shortness of breath (Acute) RECOMMENDATIONS: 1. Continue to wean FiO2 and PEEP to maintain saturations at or above 90%. 2. Continue to hold all forms of systemic anticoagulation over concerns for GI blood loss. 3. Continue PPI therapy twice daily. 4. Discontinue tube feeds. 1 dose of Lantus this morning 5. Initiate atropine drops. 6. Continue empiric antimicrobials. 7. Anticipate palliative extubation later today IMPRESSIONS: 1. Acute hypoxemic respiratory failure secondary to COVID-19 pneumonia and bilateral pulmonary emboli The patient was initially admitted to the hospital and diagnosed with COVID-19 pneumonia and bilateral pulmonary emboli. Over the course of his hospitalization, the patient continued to decompensate from a respiratory perspective, requiring increasing amounts of supplemental oxygen. The patient eventually required intubation on May 12. Plan to continue the patient on assist control mode of mechanical ventilation and wean FiO2 and PEEP to maintain saturations at or above 90%. The patient has completed a treatment course of remdesivir and Decadron. Patient has not been able to tolerate anticoagulation secondary to bowel issues. After discussion with the family yesterday, conservative measures will be used today. Patient was able to tolerate a spontaneous breathing trial, so may need hospice evaluation. We will monitor in the hospital for at least 24 hours before hospice is involved. Atropine will be added for secretions. 2. Melena/occult blood positive stools Plan to continue current supportive measures with twice daily PPI therapy. The patient is unable to tolerate any form of systemic anticoagulation without developing increased GI blood loss. Continue to monitor H&H daily. No current indication for transfusion of blood products. 3. Diabetes mellitus/hypertension/hyperlipidemia/BPH/obesity/paroxysmal atrial fibrillation Complicates care, management, recovery and prognosis. Continue home medications as indicated. Physical therapy to work with the patient as tolerated. Continue sliding scale insulin coverage. Will restart Lantus at half dose given progression of hyperglycemia. TIME: 34 minutes of critical care time, independent of procedures, was spent addressing the patient's acute hypoxemic respiratory failure, COVID-19 pneumonia, pulmonary emboli, possible lower GI bleeding, review of all data and collaboration with the care team. (5:45 AM to 6:45 AM) [id number]: [id number] Critical care first hour
[2020-05-25] MEDS: Chlorhexidine 15 ML PO (07:56)
[2020-05-25] MEDS: Ibuprofen 600 MG Tablet PO (09:54)
[2020-05-25] MEDS: QUEtiapine 25 MG Tablet 50 MG GT (09:56)
[2020-05-25] MEDS: Cyanocobalamin 500 MCG Tablet 1000 MCG GT (09:56)
[2020-05-25] MEDS: CHLORHEXIDINE GLUC 2% CLOTH 1 EACH TOWELETTE TOPICAL (09:56)
[2020-05-25 11:46] LABS: Bedside Glucose 187 mg/dL (70-110)
[2020-05-25] MEDS: Propofol 10MG/Ml 1,000 MG/100 ML Bottle 15.8 MG CONT INF (11:48)
--- NOTE | 2020-05-25 13:29 | PN_ITS ---
Patient Problems: Active and Suspected Problems Hyperglycemia due to diabetes mellitus (Acute) COVID-19 (Acute) Hypoxemia (Acute) Pulmonary embolism (Acute) Sepsis (Acute) Shortness of breath (Acute) Intraperitoneal bleeding (Suspected) Subjective: Still on vent. SBT attempted today. Family to come in today. Vitals/I&O's: Vital Signs Temp Pulse Resp BP Pulse Ox 38.3 C H 84 15 84/52 L 93 05/25/20 12:00 05/25/20 13:00 05/25/20 13:00 05/25/20 13:00 05/25/20 13:00 Oxygen Flow Rate (L/min) 60 Oxygen Delivery Method Mechanical Ventilator Weight: 131.7 kg Body Mass Index (BMI) 42.2 Finger Stick Blood Glucose 161 Intake and Output for Last 24 Hours 05/23/20 05/24/20 05/25/20 23:59 23:59 23:59 Intake Total 3225.63 / 3251.23 2842.02 / 2867.22 899.63 / 899.63 Output Total 1575 / 1575 975 / 975 505 / 505 Balance 1650.63 / 1676.23 1867.02 / 1892.22 394.63 / 394.63 General: - - intubated and sedated. afebrile. Lungs: Diminished, - - coarse breath sounds bilaterally. Cardiovascular: Regular rate, Regular Rhythm, Normal S1, Normal S2 Abdomen: Bowel Sounds Present, Soft, Non Tender, Non-Distended, No Hepato-spl enomegaly Extremities: No Calf Tenderness Laboratory Results 05/23/20 03:30: Diff Path Review Reviewed 05/24/20 04:30: Diff Path Review Reviewed 05/24/20 17:02: POC Glucose 287 H 05/24/20 23:22: POC Glucose 286 H 05/25/20 04:00: WBC 2.8 L, RBC 3.15 L, Hgb 9.7 L, Hct 30.9 L, MCV 98.1 H, MCH 30.8, MCHC 31.4 L, RDW Std Deviation 54.2 H, RDW Coeff of Taras 15.5 H, Plt Count 45 L*, MPV 11.7, Immature Gran % (Auto) 1.400 H, Neut % (Auto) 60.0, Lymph % (Auto) 24.5, [place] % (Auto) 7.6, Eos % (Auto) 6.5 H, Baso % (Auto) 0.0, Absolute Neuts (auto) 1.7 L, Absolute Lymphs (auto) 0.68 L, Nucleated RBC % 0, Diff Path Review August foll, Platelet Estimate MKD 05/25/20 04:00: Sodium 142, Potassium 3.8, Chloride 109 H, Carbon Dioxide 32.0, Anion Gap 1 L, BUN 37 H, Creatinine 0.62 L, Estim Creat Clear Calc 61.14, Est GFR (MDRD) Af Amer 163, Est GFR (MDRD) Non-Af 135, BUN/Creatinine Ratio 59.2 H, Glucose 258 H, Calcium 7.9 L 05/25/20 05:22: POC Glucose 253 H 05/25/20 11:38: POC Glucose 187 H Current Medications Acetaminophen (Acetaminophen 650 Mg/20 Ml Udc) 650 mg GT Q6H PRN PRN PRN Reason: Pain Score 1-10/Temp > 100.7 F Last Admin: 05/25/20 11:48 Dose: 650 mg Documented by: Al Hydroxide/Mg Hydroxide (Mag Hydrox/Al Hydrox/Simeth 30 Ml Udc) 30 ml GT Q6H PRN PRN PRN Reason: Gastric Burning Albuterol Sulfate (Albuterol Ih 8.5 Gm (Proair) Inhaler (200 Puffs)) 2.5 puff INHALATION Q2H PRN PRN PRN Reason: Shortness of Breath/Wheezing Last Admin: 05/09/20 18:57 Dose: 2.5 puff Documented by: Atorvastatin Calcium (Atorvastatin Calcium 20 Mg Tablet) 20 mg GT QHS KEERTHI Last Admin: 05/24/20 21:01 Dose: 20 mg Documented by: Atropine Sulfate (Atropine Sulfate 1% 2 Ml Bottle) 4 drop PO Q3H PRN PRN PRN Reason: CONGESTION Calamine/Phenol (Menthol/Lanolin/Calamine/Znox 113 Gm Tube) 1 applic TOPICAL TID [facility]; Protocol Last Admin: 05/25/20 05:33 Dose: 1 applicatio Documented by: Chlorhexidine Gluconate (Chlorhexidine 15 Ml) 15 ml PO BID [facility] Last Admin: 05/25/20 07:56 Dose: 15 ml Documented by: Chlorhexidine Gluconate (Chlorhexidine Gluc 2% Cloth 1 Each Towelette) 1 each TOPICAL DAILY KEERTHI Last Admin: 05/25/20 09:56 Dose: 1 each Documented by: Cholecalciferol (Cholecalciferol (Vit D3) 1,000 Unit (25mcg)) 1,000 unit GT BID KEERTHI Last Admin: 05/25/20 09:55 Dose: 1,000 unit Documented by: Cyanocobalamin (Cyanocobalamin 500 Mcg Tablet) 1,000 mcg GT DAILY KEERTHI Last Admin: 05/25/20 09:56 Dose: 1,000 mcg Documented by: Dextrose (Dextrose 50%-Water 25 Gm/50 Ml Disp.Syrin) 0 gm IV X1 PRN; Protocol PRN Reason: Hypoglycemia Last Admin: 05/11/20 03:54 Dose: 12.5 gm Documented by: Glucagon (Glucagon 1 Mg/Ml Syringe) 1 mg IM .X1 PRN PRN Reason: Hypoglycemia Sodium Chloride () 250 mls @ 15 mls/hr IV .[id number] PRN PRN Reason: Saline Flush Last Infusion: 05/24/20 21:20 Dose: Infused Documented by: Sodium Chloride () 250 mls @ 15 mls/hr IV .[id number] PRN PRN Reason: Additional IVPB Infusion Pantoprazole Sodium 40 mg/ (Sodium Chloride) 110 mls @ 330 mls/hr IV Q12 KEERTHI Last Infusion: 05/25/20 11:47 Dose: Infused Documented by: Fentanyl Citrate 1,000 mcg/ (Sodium Chloride) 100 mls @ 5 mls/hr CONT INF .Q20H KEERTHI; Protocol Last Titration: 05/25/20 13:00 Dose: 100 mcg/hr, 10 mls/hr Documented by: Propofol (Diprivan) 1,000 mg in 100 mls @ 7.902 mls/hr CONT INF .Q12H KEERTHI; Protocol Last Titration: 05/25/20 13:00 Dose: 20 mcg/kg/min, 15.8 mls/hr Documented by: Insulin Human Lispro (Insulin Lispro 100 Unit/Ml Insuln.Pen) 0 unit SC Q6 KEERTHI; Protocol Last Admin: 05/25/20 11:39 Dose: 3 u Documented by: Magnesium Hydroxide (Magnesium Hydroxide 30 Ml Udc) 30 ml GT DAILY PRN PRN PRN Reason: Constipation Last Admin: 05/15/20 05:54 Dose: 30 ml Documented by: Nitroglycerin (Nitroglycerin (Inpatient Use) 0.4 Mg Tab.Subl) 0.4 mg SUBLINGUAL Q5M PRN PRN Reason: CARDIAC/CHEST PAIN Nystatin (Nystatin Powder 15gm Bottle) 1 applic TOPICAL TID [facility]; Protocol Last Admin: 05/25/20 05:32 Dose: 1 applicatio Documented by: Ondansetron HCl (Ondansetron 4 Mg/2 Ml Vial) 4 mg IV Q8H PRN PRN PRN Reason: NAUSEA/VOMITING Last Admin: 05/11/20 09:14 Dose: 4 mg Documented by: Polyethylene Glycol (Polyethylene Glycol 3350 17 Gm Packet) 17 gm PO DAILY PRN PRN Reason: CONSTIPATION Prochlorperazine Edisylate (Prochlorperazine 10 Mg/2 Ml Vial) 5 mg IV Q4H PRN PRN PRN Reason: Breakthrough nausea/vomiting Quetiapine Fumarate (Quetiapine 25 Mg Tablet) 50 mg GT BID [facility] Last Admin: 05/25/20 09:56 Dose: 50 mg Documented by: Senna/Docusate Sodium (Senna/Docusate Sodium 1 Tablet) 2 tablet GT BID PRN PRN Reason: CONSTIPATION Sodium Chloride (0.9% Saline Lock 10 Ml Syringe) 10 - 40 ml IV UD PRN PRN Reason: SALINE FLUSH Last Admin: 05/25/20 09:54 Dose: 10 ml Documented by: Sodium Chloride (Sodium Chloride 0.65% 1 [place].Btl) 2 spray NASAL TID PRN PRN PRN Reason: NASAL DRYNESS Last Admin: 05/06/20 21:47 Dose: 2 spray Documented by: STROKE Vital Signs/Narrative: Vital Signs Temp Pulse Resp BP BP Pulse Ox 05/25/20 13:00 84 15 84/52 L 93 05/25/20 12:00 38.3 C H 86 15 106/51 L 92 05/25/20 11:08 88 05/25/20 11:00 88 15 87/52 L 92 05/25/20 10:00 38.4 C H 86 16 140/57 H 93 Medical Necessity - Tobacco Use Smoking Status: Never smoker Assessment/Plan All Active Problems Hyperglycemia due to diabetes mellitus (Acute) COVID-19 (Acute) Hypoxemia (Acute) Pulmonary embolism (Acute) Sepsis (Acute) History of cholecystectomy (Resolved) Shortness of breath (Acute) 1. Acute hypoxic respiratory failure secondary * multifactorial * on vent with FiO2 50% * family en route today for possible terminal extubation 2. acute bilateral pneumonia, pneumococcal and H. influenza: * completed pip/tazo 3. bilateral pulmonary emboli secondary to acute COVID-19 viral syndrome * anticoagulation held given GI bleed. 4. acute COVID 19 pneumonia: * completed dexa and rem-d 5. Acute GI bleed with melanotic stools noted to be occult blood positive: * / anticoagulation and thrombocytopenia * anticoagulation held. * Stools per staff have transition from maroon-colored to brown. 6. Acute on Chronic thrombocytopenia: * Admission platelets 56, improved following anticoagulation hold however despit e this hold trended down again with noted 05/17/2020 platelets 56, heparin drip trial as noted 05/17/20 failed, 05/23/20 CBC w/ plts 45, continue to closely monitor. Prior baseline platelets appeared primarily 60-80. 7. Transaminitis: * Ongoing * Admission 05/03/2020 AST/ALT 26/28, alk phos 68 with eventual rise starting on 05/13/2020 with total bilirubin 1.40, AST/ALT 53/78, alk phos 119-->05/23/2020 total bilirubin 1.60, AST/ALT 120/132, alk phos 213, continues to slowly rise again, had been initially improving, secondary to #1. 8. Diabetes mellitus type II * uncontrolled * glargine increased * continue SSI 9. PAF: * off anticoagulation given #5 10. Hypertension: * BPs remain low normal step following IV Lasix and ministration with hypotension transiently, outpatient normally on atenolol, losartan, continue to hold. 11. Hyperlipidemia: We will continue patient statin therapy. 12. Morbid Obesity: Weight loss and lifestyle changes will be encouraged once patient becomes cognizant/extubated if appropriate, nutrition consulted and following as noted for tube feeds. 13. MARIELLE: Currently intubated and sedated as noted above. 14. GERD: Currently on IV PPI as noted above. 15. DVT prophylaxis: SCDs, heparin drip unsuccessful, not anticoagulated. 16. CODE STATUS: DNR CCA, no intubation status, Inpatient E&M: [id number] [facility] Hosp L2
[2020-05-25 14:23] LABS: Pathologist Review Reviewed
[2020-05-25] MEDS: Atropine Sulfate 1% 2 ml Bottle 4 DRP PO ×3 (15:05→21:10)
[2020-05-25] MEDS: LORazepam 2 MG/ML Syringe IV ×7 (15:06→22:32)
[2020-05-25] MEDS: Morphine 2 MG/ML Syringe IV ×7 (15:06→19:54)
--- NOTE | 2020-05-25 16:57 | CHAPLAIN ---
Type of Pastoral Visit ___ Initial Visit ___ Follow-up Visit ___ On-call Visit ___ General Patient Visit ___ Spiritual Assessment ___ Family Conference ___ Bereavement ___ Rapid Response ___ Code Blue _x__ Other (describe below) Pastoral Care Referral From ___ Patient _x__ Family _x__ Nurse ___ Physician ___ Compliance Field Technician ___ Tack Puller ___ Other (describe below) Sacrament/Intervention _x__ Active listening ___ Anointing ___ Sabianism ___ Bereavement ___ Communion ___ Shelia exploration ___ ___ Life review _x__ Prayer ___ Reconciliation ___ Sacrament of Sick _x__ Supportive presence ___ Wedding ___ Other (describe below) Pastoral Comments patient was to be extubated and RN made referral for support of Shipping Weigher; many family members are present as well as superintendent of schools of patient; offer of support; presence given; time to listen to a brother talk; gave lap blanket for patient and family; time for family given as they wait for patient to ;
--- NOTE | 2020-05-25 20:21 | NURSING ---
and dtr at bedside. Pt's fingerprints on hearts and pt's heartbeat given to family. Also given pt.'s ICU diary from stay. Belongings logged and will take home.
--- NOTE | 2020-05-25 20:45 | NURSING ---
and dtr leaving to go home. Pt's belongings given to . Explained to that we will call if pt. passes.
[2020-05-25] MEDS: Morphine 4 MG/ML Syringe IV ×2 (21:27→22:31)
[2020-05-26] MEDS: Atropine Sulfate 1% 2 ml Bottle 4 DRP PO ×2 (00:20→04:55)
[2020-05-26] MEDS: Morphine 2 MG/ML Syringe IV ×2 (00:20→10:13)
[2020-05-26] MEDS: LORazepam 2 MG/ML Syringe IV ×5 (00:20→10:12)
[2020-05-26] MEDS: 0.9% Saline Lock 10 ML Syringe IV ×5 (00:21→10:13)
[2020-05-26] MEDS: Morphine 4 MG/ML Syringe IV ×3 (02:43→06:26)
[2020-05-26 03:00] VITALS: BP 153/91; PULSE 134; RESP 25; TEMP 38.8; O2SAT 74
[2020-05-26] MEDS: Acetaminophen 650 MG Suppository RC (03:05)
[2020-05-26 08:25] VITALS: BP 108/53; PULSE 127; RESP 21; TEMP 37.5; O2SAT 64
--- NOTE | 2020-05-26 10:13 | CASEMGMT ---
Addendum entered by Haily Pollock 05/26/20 13:45: TRISTIN spoke with Tyree at [facility] and they are able to accept pt to the IPU. 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 SW notified RN of d/c arrangements and RN notified SW that pt has . Nursing to notify pt . TRISTIN updated [facility]. MIKE Skinner Original Note: Social Work TRISTIN spoke with Dr. López and RN. Pt would be appropriate for Inpatient Hospice Unit at this time. TRISTIN placed call to pt Louise and discussed options and she is agreeable to referral to [facility]. Referral made to Tyree at [facility] and clinical information faxed. Tyree to review information and contact pt and will then call TRISTIN back with determination on admission to IPU. RN updated. MIKE Skinner
--- NOTE | 2020-05-26 12:55 | DCINST_ITS ---
- Discharge Diagnoses Current Active Problems: Current Active and Chronic Problems Hyperglycemia due to diabetes mellitus (Acute) COVID-19 (Acute) Hypoxemia (Acute) Pulmonary embolism (Acute) Sepsis (Acute) Hyperlipidemia (Chronic) Diabetes mellitus, type II (Chronic) Morbid obesity (Chronic) Shortness of breath (Acute) Hypertension (Chronic) Paroxysmal atrial fibrillation (Chronic) Obstructive sleep apnea (Chronic) You will use the following diet at home:: No restrictions Allergies/Adverse Reactions: Allergies adhesive Allergy (Verified 08/30/17 13:53) Hives Sulfa (Sulfonamide Antibiotics) Allergy (Verified 08/30/17 13:53) Hives Medications to take at Discharge Acetaminophen [Tylenol Suppository] 650 mg RC Q6H PRN PRN suppos. 05/26/20 Albuterol IH (ProAir) [Proair Hfa] 2.5 puff INHALATION Q2H PRN PRN inhaler 05/26/20 Atropine [Atropisol] 4 drop PO Q3H PRN PRN bottle 05/26/20 Primary Care Physician: Nishant Waller MD [Primary Care Provider] - Test Results: Test results from this visit will be discussed in further detail at your follow- up appointment, if applicable. Proposed Discharge Date: 05/26/20
--- NOTE | 2020-05-26 12:57 | DS.PCM_ITS ---
Discharge Date and Diagnosis - Problem List Patient Problems: Active and Suspected Problems Hyperglycemia due to diabetes mellitus (Acute) COVID-19 (Acute) Hypoxemia (Acute) Pulmonary embolism (Acute) Sepsis (Acute) Shortness of breath (Acute) Intraperitoneal bleeding (Suspected) Date of Admission: 05/03/20 Date of Discharge: 05/26/20 - Primary Discharge Diagnosis Acute Problems: Active Problems 1. Acute hypoxic respiratory failure secondary * multifactorial * terminal extubation 05/25. Sats staying in 70% range 2. acute bilateral pneumonia, pneumococcal and H. influenza: * completed pip/tazo 3. bilateral pulmonary emboli secondary to acute COVID-19 viral syndrome * anticoagulation held given GI bleed. 4. acute COVID 19 pneumonia: * completed dexa and rem-d 5. Acute GI bleed with melanotic stools noted to be occult blood positive: * 05/11 anticoagulation and thrombocytopenia * anticoagulation held. * Stools per staff have transition from maroon-colored to brown. 6. Acute on Chronic thrombocytopenia: * Admission platelets 56, improved following anticoagulation hold however despite this hold trended down again with noted 05/17/2020 platelets 56, heparin drip trial as noted 05/17/20 failed, 05/23/20 CBC w/ plts 45, continue to closely monitor. Prior baseline platelets appeared primarily 60-80. 7. Transaminitis: * Ongoing * Admission 05/03/2020 AST/ALT 26/28, alk phos 68 with eventual rise starting on 05/13/2020 with total bilirubin 1.40, AST/ALT 53/78, alk phos 119-->05/23/2020 total bilirubin 1.60, AST/ALT 120/132, alk phos 213, continues to slowly rise again, had been initially improving, secondary to #1. Suspected Problems: Suspected Problems Intraperitoneal bleeding (Suspected) - Secondary Discharge Diagnosis Chronic Problems: Chronic Problems Hyperlipidemia (Chronic) Diabetes mellitus, type II (Chronic) Morbid obesity (Chronic) Hypertension (Chronic) Paroxysmal atrial fibrillation (Chronic) Obstructive sleep apnea (Chronic) 8. Diabetes mellitus type II * uncontrolled * glargine increased * continue SSI 9. PAF: * off anticoagulation given #5 10. Hypertension: * BPs remain low normal step following IV Lasix and ministration with hypotension transiently, outpatient normally on atenolol, losartan, continue to hold. 11. Hyperlipidemia: We will continue patient statin therapy. 12. Morbid Obesity: Weight loss and lifestyle changes will be encouraged once patient becomes cognizant/extubated if appropriate, nutrition consulted and following as noted for tube feeds. 13. MARIELLE: Currently intubated and sedated as noted above. 14. GERD: Currently on IV PPI as noted above. Hospital Course and Treatment Imaging Results: Clinical Impression(s) from Imaging Studies Chest X-Ray 05/03/20 08:55 IMPRESSION: Minimal increased markings at the left lung base with blunting of left costophrenic angle. There has been no change since prior study. Electronically Signed: Casimiro Marie MD at 9:09 EST , Service support , Chest CTA 05/03/20 09:36 IMPRESSION: Multiple bilateral pulmonary emboli involving branches of the lower lobe pulmonary arteries. Multiple bilateral pulmonary infiltrates as described. Splenomegaly. Electronically Signed: Casimiro Marie MD at 10:41 EST , Service support , Chest X-Ray 05/10/20 13:01 IMPRESSION: Patchy bilateral pulmonary infiltrates in a peripheral distribution worse in the left hemithorax. Findings are in keeping with Covid. Electronically Signed: Casimiro Marie MD at 13:48 EST , Service support , Chest X-Ray 05/12/20 09:35 IMPRESSION: The tip of the endotracheal tube is at 4.5 cm proximal to the adonis. Stable bilateral patchy pulmonary infiltrates in a peripheral distribution. Electronically Signed: Casimiro Marie MD at 10:45 EST , Service support , Chest X-Ray 05/12/20 16:43 IMPRESSION: 1. Interval placement of left-sided PICC line with the tip within the mid SVC. No pneumothorax. 2. No significant interval change of cardiopulmonary status. at 1824 Reported and signed by: Keagan Hensley MD Electronically Signed: Keagan Hensley MD at 18:23 EST Tel , Service support , Chest X-Ray 05/14/20 05:17 IMPRESSION: Support apparatus as above. Diffuse pulmonary infiltrates. Nonspecific however can be seen with infectious inflammatory process. Findings can be seen with an atypical viral infectious process given patient''s history. Recommend follow-up imaging to resolution. No significant change in the appearance of the lungs. Electronically Signed: Dennis Baldwin MD at 6:32 EST Tel , Service support , Consultations 05/17/20 15:50 Consult: Onc/Wound/carbon lamp cleaner Routine Comment: Reason for Consult:: Worsening excoriation and open areas to groin and coccyx CCM, ID Nephrology Operations: None Procedures: Intubation Summary of Care Provided: The patient is a 69 year old M presents with shortness of breath.[] 1. Acute hypoxic respiratory failure secondary * multifactorial * on vent with FiO2 50% * terminal extubation 05/25, sats staying in 70% range. Unresponsive. TF to Inpatient hospice unit. MAEVE Baez who accepted the patient to the inpatient hospice unit. 2. acute bilateral pneumonia, pneumococcal and H. influenza: * completed pip/tazo 3. bilateral pulmonary emboli secondary to acute COVID-19 viral syndrome * anticoagulation held given GI bleed. 4. acute COVID 19 pneumonia: * completed dexa and rem-d 5. Acute GI bleed with melanotic stools noted to be occult blood positive: * 2/ anticoagulation and thrombocytopenia * anticoagulation held. * Stools per staff have transition from maroon-colored to brown. 6. Acute on Chronic thrombocytopenia: * Admission platelets 56, improved following anticoagulation hold however despite this hold trended down again with noted 05/17/2020 platelets 56, heparin drip trial as noted 05/17/20 failed, 05/23/20 CBC w/ plts 45, continue to closely monitor. Prior baseline platelets appeared primarily 60-80. 7. Transaminitis: * Ongoing * Admission 05/03/2020 AST/ALT 26/28, alk phos 68 with eventual rise starting on 05/13/2020 with total bilirubin 1.40, AST/ALT 53/78, alk phos 119-->05/23/2020 total bilirubin 1.60, AST/ALT 120/132, alk phos 213, continues to slowly rise again, had been initially improving, secondary to #1. 8. Diabetes mellitus type II * uncontrolled * glargine increased * continue SSI 9. PAF: * off anticoagulation given #5 10. Hypertension: * BPs remain low normal step following IV Lasix and ministration with hypotension transiently, outpatient normally on atenolol, losartan, continue to hold. 11. Hyperlipidemia: We will continue patient statin therapy. 12. Morbid Obesity: Weight loss and lifestyle changes will be encouraged once patient becomes cognizant/extubated if appropriate, nutrition consulted and following as noted for tube feeds. 13. MARIELLE: Currently intubated and sedated as noted above. 14. GERD: Currently on IV PPI as noted above. 15. DVT prophylaxis: SCDs, heparin drip unsuccessful, not anticoagulated. 16. CODE STATUS: DNR CCA, no intubation status, Patient Problems: Active and Suspected Problems Hyperglycemia due to diabetes mellitus (Acute) COVID-19 (Acute) Hypoxemia (Acute) Pulmonary embolism (Acute) Sepsis (Acute) Shortness of breath (Acute) Intraperitoneal bleeding (Suspected) - Physical Exam Vitals/I&O's: Vital Signs Temp Pulse Resp BP Pulse Ox 37.5 C H 127 H 21 H 108/53 L 64 05/26/20 08:25 05/26/20 08:25 05/26/20 08:25 05/26/20 08:25 05/26/20 08:25 Oxygen Flow Rate (L/min) 2 Oxygen Delivery Method Nasal Cannula Weight: 131.7 kg Body Mass Index (BMI) 42.2 Finger Stick Blood Glucose 161 Intake and Output for Last 24 Hours 05/24/20 05/25/20 05/26/20 23:59 23:59 23:59 Intake Total 2842.02 / 2867.22 915.69 / 915.69 Output Total 975 / 975 705 / 705 Balance 1867.02 / 1892.22 210.69 / 210.69 -30 / -30 General: - - unresponsive. short shallow breaths. HEENT: Atraumatic, Normocephalic Lungs: Diminished, - - coarse breath sounds bilaterally. Cardiovascular: Regular rate, Regular Rhythm, Normal S1, Normal S2, No murmurs Abdomen: Bowel Sounds Present, Soft, Non Tender, Non-Distended, No Hepato- splenomegaly Laboratory Results 05/25/20 04:00: Diff Path Review Reviewed Current Medications Acetaminophen (Acetaminophen 650 Mg Suppository) 650 mg RC Q6H PRN PRN PRN Reason: temp >100.4 Last Admin: 05/26/20 03:05 Dose: 650 mg Documented by: Al Hydroxide/Mg Hydroxide (Mag Hydrox/Al Hydrox/Simeth 30 Ml Udc) 30 ml GT Q6H PRN PRN PRN Reason: Gastric Burning Albuterol Sulfate (Albuterol Ih 8.5 Gm (Proair) Inhaler (200 Puffs)) 2.5 puff INHALATION Q2H PRN PRN PRN Reason: Shortness of Breath/Wheezing Last Admin: 05/09/20 18:57 Dose: 2.5 puff Documented by: Atropine Sulfate (Atropine Sulfate 1% 2 Ml Bottle) 4 drop PO Q3H PRN PRN PRN Reason: CONGESTION Last Admin: 05/26/20 04:55 Dose: 4 drop Documented by: Calamine/Phenol (Menthol/Lanolin/Calamine/Znox 113 Gm Tube) 1 applic TOPICAL TID PRN; Protocol PRN Reason: RASH/TOPICAL IRRITATION Dextrose (Dextrose 50%-Water 25 Gm/50 Ml Disp.Syrin) 0 gm IV X1 PRN; Protocol PRN Reason: Hypoglycemia Last Admin: 05/11/20 03:54 Dose: 12.5 gm Documented by: Glucagon (Glucagon 1 Mg/Ml Syringe) 1 mg IM .X1 PRN PRN Reason: Hypoglycemia Sodium Chloride () 250 mls @ 15 mls/hr IV .[id number] PRN PRN Reason: Saline Flush Last Infusion: 05/24/20 21:20 Dose: Infused Documented by: Sodium Chloride () 250 mls @ 15 mls/hr IV .[id number] PRN PRN Reason: Additional IVPB Infusion Lorazepam (Lorazepam 2 Mg/Ml Syringe) 2 - 8 mg IV Q1H PRN PRN PRN Reason: ANXIETY Last Admin: 05/26/20 10:12 Dose: 2 mg Documented by: Magnesium Hydroxide (Magnesium Hydroxide 30 Ml Udc) 30 ml GT DAILY PRN PRN PRN Reason: Constipation Last Admin: 05/15/20 05:54 Dose: 30 ml Documented by: Morphine Sulfate (Morphine 2 Mg/Ml Syringe) 2 - 8 mg IV Q1H PRN PRN PRN Reason: dyspnea Last Admin: 05/26/20 10:13 Dose: 2 mg Documented by: Morphine Sulfate (Morphine 4 Mg/Ml Syringe) 2 - 8 mg IV Q1H PRN PRN PRN Reason: dyspnea Last Admin: 05/26/20 06:26 Dose: 4 mg Documented by: Nitroglycerin (Nitroglycerin (Inpatient Use) 0.4 Mg Tab.Subl) 0.4 mg SUBLINGUAL Q5M PRN PRN Reason: CARDIAC/CHEST PAIN Ondansetron HCl (Ondansetron 4 Mg/2 Ml Vial) 4 mg IV Q8H PRN PRN PRN Reason: NAUSEA/VOMITING Last Admin: 05/11/20 09:14 Dose: 4 mg Documented by: Polyethylene Glycol (Polyethylene Glycol 3350 17 Gm Packet) 17 gm PO DAILY PRN PRN Reason: CONSTIPATION Prochlorperazine Edisylate (Prochlorperazine 10 Mg/2 Ml Vial) 5 mg IV Q4H PRN PRN PRN Reason: Breakthrough nausea/vomiting Senna/Docusate Sodium (Senna/Docusate Sodium 1 Tablet) 2 tablet GT BID PRN PRN Reason: CONSTIPATION Sodium Chloride (0.9% Saline Lock 10 Ml Syringe) 10 - 40 ml IV UD PRN PRN Reason: SALINE FLUSH Last Admin: 05/26/20 10:13 Dose: 20 ml Documented by: Sodium Chloride (Sodium Chloride 0.65% 1 Mobile Mobile.Btl) 2 spray NASAL TID PRN PRN PRN Reason: NASAL DRYNESS Last Admin: 05/06/20 21:47 Dose: 2 spray Documented by: Home Medications: Medications to take at Discharge Acetaminophen [Tylenol Suppository] 650 mg RC Q6H PRN PRN suppos. 05/26/20 Albuterol IH (ProAir) [Proair Hfa] 2.5 puff INHALATION Q2H PRN PRN inhaler 05/26/20 Atropine [Atropisol] 4 drop PO Q3H PRN PRN bottle 05/26/20 Primary Care Physician: Nishant Waller MD [Primary Care Provider] - Please Follow Up With: Logan RENEE cardiology When: Will call you with new appointment Please Follow Up With: Angelito Payne MD When: Sunday Disposition: Inpt Rehab Unit/Facility Minutes spent on discharge:: 32 Patient Condition:: Poor Medical Necessity - Tobacco Use Smoking Status: Never smoker Meaningful Use Info Meaningful Use Diagnoses (Choose all that apply): None applicable Inpatient E&M: [id number] [facility]
[2020-05-26 13:00] VITALS: BP 78/36; PULSE 98; RESP 22; TEMP 38.2; O2SAT 75
--- NOTE | 2020-05-26 13:47 | EXP.PCM_ITS ---
Preliminary Cause of COVID 19 Date of Admission: 05/03/20 Date of : 05/26/20 - Principle Diagnosis 1. Acute hypoxic respiratory failure secondary * multifactorial * on vent with FiO2 50% * family en route today for possible terminal extubation 2. acute bilateral pneumonia, pneumococcal and H. influenza: * completed pip/tazo 3. bilateral pulmonary emboli secondary to acute COVID-19 viral syndrome * anticoagulation held given GI bleed. 4. acute COVID 19 pneumonia: * completed dexa and rem-d 5. Acute GI bleed with melanotic stools noted to be occult blood positive: * 2/ anticoagulation and thrombocytopenia * anticoagulation held. * Stools per staff have transition from maroon-colored to brown. 6. Acute on Chronic thrombocytopenia: * Admission platelets 56, improved following anticoagulation hold however despite this hold trended down again with noted 05/17/2020 platelets 56, heparin drip trial as noted 05/17/20 failed, 05/23/20 CBC w/ plts 45, continue to closely monitor. Prior baseline platelets appeared primarily 60-80. 7. Transaminitis: * Ongoing * Admission 05/03/2020 AST/ALT 26/28, alk phos 68 with eventual rise starting on 05/13/2020 with total bilirubin 1.40, AST/ALT 53/78, alk phos 119-->05/23/2020 total bilirubin 1.60, AST/ALT 120/132, alk phos 213, continues to slowly rise again, had been initially improving, secondary to #1. 8. Diabetes mellitus type II * uncontrolled * glargine increased * continue SSI 9. PAF: * off anticoagulation given #5 10. Hypertension: * BPs remain low normal step following IV Lasix and ministration with hypotension transiently, outpatient normally on atenolol, losartan, continue to hold. 11. Hyperlipidemia: We will continue patient statin therapy. 12. Morbid Obesity: Weight loss and lifestyle changes will be encouraged once patient becomes cognizant/extubated if appropriate, nutrition consulted and following as noted for tube feeds. 13. MARIELLE: Currently intubated and sedated as noted above. 14. GERD: Currently on IV PPI as noted above. 15. DVT prophylaxis: SCDs, heparin drip unsuccessful, not anticoagulated. Problem List: Active and Suspected Problems Hospital Course Patient presents with shortness of breath. Symptoms have COVID-19 pneumonia. Subsequently intubated. Course was complicated by pneumonia, pulmonary emboli, GI bleed, thrombocytopenia. Patient was not progressing. Contact was urgently held with the family who presented on the and terminal extubation was performed. Patient remained stable though 20% pulse ox and survived overnight. Plan today was to transfer the patient to the inpatient hospice unit, however the patient started declining and subsequently at 1335 on May 26, 2020. Inpatient E&M: [id number] [facility]
--- NOTE | 2020-05-26 13:50 | NURSING ---
PT at 1335, confirmed w/ L.Jimmy GOSS. PT not in any distress at time of . This RN and CORRESPONDENCE SCHOOL INSTRUCTOR holding his hands for comfort. , Louise notified.
--- NOTE | 2020-05-26 15:43 | CHAPLAIN ---
Type of Pastoral Visit ___ Initial Visit ___ Follow-up Visit ___ On-call Visit ___ General Patient Visit ___ Spiritual Assessment ___ Family Conference ___ Bereavement ___ Rapid Response ___ Code Blue _x__ Other (describe below) Pastoral Care Referral From ___ Patient ___ Family ___ Nurse ___ Physician ___ Manager Nursing Home ___ Foaming Machine Operator _x__ Other (describe below) Sacrament/Intervention ___ Active listening ___ Anointing ___ Bahai ___ Bereavement ___ Communion ___ Shelia exploration ___ ___ Life review ___ Prayer ___ Reconciliation ___ Sacrament of Sick ___ Supportive presence ___ Wedding _x__ Other (describe below) Pastoral Comments came into unit to check on this patient that had been expected to yesterday; in fact the patient had about 10 minutes before my arrival; no family was present at this time; entered room for a moment of silence and prayer; offered support to staff members that had cared for patient over the last days
== END 2020-05-26 13:35 | DRG 207 ==
LOC: ED 11:15 → MS2 11:25 → ICU 05-10 14:30
PROVIDERS: Family Medicine; Internal Medicine; Internal Medicine Critical Care Medicine; Internal Medicine Infectious Disease; Admitting Provider Internal Medicine; Emergency Provider Emergency Medicine; PCP Family Medicine
DX: U07.1 COVID-19 (principal); J96.01 Acute respiratory failure with hypoxia; J12.82 Pneumonia due to coronavirus disease 2019; I26.99 Other pulmonary embolism without acute cor pulmonale; Z68.42 Body mass index [BMI] 45.0-49.9, adult; D68.59 Other primary thrombophilia; R78.81 Bacteremia; R04.2 Hemoptysis; K92.1 Melena; B95.7 Other staphylococcus as the cause of diseases classified elsewhere; B96.3 Hemophilus influenzae [H. influenzae] as the cause of diseases classified elsewhere; B95.1 Streptococcus, group B, as the cause of diseases classified elsewhere; R00.1 Bradycardia, unspecified; I95.9 Hypotension, unspecified; R74.01 Elevation of levels of liver transaminase levels; R00.0 Tachycardia, unspecified; E11.65 Type 2 diabetes mellitus with hyperglycemia; E78.5 Hyperlipidemia, unspecified; E66.01 Morbid (severe) obesity due to excess calories; I10 Essential (primary) hypertension; G47.33 Obstructive sleep apnea (adult) (pediatric); I48.0 Paroxysmal atrial fibrillation; Z90.49 Acquired absence of other specified parts of digestive tract; Z66 Do not resuscitate; N40.0 Benign prostatic hyperplasia without lower urinary tract symptoms; D69.6 Thrombocytopenia, unspecified; Z79.01 Long term (current) use of anticoagulants; Z79.4 Long term (current) use of insulin; Z79.899 Other long term (current) drug therapy; Z82.0 Family history of epilepsy and other diseases of the nervous system; Z86.718 Personal history of other venous thrombosis and embolism; Z86.73 Personal history of transient ischemic attack (TIA), and cerebral infarction without residual deficits; Z86.711 Personal history of pulmonary embolism; K21.9 Gastro-esophageal reflux disease without esophagitis
CPT/HCPCS: 31500; 31720; 36415; 36569; 36600; 71045; 71275; 80048; 80053; 82274; 82550; 82803; 82962; 83605; 83735; 83880; 84100; 84145; 84478; 84484; 85014; 85018; 85025; 85379; 85384; 85610; 85730; 86140; 87040; 87070; 87077; 87149; 87186; 87205; 87426; 87449; 87641; 93005; 94002; 94003; 94660; 97110; 97162; 97166; 97530; 97802; 99251; 99285; J7040; J7050; Q9967; A4216; C1752; G0463; J0696; J1940; J2405; J3010